=== PATIENT | male | born 1935 | race Caucasian/White ===

== ENCOUNTER 2017-06-18 09:41 | Emergency (ER) | payer OTHER ==
--- OUTSIDE RECORDS SUMMARY | 2017-06-18 09:43 | XMS REPORT | Clinical Summary ---
:1935 Author Organization [facility] Address [address] [place] [address] Phone Care Team Providers Name Role Phone Unavailable Primary Care Provider Unavailable Allergies No Known Allergies Current Medications Prescription Sig. Disp. Refills Start Date End Date Status aspirin 81 MG EC Take 81 mg by Active tabletIndications: mouth daily. myocardial infarction prevention atorvastatin (LIPITOR) 40 Take 40 mg by Active MG tabletIndications: mouth daily. hyperlipidemia levothyroxine (SYNTHROID, Take 100 mcg by Active LEVOTHROID) 100 MCG mouth Every tabletIndications: morning on an hypothyroidism empty stomach. DULoxetine (CYMBALTA) 60 Take 60 mg by Active MG capsuleIndications: mouth daily. Diabetic Peripheral Neuropathy SITagliptin-metFORMIN Take 1 tablet by Active (JANUMET) 50-1,000 mg per mouth 2 (two) tabletIndications: type 2 times daily with diabetes mellitus breakfast and dinner. valACYclovir (VALTREX) 500 Take 500 mg by Active MG tabletIndications: mouth daily. shingles tamsulosin (FLOMAX) 0.4 mg Take 0.4 mg by Active Cp24 24 hr mouth daily. capsuleIndications: Symptomatic Benign Prostatic Hyperplasia magnesium oxide (MAG-OX) Take 400 mg by Active 400 mg tablet mouth 2 (two) times daily. omeprazole (PRILOSEC) 40 Take 40 mg by Active MG capsuleIndications: mouth daily. gastroesophageal reflux disease midodrine (PROAMATINE) 10 Take 10 mg by Active MG tablet mouth 3 (three) times daily. fluticasone (VERAMYST) 2 sprays by Nasal Active 27.5 mcg/actuation nasal route daily. 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 Hypothyroidism 04/19/2017 Acute blood loss anemia 04/15/2017 Lower gastrointestinal bleeding 04/15/2017 RAHUL (acute kidney injury) (HCC) 04/15/2017 Encounters Date Type Specialty Care Team Description 04/17/2017 Anesthesia Event Gastroenterology Hilton Davis MD 04/17/2017 Procedure Pass Gastroenterology 04/17/2017 Surgery Gastroenterology Ken, COLONOSCOPY Roddy Gamez MD 04/15/2017 Hospital Intensive Care Annemarie, Acute blood loss - Encounter MD Kimberley anemia;Gastrointestina 04/20/2017 Mercer, l hemorrhage Dereddi Raja associated with MD Seymour intestinal diverticulosis;RAHUL (acute kidney injury) (HCC);Lower gastrointestinal bleeding 04/15/2017 Orders Only General Internal Medicine 04/15/2017 Telephone Critical Care Medicine Annemarie, GI bleeding MD Kimberley after 06/17/2016 Social History Tobacco Use Types Packs/Day Years Used Date Former Smoker Smokeless Tobacco: Former User Quit: 11/15/1968 Alcohol Use Drinks/Week oz/Week Comments Yes 1 Glasses of wine 0.6 Sex Assigned at Date Recorded Not on file Last Filed Vital Signs Vital Sign Reading Time Taken Blood Pressure 106/59 04/20/2017 5:00 PM EQUIPMENT MONITOR PHOTOTYPESETTING Pulse 93 04/20/2017 4:00 PM E[employer]IPMENT MON[employer]OR PHOTOTYPESETTING Temperature 36.9 C (98.5 F) 04/20/2017 4:00 PM E[employer]IPMENT MON[employer]OR PHOTOTYPESETTING Respiratory Rate 27 04/20/2017 4:00 PM E[employer]IPMENT MONITOR PHOTOTYPESETTING Oxygen Saturation 99% 04/20/2017 5:00 PM EQUIPMENT MONITOR PHOTOTYPESETTING Inhaled Oxygen Concentration - - Weight 92.5 kg (203 lb 14.8 oz) 04/20/2017 4:30 AM E[employer]IPMENT MONITOR PHOTOTYPESETTING Height 185.4 cm (6' 0.99") 04/20/2017 4:30 AM EQUIPMENT MONITOR PHOTOTYPESETTING Body Mass Index 26.91 04/20/2017 4:30 AM E[employer]IPMENT MON[employer]OR PHOTOTYPESETTING Plan of Treatment Not on file Procedures Procedure Name Priority Date/Time Associated Diagnosis Comments COLONOSCOPY 04/17/2017 10:00 AM EQUIPMENT MONITOR PHOTOTYPESETTING HEMATOCHEZIA Special Needs COLON WITH ANES after 06/17/2016 Results RHYTHM STRIP - SCAN (04/23/2017 8:50 AM)TRANSFUSION SERVICE REPORT - SCAN (07/2017 5:53 PM)Only the most recent of5 resultswithin the time period is included.POC-Glucose meter (04/20/2017 11:00 AM)Only the most recent of16 resultswithin the time period is included. Component Value Ref Range POC-Glucose Meter 238 (H)Comment: TESTED AT [address] 70 - 110 mg/[place] [address] Specimen Performing Laboratory Blood [address] [address] TSH/Free T4 If Indicated (04/20/2017 4:29 AM) Component Value Ref Range TSH 4.44 0.35 - 4.94 uIU/mL Specimen Performing Laboratory Blood - Line, Venous [address] [address] CBC with platelet count + automated diff (04/20/2017 4:29 AM)Only the most recent of6 resultswithin the time period is included. Component Value Ref Range WBC 6.3 3.5 - 10.5 K/L RBC 3.10 (L) 4.63 - 6.08 M/L Hemoglobin 9.1 (L) 13.7 - 17.5 GM/DL Hematocrit 27.7 (L) 40.1 - 51.0 % MCV 89.4 79.0 - 92.2 fL MCH 29.4 25.7 - 32.2 pg MCHC 32.9 32.3 - 36.5 GM/DL RDW 16.2 (H) 11.6 - 14.4 % Platelets 149 (L) 150 - 450 K/CU MM MPV 10.6 9.4 - 12.4 fL nRBC 0 0 - 0 /100 WBC % Neutros 60 % % Lymphs 17 % % Monos 10 % % Eos 11 % % Baso 1 % # Neutros 3.79 1.78 - 5.38 K/L # Lymphs 1.08 (L) 1.32 - 3.57 K/L # Monos 0.64 0.30 - 0.82 K/L # Eos 0.71 (H) 0.04 - 0.54 K/L # Baso 0.05 0.01 - 0.08 K/L Immature Granulocytes-Relative 1 0 - 1 % Specimen Performing Laboratory Blood - Line, Venous [address] [address] Hemoglobin and hematocrit (04/20/2017 4:29 AM)Only the most recent of12 resultswithin the time period is included. Component Value Ref Range Hemoglobin 9.1 (L) 13.7 - 17.5 GM/DL Hematocrit 27.7 (L) 40.1 - 51.0 % Specimen Performing Laboratory Blood - Line, [address] [address] CBC with platelet count + automated diff (04/20/2017 4:29 AM)Only the most recent of6 resultswithin the time period is included. Specimen Performing Laboratory Blood Narrative The following orders were created for panel order CBC with platelet count + automated diff. Procedure Abnormality Status --------- ------ CBC with platelet count ...[[id number]]AbnormalFinal result Please view results for these tests on the individual orders. Phosphorus (04/20/2017 4:29 AM)Only the most recent of6 resultswithin the time period is included. Component Value Ref Range Phosphorus 4.2 2.3 - 4.7 mg/dL Specimen Performing Laboratory Blood - Line, [address] [address] Magnesium (04/20/2017 4:29 AM)Only the most recent of6 resultswithin the time period is included. Component Value Ref Range Magnesium 1.8 1.6 - 2.6 mg/dL Specimen Performing Laboratory Blood - Line, [address] [address] Basic Metabolic Panel (04/20/2017 4:29 AM)Only the most recent of6 resultswithin the time period is included. Component Value Ref Range Sodium 137 136 - 145 meq/L Potassium 4.3 3.5 - 5.1 meq/L Chloride 108 (H) 98 - 107 meq/L CO2 23 22 - 29 meq/L BUN 13 7 - 21 mg/dL Creatinine 0.86 0.57 - 1.25 mg/dL Glucose 119 (H) 70 - 105 mg/dL Calcium 8.2 (L) 8.4 - 10.2 mg/dL EGFR 85Comment: ESTIMATED GFR IS NOT ACCURATE mL/min/1.73 sq m CREATININE CLEARANCE IN PREDICTING GLOMERULAR FILTRATION RATE. ESTIMATED GFR IS NOT APPLICABLE FOR DIALYSIS PATIENTS. Specimen Performing Laboratory Blood - Line, [address] [place] [address] Prepare Leuko-Red RBC (04/19/2017 11:54 PM)Only the most recent of2 resultswithin the time period is included. Component Value Ref Range CROSSMATCH COMPATIBLE Unit ABO O Pos UNIT NUMBER [id number] Status TRANSFUSED Blood Bank Product RED BLOOD CELLS PRODUCT CODE [id number] CROSSMATCH COMPATIBLE Unit ABO O Pos UNIT NUMBER [id number] Status TRANSFUSED Blood Bank Product RED BLOOD CELLS PRODUCT CODE [id number] Specimen Performing Laboratory Other [employer] [place] Transfuse Leuko-Red RBC (04/18/2017 9:46 AM)Only the most recent of2 resultswithin the time period is included.REPORT OF PROCEDURE - ENDOSCOPY URL ( 04/17/2017 12:14 PM)PT/aPTT (04/17/2017 5:39 AM)Only the most recent of2 resultswithin the time period is included. Component Value Ref Range Protime 15.4 (H) 11.7 - 14.7 seconds INR 1.2 <=5.9 PTT 28.3 22.5 - 36.0 seconds Specimen Performing Laboratory Blood [address] [address] Narrative RECOMMENDED COUMADIN/WARFARIN INR THERAPY RANGES STANDARD DOSE: 2.0 - 3.0 Includes: PROPHYLAXIS for venous thrombosis, systemic embolization; TREATMENT for venous thrombosis and/or pulmonary embolus. HIGH RISK: Target INR is 2.5-3.5 for patients with mechanical heart valves. Prothrombin time/INR (04/17/2017 5:39 AM)Only the most recent of3 resultswithin the time period is included. Component Value Ref Range Protime 15.4 (H) 11.7 - 14.7 seconds INR 1.2 <=5.9 Specimen Performing Laboratory Blood [address] [address] Narrative RECOMMENDED COUMADIN/WARFARIN INR THERAPY RANGES STANDARD DOSE: 2.0 - 3.0 Includes: PROPHYLAXIS for venous thrombosis, systemic embolization; TREATMENT for venous thrombosis and/or pulmonary embolus. HIGH RISK: Target INR is 2.5-3.5 for patients with mechanical heart valves. ECG 12 lead (04/15/2017 7:56 PM) Specimen Performing Laboratory GE [facility] Narrative Ventricular Rate 79 BPM Atrial Rate 79 BPM P-R Interval 150 ms QRS Duration 120 ms Q-T Interval 400 ms QTC Calculation(Bazett) 458 ms P Lenox 73 degrees R Lenox -4 degrees T Lenox 42 degrees Normal sinus rhythm Low voltage QRS Right bundle branch block Cannot rule out Inferior infarct , age undetermined Abnormal ECG No previous ECGs available Confirmed by MD ROONEY JOSEPH P ([id number]) on 04/16/2017 6:12:09 AM Procedure Note Interface, External Ris In - 04/16/2017 7:07 AM EQUIPMENT MONITOR PHOTOTYPESETTING Ventricular Rate 79 BPM Atrial Rate 79 BPM P-R Interval 150 ms QRS Duration 120 ms Q-T Interval 400 ms QTC Calculation(Bazett) 458 ms P Lenox 73 degrees R Lenox -4 degrees T Lenox 42 degrees Normal sinus rhythm Low voltage QRS Right bundle branch block Cannot rule out Inferior infarct , age undetermined Abnormal ECG No previous ECGs available Confirmed by MD ROONEY JOSEPH P ([id number]) on 04/16/2017 6:12:09 AM IR Visceral Arteriogram (04/15/2017 6:56 PM) Specimen Performing Laboratory [facility] [employer] Narrative FINAL REPORT Mesenteric angiogram, 04/15/2017. History: GI bleed. Modality: Fluoroscopy. Sedation: Versed 1.0 mg and fentanyl 50 mcg was given intravenously for conscious sedation.Vital signs were monitored throughout the procedure by a nurse, and remained stable. Physician intra-service time was 30 minutes. Anesthesia:Two percent Lidocaine without epinephrine. Approach:Right common femoral artery. Estimated blood loss:< 5 cc. Specimen: None. straw hat machine operator: Maxim Sims MD. Cook Roast: None. Fluoroscopy Time: 2.1 min. Reference Air Kerma (Ka, r): 360 mGy. Technique: Informed written consent was obtained. Discussion of risks, benefits, and alternatives were made with the patient. The patient expressed understanding and agreed to proceed.A universal timeout was performed prior to starting the procedure.All elements maximal sterile barrier technique was utilized for this procedure, including utilization of sterile scrub solution for skin prep, a large sterile sheet to cover the areas of the patient that were not prepped, and hand hygiene, mask, head covering, and sterile gown for performing radiologist and scrub technologist. The skin was anesthetized with lidocaine. The right common femoral artery was accessed usinga 21-gauge micropuncture needle.A 0.018 inch wire was placed through the needle into the distal aorta. The needle was removed and a 4 Anguillan micropuncture sheath was placed, and the 0.018 wire was exchanged for 0.035 inch J-wire. A 5 Anguillan sheath was placed. A 5 Anguillan Ag B catheter was used to select the celiac trunk and SMA for multiple DSA runs. This was exchanged for a Ag reverse 2.5 catheter which was used to select the ANUP for multiple DSA runs. The catheter was removed. Injection was performed through the sheath for a DSA run of the right femoral artery. The sheath was removed, the arteriotomy was closed, and hemostasis was obtained using a Mynx closure device. Vital signs were monitored throughout the procedure by a nurse, and remained stable.The patient tolerated the procedure well and left the department in the same condition. FINDINGS: 1. Celiac injection: There is patency of the left gastric, gastroduodenal, and splenic arteries. The left hepatic artery is normal in appearance and patent without evidence of active extravasation, pseudoaneurysm, or abnormal vasculature. 2. SMA injection: The superior mesenteric artery and its branches are normal in appearance and patent without evidence of active extravasation, pseudoaneurysm, or abnormal vasculature to indicate site of prior bleed. There is replaced right hepatic artery arising from the SMA 3. ANUP injection: The inferior mesenteric artery and its branches are normal in appearance and patent without evidence of active extravasation, pseudoaneurysm, or abnormal vasculature. 4. Right femoral sheath injection: The right common femoral artery is patent with normal position of the arterial sheath. Impression: 1. Uncomplicated mesenteric angiogram. 2. No evidence of active GI bleed. 3. Arteriotomy hemostasis obtained with Mynx closure device. Signed: Maxim Sims MD Report Verified Date/Time:04/22/2017 16:35:40 Reading Location: [facility] [id number] Ultrasound Reading Room Procedure Note Interface, External Ris In - 04/22/2017 4:37 PM EQUIPMENT MONITOR PHOTOTYPESETTING FINAL REPORT Mesenteric angiogram, 04/15/2017. History: GI bleed. Modality: Fluoroscopy. Sedation: Versed 1.0 mg and fentanyl 50 mcg was given intravenously for conscious sedation. Vital signs were monitored throughout the procedure by a nurse, and remained stable. Physician intra-service time was 30 minutes. Anesthesia: Two percent Lidocaine without epinephrine. Approach: Right common femoral artery. Estimated blood loss: < 5 cc. Specimen: None. straw hat machine operator: Maxim Sims MD. Cook Roast: None. Fluoroscopy Time: 2.1 min. Reference Air Kerma (Ka, r): 360 mGy. Technique: Informed written consent was obtained. Discussion of risks, benefits, and alternatives were made with the patient. The patient expressed understanding and agreed to proceed. A universal timeout was performed prior to starting the procedure. All elements maximal sterile barrier technique was utilized for this procedure, including utilization of sterile scrub solution for skin prep, a large sterile sheet to cover the areas of the patient that were not prepped, and hand hygiene, mask, head covering, and sterile gown for performing radiologist and scrub technologist. The skin was anesthetized with lidocaine. The right common femoral artery was accessed using a 21-gauge micropuncture needle. A 0.018 inch wire was placed through the needle into the distal aorta. The needle was removed and a 4 Anguillan micropuncture sheath was placed, and the 0.018 wire was exchanged for 0.035 inch J-wire. A 5 Anguillan sheath was placed. A 5 Anguillan Ag B catheter was used to select the celiac trunk and SMA for multiple DSA runs. This was exchanged for a Ag reverse 2.5 catheter which was used to select the ANUP for multiple DSA runs. The catheter was removed. Injection was performed through the sheath for a DSA run of the right femoral artery. The sheath was removed, the arteriotomy was closed, and hemostasis was obtained using a Mynx closure device. Vital signs were monitored throughout the procedure by a nurse, and remained stable. The patient tolerated the procedure well and left the department in the same condition. FINDINGS: 1. Celiac injection: There is patency of the left gastric, gastroduodenal, and splenic arteries. The left hepatic artery is normal in appearance and patent without evidence of active extravasation, pseudoaneurysm, or abnormal vasculature. 2. SMA injection: The superior mesenteric artery and its branches are normal in appearance and patent without evidence of active extravasation, pseudoaneurysm, or abnormal vasculature to indicate site of prior bleed. There is replaced right hepatic artery arising from the SMA 3. ANUP injection: The inferior mesenteric artery and its branches are normal in appearance and patent without evidence of active extravasation, pseudoaneurysm, or abnormal vasculature. 4. Right femoral sheath injection: The right common femoral artery is patent with normal position of the arterial sheath. Impression: 1. Uncomplicated mesenteric angiogram. 2. No evidence of active GI bleed. 3. Arteriotomy hemostasis obtained with Mynx closure device. Signed: Maxim Sims MD Report Verified Date/Time: 04/22/2017 16:35:40 Reading Location: [facility] B1 [id number] Ultrasound Reading Room Procalcitonin (04/15/2017 5:23 PM) Component Value Ref Range Procalcitonin <0.05 <0.05 ng/mL Specimen Performing Laboratory [place] [address] Narrative SEPSIS RISK (ng/mL) Low:0.05-0.50 Intermediate: 0.51-2.00 High: >=2.01 XR chest 1 view portable / bedside (04/15/2017 5:23 PM) Specimen Performing Laboratory GE RIS Narrative FINAL REPORT TECHNIQUE: Frontal chest radiograph dated 04/15/2017. CLINICAL HISTORY: Shortness of breath COMPARISON STUDY: None IMPRESSION: Right-sided PICC is seen with the tip projected over the region of the right atrium. Lungs are clear. No pleural effusion or pneumothorax. Cardiomediastinal silhouette is normal in size. No pulmonary edema. Midline sternotomy wires are intact and well aligned. No fracture. Degenerative changes are seen in the spine. Anterior cervical fusion hardware is partially visualized. Signed: Bettye Diallo MD Report Verified Date/Time:04/15/2017 17:31:41 Reading Location: [facility] Radiology Reading Room Procedure Note Interface, External Ris In - 04/15/2017 5:33 PM EQUIPMENT MONITOR PHOTOTYPESETTING FINAL REPORT TECHNIQUE: Frontal chest radiograph dated 04/15/2017. CLINICAL HISTORY: Shortness of breath COMPARISON STUDY: None IMPRESSION: Right-sided PICC is seen with the tip projected over the region of the right atrium. Lungs are clear. No pleural effusion or pneumothorax. Cardiomediastinal silhouette is normal in size. No pulmonary edema. Midline sternotomy wires are intact and well aligned. No fracture. Degenerative changes are seen in the spine. Anterior cervical fusion hardware is partially visualized. Signed: Bettye Diallo MD Report Verified Date/Time: 04/15/2017 17:31:41 Reading Location: [facility] Radiology Reading Room Lactic acid, venous, whole blood (04/15/2017 5:23 PM) Component Value Ref Range Lactate, Venous 1.1 0.5 - 2.2 mmol/L Specimen Performing Laboratory Blood [address] [address] Narrative Effective 06/19/2015: Units/Reference Range Change New: 0.5-2.2 mmol/LPrevious: 5-20 mg/dL Type and screen, automated (04/15/2017 4:30 PM) Component Value Ref Range ABO/RH AUTOMATED (BEAKER) O POSITIVE Ab Scrn NEGATIVE Specimen Performing Laboratory Blood [address] [address] Hepatic function panel (04/15/2017 4:30 PM) Component Value Ref Range Protein, Total 4.5 (L) 6.0 - 8.3 gm/dL Albumin 2.8 (L) 3.5 - 5.0 g/dL Total Bilirubin 0.7 0.2 - 1.2 mg/dL Bilirubin, Direct 0.3 0.1 - 0.5 mg/dL Alkaline Phosphatase 34 (L) 40 - 150 U/L AST 16 5 - 34 U/L ALT 11 6 - 55 U/L Specimen Performing Laboratory Blood [address] [address] after 06/17/2016
--- OUTSIDE RECORDS SUMMARY | 2017-06-18 09:44 | XMS REPORT ---
:1935 Author Organization [facility] Address [address] [place] [address] Care Team Providers Name Role Phone COLIN ZULETA Unavailable Unavailable Problems This patient has no known problems. Allergies, Adverse Reactions, Alerts This patient has no known allergies or adverse reactions. Medications This patient has no known medications. Results Test Description Test Time Test Comments Text Results Atomic Results Result Comments TRACY RIDLEY 2017-04-22 16:35:00 FINAL REPORT Mesenteric angiogram, 04/15/2017. History: GI bleed. Modality: Fluoroscopy. Sedation: Versed 1.0 mg and fentanyl 50 mcg was given intravenously for conscious sedation. Vital signs were monitored throughout the procedure by a nurse, and remained stable. Physician intra-service time was 30 minutes. Anesthesia: Two percent Lidocaine without epinephrine. Approach: Right common femoral artery. Estimated blood loss: < 5 cc. Specimen: None. knitter operator: Maxim Sims MD. Freight And Passenger Agent: None. Fluoroscopy Time: 2.1 min.Reference Air Kerma (Ka, r): 360 mGy. Technique: [...] The needle was removed and a 4 [place] micropuncture sheath was placed, and the 0.018 wire was exchanged for 0.035 inch J-wire. A 5 [place] sheath was placed. A 5 [place] Ag B catheter was used to select [...] evidence of active extravasation, pseudoaneurysm, or abnormal vasculature.2. SMA injection: The superior mesenteric artery and its branches are normal in appearance and patent without evidence of active extravasation, pseudoaneurysm, or abnormal vasculature to indicate site of prior bleed. There is replaced right hepatic artery arising from the SMA3. ANUP injection: The inferior mesenteric artery and its branches are normal in appearance and patent without evidence of active extravasation, pseudoaneurysm, or abnormal vasculature.4. Right femoral sheath injection: The right common femoral artery is patent with normal position of the arterial sheath. Impression: 1. Uncomplicated mesenteric angiogram.2. No evidence of active GI bleed.3. Arteriotomy hemostasis obtained with Mynx closure device. Signed: Maxim Sims Verified Date/Time: 04/22/2017 16:35:40 Reading Location: [address] Ultrasound Reading Room -GLUCOSE METER 2017-04-20 11:27:00 Test Item Value Reference Range Comments POC-GLUCOSE METER (BEAKER) (test 238 mg/dL 70-110 TESTED AT [address] dsbf=3472) [facility] [address] POCT-GLUCOSE [id number] 08:08:00 Test Item Value Reference Range Comments POC-GLUCOSE METER (BEAKER) 146 mg/dL 70-110 TESTED AT [address] (test hzrj=0361) [facility] [address] TSH/FREE T4 IF [id number] 05:24:00 Test Item Value Reference Range Comments THYROID STIMULATING HORMONE (BEAKER) (test 4.44 uIU/mL 0.35-4.94 vcwt=980) [id number] 05:17:00 Test Item Value Reference Range Comments PHOSPHORUS (BEAKER) (test dzay=452) 4.2 mg/dL 2.3-4.7 [id number] 05:17:00 Test Item Value Reference Range Comments MAGNESIUM (BEAKER) (test ndvd=369) 1.8 mg/dL 1.6-2.6 BASIC METABOLIC [id number] 05:17:00 Test Item Value Reference Range Comments SODIUM (BEAKER) (test 137 meq/L 136-145 dkch=185) POTASSIUM (BEAKER) (test 4.3 meq/L 3.5-5.1 fdkx=319) CHLORIDE (BEAKER) (test 108 meq/L 98-107 pcui=096) CO2 (BEAKER) (test 23 meq/L 22-29 bwaj=860) BLOOD UREA NITROGEN 13 mg/dL 7-21 (BEAKER) (test sbja=581) CREATININE (BEAKER) (test 0.86 mg/dL 0.57-1.25 dach=150) GLUCOSE RANDOM (BEAKER) 119 mg/dL 70-105 (test btiq=564) CALCIUM (BEAKER) (test 8.2 mg/dL 8.4-10.2 yrln=867) EGFR (BEAKER) (test 85 mL/min/1.73 sq m ESTIMATED GFR IS NOT jkyb=5692) ACCURATE CREATININE CLEARANCE IN PREDICTING GLOMERULAR FILTRATION RATE. ESTIMATED GFR IS NOT APPLICABLE FOR DIALYSIS PATIENTS. CBC W/PLT COUNT & AUTO [id number] 04:53:00 Test Item Value Reference Range Comments WHITE BLOOD CELL COUNT (BEAKER) (test xlck=581) 6.3 K/ L 3.5-10.5 RED BLOOD CELL COUNT (BEAKER) (test npqt=876) 3.10 M/ L 4.63-6.08 HEMOGLOBIN (BEAKER) (test irmr=800) 9.1 GM/DL 13.7-17.5 HEMATOCRIT (BEAKER) (test efbm=946) 27.7 % 40.1-51.0 MEAN CORPUSCULAR VOLUME (BEAKER) (test edbs=647) 89.4 fL 79.0-92.2 MEAN CORPUSCULAR HEMOGLOBIN (BEAKER) (test 29.4 pg 25.7-32.2 obau=330) MEAN CORPUSCULAR HEMOGLOBIN CONC (BEAKER) (test 32.9 GM/DL 32.3-36.5 uqjw=018) RED CELL DISTRIBUTION WIDTH (BEAKER) (test 16.2 % 11.6-14.4 yewd=921) PLATELET COUNT (BEAKER) (test awqo=491) 149 K/CU MM 150-450 MEAN PLATELET VOLUME (BEAKER) (test awdc=903) 10.6 fL 9.4-12.4 NUCLEATED RED BLOOD CELLS (BEAKER) (test 0 /100 WBC 0-0 stiz=911) NEUTROPHILS RELATIVE PERCENT (BEAKER) (test 60 % ujgr=684) LYMPHOCYTES RELATIVE PERCENT (BEAKER) (test 17 % heit=533) MONOCYTES RELATIVE PERCENT (BEAKER) (test 10 % foks=089) EOSINOPHILS RELATIVE PERCENT (BEAKER) (test 11 % ykkc=369) BASOPHILS RELATIVE PERCENT (BEAKER) (test 1 % jpir=125) NEUTROPHILS ABSOLUTE COUNT (BEAKER) (test 3.79 K/ L 1.78-5.38 qqzh=100) LYMPHOCYTES ABSOLUTE COUNT (BEAKER) (test 1.08 K/ L 1.32-3.57 lejg=491) MONOCYTES ABSOLUTE COUNT (BEAKER) (test 0.64 K/ L 0.30-0.82 lbti=116) EOSINOPHILS ABSOLUTE COUNT (BEAKER) (test 0.71 K/ L 0.04-0.54 ptch=735) BASOPHILS ABSOLUTE COUNT (BEAKER) (test 0.05 K/ L 0.01-0.08 gqiw=910) IMMATURE GRANULOCYTES-RELATIVE PERCENT (BEAKER) 1 % 0-1 (test juju=2488) HEMOGLOBIN AND [id number] 04:48:00 Test Item Value Reference Range Comments HEMOGLOBIN (BEAKER) (test xrtq=658) 9.1 GM/DL 13.7-17.5 HEMATOCRIT (BEAKER) (test mcqi=400) 27.7 % 40.1-51.0 POCT-GLUCOSE [id number] 21:33:00 Test Item Value Reference Range Comments POC-GLUCOSE METER (BEAKER) 268 mg/dL 70-110 TESTED AT [address] (test edln=3989) [facility] [address] POCT-GLUCOSE [id number] 17:36:00 Test Item Value Reference Range Comments POC-GLUCOSE METER (BEAKER) 131 mg/dL 70-110 TESTED AT [address] (test uesx=6622) [facility] [address] HEMOGLOBIN AND [id number] 17:09:00 Test Item Value Reference Range Comments HEMOGLOBIN (BEAKER) (test scgv=869) 9.1 GM/DL 13.7-17.5 HEMATOCRIT (BEAKER) (test rkkr=601) 27.0 % 40.1-51.0 POCT-GLUCOSE [id number] 11:29:00 Test Item Value Reference Range Comments POC-GLUCOSE METER (BEAKER) 243 mg/dL 70-110 TESTED AT [address] (test okot=1690) [place] [id number] BASIC METABOLIC [id number] 04:05:00 Test Item Value Reference Range Comments SODIUM (BEAKER) (test 136 meq/L 136-145 xkvs=644) POTASSIUM (BEAKER) (test 3.8 meq/L 3.5-5.1 fbmo=856) CHLORIDE (BEAKER) (test 107 meq/L 98-107 hjbj=307) CO2 (BEAKER) (test 24 meq/L 22-29 dcuh=446) BLOOD UREA NITROGEN 11 mg/dL 7-21 (BEAKER) (test ocwv=397) CREATININE (BEAKER) (test 0.78 mg/dL 0.57-1.25 qqix=295) GLUCOSE RANDOM (BEAKER) 116 mg/dL 70-105 (test wfab=492) CALCIUM (BEAKER) (test 7.8 mg/dL 8.4-10.2 tuoa=408) EGFR (BEAKER) (test 96 mL/min/1.73 sq m ESTIMATED GFR IS NOT tpuu=9348) ACCURATE CREATININE CLEARANCE IN PREDICTING GLOMERULAR FILTRATION RATE. ESTIMATED GFR IS NOT APPLICABLE FOR DIALYSIS PATIENTS. [id number] 03:52:00 Test Item Value Reference Range Comments PHOSPHORUS (BEAKER) (test qcxn=156) 3.5 mg/dL 2.3-4.7 [id number] 03:52:00 Test Item Value Reference Range Comments MAGNESIUM (BEAKER) (test oulw=402) 1.6 mg/dL 1.6-2.6 CBC W/PLT COUNT & AUTO [id number] 03:42:00 Test Item Value Reference Range Comments WHITE BLOOD CELL COUNT (BEAKER) (test oqyw=706) 6.7 K/ L 3.5-10.5 RED BLOOD CELL COUNT (BEAKER) (test hqvr=397) 2.91 M/ L 4.63-6.08 HEMOGLOBIN (BEAKER) (test ztxj=731) 8.7 GM/DL 13.7-17.5 HEMATOCRIT (BEAKER) (test krqm=910) 25.8 % 40.1-51.0 MEAN CORPUSCULAR VOLUME (BEAKER) (test imzl=516) 88.7 fL 79.0-92.2 MEAN CORPUSCULAR HEMOGLOBIN (BEAKER) (test 29.9 pg 25.7-32.2 uejp=204) MEAN CORPUSCULAR HEMOGLOBIN CONC (BEAKER) (test 33.7 GM/DL 32.3-36.5 kmpe=265) RED CELL DISTRIBUTION WIDTH (BEAKER) (test 15.9 % 11.6-14.4 lqza=394) PLATELET COUNT (BEAKER) (test qsnk=995) 120 K/CU MM 150-450 MEAN PLATELET VOLUME (BEAKER) (test maen=279) 10.0 fL 9.4-12.4 NUCLEATED RED BLOOD CELLS (BEAKER) (test 0 /100 WBC 0-0 pbxx=209) NEUTROPHILS RELATIVE PERCENT (BEAKER) (test 66 % btym=082) LYMPHOCYTES RELATIVE PERCENT (BEAKER) (test 15 % wpel=822) MONOCYTES RELATIVE PERCENT (BEAKER) (test 9 % yqij=501) EOSINOPHILS RELATIVE PERCENT (BEAKER) (test 10 % glkv=336) BASOPHILS RELATIVE PERCENT (BEAKER) (test 0 % clqj=860) NEUTROPHILS ABSOLUTE COUNT (BEAKER) (test 4.39 K/ L 1.78-5.38 egeh=638) LYMPHOCYTES ABSOLUTE COUNT (BEAKER) (test 1.03 K/ L 1.32-3.57 puvg=940) MONOCYTES ABSOLUTE COUNT (BEAKER) (test 0.57 K/ L 0.30-0.82 ywcf=001) EOSINOPHILS ABSOLUTE COUNT (BEAKER) (test 0.64 K/ L 0.04-0.54 btzw=883) BASOPHILS ABSOLUTE COUNT (BEAKER) (test 0.03 K/ L 0.01-0.08 oazj=741) IMMATURE GRANULOCYTES-RELATIVE PERCENT (BEAKER) 1 % 0-1 (test ybct=3322) POCT-GLUCOSE [id number] 23:56:00 Test Item Value Reference Range Comments POC-GLUCOSE METER (BEAKER) 149 mg/dL 70-110 TESTED AT [address] (test qdqd=7347) [place] [address] HEMOGLOBIN AND [id number] 23:48:00 Test Item Value Reference Range Comments HEMOGLOBIN (BEAKER) (test wdct=945) 8.3 GM/DL 13.7-17.5 HEMATOCRIT (BEAKER) (test wqxw=496) 24.7 % 40.1-51.0 POCT-GLUCOSE [id number] 18:37:00 Test Item Value Reference Range Comments POC-GLUCOSE METER (BEAKER) 149 mg/dL 70-110 TESTED AT [address] (test dczw=7175) [place] [address] HEMOGLOBIN AND [id number] 14:27:00 Test Item Value Reference Range Comments HEMOGLOBIN (BEAKER) (test rawl=663) 9.0 GM/DL 13.7-17.5 HEMATOCRIT (BEAKER) (test lnfu=975) 27.0 % 40.1-51.0 POCT-GLUCOSE [id number] 12:21:00 Test Item Value Reference Range Comments POC-GLUCOSE METER (BEAKER) 122 mg/dL 70-110 TESTED AT [address] (test emxw=8766) [place] [address] BASIC METABOLIC [id number] 04:49:00 Test Item Value Reference Range Comments SODIUM (BEAKER) (test 136 meq/L 136-145 ahtw=827) POTASSIUM (BEAKER) (test 3.7 meq/L 3.5-5.1 susj=424) CHLORIDE (BEAKER) (test 109 meq/L 98-107 iyij=623) CO2 (BEAKER) (test 21 meq/L 22-29 apvg=915) BLOOD UREA NITROGEN 14 mg/dL 7-21 (BEAKER) (test svpw=343) CREATININE (BEAKER) (test 0.77 mg/dL 0.57-1.25 pqbu=617) GLUCOSE RANDOM (BEAKER) 134 mg/dL 70-105 (test wewe=066) CALCIUM (BEAKER) (test 7.6 mg/dL 8.4-10.2 qrke=454) EGFR (BEAKER) (test 97 mL/min/1.73 sq m ESTIMATED GFR IS NOT kdme=0628) ACCURATE CREATININE CLEARANCE IN PREDICTING GLOMERULAR FILTRATION RATE. ESTIMATED GFR IS NOT APPLICABLE FOR DIALYSIS PATIENTS. [id number] 04:43:00 Test Item Value Reference Range Comments MAGNESIUM (BEAKER) (test vuec=447) 1.5 mg/dL 1.6-2.6 [id number] 04:43:00 Test Item Value Reference Range Comments PHOSPHORUS (BEAKER) (test lcpk=244) 3.4 mg/dL 2.3-4.7 CBC W/PLT COUNT & AUTO [id number] 04:16:00 Test Item Value Reference Range Comments WHITE BLOOD CELL COUNT 5.2 K/ L 3.5-10.5 (BEAKER) (test xngm=256) RED BLOOD CELL COUNT (BEAKER) 2.25 M/ L 4.63-6.08 (test ftnu=901) HEMOGLOBIN (BEAKER) (test 6.7 GM/DL 13.7-17.5 egbg=205) HEMATOCRIT (BEAKER) (test 20.9 % 40.1-51.0 muyd=552) MEAN CORPUSCULAR VOLUME 92.9 fL 79.0-92.2 Discordant MCV results (BEAKER) (test urwt=476) compared to previous results; clinical correlation required. MEAN CORPUSCULAR HEMOGLOBIN 29.8 pg 25.7-32.2 (BEAKER) (test zjwv=921) MEAN CORPUSCULAR HEMOGLOBIN 32.1 GM/DL 32.3-36.5 CONC (BEAKER) (test kkzg=142) RED CELL DISTRIBUTION WIDTH 16.0 % 11.6-14.4 (BEAKER) (test fzhz=542) PLATELET COUNT (BEAKER) (test 92 K/CU MM 150-450 lnvg=471) MEAN PLATELET VOLUME (BEAKER) 10.9 fL 9.4-12.4 (test zehs=290) NUCLEATED RED BLOOD CELLS 0 /100 WBC 0-0 (BEAKER) (test ncqc=608) NEUTROPHILS RELATIVE PERCENT 66 % (BEAKER) (test iaeg=115) LYMPHOCYTES RELATIVE PERCENT 16 % (BEAKER) (test apvy=845) MONOCYTES RELATIVE PERCENT 7 % (BEAKER) (test yaba=304) EOSINOPHILS RELATIVE PERCENT 9 % (BEAKER) (test ouam=298) BASOPHILS RELATIVE PERCENT 0 % (BEAKER) (test opxf=196) NEUTROPHILS ABSOLUTE COUNT 3.45 K/ L 1.78-5.38 (BEAKER) (test jark=143) LYMPHOCYTES ABSOLUTE COUNT 0.85 K/ L 1.32-3.57 (BEAKER) (test hdvq=840) MONOCYTES ABSOLUTE COUNT 0.38 K/ L 0.30-0.82 (BEAKER) (test mvcl=658) EOSINOPHILS ABSOLUTE COUNT 0.47 K/ L 0.04-0.54 (BEAKER) (test wpsi=056) BASOPHILS ABSOLUTE COUNT 0.02 K/ L 0.01-0.08 (BEAKER) (test tehm=371) IMMATURE GRANULOCYTES-RELATIVE 1 % 0-1 PERCENT (BEAKER) (test ocyh=7528) HEMOGLOBIN AND [id number] 23:11:00 Test Item Value Reference Range Comments HEMOGLOBIN (BEAKER) (test vipz=908) 7.4 GM/DL 13.7-17.5 HEMATOCRIT (BEAKER) (test rfps=366) 22.0 % 40.1-51.0 POCT-GLUCOSE [id number] 22:00:00 Test Item Value Reference Range Comments POC-GLUCOSE METER (BEAKER) 163 mg/dL 70-110 TESTED AT [address] (test mpun=8789) [place] [id number] POCT-GLUCOSE [id number] 17:19:00 Test Item Value Reference Range Comments POC-GLUCOSE METER (BEAKER) 151 mg/dL 70-110 TESTED AT [address] (test oihl=3394) [place] [id number] HEMOGLOBIN AND [id number] 16:24:00 Test Item Value Reference Range Comments HEMOGLOBIN (BEAKER) (test nfju=462) 8.4 GM/DL 13.7-17.5 HEMATOCRIT (BEAKER) (test eppx=736) 25.2 % 40.1-51.0 POCT-GLUCOSE [id number] 09:30:00 Test Item Value Reference Range Comments POC-GLUCOSE METER (BEAKER) 96 mg/dL 70-110 [address] (test ejgx=0691) [facility] [address] CBC W/PLT COUNT & AUTO [id number] 09:10:00 Test Item Value Reference Range Comments WHITE BLOOD CELL COUNT (BEAKER) (test bjot=636) 7.4 K/ L 3.5-10.5 RED BLOOD CELL COUNT (BEAKER) (test vwhk=276) 2.36 M/ L 4.63-6.08 HEMOGLOBIN (BEAKER) (test jliw=511) 6.8 GM/DL 13.7-17.5 HEMATOCRIT (BEAKER) (test vbgn=334) 20.9 % 40.1-51.0 MEAN CORPUSCULAR VOLUME (BEAKER) (test hcvr=300) 88.6 fL 79.0-92.2 MEAN CORPUSCULAR HEMOGLOBIN (BEAKER) (test 28.8 pg 25.7-32.2 ftvu=493) MEAN CORPUSCULAR HEMOGLOBIN CONC (BEAKER) (test 32.5 GM/DL 32.3-36.5 wpku=415) RED CELL DISTRIBUTION WIDTH (BEAKER) (test 16.3 % 11.6-14.4 ikyb=390) PLATELET COUNT (BEAKER) (test gdim=770) 128 K/CU MM 150-450 MEAN PLATELET VOLUME (BEAKER) (test vqgn=598) 9.5 fL 9.4-12.4 NUCLEATED RED BLOOD CELLS (BEAKER) (test 0 /100 WBC 0-0 xrae=237) NEUTROPHILS RELATIVE PERCENT (BEAKER) (test 72 % ovoi=534) LYMPHOCYTES RELATIVE PERCENT (BEAKER) (test 11 % hmpv=372) MONOCYTES RELATIVE PERCENT (BEAKER) (test 6 % kqqk=370) EOSINOPHILS RELATIVE PERCENT (BEAKER) (test 10 % wyzo=026) BASOPHILS RELATIVE PERCENT (BEAKER) (test 0 % cqch=405) NEUTROPHILS ABSOLUTE COUNT (BEAKER) (test 5.32 K/ L 1.78-5.38 tdgu=472) LYMPHOCYTES ABSOLUTE COUNT (BEAKER) (test 0.80 K/ L 1.32-3.57 pmso=176) MONOCYTES ABSOLUTE COUNT (BEAKER) (test 0.47 K/ L 0.30-0.82 uxdl=476) EOSINOPHILS ABSOLUTE COUNT (BEAKER) (test 0.74 K/ L 0.04-0.54 esus=252) BASOPHILS ABSOLUTE COUNT (BEAKER) (test 0.03 K/ L 0.01-0.08 iaue=306) IMMATURE GRANULOCYTES-RELATIVE PERCENT (BEAKER) 1 % 0-1 (test enya=4855) BASIC METABOLIC [id number] 07:12:00 Test Item Value Reference Range Comments SODIUM (BEAKER) (test 136 meq/L 136-145 rkuy=999) POTASSIUM (BEAKER) (test 3.7 meq/L 3.5-5.1 Specimen slightly eczw=454) hemolyzed CHLORIDE (BEAKER) (test 107 meq/L 98-107 jqjf=710) CO2 (BEAKER) (test 22 meq/L 22-29 mzzl=531) BLOOD UREA NITROGEN 13 mg/dL 7-21 (BEAKER) (test ssoo=234) CREATININE (BEAKER) (test 0.73 mg/dL 0.57-1.25 Specimen slightly aaqv=022) hemolyzed GLUCOSE RANDOM (BEAKER) 87 mg/dL 70-105 (test noss=151) CALCIUM (BEAKER) (test 7.5 mg/dL 8.4-10.2 cmuq=236) EGFR (BEAKER) (test 103 mL/min/1.73 sq m ESTIMATED GFR IS NOT lrhm=3738) ACCURATE CREATININE CLEARANCE IN PREDICTING GLOMERULAR FILTRATION RATE. ESTIMATED GFR IS NOT APPLICABLE FOR DIALYSIS PATIENTS. [id number] 07:10:00 Test Item Value Reference Range Comments MAGNESIUM (BEAKER) (test 1.7 mg/dL 1.6-2.6 Specimen slightly hemolyzed yoce=825) [id number] 07:10:00 Test Item Value Reference Range Comments PHOSPHORUS (BEAKER) (test 2.0 mg/dL 2.3-4.7 Specimen slightly hemolyzed efzt=597) [id number] 06:24:00 Test Item Value Reference Range Comments PROTIME (BEAKER) (test fzfe=454) 15.4 seconds 11.7-14.7 INR (BEAKER) (test rtpx=862) 1.2 <=5.9 PARTIAL THROMBOPLASTIN TIME (BEAKER) (test 28.3 seconds 22.5-36.0 aaaf=853) RECOMMENDED COUMADIN/WARFARIN INR THERAPY RANGESSTANDARD DOSE: 2.0 - 3.0 Includes: PROPHYLAXIS forvenous thrombosis, systemic embolization; TREATMENT for venous thrombosis and/or pulmonary embolus.HIGH RISK: Target INR is 2.5-3.5 for patients with mechanical heart valves.PROTHROMBIN [id number] 06:23: 00 Test Item Value Reference Range Comments PROTIME (BEAKER) (test pgkm=840) 15.4 seconds 11.7-14.7 INR (BEAKER) (test uopv=039) 1.2 <=5.9 RECOMMENDED COUMADIN/WARFARIN INR THERAPY RANGESSTANDARD DOSE: 2.0 - 3.0 Includes: PROPHYLAXIS forvenous thrombosis, systemic embolization; TREATMENT for venous thrombosis and/or pulmonary embolus.HIGH RISK: Target INR is 2.5-3.5 for patients with mechanical heart valves.HEMOGLOBIN AND [id number] 23 :40:00 Test Item Value Reference Range Comments HEMOGLOBIN (BEAKER) (test dcyx=214) 7.3 GM/DL 13.7-17.5 HEMATOCRIT (BEAKER) (test jcdk=479) 21.7 % 40.1-51.0 POCT-GLUCOSE [id number] 23:37:00 Test Item Value Reference Range Comments POC-GLUCOSE METER (BEAKER) 114 mg/dL 70-110 TESTED AT [address] (test uomg=7559) [facility] [address] HEMOGLOBIN AND [id number] 17:46:00 Test Item Value Reference Range Comments HEMOGLOBIN (BEAKER) (test afdy=415) 7.2 GM/DL 13.7-17.5 HEMATOCRIT (BEAKER) (test rkvm=073) 22.0 % 40.1-51.0 POCT-GLUCOSE [id number] 17:29:00 Test Item Value Reference Range Comments POC-GLUCOSE METER (BEAKER) 146 mg/dL 70-110 TESTED AT [address] (test kpyk=3098) [facility] [address] PROTHROMBIN [id number] 12:38:00 Test Item Value Reference Range Comments PROTIME (BEAKER) (test ucoh=391) 17.0 seconds 11.7-14.7 INR (BEAKER) (test lkib=805) 1.4 <=5.9 RECOMMENDED COUMADIN/WARFARIN INR THERAPY RANGESSTANDARD DOSE: 2.0 - 3.0 Includes: PROPHYLAXIS forvenous thrombosis, systemic embolization; TREATMENT for venous thrombosis and/or pulmonary embolus.HIGH RISK: Target INR is 2.5-3.5 for patients with mechanical heart valves.PT/[id number] 12:38:00 Test Item Value Reference Range Comments PROTIME (BEAKER) (test plho=929) 17.0 seconds 11.7-14.7 INR (BEAKER) (test wtfl=892) 1.4 <=5.9 PARTIAL THROMBOPLASTIN TIME (BEAKER) (test 31.4 seconds 22.5-36.0 ltxg=992) RECOMMENDED COUMADIN/WARFARIN INR THERAPY RANGESSTANDARD DOSE: 2.0 - 3.0 Includes: PROPHYLAXIS forvenous thrombosis, systemic embolization; TREATMENT for venous thrombosis and/or pulmonary embolus.HIGH RISK: Target INR is 2.5-3.5 for patients with mechanical heart valves.HEMOGLOBIN AND [id number] 12 :21:00 Test Item Value Reference Range Comments HEMOGLOBIN (BEAKER) (test ddni=862) 7.1 GM/DL 13.7-17.5 HEMATOCRIT (BEAKER) (test iqgj=322) 21.7 % 40.1-51.0 POCT-GLUCOSE [id number] 12:01:00 Test Item Value Reference Range Comments POC-GLUCOSE METER (BEAKER) 147 mg/dL 70-110 TESTED AT [facility] [address] [facility] (test qear=3506) [facility] [address] [id number] 09:30:00 Test Item Value Reference Range Comments PHOSPHORUS (BEAKER) (test ejbf=663) 2.3 mg/dL 2.3-4.7 [id number] 09:30:00 Test Item Value Reference Range Comments MAGNESIUM (BEAKER) (test xhlb=938) 1.8 mg/dL 1.6-2.6 BASIC METABOLIC [id number] 09:30:00 Test Item Value Reference Range Comments SODIUM (BEAKER) (test 140 meq/L 136-145 zxsg=370) POTASSIUM (BEAKER) (test 4.0 meq/L 3.5-5.1 iqma=982) CHLORIDE (BEAKER) (test 112 meq/L 98-107 lshv=008) CO2 (BEAKER) (test 25 meq/L 22-29 tsnx=837) BLOOD UREA NITROGEN 20 mg/dL 7-21 (BEAKER) (test pjka=631) CREATININE (BEAKER) (test 0.82 mg/dL 0.57-1.25 eppa=623) GLUCOSE RANDOM (BEAKER) 126 mg/dL 70-105 (test jfyl=899) CALCIUM (BEAKER) (test 7.4 mg/dL 8.4-10.2 zmrw=236) EGFR (BEAKER) (test 90 mL/min/1.73 sq m ESTIMATED GFR IS NOT owsy=2068) ACCURATE CREATININE CLEARANCE IN PREDICTING GLOMERULAR FILTRATION RATE. ESTIMATED GFR IS NOT APPLICABLE FOR DIALYSIS PATIENTS. CBC W/PLT COUNT & AUTO [id number] 08:40:00 Test Item Value Reference Range Comments WHITE BLOOD CELL COUNT (BEAKER) (test jugp=599) 9.3 K/ L 3.5-10.5 RED BLOOD CELL COUNT (BEAKER) (test mwpj=493) 2.56 M/ L 4.63-6.08 HEMOGLOBIN (BEAKER) (test znqh=912) 7.4 GM/DL 13.7-17.5 HEMATOCRIT (BEAKER) (test rhwq=103) 23.1 % 40.1-51.0 MEAN CORPUSCULAR VOLUME (BEAKER) (test qlim=566) 90.2 fL 79.0-92.2 MEAN CORPUSCULAR HEMOGLOBIN (BEAKER) (test 28.9 pg 25.7-32.2 slrf=547) MEAN CORPUSCULAR HEMOGLOBIN CONC (BEAKER) (test 32.0 GM/DL 32.3-36.5 zbue=888) RED CELL DISTRIBUTION WIDTH (BEAKER) (test 16.4 % 11.6-14.4 hupt=991) PLATELET COUNT (BEAKER) (test zcqc=027) 144 K/CU MM 150-450 MEAN PLATELET VOLUME (BEAKER) (test zfjd=751) 10.2 fL 9.4-12.4 NUCLEATED RED BLOOD CELLS (BEAKER) (test 0 /100 WBC 0-0 jhia=413) NEUTROPHILS RELATIVE PERCENT (BEAKER) (test 73 % bdbp=750) LYMPHOCYTES RELATIVE PERCENT (BEAKER) (test 9 % qunn=031) MONOCYTES RELATIVE PERCENT (BEAKER) (test 8 % cnhn=527) EOSINOPHILS RELATIVE PERCENT (BEAKER) (test 8 % tnnn=755) BASOPHILS RELATIVE PERCENT (BEAKER) (test 1 % ddbx=693) NEUTROPHILS ABSOLUTE COUNT (BEAKER) (test 6.84 K/ L 1.78-5.38 pyob=208) LYMPHOCYTES ABSOLUTE COUNT (BEAKER) (test 0.84 K/ L 1.32-3.57 ybij=001) MONOCYTES ABSOLUTE COUNT (BEAKER) (test 0.70 K/ L 0.30-0.82 xjbw=051) EOSINOPHILS ABSOLUTE COUNT (BEAKER) (test 0.78 K/ L 0.04-0.54 rwqi=744) BASOPHILS ABSOLUTE COUNT (BEAKER) (test 0.08 K/ L 0.01-0.08 cqvi=962) IMMATURE GRANULOCYTES-RELATIVE PERCENT (BEAKER) 1 % 0-1 (test goky=7497) POCT-GLUCOSE [id number] 07:17:00 Test Item Value Reference Range Comments POC-GLUCOSE METER (BEAKER) 151 mg/dL 70-110 TESTED AT [address] (test wkyn=7673) [facility] [address] POCT-GLUCOSE [id number] 02:45:00 Test Item Value Reference Range Comments POC-GLUCOSE METER (BEAKER) 164 mg/dL 70-110 TESTED AT [address] (test drhq=7244) [facility] [address] HEMOGLOBIN AND [id number] 01:50:00 Test Item Value Reference Range Comments HEMOGLOBIN (BEAKER) (test nfwf=095) 6.3 GM/DL 13.7-17.5 HEMATOCRIT (BEAKER) (test grma=370) 19.7 % 40.1-51.0 HEMOGLOBIN AND [id number] 20:50:00 Test Item Value Reference Range Comments HEMOGLOBIN (BEAKER) (test syxb=746) 7.1 GM/DL 13.7-17.5 HEMATOCRIT (BEAKER) (test ihmm=390) 22.0 % 40.1-51.0 [id number] 19:35:00 Test Item Value Reference Range Comments PROCALCITONIN (BEAKER) (test hjyz=9654) < ng/mL <0.05 SEPSIS RISK (ng/mL)Low: 0.05-0.50Intermediate: 0.51-2.00High: & gt;=2.01LACTIC ACID, VENOUS, WHOLE [id number] 17:58:00 Test Item Value Reference Range Comments LACTATE BLOOD VENOUS (2) (BEAKER) (test 1.1 mmol/L 0.5-2.2 xqbg=0042) Effective 06/19/2015: Units/Reference Range ChangeNew: 0.5-2.2 mmol/L Previous: 5 -20 mg/dLRAD, CHEST, 1 VIEW, NON [id number] 17:31:00Reason for exam:-> SOBShould this be performed at the bedside?->YesFINAL REPORT TECHNIQUE: Frontal chest radiograph dated 04/15/2017. CLINICAL HISTORY: Shortness of breath COMPARISON STUDY: None IMPRESSION:Right-sided PICC is seen with the tip projected over the region of the right atrium. Lungs are clear. No pleural effusion or pneumothorax. Cardiomediastinal silhouette is normal in size. No pulmonary edema. Midline sternotomy wires are intactand well aligned. No fracture. Degenerative changes are seen in the spine. Anterior cervical fusion hardware is partially visualized. Signed: Bettye Dialloeport Verified Date/Time: 04/15/201717:31:41 Reading Location: [facility] Radiology Reading Room BASI METABOLIC [id number] 17:17:00 Test Item Value Reference Range Comments SODIUM (BEAKER) (test 141 meq/L 136-145 dqpa=218) POTASSIUM (BEAKER) (test 4.0 meq/L 3.5-5.1 ttyb=976) CHLORIDE (BEAKER) (test 112 meq/L 98-107 vavu=767) CO2 (BEAKER) (test 23 meq/L 22-29 gsgq=396) BLOOD UREA NITROGEN 25 mg/dL 7-21 (BEAKER) (test hafh=129) CREATININE (BEAKER) (test 0.81 mg/dL 0.57-1.25 kpqv=552) GLUCOSE RANDOM (BEAKER) 134 mg/dL 70-105 (test vrmb=711) CALCIUM (BEAKER) (test 7.4 mg/dL 8.4-10.2 zymm=064) EGFR (BEAKER) (test 91 mL/min/1.73 sq m ESTIMATED GFR IS NOT hnkr=4189) ACCURATE CREATININE CLEARANCE IN PREDICTING GLOMERULAR FILTRATION RATE. ESTIMATED GFR IS NOT APPLICABLE FOR DIALYSIS PATIENTS. [id number] 17:04:00 Test Item Value Reference Range Comments PHOSPHORUS (BEAKER) (test lrba=727) 2.4 mg/dL 2.3-4.7 [id number] 17:04:00 Test Item Value Reference Range Comments MAGNESIUM (BEAKER) (test fijo=574) 1.8 mg/dL 1.6-2.6 HEPATIC FUNCTION [id number] 17:04:00 Test Item Value Reference Range Comments TOTAL PROTEIN (BEAKER) (test dqyb=744) 4.5 gm/dL 6.0-8.3 ALBUMIN (BEAKER) (test ecoa=4737) 2.8 g/dL 3.5-5.0 BILIRUBIN TOTAL (BEAKER) (test lono=246) 0.7 mg/dL 0.2-1.2 BILIRUBIN DIRECT (BEAKER) (test pvmb=076) 0.3 mg/dL 0.1-0.5 ALKALINE PHOSPHATASE (BEAKER) (test wugi=044) 34 U/L 40-150 AST (SGOT) (BEAKER) (test wvmu=984) 16 U/L 5-34 ALT (SGPT) (BEAKER) (test dhvx=177) 11 U/L 6-55 PROTHROMBIN [id number] 16:47:00 Test Item Value Reference Range Comments PROTIME (BEAKER) (test bdjt=344) 16.8 seconds 11.7-14.7 INR (BEAKER) (test mlke=239) 1.4 <=5.9 RECOMMENDED COUMADIN/WARFARIN INR THERAPY RANGESSTANDARD DOSE: 2.0 - 3.0 Includes: PROPHYLAXIS forvenous thrombosis, systemic embolization; TREATMENT for venous thrombosis and/or pulmonary embolus.HIGH RISK: Target INR is 2.5-3.5 for patients with mechanical heart valves.CBC W/PLT COUNT & AUTO [id number] 16:41:00 Test Item Value Reference Range Comments WHITE BLOOD CELL COUNT (BEAKER) (test sjgi=434) 10.3 K/ L 3.5-10.5 RED BLOOD CELL COUNT (BEAKER) (test sngp=548) 2.70 M/ L 4.63-6.08 HEMOGLOBIN (BEAKER) (test keix=583) 7.4 GM/DL 13.7-17.5 HEMATOCRIT (BEAKER) (test ivll=210) 23.2 % 40.1-51.0 MEAN CORPUSCULAR VOLUME (BEAKER) (test mjdl=048) 85.9 fL 79.0-92.2 MEAN CORPUSCULAR HEMOGLOBIN (BEAKER) (test 27.4 pg 25.7-32.2 nftg=419) MEAN CORPUSCULAR HEMOGLOBIN CONC (BEAKER) (test 31.9 GM/DL 32.3-36.5 podw=181) RED CELL DISTRIBUTION WIDTH (BEAKER) (test 15.9 % 11.6-14.4 vfbt=683) PLATELET COUNT (BEAKER) (test oiuj=528) 155 K/CU MM 150-450 MEAN PLATELET VOLUME (BEAKER) (test rmzd=554) 10.1 fL 9.4-12.4 NUCLEATED RED BLOOD CELLS (BEAKER) (test 0 /100 WBC 0-0 qfwo=026) NEUTROPHILS RELATIVE PERCENT (BEAKER) (test 77 % zhyl=724) LYMPHOCYTES RELATIVE PERCENT (BEAKER) (test 10 % grvm=156) MONOCYTES RELATIVE PERCENT (BEAKER) (test 7 % gpbm=389) EOSINOPHILS RELATIVE PERCENT (BEAKER) (test 4 % nszo=622) BASOPHILS RELATIVE PERCENT (BEAKER) (test 1 % mbzt=611) NEUTROPHILS ABSOLUTE COUNT (BEAKER) (test 8.00 K/ L 1.78-5.38 psuo=948) LYMPHOCYTES ABSOLUTE COUNT (BEAKER) (test 1.01 K/ L 1.32-3.57 rupv=708) MONOCYTES ABSOLUTE COUNT (BEAKER) (test 0.73 K/ L 0.30-0.82 esko=979) EOSINOPHILS ABSOLUTE COUNT (BEAKER) (test 0.45 K/ L 0.04-0.54 perd=990) BASOPHILS ABSOLUTE COUNT (BEAKER) (test 0.07 K/ L 0.01-0.08 ltnn=195) IMMATURE GRANULOCYTES-RELATIVE PERCENT (BEAKER) 1 % 0-1 (test esyo=0378) HEMOGLOBIN AND [id number] 16:40:00 Test Item Value Reference Range Comments HEMOGLOBIN (BEAKER) (test kxrh=186) 7.4 GM/DL 13.7-17.5 HEMATOCRIT (BEAKER) (test nbes=554) 23.2 % 40.1-51.0
[2017-06-18] MEDS ORDERED: LIDOCAINE VISCOUS 2% SOLN 15 ML UDC ONE (10:26)
--- NOTE | 2017-06-18 11:16 | ER ---
Nurse's Notes [facility] Name: Mike Peña Age: 82 yrs Sex: Male : 1935 Arrival Date: 06/18/2017 Time: 09:44 Bed 10 Private MD: Diagnosis: Pain in throat Presentation: 06/18 09:56 Presenting complaint: Patient states: yesterday morning woke up with sore throat, feels iw like it's on fire, denies fever or chills, also has mild cough, hard time swallowing. Transition of care: patient was not received from another setting of care. Onset of symptoms was June 17, 2017. Initial Sepsis Screen: Does the patient meet any 2 criteria? No. Patient's initial sepsis screen is negative. Does the patient have a suspected source of infection? No. Patient's initial sepsis screen is negative. Care prior to arrival: None. 09:56 Method Of Arrival: Ambulatory iw 09:56 Acuity: BEKAH 4 iw Historical: - Allergies: 10:00 No Known Allergies; iw - PMHx: 10:00 Cancer; Diverticulitis; Diabetes - NIDDM; CARCINOMA; iw - PSHx: 10:00 CABG; Cholecystectomy; Disc surgery; Hernia repair; iw - Immunization history:: Pneumococcal vaccine is up to date. - Social history:: Smoking status: Patient/guardian denies using tobacco. Screenin:12 Abuse screen: Denies threats or abuse. Denies injuries from another. Nutritional iw screening: No deficits noted. Tuberculosis screening: No symptoms or risk factors identified. Fall Risk None identified. Assessment: 10:30 General: Appears in no apparent distress. Behavior is calm, cooperative. Pain: iw Complains of pain in throat. Respiratory: Airway is patent Respiratory effort is even, unlabored. Respiratory: Breath sounds are clear bilaterally. EENT: Throat is clear is pink bilaterally Reports difficulty swallowing pain when swallowing. 11:11 Reassessment: Patient appears in no apparent distress at this time. Patient and/or iw family updated on plan of care and expected duration. Pain level reassessed. Patient is alert, oriented x 3, equal unlabored respirations, skin warm/dry/pink. Vital Signs: 10:01 BP 127 / 76; Pulse 90; Resp 16 S; Temp 98.5(TE); Pulse Ox 96% on R/A; Weight 81.65 kg iw (R); Height 6 ft. 1 in. (185.42 cm) (R); Pain 8/10; 10:01 Body Mass Index 23.75 (81.65 kg, 185.42 cm) iw ED Course: 09:44 Patient arrived in ED. as 09:58 Triage completed. iw 10:01 Arm band placed on. iw 10:10 Antoinette Calle, RN is Primary Nurse. iw 10:14 [facility] Bronson [facility]-C [facility]. kb 10:14 Sang Jones MD is Attending Physician. kb 11:26 Patient has correct armband on for positive identification. iw 11:26 No provider procedures requiring assistance completed. Patient did not have IV access iw during this emergency room visit. Administered Medications: 10:38 Drug: Viscous Lidocaine Liquid (4 %) 5 ml Route: Mucous Membrane; iw Outcome: 11:15 Discharge ordered by . kb 11:27 Discharged to home ambulatory. iw 11:27 Condition: good 11:27 Discharge instructions given to patient, Instructed on discharge instructions, follow iw up and referral plans. Demonstrated understanding of instructions, follow-up care. 11:28 Patient left the ED. iw Signatures: Tammy Bronson FNP-C FNP-Ckb Martinez, Amelia as Antoinette Calle, BIMAL RN iw
--- NOTE | 2017-06-18 11:16 | EDPHYS ---
Physician Documentation [facility] Name: Mike Peña Age: 82 yrs Sex: Male : 1935 Arrival Date: 06/18/2017 Time: 09:44 Bed 10 Private MD: ED Physician Sang Jones HPI: 06/18 10:54 This 82 yrs old Male presents to ER via Ambulatory with complaints of Sore kb Throat. 10:54 The patient presents with sore throat. The patient describes throat pain as constant. kb Onset: The symptoms/episode began/occurred yesterday. Severity of symptoms: At their worst the symptoms were mild, moderate, in the emergency department the symptoms are unchanged. Modifying factors: The symptoms are alleviated by nothing, the symptoms are aggravated by swallowing, Patient's oral intake status: good Denies contact with similarly ill indivduals. Associated signs and symptoms: Pertinent positives: Sore throat. The patient has not experienced similar symptoms in the past. The patient has not recently seen a physician. Pt reports sore throat that started yesterday morning. Denies fever. Historical: - Allergies: 10:00 No Known Allergies; iw - PMHx: 10:00 Cancer; Diverticulitis; Diabetes - NIDDM; CARCINOMA; iw - PSHx: 10:00 CABG; Cholecystectomy; Disc surgery; Hernia repair; iw - Immunization history:: Pneumococcal vaccine is up to date. - Social history:: Smoking status: Patient/guardian denies using tobacco. ROS: 10:54 Constitutional: Negative for fever, chills, and weight loss, Cardiovascular: Negative kb for chest pain, palpitations, and edema, Respiratory: Negative for shortness of breath, cough, wheezing, and pleuritic chest pain, Abdomen/GI: Negative for abdominal pain, nausea, vomiting, diarrhea, and constipation, MS/Extremity: Negative for injury and deformity, Skin: Negative for injury, rash, and discoloration, Neuro: Negative for headache, weakness, numbness, tingling, and seizure. 10:54 ENT: Positive for sore throat. Exam: 10:56 Constitutional: This is a well developed, well nourished patient who is awake, alert, kb and in no acute distress. Head/Face: Normocephalic, atraumatic. Neck: Trachea midline, no thyromegaly or masses palpated, and no cervical lymphadenopathy. Supple, full range of motion without nuchal rigidity, or vertebral point tenderness. No Meningismus. Chest/axilla: Normal chest wall appearance and motion. Nontender with no deformity. No lesions are appreciated. Cardiovascular: Regular rate and rhythm with a normal S1 and S2. No gallops, murmurs, or rubs. Normal PMI, no JVD. No pulse deficits. Respiratory: Lungs have equal breath sounds bilaterally, clear to auscultation and percussion. No rales, rhonchi or wheezes noted. No increased work of breathing, no retractions or nasal flaring. Abdomen/GI: Soft, non-tender, with normal bowel sounds. No distension or tympany. No guarding or rebound. No evidence of tenderness throughout. Skin: Warm, dry with normal turgor. Normal color with no rashes, no lesions, and no evidence of cellulitis. MS/ Extremity: Pulses equal, no cyanosis. Neurovascular intact. Full, normal range of motion. Neuro: Awake and alert, GCS 15, oriented to person, place, time, and situation. Cranial nerves II-XII grossly intact. Motor strength 5/5 in all extremities. Sensory grossly intact. Cerebellar exam normal. Normal gait. 10:56 ENT: Posterior pharynx: Airway: normal, no evidence of obstruction, Uvula: normal, midline, erythema, that is mild. Vital Signs: 10:01 BP 127 / 76; Pulse 90; Resp 16 S; Temp 98.5(TE); Pulse Ox 96% on R/A; Weight 81.65 kg iw (R); Height 6 ft. 1 in. (185.42 cm) (R); Pain 8/10; 10:01 Body Mass Index 23.75 (81.65 kg, 185.42 cm) iw MDM: 10:14 Patient medically screened. kb 10:56 Data reviewed: vital signs, nurses notes. Data interpreted: Pulse oximetry: on room air kb is 96 %. Interpretation: normal. 10:57 Counseling: I had a detailed discussion with the patient and/or guardian regarding: the kb historical points, exam findings, and any diagnostic results supporting the discharge/admit diagnosis, lab results, the need for outpatient follow up, an ENT specialist, to return to the emergency department if symptoms worsen or persist or if there are any questions or concerns that arise at home. 11:15 ED course: Pt reports pain has resolved. Pt is tolerating PO intake. No respiratory kb distress noted. Resp even and unlabored. . 06/18 10:01 Order name: Strep; Complete Time: 10:40 06/18 10:39 Order name: Throat Culture EDMS Administered Medications: 10:38 Drug: Viscous Lidocaine Liquid (4 %) 5 ml Route: Mucous Membrane; Disposition: 13:03 Co-signature as Attending Physician, Sang Jones MD I agree with the assessment and wa plan of care. Disposition: 06/18/17 11:15 Discharged to Home. Impression: Pain in throat. - Condition is Stable. - Discharge Instructions: Salt Water Gargle, Sore Throat, [id number]. - Medication Reconciliation Form, Thank You Letter, Antibiotic Education, Prescription Opioid Use form. - Follow up: Private Physician; When: 2 - 3 days; Reason: Recheck today's complaints, Continuance of care, Re-evaluation by your physician. Follow up: Emergency Department; When: As needed; Reason: Worsening of condition. Signatures: Dispatcher [employer] EDOK Tammy Bronson, SPECIAL PROJECTS COORDINATOR-C SPECIAL PROJECTS COORDINATOR-Antoinette Carvalho RN RN Robert, MD AYAZ Domínguez sd Corrections: (The following items were deleted from the chart) 11:28 11:15 06/18/2017 11:15 Discharged to Home. Impression: Pain in throat. Condition is iw Stable. Discharge Instructions: Salt Water Gargle, Sore Throat, [id number]. Forms are Medication Reconciliation Form, Thank You Letter, Antibiotic Education, Prescription Opioid Use. Follow up: Private Physician; When: 2 - 3 days; Reason: Recheck today's complaints, Continuance of care, Re-evaluation by your physician. Follow up: Emergency Department; When: As needed; Reason: Worsening of condition. kb
[2017-06-18 11:36] VITALS: BP 127/76; TEMP 98.5; O2SAT 96
== END 2017-06-18 11:28 | disposition home or self-care (01) ==
LOC: ER 09:41
DX: R07.0 Pain in throat (principal); E11.9 Type 2 diabetes mellitus without complications
CPT/HCPCS: 87070; 87081; 99283

== ENCOUNTER 2017-11-16 10:24 | Emergency (ER) | payer OTHER ==
--- OUTSIDE RECORDS SUMMARY | 2017-11-16 10:33 | XMS REPORT | Clinical Summary ---
:1935 Author Organization [facility] Address [address] [place] [address] Phone Care Team Providers Name Role Phone [...] Active Cp24 24 hr mouth daily. capsuleIndications: benign prostatic hyperplasia with lower urinary tract sx magnesium oxide (MAG-OX) Take 400 mg by [...] Medicine Annemarie, GI bleeding MD Kimberley after 11/15/2016 Social History Tobacco Use Types Packs/Day Years Used Date Former Smoker Smokeless Tobacco: Former User Quit: 11/15/1968 Alcohol Use Drinks/Week oz/Week Comments Yes 1 Glasses of wine 0.6 Sex Assigned at Date Recorded Not on file Last Filed Vital Signs Vital Sign Reading Time Taken Blood Pressure 106/59 04/20/2017 5:00 PM [facility] Pulse 93 04/20/2017 4:00 PM [facility] Temperature 36.9 C (98.5 F) 04/20/2017 4:00 PM [facility] Respiratory Rate 27 04/20/2017 4:00 PM [facility] Oxygen Saturation 99% 04/20/2017 5:00 PM [facility] Inhaled Oxygen Concentration - - Weight 92.5 kg (203 lb 14.8 oz) 04/20/2017 4:30 AM [facility] Height 185.4 cm (6' 0.99") 04/20/2017 4:30 AM [facility] Body Mass Index 26.91 04/20/2017 4:30 AM [facility] Plan of Treatment Not on file Procedures Procedure Name Priority Date/Time Associated Diagnosis Comments COLONOSCOPY 04/17/2017 10:00 AM [facility] HEMATOCHEZIA Special Needs COLON WITH ANES after 11/15/2016 Results RHYTHM STRIP - SCAN (04/23/2017 8:50 AM)TRANSFUSION SERVICE REPORT - SCAN (07/2017 5:53 PM)Only the most recent of5 resultswithin the time period is included.POC-Glucose meter (04/20/2017 11:00 AM)Only the most recent of16 resultswithin the time period is included. Component Value Ref Range POC-Glucose Meter 238 (H)Comment: TESTED AT [address] 70 - 110 mg/[place] [address] Specimen Performing Laboratory Blood [address] [address] TSH/Free T4 If Indicated (04/20/2017 4:29 AM) Component Value Ref Range TSH 4.44 0.35 - 4.94 uIU/mL Specimen Performing Laboratory Blood - Line, Venous [address] [address] CBC with platelet count + automated diff [...] Specimen Performing Laboratory Blood - Line, Venous [address] [address] Hemoglobin and hematocrit (04/20/2017 4:29 AM)Only the most recent of12 resultswithin the time period is included. Component Value Ref Range Hemoglobin 9.1 (L) 13.7 - 17.5 GM/DL Hematocrit 27.7 (L) 40.1 - 51.0 % Specimen Performing Laboratory Blood - Line, [address] [address] CBC with platelet count + automated diff (04/20/2017 4:29 AM)Only the most recent of6 resultswithin the time period is included. Specimen Performing Laboratory Blood Narrative The following orders were created for panel order CBC with platelet count + automated diff. Procedure Abnormality Status --------- ------ CBC with platelet count ...[[id number]]AbnormalFinal result Please view results for these tests on the individual orders. Phosphorus (04/20/2017 4:29 AM)Only the most recent of6 resultswithin the time period is included. Component Value Ref Range Phosphorus 4.2 2.3 - 4.7 mg/dL Specimen Performing Laboratory Blood - Line, [address] [address] Magnesium (04/20/2017 4:29 AM)Only the most recent of6 resultswithin the time period is included. Component Value Ref Range Magnesium 1.8 1.6 - 2.6 mg/dL Specimen Performing Laboratory Blood - Line, [address] [address] Basic Metabolic Panel (04/20/2017 4:29 AM)Only the [...] PATIENTS. Specimen Performing Laboratory Blood - Line, Venous [address] [address] Prepare Leuko-Red RBC (04/19/2017 11:54 PM)Only the most recent of2 resultswithin the time period is included. Component Value Ref Range CROSSMATCH COMPATIBLE Unit ABO O Pos UNIT NUMBER [id number] Status TRANSFUSED Blood Bank Product RED BLOOD CELLS PRODUCT CODE G1902S06 CROSSMATCH COMPATIBLE Unit ABO O Pos UNIT NUMBER [id number] Status TRANSFUSED Blood Bank Product RED BLOOD CELLS PRODUCT CODE [id number] Specimen Performing Laboratory Other [place] Transfuse [...] - 36.0 seconds Specimen Performing Laboratory Blood [address] [address] Narrative RECOMMENDED COUMADIN/WARFARIN INR THERAPY RANGES STANDARD [...] INR 1.2 <=5.9 Specimen Performing Laboratory Blood [address] [address] Narrative RECOMMENDED COUMADIN/WARFARIN INR THERAPY RANGES STANDARD [...] 400 ms QTC Calculation(Bazett) 458 ms P [place] 73 degrees R [place] -4 degrees T [place] 42 degrees Normal sinus rhythm Low voltage QRS Right bundle branch block Cannot rule out Inferior infarct , age undetermined Abnormal ECG No previous ECGs available Confirmed by MD ROONEY JOSEPH P ([id number]) on 04/16/2017 6:12:09 AM Procedure Note Interface, External Ris In - 04/16/2017 7:07 AM [facility] Ventricular Rate 79 BPM Atrial Rate 79 BPM P-R Interval 150 ms QRS Duration 120 ms Q-T Interval 400 ms QTC Calculation(Bazett) 458 ms P [place] 73 degrees R [place] -4 degrees T [place] 42 degrees Normal sinus rhythm Low voltage QRS Right bundle branch block Cannot rule out Inferior infarct , age undetermined Abnormal ECG No previous ECGs available Confirmed by MD ROONEY JOSEPH P ([id number]) on 04/16/2017 6:12:09 AM IR Visceral Arteriogram (04/15/2017 6:56 PM) Specimen Performing Laboratory [facility] Narrative FINAL REPORT Mesenteric angiogram, 04/15/2017. History: GI bleed. Modality: Fluoroscopy. Sedation: Versed 1.0 mg and fentanyl 50 mcg was given intravenously for conscious sedation.Vital signs were monitored throughout the procedure by a nurse, and remained stable. Physician intra-service time was 30 minutes. Anesthesia:Two percent Lidocaine without epinephrine. Approach:Right common femoral artery. Estimated blood loss:< 5 cc. Specimen: None. paper core machine operator: Maxim Sims MD. Remelter: None. Fluoroscopy Time: 2.1 min. Reference Air [...] The needle was removed and a 4 [place] micropuncture sheath was placed, and the 0.018 wire was exchanged for 0.035 inch J-wire. A 5 [place] sheath was placed. A 5 [place] Ag B catheter was used to select [...] MD Report Verified Date/Time:04/22/2017 16:35:40 Reading Location: [facility] B1 [id number] Ultrasound Reading Room Procedure Note Interface, External Ris In - 04/22/2017 4:37 PM [facility] FINAL REPORT Mesenteric angiogram, 04/15/2017. History: GI bleed. Modality: Fluoroscopy. Sedation: Versed 1.0 mg and fentanyl 50 mcg was given intravenously for conscious sedation. Vital signs were monitored throughout the procedure by a nurse, and remained stable. Physician intra-service time was 30 minutes. Anesthesia: Two percent Lidocaine without epinephrine. Approach: Right common femoral artery. Estimated blood loss: < 5 cc. Specimen: None. paper core machine operator: Maxim Sims MD. Remelter: None. Fluoroscopy Time: 2.1 min. Reference Air [...] The needle was removed and a 4 [place] micropuncture sheath was placed, and the 0.018 wire was exchanged for 0.035 inch J-wire. A 5 [place] sheath was placed. A 5 [place] Ag B catheter was used to select [...] Report Verified Date/Time: 04/22/2017 16:35:40 Reading Location: [facility] B1 [id number] Ultrasound Reading Room Procalcitonin (04/15/2017 5:23 PM) Component Value Ref Range Procalcitonin <0.05 <0.05 ng/mL Specimen Performing Laboratory [place] [address] Narrative SEPSIS RISK (ng/mL) Low:0.05-0.50 Intermediate: 0.51-2.00 [...] MD Report Verified Date/Time:04/15/2017 17:31:41 Reading Location: [facility] Radiology Reading Room Procedure Note Interface, External Ris In - 04/15/2017 5:33 PM [facility] FINAL REPORT TECHNIQUE: Frontal chest radiograph dated [...] Report Verified Date/Time: 04/15/2017 17:31:41 Reading Location: [facility] Radiology Reading Room Lactic acid, venous, whole blood (04/15/2017 5:23 PM) Component Value Ref Range Lactate, Venous 1.1 0.5 - 2.2 mmol/L Specimen Performing Laboratory Blood [address] [address] Narrative Effective 06/19/2015: Units/Reference Range Change New: 0.5-2.2 mmol/LPrevious: 5-20 mg/dL Type and screen, automated (04/15/2017 4:30 PM) Component Value Ref Range ABO/RH AUTOMATED (BEAKER) O POSITIVE Ab Scrn NEGATIVE Specimen Performing Laboratory Blood [address] [address] Hepatic function panel (04/15/2017 4:30 PM) Component Value Ref Range Protein, Total 4.5 (L) 6.0 - 8.3 gm/dL Albumin 2.8 (L) 3.5 - 5.0 g/dL Total Bilirubin 0.7 0.2 - 1.2 mg/dL Bilirubin, Direct 0.3 0.1 - 0.5 mg/dL Alkaline Phosphatase 34 (L) 40 - 150 U/L AST 16 5 - 34 U/L ALT 11 6 - 55 U/L Specimen Performing Laboratory Blood [address] [address] after 11/15/2016
--- OUTSIDE RECORDS SUMMARY | 2017-11-16 10:33 | XMS REPORT ---
:1935 [facility] Address [address] [place] [id number] Care Team Providers Name Role Phone COLIN ZULETA Unavailable Unavailable Problems This patient has no known problems. Allergies, Adverse Reactions, Alerts This patient has no known allergies or adverse reactions. Medications This patient has no known medications. Results Test Description Test Time Test Comments Text Results Atomic Results Result Comments TRACY RIDLEY Amador 2017-04-22 16:35:00 FINAL REPORT Mesenteric angiogram, 04/15/2017. [...] blood loss: < 5 cc. Specimen: None. intertype operator: Maxim Sims MD. Finished Goods Planner: None. Fluoroscopy Time: 2.1 min.Reference Air Kerma [...] The needle was removed and a 4 Austrian micropuncture sheath was placed, and the 0.018 wire was exchanged for 0.035 inch J-wire. A 5 Austrian sheath was placed. A 5 Austrian Ag B catheter was used to select [...] Sims Verified Date/Time: 04/22/2017 16:35:40 Reading Location: [address] Ultrasound Reading Room -GLUCOSE METER 2017-04-20 11:27:00 Test Item Value Reference Range Comments POC-GLUCOSE METER (BEAKER) (test 238 mg/dL 70-110 TESTED AT [address] udbb=1342) [facility] [address] POCT-GLUCOSE [id number] 08:08:00 Test Item Value Reference Range Comments POC-GLUCOSE METER (BEAKER) 146 mg/dL 70-110 TESTED AT [address] (test kazn=3862) [facility] [address] TSH/FREE T4 IF [id number] 05:24:00 Test Item Value Reference Range Comments THYROID STIMULATING HORMONE (BEAKER) (test 4.44 uIU/mL 0.35-4.94 ngws=870) [id number] 05:17:00 Test Item Value Reference Range Comments PHOSPHORUS (BEAKER) (test cfph=675) 4.2 mg/dL 2.3-4.7 [id number] 05:17:00 Test Item Value Reference Range Comments MAGNESIUM (BEAKER) (test fchy=687) 1.8 mg/dL 1.6-2.6 BASIC METABOLIC [id number] 05:17:00 Test Item Value Reference Range Comments SODIUM (BEAKER) (test 137 meq/L 136-145 xzrr=871) POTASSIUM (BEAKER) (test 4.3 meq/L 3.5-5.1 whpj=181) CHLORIDE (BEAKER) (test 108 meq/L 98-107 yojy=977) CO2 (BEAKER) (test 23 meq/L 22-29 onqh=046) BLOOD UREA NITROGEN 13 mg/dL 7-21 (BEAKER) (test vtad=732) CREATININE (BEAKER) (test 0.86 mg/dL 0.57-1.25 zqbs=800) GLUCOSE RANDOM (BEAKER) 119 mg/dL 70-105 (test pncq=650) CALCIUM (BEAKER) (test 8.2 mg/dL 8.4-10.2 yhej=039) EGFR (BEAKER) (test 85 mL/min/1.73 sq m ESTIMATED GFR IS NOT ffdt=2156) ACCURATE CREATININE CLEARANCE IN PREDICTING GLOMERULAR FILTRATION RATE. ESTIMATED GFR IS NOT APPLICABLE FOR DIALYSIS PATIENTS. CBC W/PLT COUNT & AUTO [id number] 04:53:00 Test Item Value Reference Range Comments WHITE BLOOD CELL COUNT (BEAKER) (test ualj=571) 6.3 K/ L 3.5-10.5 RED BLOOD CELL COUNT (BEAKER) (test lteq=384) 3.10 M/ L 4.63-6.08 HEMOGLOBIN (BEAKER) (test lcwe=954) 9.1 GM/DL 13.7-17.5 HEMATOCRIT (BEAKER) (test osgp=381) 27.7 % 40.1-51.0 MEAN CORPUSCULAR VOLUME (BEAKER) (test pisa=345) 89.4 fL 79.0-92.2 MEAN CORPUSCULAR HEMOGLOBIN (BEAKER) (test 29.4 pg 25.7-32.2 fhvc=499) MEAN CORPUSCULAR HEMOGLOBIN CONC (BEAKER) (test 32.9 GM/DL 32.3-36.5 mitn=555) RED CELL DISTRIBUTION WIDTH (BEAKER) (test 16.2 % 11.6-14.4 kijw=538) PLATELET COUNT (BEAKER) (test ttvq=917) 149 K/CU MM 150-450 MEAN PLATELET VOLUME (BEAKER) (test znzv=409) 10.6 fL 9.4-12.4 NUCLEATED RED BLOOD CELLS (BEAKER) (test 0 /100 WBC 0-0 ksmm=408) NEUTROPHILS RELATIVE PERCENT (BEAKER) (test 60 % xkzx=319) LYMPHOCYTES RELATIVE PERCENT (BEAKER) (test 17 % tfxt=029) MONOCYTES RELATIVE PERCENT (BEAKER) (test 10 % lhki=906) EOSINOPHILS RELATIVE PERCENT (BEAKER) (test 11 % ogds=965) BASOPHILS RELATIVE PERCENT (BEAKER) (test 1 % hmaf=708) NEUTROPHILS ABSOLUTE COUNT (BEAKER) (test 3.79 K/ L 1.78-5.38 fmhm=886) LYMPHOCYTES ABSOLUTE COUNT (BEAKER) (test 1.08 K/ L 1.32-3.57 jnqj=204) MONOCYTES ABSOLUTE COUNT (BEAKER) (test 0.64 K/ L 0.30-0.82 cldc=986) EOSINOPHILS ABSOLUTE COUNT (BEAKER) (test 0.71 K/ L 0.04-0.54 paxb=284) BASOPHILS ABSOLUTE COUNT (BEAKER) (test 0.05 K/ L 0.01-0.08 nieu=366) IMMATURE GRANULOCYTES-RELATIVE PERCENT (BEAKER) 1 % 0-1 (test nucq=4848) HEMOGLOBIN AND [id number] 04:48:00 Test Item Value Reference Range Comments HEMOGLOBIN (BEAKER) (test mzpi=687) 9.1 GM/DL 13.7-17.5 HEMATOCRIT (BEAKER) (test cpfe=239) 27.7 % 40.1-51.0 POCT-GLUCOSE [id number] 21:33:00 Test Item Value Reference Range Comments POC-GLUCOSE METER (BEAKER) 268 mg/dL 70-110 TESTED AT [facility] [address] [facility] (test vkmv=2908) [facility] [address] POCT-GLUCOSE [id number] 17:36:00 Test Item Value Reference Range Comments POC-GLUCOSE METER (BEAKER) 131 mg/dL 70-110 TESTED AT [place] [id number] [facility] (test bsbn=8009) [facility] [address] HEMOGLOBIN AND [id number] 17:09:00 Test Item Value Reference Range Comments HEMOGLOBIN (BEAKER) (test zitq=050) 9.1 GM/DL 13.7-17.5 HEMATOCRIT (BEAKER) (test deyw=856) 27.0 % 40.1-51.0 POCT-GLUCOSE [id number] 11:29:00 Test Item Value Reference Range Comments POC-GLUCOSE METER (BEAKER) 243 mg/dL 70-110 TESTED AT [address] (test ghdy=1629) [facility] [address] BASIC METABOLIC [id number] 04:05:00 Test Item Value Reference Range Comments SODIUM (BEAKER) (test 136 meq/L 136-145 knwc=052) POTASSIUM (BEAKER) (test 3.8 meq/L 3.5-5.1 ayyu=405) CHLORIDE (BEAKER) (test 107 meq/L 98-107 chds=238) CO2 (BEAKER) (test 24 meq/L 22-29 ozlz=319) BLOOD UREA NITROGEN 11 mg/dL 7-21 (BEAKER) (test epoe=172) CREATININE (BEAKER) (test 0.78 mg/dL 0.57-1.25 edvf=256) GLUCOSE RANDOM (BEAKER) 116 mg/dL 70-105 (test gzgd=537) CALCIUM (BEAKER) (test 7.8 mg/dL 8.4-10.2 zjqb=857) EGFR (BEAKER) (test 96 mL/min/1.73 sq m ESTIMATED GFR IS NOT mvsq=5859) ACCURATE CREATININE CLEARANCE IN PREDICTING GLOMERULAR FILTRATION RATE. ESTIMATED GFR IS NOT APPLICABLE FOR DIALYSIS PATIENTS. [id number] 03:52:00 Test Item Value Reference Range Comments PHOSPHORUS (BEAKER) (test hork=851) 3.5 mg/dL 2.3-4.7 [id number] 03:52:00 Test Item Value Reference Range Comments MAGNESIUM (BEAKER) (test gjzb=042) 1.6 mg/dL 1.6-2.6 CBC W/PLT COUNT & AUTO [id number] 03:42:00 Test Item Value Reference Range Comments WHITE BLOOD CELL COUNT (BEAKER) (test uevx=357) 6.7 K/ L 3.5-10.5 RED BLOOD CELL COUNT (BEAKER) (test zoup=569) 2.91 M/ L 4.63-6.08 HEMOGLOBIN (BEAKER) (test dcoi=826) 8.7 GM/DL 13.7-17.5 HEMATOCRIT (BEAKER) (test mjgr=451) 25.8 % 40.1-51.0 MEAN CORPUSCULAR VOLUME (BEAKER) (test clgj=459) 88.7 fL 79.0-92.2 MEAN CORPUSCULAR HEMOGLOBIN (BEAKER) (test 29.9 pg 25.7-32.2 jmez=774) MEAN CORPUSCULAR HEMOGLOBIN CONC (BEAKER) (test 33.7 GM/DL 32.3-36.5 gyju=133) RED CELL DISTRIBUTION WIDTH (BEAKER) (test 15.9 % 11.6-14.4 bwqm=945) PLATELET COUNT (BEAKER) (test qces=891) 120 K/CU MM 150-450 MEAN PLATELET VOLUME (BEAKER) (test amqb=656) 10.0 fL 9.4-12.4 NUCLEATED RED BLOOD CELLS (BEAKER) (test 0 /100 WBC 0-0 bmga=822) NEUTROPHILS RELATIVE PERCENT (BEAKER) (test 66 % vfsh=254) LYMPHOCYTES RELATIVE PERCENT (BEAKER) (test 15 % bkas=548) MONOCYTES RELATIVE PERCENT (BEAKER) (test 9 % mpkv=257) EOSINOPHILS RELATIVE PERCENT (BEAKER) (test 10 % nxpm=670) BASOPHILS RELATIVE PERCENT (BEAKER) (test 0 % djnv=924) NEUTROPHILS ABSOLUTE COUNT (BEAKER) (test 4.39 K/ L 1.78-5.38 lrio=035) LYMPHOCYTES ABSOLUTE COUNT (BEAKER) (test 1.03 K/ L 1.32-3.57 ixns=052) MONOCYTES ABSOLUTE COUNT (BEAKER) (test 0.57 K/ L 0.30-0.82 hspx=615) EOSINOPHILS ABSOLUTE COUNT (BEAKER) (test 0.64 K/ L 0.04-0.54 kbqo=121) BASOPHILS ABSOLUTE COUNT (BEAKER) (test 0.03 K/ L 0.01-0.08 cipo=890) IMMATURE GRANULOCYTES-RELATIVE PERCENT (BEAKER) 1 % 0-1 (test dnpd=2728) POCT-GLUCOSE [id number] 23:56:00 Test Item Value Reference Range Comments POC-GLUCOSE METER (BEAKER) 149 mg/dL 70-110 TESTED AT [address] (test qakx=6186) [place] [address] HEMOGLOBIN AND [id number] 23:48:00 Test Item Value Reference Range Comments HEMOGLOBIN (BEAKER) (test vpqc=416) 8.3 GM/DL 13.7-17.5 HEMATOCRIT (BEAKER) (test lteu=622) 24.7 % 40.1-51.0 POCT-GLUCOSE [id number] 18:37:00 Test Item Value Reference Range Comments POC-GLUCOSE METER (BEAKER) 149 mg/dL 70-110 TESTED AT [address] (test gspw=5206) [place] [address] HEMOGLOBIN AND [id number] 14:27:00 Test Item Value Reference Range Comments HEMOGLOBIN (BEAKER) (test cuiv=976) 9.0 GM/DL 13.7-17.5 HEMATOCRIT (BEAKER) (test pgix=591) 27.0 % 40.1-51.0 POCT-GLUCOSE [id number] 12:21:00 Test Item Value Reference Range Comments POC-GLUCOSE METER (BEAKER) 122 mg/dL 70-110 TESTED AT [address] (test usuz=5365) [place] [address] BASIC METABOLIC [id number] 04:49:00 Test Item Value Reference Range Comments SODIUM (BEAKER) (test 136 meq/L 136-145 yqif=802) POTASSIUM (BEAKER) (test 3.7 meq/L 3.5-5.1 kffv=423) CHLORIDE (BEAKER) (test 109 meq/L 98-107 hlsx=117) CO2 (BEAKER) (test 21 meq/L 22-29 mzxr=778) BLOOD UREA NITROGEN 14 mg/dL 7-21 (BEAKER) (test hegf=050) CREATININE (BEAKER) (test 0.77 mg/dL 0.57-1.25 occt=159) GLUCOSE RANDOM (BEAKER) 134 mg/dL 70-105 (test bjiu=597) CALCIUM (BEAKER) (test 7.6 mg/dL 8.4-10.2 tzhg=570) EGFR (BEAKER) (test 97 mL/min/1.73 sq m ESTIMATED GFR IS NOT dwcn=7391) ACCURATE CREATININE CLEARANCE IN PREDICTING GLOMERULAR FILTRATION RATE. ESTIMATED GFR IS NOT APPLICABLE FOR DIALYSIS PATIENTS. [id number] 04:43:00 Test Item Value Reference Range Comments MAGNESIUM (BEAKER) (test netw=099) 1.5 mg/dL 1.6-2.6 [id number] 04:43:00 Test Item Value Reference Range Comments PHOSPHORUS (BEAKER) (test ppvn=728) 3.4 mg/dL 2.3-4.7 CBC W/PLT COUNT & AUTO [id number] 04:16:00 Test Item Value Reference Range Comments WHITE BLOOD CELL COUNT 5.2 K/ L 3.5-10.5 (BEAKER) (test qqth=847) RED BLOOD CELL COUNT (BEAKER) 2.25 M/ L 4.63-6.08 (test odnn=240) HEMOGLOBIN (BEAKER) (test 6.7 GM/DL 13.7-17.5 raob=506) HEMATOCRIT (BEAKER) (test 20.9 % 40.1-51.0 hdnm=484) MEAN CORPUSCULAR VOLUME 92.9 fL 79.0-92.2 Discordant MCV results (BEAKER) (test dydj=471) compared to previous results; clinical correlation required. MEAN CORPUSCULAR HEMOGLOBIN 29.8 pg 25.7-32.2 (BEAKER) (test geqq=615) MEAN CORPUSCULAR HEMOGLOBIN 32.1 GM/DL 32.3-36.5 CONC (BEAKER) (test ylyb=186) RED CELL DISTRIBUTION WIDTH 16.0 % 11.6-14.4 (BEAKER) (test kura=704) PLATELET COUNT (BEAKER) (test 92 K/CU MM 150-450 alai=411) MEAN PLATELET VOLUME (BEAKER) 10.9 fL 9.4-12.4 (test ukmh=355) NUCLEATED RED BLOOD CELLS 0 /100 WBC 0-0 (BEAKER) (test qcaf=667) NEUTROPHILS RELATIVE PERCENT 66 % (BEAKER) (test cvbk=771) LYMPHOCYTES RELATIVE PERCENT 16 % (BEAKER) (test bgea=099) MONOCYTES RELATIVE PERCENT 7 % (BEAKER) (test tgro=001) EOSINOPHILS RELATIVE PERCENT 9 % (BEAKER) (test mrqg=821) BASOPHILS RELATIVE PERCENT 0 % (BEAKER) (test iyeq=637) NEUTROPHILS ABSOLUTE COUNT 3.45 K/ L 1.78-5.38 (BEAKER) (test lujv=732) LYMPHOCYTES ABSOLUTE COUNT 0.85 K/ L 1.32-3.57 (BEAKER) (test tejx=869) MONOCYTES ABSOLUTE COUNT 0.38 K/ L 0.30-0.82 (BEAKER) (test vkmq=021) EOSINOPHILS ABSOLUTE COUNT 0.47 K/ L 0.04-0.54 (BEAKER) (test saht=684) BASOPHILS ABSOLUTE COUNT 0.02 K/ L 0.01-0.08 (BEAKER) (test rrsf=233) IMMATURE GRANULOCYTES-RELATIVE 1 % 0-1 PERCENT (BEAKER) (test qylb=3504) HEMOGLOBIN AND [id number] 23:11:00 Test Item Value Reference Range Comments HEMOGLOBIN (BEAKER) (test ewht=871) 7.4 GM/DL 13.7-17.5 HEMATOCRIT (BEAKER) (test ujzi=214) 22.0 % 40.1-51.0 POCT-GLUCOSE [id number] 22:00:00 Test Item Value Reference Range Comments POC-GLUCOSE METER (BEAKER) 163 mg/dL 70-110 TESTED AT [address] (test iqpk=6781) [place] [address] POCT-GLUCOSE [id number] 17:19:00 Test Item Value Reference Range Comments POC-GLUCOSE METER (BEAKER) 151 mg/dL 70-110 TESTED AT [address] (test jqbr=7801) [place] [address] HEMOGLOBIN AND [id number] 16:24:00 Test Item Value Reference Range Comments HEMOGLOBIN (BEAKER) (test mnim=394) 8.4 GM/DL 13.7-17.5 HEMATOCRIT (BEAKER) (test izcn=249) 25.2 % 40.1-51.0 POCT-GLUCOSE [id number] 09:30:00 Test Item Value Reference Range Comments POC-GLUCOSE METER (BEAKER) 96 mg/dL 70-110 TESTED AT [address] (test kkxk=2205) [place] [address] CBC W/PLT COUNT & AUTO [id number] 09:10:00 Test Item Value Reference Range Comments WHITE BLOOD CELL COUNT (BEAKER) (test kvbr=628) 7.4 K/ L 3.5-10.5 RED BLOOD CELL COUNT (BEAKER) (test ijbt=509) 2.36 M/ L 4.63-6.08 HEMOGLOBIN (BEAKER) (test xljd=097) 6.8 GM/DL 13.7-17.5 HEMATOCRIT (BEAKER) (test zjez=882) 20.9 % 40.1-51.0 MEAN CORPUSCULAR VOLUME (BEAKER) (test rcug=401) 88.6 fL 79.0-92.2 MEAN CORPUSCULAR HEMOGLOBIN (BEAKER) (test 28.8 pg 25.7-32.2 bhdr=219) MEAN CORPUSCULAR HEMOGLOBIN CONC (BEAKER) (test 32.5 GM/DL 32.3-36.5 iyvu=390) RED CELL DISTRIBUTION WIDTH (BEAKER) (test 16.3 % 11.6-14.4 eoqc=747) PLATELET COUNT (BEAKER) (test krim=747) 128 K/CU MM 150-450 MEAN PLATELET VOLUME (BEAKER) (test vrxa=138) 9.5 fL 9.4-12.4 NUCLEATED RED BLOOD CELLS (BEAKER) (test 0 /100 WBC 0-0 lezr=893) NEUTROPHILS RELATIVE PERCENT (BEAKER) (test 72 % lqjo=184) LYMPHOCYTES RELATIVE PERCENT (BEAKER) (test 11 % jxid=780) MONOCYTES RELATIVE PERCENT (BEAKER) (test 6 % nxdt=883) EOSINOPHILS RELATIVE PERCENT (BEAKER) (test 10 % jxbk=595) BASOPHILS RELATIVE PERCENT (BEAKER) (test 0 % bwmq=233) NEUTROPHILS ABSOLUTE COUNT (BEAKER) (test 5.32 K/ L 1.78-5.38 oxem=598) LYMPHOCYTES ABSOLUTE COUNT (BEAKER) (test 0.80 K/ L 1.32-3.57 yirk=214) MONOCYTES ABSOLUTE COUNT (BEAKER) (test 0.47 K/ L 0.30-0.82 gqeo=188) EOSINOPHILS ABSOLUTE COUNT (BEAKER) (test 0.74 K/ L 0.04-0.54 hrzw=953) BASOPHILS ABSOLUTE COUNT (BEAKER) (test 0.03 K/ L 0.01-0.08 ukgg=850) IMMATURE GRANULOCYTES-RELATIVE PERCENT (BEAKER) 1 % 0-1 (test xwjs=8221) BASIC METABOLIC [id number] 07:12:00 Test Item Value Reference Range Comments SODIUM (BEAKER) (test 136 meq/L 136-145 pshg=618) POTASSIUM (BEAKER) (test 3.7 meq/L 3.5-5.1 Specimen slightly bdsx=667) hemolyzed CHLORIDE (BEAKER) (test 107 meq/L 98-107 usll=119) CO2 (BEAKER) (test 22 meq/L 22-29 xssj=290) BLOOD UREA NITROGEN 13 mg/dL 7-21 (BEAKER) (test culo=973) CREATININE (BEAKER) (test 0.73 mg/dL 0.57-1.25 Specimen slightly lchq=399) hemolyzed GLUCOSE RANDOM (BEAKER) 87 mg/dL 70-105 (test iepj=508) CALCIUM (BEAKER) (test 7.5 mg/dL 8.4-10.2 yzsg=691) EGFR (BEAKER) (test 103 mL/min/1.73 sq m ESTIMATED GFR IS NOT eggr=9425) ACCURATE CREATININE CLEARANCE IN PREDICTING GLOMERULAR FILTRATION RATE. ESTIMATED GFR IS NOT APPLICABLE FOR DIALYSIS PATIENTS. [id number] 07:10:00 Test Item Value Reference Range Comments MAGNESIUM (BEAKER) (test 1.7 mg/dL 1.6-2.6 Specimen slightly hemolyzed kaht=687) [id number] 07:10:00 Test Item Value Reference Range Comments PHOSPHORUS (BEAKER) (test 2.0 mg/dL 2.3-4.7 Specimen slightly hemolyzed ogdy=927) [id number] 06:24:00 Test Item Value Reference Range Comments PROTIME (BEAKER) (test ygpl=545) 15.4 seconds 11.7-14.7 INR (BEAKER) (test dwnk=414) 1.2 <=5.9 PARTIAL THROMBOPLASTIN TIME (BEAKER) (test 28.3 seconds 22.5-36.0 lmgn=338) RECOMMENDED COUMADIN/WARFARIN INR THERAPY RANGESSTANDARD DOSE: 2.0 - 3.0 Includes: PROPHYLAXIS forvenous thrombosis, systemic embolization; TREATMENT for venous thrombosis and/or pulmonary embolus.HIGH RISK: Target INR is 2.5-3.5 for patients with mechanical heart valves.PROTHROMBIN [id number] 06:23: 00 Test Item Value Reference Range Comments PROTIME (BEAKER) (test ylkl=319) 15.4 seconds 11.7-14.7 INR (BEAKER) (test mgvy=554) 1.2 <=5.9 RECOMMENDED COUMADIN/WARFARIN INR THERAPY RANGESSTANDARD DOSE: 2.0 - 3.0 Includes: PROPHYLAXIS forvenous thrombosis, systemic embolization; TREATMENT for venous thrombosis and/or pulmonary embolus.HIGH RISK: Target INR is 2.5-3.5 for patients with mechanical heart valves.HEMOGLOBIN AND [id number] 23 :40:00 Test Item Value Reference Range Comments HEMOGLOBIN (BEAKER) (test dacv=675) 7.3 GM/DL 13.7-17.5 HEMATOCRIT (BEAKER) (test scve=393) 21.7 % 40.1-51.0 POCT-GLUCOSE [id number] 23:37:00 Test Item Value Reference Range Comments POC-GLUCOSE METER (BEAKER) 114 mg/dL 70-110 TESTED AT [address] (test jeai=9432) [facility] [address] HEMOGLOBIN AND [id number] 17:46:00 Test Item Value Reference Range Comments HEMOGLOBIN (BEAKER) (test fivc=196) 7.2 GM/DL 13.7-17.5 HEMATOCRIT (BEAKER) (test tdrt=426) 22.0 % 40.1-51.0 POCT-GLUCOSE [id number] 17:29:00 Test Item Value Reference Range Comments POC-GLUCOSE METER (BEAKER) 146 mg/dL 70-110 TESTED AT [place] [id number] [facility] (test qgfz=0496) [facility] [address] PROTHROMBIN [id number] 12:38:00 Test Item Value Reference Range Comments PROTIME (BEAKER) (test ogri=835) 17.0 seconds 11.7-14.7 INR (BEAKER) (test omal=990) 1.4 <=5.9 RECOMMENDED COUMADIN/WARFARIN INR THERAPY RANGESSTANDARD DOSE: 2.0 - 3.0 Includes: PROPHYLAXIS forvenous thrombosis, systemic embolization; TREATMENT for venous thrombosis and/or pulmonary embolus.HIGH RISK: Target INR is 2.5-3.5 for patients with mechanical heart valves.[id number] 12:38:00 Test Item Value Reference Range Comments PROTIME (BEAKER) (test yzgx=596) 17.0 seconds 11.7-14.7 INR (BEAKER) (test ucxt=793) 1.4 <=5.9 PARTIAL THROMBOPLASTIN TIME (BEAKER) (test 31.4 seconds 22.5-36.0 zhyu=822) RECOMMENDED COUMADIN/WARFARIN INR THERAPY RANGESSTANDARD DOSE: 2.0 - 3.0 Includes: PROPHYLAXIS forvenous thrombosis, systemic embolization; TREATMENT for venous thrombosis and/or pulmonary embolus.HIGH RISK: Target INR is 2.5-3.5 for patients with mechanical heart valves.HEMOGLOBIN AND [id number] 12 :21:00 Test Item Value Reference Range Comments HEMOGLOBIN (BEAKER) (test bikj=169) 7.1 GM/DL 13.7-17.5 HEMATOCRIT (BEAKER) (test xakl=445) 21.7 % 40.1-51.0 POCT-GLUCOSE [id number] 12:01:00 Test Item Value Reference Range Comments POC-GLUCOSE METER (BEAKER) 147 mg/dL 70-110 TESTED AT [facility] [address] [place] [address] (test rptc=8285) [facility] [address] [id number] 09:30:00 Test Item Value Reference Range Comments PHOSPHORUS (BEAKER) (test khuc=689) 2.3 mg/dL 2.3-4.7 [id number] 09:30:00 Test Item Value Reference Range Comments MAGNESIUM (BEAKER) (test lutw=057) 1.8 mg/dL 1.6-2.6 BASIC METABOLIC [id number] 09:30:00 Test Item Value Reference Range Comments SODIUM (BEAKER) (test 140 meq/L 136-145 tfor=462) POTASSIUM (BEAKER) (test 4.0 meq/L 3.5-5.1 nvrd=987) CHLORIDE (BEAKER) (test 112 meq/L 98-107 xrxw=648) CO2 (BEAKER) (test 25 meq/L 22-29 jobw=043) BLOOD UREA NITROGEN 20 mg/dL 7-21 (BEAKER) (test vucd=076) CREATININE (BEAKER) (test 0.82 mg/dL 0.57-1.25 grsc=560) GLUCOSE RANDOM (BEAKER) 126 mg/dL 70-105 (test rmte=203) CALCIUM (BEAKER) (test 7.4 mg/dL 8.4-10.2 rqks=911) EGFR (BEAKER) (test 90 mL/min/1.73 sq m ESTIMATED GFR IS NOT gjmh=0232) ACCURATE CREATININE CLEARANCE IN PREDICTING GLOMERULAR FILTRATION RATE. ESTIMATED GFR IS NOT APPLICABLE FOR DIALYSIS PATIENTS. CBC W/PLT COUNT & AUTO [id number] 08:40:00 Test Item Value Reference Range Comments WHITE BLOOD CELL COUNT (BEAKER) (test gwah=837) 9.3 K/ L 3.5-10.5 RED BLOOD CELL COUNT (BEAKER) (test zokk=557) 2.56 M/ L 4.63-6.08 HEMOGLOBIN (BEAKER) (test msxi=065) 7.4 GM/DL 13.7-17.5 HEMATOCRIT (BEAKER) (test nhdg=895) 23.1 % 40.1-51.0 MEAN CORPUSCULAR VOLUME (BEAKER) (test fzau=502) 90.2 fL 79.0-92.2 MEAN CORPUSCULAR HEMOGLOBIN (BEAKER) (test 28.9 pg 25.7-32.2 wycj=129) MEAN CORPUSCULAR HEMOGLOBIN CONC (BEAKER) (test 32.0 GM/DL 32.3-36.5 dbxm=259) RED CELL DISTRIBUTION WIDTH (BEAKER) (test 16.4 % 11.6-14.4 fjkt=837) PLATELET COUNT (BEAKER) (test uudi=247) 144 K/CU MM 150-450 MEAN PLATELET VOLUME (BEAKER) (test ourx=653) 10.2 fL 9.4-12.4 NUCLEATED RED BLOOD CELLS (BEAKER) (test 0 /100 WBC 0-0 vowm=525) NEUTROPHILS RELATIVE PERCENT (BEAKER) (test 73 % uupp=948) LYMPHOCYTES RELATIVE PERCENT (BEAKER) (test 9 % kwmx=855) MONOCYTES RELATIVE PERCENT (BEAKER) (test 8 % lkdm=915) EOSINOPHILS RELATIVE PERCENT (BEAKER) (test 8 % jwrb=791) BASOPHILS RELATIVE PERCENT (BEAKER) (test 1 % wtln=236) NEUTROPHILS ABSOLUTE COUNT (BEAKER) (test 6.84 K/ L 1.78-5.38 gjsm=736) LYMPHOCYTES ABSOLUTE COUNT (BEAKER) (test 0.84 K/ L 1.32-3.57 omjy=220) MONOCYTES ABSOLUTE COUNT (BEAKER) (test 0.70 K/ L 0.30-0.82 dqpw=253) EOSINOPHILS ABSOLUTE COUNT (BEAKER) (test 0.78 K/ L 0.04-0.54 mnmt=235) BASOPHILS ABSOLUTE COUNT (BEAKER) (test 0.08 K/ L 0.01-0.08 uglb=189) IMMATURE GRANULOCYTES-RELATIVE PERCENT (BEAKER) 1 % 0-1 (test knuc=3530) POCT-GLUCOSE [id number] 07:17:00 Test Item Value Reference Range Comments POC-GLUCOSE METER (BEAKER) 151 mg/dL 70-110 TESTED AT [address] (test owdi=9630) [facility] [id number] POCT-GLUCOSE [id number] 02:45:00 Test Item Value Reference Range Comments POC-GLUCOSE METER (BEAKER) 164 mg/dL 70-110 TESTED AT [address] (test qtfu=8308) [facility] [address] HEMOGLOBIN AND [id number] 01:50:00 Test Item Value Reference Range Comments HEMOGLOBIN (BEAKER) (test exwm=693) 6.3 GM/DL 13.7-17.5 HEMATOCRIT (BEAKER) (test qzwi=088) 19.7 % 40.1-51.0 HEMOGLOBIN AND [id number] 20:50:00 Test Item Value Reference Range Comments HEMOGLOBIN (BEAKER) (test jzza=356) 7.1 GM/DL 13.7-17.5 HEMATOCRIT (BEAKER) (test hflt=152) 22.0 % 40.1-51.0 [id number] 19:35:00 Test Item Value Reference Range Comments PROCALCITONIN (BEAKER) (test sgah=9316) < ng/mL <0.05 SEPSIS RISK (ng/mL)Low: 0.05-0.50Intermediate: 0.51-2.00High: & gt;=2.01LACTIC ACID, VENOUS, WHOLE [id number] 17:58:00 Test Item Value Reference Range Comments LACTATE BLOOD VENOUS (2) (BEAKER) (test 1.1 mmol/L 0.5-2.2 rnwr=8658) Effective 06/19/2015: Units/Reference Range ChangeNew: 0.5-2.2 mmol/L Previous: 5 -20 mg/dLRAD, CHEST, 1 VIEW, NON [id number] 17:31:00Reason for exam:-> SOBShould this be performed [...] Bettye Dialloeport Verified Date/Time: 04/15/201717:31:41 Reading Location: [facility] Radiology Reading Room BASI METABOLIC [id number] 17:17:00 Test Item Value Reference Range Comments SODIUM (BEAKER) (test 141 meq/L 136-145 rmzm=119) POTASSIUM (BEAKER) (test 4.0 meq/L 3.5-5.1 kljx=739) CHLORIDE (BEAKER) (test 112 meq/L 98-107 tqpz=085) CO2 (BEAKER) (test 23 meq/L 22-29 iezn=713) BLOOD UREA NITROGEN 25 mg/dL 7-21 (BEAKER) (test kjga=987) CREATININE (BEAKER) (test 0.81 mg/dL 0.57-1.25 nnbz=136) GLUCOSE RANDOM (BEAKER) 134 mg/dL 70-105 (test dkqc=760) CALCIUM (BEAKER) (test 7.4 mg/dL 8.4-10.2 rdkr=225) EGFR (BEAKER) (test 91 mL/min/1.73 sq m ESTIMATED GFR IS NOT xfhe=1343) ACCURATE CREATININE CLEARANCE IN PREDICTING GLOMERULAR FILTRATION RATE. ESTIMATED GFR IS NOT APPLICABLE FOR DIALYSIS PATIENTS. [id number] 17:04:00 Test Item Value Reference Range Comments PHOSPHORUS (BEAKER) (test bxkp=718) 2.4 mg/dL 2.3-4.7 [id number] 17:04:00 Test Item Value Reference Range Comments MAGNESIUM (BEAKER) (test ivxt=263) 1.8 mg/dL 1.6-2.6 HEPATIC FUNCTION [id number] 17:04:00 Test Item Value Reference Range Comments TOTAL PROTEIN (BEAKER) (test dhkp=676) 4.5 gm/dL 6.0-8.3 ALBUMIN (BEAKER) (test oinw=1360) 2.8 g/dL 3.5-5.0 BILIRUBIN TOTAL (BEAKER) (test xoqv=240) 0.7 mg/dL 0.2-1.2 BILIRUBIN DIRECT (BEAKER) (test nkpt=996) 0.3 mg/dL 0.1-0.5 ALKALINE PHOSPHATASE (BEAKER) (test jokz=899) 34 U/L 40-150 AST (SGOT) (BEAKER) (test xckx=562) 16 U/L 5-34 ALT (SGPT) (BEAKER) (test gdzp=180) 11 U/L 6-55 PROTHROMBIN [id number] 16:47:00 Test Item Value Reference Range Comments PROTIME (BEAKER) (test bsmd=889) 16.8 seconds 11.7-14.7 INR (BEAKER) (test gbzl=116) 1.4 <=5.9 RECOMMENDED COUMADIN/WARFARIN INR THERAPY RANGESSTANDARD DOSE: 2.0 - 3.0 Includes: PROPHYLAXIS forvenous thrombosis, systemic embolization; TREATMENT for venous thrombosis and/or pulmonary embolus.HIGH RISK: Target INR is 2.5-3.5 for patients with mechanical heart valves.CBC W/PLT COUNT & AUTO [id number] 16:41:00 Test Item Value Reference Range Comments WHITE BLOOD CELL COUNT (BEAKER) (test qpwi=335) 10.3 K/ L 3.5-10.5 RED BLOOD CELL COUNT (BEAKER) (test tpip=613) 2.70 M/ L 4.63-6.08 HEMOGLOBIN (BEAKER) (test uaxw=092) 7.4 GM/DL 13.7-17.5 HEMATOCRIT (BEAKER) (test ects=539) 23.2 % 40.1-51.0 MEAN CORPUSCULAR VOLUME (BEAKER) (test tykl=247) 85.9 fL 79.0-92.2 MEAN CORPUSCULAR HEMOGLOBIN (BEAKER) (test 27.4 pg 25.7-32.2 radc=884) MEAN CORPUSCULAR HEMOGLOBIN CONC (BEAKER) (test 31.9 GM/DL 32.3-36.5 zyfy=065) RED CELL DISTRIBUTION WIDTH (BEAKER) (test 15.9 % 11.6-14.4 vnik=641) PLATELET COUNT (BEAKER) (test cteg=815) 155 K/CU MM 150-450 MEAN PLATELET VOLUME (BEAKER) (test lzwb=497) 10.1 fL 9.4-12.4 NUCLEATED RED BLOOD CELLS (BEAKER) (test 0 /100 WBC 0-0 lstp=944) NEUTROPHILS RELATIVE PERCENT (BEAKER) (test 77 % pakf=007) LYMPHOCYTES RELATIVE PERCENT (BEAKER) (test 10 % jfuw=490) MONOCYTES RELATIVE PERCENT (BEAKER) (test 7 % qqmt=223) EOSINOPHILS RELATIVE PERCENT (BEAKER) (test 4 % wbmq=372) BASOPHILS RELATIVE PERCENT (BEAKER) (test 1 % swqx=670) NEUTROPHILS ABSOLUTE COUNT (BEAKER) (test 8.00 K/ L 1.78-5.38 jesa=613) LYMPHOCYTES ABSOLUTE COUNT (BEAKER) (test 1.01 K/ L 1.32-3.57 thlv=883) MONOCYTES ABSOLUTE COUNT (BEAKER) (test 0.73 K/ L 0.30-0.82 udsv=355) EOSINOPHILS ABSOLUTE COUNT (BEAKER) (test 0.45 K/ L 0.04-0.54 tqgq=025) BASOPHILS ABSOLUTE COUNT (BEAKER) (test 0.07 K/ L 0.01-0.08 cgte=799) IMMATURE GRANULOCYTES-RELATIVE PERCENT (BEAKER) 1 % 0-1 (test wanu=0800) HEMOGLOBIN AND [id number] 16:40:00 Test Item Value Reference Range Comments HEMOGLOBIN (BEAKER) (test nyjd=258) 7.4 GM/DL 13.7-17.5 HEMATOCRIT (BEAKER) (test xndd=997) 23.2 % 40.1-51.0
[2017-11-16] MEDS ORDERED: NA CHLORIDE 0.9% 1,000 ML ONE (11:20)
[2017-11-16] MEDS ORDERED: CIPROFLOXACIN 400mg IV 400 MG/200 ML BAG IV ONE (11:20)
[2017-11-16] MEDS ORDERED: METRONIDAZOLE 500mg IVPB 500 MG/100 ML BAG IV ONE (11:20)
[2017-11-16 11:21] LABS: Absolute Lymphocytes (CBC) 0.4 K/uL (0.7-4.9); Absolute Monocytes 0.2 K/uL (0.1-1.3); Absolute Neutrophil 10.5 K/uL (1.8-8.0); Basophils % 0.7 % (0-1.3); Hematocrit 25.5 % (39.6-49.0); Lymphocytes % 3.9 % (15.3-44.8); MCH 25.3 pg (27.0-35.0); MPV 7.9 fL (7.6-11.3); Monocytes % 1.8 % (3.3-12.3); RBC Red Blood Cell Count 3.19 M/uL (4.33-5.43)
[2017-11-16 11:27] LABS: Protime INR 1.13
[2017-11-16 11:45] LABS: ALT/SGPT 16 U/L (12-78); AST/SGOT 14 U/L (15-37); Albumin 3.3 g/dL (3.4-5.0); Alkaline Phosphatase 55 U/L (45-117); BUN Blood Urea Nitrogen 27 mg/dL (7-18); Bicarbonate 23 mmol/L (21-32); Bilirubin Direct 0.2 mg/dL (0-0.2); Bilirubin Total 0.5 mg/dL (0.2-1.0); Blood Morphology Comment NOT SEEN (NOT SEEN); Glucose Level 172 mg/dL (74-106); Lipase 222 U/L (73-393); Magnesium 1.9 mg/dL (1.8-2.4); NT PRO-BNP 354 pg/mL (<450); Platelet Estimate ADEQ; Protein, Total 6.8 g/dL (6.4-8.2); Sodium Level 139 mmol/L (136-145); Troponin (Emerg Dept Use Only) < 0.02 ng/mL (0.0-0.045); Urine White Blood Cell Casts OK
--- NOTE | 2017-11-16 12:16 | RAD REPORT ---
EXAM DESCRIPTION: RAD - Chest Single View - 11/16/2017 11:42 am CLINICAL HISTORY: COUGH Chest pain. COMPARISON: Chest Single View dated 04/14/2017; Chest Single View dated 08/29/2015; CHEST SINGLE VIEW dated 03/02/2014; CHEST SINGLE VIEW dated 12/06/2012 FINDINGS: Portable technique limits examination quality. Emphysematous changes are present throughout the lungs. Changes of a prior CABG are noted with sterno ben wires. No displaced fractures.Hardware is present cervical spine. IMPRESSION: Prominent COPD.
--- NOTE | 2017-11-16 12:49 | ER ---
Nurse's Notes [facility] Name: Mike Peña Age: 82 yrs Sex: Male : 1935 Arrival Date: 11/16/2017 Time: 10:[address] Private MD: Sang Kaiser E Diagnosis: Gastrointestinal hemorrhage, unspecified-lower;Diverticular disease of intestine;Abdominal tenderness;Anemia, unspecified;Type 2 diabetes mellitus Presentation: 11/16 10:54 Presenting complaint: Patient states: He woke up at 0200 this morning and he noticed aj1 blood in his stool. Reports a history of diverticulitis. Reports dizziness. He has felt like he was going to pass out. Transition of care: patient was not received from another setting of care. Onset of symptoms was November 16, 2017 at 02:00. Risk Assessment: Do you want to hurt yourself or someone else? Patient reports no desire to harm self or others. Initial Sepsis Screen: Does the patient meet any 2 criteria? Systolic BP < 90 mmHg. HR > 90 bpm. Does the patient have a suspected source of infection? No. Patient's initial sepsis screen is negative. Care prior to arrival: None. 10:54 Method Of Arrival: Wheelchair aj1 10:54 Acuity: BEKAH 2 aj1 Historical: - Allergies: 11: No Known Drug Allergies; tw2 - Home Meds: 11:02 Aspirin Childrens 81 mg Oral chew [Active]; atorvastatin 40 mg Oral tab 1 tab once tw2 daily [Active]; duloxetine 60 mg Oral cpDR 1 cap nightly [Active]; Janumet 50-500 mg Oral tab 1 tab 2 times per day [Active]; levothyroxine 100 mcg tab 1 tab once daily [Active]; Lyrica 75 mg Oral 1 cap four times a day [Active]; magnesium oxide 400 mg Oral tab twice a day [Active]; midodrine 10 mg Oral tab 1 tab 3 times per day [Active]; omeprazole 40 mg Oral cpDR 1 cap once daily [Active]; tamsulosin 0.4 mg Oral cp24 1 cap once daily [Active]; valacyclovir 500 mg Oral tab 1 tab once daily [Active]; Veramyst 27.5 mcg/actuation nasal spsn 1 sprays once daily [Active]; - PMHx: 11:02 Cancer; carcinoma; Diverticulitis; Diabetes - NIDDM; tw2 - PSHx: 11:02 CABG; Cholecystectomy; Disc surgery; Hernia repair; tw2 - Immunization history:: Adult Immunizations. - Social history:: Smoking status: . - Ebola Screening: : Patient denies travel to an Ebola-affected area in the 21 days before illness onset. Screenin:18 Abuse screen: Denies threats or abuse. Denies injuries from another. Nutritional bp screening: No deficits noted. Tuberculosis screening: No symptoms or risk factors identified. Fall Risk None identified. Assessment: 11:00 General: Appears in no apparent distress. comfortable, slender, Behavior is calm, bp cooperative, appropriate for age. Pain: Denies pain. Neuro: Level of Consciousness is awake, alert, obeys commands, Oriented to person, place, time, situation, Appropriate for age. Cardiovascular: No deficits noted. Rhythm is sinus rhythm. Respiratory: Airway is patent Respiratory effort is even, unlabored, Respiratory pattern is regular, symmetrical. GI: Reports rectal bleeding. : No signs and/or symptoms were reported regarding the genitourinary system. EENT: No deficits noted. Derm: Skin is pale. Musculoskeletal: Circulation, motion, and sensation intact. Range of motion: intact in all extremities. 11:25 Reassessment: PO CONTRAST COMPLETED, CT NOTIFIED. bp 12:27 Reassessment: CT PENDING, IVF AND ABX INFUSING, VS STABLE ON MONITOR. bp 13:11 Reassessment: TRANSFER IN PROCESS. TRANSFUSION ON HOLD FOR CROSSMATCH. bp 13:55 Reassessment: REPORT TO [facility] AT [facility]. TRANSPORT PENDING. bp 14:21 Reassessment: Patient appears in no apparent distress at this time. No changes from tw2 previously documented assessment. Patient and/or family updated on plan of care and expected duration. Pain level reassessed. 14:37 Reassessment: EMS AT B/S FOR TRANSPORT. bp Vital Signs: 10:54 BP 77 / 54; Pulse 96; Resp 20; Temp 97.6; Pulse Ox 96% on R/A; Weight 79.38 kg (R); aj1 Height 6 ft. 1 in. (185.42 cm) (R); Pain 0/10; 11:04 BP 116 / 61; Pulse 93; Resp 12; Pulse Ox 99% on R/A; tw2 12:17 BP 107 / 62; Pulse 81; Resp 14; Pulse Ox 98% on R/A; tw2 12:26 BP 132 / 72; Pulse 89; Resp 19; Pulse Ox 99% ; bp 13:11 BP 138 / 71; Pulse 92; Resp 14; Pulse Ox 98% ; bp 14:21 BP 136 / 70; Pulse 83; Resp 16; Pulse Ox 98% on R/A; tw2 10:54 Body Mass Index 23.09 (79.38 kg, 185.42 cm) aj1 ED Course: 10:28 Patient arrived in ED. rg4 10:28 Sang Kaiser MD is Private Physician. rg4 10:54 Arm band placed on Patient placed in an exam room. aj1 10:56 Triage completed. aj1 10:56 Jairo Willingham, BIMAL is Primary Nurse. bp 10:57 Gary Ruano MD is Attending Physician. wolfgang 10:59 Placed in gown. Bed in low position. forensic psychiatrist on. Pulse ox on. NIBP on. tw2 11:12 Initial lab(s) drawn, by ar, sent to lab. T\T\S collected, blood band applied to patient. em1 Inserted saline lock: 18 gauge in right antecubital area, using aseptic technique. Blood collected. 11:26 EKG done, by classroom technology coach. reviewed by Gary Ruano MD. dt2 11:41 X-ray completed. Portable x-ray completed in exam room. Patient tolerated procedure ml well. 11:41 XRAY Chest (1 view) In Process Unspecified. EDMS 12:09 Inserted saline lock: 22 gauge in right hand, using aseptic technique. bp 13:[address] via stretcher. jg6 13:58 CT completed. Patient tolerated procedure well. Patient moved back from CT. jg6 13:59 CT Abd/Pelvis - W/Contrast In Process Unspecified. EDMS 14:40 No provider procedures requiring assistance completed. Patient transferred, IV remains bp in place. Administered Medications: 11:19 Drug: Flagyl 500 mg Volume: 100 ml; Route: IVPB; Rate: 200 ml/hr; Infused Over: 30 tw2 mins; Site: right antecubital; 11:20 Drug: NS 0.9% 1000 ml Route: IV; Rate: 1 bolus; Site: right antecubital; tw2 12:09 Drug: Cipro 400 mg Volume: 200 ml; Route: IVPB; Infused Over: 60 mins; Site: right hand;bp 13:10 Drug: ProTONIX 40 mg Route: IVP; Site: right hand; bp 13:42 Follow up: Response: No adverse reaction bp Outcome: 12:48 ER care complete, transfer ordered by MD. goss 14:41 Transferred by [facility] to [facility], Transfer form completed. bp 14:41 Condition: stable 14:41 Instructed on the need for transfer. 14:43 Patient left the ED. bp Signatures: Dispatcher [employer] EDMS Yecenia Combs RN RN aj1 Gary Ruano MD MD cha Lopez, Jose Fam em1 Opal Mcclellan RN RN tw2 Yulia Osorio4 Jairo Willingham RN RN Nury Marshall dt2 Courtney Osorio jg6 Corrections: (The following items were deleted from the chart) 11:20 11:20 Cipro 400 mg 200 ml IVPB in right antecubital over 60 mins 200 ml tw2 tw2
--- NOTE | 2017-11-16 12:49 | EDPHYS ---
Physician Documentation [facility] Name: Mike Peña Age: 82 yrs Sex: Male : 1935 Arrival Date: 11/16/2017 Time: 10:[address] Private MD: Sang Kaiser E ED Physician Gary Ruano HPI: 11/16 12:38 This 82 yrs old Male presents to ER via Wheelchair with complaints of Rectal wolfgang Bleeding. 12:38 The patient presents to the emergency department with bleeding from the rectum/anus, wolfgang that is moderate. Onset: The symptoms/episode began/occurred 1 day(s) ago. Historical: - Allergies: 11: No Known Drug Allergies; tw2 - Home Meds: 11:02 Aspirin Childrens 81 mg Oral chew [Active]; atorvastatin 40 mg Oral tab 1 tab once tw2 daily [Active]; duloxetine 60 mg Oral cpDR 1 cap nightly [Active]; Janumet 50-500 mg Oral tab 1 tab 2 times per day [Active]; levothyroxine 100 mcg tab 1 tab once daily [Active]; Lyrica 75 mg Oral 1 cap four times a day [Active]; magnesium oxide 400 mg Oral tab twice a day [Active]; midodrine 10 mg Oral tab 1 tab 3 times per day [Active]; omeprazole 40 mg Oral cpDR 1 cap once daily [Active]; tamsulosin 0.4 mg Oral cp24 1 cap once daily [Active]; valacyclovir 500 mg Oral tab 1 tab once daily [Active]; Veramyst 27.5 mcg/actuation nasal spsn 1 sprays once daily [Active]; - PMHx: 11:02 Cancer; carcinoma; Diverticulitis; Diabetes - NIDDM; tw2 - PSHx: 11:02 CABG; Cholecystectomy; Disc surgery; Hernia repair; tw2 - Immunization history:: Adult Immunizations. - Social history:: Smoking status: . - Ebola Screening: : Patient denies travel to an Ebola-affected area in the 21 days before illness onset. ROS: 12:39 Constitutional: Negative for fever, chills, and weight loss, Eyes: Negative for injury, wolfgang pain, redness, and discharge, ENT: Negative for injury, pain, and discharge, Neck: Negative for injury, pain, and swelling, Cardiovascular: Negative for chest pain, palpitations, and edema, Respiratory: Negative for shortness of breath, cough, wheezing, and pleuritic chest pain, Back: Negative for injury and pain, : Negative for injury, bleeding, discharge, and swelling, MS/Extremity: Negative for injury and deformity, Skin: Negative for injury, rash, and discoloration, Neuro: Negative for headache, weakness, numbness, tingling, and seizure, Psych: Negative for depression, anxiety, suicide ideation, homicidal ideation, and hallucinations, Allergy/Immunology: Negative for hives, rash, and allergies, Endocrine: Negative for neck swelling, polydipsia, polyuria, polyphagia, and marked weight changes, Hematologic/Lymphatic: Negative for swollen nodes, abnormal bleeding, and unusual bruising. 12:39 Abdomen/GI: Positive for abdominal pain, abdominal cramps, of the umbilical area, right lower quadrant and left lower quadrant. Exam: 12:39 Constitutional: This is a well developed, well nourished patient who is awake, alert, wolfgang and in no acute distress. Head/Face: Normocephalic, atraumatic. Eyes: Pupils equal round and reactive to light, extra-ocular motions intact. Lids and lashes normal. Conjunctiva and sclera are non-icteric and not injected. Cornea within normal limits. Periorbital areas with no swelling, redness, or edema. ENT: Nares patent. No nasal discharge, no septal abnormalities noted. Tympanic membranes are normal and external auditory canals are clear. Oropharynx with no redness, swelling, or masses, exudates, or evidence of obstruction, uvula midline. Mucous membranes moist. Neck: Trachea midline, no thyromegaly or masses palpated, and no cervical lymphadenopathy. Supple, full range of motion without nuchal rigidity, or vertebral point tenderness. No Meningismus. Chest/axilla: Normal chest wall appearance and motion. Nontender with no deformity. No lesions are appreciated. Cardiovascular: Regular rate and rhythm with a normal S1 and S2. No gallops, murmurs, or rubs. Normal PMI, no JVD. No pulse deficits. Respiratory: Lungs have equal breath sounds bilaterally, clear to auscultation and percussion. No rales, rhonchi or wheezes noted. No increased work of breathing, no retractions or nasal flaring. Back: No spinal tenderness. No costovertebral tenderness. Full range of motion. Male : Normal genitalia with no discharge or lesions. Skin: Warm, dry with normal turgor. Normal color with no rashes, no lesions, and no evidence of cellulitis. MS/ Extremity: Pulses equal, no cyanosis. Neurovascular intact. Full, normal range of motion. Neuro: Awake and alert, GCS 15, oriented to person, place, time, and situation. Cranial nerves II-XII grossly intact. Motor strength 5/5 in all extremities. Sensory grossly intact. Cerebellar exam normal. Normal gait. Psych: Awake, alert, with orientation to person, place and time. Behavior, mood, and affect are within normal limits. 12:39 Abdomen/GI: Inspection: abdomen appears normal, Bowel sounds: normal, active, Palpation: abdomen is soft and non-tender, Rectal exam: Prostate: normal, rectal tone normal, Stool: grossly bloody, guaiac positive, hemorrhoid(s), are not appreciated, mass, is not appreciated, swelling, is not appreciated, Liver: no appreciated palpable abnormalities, Hernia: not appreciated. Vital Signs: 10:54 BP 77 / 54; Pulse 96; Resp 20; Temp 97.6; Pulse Ox 96% on R/A; Weight 79.38 kg (R); aj1 Height 6 ft. 1 in. (185.42 cm) (R); Pain 0/10; 11:04 BP 116 / 61; Pulse 93; Resp 12; Pulse Ox 99% on R/A; tw2 12:17 BP 107 / 62; Pulse 81; Resp 14; Pulse Ox 98% on R/A; tw2 12:26 BP 132 / 72; Pulse 89; Resp 19; Pulse Ox 99% ; bp 13:11 BP 138 / 71; Pulse 92; Resp 14; Pulse Ox 98% ; bp 14:21 BP 136 / 70; Pulse 83; Resp 16; Pulse Ox 98% on R/A; tw2 10:54 Body Mass Index 23.09 (79.38 kg, 185.42 cm) aj1 MDM: 10:57 Patient medically screened. [facility] 12:40 Data reviewed: vital signs, nurses notes, lab test result(s), EKG, radiologic studies. [facility] 11/16 11:00 Order name: Basic Metabolic Panel [facility] 11/16 11:00 Order name: CBC with Diff [facility] 11/16 11:00 Order name: LFT's [facility] 11/16 11:00 Order name: Magnesium [facility] 11/16 11:00 Order name: NT PRO-BNP; Complete Time: 12:32 [facility] 11/16 11:00 Order name: PT-INR; Complete Time: 12:32 [facility] 11/16 11:00 Order name: Troponin (emerg Dept Use Only); Complete Time: 12:32 [facility] 11/16 11:00 Order name: Lipase; Complete Time: 12:32 [facility] 11/16 11:00 Order name: Type And Screen [facility] 11/16 11:01 Order name: Basic Metabolic Panel; Complete Time: 12:32 EDID 11/16 11:01 Order name: CBC with Automated Diff; Complete Time: 12:32 [facility]ID 11/16 11:01 Order name: Liver (Hepatic) Function; Complete Time: 12:32 [facility]ID 11/16 11:01 Order name: Magnesium; Complete Time: 12:32 [facility] 11/16 11:00 Order name: XRAY Chest (1 view); Complete Time: 12:32 [facility] 11/16 11:00 Order name: EKG; Complete Time: 11:02 [facility] 11/16 11:00 Order name: Cardiac monitoring; Complete Time: 11:10 [facility] 11/16 11:00 Order name: EKG - Nurse/Tech; Complete Time: 11:10 [facility] 11/16 11:00 Order name: IV Saline Lock; Complete Time: 11:10 [facility] 11/16 11:00 Order name: Labs collected and sent; Complete Time: 11:10 [facility] 11/16 11:00 Order name: CT Abd/Pelvis - W/Contrast [facility] 11/16 11:03 Order name: Bb Add On bd 11/16 11:26 Order name: CBC Smear Scan; Complete Time: 12:32 [facility] 11/16 12:19 Order name: Antibody Identification [facility] 11/16 14:04 Order name: Antibody Screen [facility] 11/16 11:00 Order name: O2 Per Protocol; Complete Time: 11:10 [facility] 11/16 11:00 Order name: O2 Sat Monitoring; Complete Time: 11:10 [facility] 11/16 11:00 Order name: IV Saline Lock - Large Bore; Complete Time: 11:16 [facility] Administered Medications: 11:19 Drug: Flagyl 500 mg Volume: 100 ml; Route: IVPB; Rate: 200 ml/hr; Infused Over: 30 tw2 mins; Site: right antecubital; 11:20 Drug: NS 0.9% 1000 ml Route: IV; Rate: 1 bolus; Site: right antecubital; tw2 12:09 Drug: Cipro 400 mg Volume: 200 ml; Route: IVPB; Infused Over: 60 mins; Site: right hand;bp 13:10 Drug: ProTONIX 40 mg Route: IVP; Site: right hand; bp 13:42 Follow up: Response: No adverse reaction bp Disposition: 11/16/17 12:[address] [facility]. Diagnosis are Gastrointestinal hemorrhage, unspecified - lower, Diverticular disease of intestine, Abdominal tenderness, Anemia, unspecified, Type 2 diabetes mellitus. - Reason for transfer: Higher level of care. - Accepting physician is to [facility]. - Condition is Fair. - Problem is new. - Symptoms have improved. Signatures: Dispatcher [employer] EDID Gary Ruano MD MD cha Wise, Tara RN RN tw2 Jairo Willingham RN RN bp Corrections: (The following items were deleted from the chart) 12:48 12:48 11/16/2017 12:[address] [facility]. Diagnosis is wolfgang Gastrointestinal hemorrhage, unspecified - lower; Diverticular disease of intestine; Abdominal tenderness; Anemia, unspecified. Reason for transfer: Higher level of care. Accepting physician is to [facility]. Condition is Fair. Problem is new. Symptoms have improved. [facility] 14:07 11:04 Packed RBC Leukored -1 ordered. [facility] 14:43 12:48 11/16/2017 12:[address] [facility]. Diagnosis is bp Gastrointestinal hemorrhage, unspecified - lower; Diverticular disease of intestine; Abdominal tenderness; Anemia, unspecified; Type 2 diabetes mellitus. Reason for transfer: Higher level of care. Accepting physician is to [facility]. Condition is Fair. Problem is new. Symptoms have improved. wolfgang
--- NOTE | 2017-11-16 12:58 | EKG ---
Test Date: 2017-11-16 Test Time: 11:21:09 Disposal Operator: LEANN MEASUREMENT RESULTS: Intervals: Rate: 87 OK: 160 QRSD: 130 QT: 414 QTc: 498 [place]: P: 77 OK: 160 QRS: 40 T: 60 INTERPRETIVE STATEMENTS: Normal sinus rhythm Right bundle branch block Abnormal ECG Compared to ECG 04/14/2017 09:18:01 Sinus tachycardia no longer present Left-axis deviation no longer present Myocardial infarct finding no longer present Electronically Signed On 11-16-17 12:57:42 CDT by Gm Romo
[2017-11-16] MEDS ORDERED: PANTOPRAZOLE 40 MG INJ ONE (13:28)
--- NOTE | 2017-11-16 14:11 | RAD REPORT ---
EXAM DESCRIPTION: CTAbdomen Pelvis W Contrast - 11/16/2017 1:59 pm CLINICAL HISTORY: Abdominal pain. ABD PAIN COMPARISON: Abdomen Pelvis W Contrast dated 04/14/2017; Abdomen Pelvis W Contrast dated 12/20/2015 TECHNIQUE: Biphasic CT imaging of the abdomen and pelvis was performed with 100 ml non-ionic IV cont rast. All CT scans are performed using dose optimization technique as appropriate and may include automated exposure control or mA/KV adjustment according to patient size. FINDINGS: The lung bases are emphysematous.Small hiatal hernia is present. Mild fatty liver is noted. No aggressive liver lesion or biliary dilatation. The spleen, pancreas, ad renal glands kidneys show no worrisome process. Prominent cyst is seen left kidney measuring 6 cm. No bowel obstruction, free air, free fluid or abscess. Prominent colonic diverticulosis is noted grea test in the descending and sigmoid colon. No diverticulitis findings are present. The appendix is nor mal. No evidence of significant lymphadenopathy. Small fat containing inguinal hernias. No suspicious bony findings. IMPRESSION: Prominent colonic diverticulosis is seen. No diverticulitis. Fatty liver.
[2017-11-16 14:50] VITALS: TEMP 97.6
[2017-11-16 14:55] VITALS: O2SAT 98
[2017-11-16 14:56] VITALS: BP 136/70
== END 2017-11-16 14:43 | disposition short-term general hospital (02) ==
LOC: ER 10:24
DX: K57.90 Diverticulosis of intestine, part unspecified, without perforation or abscess without bleeding (principal); D64.9 Anemia, unspecified; R10.819 Abdominal tenderness, unspecified site; E11.9 Type 2 diabetes mellitus without complications; Z95.1 Presence of aortocoronary bypass graft; Z79.82 Long term (current) use of aspirin
CPT/HCPCS: 36415; 71045; 74177; 80048; 80076; 83690; 83735; 83880; 84484; 85025; 85610; 86850 ×2; 86900; 86901; 93005; C9113; J0744; J7030; Q9967; 99285

== ENCOUNTER 2020-04-07 13:10 | Emergency (ER) | payer OTHER ==
--- OUTSIDE RECORDS SUMMARY | 2020-04-07 13:13 | XMS REPORT | Clinical Summary ---
:1935 Author Organization [facility] Address [address] [place] [id number] Care Team Providers Name Role Phone Unavailable Primary Care Provider Unavailable Allergies Active Allergy Reactions Severity Noted Date Comments No Known Drug Allergies 06/26/2014 Othe r reaction(s): Unknown Medications Medication Sig Dispensed Refills Start Date End Date Status atorvastatin (LIPITOR) Take 40 mg by 0 Active 40 MG tabletIndications: mouth daily. hyperlipidemia levothyroxine Take 100 mcg by 0 Active (SYNTHROID, LEVOTHROID) mouth Every 100 MCG morning on an tabletIndications: empty stomach. hypothyroidism DULoxetine (CYMBALTA) 60 Take 60 mg by 0 Active MG capsuleIndications: mouth daily. diabetic peripheral neuropathy SITagliptin-metFORMIN Take 1 tablet by 0 Active (JANUMET) 50-1,000 mg mouth 2 (two) per tabletIndications: times daily with type 2 diabetes mellitus breakfast and dinner. valACYclovir (VALTREX) Take 500 mg by 0 Active 500 MG mouth daily. tabletIndications: shingles tamsulosin (FLOMAX) 0.4 Take 0.4 mg by 0 Active mg Cp24 24 hr mouth daily. capsuleIndications: benign prostatic hyperplasia with lower urinary tract sx magnesium oxide (MAG-OX) Take 400 mg by 0 Active 400 mg tablet mouth 2 (two) times daily. omeprazole (PRILOSEC) 40 Take 40 mg by 0 Active MG capsuleIndications: mouth daily. gastroesophageal reflux disease midodrine (PROAMATINE) Take 10 mg by 0 Active 10 MG tablet mouth 3 (three) times daily. fluticasone (VERAMYST) 2 sprays by 0 Active 27.5 mcg/actuation nasal Nasal route sprayIndications: daily. 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 Hypothyroidism 04/19/2017 Acute blood loss anemia 04/15/2017 Lower gastrointestinal bleeding 04/15/2017 RAHUL (acute kidney injury) 04/15/2017 Family History Medical History Relation Name Comments Early Mother Heart disease Mother Diabetes Paternal Grandmother Diabetes Sister Relation Name Status Comments Mother Paternal Grandmother Sister Social History Tobacco Use Types Packs/Day Years Used Date Former Smoker Smokeless Tobacco: Never Used Qu it: 11/15/1968 Alcohol Use Drinks/Week oz/Week Comments Yes 1 Glasses of wine 1.0 once in a whil e Sex Assigned at Date Recorded Not on file Last Filed Vital Signs Not on file Plan of Treatment Health Maintenance Due Date Last Done Comments MEDICARE ANNUAL WELLNESS (YEAR 2 or FIRST YEAR if no 03/19/2002 IPPE) INFLUENZA VACCINE (#1) 2019 03/03/2014 PNEUMOCOCCAL 65+ YRS Completed 11/25/2012 Results Not on fileafter 04/07/2019 Insurance Payer Benefit Plan / Subscriber ID Effective Dates Phone Addre ss Type Group MEDICARE MEDICARE A B [id number] 2001-Present Medicare FOR LIFE [id number] 2017-Present Other Govt (, [place], [facility], etc .) (Home) [place] [address] Advance Directives For more information, please contact: [phone] Code Status Date Activated Date Inactivated Comments Full Code 11/16/2017 6:20 PM 11/18/2017 3:48 PM This code status was determined by: Patient Full Code 04/18/2017 1:10 PM 04/20/2017 9:42 PM This code status was determined by: Patient Partial Code 04/18/2017 1:08 PM 04/18/2017 1:10 PM This code status was determined by: Spouse Drug Protocol After Arrest Occurs? No Mechanical Ventilation with Intubation? Yes Bag/Mask? No Internal/External Pacemaker? No Transfer to Critical Care? Yes Chest Compressions? No Defibrillation/Cardioversion? No Full Code 04/15/2017 4:13 PM 04/18/2017 1:08 PM This code status was determined by: Patient Name Relationship Healthcare Agent Relationship Co mmunication Mando Peña Son [facility] Age nt
--- OUTSIDE RECORDS SUMMARY | 2020-04-07 13:14 | XMS REPORT | Continuity of Care Document ---
:1935 Author Organization [facility] t Address [address] [place] [address] Care Team Providers Name Role Phone ADRIANA MORGAN JR Primary Care Physician Unavailable Judah WALLIS Attending Clinician Unavailable Carlos GRAMAJO Attending Clinician FARSHAD Attending Clinician Unavailable Mini YEN Attending Clinician Unavailable OMMAMI Attending Clinician Unavailable Mini YEN Admitting Clinician Unavailable OMRANIAN Admitting Clinician Unavailable Payers Payer Name Policy Type Policy Effective Date Expiration Date Sour ce Number MEDICAREMEDICARE PART [id number] 2001 MD Alden Cisneros AND 00:00:00 [id number] [id number] [place], [place]Med[place]ARET[place]ICARE FOR [id number] 2015 And paolo [id number] 2015 00:00:00 -PresentGovernmental Other Problems Condition Condition Condition Status Onset Resolution Last Treating Co mments Source Name Details Category Date Date Treatment Clinician Date GI bleed GI bleed Disease [facility] 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 Hypothyroi Hypothyroi Disease Active [facility] dism dism 04-19 [facility] Acute Acute Disease Active [facility] blood loss blood loss 3- Luz Marina kes - anemia anemia 00:00: Medical 00 Center Lower Lower Disease Active [facility] gastrointe gastrointe 3- Luz Marina kes - stinal stinal 00:00: Medical bleeding bleeding 00 Center RAHUL (acute RAHUL (acute Disease Active [facility] kidney kidney 3- [facility] - injury) injury) 00:00: Medical 00 [place] 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 Family History Family Member Diagnosis Comments Start Date Stop Date Source Natural mother Early [facility] Natural mother Heart disease [facility] Paternal grandmother Diabetes [facility] Natural sister Diabetes [facility] Social History Social Habit Start Date Stop Date Quantity Comments Source Sex Assigned At MD Lezama on Alcohol intake 2017-11-18 2017-11-18 Current drinker [facility] Alonzo Shea - 00:00:00 00:00:00 of alcohol [facility] Center (finding) Tobacco use and 2017-11-18 2017-11-18 Never used [facility] - exposure 00:00:00 00:00:00 [facility] Alcohol Comment 2017-11-16 2017-11-16 once in a while [facility] - 00:00:00 00:00:00 [facility] Smoking Status Start Date Stop Date Source Former smoker 2017-11-18 00:00:00 2017-11-18 00:00:00 [facility] Medications Ordered Filled Start Stop Current Ordering Indication Dosage Frequency Signature Comments Components Source Medication Medication Date Date Medication? Clinician (SIG) Name Name aspirin 81 2017-02 Yes 81mg Chew 81 MD mg chewable 2-04 mg. Anderso tablet 20:41: n 18 DULoxetine 2017-02 Yes 60mg Take 60 mg M D (CYMBALTA) 2-04 by mouth. Darnell rso 60 mg 20:41: n capsule 18 pregabalin 2017-02 Yes 75mg Take 75 mg M D (LYRICA) 75 2-04 by mouth. And erso mg capsule 20:41: n 18 magnesium 2017-02 Yes 400mg Take 400 MD oxide 2-04 mg by Anderso (MAOX) 400 20:41: mouth. n mg tablet 18 omeprazole 2017-02 Yes 40mg Take 40 mg M D (PriLOSEC) 2-04 by mouth. Darnell rso 40 MG 20:41: n capsule 18 levothyroxi 2017-02 Yes Take by ne 2-04 mouth. Jacklyn (SYNTHROID, 20:41: n LEVOTHROID) 18 100 mcg tablet sitaGLIPtin 2017-02 Yes Take by MD TolbretmetFORMIN 2-04 mouth. Jacklyn (JANUMET) 17:58: n 50 mg-1,000 17 mg per tablet magnesium 2017-02 Yes 400mg Q.5D Take [address] [facility] [address] oxide 0-04 mg by [facility] - (MAG-OX) 13:48: mouth 2 Medica l 400 mg 51 (two) Center tablet times daily. omeprazole 2017-02 Yes gastroesoph 40mg QD Take [address] (PRILOSEC) 0-04 ageal by mouth Luke s - 40 MG 13:48: reflux daily. Medical capsule 51 disease Center midodrine 2017-02 Yes 10mg [id number] Take [address] [facility] (PROAMATINE 0-04 [id number] by mouth 3 [facility] - ) 10 MG 13:48: 3D (three) Medical tablet 51 times Center daily. fluticasone 2017-02 Yes allergic 2{spray QD [address] [address] (VERAMYST) 0-04 rhinitis } by Nasal L ukes - 27.5 13:48: route Medical mcg/actuati 51 daily. Center on nasal spray atorvastati 2017-02 Yes hyperlipide 40mg QD Take [address] [facility] n (LIPITOR) 0-04 bety by mouth Luke s - 40 MG 13:48: daily. Medical tablet 51 Center levothyroxi 2017-02 Yes hypothyroid 100ug Take [address] ne 0-04 ism mcg by [facility] - (SYNTHROID, 13:48: mouth Medic al LEVOTHROID) 51 Every Center 100 MCG morning on tablet an empty stomach. DULoxetine 2017-02 Yes diabetic 60mg QD Take [address] (CYMBALTA) 0-04 peripheral by mouth [facility] - 60 MG 13:48: neuropathy daily. Medi alphonso capsule 51 Center SITagliptin 2017-02 Yes type 2 1{tbl} Take [address] -metFORMIN 0-04 diabetes tablet by [facility] - (JANUMET) 13:48: mellitus mouth 2 M edical 50-1,000 mg 51 (two) Center per tablet times daily with breakfast and dinner. valACYclovi 2017-02 Yes 500mg QD Take [address] r (VALTREX) 0-04 mg by [facility] - 500 MG 13:48: mouth Medical tablet 51 daily. Center tamsulosin 2017-02 Yes benign .4mg QD Take 0.[address] (FLOMAX) 0-04 prostatic mg by [facility] - 0.4 mg Cp24 13:48: hyperplasia mouth Medical 24 hr 51 with lower daily. Center capsule urinary tract sx tamsulosin 2016-02 Yes .4mg Take 0.4 MD (FLOMAX) 1-22 mg by Anderso 0.4 mg 24 18:59: mouth. n hr capsule 38 valACYclovi 2016-02 Yes 500mg Take 500 M D r (VALTREX) 1-22 mg by Anderso 500 mg 18:59: mouth. n tablet 38 atorvastati 2016-02 Yes MD braden (LIPITOR) 0-28 Anderso 10 mg 00:00: n tablet 00 VERAMYST 2017- Yes 27.5 1-26 Anderso mcg/actuati 00:00: n on nasal 00 spray Procedures This patient has no known procedures. Plan of Care Planned Activity Planned Date Details Comments Source Future Scheduled 2019-10-[address] [facility] Test 00:00:00 (#1) [code = [facility] Center INFLUENZA VACCINE (#1)] Future Scheduled 2002-03-[address] [facility] - Test 00:00:00 WELLNESS (YEAR 2 or Medical Center FIRST YEAR if no IPPE) [code = MEDICARE ANNUAL WELLNESS (YEAR 2 or FIRST YEAR if no IPPE)] Encounters Start End Encounter Admission Attending Care Care Encounter Source Date/Time Date/Time Type Type Clinicians Facility Department ID 2019-08-30 2019-08-30 Outpatient ASHLEE YEN MDA MDA [id number] 00:00:00 00:00:00 CHEYANNE braden Results Test Description Test Time Test Comments Results Result Comments Source POCT-GLUCOSE METER 2017-11-18 07:54:00 Test Item Value Reference Range Interpretation Comme nts POC-GLUCOSE METER (BEAKER) (test 87 mg/dL 70-110 TESTED AT [facility] [address] [facility] code = 1538) [place] [address] [id number] 06:53:00 Test Item Value Reference Range Interpretation Comments MAGNESIUM (BEAKER) (test code = 1.7 mg/dL 1.6-2.6 627) BASIC METABOLIC [id number] 06:53:00 Test Item Value Reference Range Interpretation Comments SODIUM (BEAKER) 138 meq/L 136-145 (test code = 381) POTASSIUM (BEAKER) 3.7 meq/L 3.5-5.1 (test code = 379) CHLORIDE (BEAKER) 107 meq/L 98-107 (test code = 382) CO2 (BEAKER) (test 24 meq/L 22-29 code = 355) BLOOD UREA NITROGEN 12 mg/dL 7-21 (BEAKER) (test code = 354) CREATININE (BEAKER) 0.76 mg/dL 0.57-1.25 (test code = 358) GLUCOSE RANDOM 81 mg/dL 70-105 (BEAKER) (test code = 652) CALCIUM (BEAKER) 8.2 mg/dL 8.4-10.2 L (test code = 697) EGFR (BEAKER) (test 98 mL/min/1.73 ESTIMA RIGOBERTO GFR IS code = 1092) sq m NOT ACCURATE CREATININE CLEARANCE IN PREDICTING GLOMERULAR FILTRATION RATE . ESTIMATED GFR I S NOT APPLICABLE FOR DIALYSIS PATIEN TS. CBC W/PLT COUNT & AUTO [id number] 06:50:00 Test Item Value Reference Range Interpretation Comments WHITE BLOOD CELL COUNT (BEAKER) 5.6 K/ L 3.5-10.5 (test code = 775) RED BLOOD CELL COUNT (BEAKER) 3.15 M/ L 4.63-6.08 L (test code = 761) HEMOGLOBIN (BEAKER) (test code = 8.2 GM/DL 13.7-17.5 L 410) HEMATOCRIT (BEAKER) (test code = 26.2 % 40.1-51.0 L 411) MEAN CORPUSCULAR VOLUME (BEAKER) 83.2 fL 79.0-92.2 (test code = 753) MEAN CORPUSCULAR HEMOGLOBIN 26.0 pg 25.7-32.2 (BEAKER) (test code = 751) MEAN CORPUSCULAR HEMOGLOBIN CONC 31.3 GM/DL 32.3-36.5 L (BEAKER) (test code = 752) RED CELL DISTRIBUTION WIDTH 17.1 % 11.6-14.4 H (BEAKER) (test code = 412) PLATELET COUNT (BEAKER) (test 213 K/CU MM 150-450 code = 756) MEAN PLATELET VOLUME (BEAKER) 9.1 fL 9.4-12.4 L (test code = 754) NUCLEATED RED BLOOD CELLS 0 /100 WBC 0-0 (BEAKER) (test code = 413) NEUTROPHILS RELATIVE PERCENT 63 % (BEAKER) (test code = 429) LYMPHOCYTES RELATIVE PERCENT 18 % (BEAKER) (test code = 430) MONOCYTES RELATIVE PERCENT 8 % (BEAKER) (test code = 431) EOSINOPHILS RELATIVE PERCENT 11 % (BEAKER) (test code = 432) BASOPHILS RELATIVE PERCENT 1 % (BEAKER) (test code = 437) NEUTROPHILS ABSOLUTE COUNT 3.49 K/ L 1.78-5.38 (BEAKER) (test code = 670) LYMPHOCYTES ABSOLUTE COUNT 0.98 K/ L 1.32-3.57 L (BEAKER) (test code = 414) MONOCYTES ABSOLUTE COUNT (BEAKER) 0.42 K/ L 0.30-0.82 (test code = 415) EOSINOPHILS ABSOLUTE COUNT 0.61 K/ L 0.04-0.54 H (BEAKER) (test code = 416) BASOPHILS ABSOLUTE COUNT (BEAKER) 0.05 K/ L 0.01-0.08 (test code = 417) IMMATURE GRANULOCYTES-RELATIVE 0 % 0-1 PERCENT (BEAKER) (test code = 2801) HEMOGLOBIN AND [id number] 06:36:00 Test Item Value Reference Range Interpretation Comments HEMOGLOBIN (BEAKER) (test code = 8.2 GM/DL 13.7-17.5 L 410) HEMATOCRIT (BEAKER) (test code = 26.2 % 40.1-51.0 L 411) POCT-GLUCOSE [id number] 00:26:00 Test Item Value Reference Range Interpretation Comments POC-GLUCOSE METER 96 mg/dL 70-110 TESTED AT [facility] 67[address] (BEAKER) (test code = [place] [address] 1538) [id number] 17:54:00 Test Item Value Reference Range Interpretation Comments MAGNESIUM (BEAKER) (test code = 1.5 mg/dL 1.6-2.6 L 627) BASIC METABOLIC [id number] 17:54:00 Test Item Value Reference Range Interpretation Comments SODIUM (BEAKER) 140 meq/L 136-145 (test code = 381) POTASSIUM (BEAKER) 3.5 meq/L 3.5-5.1 (test code = 379) CHLORIDE (BEAKER) 106 meq/L 98-107 (test code = 382) CO2 (BEAKER) (test 24 meq/L 22-29 code = 355) BLOOD UREA NITROGEN 16 mg/dL 7-21 (BEAKER) (test code = 354) CREATININE (BEAKER) 0.79 mg/dL 0.57-1.25 (test code = 358) GLUCOSE RANDOM 72 mg/dL 70-105 (BEAKER) (test code = 652) CALCIUM (BEAKER) 8.5 mg/dL 8.4-10.2 (test code = 697) EGFR (BEAKER) (test 94 mL/min/1.73 ESTIMA RIGOBERTO GFR IS code = 1092) sq m NOT ACCURATE CREATININE CLEARANCE IN PREDICTING GLOMERULAR FILTRATION RATE . ESTIMATED GFR I S NOT APPLICABLE FOR DIALYSIS PATIEN TS. PROTHROMBIN [id number] 17:33:00 Test Item Value Reference Range Interpretation Comments PROTIME (BEAKER) (test code = 15.0 seconds 11.7-14.7 H 759) INR (BEAKER) (test code = 370) 1.2 <=5.9 RECOMMENDED COUMADIN/WARFARIN INR THERAPY RANGESSTANDARD DOSE: 2.0 - 3.0 Includes: PROPHYLAXIS forvenous thrombosis, systemic embolization; TREATMENT for venous thrombosis and/or pulmonary embolus.HIGH RISK: Target INR is 2.5-3.5 for patients with mechanical heart valves.HEMOGLOBIN AND [id number] 17:25:00 Test Item Value Reference Range Interpretation Comments HEMOGLOBIN (BEAKER) (test code = 8.9 GM/DL 13.7-17.5 L 410) HEMATOCRIT (BEAKER) (test code = 27.8 % 40.1-51.0 L 411) POCT-GLUCOSE [id number] 17:03:00 Test Item Value Reference Range Interpretation Comments POC-GLUCOSE METER 84 mg/dL 70-110 TESTED AT [facility] 6720 (BEAKER) (test code = FABIOLA Tobias [facility] [id number] 1538) POCT-GLUCOSE [id number] 15:23:00 Test Item Value Reference Range Interpretation Comments POC-GLUCOSE METER 85 mg/dL 70-110 TESTED AT [place] [id number] (BEAKER) (test code = FABIOLA Tobias [facility] [address] 1538) POCT-GLUCOSE [id number] 07:16:00 Test Item Value Reference Range Interpretation Comments POC-GLUCOSE METER 104 mg/dL 70-110 TESTED AT [place] [address] (BEAKER) (test code = [facility] Micheline [facility] 1538) [id number] HEMOGLOBIN AND [id number] 01:14:00 Test Item Value Reference Range Interpretation Comments HEMOGLOBIN (BEAKER) (test code = 6.7 GM/DL 13.7-17.5 L 410) HEMATOCRIT (BEAKER) (test code = 21.6 % 40.1-51.0 L 411) BASIC METABOLIC [id number] 20:19:00 Test Item Value Reference Range Interpretation Comments SODIUM (BEAKER) 136 meq/L 136-145 (test code = 381) POTASSIUM (BEAKER) 4.3 meq/L 3.5-5.1 Specimen slightly (test code = 379) hemolyzed CHLORIDE (BEAKER) 103 meq/L 98-107 (test code = 382) CO2 (BEAKER) (test 23 meq/L 22-29 code = 355) BLOOD UREA NITROGEN 26 mg/dL 7-21 H (BEAKER) (test code = 354) CREATININE (BEAKER) 0.80 mg/dL 0.57-1.25 Specimen slightly (test code = 358) hemolyzed GLUCOSE RANDOM 99 mg/dL 70-105 (BEAKER) (test code = 652) CALCIUM (BEAKER) 8.4 mg/dL 8.4-10.2 (test code = 697) EGFR (BEAKER) (test 93 mL/min/1.73 ESTIMA RIGOBERTO GFR IS code = 1092) sq m NOT ACCURATE CREATININE CLEARANCE IN PREDICTING GLOMERULAR FILTRATION RATE . ESTIMATED GFR I S NOT APPLICABLE FOR DIALYSIS PATIEN TS. HEPATIC FUNCTION [id number] 20:19:00 Test Item Value Reference Range Interpretation Comments TOTAL PROTEIN (BEAKER) 6.4 gm/dL 6.0-8.3 Speci men slightly (test code = 770) hemolyzed ALBUMIN (BEAKER) (test 3.6 g/dL 3.5-5.0 Speci men slightly code = 1145) hemolyzed BILIRUBIN TOTAL 0.4 mg/dL 0.2-1.2 Specimen sli ghtly (BEAKER) (test code = hemoly zed 377) BILIRUBIN DIRECT 0.2 mg/dL 0.1-0.5 Specimen sl ightly (BEAKER) (test code = hemoly zed 706) ALKALINE PHOSPHATASE 51 U/L 40-150 (BEAKER) (test code = 346) AST (SGOT) (BEAKER) 17 U/L 5-34 Specimen slightly (test code = 353) hemolyzed ALT (SGPT) (BEAKER) 11 U/L 6-55 Specimen slightly (test code = 347) hemolyzed PROTHROMBIN [id number] 20:10:00 Test Item Value Reference Range Interpretation Comments PROTIME (BEAKER) (test code = 15.6 seconds 11.7-14.7 H 759) INR (BEAKER) (test code = 370) 1.2 <=5.9 RECOMMENDED COUMADIN/WARFARIN INR THERAPY RANGESSTANDARD DOSE: 2.0 - 3.0 Includes: PROPHYLAXIS forvenous thrombosis, systemic embolization; TREATMENT for venous thrombosis and/or pulmonary embolus.HIGH RISK: Target INR is 2.5-3.5 for patients with mechanical heart valves.CBC W/PLT COUNT & AUTO DIFFERENTIAL 2017-11-16 20:01:00 Test Item Value Reference Range Interpretation Comments WHITE BLOOD CELL COUNT (BEAKER) 7.8 K/ L 3.5-10.5 (test code = 775) RED BLOOD CELL COUNT (BEAKER) 2.73 M/ L 4.63-6.08 L (test code = 761) HEMOGLOBIN (BEAKER) (test code = 6.7 GM/DL 13.7-17.5 L 410) HEMATOCRIT (BEAKER) (test code = 22.3 % 40.1-51.0 L 411) MEAN CORPUSCULAR VOLUME (BEAKER) 81.7 fL 79.0-92.2 (test code = 753) MEAN CORPUSCULAR HEMOGLOBIN 24.5 pg 25.7-32.2 L (BEAKER) (test code = 751) MEAN CORPUSCULAR HEMOGLOBIN CONC 30.0 GM/DL 32.3-36.5 L (BEAKER) (test code = 752) RED CELL DISTRIBUTION WIDTH 18.0 % 11.6-14.4 H (BEAKER) (test code = 412) PLATELET COUNT (BEAKER) (test 234 K/CU MM 150-450 code = 756) MEAN PLATELET VOLUME (BEAKER) 9.7 fL 9.4-12.4 (test code = 754) NUCLEATED RED BLOOD CELLS 0 /100 WBC 0-0 (BEAKER) (test code = 413) NEUTROPHILS RELATIVE PERCENT 77 % (BEAKER) (test code = 429) LYMPHOCYTES RELATIVE PERCENT 14 % (BEAKER) (test code = 430) MONOCYTES RELATIVE PERCENT 7 % (BEAKER) (test code = 431) EOSINOPHILS RELATIVE PERCENT 2 % (BEAKER) (test code = 432) BASOPHILS RELATIVE PERCENT 0 % (BEAKER) (test code = 437) NEUTROPHILS ABSOLUTE COUNT 6.00 K/ L 1.78-5.38 H (BEAKER) (test code = 670) LYMPHOCYTES ABSOLUTE COUNT 1.08 K/ L 1.32-3.57 L (BEAKER) (test code = 414) MONOCYTES ABSOLUTE COUNT (BEAKER) 0.53 K/ L 0.30-0.82 (test code = 415) EOSINOPHILS ABSOLUTE COUNT 0.13 K/ L 0.04-0.54 (BEAKER) (test code = 416) BASOPHILS ABSOLUTE COUNT (BEAKER) 0.03 K/ L 0.01-0.08 (test code = 417) IMMATURE GRANULOCYTES-RELATIVE 1 % 0-1 PERCENT (BEAKER) (test code = 2801) POCT-GLUCOSE [id number] 17:01:00 Test Item Value Reference Range Interpretation Comments POC-GLUCOSE METER 128 mg/dL 70-110 H TESTED AT [facility] 6720 (BEAKER) (test code = FABIOLA Tobias [facility] 1538) [address] ANG, VISCERAL [id number] 16:35:00FINAL REPORT Mesenteric angiogram, 04/15/2017. History: GI bleed. Modality: Fluoroscopy. Sedation: Versed 1.0 mg and fentanyl 50 mcg was given intravenously for conscious sedation. Vital signs were monitored throughout the procedure by a nurse, and remained stable. Physician intra- service time was 30 minutes. Anesthesia: Two percent Lidocaine without epinephrine. Approach: Right common femoral artery. Estimated blood loss: < 5 cc. Specimen: None. slitter creaser slotter operator: Maxim Sims MD. Desizing Machine Back Tender: None. Fluoroscopy Time: 2.1 min.Refer ence Air Kerma (Ka, r): 360 mGy. Technique: [...] was placed through the needle into the distalaorta. The needle was removed and a 4 Brazilian micropuncture sheath was placed, and the 0.018 wire wasexchanged for 0.035 inch J-wire. A 5 Brazilian sheath was placed. A 5 Brazilian Ag B catheter was used to select [...] appearance and patent without evidence of active extravasation,pseudoaneurysm, or abnormal vasculature.4. Right femoral sheath injection: The right common femoral artery is patent with normal position of the arterial sheath. Impression:1. Uncomplicated mesenteric angiogram.2. No evidence of active GI bleed.3. Arteriotomy hemostasis obtained with Mynx closure device. Signed: Maxim Sims MDReport Verified Date/Time: 04/22/2017 16:35:40 Reading Location: [place] [id number] Ultrasound Reading Room POCT-GLUCOSE [id number] 11:27:00 Test Item Value Reference Range Interpretation Comments POC-GLUCOSE METER 238 mg/dL 70-110 H TESTED AT [facility] [address] [facility] ([facility] = [facility] 1538) [address] POCT-GLUCOSE [id number] 08:08:00 Test Item Value Reference Range Interpretation Comments POC-GLUCOSE METER 146 mg/dL 70-110 H TESTED AT [place] [address] ([facility] (test code = [facility] 1538) [address] TSH/FREE T4 IF [id number] 05:24:00 Test Item Value Reference Range Interpretation Comments THYROID STIMULATING HORMONE 4.44 uIU/mL 0.35-4.94 (BEAKER) (test code = 772) [id number] 05:17:00 Test Item Value Reference Range Interpretation Comments PHOSPHORUS (BEAKER) (test code = 4.2 mg/dL 2.3-4.7 604) [id number] 05:17:00 Test Item Value Reference Range Interpretation Comments MAGNESIUM (BEAKER) (test code = 1.8 mg/dL 1.6-2.6 627) BASIC METABOLIC [id number] 05:17:00 Test Item Value Reference Range Interpretation Comments SODIUM (BEAKER) 137 meq/L 136-145 (test code = 381) POTASSIUM (BEAKER) 4.3 meq/L 3.5-5.1 (test code = 379) CHLORIDE (BEAKER) 108 meq/L 98-107 H (test code = 382) CO2 (BEAKER) (test 23 meq/L 22-29 code = 355) BLOOD UREA NITROGEN 13 mg/dL 7-21 (BEAKER) (test code = 354) CREATININE (BEAKER) 0.86 mg/dL 0.57-1.25 (test code = 358) GLUCOSE RANDOM 119 mg/dL 70-105 H (BEAKER) (test code = 652) CALCIUM (BEAKER) 8.2 mg/dL 8.4-10.2 L (test code = 697) EGFR (BEAKER) (test 85 mL/min/1.73 ESTIMA RIGOBERTO GFR IS code = 1092) sq m NOT ACCURATE CREATININE CLEARANCE IN PREDICTING GLOMERULAR FILTRATION RATE . ESTIMATED GFR I S NOT APPLICABLE FOR DIALYSIS PATIEN TS. CBC W/PLT COUNT & AUTO [id number] 04:53:00 Test Item Value Reference Range Interpretation Comments WHITE BLOOD CELL COUNT (BEAKER) 6.3 K/ L 3.5-10.5 (test code = 775) RED BLOOD CELL COUNT (BEAKER) 3.10 M/ L 4.63-6.08 L (test code = 761) HEMOGLOBIN (BEAKER) (test code = 9.1 GM/DL 13.7-17.5 L 410) HEMATOCRIT (BEAKER) (test code = 27.7 % 40.1-51.0 L 411) MEAN CORPUSCULAR VOLUME (BEAKER) 89.4 fL 79.0-92.2 (test code = 753) MEAN CORPUSCULAR HEMOGLOBIN 29.4 pg 25.7-32.2 (BEAKER) (test code = 751) MEAN CORPUSCULAR HEMOGLOBIN CONC 32.9 GM/DL 32.3-36.5 (BEAKER) (test code = 752) RED CELL DISTRIBUTION WIDTH 16.2 % 11.6-14.4 H (BEAKER) (test code = 412) PLATELET COUNT (BEAKER) (test 149 K/CU MM 150-450 L code = 756) MEAN PLATELET VOLUME (BEAKER) 10.6 fL 9.4-12.4 (test code = 754) NUCLEATED RED BLOOD CELLS 0 /100 WBC 0-0 (BEAKER) (test code = 413) NEUTROPHILS RELATIVE PERCENT 60 % (BEAKER) (test code = 429) LYMPHOCYTES RELATIVE PERCENT 17 % (BEAKER) (test code = 430) MONOCYTES RELATIVE PERCENT 10 % (BEAKER) (test code = 431) EOSINOPHILS RELATIVE PERCENT 11 % (BEAKER) (test code = 432) BASOPHILS RELATIVE PERCENT 1 % (BEAKER) (test code = 437) NEUTROPHILS ABSOLUTE COUNT 3.79 K/ L 1.78-5.38 (BEAKER) (test code = 670) LYMPHOCYTES ABSOLUTE COUNT 1.08 K/ L 1.32-3.57 L (BEAKER) (test code = 414) MONOCYTES ABSOLUTE COUNT (BEAKER) 0.64 K/ L 0.30-0.82 (test code = 415) EOSINOPHILS ABSOLUTE COUNT 0.71 K/ L 0.04-0.54 H (BEAKER) (test code = 416) BASOPHILS ABSOLUTE COUNT (BEAKER) 0.05 K/ L 0.01-0.08 (test code = 417) IMMATURE GRANULOCYTES-RELATIVE 1 % 0-1 PERCENT (BEAKER) (test code = 2801) HEMOGLOBIN AND [id number] 04:48:00 Test Item Value Reference Range Interpretation Comments HEMOGLOBIN (BEAKER) (test code = 9.1 GM/DL 13.7-17.5 L 410) HEMATOCRIT (BEAKER) (test code = 27.7 % 40.1-51.0 L 411) POCT-GLUCOSE [id number] 21:33:00 Test Item Value Reference Range Interpretation Comments POC-GLUCOSE METER 268 mg/dL 70-110 H TESTED AT [place] [address] ([facility] (test code = FABIOLA Tobias [place] 1538) [address] POCT-GLUCOSE [id number] 17:36:00 Test Item Value Reference Range Interpretation Comments POC-GLUCOSE METER 131 mg/dL 70-110 H TESTED AT [place] [address] ([facility] ([facility] = [facility] [place] 1538) [address] HEMOGLOBIN AND [id number] 17:09:00 Test Item Value Reference Range Interpretation Comments HEMOGLOBIN (BEAKER) (test code = 9.1 GM/DL 13.7-17.5 L 410) HEMATOCRIT (BEAKER) (test code = 27.0 % 40.1-51.0 L 411) POCT-GLUCOSE [id number] 11:29:00 Test Item Value Reference Range Interpretation Comments POC-GLUCOSE METER 243 mg/dL 70-110 H TESTED AT [place] [address] (BEAKER) (test code = [place] [address]) [id number] BASIC METABOLIC [id number] 04:05:00 Test Item Value Reference Range Interpretation Comments SODIUM (BEAKER) 136 meq/L 136-145 (test code = 381) POTASSIUM (BEAKER) 3.8 meq/L 3.5-5.1 (test code = 379) CHLORIDE (BEAKER) 107 meq/L 98-107 (test code = 382) CO2 (BEAKER) (test 24 meq/L 22-29 code = 355) BLOOD UREA NITROGEN 11 mg/dL 7-21 (BEAKER) (test code = 354) CREATININE (BEAKER) 0.78 mg/dL 0.57-1.25 (test code = 358) GLUCOSE RANDOM 116 mg/dL 70-105 H (BEAKER) (test code = 652) CALCIUM (BEAKER) 7.8 mg/dL 8.4-10.2 L (test code = 697) EGFR (BEAKER) (test 96 mL/min/1.73 ESTIMA RIGOBERTO GFR IS code = 1092) sq m NOT ACCURATE CREATININE CLEARANCE IN PREDICTING GLOMERULAR FILTRATION RATE . ESTIMATED GFR I S NOT APPLICABLE FOR DIALYSIS PATIEN TS. [id number] 03:52:00 Test Item Value Reference Range Interpretation Comments PHOSPHORUS (BEAKER) (test code = 3.5 mg/dL 2.3-4.7 604) [id number] 03:52:00 Test Item Value Reference Range Interpretation Comments MAGNESIUM (BEAKER) (test code = 1.6 mg/dL 1.6-2.6 627) CBC W/PLT COUNT & AUTO [id number] 03:42:00 Test Item Value Reference Range Interpretation Comments WHITE BLOOD CELL COUNT (BEAKER) 6.7 K/ L 3.5-10.5 (test code = 775) RED BLOOD CELL COUNT (BEAKER) 2.91 M/ L 4.63-6.08 L (test code = 761) HEMOGLOBIN (BEAKER) (test code = 8.7 GM/DL 13.7-17.5 L 410) HEMATOCRIT (BEAKER) (test code = 25.8 % 40.1-51.0 L 411) MEAN CORPUSCULAR VOLUME (BEAKER) 88.7 fL 79.0-92.2 (test code = 753) MEAN CORPUSCULAR HEMOGLOBIN 29.9 pg 25.7-32.2 (BEAKER) (test code = 751) MEAN CORPUSCULAR HEMOGLOBIN CONC 33.7 GM/DL 32.3-36.5 (BEAKER) (test code = 752) RED CELL DISTRIBUTION WIDTH 15.9 % 11.6-14.4 H (BEAKER) (test code = 412) PLATELET COUNT (BEAKER) (test 120 K/CU MM 150-450 L code = 756) MEAN PLATELET VOLUME (BEAKER) 10.0 fL 9.4-12.4 (test code = 754) NUCLEATED RED BLOOD CELLS 0 /100 WBC 0-0 (BEAKER) (test code = 413) NEUTROPHILS RELATIVE PERCENT 66 % (BEAKER) (test code = 429) LYMPHOCYTES RELATIVE PERCENT 15 % (BEAKER) (test code = 430) MONOCYTES RELATIVE PERCENT 9 % (BEAKER) (test code = 431) EOSINOPHILS RELATIVE PERCENT 10 % (BEAKER) (test code = 432) BASOPHILS RELATIVE PERCENT 0 % (BEAKER) (test code = 437) NEUTROPHILS ABSOLUTE COUNT 4.39 K/ L 1.78-5.38 (BEAKER) (test code = 670) LYMPHOCYTES ABSOLUTE COUNT 1.03 K/ L 1.32-3.57 L (BEAKER) (test code = 414) MONOCYTES ABSOLUTE COUNT (BEAKER) 0.57 K/ L 0.30-0.82 (test code = 415) EOSINOPHILS ABSOLUTE COUNT 0.64 K/ L 0.04-0.54 H (BEAKER) (test code = 416) BASOPHILS ABSOLUTE COUNT (BEAKER) 0.03 K/ L 0.01-0.08 (test code = 417) IMMATURE GRANULOCYTES-RELATIVE 1 % 0-1 PERCENT (BEAKER) (test code = 2801) POCT-GLUCOSE [id number] 23:56:00 Test Item Value Reference Range Interpretation Comments POC-GLUCOSE METER 149 mg/dL 70-110 H TESTED AT [facility] 6720 (BEAKER) (test code = [place] 1538) [address] HEMOGLOBIN AND [id number] 23:48:00 Test Item Value Reference Range Interpretation Comments HEMOGLOBIN (BEAKER) (test code = 8.3 GM/DL 13.7-17.5 L 410) HEMATOCRIT (BEAKER) (test code = 24.7 % 40.1-51.0 L 411) POCT-GLUCOSE [id number] 18:37:00 Test Item Value Reference Range Interpretation Comments POC-GLUCOSE METER 149 mg/dL 70-110 H TESTED AT [facility] 6720 (BEAKER) (test code = FABIOL[place] Tobias [place] 1538) [address] HEMOGLOBIN AND [id number] 14:27:00 Test Item Value Reference Range Interpretation Comments HEMOGLOBIN (BEAKER) (test code = 9.0 GM/DL 13.7-17.5 L 410) HEMATOCRIT (BEAKER) (test code = 27.0 % 40.1-51.0 L 411) POCT-GLUCOSE [id number] 12:21:00 Test Item Value Reference Range Interpretation Comments POC-GLUCOSE METER 122 mg/dL 70-110 H TESTED AT [facility] 6720 (BEAKER) (test code = [place] 1538) [address] BASIC METABOLIC [id number] 04:49:00 Test Item Value Reference Range Interpretation Comments SODIUM (BEAKER) 136 meq/L 136-145 (test code = 381) POTASSIUM (BEAKER) 3.7 meq/L 3.5-5.1 (test code = 379) CHLORIDE (BEAKER) 109 meq/L 98-107 H (test code = 382) CO2 (BEAKER) (test 21 meq/L 22-29 L code = 355) BLOOD UREA NITROGEN 14 mg/dL 7-21 (BEAKER) (test code = 354) CREATININE (BEAKER) 0.77 mg/dL 0.57-1.25 (test code = 358) GLUCOSE RANDOM 134 mg/dL 70-105 H (BEAKER) (test code = 652) CALCIUM (BEAKER) 7.6 mg/dL 8.4-10.2 L (test code = 697) EGFR (BEAKER) (test 97 mL/min/1.73 ESTIMA RIGOBERTO GFR IS code = 1092) sq m NOT ACCURATE CREATININE CLEARANCE IN PREDICTING GLOMERULAR FILTRATION RATE . ESTIMATED GFR I S NOT APPLICABLE FOR DIALYSIS PATIEN TS. [id number] 04:43:00 Test Item Value Reference Range Interpretation Comments MAGNESIUM (BEAKER) (test code = 1.5 mg/dL 1.6-2.6 L 627) [id number] 04:43:00 Test Item Value Reference Range Interpretation Comments PHOSPHORUS (BEAKER) (test code = 3.4 mg/dL 2.3-4.7 604) CBC W/PLT COUNT & AUTO [id number] 04:16:00 Test Item Value Reference Range Interpretation Comments WHITE BLOOD CELL COUNT 5.2 K/ L 3.5-10.5 (BEAKER) (test code = 775) RED BLOOD CELL COUNT 2.25 M/ L 4.63-6.08 L (BEAKER) (test code = 761) HEMOGLOBIN (BEAKER) 6.7 GM/DL 13.7-17.5 L (test code = 410) HEMATOCRIT (BEAKER) 20.9 % 40.1-51.0 L (test code = 411) MEAN CORPUSCULAR 92.9 fL 79.0-92.2 H Discordant MCV VOLUME (BEAKER) (test result s compared to code = 753) previous result s; clinical correl ation required. MEAN CORPUSCULAR 29.8 pg 25.7-32.2 HEMOGLOBIN (BEAKER) (test code = 751) MEAN CORPUSCULAR 32.1 GM/DL 32.3-36.5 L HEMOGLOBIN CONC (BEAKER) (test code = 752) RED CELL DISTRIBUTION 16.0 % 11.6-14.4 H WIDTH (BEAKER) (test code = 412) PLATELET COUNT 92 K/CU MM 150-450 L (BEAKER) (test code = 756) MEAN PLATELET VOLUME 10.9 fL 9.4-12.4 (BEAKER) (test code = 754) NUCLEATED RED BLOOD 0 /100 WBC 0-0 CELLS (BEAKER) (test code = 413) NEUTROPHILS RELATIVE 66 % PERCENT (BEAKER) (test code = 429) LYMPHOCYTES RELATIVE 16 % PERCENT (BEAKER) (test code = 430) MONOCYTES RELATIVE 7 % PERCENT (BEAKER) (test code = 431) EOSINOPHILS RELATIVE 9 % PERCENT (BEAKER) (test code = 432) BASOPHILS RELATIVE 0 % PERCENT (BEAKER) (test code = 437) NEUTROPHILS ABSOLUTE 3.45 K/ L 1.78-5.38 COUNT (BEAKER) (test code = 670) LYMPHOCYTES ABSOLUTE 0.85 K/ L 1.32-3.57 L COUNT (BEAKER) (test code = 414) MONOCYTES ABSOLUTE 0.38 K/ L 0.30-0.82 COUNT (BEAKER) (test code = 415) EOSINOPHILS ABSOLUTE 0.47 K/ L 0.04-0.54 COUNT (BEAKER) (test code = 416) BASOPHILS ABSOLUTE 0.02 K/ L 0.01-0.08 COUNT (BEAKER) (test code = 417) IMMATURE 1 % 0-1 GRANULOCYTES-RELATIVE PERCENT (BEAKER) (test code = 2801) HEMOGLOBIN AND [id number] 23:11:00 Test Item Value Reference Range Interpretation Comments HEMOGLOBIN (BEAKER) (test code = 7.4 GM/DL 13.7-17.5 L 410) HEMATOCRIT (BEAKER) (test code = 22.0 % 40.1-51.0 L 411) POCT-GLUCOSE [id number] 22:00:00 Test Item Value Reference Range Interpretation Comments POC-GLUCOSE METER 163 mg/dL 70-110 H TESTED AT [place] [address] ([facility]) (test code = [facility] 1538) [address] POCT-GLUCOSE [id number] 17:19:00 Test Item Value Reference Range Interpretation Comments POC-GLUCOSE METER 151 mg/dL 70-110 H TESTED AT [place] [address] ([facility]) (test code = [facility] 1538) [address] HEMOGLOBIN AND [id number] 16:24:00 Test Item Value Reference Range Interpretation Comments HEMOGLOBIN (BEAKER) (test code = 8.4 GM/DL 13.7-17.5 L 410) HEMATOCRIT (BEAKER) (test code = 25.2 % 40.1-51.0 L 411) POCT-GLUCOSE [id number] 09:30:00 Test Item Value Reference Range Interpretation Comments POC-GLUCOSE METER 96 mg/dL 70-110 TESTED AT [place] [address] ([facility]) (test code = [facility] [address] 1538) CBC W/PLT COUNT & AUTO [id number] 09:10:00 Test Item Value Reference Range Interpretation Comments WHITE BLOOD CELL COUNT ([facility]) 7.4 K/ L 3.5-10.5 (test code = 775) RED BLOOD CELL COUNT ([facility]) 2.36 M/ L 4.63-6.08 L (test code = 761) HEMOGLOBIN (BEAKER) (test code = 6.8 GM/DL 13.7-17.5 L 410) HEMATOCRIT (BEAKER) (test code = 20.9 % 40.1-51.0 L 411) MEAN CORPUSCULAR VOLUME (BEAKER) 88.6 fL 79.0-92.2 (test code = 753) MEAN CORPUSCULAR HEMOGLOBIN 28.8 pg 25.7-32.2 (BEAKER) (test code = 751) MEAN CORPUSCULAR HEMOGLOBIN CONC 32.5 GM/DL 32.3-36.5 (BEAKER) (test code = 752) RED CELL DISTRIBUTION WIDTH 16.3 % 11.6-14.4 H (BEAKER) (test code = 412) PLATELET COUNT (BEAKER) (test 128 K/CU MM 150-450 L code = 756) MEAN PLATELET VOLUME (BEAKER) 9.5 fL 9.4-12.4 (test code = 754) NUCLEATED RED BLOOD CELLS 0 /100 WBC 0-0 (BEAKER) (test code = 413) NEUTROPHILS RELATIVE PERCENT 72 % (BEAKER) (test code = 429) LYMPHOCYTES RELATIVE PERCENT 11 % (BEAKER) (test code = 430) MONOCYTES RELATIVE PERCENT 6 % (BEAKER) (test code = 431) EOSINOPHILS RELATIVE PERCENT 10 % (BEAKER) (test code = 432) BASOPHILS RELATIVE PERCENT 0 % (BEAKER) (test code = 437) NEUTROPHILS ABSOLUTE COUNT 5.32 K/ L 1.78-5.38 (BEAKER) (test code = 670) LYMPHOCYTES ABSOLUTE COUNT 0.80 K/ L 1.32-3.57 L (BEAKER) (test code = 414) MONOCYTES ABSOLUTE COUNT (BEAKER) 0.47 K/ L 0.30-0.82 (test code = 415) EOSINOPHILS ABSOLUTE COUNT 0.74 K/ L 0.04-0.54 H (BEAKER) (test code = 416) BASOPHILS ABSOLUTE COUNT (BEAKER) 0.03 K/ L 0.01-0.08 (test code = 417) IMMATURE GRANULOCYTES-RELATIVE 1 % 0-1 PERCENT (BEAKER) (test code = 2801) BASIC METABOLIC [id number] 07:12:00 Test Item Value Reference Range Interpretation Comments SODIUM (BEAKER) 136 meq/L 136-145 (test code = 381) POTASSIUM (BEAKER) 3.7 meq/L 3.5-5.1 Specimen slightly (test code = 379) hemolyzed CHLORIDE (BEAKER) 107 meq/L 98-107 (test code = 382) CO2 (BEAKER) (test 22 meq/L 22-29 code = 355) BLOOD UREA NITROGEN 13 mg/dL 7-21 (BEAKER) (test code = 354) CREATININE (BEAKER) 0.73 mg/dL 0.57-1.25 Specimen slightly (test code = 358) hemolyzed GLUCOSE RANDOM 87 mg/dL 70-105 (BEAKER) (test code = 652) CALCIUM (BEAKER) 7.5 mg/dL 8.4-10.2 L (test code = 697) EGFR (BEAKER) (test 103 mL/min/1.73 ESTIM ATED GFR IS code = 1092) sq m NOT ACCURATE CREATININE CLEARANCE IN PREDICTING GLOMERULAR FILTRATION RATE . ESTIMATED GFR I S NOT APPLICABLE FOR DIALYSIS PATIEN TS. [id number] 07:10:00 Test Item Value Reference Range Interpretation Comments MAGNESIUM (BEAKER) 1.7 mg/dL 1.6-2.6 Specimen slightly (test code = 627) hemolyzed [id number] 07:10:00 Test Item Value Reference Range Interpretation Comments PHOSPHORUS (BEAKER) 2.0 mg/dL 2.3-4.7 L Specimen slightly (test code = 604) hemolyzed [id number] 06:24:00 Test Item Value Reference Range Interpretation Comments PROTIME (BEAKER) (test code = 15.4 seconds 11.7-14.7 H 759) INR (BEAKER) (test code = 370) 1.2 <=5.9 PARTIAL THROMBOPLASTIN TIME 28.3 seconds 22.5-36.0 (BEAKER) (test code = 760) RECOMMENDED COUMADIN/WARFARIN INR THERAPY RANGESSTANDARD DOSE: 2.0 - 3.0 Includes: PROPHYLAXIS forvenous thrombosis, systemic embolization; TREATMENT for venous thrombosis and/or pulmonary embolus.HIGH RISK: Target INR is 2.5-3.5 for patients with mechanical heart valves.PROTHROMBIN [id number] 06:23:00 Test Item Value Reference Range Interpretation Comments PROTIME (BEAKER) (test code = 15.4 seconds 11.7-14.7 H 759) INR (BEAKER) (test code = 370) 1.2 <=5.9 RECOMMENDED COUMADIN/WARFARIN INR THERAPY RANGESSTANDARD DOSE: 2.0 - 3.0 Includes: PROPHYLAXIS forvenous thrombosis, systemic embolization; TREATMENT for venous thrombosis and/or pulmonary embolus.HIGH RISK: Target INR is 2.5-3.5 for patients with mechanical heart valves.HEMOGLOBIN AND [id number] 23:40:00 Test Item Value Reference Range Interpretation Comments HEMOGLOBIN (BEAKER) (test code = 7.3 GM/DL 13.7-17.5 L 410) HEMATOCRIT (BEAKER) (test code = 21.7 % 40.1-51.0 L 411) POCT-GLUCOSE [id number] 23:37:00 Test Item Value Reference Range Interpretation Comments POC-GLUCOSE METER 114 mg/dL 70-110 H TESTED AT [facility] 67 [facility] (test code = FABIOLA Tobias [facility] 1538) [address] HEMOGLOBIN AND [id number] 17:46:00 Test Item Value Reference Range Interpretation Comments HEMOGLOBIN (BEAKER) (test code = 7.2 GM/DL 13.7-17.5 L 410) HEMATOCRIT (BEAKER) (test code = 22.0 % 40.1-51.0 L 411) POCT-GLUCOSE [id number] 17:29:00 Test Item Value Reference Range Interpretation Comments POC-GLUCOSE METER 146 mg/dL 70-110 H TESTED AT [place] [id number] ([facility]) (test code = [facility] 1538) [address] PROTHROMBIN [id number] 12:38:00 Test Item Value Reference Range Interpretation Comments PROTIME (BEAKER) (test code = 17.0 seconds 11.7-14.7 H 759) INR (BEAKER) (test code = 370) 1.4 <=5.9 RECOMMENDED COUMADIN/WARFARIN INR THERAPY RANGESSTANDARD DOSE: 2.0 - 3.0 Includes: PROPHYLAXIS forvenous thrombosis, systemic embolization; TREATMENT for venous thrombosis and/or pulmonary embolus.HIGH RISK: Target INR is 2.5-3.5 for patients with mechanical heart valves.[id number] 12:38:00 Test Item Value Reference Range Interpretation Comments PROTIME (BEAKER) (test code = 17.0 seconds 11.7-14.7 H 759) INR (BEAKER) (test code = 370) 1.4 <=5.9 PARTIAL THROMBOPLASTIN TIME 31.4 seconds 22.5-36.0 (BEAKER) (test code = 760) RECOMMENDED COUMADIN/WARFARIN INR THERAPY RANGESSTANDARD DOSE: 2.0 - 3.0 Includes: PROPHYLAXIS forvenous thrombosis, systemic embolization; TREATMENT for venous thrombosis and/or pulmonary embolus.HIGH RISK: Target INR is 2.5-3.5 for patients with mechanical heart valves.HEMOGLOBIN AND [id number] 12:21:00 Test Item Value Reference Range Interpretation Comments HEMOGLOBIN (BEAKER) (test code = 7.1 GM/DL 13.7-17.5 L 410) HEMATOCRIT (BEAKER) (test code = 21.7 % 40.1-51.0 L 411) POCT-GLUCOSE [id number] 12:01:00 Test Item Value Reference Range Interpretation Comments POC-GLUCOSE METER 147 mg/dL 70-110 H TESTED AT [facility] 6720 (BEAKER) (test code = [place] 1538) [address] [id number] 09:30:00 Test Item Value Reference Range Interpretation Comments PHOSPHORUS (BEAKER) (test code = 2.3 mg/dL 2.3-4.7 604) [id number] 09:30:00 Test Item Value Reference Range Interpretation Comments MAGNESIUM (BEAKER) (test code = 1.8 mg/dL 1.6-2.6 627) BASIC METABOLIC [id number] 09:30:00 Test Item Value Reference Range Interpretation Comments SODIUM (BEAKER) 140 meq/L 136-145 (test code = 381) POTASSIUM (BEAKER) 4.0 meq/L 3.5-5.1 (test code = 379) CHLORIDE (BEAKER) 112 meq/L 98-107 H (test code = 382) CO2 (BEAKER) (test 25 meq/L 22-29 code = 355) BLOOD UREA NITROGEN 20 mg/dL 7-21 (BEAKER) (test code = 354) CREATININE (BEAKER) 0.82 mg/dL 0.57-1.25 (test code = 358) GLUCOSE RANDOM 126 mg/dL 70-105 H (BEAKER) (test code = 652) CALCIUM (BEAKER) 7.4 mg/dL 8.4-10.2 L (test code = 697) EGFR (BEAKER) (test 90 mL/min/1.73 ESTIMA RIGOBERTO GFR IS code = 1092) sq m NOT ACCURATE CREATININE CLEARANCE IN PREDICTING GLOMERULAR FILTRATION RATE . ESTIMATED GFR I S NOT APPLICABLE FOR DIALYSIS PATIEN TS. CBC W/PLT COUNT & AUTO [id number] 08:40:00 Test Item Value Reference Range Interpretation Comments WHITE BLOOD CELL COUNT (BEAKER) 9.3 K/ L 3.5-10.5 (test code = 775) RED BLOOD CELL COUNT (BEAKER) 2.56 M/ L 4.63-6.08 L (test code = 761) HEMOGLOBIN (BEAKER) (test code = 7.4 GM/DL 13.7-17.5 L 410) HEMATOCRIT (BEAKER) (test code = 23.1 % 40.1-51.0 L 411) MEAN CORPUSCULAR VOLUME (BEAKER) 90.2 fL 79.0-92.2 (test code = 753) MEAN CORPUSCULAR HEMOGLOBIN 28.9 pg 25.7-32.2 (BEAKER) (test code = 751) MEAN CORPUSCULAR HEMOGLOBIN CONC 32.0 GM/DL 32.3-36.5 L (BEAKER) (test code = 752) RED CELL DISTRIBUTION WIDTH 16.4 % 11.6-14.4 H (BEAKER) (test code = 412) PLATELET COUNT (BEAKER) (test 144 K/CU MM 150-450 L code = 756) MEAN PLATELET VOLUME (BEAKER) 10.2 fL 9.4-12.4 (test code = 754) NUCLEATED RED BLOOD CELLS 0 /100 WBC 0-0 (BEAKER) (test code = 413) NEUTROPHILS RELATIVE PERCENT 73 % (BEAKER) (test code = 429) LYMPHOCYTES RELATIVE PERCENT 9 % (BEAKER) (test code = 430) MONOCYTES RELATIVE PERCENT 8 % (BEAKER) (test code = 431) EOSINOPHILS RELATIVE PERCENT 8 % (BEAKER) (test code = 432) BASOPHILS RELATIVE PERCENT 1 % (BEAKER) (test code = 437) NEUTROPHILS ABSOLUTE COUNT 6.84 K/ L 1.78-5.38 H (BEAKER) (test code = 670) LYMPHOCYTES ABSOLUTE COUNT 0.84 K/ L 1.32-3.57 L (BEAKER) (test code = 414) MONOCYTES ABSOLUTE COUNT (BEAKER) 0.70 K/ L 0.30-0.82 (test code = 415) EOSINOPHILS ABSOLUTE COUNT 0.78 K/ L 0.04-0.54 H (BEAKER) (test code = 416) BASOPHILS ABSOLUTE COUNT (BEAKER) 0.08 K/ L 0.01-0.08 (test code = 417) IMMATURE GRANULOCYTES-RELATIVE 1 % 0-1 PERCENT (BEAKER) (test code = 2801) POCT-GLUCOSE [id number] 07:17:00 Test Item Value Reference Range Interpretation Comments POC-GLUCOSE METER 151 mg/dL 70-110 H TESTED AT [facility] 67 [facility] (test code = [facility] [place] 1538) [id number] POCT-GLUCOSE [id number] 02:45:00 Test Item Value Reference Range Interpretation Comments POC-GLUCOSE METER 164 mg/dL 70-110 H TESTED AT [place] [address] ([facility]) (test code = [facility] [place] 1538) [address] HEMOGLOBIN AND [id number] 01:50:00 Test Item Value Reference Range Interpretation Comments HEMOGLOBIN (BEAKER) (test code = 6.3 GM/DL 13.7-17.5 L 410) HEMATOCRIT (BEAKER) (test code = 19.7 % 40.1-51.0 L 411) HEMOGLOBIN AND [id number] 20:50:00 Test Item Value Reference Range Interpretation Comments HEMOGLOBIN (BEAKER) (test code = 7.1 GM/DL 13.7-17.5 L 410) HEMATOCRIT (BEAKER) (test code = 22.0 % 40.1-51.0 L 411) [id number] 19:35:00 Test Item Value Reference Range Interpretation Comments PROCALCITONIN (BEAKER) (test code = < ng/mL <0.05 3036) SEPSIS RISK (ng/mL)Low: 0.05-0.50Intermediate: 0.51-2.00High: >=2.01LACTIC ACID, VENOUS, WHOLE [id number] 17:58:00 Test Item Value Reference Range Interpretation Comments LACTATE BLOOD VENOUS (2) (BEAKER) 1.1 mmol/L 0.5-2.2 (test code = 2872) Effective 06/19/2015: Units/Reference Range ChangeNew: 0.5-2.2 mmol/L Previous: 5-20 mg/dLRAD, CHEST, 1 VIEW, NON [id number] 17:31:00Reason for exam:- >SOBShould this be performed at the bedside?->YesFINAL REPORT [...] Bettye Dialloeport Verified Date/Time: 04/15/201717:31:41 Reading Location: [facility] Radiology Reading Room C METABOLIC [id number] 17:17:00 Test Item Value Reference Range Interpretation Comments SODIUM (BEAKER) 141 meq/L 136-145 (test code = 381) POTASSIUM (BEAKER) 4.0 meq/L 3.5-5.1 (test code = 379) CHLORIDE (BEAKER) 112 meq/L 98-107 H (test code = 382) CO2 (BEAKER) (test 23 meq/L 22-29 code = 355) BLOOD UREA NITROGEN 25 mg/dL 7-21 H (BEAKER) (test code = 354) CREATININE (BEAKER) 0.81 mg/dL 0.57-1.25 (test code = 358) GLUCOSE RANDOM 134 mg/dL 70-105 H (BEAKER) (test code = 652) CALCIUM (BEAKER) 7.4 mg/dL 8.4-10.2 L (test code = 697) EGFR (BEAKER) (test 91 mL/min/1.73 ESTIMA RIGOBERTO GFR IS code = 1092) sq m NOT ACCURATE CREATININE CLEARANCE IN PREDICTING GLOMERULAR FILTRATION RATE . ESTIMATED GFR I S NOT APPLICABLE FOR DIALYSIS PATIEN TS. HEPATIC FUNCTION [id number] 17:04:00 Test Item Value Reference Range Interpretation Comments TOTAL PROTEIN (BEAKER) (test code = 4.5 gm/dL 6.0-8.3 L 770) ALBUMIN (BEAKER) (test code = 1145) 2.8 g/dL 3.5-5.0 L BILIRUBIN TOTAL (BEAKER) (test code 0.7 mg/dL 0.2-1.2 = 377) BILIRUBIN DIRECT (BEAKER) (test 0.3 mg/dL 0.1-0.5 code = 706) ALKALINE PHOSPHATASE (BEAKER) (test 34 U/L 40-150 L code = 346) AST (SGOT) (BEAKER) (test code = 16 U/L 5-34 353) ALT (SGPT) (BEAKER) (test code = 11 U/L 6-55 347) [id number] 17:04:00 Test Item Value Reference Range Interpretation Comments PHOSPHORUS (BEAKER) (test code = 2.4 mg/dL 2.3-4.7 604) [id number] 17:04:00 Test Item Value Reference Range Interpretation Comments MAGNESIUM (BEAKER) (test code = 1.8 mg/dL 1.6-2.6 627) PROTHROMBIN [id number] 16:47:00 Test Item Value Reference Range Interpretation Comments PROTIME (BEAKER) (test code = 16.8 seconds 11.7-14.7 H 759) INR (BEAKER) (test code = 370) 1.4 <=5.9 RECOMMENDED COUMADIN/WARFARIN INR THERAPY RANGESSTANDARD DOSE: 2.0 - 3.0 Includes: PROPHYLAXIS forvenous thrombosis, systemic embolization; TREATMENT for venous thrombosis and/or pulmonary embolus.HIGH RISK: Target INR is 2.5-3.5 for patients with mechanical heart valves.CBC W/PLT COUNT & AUTO DIFFERENTIAL 2017-04-15 16:41:00 Test Item Value Reference Range Interpretation Comments WHITE BLOOD CELL COUNT (BEAKER) 10.3 K/ L 3.5-10.5 (test code = 775) RED BLOOD CELL COUNT (BEAKER) 2.70 M/ L 4.63-6.08 L (test code = 761) HEMOGLOBIN (BEAKER) (test code = 7.4 GM/DL 13.7-17.5 L 410) HEMATOCRIT (BEAKER) (test code = 23.2 % 40.1-51.0 L 411) MEAN CORPUSCULAR VOLUME (BEAKER) 85.9 fL 79.0-92.2 (test code = 753) MEAN CORPUSCULAR HEMOGLOBIN 27.4 pg 25.7-32.2 (BEAKER) (test code = 751) MEAN CORPUSCULAR HEMOGLOBIN CONC 31.9 GM/DL 32.3-36.5 L (BEAKER) (test code = 752) RED CELL DISTRIBUTION WIDTH 15.9 % 11.6-14.4 H (BEAKER) (test code = 412) PLATELET COUNT (BEAKER) (test 155 K/CU MM 150-450 code = 756) MEAN PLATELET VOLUME (BEAKER) 10.1 fL 9.4-12.4 (test code = 754) NUCLEATED RED BLOOD CELLS 0 /100 WBC 0-0 (BEAKER) (test code = 413) NEUTROPHILS RELATIVE PERCENT 77 % (BEAKER) (test code = 429) LYMPHOCYTES RELATIVE PERCENT 10 % (BEAKER) (test code = 430) MONOCYTES RELATIVE PERCENT 7 % (BEAKER) (test code = 431) EOSINOPHILS RELATIVE PERCENT 4 % (BEAKER) (test code = 432) BASOPHILS RELATIVE PERCENT 1 % (BEAKER) (test code = 437) NEUTROPHILS ABSOLUTE COUNT 8.00 K/ L 1.78-5.38 H (BEAKER) (test code = 670) LYMPHOCYTES ABSOLUTE COUNT 1.01 K/ L 1.32-3.57 L (BEAKER) (test code = 414) MONOCYTES ABSOLUTE COUNT (BEAKER) 0.73 K/ L 0.30-0.82 (test code = 415) EOSINOPHILS ABSOLUTE COUNT 0.45 K/ L 0.04-0.54 (BEAKER) (test code = 416) BASOPHILS ABSOLUTE COUNT (BEAKER) 0.07 K/ L 0.01-0.08 (test code = 417) IMMATURE GRANULOCYTES-RELATIVE 1 % 0-1 PERCENT (BEAKER) (test code = 2801) HEMOGLOBIN AND [id number] 16:40:00 Test Item Value Reference Range Interpretation Comments HEMOGLOBIN (BEAKER) (test code = 7.4 GM/DL 13.7-17.5 L 410) HEMATOCRIT (BEAKER) (test code = 23.2 % 40.1-51.0 L 411)
[2020-04-07 14:29] LABS: Absolute Lymphocytes (CBC) 1.3 K/uL (0.7-4.9); Basophils % 0.9 % (0-1.3); Hematocrit 26.8 % (39.6-49.0); Lymphocytes % 15.1 % (15.3-44.8); MPV 7.8 fL (7.6-11.3); RBC Red Blood Cell Count 3.23 M/uL (4.33-5.43)
[2020-04-07 14:33] LABS: Protime INR 1.09
[2020-04-07 14:40] LABS: Albumin 3.6 g/dL (3.4-5.0); Bilirubin Direct 0.1 mg/dL (0-0.2); Bilirubin Total 0.4 mg/dL (0.2-1.0); Potassium 4.5 mmol/L (3.5-5.1); Protein, Total 7.1 g/dL (6.4-8.2)
--- NOTE | 2020-04-07 15:03 | RAD REPORT ---
EXAM DESCRIPTION: CT - Abdomen Pelvis W Contrast - 04/07/2020 2:44 pm CLINICAL HISTORY: rectal bleeding, hx of diverticulitis COMPARISON: Abdomen Pelvis W Contrast dated 11/16/2017 TECHNIQUE: Biphasic, helical CT imaging of the abdomen and pelvis was performed following 100 ml non -ionic IV contrast. No oral contrast given. All CT scans are performed using dose optimization technique as appropriate and may include automated exposure control or mA/KV adjustment according to patient size. FINDINGS: Lung base fibrotic stranding in the left lung base bronchiectasis changes match the 2018 s tudy. No pericardial effusion. The liver, spleen, and pancreas show no suspicious findings. Cholecystectomy clips are present. Bilia ry tree dilatation is present but within normal limits for a post cholecystectomy patient. Symmetric renal function is seen with no hydronephrosis or suspicious renal mass. No pyelonephritis o r acute parenchymal process. A large exophytic 6 centimeter cyst is present left kidney. Additional s maller cysts are present in the lower pole of the left kidney. No adrenal abnormalities. No urinary b ladder abnormality. Small hiatal hernia is present similar to comparison. No gastric wall thickening or mass. No dilated large or small bowel loops. There is no appendicitis. Patient has moderately severe diverticulosis wi thout diverticulitis findings. No free air, free fluid or inflammatory stranding. No mass or bulky lymphadenopathy. 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 Surgical clips are present in the lower pelvis anterior abdominal wall. Disc and bone degenerative changes are present. No acute bony finding. Aortoiliac and mesenteric vascular calcifications are present. No acute aortic finding. IMPRESSION: Contrast enhanced CT abdomen and pelvis showing no acute or emergent finding. Nonacute findings detailed in the body of the report are not substantially different from comparison.
--- NOTE | 2020-04-07 15:06 | RAD REPORT ---
EXAM DESCRIPTION: RAD - Chest Single View - 04/07/2020 2:14 pm CLINICAL HISTORY: COUGH COMPARISON: Portable November 2017 TECHNIQUE: AP portable chest image was obtained 04/07/2020 2:14 pm . FINDINGS: No focal mass or consolidation. Interstitial pattern is prominent but matches comparison. This is believed to be baseline fibrosis. Sternotomy wires are in place. Trachea is midline. Heart and vasculature are normal. No measurable pl eural effusion and no pneumothorax. No acute bony abnormality seen. No acute aortic findings suspecte d. IMPRESSION: No acute cardiopulmonary process. No significant change from comparison study.
--- NOTE | 2020-04-07 15:58 | EDPHYS ---
Physician Documentation [facility] Name: Mike Peña Age: 85 yrs Sex: Male : 1935 Arrival Date: 04/07/2020 Time: 13:10 Bed 6 Private MD: ED Physician Hasmukh Arias HPI: 04/07 13:26 This 85 yrs old Male presents to ER via EMS with complaints of Dizziness, rn cough, blood in stool. 13:26 The patient presents with lightheadedness. Onset: The symptoms/episode began/occurred 3 rn day(s) ago. Modifying factors: The symptoms are alleviated by nothing, the symptoms are aggravated by nothing. Severity of symptoms: At their worst the symptoms were mild in the emergency department the symptoms are unchanged. The patient has experienced similar episodes in the past. The patient has not recently seen a physician. Reports cough with sputum for 2-3 days, now has improved as well as mild sob. Also reports hx of diverticulitis, and has noticed some blood in stool as before. . Historical: - Allergies: 13:24 No Known Allergies; bp - Home Meds: 13:24 atorvastatin 40 mg Oral tab 1 tab once daily [Active]; gabapentin 300 mg oral cap 1 cap bp 3 times per day [Active]; midodrine 10 mg Oral tab 1 tab 3 times per day [Active]; omeprazole 40 mg Oral cpDR 1 cap once daily [Active]; magnesium oxide 400 mg Oral tab twice a day [Active]; valacyclovir 500 mg Oral tab 1 tab once daily [Active]; tamsulosin 0.4 mg Oral cp24 1 cap once daily [Active]; levothyroxine 100 mcg tab 1 tab once daily [Active]; duloxetine 60 mg Oral cpDR 1 cap nightly [Active]; Janumet 50-500 mg Oral tab 1 tab 2 times per day [Active]; - PMHx: 13:24 Cancer; carcinoma; Diabetes - NIDDM; Diverticulitis; bp - Immunization history:: Adult Immunizations up to date. - Social history:: Smoking status: unknown. - Family history:: not pertinent. - Hospitalizations: : No recent hospitalization is reported. ROS: 13:26 Constitutional: Negative for fever, chills, and weight loss, Eyes: Negative for injury, rn pain, redness, and discharge, Neck: Negative for injury, pain, and swelling, Cardiovascular: Negative for chest pain, palpitations, and edema, Respiratory: Negative for wheezing, and pleuritic chest pain, Abdomen/GI: + blood in stool, mild abd pain Back: Negative for injury and pain, MS/Extremity: Negative for injury and deformity, Skin: Negative for injury, rash, and discoloration, Neuro: Negative for headache, numbness, tingling, and seizure. Exam: 13:26 Constitutional: This is a well developed, well nourished patient who is awake, alert, rn and in no acute distress. Head/Face: Normocephalic, atraumatic. Cardiovascular: Regular rate and rhythm. No pulse deficits. Respiratory: No increased work of breathing, no retractions or nasal flaring. Abdomen/GI: soft, non-tender Skin: Warm, dry MS/ Extremity: Pulses equal, no cyanosis. Neurovascular intact. Full, normal range of motion. Equal circumference. Neuro: Awake and alert, GCS 15 Vital Signs: 13:13 BP 140 / 70; Pulse 85; Resp 16; Temp 98; Pulse Ox 98% ; bp 14:14 BP 126 / 67; Pulse 80; Resp 11; Pulse Ox 99% ; bp 15:30 BP 101 / 74; Pulse 67; Resp 13; Pulse Ox 100% ; bp 17:08 BP 123 / 79; Pulse 79; Resp 17; Pulse Ox 100% ; bp MDM: 13:13 Patient medically screened. rn 15:52 Differential diagnosis: GI bleed, hypovolemia, idiopathic dizziness, pneumonia, rn COVID-19, viral syndrome. Data reviewed: vital signs, nurses notes, lab test result(s), radiologic studies, CT scan, plain films, and as a result, I will admit patient. Counseling: I had a detailed discussion with the patient and/or guardian regarding: the historical points, exam findings, and any diagnostic results supporting the discharge/admit diagnosis, lab results, radiology results, the need for further work-up and treatment in the hospital, the need to transfer to another facility, [facility] does not immediately have the required specialist. ED course: Pt with hemoglobin 8, stable vitals, but continues to pass blood in stool, afebrile with no acute findings on CXR. CT without acute findings. Told patient needs to be transferred to [place] since we do not have GI available here. Pt spoke with son and wants to go home. His reasoning for this is that last time his bleeding resolved when got transferred to [place] and went for nothing. also states has severe dementia and he must help her with her care. UNderstands risks of leaving and not being admitted/transferred, still would like to go home. Reports has home health aide at home and son will be staying with him, told him to come back immediately if continues or worsens. . 04/07 13:22 Order name: CBC with Diff; Complete Time: 14:41 rn 04/07 13:22 Order name: Basic Metabolic Panel; Complete Time: 14:41 rn 04/07 13:22 Order name: PT-INR; Complete Time: 14:41 rn 04/07 13:22 Order name: Ptt, Activated; Complete Time: 14:41 rn 04/07 13:24 Order name: LFT's; Complete Time: 14:41 rn 04/07 13:22 Order name: XRAY Chest (1 view); Complete Time: 15:08 rn 04/07 13:22 Order name: IV Start; Complete Time: 14:13 rn 04/07 13:22 Order name: CT Abd/Pelvis - IV Contrast Only; Complete Time: 15:08 rn 04/07 13:24 Order name: EKG; Complete Time: 13:25 rn 04/07 13:24 Order name: EKG - Nurse/Tech; Complete Time: 15:30 rn 04/07 14:40 Order name: SARS-COV-2 RT PCR; Complete Time: 14:41 EDMS 04/07 15:33 Order name: CREATININE WHOLE BLOOD; Complete Time: 15:35 EDMS Administered Medications: No medications were administered Disposition: 04/07/20 15:57 Discharged to Home. Impression: Lower gastrointestinal bleed, Anemia, unspecified. - Condition is Stable. - Discharge Instructions: Anemia, Nonspecific, Gastrointestinal Bleeding. - Medication Reconciliation Form, Thank You Letter, Antibiotic Education, Prescription Opioid Use form. - Follow up: Sang Lyons MD; When: Tomorrow; Reason: Recheck today's complaints, Re-evaluation by your physician. - Problem is new. - Symptoms have improved. Signatures: Dispatcher [employer] EDMS Hasmukh Arias MD MD rn Peltier, Brian RN RN bp Corrections: (The following items were deleted from the chart) 14:03 13:24 CORONAVIRUS+MRROSA MARIA.BRZ ordered. EDMS EDMS 17:09 15:57 04/07/2020 15:57 Discharged to Home. Impression: Lower gastrointestinal bleed; bp Anemia, unspecified. Condition is Stable. Forms are Medication Reconciliation Form, Thank You Letter, Antibiotic Education, Prescription Opioid Use. Follow up: Sang Lyons; When: Tomorrow; Reason: Recheck today's complaints, Re-evaluation by your physician. Problem is new. Symptoms have improved. rn
--- NOTE | 2020-04-07 15:58 | ER ---
Nurse's Notes [facility] Name: Mike Peña Age: 85 yrs Sex: Male : 1935 Arrival Date: 04/07/2020 Time: 13:10 Bed 6 Private MD: Diagnosis: Lower gastrointestinal bleed;Anemia, unspecified Presentation: 04/07 13:13 Chief complaint: EMS states: DIZZINESS WITHOUT LOC OR ATAXIA. Coronavirus screen: At bp this time, the client does not indicate any symptoms associated with coronavirus-19. Ebola Screen: No symptoms or risks identified at this time. Initial Sepsis Screen: Does the patient meet any 2 criteria? No. Patient's initial sepsis screen is negative. Does the patient have a suspected source of infection? No. Patient's initial sepsis screen is negative. Risk Assessment: Do you want to hurt yourself or someone else? Patient reports no desire to harm self or others. Onset of symptoms is unknown. Care prior to arrival: Glucose check: 212. 13:13 Method Of Arrival: EMS: [facility] bp 13:13 Acuity: BEKAH 3 bp Triage Assessment: 13:20 General: Appears distressed, uncomfortable, Behavior is cooperative, appropriate for bp age. 13:20 Pain: Denies pain. EENT: No deficits noted. Neuro: Level of Consciousness is awake, bp alert, obeys commands, Oriented to person, place, time, situation. Cardiovascular: No deficits noted. Respiratory: No deficits noted. GI: No signs and/or symptoms were reported involving the gastrointestinal system. : No signs and/or symptoms were reported regarding the genitourinary system. Derm: No deficits noted. Musculoskeletal: No deficits noted. Historical: - Allergies: 13:24 No Known Allergies; bp - Home Meds: 13:24 atorvastatin 40 mg Oral tab 1 tab once daily [Active]; gabapentin 300 mg oral cap 1 cap bp 3 times per day [Active]; midodrine 10 mg Oral tab 1 tab 3 times per day [Active]; omeprazole 40 mg Oral cpDR 1 cap once daily [Active]; magnesium oxide 400 mg Oral tab twice a day [Active]; valacyclovir 500 mg Oral tab 1 tab once daily [Active]; tamsulosin 0.4 mg Oral cp24 1 cap once daily [Active]; levothyroxine 100 mcg tab 1 tab once daily [Active]; duloxetine 60 mg Oral cpDR 1 cap nightly [Active]; Janumet 50-500 mg Oral tab 1 tab 2 times per day [Active]; - PMHx: 13:24 Cancer; carcinoma; Diabetes - NIDDM; Diverticulitis; bp - Immunization history:: Adult Immunizations up to date. - Social history:: Smoking status: unknown. - Family history:: not pertinent. - Hospitalizations: : No recent hospitalization is reported. Screenin:29 Abuse screen: Denies threats or abuse. Denies injuries from another. Nutritional bp screening: No deficits noted. Tuberculosis screening: No symptoms or risk factors identified. Fall Risk None identified. Assessment: 13:20 General: SEE TRIAGE NOTE. bp 14:14 Reassessment: Patient appears in no apparent distress at this time. No changes from bp previously documented assessment. Patient and/or family updated on plan of care and expected duration. Pain level reassessed. Patient is alert, oriented x 3, equal unlabored respirations, skin warm/dry/pink. PT TO CT. 15:34 Reassessment: No changes from previously documented assessment. Patient and/or family bp updated on plan of care and expected duration. Pain level reassessed. Patient is alert, oriented x 3, equal unlabored respirations, skin warm/dry/pink. ALL CURRENT ORDERS COMPLETED. DISPO PENDING. 17:08 Reassessment: PT D/C HOME AMBULATORY, DX WITH LOWER GIB. bp Vital Signs: 13:13 BP 140 / 70; Pulse 85; Resp 16; Temp 98; Pulse Ox 98% ; bp 14:14 BP 126 / 67; Pulse 80; Resp 11; Pulse Ox 99% ; bp 15:30 BP 101 / 74; Pulse 67; Resp 13; Pulse Ox 100% ; bp 17:08 BP 123 / 79; Pulse 79; Resp 17; Pulse Ox 100% ; bp ED Course: 13:10 Patient arrived in ED. bp 13:13 Hasmukh Arias MD is Attending Physician. rn 13:13 Jairo Willingham, BIMAL is Primary Nurse. bp 13:20 Triage completed. bp 13:27 Arm band placed on. bp 13:29 Patient has correct armband on for positive identification. Bed in low position. Call bp light in reach. Side rails up X2. 14:10 Inserted saline lock: 20 gauge in right upper arm, using aseptic technique. Blood bp collected. 14:14 XRAY Chest (1 view) In Process Unspecified. EDMS 14:44 CT Abd/Pelvis - IV Contrast Only In Process Unspecified. EDMS 15:56 Sang Lyons MD is Referral Physician. rn 17:08 No provider procedures requiring assistance completed. IV discontinued, intact, bp bleeding controlled, No redness/swelling at site. Pressure dressing applied. Administered Medications: No medications were administered Outcome: 15:57 Discharge ordered by . rn 17:08 Discharged to home ambulatory. bp 17:08 Condition: stable 17:08 Discharge instructions given to patient, Instructed on discharge instructions, follow up and referral plans. Demonstrated understanding of instructions, follow-up care. 17:09 Patient left the ED. bp Signatures: Dispatcher [employer] EDMS Hasmukh Arias MD MD rn Peltier, Brian, RN RN bp
[2020-04-07 17:47] VITALS: TEMP 98
[2020-04-07 17:49] VITALS: O2SAT 100
[2020-04-07 17:50] VITALS: BP 123/79
== END 2020-04-07 17:09 | disposition home or self-care (01) ==
LOC: ER 13:10
DX: D64.9 Anemia, unspecified (principal); Z20.822 Contact with and (suspected) exposure to COVID-19; E11.9 Type 2 diabetes mellitus without complications
CPT/HCPCS: 85025; 80048; 36415; 85610; 82565; 80076; 85730; 74177; 71045; 99284; U0003; Q9967

== ENCOUNTER 2020-04-12 16:11 | Emergency (ER) | payer OTHER ==
[2020-04-12 17:45] LABS: Absolute Lymphocytes (CBC) 1.3 K/uL (0.7-4.9); Basophils % 0.6 % (0-1.3); Hematocrit 18.7 % (39.6-49.0); Lymphocytes % 15.2 % (15.3-44.8); MPV 8.4 fL (7.6-11.3); RBC Red Blood Cell Count 2.26 M/uL (4.33-5.43)
[2020-04-12 17:46] LABS: Protime INR 1.06
--- OUTSIDE RECORDS SUMMARY | 2020-04-12 17:50 | XMS REPORT | Continuity of Care Document ---
:1935 Author Organization [facility] t Address [address] [place] [address] Care Team Providers Name Role Phone ADRIANA MORGAN JR Primary Care Physician Unavailable Judah WALLIS Attending Clinician Unavailable Carlos GRAMAJO Attending Clinician FARSHAD Attending Clinician Unavailable Mini YEN Attending Clinician Unavailable SONG Attending Clinician Unavailable Mnii YEN Admitting Clinician Unavailable OMRANIAN Admitting Clinician Unavailable Payers Payer Name Policy Type Policy Effective Date Expiration Date Sour ce Number MEDICAREMEDICARE PART [id number] 2001 MD Alden Cisneros AND 00:00:00 [id number] [place], [place] FOR [id number] 2015 And paolo [id number]/2015 00:00:00 -PresentGovernmental Other Problems Condition Condition Condition [...] Medical 00 Center Acute Acute Disease [facility] blood loss blood loss 3- [facility]z [facility] - anemia anemia 00:00: Medical 00 Center Lower Lower Disease [facility] gastrointe gastrointe 3 [facility] - stinal stinal 00:00: Medical bleeding bleeding 00 Center RAHUL (acute RAHUL (acute Disease Active C [facility] kidney kidney [address] 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 Family History Family Member Diagnosis Comments Start Date Stop Date Source Natural mother Early [facility] Natural mother Heart disease [facility] Paternal grandmother Diabetes [facility] Natural sister Diabetes [facility] Social History Social Habit Start Date Stop Date Quantity Comments Source Sex Assigned At [facility] Alcohol intake 2017-11-18 2017-11-18 Current drinker [facility] Alonzo grijalva [facility] - 00:00:00 00:00:00 of [facility] (finding) Tobacco use and 2017-11-18 2017-11-18 Never used [facility] - exposure 00:00:00 00:00:00 [facility] Alcohol Comment 2017-11-16 2017-11-16 once in a while [facility] - 00:00:00 00:00:00 [facility] Smoking Status Start Date Stop Date Source Former smoker 2017-11-18 00:00:00 2017-11-18 00:00:00 [facility] Medications Ordered Filled Start Stop Current Ordering [...] erso mg capsule 20:41: n 18 magnesium 2018-1 Yes 400mg Take 400 MD oxide 2-04 mg by Jacklyn (MAOX) 400 20:41: mouth. n mg tablet 18 omeprazole 2017-02 Yes 40mg Take 40 mg M D (PriLOSEC) 2-04 by mouth. Darnell rso 40 MG 20:41: n capsule 18 levothyroxi 2017-02 Yes Take by ne 2-04 mouth. Tejao (SYNTHROID, 20:41: n LEVOTHROID) 18 100 mcg tablet sitaGLIPtin 2017-02 Yes Take by MD TolbertmetFORMIN 2-04 mouth. Andreaerso (JANUMET) 17:58: n 50 mg-1,000 17 mg per tablet atorvastati 2017-02 Yes hyperlipide 40mg QD Take [...] MG 13:48: mouth Medical tablet 51 daily. [place] tamsulosin 2017-02 Yes benign .4mg QD Take 0.[address] (FLOMAX) 0-04 prostatic mg by [facility] - 0.4 mg Cp24 13:48: hyperplasia mouth Medical 24 hr 51 with lower daily. Center capsule urinary tract sx magnesium 2017-02 Yes 400mg Q.5D Take [address] [facility] oxide 0-04 mg by [facility] - (MAG-OX) 13:48: mouth 2 Medica l 400 mg 51 (two) Center tablet times daily. omeprazole 2017-02 Yes gastroesoph 40mg QD Take [address] [facility] [address] (PRILOSEC) 0-04 ageal by mouth Luke s - 40 MG 13:48: reflux daily. Medical capsule 51 disease Center midodrine 2017-02 Yes 10mg Q.[id number] Take [address] [facility] [address] (PROAMATINE 0-04 [id number] by mouth 3 [facility] - ) 10 MG 13:48: 3D (three) Medical tablet 51 times Center daily. fluticasone 2017-02 Yes allergic 2{spray QD [address] (VERAMYST) 0-04 rhinitis } by Nasal L ukes - 27.5 13:48: route Medical mcg/actuati 51 daily. Center on nasal spray tamsulosin 2016-02 Yes .4mg Take 0.4 MD (FLOMAX) 1-22 mg by Anderso 0.4 mg 24 18:59: mouth. n hr capsule 38 valACYclovi 2016-02 Yes 500mg Take 500 M D r (VALTREX) 1-22 mg by Anderso 500 mg 18:59: mouth. n tablet 38 atorvastati 2016-02 Yes n (LIPITOR) 0-28 Anderso 10 mg 00:00: n tablet 00 VERAMYST 2017- Yes 27.5 1-26 Anderso mcg/actuati 00:00: n on nasal 00 spray Procedures This patient has no known procedures. Plan of Care Planned Activity Planned Date Details Comments Source Future Scheduled 2019-10-[address] [facility] - Test 00:00:00 (#1) [code = [facility] INFLUENZA VACCINE (#1)] Future Scheduled 2002-03-19 [...] 2019-08-30 2019-08-30 Outpatient ASHLEE YEN MDA MDA [id number] 00:00:00 00:00:00 CHEYANNE braden Results Test Description Test Time Test Comments Results Result Comments Source POCT-GLUCOSE METER 2017-11-18 07:54:00 Test Item Value Reference Range Interpretation Comme nts POC-GLUCOSE METER (BEAKER) (test 87 mg/dL 70-[address] [facility] [address] [facility] code [facility] 1538) [place] [address] [id number] 06:53:00 Test Item Value Reference Range Interpretation Comments MAGNESIUM (BEAKER) (test code = 1.7 mg/dL 1.6-2.6 627) BASIC METABOLIC [id number] 06:53:00 Test Item Value Reference Range Interpretation [...] PATIEN TS. CBC W/PLT COUNT & AUTO [id number] 06:50:00 Test Item Value Reference Range Interpretation [...] (BEAKER) (test code = 2801) HEMOGLOBIN AND [id number] 06:36:00 Test Item Value Reference Range Interpretation Comments HEMOGLOBIN (BEAKER) (test code = 8.2 GM/DL 13.7-17.5 L 410) HEMATOCRIT (BEAKER) (test code = 26.2 % 40.1-51.0 L 411) POCT-GLUCOSE [id number] 00:26:00 Test Item Value Reference Range Interpretation Comments POC-GLUCOSE METER 96 mg/dL 70-[address] [facility] [address] (BEAKER) (test code = [place] [address] 1538) [id number] 17:54:00 Test Item Value Reference Range Interpretation Comments MAGNESIUM (BEAKER) (test code = 1.5 mg/dL 1.6-2.6 L 627) BASIC METABOLIC [id number] 17:54:00 Test Item Value Reference Range Interpretation [...] NOT APPLICABLE FOR DIALYSIS PATIEN TS. PROTHROMBIN [id number] 17:33:00 Test Item Value Reference Range Interpretation Comments PROTIME (BEAKER) (test code = 15.0 seconds 11.7-14.7 H 759) INR (BEAKER) (test code = 370) 1.2 <=5.9 RECOMMENDED COUMADIN/WARFARIN INR THERAPY RANGESSTANDARD DOSE: 2.0 - 3.0 Includes: PROPHYLAXIS forvenous thrombosis, systemic embolization; TREATMENT for venous thrombosis and/or pulmonary embolus.HIGH RISK: Target INR is 2.5-3.5 for patients with mechanical heart valves.HEMOGLOBIN AND [id number] 17:25:00 Test Item Value Reference Range Interpretation Comments HEMOGLOBIN (BEAKER) (test code = 8.9 GM/DL 13.7-17.5 L 410) HEMATOCRIT (BEAKER) (test code = 27.8 % 40.1-51.0 L 411) POCT-GLUCOSE [id number] 17:03:00 Test Item Value Reference Range Interpretation Comments POC-GLUCOSE METER 84 mg/dL 70-110 TESTED AT [facility] 67[address] (BEAKER) (test code = [place] Tobias [facility] [address] 1538) POCT-GLUCOSE [id number] 15:23:00 Test Item Value Reference Range Interpretation Comments POC-GLUCOSE METER 85 mg/dL 70-[address] [facility] [address] (BEAKER) (test code = [place] Tobias [facility] [address] 1538) POCT-GLUCOSE [id number] 07:16:00 Test Item Value Reference Range Interpretation Comments POC-GLUCOSE METER 104 mg/dL 70-110 TESTED AT [place] [address] (BEAKER) (test code = [facility] Micheline [facility] 1538) [address] HEMOGLOBIN AND [id number] 01:14:00 Test Item Value Reference Range Interpretation Comments HEMOGLOBIN (BEAKER) (test code = 6.7 GM/DL 13.7-17.5 L 410) HEMATOCRIT (BEAKER) (test code = 21.6 % 40.1-51.0 L 411) BASIC METABOLIC [id number] 20:19:00 Test Item Value Reference Range Interpretation [...] APPLICABLE FOR DIALYSIS PATIEN TS. HEPATIC FUNCTION [id number] 20:19:00 Test Item Value Reference Range Interpretation [...] slightly (test code = 347) hemolyzed PROTHROMBIN [id number] 20:10:00 Test Item Value Reference Range Interpretation [...] PERCENT (BEAKER) (test code = 2801) POCT-GLUCOSE [id number] 17:01:00 Test Item Value Reference Range Interpretation Comments POC-GLUCOSE METER 128 mg/dL 70-[address] [facility] [address] (BEAKER) (test code = [place] 1538) [address] ANG, VISCERAL [id number] 16:35:00FINAL REPORT Mesenteric angiogram, 04/15/2017. History: GI bleed. Modality: Fluoroscopy. Sedation: Versed 1.0 mg and fentanyl 50 mcg was given intravenously for conscious sedation. Vital signs were monitored throughout the procedure by a nurse, and remained stable. Physician intra- service time was 30 minutes. Anesthesia: Two percent Lidocaine without epinephrine. Approach: Right common femoral artery. Estimated blood loss: < 5 cc. Specimen: None. bleaching machine operator: Maxim Sims MD. Banking Manager: None. Fluoroscopy Time: 2.1 min.Refer ence Air [...] The needle was removed and a 4 Botswanan micropuncture sheath was placed, and the 0.018 wire wasexchanged for 0.035 inch J-wire. A 5 [place]an sheath was placed. A 5 [place] Ag B catheter was used to select [...] MDReport Verified Date/Time: 04/22/2017 16:35:40 Reading Location: [place] [id number] Ultrasound Reading Room POCT-GLUCOSE [id number] 11:27:00 Test Item Value Reference Range Interpretation Comments POC-GLUCOSE METER 238 mg/dL 70-[address] [facility] [address] ([facility]) (test code = [facility] 1538) [address] POCT-GLUCOSE [id number] 08:08:00 Test Item Value Reference Range Interpretation Comments POC-GLUCOSE METER 146 mg/dL 70-110 H TESTED AT [place] [address] ([facility]) (test code = [facility] 1538) [address] TSH/FREE T4 IF [id number] 05:24:00 Test Item Value Reference Range Interpretation Comments THYROID STIMULATING HORMONE 4.44 uIU/mL 0.35-4.94 (BEAKER) (test code = 772) [id number] 05:17:00 Test Item Value Reference Range Interpretation Comments PHOSPHORUS (BEAKER) (test code = 4.2 mg/dL 2.3-4.7 604) [id number] 05:17:00 Test Item Value Reference Range Interpretation Comments MAGNESIUM (BEAKER) (test code = 1.8 mg/dL 1.6-2.6 627) BASIC METABOLIC [id number] 05:17:00 Test Item Value Reference Range Interpretation [...] PATIEN TS. CBC W/PLT COUNT & AUTO [id number] 04:53:00 Test Item Value Reference Range Interpretation [...] (BEAKER) (test code = 2801) HEMOGLOBIN AND [id number] 04:48:00 Test Item Value Reference Range Interpretation Comments HEMOGLOBIN (BEAKER) (test code = 9.1 GM/DL 13.7-17.5 L 410) HEMATOCRIT (BEAKER) (test code = 27.7 % 40.1-51.0 L 411) POCT-GLUCOSE [id number] 21:33:00 Test Item Value Reference Range Interpretation Comments POC-GLUCOSE METER 268 mg/dL 70-110 H TESTED AT [place] [address] (BEAKER) (test code = [place] 1538) [address] POCT-GLUCOSE [id number] 17:36:00 Test Item Value Reference Range Interpretation Comments POC-GLUCOSE METER 131 mg/dL 70-110 H TESTED AT [place] [address] (BEAKER) (test code = [place] 1538) [address] HEMOGLOBIN AND [id number] 17:09:00 Test Item Value Reference Range Interpretation Comments HEMOGLOBIN (BEAKER) (test code = 9.1 GM/DL 13.7-17.5 L 410) HEMATOCRIT (BEAKER) (test code = 27.0 % 40.1-51.0 L 411) POCT-GLUCOSE [id number] 11:29:00 Test Item Value Reference Range Interpretation Comments POC-GLUCOSE METER 243 mg/dL 70-[address] [facility] [address] (BEAKER) (test code = [place] 1538) [address] BASIC METABOLIC [id number] 04:05:00 Test Item Value Reference Range Interpretation [...] S NOT APPLICABLE FOR DIALYSIS PATIEN TS. [id number] 03:52:00 Test Item Value Reference Range Interpretation Comments PHOSPHORUS (BEAKER) (test code = 3.5 mg/dL 2.3-4.7 604) [id number] 03:52:00 Test Item Value Reference Range Interpretation Comments MAGNESIUM (BEAKER) (test code = 1.6 mg/dL 1.6-2.6 627) CBC W/PLT COUNT & AUTO [id number] 03:42:00 Test Item Value Reference Range Interpretation [...] PERCENT (BEAKER) (test code = 2801) POCT-GLUCOSE [id number] 23:56:00 Test Item Value Reference Range Interpretation Comments POC-GLUCOSE METER 149 mg/dL 70-[address] [facility] [address] (BEAKER) (test code = [place] 1538) [address] HEMOGLOBIN AND [id number] 23:48:00 Test Item Value Reference Range Interpretation Comments HEMOGLOBIN (BEAKER) (test code = 8.3 GM/DL 13.7-17.5 L 410) HEMATOCRIT (BEAKER) (test code = 24.7 % 40.1-51.0 L 411) POCT-GLUCOSE [id number] 18:37:00 Test Item Value Reference Range Interpretation Comments POC-GLUCOSE METER 149 mg/dL 70-[address] [facility] [address] (BEAKER) (test code = [place] 1538) [address] HEMOGLOBIN AND [id number] 14:27:00 Test Item Value Reference Range Interpretation Comments HEMOGLOBIN (BEAKER) (test code = 9.0 GM/DL 13.7-17.5 L 410) HEMATOCRIT (BEAKER) (test code = 27.0 % 40.1-51.0 L 411) POCT-GLUCOSE [id number] 12:21:00 Test Item Value Reference Range Interpretation Comments POC-GLUCOSE METER 122 mg/dL 70-[address] [facility] [address] (BEAKER) (test code = [place] 1538) [address] BASIC METABOLIC [id number] 04:49:00 Test Item Value Reference Range Interpretation [...] S NOT APPLICABLE FOR DIALYSIS PATIEN TS. [id number] 04:43:00 Test Item Value Reference Range Interpretation Comments MAGNESIUM (BEAKER) (test code = 1.5 mg/dL 1.6-2.6 L 627) [id number] 04:43:00 Test Item Value Reference Range Interpretation Comments PHOSPHORUS (BEAKER) (test code = 3.4 mg/dL 2.3-4.7 604) CBC W/PLT COUNT & AUTO [id number] 04:16:00 Test Item Value Reference Range Interpretation [...] BASOPHILS ABSOLUTE 0.02 K/ L 0.01-0.08 COUNT (AKER) (test code = 417) IMMATURE 1 % 0-1 GRANULOCYTES-RELATIVE PERCENT (AKER) (test code = 2801) HEMOGLOBIN AND [id number] 23:11:00 Test Item Value Reference Range Interpretation Comments HEMOGLOBIN (BEAKER) (test code = 7.4 GM/DL 13.7-17.5 L 410) HEMATOCRIT (BEAKER) (test code = 22.0 % 40.1-51.0 L 411) POCT-GLUCOSE [id number] 22:00:00 Test Item Value Reference Range Interpretation Comments POC-GLUCOSE METER 163 mg/dL 70-110 H TESTED AT [place] [address] ([facility]) (test code = [facility] 1538) [address] POCT-GLUCOSE [id number] 17:19:00 Test Item Value Reference Range Interpretation Comments POC-GLUCOSE METER 151 mg/dL 70-110 H TESTED AT [place] [address] ([facility]) (test code = [facility] 1538) [address] HEMOGLOBIN AND [id number] 16:24:00 Test Item Value Reference Range Interpretation Comments HEMOGLOBIN (BEAKER) (test code = 8.4 GM/DL 13.7-17.5 L 410) HEMATOCRIT ([facility]) (test code = 25.2 % 40.1-51.0 L 411) POCT-GLUCOSE [id number] 09:30:00 Test Item Value Reference Range Interpretation Comments POC-GLUCOSE METER 96 mg/dL 70-110 TESTED AT [place] [address] ([facility]) (test code = [facility] [address] 1538) CBC W/PLT COUNT & AUTO [id number] 09:10:00 Test Item Value Reference Range Interpretation Comments WHITE BLOOD CELL COUNT ([facility]) 7.4 K/ L 3.5-10.5 (test code = 775) RED BLOOD CELL COUNT ([facility]) 2.36 M/ L 4.63-6.08 L (test code [...] (BEAKER) (test code = 2801) BASIC METABOLIC [id number] 07:12:00 Test Item Value Reference Range Interpretation [...] S NOT APPLICABLE FOR DIALYSIS PATIEN TS. [id number] 07:10:00 Test Item Value Reference Range Interpretation Comments MAGNESIUM (BEAKER) 1.7 mg/dL 1.6-2.6 Specimen slightly (test code = 627) hemolyzed [id number] 07:10:00 Test Item Value Reference Range Interpretation Comments PHOSPHORUS (BEAKER) 2.0 mg/dL 2.3-4.7 L Specimen slightly (test code = 604) hemolyzed [id number] 06:24:00 Test Item Value Reference Range Interpretation [...] 2.5-3.5 for patients with mechanical heart valves.PROTHROMBIN [id number] 06:23:00 Test Item Value Reference Range Interpretation Comments PROTIME (BEAKER) (test code = 15.4 seconds 11.7-14.7 H 759) INR (BEAKER) (test code = 370) 1.2 <=5.9 RECOMMENDED COUMADIN/WARFARIN INR THERAPY RANGESSTANDARD DOSE: 2.0 - 3.0 Includes: PROPHYLAXIS forvenous thrombosis, systemic embolization; TREATMENT for venous thrombosis and/or pulmonary embolus.HIGH RISK: Target INR is 2.5-3.5 for patients with mechanical heart valves.HEMOGLOBIN AND [id number] 23:40:00 Test Item Value Reference Range Interpretation Comments HEMOGLOBIN (BEAKER) (test code = 7.3 GM/DL 13.7-17.5 L 410) HEMATOCRIT (BEAKER) (test code = 21.7 % 40.1-51.0 L 411) POCT-GLUCOSE [id number] 23:37:00 Test Item Value Reference Range Interpretation Comments POC-GLUCOSE METER 114 mg/dL 70-[address] [facility] ([facility]) (test code = [facility] 1538) [address] HEMOGLOBIN AND [id number] 17:46:00 Test Item Value Reference Range Interpretation Comments HEMOGLOBIN (BEAKER) (test code = 7.2 GM/DL 13.7-17.5 L 410) HEMATOCRIT (BEAKER) (test code = 22.0 % 40.1-51.0 L 411) POCT-GLUCOSE [id number] 17:29:00 Test Item Value Reference Range Interpretation Comments POC-GLUCOSE METER 146 mg/dL 70-110 H TESTED AT [place] [address] ([facility]) (test code = [facility] 1538) [address] PROTHROMBIN [id number] 12:38:00 Test Item Value Reference Range Interpretation Comments PROTIME (BEAKER) (test code = 17.0 seconds 11.7-14.7 H 759) INR (BEAKER) (test code = 370) 1.4 <=5.9 RECOMMENDED COUMADIN/WARFARIN INR THERAPY RANGESSTANDARD DOSE: 2.0 - 3.0 Includes: PROPHYLAXIS forvenous thrombosis, systemic embolization; TREATMENT for venous thrombosis and/or pulmonary embolus.HIGH RISK: Target INR is 2.5-3.5 for patients with mechanical heart valves.[id number] 12:38:00 Test Item Value Reference Range Interpretation [...] for patients with mechanical heart valves.HEMOGLOBIN AND [id number] 12:21:00 Test Item Value Reference Range Interpretation Comments HEMOGLOBIN (BEAKER) (test code = 7.1 GM/DL 13.7-17.5 L 410) HEMATOCRIT (BEAKER) (test code = 21.7 % 40.1-51.0 L 411) POCT-GLUCOSE [id number] 12:01:00 Test Item Value Reference Range Interpretation Comments POC-GLUCOSE METER 147 mg/dL 70-[address] [facility] [address] (BEAKER) (test code = [place] 1538) [address] [id number] 09:30:00 Test Item Value Reference Range Interpretation Comments PHOSPHORUS (BEAKER) (test code = 2.3 mg/dL 2.3-4.7 604) [id number] 09:30:00 Test Item Value Reference Range Interpretation Comments MAGNESIUM (BEAKER) (test code = 1.8 mg/dL 1.6-2.6 627) BASIC METABOLIC [id number] 09:30:00 Test Item Value Reference Range Interpretation [...] PATIEN TS. CBC W/PLT COUNT & AUTO [id number] 08:40:00 Test Item Value Reference Range Interpretation [...] PERCENT (BEAKER) (test code = 2801) POCT-GLUCOSE [id number] 07:17:00 Test Item Value Reference Range Interpretation Comments POC-GLUCOSE METER 151 mg/dL 70-[address] [facility] [address] (BEAKER) (test code = [facility] [place] 15[address]) [address] POCT-GLUCOSE [id number] 02:45:00 Test Item Value Reference Range Interpretation Comments POC-GLUCOSE METER 164 mg/dL 70-[address] [facility] [address] (BEAKER) (test code = [facility] [place] 1538) [address] HEMOGLOBIN AND [id number] 01:50:00 Test Item Value Reference Range Interpretation Comments HEMOGLOBIN (BEAKER) (test code = 6.3 GM/DL 13.7-17.5 L 410) HEMATOCRIT (BEAKER) (test code = 19.7 % 40.1-51.0 L 411) HEMOGLOBIN AND [id number] 20:50:00 Test Item Value Reference Range Interpretation Comments HEMOGLOBIN (BEAKER) (test code = 7.1 GM/DL 13.7-17.5 L 410) HEMATOCRIT (BEAKER) (test code = 22.0 % 40.1-51.0 L 411) [id number] 19:35:00 Test Item Value Reference Range Interpretation Comments PROCALCITONIN (BEAKER) (test code = < ng/mL <0.05 3036) SEPSIS RISK (ng/mL)Low: 0.05-0.50Intermediate: 0.51-2.00High: >=2.01LACTIC ACID, VENOUS, WHOLE [id number] 17:58:00 Test Item Value Reference Range Interpretation Comments LACTATE BLOOD VENOUS (2) (BEAKER) 1.1 mmol/L 0.5-2.2 (test code = 2872) Effective 06/19/2015: Units/Reference Range ChangeNew: 0.5-2.2 mmol/L Previous: 5-20 mg/dLRAD, CHEST, 1 VIEW, NON [id number] 17:31:00Reason for exam:- >SOBShould this be performed [...] hardware is partially visualized. Signed: Bettye Diallo MDReport Verified Date/Time: 04/15/201717:31:41 Reading Location: [facility] Radiology Reading Room C METABOLIC [id number] 17:17:00 Test Item Value Reference Range Interpretation [...] S NOT APPLICABLE FOR DIALYSIS PATIEN TS. [id number] 17:04:00 Test Item Value Reference Range Interpretation Comments PHOSPHORUS (BEAKER) (test code = 2.4 mg/dL 2.3-4.7 604) [id number] 17:04:00 Test Item Value Reference Range Interpretation Comments MAGNESIUM (BEAKER) (test code = 1.8 mg/dL 1.6-2.6 627) HEPATIC FUNCTION [id number] 17:04:00 Test Item Value Reference Range Interpretation [...] (test code = 11 U/L 6-55 347) PROTHROMBIN [id number] 16:47:00 Test Item Value Reference Range Interpretation [...] (BEAKER) (test code = 2801) HEMOGLOBIN AND [id number] 16:40:00 Test Item Value Reference Range Interpretation Comments HEMOGLOBIN (BEAKER) (test code = 7.4 GM/DL 13.7-17.5 L 410) HEMATOCRIT (BEAKER) (test code = 23.2 % 40.1-51.0 L 411)
--- NOTE | 2020-04-12 17:58 | RAD REPORT ---
EXAM DESCRIPTION: RAD - Chest Single View - 04/12/2020 5:53 pm CLINICAL HISTORY: syncope, right sided rib pain Chest pain. COMPARISON: Chest Single View dated 04/07/2020; Chest Single View dated 11/16/2017; Chest Single View dated 04/14/2017; Chest Single View dated 08/29/2015 FINDINGS: Portable technique limits examination quality. The lungs are grossly clear. The heart is normal in size. Sternotomy wires noted.Cervical hardware pl ate present. IMPRESSION: No acute intrathoracic process suspected.
[2020-04-12 18:03] LABS: ALT/SGPT 19 U/L (12-78); AST/SGOT 15 U/L (15-37); Albumin 3.4 g/dL (3.4-5.0); Alkaline Phosphatase 69 U/L (45-117); BUN Blood Urea Nitrogen 22 mg/dL (7-18); Bicarbonate 27 mmol/L (21-32); Bilirubin Direct < 0.1 mg/dL (0-0.2); Bilirubin Total 0.4 mg/dL (0.2-1.0); Glucose Level 199 mg/dL (74-106); NT PRO-BNP 700 pg/mL (<450); Potassium 3.8 mmol/L (3.5-5.1); Sodium Level 139 mmol/L (136-145); Troponin (Emerg Dept Use Only) 0.04 ng/mL (0.0-0.045)
[2020-04-12] MEDS ORDERED: NA CHLORIDE 0.9% 250 ML ONE (19:15)
[2020-04-12] MEDS ORDERED: PANTOPRAZOLE 40 MG INJ ONE (19:15)
--- NOTE | 2020-04-12 19:53 | RAD REPORT ---
EXAM DESCRIPTION: CT - Head Brain Wo Cont - 04/12/2020 7:13 pm CLINICAL HISTORY: SYNCOPE Headache, drowsiness COMPARISON: Head Brain Wo Cont dated 08/29/2015; CTFACIAL BONES W MPR dated 12/06/2012 TECHNIQUE: All CT scans are performed using dose optimization technique as appropriate and may inclu de automated exposure control or mA/KV adjustment according to patient size. FINDINGS: No intracranial hemorrhage, hydrocephalus or extra-axial fluid collection.Moderate general ized brain atrophy is present with mild periventricular and deep white matter chronic microvascular i schemic changes.No areas of brain edema or evidence of midline shift. The paranasal sinuses and mastoids are clear. The calvarium is intact. IMPRESSION: No acute intracranial abnormality.
--- NOTE | 2020-04-12 20:44 | ER ---
Nurse's Notes [facility] Name: Mike Peña Age: 85 yrs Sex: Male : 1935 Arrival Date: 04/12/2020 Time: 16:15 Bed 23 Private MD: Diagnosis: Anemia;Gastrointestinal hemorrhage, unspecified Presentation: 04/12 16:23 Chief complaint: Patient states: Diagnosed with diverticulitis last Wednesday here. Did ll1 not want to be transferred. Syncope episode Wednesday night. Fell and hit R rib cage. R rib cage pain since. Passed out two more times last night. Decided to come get checked again since he keeps passing out. + rectal bleeding (dark). Coronavirus screen: Client denies travel out of the [place] in the last 14 days. At this time, the client does not indicate any symptoms associated with coronavirus-19. Ebola Screen: Patient denies travel to an Ebola-affected area in the 21 days before illness onset. Initial Sepsis Screen: Does the patient meet any 2 criteria? No. Patient's initial sepsis screen is negative. Does the patient have a suspected source of infection? Yes: Acute abdominal pain Other: rectal bleed. Risk Assessment: Do you want to hurt yourself or someone else? Patient reports no desire to harm self or others. Onset of symptoms was April 06, 2020. 16:23 Method Of Arrival: Wheelchair ll 16:23 Acuity: BEKAH 3 ll1 Historical: - Allergies: 16:28 No Known Drug Allergies; ll1 - Home Meds: 20:11 atorvastatin 40 mg Oral tab 1 tab once daily [Active]; valacyclovir 500 mg Oral tab 1 sf tab once daily [Active]; tamsulosin 0.4 mg Oral cp24 1 cap once daily [Active]; omeprazole 40 mg Oral cpDR 1 cap once daily [Active]; midodrine 10 mg Oral tab 1 tab 3 times per day [Active]; magnesium oxide 400 mg Oral tab twice a day [Active]; levothyroxine 100 mcg tab 1 tab once daily [Active]; Janumet 50-500 mg Oral tab 1 tab 2 times per day [Active]; gabapentin 300 mg Oral cap 1 cap 3 times per day [Active]; duloxetine 60 mg Oral cpDR 1 cap nightly [Active]; - PMHx: 16:28 Cancer; carcinoma; Diabetes - NIDDM; Diverticulitis; ischemic heart disease; ll1 Hypothyroidism; - PSHx: 16:28 triple bypass; Cholecystectomy; c6-c7 titanium plate; Hernia repair; ll1 - Immunization history:: Flu vaccine is not up to date. - Social history:: Smoking status: Patient denies any tobacco usage or history of. Patient/guardian denies using tobacco, the patient reports quitting approximately 50 years ago. Screenin:49 Abuse screen: Denies threats or abuse. Denies injuries from another. Nutritional ec1 screening: No deficits noted. Tuberculosis screening: No symptoms or risk factors identified. Fall Risk Fall in past 12 months (25 points). No secondary diagnosis (0 pts). IV access (20 points). Ambulatory Aid- None/Bed Rest/Nurse Assist (0 pts). Gait- Weak (10 pts.). Mental Status- Oriented to own ability (0 pts). Assessment: 16:49 General: Appears in no apparent distress. comfortable, Behavior is calm, cooperative. ec1 Pain: Complains of pain in RUQ. Neuro: Level of Consciousness is awake, alert, obeys commands. Cardiovascular: Rhythm is sinus rhythm. Respiratory: Airway is patent Respiratory effort is even, unlabored, Breath sounds are clear in right upper lobe, left upper lobe and left lower lobe Breath sounds are diminished in right middle lobe and right lower lobe. GI: Abdomen is round Last BM was April 11, 2020. Reports upper abdominal pain, bloody stool, Patient currently denies vomiting. : No signs and/or symptoms were reported regarding the genitourinary system. EENT: No signs and/or symptoms were reported regarding the EENT system. Derm: Skin is pale. Musculoskeletal: No signs and/or symptoms reported regarding the musculoskeletal system. 17:53 Reassessment: Patient appears in no apparent distress at this time. No changes from ec1 previously documented assessment. Patient and/or family updated on plan of care and expected duration. Pain level reassessed. Ortho static vitals lying bp 125/70, HR 72, Sitting bp 121/64, HR 80, standing bp 107/66 HR 96. 18:13 Neuro: Level of Consciousness is awake, alert, confused, Oriented to person, place. ec1 18:45 Reassessment: Patient appears in no apparent distress at this time. No changes from ec1 previously documented assessment. Patient and/or family updated on plan of care and expected duration. Pain level reassessed. stool guiac performed by Matthew GRAMAJO, positive result. 19:29 General: Appears in no apparent distress. comfortable, Behavior is calm, cooperative. sf Pain: Complains of pain in abdomen. Neuro: No deficits noted. Level of Consciousness is awake, alert, obeys commands, Oriented to person, place. Cardiovascular: No deficits noted. Patient's skin is warm and dry. Rhythm is sinus rhythm. Respiratory: Airway is patent Respiratory effort is even, unlabored. GI: Abdomen is non-distended, Reports upper abdominal pain, bloody stool, Patient currently denies vomiting. : No signs and/or symptoms were reported regarding the genitourinary system. Derm: Skin is pale. 20:30 Reassessment: Patient appears in no apparent distress at this time. No changes from sf previously documented assessment. Patient and/or family updated on plan of care and expected duration. Pain level reassessed. Vital Signs: 16:23 BP 145 / 67; Pulse 81; Resp 17; Temp 98.3; Pulse Ox 100% ; Weight 86.18 kg; Height 6 ll1 ft. 1 in. (185.42 cm); Pain 8/10; 17:48 BP 107 / 60; Pulse 92; Resp 18 S; Pulse Ox 100% on R/A; ec1 19:09 BP 128 / 71; Pulse 82; Resp 16 S; Pulse Ox 100% on R/A; ec1 19:22 BP 135 / 68; Pulse 69; Resp 18; Pulse Ox 100% ; sf 19:30 BP 120 / 61; Pulse 71; Resp 18; Pulse Ox 100% ; sf 20:30 BP 127 / 68; Pulse 75; Resp 18; Pulse Ox 99% on R/A; sf 16:23 Body Mass Index 25.07 (86.18 kg, 185.42 cm) ll1 Vitals: 20:30 Cardiac Rhythm Assessment Sinus rhythm. sf ED Course: 16:15 Patient arrived in ED. ds1 16:27 Triage completed. ll1 16:28 Arm band placed on Patient placed in an exam room, on a stretcher. ll1 16:33 Maria C Head, RN is Primary Nurse. ec1 16:49 Patient has correct armband on for positive identification. Bed in low position. ec1 16:49 Inserted saline lock: 18 gauge in right antecubital area, using aseptic technique. ec1 Blood collected. 17:13 Matthew Hagan PA is PHCP. [facility] 17:13 Miller Hartmann MD is Attending Physician. jmm 17:53 XRAY Chest (1 view) In Process Unspecified. EDMS 19:05 Initiated transfer at [facility] with Erin Singer. tt3 19:[address] via stretcher. ec1 19:10 Report given to Willi WALLIS. ec1 19:13 CT Head Brain wo Cont In Process Unspecified. EDMS 19:25 Updated Erin Singer on labs. Stated she would make note and is still waiting to hear tt3 back about a bed. 19:27 COVID swab sent to lab. jp3 19:29 Guiac Sent. sf 19:32 No provider procedures requiring assistance completed. sf 19:36 Erin Enmanuel called back to state that the transfer request was declined due to no beds tt3 available. 19:40 Initiated transfer at [facility] with Deb Loyola. Stated she would check bed capacity at tt3 all campuses and call back. 19:53 Deb Loyola called back with Dr. Rodriguez to speak with AVILA Leblanc, regarding the tt3 transfer request. 20:00 Inserted saline lock: 20 gauge in left forearm, using aseptic technique. sf 20:32 Updated Deb Loyola on the pts covid result. tt3 20:35 Deb Loyola gave admin approval. Dr. Rodriguez is the accepting physician. The pt is going tt3 to [facility] bed [id number]. Nurse to call report to . Face sheet to be faxed to per Deb's request. 21:26 Patient transferred, IV remains in place. sf 21:53 Report given to [facility]. sf Administered Medications: 19:08 Drug: ProTONIX 40 mg Route: IVP; Site: right antecubital; ec1 21:54 Follow up: Response: No adverse reaction sf 19:24 Drug: ProTONIX 8 mg/hr Route: IV; Rate: 25 ml/hr; Site: right antecubital; sf 21:53 Follow up: IV Status: Infusion continued upon transfer sf Point of Care Testing: Guaiac: 18:45 Stool Guaiac: Positive; Stool Hemoccult Control: Pass; ec1 Outcome: 20:43 ER care complete, transfer ordered by . yenni 21:24 Transferred by ground EMS to [facility], Note: Judie hill (Chiquita Combs, BIMAL) 21:24 Condition: stable 21:24 Instructed on the need for transfer. 21:54 Patient left the ED. sf Signatures: Dispatcher [employer] EDMS Matthew Hagan PA PA Ena Cordero ds1 Jaden Urena jp3 Shayna Stephenson RN RN ll1 Clemente Drummond tt3 Maria C Head RN RN ec1 Willi Al RN RN sf Corrections: (The following items were deleted from the chart) 20:44 19:40 Initiated transfer at [facility] with Deb. Stated she would check bed capacity at all tt3 campuses and call back. tt3 21:18 19:32 Patient admitted, IV remains in place. sf sf
--- NOTE | 2020-04-12 20:44 | EDPHYS ---
Physician Documentation [facility] Name: Mike Peña Age: 85 yrs Sex: Male : 1935 Arrival Date: 04/12/2020 Time: 16:15 Bed 23 Private MD: ED Physician Miller Hartmann HPI: 04/12 17:28 This 85 yrs old Male presents to ER via Wheelchair with complaints of Passed jmm Out Prior To Arrival. 17:28 The patient has experienced syncope. Onset: The symptoms/episode began/occurred jmm acutely, 1 week(s) ago. Associated injury: Head/face: Chest: pain. This is an 85 year old male with a history of dm, diverticulitis that presents to the ED with complaints of headache, right sided rib pain after multiple falls this week. patient states most recetly passed out last night. Also complains of shortness of breath and dark red stools, patient believes he may be low in iron. Historical: - Allergies: 16:28 No Known Drug Allergies; ll1 - Home Meds: 20:11 atorvastatin 40 mg Oral tab 1 tab once daily [Active]; valacyclovir 500 mg Oral tab 1 sf tab once daily [Active]; tamsulosin 0.4 mg Oral cp24 1 cap once daily [Active]; omeprazole 40 mg Oral cpDR 1 cap once daily [Active]; midodrine 10 mg Oral tab 1 tab 3 times per day [Active]; magnesium oxide 400 mg Oral tab twice a day [Active]; levothyroxine 100 mcg tab 1 tab once daily [Active]; Janumet 50-500 mg Oral tab 1 tab 2 times per day [Active]; gabapentin 300 mg Oral cap 1 cap 3 times per day [Active]; duloxetine 60 mg Oral cpDR 1 cap nightly [Active]; - PMHx: 16:28 Cancer; carcinoma; Diabetes - NIDDM; Diverticulitis; ischemic heart disease; ll1 Hypothyroidism; - PSHx: 16:28 triple bypass; Cholecystectomy; c6-c7 titanium plate; Hernia repair; ll1 - Immunization history:: Flu vaccine is not up to date. - Social history:: Smoking status: Patient denies any tobacco usage or history of. Patient/guardian denies using tobacco, the patient reports quitting approximately 50 years ago. ROS: 17:28 Constitutional: Positive for fatigue. [facility] 17:28 Respiratory: Positive for shortness of breath. 17:28 Neuro: Positive for syncope. 17:28 All other systems are negative. Exam: 17:28 Constitutional: This is a well developed, well nourished patient who is awake, alert, jmm and in no acute distress. Head/Face: atraumatic. Eyes: EOMI, no conjunctival erythema appreciated ENT: Moist Mucus Membranes Neck: Trachea midline, Supple 17:28 Cardiovascular: Regular rate and rhythm. No edema appreciated Respiratory: Normal respirations, no respiratory distress appreciated Abdomen/GI: Non distended, soft Back: Normal ROM Skin: General appearance color normal MS/ Extremity: Moves all extremities, no obvious deformities appreciated, no edema noted to the lower extremities Neuro: Awake and alert, normal gait Psych: Behavior is normal, Mood is normal, Patient is cooperative and pleasant 17:28 Chest/axilla: Inspection: Palpation: tenderness, that is mild, of the right lateral anterior chest. 17:57 ECG was reviewed by the Attending Physician. [facility] Vital Signs: 16:23 BP 145 / 67; Pulse 81; Resp 17; Temp 98.3; Pulse Ox 100% ; Weight 86.18 kg; Height 6 ll1 ft. 1 in. (185.42 cm); Pain 8/10; 17:48 BP 107 / 60; Pulse 92; Resp 18 S; Pulse Ox 100% on R/A; ec1 19:09 BP 128 / 71; Pulse 82; Resp 16 S; Pulse Ox 100% on R/A; ec1 19:22 BP 135 / 68; Pulse 69; Resp 18; Pulse Ox 100% ; sf 19:30 BP 120 / 61; Pulse 71; Resp 18; Pulse Ox 100% ; sf 20:30 BP 127 / 68; Pulse 75; Resp 18; Pulse Ox 99% on R/A; sf 16:23 Body Mass Index 25.07 (86.18 kg, 185.42 cm) ll1 MDM: 17:20 Patient medically screened. [facility] 20:39 Data reviewed: vital signs, nurses notes. Counseling: I had a detailed discussion with [facility] the patient and/or guardian regarding: the historical points, exam findings, and any diagnostic results supporting the discharge/admit diagnosis, lab results, radiology results, the need for further work-up and treatment in the hospital, the need to transfer to another facility. ED course: I discussed the patient with Dr. Lyons whom recommended transfer due to the need for IR. I discussed the patient with Dr. Rodriguez whom accepted the patient at [facility]. . 04/12 17:27 Order name: Basic Metabolic Panel; Complete Time: 18:11 [facility] 04/12 17:27 Order name: CBC with Diff; Complete Time: 18:02 [facility] 04/12 17:27 Order name: LFT's; Complete Time: 18:11 [facility] 04/12 17:27 Order name: Magnesium; Complete Time: 18:11 [facility] 04/12 17:27 Order name: NT PRO-BNP; Complete Time: 18:11 [facility] 04/12 17:27 Order name: PT-INR; Complete Time: 18:02 [facility] 04/12 17:27 Order name: Troponin (emerg Dept Use Only); Complete Time: 18:11 [facility] 04/12 18:50 Order name: Guiac tt3 04/12 18:50 Order name: Occult Blood--Ancillary; Complete Time: 19:00 [facility] 04/12 19:10 Order name: COVID-19 : Document "Date of Symptom Onset" if Symptomatic. tt3 04/12 17:27 Order name: XRAY Chest (1 view); Complete Time: 18:02 [facility] 04/12 17:27 Order name: EKG; Complete Time: 17:28 [facility] 04/12 17:27 Order name: Cardiac monitoring; Complete Time: 17:28 [facility] 04/12 17:27 Order name: EKG - Nurse/Tech; Complete Time: 17:53 [facility] 04/12 17:27 Order name: IV Saline Lock; Complete Time: 17:28 [facility] 04/12 17:27 Order name: Labs collected and sent; Complete Time: 17:36 [facility] 04/12 17:27 Order name: O2 Per Protocol; Complete Time: 17:28 [facility] 04/12 17:27 Order name: O2 Sat Monitoring; Complete Time: 17:28 [facility] 04/12 17:27 Order name: Orthostatic Blood Pressure; Complete Time: 17:53 [facility] 04/12 18:49 Order name: CT Head Brain wo Cont; Complete Time: 19:59 [facility] 04/12 20:26 Order name: SARS-COV-2 RT PCR; Complete Time: 20:44 EDMS EC:57 Rate is 68 beats/min. Rhythm is regular, rbbb. QRS [place] is Normal. PA interval is jm normal. QRS interval is normal. QT interval is normal. No Q waves. T waves are Normal. No ST changes noted. Reviewed by me. Administered Medications: 19:08 Drug: ProTONIX 40 mg Route: IVP; Site: right antecubital; ec1 21:54 Follow up: Response: No adverse reaction sf 19:24 Drug: ProTONIX 8 mg/hr Route: IV; Rate: 25 ml/hr; Site: right antecubital; sf 21:53 Follow up: IV Status: Infusion continued upon transfer sf Point of Care Testing: Guaiac: 18:45 Stool Guaiac: Positive; Stool Hemoccult Control: Pass; ec1 Disposition: 04/12/20 20:43 Transfer ordered to [facility]. Diagnosis are Anemia, Gastrointestinal hemorrhage, unspecified. - Reason for transfer: Higher level of care. - Accepting physician is Dr. Rodriguez. - Condition is Stable. - Problem is an acute exacerbation. - Symptoms have improved. Addendum: 04/15/2020 06:03 Co-signature as Attending Physician, Miller Hartmann MD I agree with the assessment and k dr plan of care. Signatures: Dispatcher [employer] [facility] Miller Hartmann MD MD [facility] Matthew Hagan PA PA [facility] Shayna Stephenson, BIMAL RN ll1 Maria C Head RN RN ec1 Willi Al RN RN sf Corrections: (The following items were deleted from the chart) 04/12 19:44 19:11 CORONAVIRUS ordered. [facility] EDLA 19:56 17:28 TYPE AND SCREEN+BB.LAB.BRZ ordered. [facility] EDMS 19:56 18:39 TYPE AND SCREEN+BB.LAB.BRZ reviewed. [facility] 21:54 20:43 04/12/2020 20:43 Transfer ordered to [facility]. Diagnosis is Anemia; sf Gastrointestinal hemorrhage, unspecified. Reason for transfer: Higher level of care. Accepting physician is Dr. Rodriguez. Condition is Stable. Problem is an acute exacerbation. Symptoms have improved. [facility]
[2020-04-12 23:11] VITALS: TEMP 98.3
[2020-04-12 23:17] VITALS: BP 127/68; O2SAT 99
--- NOTE | 2020-04-13 07:55 | EKG ---
Test Date: 2020-04-12 Test Time: 17:43:33 Tar Heater Operator: LUANA MEASUREMENT RESULTS: Intervals: Rate: 68 MN: 164 QRSD: 122 QT: 432 QTc: 459 Gary: P: 106 MN: 164 QRS: 19 T: 29 INTERPRETIVE STATEMENTS: Normal sinus rhythm with sinus arrhythmia Right bundle branch block Abnormal ECG Compared to ECG 04/07/2020 14:22:32 Right bundle-branch block now present Incomplete right bundle-branch block no longer present Electronically Signed On 04-13-20 07:54:04 ORE SMELTER by Gm Romo
== END 2020-04-12 21:54 | disposition short-term general hospital (02) ==
LOC: ER 16:11
DX: D64.9 Anemia, unspecified (principal); K92.2 Gastrointestinal hemorrhage, unspecified; E11.9 Type 2 diabetes mellitus without complications; E03.9 Hypothyroidism, unspecified; Z95.1 Presence of aortocoronary bypass graft; Z20.822 Contact with and (suspected) exposure to COVID-19
CPT/HCPCS: 96365; 93005; 85025; 80048; 36415; 83735; 85610; 80076; 82272; 84484; 83880; 70450; 71045; 99285; 96366; U0003; C9113; J7050; 86850

== ENCOUNTER 2020-11-04 08:17 | Day surgery (SDC) | payer OTHER ==
[2020-11-04] MEDS ORDERED: NA CHLORIDE 0.9% 1,000 ML ONE ×2 (09:15→12:10)
[2020-11-04] MEDS ORDERED: dexAMETHasone 10 MG/ML VIAL ONE ×2 (09:15→10:10)
[2020-11-04] MEDS ORDERED: ROCURONIUM 50 MG/5 ML VIAL IV ONE (10:10)
[2020-11-04] MEDS ORDERED: FENTANYL CITR 100 MCG/2 ML ONE (10:10)
[2020-11-04] MEDS ORDERED: propofoL 200 MG/20 ML VIAL IV ONE (10:10)
[2020-11-04] MEDS ORDERED: LIDOCAINE 2% MPF 5 ML VIAL ONE (10:10)
[2020-11-04] MEDS ORDERED: Phenylephrine HCl 10 MG/ML 1 ML VIAL ONE (12:07)
[2020-11-04] MEDS ORDERED: LIDOCAINE 1% W/EPI 1:100,000 MDV 20 ML VIAL ONE (12:10)
[2020-11-04] MEDS ORDERED: ALBUMIN HUM 5% 250 ML IV ONE (12:13)
[2020-11-04 12:59] VITALS: BP 144/73; TEMP 97.1; O2SAT 97
[2020-11-04] MEDS ORDERED: ACETAMINOPHEN 160 MG/5 ML UCUP ONE (13:30)
--- NOTE | 2020-11-05 23:51 | OP ---
Date of Procedure: 11/04/2020 Surgeon: DIAMOND NUNEZ Preoperative Diagnosis: Soft palate neoplasm, uncertain behavior. Postoperative Diagnosis: Soft palate neoplasm, uncertain behavior. Procedure: Excisional biopsy of soft palate neoplasm under general anesthesia. Anesthesia: General endotracheal anesthesia was administered. I also infiltrated approximately 5 mL of 1% lidocaine with 1:100,000 epinephrine at the excision site. Estimated Blood Loss: Scant, less than 1 mL. Specimens: Submitted to Pathology for evaluation. Initially, we were going to get frozen section sp ecimens, but unfortunately some of the equipment were not operating adequately. Thus, the specimen w as sent for permanent sections, and the patient was notified postoperatively. Results forthcoming. Findings: Raised papillomatous lesion measuring approximately 2.0 x 1.0 cm located at the soft palat e just right of midline. Complications: None. Disposition: Stable. The patient tolerated the procedure well. 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 Examination revealed a sma ll raised papillomatous lesion involving the right soft palate. The patient does wear upper dentures , and I was suspecting that the lesion was formed by the dentures, but in light of his history, it wa s recommended that he obtain an excisional biopsy under general anesthesia. He understood, all quest ions were answered. Risks versus benefits and complications explained in detail and a consent form w as signed, which is placed in the chart. Description Of Procedure: The patient was transferred from the preoperative holding area to the oper ative suite by Department of Anesthesia, placed on the operative table supine, sedated and intubated in normal fashion. Table was rotated 90 degrees. A shoulder roll was not needed. Head and eyes wer e covered with sterile blue towels, and moist Ray-Estrella was placed over the upper lip for protection. A 4 x 4 gauze was placed over the upper gingiva for protection, and then a McIvor retractor was intro duced into the right oral commissure and directed along the endotracheal tube and suspended from the Pro stand. Approximately 5 mL of 1% lidocaine with 1:100,000 epinephrine was infiltrated around the excision site, and then an incision was made around the lesion, making sure to include a cuff of nor mal appearing mucosa with a #15 blade scalpel and down to the muscular part of the palate. The lesio n was removed including subcutaneous fat as well as the superficial mucosa and the lesion attached wi th bayonet forceps and needlepoint electrocautery on the twentieth setting. Once the lesion was harrison rasheed, hemostasis was achieved with suction Bovie cautery on the twentieth setting. The surgical lakeisha ns were marked with a marker and handed off the field. The lesion had to be submitted for permanent sections, though because of the equipment was not working adequately. Closure of the defect was not needed as the lesion was shallow, and it did not appear to be invasive. A flexible orogastric tube w as inserted into the esophagus, and stomach and all fluid contents were removed. The patient was de suspended from the stand, and McIvor retractor was removed. The patient's jaw was checked and found to be in proper alignment. The head turban was removed. The patient was transferred back to the Dep artment of Anesthesia, and then subsequently transferred to the PACU. He will be discharged home on analgesic medication. He will follow up in 1 to 2 weeks or sooner if needed. MEGAN/SARAH Voice ID: [id number] Report ID: [id number]
== END 2020-11-04 13:34 | disposition home or self-care (01) ==
LOC: OR 08:17
PROVIDERS: ATTEND Otolaryngology Facial Plastic Surgery
PROC: 0JB10ZZ Excision of Face Subcutaneous Tissue and Fascia, Open Approach (ICD-10-PCS; principal; 2020-11-04 10:15)
DX: D37.09 Neoplasm of uncertain behavior of other specified sites of the oral cavity (principal); K13.29 Other disturbances of oral epithelium, including tongue; R13.12 Dysphagia, oropharyngeal phase; Z20.822 Contact with and (suspected) exposure to COVID-19
CPT/HCPCS: 82947 ×2; 88305; 42100; U0003; J2704; J2370; J3010; J1100 ×2; P9045; J7030 ×2

== ENCOUNTER 2021-10-15 03:50 | Inpatient (IN) | payer OTHER ==
--- OUTSIDE RECORDS SUMMARY | 2021-10-15 03:53 | XMS REPORT | Clinical Summary ---
:1935 Author Organization [facility] Address [address] [place] [address] Care Team Providers Name Role Phone Arjun Soto MD, Newton Araujo Primary Care Provider [phone] Anton Dye MD Unavailable Unavailable Anton Dye MD Unavailable Unavailable Emma Norman MD Unavailable Romina Giordano MD Unavailable Pipo Dominguez MD Unavailable Sang Soto MD, Sang King Unavailable Unavaila Hong Germain NP Unavailable Haley Cisneros Unavailable Arjun Soto MD, Eduardo M Unavailable Allergies No known active allergies Medications Medication Sig Dispensed Refills Start Date End Date Status aspirin 81 mg chewable Chew 81 mg. 0 Active tablet DULoxetine (CYMBALTA) 60 Take 60 mg by 0 Active mg capsule mouth. sitaGLIPtin-metFORMIN Take by mouth. 0 Active (JANUMET) 50 mg-1,000 mg per tablet pregabalin (LYRICA) 75 mg Take 75 mg by 0 Active capsule mouth. magnesium oxide (MAOX) Take 400 mg by 0 Active 400 mg tablet mouth. omeprazole (PriLOSEC) 40 Take 40 mg by 0 Active MG capsule mouth. levothyroxine (SYNTHROID, Take by mouth. 0 Active LEVOTHROID) 100 mcg tablet tamsulosin (FLOMAX) 0.4 Take 0.4 mg by 0 Active mg 24 hr capsule mouth. valACYclovir (VALTREX) Take 500 mg by 0 Active 500 mg tablet mouth. VERAMYST 27.5 0 03/12/2016 Activ e mcg/actuation nasal spray atorvastatin (LIPITOR) 10 0 12/12/2016 Active mg tablet Active Problems Problem Noted Date Neoplasm of base of tongue 11/07/2012 Medical History Medical History Date Comments Cancer Diabetes mellitus Social History Tobacco Use Types Packs/Day Years Used Date Never Assessed Sex Assigned at Date Recorded Not on file Obstetrics History Last Filed Vital Signs Not on file Plan of Treatment Health Maintenance Due Date Last Done Comments COVID-19 Vaccination (#1) 1935 Results Not on fileafter 10/15/2020 Insurance Payer Benefit Plan Subscriber ID Effective Phone Address Typ e / Group Dates MEDICARE MEDICARE PART [id number] 2001-Pres [phone] [facility] Medicare A AND B ent [id number] [employer] [address] [facility] [place] [address] FOR [id number] 2015-Pre [address] [employer] [place] Other [address] Mike Peña Personal/Family Self 1935 [address]) [address] [phone] [facility] ([place]) [place] [id number] Mike Peña Personal/Family Self 1935 [address]Home) [place] [address] Care Teams Cnc Operator Relationship Specialty Start Date End Date Newton Díaz Jr., MD PCP - General 04/17/15 [facility] [place] [address] Anton Dye MD PCP - External Referring 08/17/12 Anton Dye MD PCP - External Follow Up A Emma Norman MD Physician 04/24/15 [facility] Joey Jett [address] [address] Romina Giordano MD Physician 04/24/[address] [place] [id number] Pipo Dominguez MD Physician 04/24/[address] [place] [id number] Sang Domínguez Jr., Physician 04/24/15 Hong Whittaker, REINA Nurse Practitioner 04/24/[address] [place] [id number] Haley Cisneros [employer] 04/24/[address] [place] [address] [address] [place] [address] Newton Díaz Jr., MD Physician 04/24/[address] [place] [id number]
--- OUTSIDE RECORDS SUMMARY | 2021-10-15 03:56 | XMS REPORT | Continuity of Care Document ---
:1935 Author Organization [facility] t Address [address] [place] [address] Care Team Providers Name Role Phone ADRIANA MORGAN JR Primary Care Physician Unavailable OSKAR MOSS Attending Clinician Unavailable NEELA MORRELL Attending Clinician Unavailable Jodi WALLIS, Johanna Attending Clinician Unavailable Oskar Moss MD Attending Clinician Samir Zamorano MD Attending Clinician CHEYANNE YEN Attending Clinician Unavailable KAVYA YEN Attending Clinician Unavailable COLIN ZULEAT Attending Clinician Unavailable SAMIR ZAMORANO Admitting Clinician Unavailable Samir Zamorano MD Admitting Clinician KAVYA YEN Admitting Clinician Unavailable COLIN ZULETA Admitting Clinician Unavailable Payers Payer Name Policy Type Policy Number Effective Date Expiration Date S [place] MEDICARE PART A [id number] 2001 \\T\\ B 00:00:00 FOR LIFE [id number] 2016 00:00:00 MEDICARE PART A [id number] 2001 AND B 00:00:00 FOR LIFE [id number] 2015 00:00:00 Problems Condition Condition Condition Status Onset Resolution Last Treating Co mments Source Name Details Category Date Date Treatment Clinician Date Orthostati Orthostati Disease Active U nivers c syncope c syncope 2-27 ity of 00:00: [place] [facility] Symptomati Symptomati Disease Active U nivers c anemia c anemia 2-27 ity of 00:00: [place] [facility] Iron Iron Disease Active Univers deficiency deficiency 2-27 it y of anemia due [place] chronic [place] chronic 00 Me dical blood loss blood loss Br anch Melena Melena Disease Active Univers 2-26 ity of 00:00: [place] [facility] GI bleed GI bleed Disease [facility] Center 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 [facility] 3 3 [facility] Hypothyroi Hypothyroi Disease Active [facility] dism dism 3[facility] Acute Acute Disease Active [facility] blood loss blood loss 3- [facility] anemia anemia 00:00: [facility] Center Lower Lower Disease Active [facility] gastrointe gastrointe 3- [facility] [place] [facility] stinal stinal 00:00: Medical bleeding bleeding 00 Center RAHUL (acute RAHUL (acute Disease Active [facility] kidney kidney 3 [facility] injury) injury) 00:00: Medical 00 Center 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 0-11 ity of nodules nodules 00:00: [place] [facility] Primary Primary Disease Active 2016-02 Univers hypothyroi hypothyroi 0-11 it y of dism dism 00:00: [address] 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 00:00: [place] 00 MD [facility] Allergies, Adverse Reactions, Alerts Allergy Allergy Status Severity Reaction(s) Onset Inactive Treating Comm ents Source Name Type Date Date Clinician NO KNOWN Drug Active Univers ALLERGIE Class ity of S [facility] Family History Family Member Diagnosis Comments Start Date Stop Date Source Natural mother Early [facility] Natural mother Heart disease [facility] Paternal grandmother Diabetes [facility] Natural sister Diabetes [facility] Social History Social Habit Start Date Stop Date Quantity Comments Source Exposure to Not sure University of SARS-CoV-2 [place] [facility] (event) Branch History SDOH [facility] Alcohol Frequency Medical Center History SDOH [facility] Alcohol Std Medical Cente r Drinks History SDOH [facility] Alcohol Binge Medical Lisa ter Alcohol intake 2017-11-18 2017-11-18 Current [facility]er [facility]00 of alcohol Medical Center (finding) Alcohol Comment 2017-11-16 2017-11-16 once in a while [facility] 00:[facility] Center Tobacco use and 2017-04-15 2017-04-[address] [facility] exposure 00:00:00 00:00:00 [facility] Center Sex Ass[birth year] At [birth year] Universit y of 00:00:00 00:00:00 [place] MD [facility] Smoking Status Start Date Stop Date Source Former smoker 2020-04-13 00:00:00 2020-04-13 00:00:00 [facility] [place] Medications Ordered Filled Start Stop Current Ordering Indication Dosage Frequency Signature Comments Components Source Medication Medication Date Date Medication? Clinician (SIG) Name Name lactulose Yes 45mL 45 mL, Univer s (CEPHULAC) 04-15 Oral, ity of solution 45 15:00: [place] 00 First dose Medical (after Branch last modificati on) on Wed04/15/20 at 0900, Until Discontinu ed, Routine iron 2020- No 1000mg 1,000 mg, Unive rs dextran 04-14 IV ity of (INFED) 21:00: 08:59 [place]fusion[place] 1,000 mg in 00 :00 ONCE, 1 Medic al NaCl 0.9% dose, Sun Branc h (NS) 500 mL 04/14/20 at IV infusion 1500, 500 mL iron 2020- No 25mg 25 mg, IV Univers dextran 04-14 Piggyback, ity o f (INFED) 25 20:00: 07:59 ONCE, 1 [place] mg in NaCl 00 :00 dose, Sun Medi alphonso 0.9% (NS) 04/14/20 at Bran ch 100 mL IV 1400, 100 piggyback mL valACYclovi Yes 500mg Take 500 U nivers r 500 mg 2-28 mg by ity of tablet 18:10: mouth. [address] tamsulosin Yes .4mg Take 0.4 Uni vers 0.4 mg 24 2-28 mg by ity of hr capsule 18:10: mouth. [address] valACYclovi Yes 500mg Take 500 U nivers r 500 mg 2-28 mg by ity of tablet 18:10: mouth. [address] tamsulosin Yes .4mg Take 0.4 Uni vers 0.4 mg 24 2-28 mg by ity of hr capsule 18:10: mouth. [address] aspirin 81 2020- No 81mg Take 81 mg Univers mg chewable 04-14 by mouth. it y of tablet 16:52: 00:00 [place] 24 : [facility] sitagliptan 2020- No 1{tbl} Take 1 U nivers -metformin 04-14 tablet by ity of 50-500 mg 16:52: 00:00 mouth 2 [place] per tablet 24 :00 (two) Medical times [place] daily with meals. magnesium 2020- No 400mg Take 400 Un stephanie oxide 400 04-14 mg by ity of mg tablet 16:52: 00:00 mouth 2 [place] 24 :00 (two) [facility] times [place] daily. omeprazole 2020- No 40mg Take 40 mg Univers 40 mg 04-14 by mouth. ity of capsule 16:52: 00:00 [place] 24 :00 [facility] NaCl 0.9% Yes 1000mL at 75 Unive rs (NS) IV 2-28 mL/hr, IV ity of infusion 15:30: Infusion, [place] 1,000 mL 00 CONTINUOUS Medic al , Starting [facility] 04/14/20 at 0930, Until Discontinu ed, Routine atorvastati Yes 40mg 40 mg, Univ ers n (LIPITOR) 2-28 Oral, QHS, it y of tablet 40 03:00: [place] dose [place] mg 00 on [facility] 04/13/20 at Branch 2100, Until Discontinu ed, Routine ferrous 2020- No [id number] 325mg Take 1 Uni vers sulfate 04-14 tablet by ity of (IRON) 325 00:00: 05:59 mouth [place] mg (65 mg 00 :00 every Medical iron) other day Branch tablet for 135 doses. ferrous 2020- No [id number] 325mg Take 1 Uni vers sulfate 04-14 tablet by ity of (IRON) 325 00:00: 05:59 mouth [place] mg (65 mg 00 :00 every Medical iron) other day Branch tablet for 135 doses. pantoprazol 2020- No [id number] 40mg Take 1 Univers e 40 mg EC 04-14 tablet by ity of tablet 00:00: 04:59 mouth 2 [place] 00 :00 (two) Medical times [place] daily for 30 days. pantoprazol 2020- No [id number] 40mg Take 1 Univers e 40 mg EC 04-14 tablet by ity of tablet 00:00: 04:59 mouth 2 [place] 00 :00 (two) Medical times [place] daily for 30 days. lactulose 2020- No 30mL 30 mL, Unive rs (CEPHULAC) 04-13 Oral, ity of solution 30 17:15: 15:07 DAILY, [place] mL 00 :10 First dose Medical on [facility] 04/13/20 at 1115, Until Discontinu ed, Routine valACYclovi Yes 500mg 500 mg, Un stephanie r (VALTREX) 04-13 Oral, ity of tablet 500 15:00: DAILY, [place] mg 00 First dose Medical on [facility] 04/13/20 at 0900, Until Discontinu ed, LORENA tamsulosin Yes .4mg 0.4 mg, Univ ers (FLOMAX) 04-13 Oral, ity of capsule 0.4 15:00: DAILY, [place] mg 00 First dose Medical on [facility] 04/13/20 at 0900, Until Discontinu ed, Routine DULoxetine Yes 60mg 60 mg, Unive rs (CYMBALTA) 04-13 Oral, ity of capsule 60 15:00: DAILY, [place] mg 00 First dose Medical on [facility] 04/13/20 at 0900, Until Discontinu ed, Routine Sliding 2020- Yes Subcutaneo Univ ers Scale 04-13 us, TID ity of Insulin - 14:00: MEALS+HS, [place] Lispro 00 First dose Medical (HumaLOG) + on Sat Branch Fsbg 04/13/20 at Testing 0800, Until Discontinu ed, Routine levothyroxi 2020- Yes 100ug 100 mcg, U nivers ne 04-13 Oral, ity of (SYNTHROID) 12:00: QAM-0600, [place] tablet 100 00 First dose Med ical mcg on Sat Branch 04/13/20 at 0600, Until Discontinu ed, Routine KCL 2020-2020- No 40meq 40 mEq, Univers (KLOR-CON 04-13 Oral, ity of M20) tablet 08:30: 07:59 ONCE, 1 [place] 40 mEq 00 :00 dose, [facility] Medical 04/13/20 at Branch 0230, Routine KCL 2020- No 40meq 40 mEq, IV Unive rs (POTASSIUM 04-13 Piggyback, it y of CHLORIDE) 08:30: 11:04 ONCE, 1 [place] 40 mEq in 00 :00 dose, Sat Medic al NaCl 0.9% 04/13/20 at [facility] (NS) 0230, 250 piggyback mL pantoprazol Yes 40mg 40 mg, IV U nivers e 04-13 Piggyback, ity of (PROTONIX) 06:00: Q12H, [place] 40 mg in 00 First dose Medic al NaCl 0.9% on [facility] Branch (NS) 100 mL 04/13/20 at MINI-BAG 0000, Until Discontinu ed, 100 mL glucagon Yes 1mg 1 mg, Univers (GLUCAGEN 04-13 Intramuscu ity of DIAGNOSTIC 05:40: lar, PRN, [place] KIT) 07 Starting Medical injection 1 Wed Branch mg 04/12/20 at 2340, Until Discontinu ed, LORENA, Blood Glucose < or = 70 mg/dL and patient is unable to swallow or has mental changes. dextrose 50 2020-0 Yes 25mL 25 mL, Univ ers % in water 04-13 Slow IV ity of (D50W) 05:40: Push, PRN, [place] injection 07 Starting Medica l 25 mL Fri Branch 04/12/20 at 2340, Until Discontinu ed, OLRENA, Blood Glucose < or = 70 mg/dL and patient is unable to swallow or has mental status changes. pregabalin 2020- No 75mg Take 75 mg Univers 75 mg 04-13 by mouth. ity of capsule 05:35: 00:00 [place] 21 :00 Medical Branch omeprazole 2017-02 Yes 40mg Take 40 mg U nivers (PriLOSEC) 2-04 by mouth. ity of 40 MG 14:41: [place] capsule 18 MD Jacklyn braden [facility] levothyroxi 2017-02 Yes Take by Uni vers ne 2-04 mouth. ity of (SYNTHROID, 14:41: [place] LEVOTHROID) [address] [facility] aspirin 81 2017-02 Yes 81mg Chew 81 Univ ers mg chewable 2-04 mg. ity of tablet 14:41: [place] [id number] MD Jacklyn braden [facility] DULoxetine 2017-02 Yes 60mg Take 60 mg U nivers (CYMBALTA) 2-04 by mouth. ity of 60 mg 14:41: [place] [facility] pregabalin 2017-02 Yes 75mg Take 75 mg U nivers (LYRICA) 75 2-04 by mouth. ity of mg capsule 14:41: [place] [address] [facility] magnesium 2017-02 Yes 400mg Take 400 Uni vers oxide 2-04 mg by ity of (MAOX) 400 14:41: mouth. [place] mg tablet 18 MD Jacklyn braden [facility] sitaGLIPtin 2017-02 Yes Take by Uni vers -metFORMIN 2-04 mouth. ity of (JANUMET) 11:58: [place] 50 mg-1,000 17 [facility] atorvastati 2017-02 Yes hyperlipide 40mg QD Take [address] n (LIPITOR) 0-04 bety by mouth Luke s 40 MG 13:48: daily. Medical tablet 51 Center levothyroxi 2017-02 Yes hypothyroid 100ug Take [address] ne 0-04 ism mcg by Monse (SYNTHROID, 13:48: mouth Medic al LEVOTHROID) 51 Every Center 100 MCG morning on tablet an empty stomach. CASEYoxetine 2017-02 Yes diabetic 60mg QD Take [address] (CYMBALTA) 0-04 peripheral by mouth [facility]ukes 60 MG 13:48: neuropathy daily. Medi alphonso capsule 51 Center SITagliptin 2017-02 Yes type 2 1{tbl} Take [address] -metFORMIN 0-04 diabetes tablet by Lukes (JANUMET) 13:48: mellitus mouth 2 M edical 50-1,000 mg 51 (two) Center per tablet times daily with breakfast and dinner. valACYclovi 2017-02 Yes 500mg QD Take [address] r (VALTREX) 0-04 mg by [facility]ukes 500 MG 13:48: mouth Medical tablet 51 daily. Center tamsulosin 2017-02 Yes benign .4mg QD Take 0.[address] (FLOMAX) 0-04 prostatic mg by Lukes 0.4 mg Cp24 13:48: hyperplasia mouth Medical 24 hr 51 with lower daily. Center capsule urinary tract sx magnesium 2017-02 Yes 400mg Q.5D Take [address] oxide 0-04 mg by Lukes (MAG-OX) 13:48: mouth 2 Medica l 400 mg 51 (two) Center tablet times daily. omeprazole 2017-02 Yes gastroesoph 40mg QD Take [address] (PRILOSEC) 0-04 ageal by mouth Luke s 40 MG 13:48: reflux daily. Medical capsule 51 disease Center midodrine 2017-02 Yes 10mg Q.[id number] Take [address] (PROAMATINE 0-04 [id number] by mouth 3 Lukes ) 10 MG 13:48: 3D (three) Medical tablet 51 times Center daily. fluticasone 2017-02 Yes allergic 2{spray QD [address] (VERAMYST) 0-04 rhinitis } by Nasal L ukes 27.5 13:48: route Medical mcg/actuati 51 daily. Center on nasal spray tamsulosin 2016-02 Yes .4mg Take 0.4 Uni vers (FLOMAX) 1-22 mg by ity of 0.4 mg 24 12:59: mouth. [place] hr capsule 38 MD [facility] valACYclovi 2016-02 Yes 500mg Take 500 U nivers r (VALTREX) 1-22 mg by ity of 500 mg 12:59: mouth. [place] tablet 38 MD [facility] atorvastati 2016-02 Yes Univankur s n (LIPITOR) 0-28 ity of 10 mg 00:00: [place] tablet 00 MD [facility] levothyroxi Yes Univankur s ne 100 mcg 8-09 ity of tablet 00:00: Medical Branch levothyroxi Yes Univer s ne 100 mcg 8 ity of tablet 00:00: 00 Medical Branch midodrine 2020- No 10mg 10 mg 3 Univ ers 10 mg 804-12 (three) ity of tablet 00:00: 00:00 times [place] 00 :00 daily. Medical Branch atorvastati Yes 40mg 40 mg at Un stephanie n 40 mg 7-30 bedtime. ity of tablet 00:00: 00 Medical Branch DULoxetine Yes Univers 60 mg 7-30 ity of capsule 00:00: Medical Branch atorvastati Yes 40mg 40 mg at Un stephanie n 40 mg 7-30 bedtime. ity of tablet 00:00: Medical Branch DULoxetine Yes Univers 60 mg 7-30 ity of capsule 00:00: 00 Medical Branch VERAMYST Yes Univers 27.5 1-26 ity of mcg/actuati 00:00: [place] on nasal 00 MD ancelmo braden [facility] fluticasone 2020- No Unive rs (VERAMYST) 1 02- ity of 27.5 00:00: 00:00 [place] mcg/actuati 00 :00 Medical on nasal Branch spray Vital Signs Vital Name Observation Time Observation Value Comments Source Heart rate 2020-04-14 17:03:00 83 [facility] Body temperature 2020-04-14 17:03:00 35.72 Katiana [facility] Respiratory rate 2020-04-14 17:03:00 16 /min [facility] Oxygen saturation in 2020-04-14 17:03:00 98 /min [facility] Arterial blood by [facility] Pulse oximetry Branch Systolic blood 2020-04-14 17:03:00 143 mm[Hg] [facility] sity of pressure [facility] Diastolic blood 2020-04-14 17:03:00 79 mm[Hg] [facility] rsity of pressure [facility] Body weight 2020-04-13 05:24:00 83 kg [facility] BMI 2020-04-13 05:24:00 24.14 kg/m2 [facility] Procedures Procedure Date / Time Performing Clinician Source Performed POCT GLUCOSE 2020-04-14 13:32:00 Isa [facility] (AUTOMATED) [facility] CBC WITHOUT DIFF 2020-04-14 11:19:00 Dorota [facility] BASIC METABOLIC PANEL 2020-04-14 11:18:00 Siri [facility] (NA, K, CL, CO2, Medical [place] GLUCOSE, BUN, CREATININE, CA) FIBRINOGEN 2020-04-14 11:18:00 Dorota [facility] MAGNESIUM 2020-04-14 11:18:00 Norma [facility] POCT GLUCOSE 2020-04-14 04:02:00 Isa [facility] (AUTOMATED) [facility] PREPARE PACKED RBC 2020-04-13 23:53:17 Norma [facility] POCT GLUCOSE 2020-04-13 22:56:00 Isa [facility] (AUTOMATED) [facility] CBC WITHOUT DIFF 2020-04-13 20:31:00 Dorota [facility] TRANSFUSE PACKED RBC 2020-04-13 19:01:18 Dorota [facility] POCT GLUCOSE 2020-04-13 18:26:00 Isa [facility] (AUTOMATED) [facility] PREPARE PACKED RBC 2020-04-13 15:07:12 Dorota [facility] POCT GLUCOSE 2020-04-13 14:11:00 Isa [facility] (AUTOMATED) [facility] TROPONIN I 2020-04-13 12:20:00 Dorota [facility] CBC WITHOUT DIFF 2020-04-13 12:20:00 Dorota [facility] TRANSFUSE PACKED RBC 2020-04-13 10:58:26 Dorota [facility] ABORH CONFIRMATION 2020-04-13 07:07:00 JenniferSamir [facility] HB ABO GROUPING 2020-04-13 06:20:00 Dorota [facility] COMP. METABOLIC PANEL 2020-04-13 06:19:00 Dorota [facility] ([id number]) [facility] IRON PANEL 2020-04-13 06:19:00 Dorota, [facility] CBC WITH DIFF 2020-04-13 06:19:00 Dorota, [facility] GLYCOSYLATED HEMOGLOBIN 2020-04-13 06:19:00 Dorota [facility] (A1C) [facility] PROTHROMBIN TIME / INR 2020-04-13 06:19:00 Dorota, [facility] ACTIVATED PARTIAL 2020-04-13 06:19:00 Dorota, [facility] THRMPLAS [facility] FERRITIN SERUM 2020-04-13 06:19:00 Dorota [facility] TROPONIN I 2020-04-13 06:19:00 Dorota [facility] Plan of Care Planned Activity Planned Date Details Comments Source Future Scheduled 2021-08-20 COVID-19 Vaccination [facility] Test 03:35:26 (#1) [code = COVID-19 [facility] Vaccination (#1)] Center Encounters Start End Encounter Admission Attending Care Care Encounter Source Date/Time Date/Time Type Type Clinicians Facility Department ID 2020-12-15 Inpatient U [facility] [id number] Univers 01:47:44 OSKAR [facility] 2021-09-08 2021-09-08 [facility] [id number] Univers 14:00:00 14:00:00 NEELA [id number] ity [facility] 2020-04-16 2020-04-16 Transition Marcy Zapata [id number] Univers 00:00:00 00:00:00 of Care Johanna Rand [id number] it y of [place] [id number] [place] [id number] [place] [address] Branch 2020-04-12 2020-04-14 [facility] Oskar Moss [id number] [facility] 23:17:00 12:10:00 Samir Pierre [id number] ity [facility] [id number] [place] as [id number] [facility] 100 Branch 2019-08-30 2019-08-30 Outpatient ASHLEE YEN [facility] [id number] 00:00:00 00:00:00 CHEYANNE braden Results Test Description Test Time Test Comments Results Result Comments Source POCT GLUCOSE (AUTOMATED) 2020-04-14 13:34:00 Test Item Value Reference Range Interpretation Comme nts POCT GLU (test code = 1994376383) 140 mg/dL 70-110 H Lab Interpretation (test code = 38436-6) Abnormal [facility] METABOLIC PANEL (NA, K, CL, CO2, GLUCOSE, BUN, CREATININE, CA)2020-04-14 12:01:00 Test Item Value Reference Range Interpretation Comments NA (test code = 135 mmol/L 135-145 6718431928) K (test code = 4.3 mmol/L 3.5-5 4911499414) CL (test code = 106 mmol/L 98-108 2386436509) CO2 TOTAL (test code = 23 mmol/L 23-31 5698440214) AGAP (test code = 2-16 9775208101) BUN (test code = 11 mg/dL 7-23 4368409906) GLUCOSE (test code = 118 mg/dL 70-110 H 2780593804) CREATININE (test code = 0.98 mg/dL 0.6-1.25 6252832198) CALCIUM (test code = 8.5 mg/dL 8.6-10.6 L 0578556488) eGFR Calculation mL/min/1.73m2 (Non-) (test code = 4030282320) eGFR Calculation mL/min/1.73m2 () (test code = 1955458249) YUMI (test code = YUMI) Association of Glomerular Filtration Rate (GFR) and Staging of Kidney Disease* + --+ --+ ------+| GFR (mL/min/1.73 m2) ?| With Kidney Damage ?| ?Without Kidney Damage+ --------+ --------+ +| ?>90 ?| ?Stage one ?| ? Normal ?+ ---+ ---+ -------+| ?60-89 ?| ?Stage two ?| ? Decreased GFR ? + --+ --+ ------+| ?30-59 ?| ?Stage three ?| ? Stage three ? + --+ --+ ------+| ?15-29 ?| ?Stage four ? | ? Stage four ?+ ---+ ---+ -------+| ?<15 (or dialysis) ? ?| ?Stage five ? | ? Stage five ?+ ---+ ---+ -------+ *Each stage assumes the associated GFR level has been in effect for at least three months. ?Stages 1 to 5, with or without kidney disease, indicate chronic kidney disease. Notes: Determination of stages one and two (with eGFR >59mL/min/1.73 m2) requires estimation of kidney damage for at least three months as defined by structural or functional abnormalities of the kidney, manifested by either:Pathological abnormalities or Markers of kidney damage (including abnormalities in the composition of the blood or urine or abnormalities in imaging tests). Lab Interpretation Abnormal (test code = 45941-2) [facility]:01[facility]00 Test Item Value Reference Range Interpretation Comments MAGNESIUM (test code = 4991332482) 1.9 mg/dL 1.7-2.4 Lab Interpretation (test code = Normal 02686-6) [facility] 11:46:00 Test Item Value Reference Range Interpretation Comments Fibrinogen (test code = 4954833958) 307 mg/dL 167-453 Lab Interpretation (test code = Normal 98832-1) [facility] WITHOUT [id number] 11:42:00 Test Item Value Reference Range Interpretation Comments WBC (test code = 6690-2) See_Comment [A utomated message] The system [employer] generated this result transmit rigoberto reference range : 4.20 - 10.70 10*3/?L. The reference range was not used to interpret this result as normal/abnormal . RBC (test code = 789-8) See_Comment L [Au tomated message] The system [employer] generated this result transmit rigoberto reference range : 4.26 - 5.52 10* 6/?L. The reference r pierce was not used to interpret this result as normal/abnormal . HGB (test code = 718-7) 9.3 g/dL 12.2-16.4 L HCT (test code = 4544-3) 28.5 % 38.4-49.3 L MCH (test code = 785-6) 27.1 pg 26.1-32.7 MCV (test code = 787-2) 83.1 fL 81.7-95.6 MCHC (test code = 786-4) 32.6 g/dL 31.2-35 PLT (test code = 777-3) See_Comment [Au tomated message] The system [employer] generated this result transmit rigoberto reference range : 150 - 328 10*3/?L. The reference range was not used to interpret this result as normal/abnormal . MPV (test code = 9.5 fL 9.8-13 L 72879-5) RDW-CV (test code = 15.0 % 12.1-15.4 788-0) RDW-SD (test code = 45.3 fL 38.5-51.6 96134-8) NRBC x10^3 (test code = <0.01 See_Comment [Au tomated message] [id number]) The system [employer] generated this result transmit rigoberto reference range : 10*3/?L. The reference range was not used to interpret this result as normal/abnormal . NRBC/100 WBC (test code See_Comment [Au tomated message] = [id number]) The system [facility] generated this result transmit rigoberto reference range : 0.0 - 10.0 /100 WBC s. The reference r pierce was not used to interpret this result as normal/abnormal . IPF % (test code = 5671827436) Lab Interpretation (test Abnormal code = 22196-5) [facility]2020-04-14 04:04:00 Test Item Value Reference Range Interpretation Comments POCT GLU (test code = 0755054087) 137 mg/dL 70-110 H Lab Interpretation (test code = Abnormal 51412-8) [facility] Hospital[facility]cosylated Hemoglobin (A1C)2020-04-14 00:56:00HGB T4ZWaqlubn: %A1c cannot be calculated due to low hemoglobin. [facility] SERVICESUnMethodist HospitalPrepare Packed RBC (in units), 1 [id number] 23:53:17 Test Item Value Reference Range Interpretation Comments Unit Blood Type (test O Pos code = 4410) ISBT Blood Type Code (test code = 297358) Unit Number (test [id number] code = 4411) Blood Expiration Date & Time (test code = 821669) Status Information Issued (test code = 4412) Product Red Blood Cells Identification (test code = 4413) Product Code (test X6846H40 Performed at [facility] [facility] code = 4414) Laboratory Services - [facility] Blood [address] [address]Xxyz Free: [phone] A No. [id number] Cross Match Result Compatible (test code = 4409) [facility]2020-04-13 22:58:00 Test Item Value Reference Range Interpretation Comments POCT GLU (test code = 8485276321) 117 mg/dL 70-110 H Lab Interpretation (test code = Abnormal 15304-1) [facility] [id number] 20:37:00 Test Item Value Reference Range Interpretation Comments WBC (test code = 6690-2) See_Comment [A utomated message] The system [employer] generated this result transmit rigoberto reference range : 4.20 - 10.70 10*3/?L. The reference range was not used to interpret this result as normal/abnormal . RBC (test code = 789-8) See_Comment L [Au tomated message] The system [employer] generated this result transmit rigoberto reference range : 4.26 - 5.52 10* 6/?L. The reference r pierce was not used to interpret this result as normal/abnormal . HGB (test code = 718-7) 7.5 g/dL 12.2-16.4 L HCT (test code = 4544-3) 23.1 % 38.4-49.3 L MCH (test code = 785-6) 27.4 pg 26.1-32.7 MCV (test code = 787-2) 84.3 fL 81.7-95.6 MCHC (test code = 786-4) 32.5 g/dL 31.2-35 PLT (test code = 777-3) See_Comment [Au tomated message] The system [employer] generated this result transmit rigoberto reference range : 150 - 328 10*3/?L. The reference range was not used to interpret this result as normal/abnormal . MPV (test code = 9.1 fL 9.8-13 L 15378-5) RDW-CV (test code = 14.6 % 12.1-15.4 788-0) RDW-SD (test code = 44.7 fL 38.5-51.6 68440-8) NRBC x10^3 (test code = <0.01 See_Comment [Au tomated message] [id number]) The system [employer] generated this result transmit rigoberto reference range : 10*3/?L. The reference range was not used to interpret this result as normal/abnormal . NRBC/100 WBC (test code See_Comment [Au tomated message] = 7685266699) The system [employer] generated this result transmit rigoberto reference range : 0.0 - 10.0 /100 WBC s. The reference r pierce was not used to interpret this result as normal/abnormal . IPF % (test code = 3589962238) Lab Interpretation (test Abnormal code = 50399-8) [facility]2020-04-13 18:27:00 Test Item Value Reference Range Interpretation Comments POCT GLU (test code = 1286851965) 204 mg/dL 70-110 H Lab Interpretation (test code = Abnormal 86057-0) [facility] HospitalPrepare Packed RBC (in units), 2 Units 2020-04-13 15:07:12 Test Item Value Reference Range Interpretation Comments Cross Match Result Compatible (test code = 4409) ISBT Blood Type Code (test code = 630889) Unit Blood Type (test O Pos code = 4410) Unit Number (test [id number] code = 4411) Blood Expiration Date & Time (test code = 588580) Status Information Issued (test code = 4412) Product Red Blood Cells Identification (test code = 4413) Product Code (test [id number] Performed at [facility] code = 4414) Laboratory Services - [facility] Blood [address] [address]Mvrn Free: [phone] A No. [id number] [facility]2020-04-13 14:16:00 Test Item Value Reference Range Interpretation Comments POCT GLU (test code = 8097550328) 145 mg/dL 70-110 H Lab Interpretation (test code = Abnormal 63236-1) [facility] HospitalTROPONIN [id number] 13:19:00 Test Item Value Reference Range Interpretation Comments TROPONIN I (test 0.049 ng/mL See_Comment H [Automated code = 1860951252) message] The system which generated this result transmitted reference range : <=0.034. The reference range was not used to interpret this result as normal/abnormal . YUMI (test code = Equal or Less than YUMI) 0.034 ng/ml---Normal ?Note: Cardiac troponin begins to rise 3-4 hours after the onset of ischemia. Repeat in 4-6 hours if the sample was drawn within 3-4 hours of the onset of the symptom and found normal. Between 0.035 and 0.120 ng/mL--- Borderline. Questionable myocardial injury or necrosis ? ?Note: Serial measurement may be necessary to confirm or exclude the diagnosis of myocardial injury or necrosis; Clinical correlation (symptoms, EKGs, imaging studies, and others) required; Repeat in 4-6 hours if clinically indicated. ? Equal or Higher than 0.121 ng/mL---Abnormal. Myocardial Injury or Necrosis Likely ? Biotin has been reported to cause a negative bias, interpret results relative to patient's use of biotin. ? Lab Interpretation Abnormal (test code = 11523-7) [facility] [id number] 12:54:00 Test Item Value Reference Range Interpretation Comments WBC (test code = 6690-2) See_Comment [A utomated message] The system [employer] generated this result transmit rigoberto reference range : 4.20 - 10.70 10*3/?L. The reference range was not used to interpret this result as normal/abnormal . RBC (test code = 789-8) See_Comment L [Au tomated message] The system [facility] generated this result transmit rigoberto reference range : 4.26 - 5.52 10* 6/?L. The reference r pierce was not used to interpret this result as normal/abnormal . HGB (test code = 718-7) 6.5 g/dL 12.2-16.4 L HCT (test code = 4544-3) 20.9 % 38.4-49.3 L MCH (test code = 785-6) 26.9 pg 26.1-32.7 MCV (test code = 787-2) 86.4 fL 81.7-95.6 MCHC (test code = 786-4) 31.1 g/dL 31.2-35 L PLT (test code = 777-3) See_Comment [Au tomated message] The system [facility] generated this result transmit rigoberto reference range : 150 - 328 10*3/?L. The reference range was not used to interpret this result as normal/abnormal . MPV (test code = 9.5 fL 9.8-13 L 81729-8) RDW-CV (test code = 15.1 % 12.1-15.4 788-0) RDW-SD (test code = 47.6 fL 38.5-51.6 99621-7) NRBC x10^3 (test code = <0.01 See_Comment [Au tomated message] [id number]) The system [facility] generated this result transmit rigoberto reference range : 10*3/?L. The reference range was not used to interpret this result as normal/abnormal . NRBC/100 WBC (test code See_Comment [Au tomated message] = 9113499946) The system [facility] generated this result transmit rigoberto reference range : 0.0 - 10.0 /100 WBC s. The reference r pierce was not used to interpret this result as normal/abnormal . IPF % (test code = 7153340483) Lab Interpretation (test Abnormal code = 82730-9) [facility] HospitalACTIVATED PARTIAL THRMPLAS [id number] 08:29:00 Test Item Value Reference Range Interpretation Comments APTT Patient (test code See_Comment L [Au tomated message] = 3173-2) The system [employer] generated this result transmitted ref erence range: 26 - 36 Seconds. The reference range was not used to int erpret this result as normal/abnormal . Lab Interpretation (test Abnormal code = 45688-1) [facility] HospitalABORH [id number] 07:49:38 Test Item Value Reference Range Interpretation Comments ABO & RH (test code O Positive Performe d at [facility] = 20) Laboratory [facility] [place] [address] s [id number] Free: [phone] A No. [id number] [facility] HospitalFERRITIN [id number] 07:36:00 Test Item Value Reference Range Interpretation Comments FERRITIN (test code = 5.9 ng/mL 18-464 L 8898682685) YUMI (test code = YUMI) Biotin has been reported to cause a negative bias, interpret results relative to patient's use of biotin. Lab Interpretation (test Abnormal code = 04387-5) [facility] HospitalType and Screen - ONCE [id number] 07:34:15 Test Item Value Reference Range Interpretation Comments ABO & RH (test code O POSITIVE Performe d at [facility] = 20) Laboratory [facility] Blood [facility] [address] [place] [address] s [id number] Free: [phone] A No. [id number] IAT (test code = Negative Performed a t [facility] 1185) Laboratory [facility] [address] [place] [address] s [id number] Free: [phone] A No. [id number] [facility] HospitalIRON [id number] 07:23:00 Test Item Value Reference Range Interpretation Comments IRON (test code = <10 50-160 L 7678303782) TIBC (test code = 403 ug/dL 250-410 3818487477) % FE SAT (test code = Unable to calculate 9865520644) because, either iron serum, total ir on binding capacit y, or both are less t loya the sensitivity of the analyzer. Lab Interpretation (test Abnormal code = 97882-7) [facility] HospitalTROPONIN [id number] 07:13:00 Test Item Value Reference Range Interpretation Comments TROPONIN I (test 0.046 ng/mL See_Comment H [Automated code = 1029684219) message] The system which generated this result transmitted reference range : <=0.034. The reference range was not used to interpret this result as normal/abnormal . YUMI (test code = Equal or Less than YUMI) 0.034 ng/ml---Normal ?Note: Cardiac troponin begins to rise 3-4 hours after the onset of ischemia. Repeat in 4-6 hours if the sample was drawn within 3-4 hours of the onset of the symptom and found normal. Between 0.035 and 0.120 ng/mL--- Borderline. Questionable myocardial injury or necrosis ? ?Note: Serial measurement may be necessary to confirm or exclude the diagnosis of myocardial injury or necrosis; Clinical correlation (symptoms, EKGs, imaging studies, and others) required; Repeat in 4-6 hours if clinically indicated. ? Equal or Higher than 0.121 ng/mL---Abnormal. Myocardial Injury or Necrosis Likely ? Biotin has been reported to cause a negative bias, interpret results relative to patient's use of biotin. ? Lab Interpretation Abnormal (test code = 35029-2) [facility] HospitalCOMP. METABOLIC PANEL (26821)2020-04-13 06:58:00 Test Item Value Reference Range Interpretation Comments NA (test code = 136 mmol/L 135-145 0663985814) K (test code = 3.1 mmol/L 3.5-5 L 3839592701) CL (test code = 107 mmol/L 98-108 6564993947) CO2 TOTAL (test code = 25 mmol/L 23-31 0425164251) AGAP (test code = 2-16 7338047224) BUN (test code = 17 mg/dL 7-23 2652153319) GLUCOSE (test code = 120 mg/dL 70-110 H 8713491955) CREATININE (test code = 0.87 mg/dL 0.6-1.25 2621562765) TOTAL BILI (test code = 0.4 mg/dL 0.1-1.6 5131557716) CALCIUM (test code = 7.3 mg/dL 8.6-10.6 L 7707015291) T PROTEIN (test code = 5.3 g/dL 6.3-8.2 L 4332840389) ALBUMIN (test code = 2.8 g/dL 3.5-5 L 5192764147) ALK PHOS (test code = 48 U/L 34-122 5776552096) ALTv (test code = 10 U/L 5-50 1742-6) AST(SGOT) (test code = 20 U/L 13-40 8315229019) eGFR Calculation mL/min/1.73m2 (Non-) (test code = 5187563716) eGFR Calculation mL/min/1.73m2 () (test code = 5262787401) YUMI (test code = YUMI) Association of Glomerular Filtration Rate (GFR) and Staging of Kidney Disease* + --+ --+ ------+| GFR (mL/min/1.73 m2) ?| With Kidney Damage ?| ?Without Kidney Damage+ --------+ --------+ +| ?>90 ?| ?Stage one ?| ? Normal ?+ ---+ ---+ -------+| ?60-89 ?| ?Stage two ?| ? Decreased GFR ? + --+ --+ ------+| ?30-59 ?| ?Stage three ?| ? Stage three ? + --+ --+ ------+| ?15-29 ?| ?Stage four ? | ? Stage four ?+ ---+ ---+ -------+| ?<15 (or dialysis) ? ?| ?Stage five ? | ? Stage five ?+ ---+ ---+ -------+ *Each stage assumes the associated GFR level has been in effect for at least three months. ?Stages 1 to 5, with or without kidney disease, indicate chronic kidney disease. Notes: Determination of stages one and two (with eGFR >59mL/min/1.73 m2) requires estimation of kidney damage for at least three months as defined by structural or functional abnormalities of the kidney, manifested by either:Pathological abnormalities or Markers of kidney damage (including abnormalities in the composition of the blood or urine or abnormalities in imaging tests). Lab Interpretation Abnormal (test code = 90718-4) [facility] HospitalPROTHROMBIN TIME / [id number] 06:57:00 Test Item Value Reference Range Interpretation Comments PROTIME PATIENT (test See_Comment [Auto mated message] code = 5964-2) The system wh ich generated this result transmitted ref erence range: 10.1 - 1 2.6 Seconds. The re ference range was not u sed to interpret this result as normal/abnor mal. INR (test code = 6301-6) Nor mal INR <1.1; Warfarin Therap eutic range 2.0 to 3. 0 or 2.5 to 3.5, dep ending upon the indica tions. Lab Interpretation (test Normal code = 08229-1) [facility] WITH [id number] 06:33:00 Test Item Value Reference Range Interpretation Comments WBC (test code = See_Comment [Automated 6690-2) message] The sy stem which generated this result transmitted reference range : 4.20 - 10.70 10*3/?L. The reference range was not used to interpret this result as normal/abnormal . RBC (test code = See_Comment L [Automated 789-8) message] The sy stem which generated this result transmitted reference range : 4.26 - 5.52 10*6/?L. The reference range was not used to interpret this result as normal/abnormal . HGB (test code = 5.3 g/dL 12.2-16.4 L 718-7) HCT (test code = 17.6 % 38.4-49.3 L 4544-3) MCV (test code = 85.4 fL 81.7-95.6 787-2) MCH (test code = 25.7 pg 26.1-32.7 L 785-6) MCHC (test code = 30.1 g/dL 31.2-35 L 786-4) RDW-SD (test code = 47.8 fL 38.5-51.6 88014-9) RDW-CV (test code = 15.4 % 12.1-15.4 788-0) PLT (test code = See_Comment [Automated 777-3) message] The sy stem which generated this result transmitted reference range : 150 - 328 10*3/ ?L. The reference r pierce was not used to interpret this result as normal/abnormal . MPV (test code = 9.6 fL 9.8-13 L 73923-4) NRBC/100 WBC (test See_Comment [Automat ed code = 2911491112) message] The system which generated this result transmitted reference range : 0.0 - 10.0 /100 WBCs. The refer ence range was not u sed to interpret th is result as normal/abnormal . NRBC x10^3 (test code <0.01 See_Comment [Auto mated = 8016791995) message] The s ystem which generated this result transmitted reference range : 10*3/?L. The reference range was not used to interpret this result as normal/abnormal . GRAN MAT (NEUT) % 63.5 % (test code = 770-8) IMM GRAN % (test code 0.70 % = 4199779721) LYMPH % (test code = 21.7 % 736-9) MONO % (test code = 8.0 % 5905-5) EOS % (test code = 5.6 % 713-8) BASO % (test code = 0.5 % 706-2) GRAN MAT x10^3(ANC) 3.87 10*3/uL 1.99-6.95 (test code = 5944195058) IMM GRAN x10^3 (test 0.04 10*3/uL 0-0.06 code = 6256636281) LYMPH x10^3 (test code 1.32 10*3/uL 1.09-3.23 = 731-0) MONO x10^3 (test code 0.49 10*3/uL 0.36-1.02 = 742-7) EOS x10^3 (test code = 0.34 10*3/uL 0.06-0.53 711-2) BASO x10^3 (test code 0.03 10*3/uL 0.01-0.09 = 704-7) Lab Interpretation Abnormal (test code = 41251-0) [facility]-GLUCOSE [id number] 07:54:00 Test Item Value Reference Range Interpretation Comments POC-GLUCOSE METER 87 mg/dL 70-[address] [facility] 6720 (BEAKER) (test code = [place] [address] 1538) [id number] 06:53:00 Test Item Value Reference Range Interpretation Comments MAGNESIUM (BEAKER) (test code = 1.7 mg/dL 1.6-2.6 627) BASIC METABOLIC [id number] 06:53:00 Test Item Value Reference Range Interpretation [...] PATIEN TS. CBC W/PLT COUNT & AUTO [id number] 06:50:00 Test Item Value Reference Range Interpretation [...] (BEAKER) (test code = 2801) HEMOGLOBIN AND [id number] 06:36:00 Test Item Value Reference Range Interpretation Comments HEMOGLOBIN (BEAKER) (test code = 8.2 GM/DL 13.7-17.5 L 410) HEMATOCRIT (BEAKER) (test code = 26.2 % 40.1-51.0 L 411) POCT-GLUCOSE [id number] 00:26:00 Test Item Value Reference Range Interpretation Comments POC-GLUCOSE METER 96 mg/dL 70-110 TESTED AT [place] [address] (BEAKER) (test code = [place] [address] 1538) [id number] 17:54:00 Test Item Value Reference Range Interpretation Comments MAGNESIUM (BEAKER) (test code = 1.5 mg/dL 1.6-2.6 L 627) BASIC METABOLIC [id number] 17:54:00 Test Item Value Reference Range Interpretation [...] NOT APPLICABLE FOR DIALYSIS PATIEN TS. PROTHROMBIN [id number] 17:33:00 Test Item Value Reference Range Interpretation Comments PROTIME (BEAKER) (test code = 15.0 seconds 11.7-14.7 H 759) INR (BEAKER) (test code = 370) 1.2 <=5.9 RECOMMENDED COUMADIN/WARFARIN INR THERAPY RANGESSTANDARD DOSE: 2.0 - 3.0 Includes: PROPHYLAXIS for venous thrombosis, systemic embolization; TREATMENT for venous thrombosis and/or pulmonary embolus.HIGH RISK: Target INR is 2.5-3.5 for patients with mechanical heart valves.HEMOGLOBIN AND [id number] 17:25:00 Test Item Value Reference Range Interpretation Comments HEMOGLOBIN (BEAKER) (test code = 8.9 GM/DL 13.7-17.5 L 410) HEMATOCRIT (BEAKER) (test code = 27.8 % 40.1-51.0 L 411) POCT-GLUCOSE [id number] 17:03:00 Test Item Value Reference Range Interpretation Comments POC-GLUCOSE METER 84 mg/dL 70-[address] [facility] 6720 (BEAKER) (test code = FABIOLA Tobias [facility] [address] 1538) POCT-GLUCOSE [id number] 15:23:00 Test Item Value Reference Range Interpretation Comments POC-GLUCOSE METER 85 mg/dL 70-[address] [facility] 6720 (BEAKER) (test code = [facility] Micheline [facility] [address] 1538) POCT-GLUCOSE [id number] 07:16:00 Test Item Value Reference Range Interpretation Comments POC-GLUCOSE METER 104 mg/dL 70-110 TESTED AT [place] [id number] (BEAKER) (test code = [facility] 1538) [address] HEMOGLOBIN AND [id number] 01:14:00 Test Item Value Reference Range Interpretation Comments HEMOGLOBIN (BEAKER) (test code = 6.7 GM/DL 13.7-17.5 L 410) HEMATOCRIT (BEAKER) (test code = 21.6 % 40.1-51.0 L 411) BASIC METABOLIC [id number] 20:19:00 Test Item Value Reference Range Interpretation [...] APPLICABLE FOR DIALYSIS PATIEN TS. HEPATIC FUNCTION [id number] 20:19:00 Test Item Value Reference Range Interpretation [...] slightly (test code = 347) hemolyzed PROTHROMBIN [id number] 20:10:00 Test Item Value Reference Range Interpretation Comments PROTIME (BEAKER) (test code = 15.6 seconds 11.7-14.7 H 759) INR (BEAKER) (test code = 370) 1.2 <=5.9 RECOMMENDED COUMADIN/WARFARIN INR THERAPY RANGESSTANDARD DOSE: 2.0 - 3.0 Includes: PROPHYLAXIS for venous thrombosis, systemic embolization; TREATMENT for venous thrombosis and/or pulmonary embolus.HIGH RISK: Target INR is 2.5-3.5 for patients with mechanical heart valves.CBC W/PLT COUNT & AUTO [id number] 20:01:00 Test Item Value Reference Range Interpretation [...] PERCENT (BEAKER) (test code = 2801) POCT-GLUCOSE [id number] 17:01:00 Test Item Value Reference Range Interpretation Comments POC-GLUCOSE METER 128 mg/dL 70-[address] [facility] 6720 (BEAKER) (test code = [place] 1538) [address] ANG, VISCERAL [id number] 16:35:00FINAL REPORT Mesenteric angiogram, 04/15/2017. History: GI bleed. Modality: Fluoroscopy. Sedation: Versed 1.0 mg and fentanyl 50 mcg was given intravenously for conscious sedation. Vital signs were monitored throughout the procedure by a nurse, and remained stable. Physician intra-service time was 30 minutes. Anesthesia: Two percent Lidocaine without epinephrine. Approach: Rightcommon femoral artery. Estimated blood loss: < 5 cc. Specimen: None. ear machine operator: Maxim casper MD. Nonprofit Fundraiser: None. Fluoroscopy Time: 2.1 min.Reference Air Kerma (Ka, r): 360 mGy. Technique:Informed written consent was obtained. Discussion of risks, [...] The needle was removed and a 4 Congolese micropuncture sheath was placed, and the 0.018 wire was exchanged for 0.035 inch J-wire. A 5 Congolese sheath was placed. A 5 Congolese Ag B catheter was used to select [...] abnormal vasculature.2. SMA injection: The superior mesenteric arteryand its branches are normal in appearance and [...] MDReport Verified Date/Time: 04/22/2017 16:35:40 Reading Location: [facility] P006J Ultrasound Reading Room POCT-GLUCOSE [id number] 11:27:00 Test Item Value Reference Range Interpretation Comments POC-GLUCOSE METER 238 mg/dL 70-110 H TESTED AT [place] [address] [facility] (test code = FABIOLA Tobias [facility] 1538) [address] POCT-GLUCOSE [id number] 08:08:00 Test Item Value Reference Range Interpretation Comments POC-GLUCOSE METER 146 mg/dL 70-110 H TESTED AT [place] [address] ([facility]) (test code = FABIOLA Tobias [facility] 1538) [address] TSH/FREE T4 IF [id number] 05:24:00 Test Item Value Reference Range Interpretation Comments THYROID STIMULATING HORMONE 4.44 uIU/mL 0.35-4.94 (BEAKER) (test code = 772) [id number] 05:17:00 Test Item Value Reference Range Interpretation Comments PHOSPHORUS (BEAKER) (test code = 4.2 mg/dL 2.3-4.7 604) [id number] 05:17:00 Test Item Value Reference Range Interpretation Comments MAGNESIUM (BEAKER) (test code = 1.8 mg/dL 1.6-2.6 627) BASIC METABOLIC [id number] 05:17:00 Test Item Value Reference Range Interpretation [...] PATIEN TS. CBC W/PLT COUNT & AUTO [id number] 04:53:00 Test Item Value Reference Range Interpretation [...] (BEAKER) (test code = 2801) HEMOGLOBIN AND [id number] 04:48:00 Test Item Value Reference Range Interpretation Comments HEMOGLOBIN (BEAKER) (test code = 9.1 GM/DL 13.7-17.5 L 410) HEMATOCRIT (BEAKER) (test code = 27.7 % 40.1-51.0 L 411) POCT-GLUCOSE [id number] 21:33:00 Test Item Value Reference Range Interpretation Comments POC-GLUCOSE METER 268 mg/dL 70-110 H TESTED AT [place] [address] ([facility]) (test code = [facility] 1538) [address] POCT-GLUCOSE [id number] 17:36:00 Test Item Value Reference Range Interpretation Comments POC-GLUCOSE METER 131 mg/dL 70-110 H TESTED AT [place] [address] ([facility]) (test code = [facility] 1538) [address] HEMOGLOBIN AND [id number] 17:09:00 Test Item Value Reference Range Interpretation Comments HEMOGLOBIN (BEAKER) (test code = 9.1 GM/DL 13.7-17.5 L 410) HEMATOCRIT (BEAKER) (test code = 27.0 % 40.1-51.0 L 411) POCT-GLUCOSE [id number] 11:29:00 Test Item Value Reference Range Interpretation Comments POC-GLUCOSE METER 243 mg/dL 70-110 H TESTED AT [place] [address] ([facility]) (test code = [facility] 7874) [address] BASIC METABOLIC [id number] 04:05:00 Test Item Value Reference Range Interpretation [...] S NOT APPLICABLE FOR DIALYSIS PATIEN TS. [id number] 03:52:00 Test Item Value Reference Range Interpretation Comments PHOSPHORUS (BEAKER) (test code = 3.5 mg/dL 2.3-4.7 604) [id number] 03:52:00 Test Item Value Reference Range Interpretation Comments MAGNESIUM (BEAKER) (test code = 1.6 mg/dL 1.6-2.6 627) CBC W/PLT COUNT & AUTO [id number] 03:42:00 Test Item Value Reference Range Interpretation [...] PERCENT (BEAKER) (test code = 2801) POCT-GLUCOSE [id number] 23:56:00 Test Item Value Reference Range Interpretation Comments POC-GLUCOSE METER 149 mg/dL 70-[address] [facility] 6720 (BEAKER) (test code = [place] 1538) [address] HEMOGLOBIN AND [id number] 23:48:00 Test Item Value Reference Range Interpretation Comments HEMOGLOBIN (BEAKER) (test code = 8.3 GM/DL 13.7-17.5 L 410) HEMATOCRIT (BEAKER) (test code = 24.7 % 40.1-51.0 L 411) POCT-GLUCOSE [id number] 18:37:00 Test Item Value Reference Range Interpretation Comments POC-GLUCOSE METER 149 mg/dL 70-[address] [facility] 67 ([facility]) (test code = RUYAR Micheline [facility] 1538) [address] HEMOGLOBIN AND [id number] 14:27:00 Test Item Value Reference Range Interpretation Comments HEMOGLOBIN (BEAKER) (test code = 9.0 GM/DL 13.7-17.5 L 410) HEMATOCRIT (BEAKER) (test code = 27.0 % 40.1-51.0 L 411) POCT-GLUCOSE [id number] 12:21:00 Test Item Value Reference Range Interpretation Comments POC-GLUCOSE METER 122 mg/dL 70-110 H TESTED AT [place] [address] ([facility]) (test code = [facility] 1538) [address] BASIC METABOLIC [id number] 04:49:00 Test Item Value Reference Range Interpretation [...] S NOT APPLICABLE FOR DIALYSIS PATIEN TS. [id number] 04:43:00 Test Item Value Reference Range Interpretation Comments MAGNESIUM (BEAKER) (test code = 1.5 mg/dL 1.6-2.6 L 627) [id number] 04:43:00 Test Item Value Reference Range Interpretation Comments PHOSPHORUS (BEAKER) (test code = 3.4 mg/dL 2.3-4.7 604) CBC W/PLT COUNT & AUTO [id number] 04:16:00 Test Item Value Reference Range Interpretation [...] (BEAKER) (test code = 2801) HEMOGLOBIN AND [id number] 23:11:00 Test Item Value Reference Range Interpretation Comments HEMOGLOBIN (BEAKER) (test code = 7.4 GM/DL 13.7-17.5 L 410) HEMATOCRIT (BEAKER) (test code = 22.0 % 40.1-51.0 L 411) POCT-GLUCOSE [id number] 22:00:00 Test Item Value Reference Range Interpretation Comments POC-GLUCOSE METER 163 mg/dL 70-110 H TESTED AT [place] [address] ([facility]) (test code = [facility] 1538) [address] POCT-GLUCOSE [id number] 17:19:00 Test Item Value Reference Range Interpretation Comments POC-GLUCOSE METER 151 mg/dL 70-110 H TESTED AT [place] [address] ([facility]) (test code = [facility] 1538) [address] HEMOGLOBIN AND [id number] 16:24:00 Test Item Value Reference Range Interpretation Comments HEMOGLOBIN (BEAKER) (test code = 8.4 GM/DL 13.7-17.5 L 410) HEMATOCRIT (BEAKER) (test code = 25.2 % 40.1-51.0 L 411) POCT-GLUCOSE [id number] 09:30:00 Test Item Value Reference Range Interpretation Comments POC-GLUCOSE METER 96 mg/dL 70-110 TESTED AT [place] [address] ([facility]) (test code = [facility] [address] 1538) CBC W/PLT COUNT & AUTO [id number] 09:10:00 Test Item Value Reference Range Interpretation Comments WHITE BLOOD CELL COUNT (BEAKER) 7.4 K/ L 3.5-10.5 (test code = 775) RED BLOOD CELL COUNT (AKER) 2.36 M/ L 4.63-6.08 L (test code [...] (BEAKER) (test code = 2801) BASIC METABOLIC [id number] 07:12:00 Test Item Value Reference Range Interpretation [...] S NOT APPLICABLE FOR DIALYSIS PATIEN TS. [id number] 07:10:00 Test Item Value Reference Range Interpretation Comments MAGNESIUM (BEAKER) 1.7 mg/dL 1.6-2.6 Specimen slightly (test code = 627) hemolyzed [id number] 07:10:00 Test Item Value Reference Range Interpretation Comments PHOSPHORUS (BEAKER) 2.0 mg/dL 2.3-4.7 L Specimen slightly (test code = 604) hemolyzed [id number] 06:24:00 Test Item Value Reference Range Interpretation Comments PROTIME (BEAKER) (test code = 15.4 seconds 11.7-14.7 H 759) INR (BEAKER) (test code = 370) 1.2 <=5.9 PARTIAL THROMBOPLASTIN TIME 28.3 seconds 22.5-36.0 (BEAKER) (test code = 760) RECOMMENDED COUMADIN/WARFARIN INR THERAPY RANGESSTANDARD DOSE: 2.0 - 3.0 Includes: PROPHYLAXIS for venous thrombosis, systemic embolization; TREATMENT for venous thrombosis and/or pulmonary embolus.HIGH RISK: Target INR is 2.5-3.5 for patients with mechanical heart valves.PROTHROMBIN [id number] 06:23:00 Test Item Value Reference Range Interpretation Comments PROTIME (BEAKER) (test code = 15.4 seconds 11.7-14.7 H 759) INR (BEAKER) (test code = 370) 1.2 <=5.9 RECOMMENDED COUMADIN/WARFARIN INR THERAPY RANGESSTANDARD DOSE: 2.0 - 3.0 Includes: PROPHYLAXIS for venous thrombosis, systemic embolization; TREATMENT for venous thrombosis and/or pulmonary embolus.HIGH RISK: Target INR is 2.5-3.5 for patients with mechanical heart valves.HEMOGLOBIN AND [id number] 23:40:00 Test Item Value Reference Range Interpretation Comments HEMOGLOBIN (BEAKER) (test code = 7.3 GM/DL 13.7-17.5 L 410) HEMATOCRIT (BEAKER) (test code = 21.7 % 40.1-51.0 L 411) POCT-GLUCOSE [id number] 23:37:00 Test Item Value Reference Range Interpretation Comments POC-GLUCOSE METER 114 mg/dL 70-110 H TESTED AT [place] [address] ([facility]) (test code = [facility] Tobias [facility] 1538) [id number] HEMOGLOBIN AND [id number] 17:46:00 Test Item Value Reference Range Interpretation Comments HEMOGLOBIN (BEAKER) (test code = 7.2 GM/DL 13.7-17.5 L 410) HEMATOCRIT (BEAKER) (test code = 22.0 % 40.1-51.0 L 411) POCT-GLUCOSE [id number] 17:29:00 Test Item Value Reference Range Interpretation Comments POC-GLUCOSE METER 146 mg/dL 70-110 H TESTED AT [place] [address] ([facility]) (test code = [facility]IOLA Tobias [facility] 1538) [address] PROTHROMBIN [id number] 12:38:00 Test Item Value Reference Range Interpretation Comments PROTIME (BEAKER) (test code = 17.0 seconds 11.7-14.7 H 759) INR (BEAKER) (test code = 370) 1.4 <=5.9 RECOMMENDED COUMADIN/WARFARIN INR THERAPY RANGESSTANDARD DOSE: 2.0 - 3.0 Includes: PROPHYLAXIS for venous thrombosis, systemic embolization; TREATMENT for venous thrombosis and/or pulmonary embolus.HIGH RISK: Target INR is 2.5-3.5 for patients with mechanical heart valves.[id number] 12:38:00 Test Item Value Reference Range Interpretation Comments PROTIME (BEAKER) (test code = 17.0 seconds 11.7-14.7 H 759) INR (BEAKER) (test code = 370) 1.4 <=5.9 PARTIAL THROMBOPLASTIN TIME 31.4 seconds 22.5-36.0 (BEAKER) (test code = 760) RECOMMENDED COUMADIN/WARFARIN INR THERAPY RANGESSTANDARD DOSE: 2.0 - 3.0 Includes: PROPHYLAXIS for venous thrombosis, systemic embolization; TREATMENT for venous thrombosis and/or pulmonary embolus.HIGH RISK: Target INR is 2.5-3.5 for patients with mechanical heart valves.HEMOGLOBIN AND [id number] 12:21:00 Test Item Value Reference Range Interpretation Comments HEMOGLOBIN (BEAKER) (test code = 7.1 GM/DL 13.7-17.5 L 410) HEMATOCRIT (BEAKER) (test code = 21.7 % 40.1-51.0 L 411) POCT-GLUCOSE [id number] 12:01:00 Test Item Value Reference Range Interpretation Comments POC-GLUCOSE METER 147 mg/dL 70-[address] [facility] 67[address] (BEAKER) (test code = [place] 1538) [address] [id number] 09:30:00 Test Item Value Reference Range Interpretation Comments PHOSPHORUS (BEAKER) (test code = 2.3 mg/dL 2.3-4.7 604) [id number] 09:30:00 Test Item Value Reference Range Interpretation Comments MAGNESIUM (BEAKER) (test code = 1.8 mg/dL 1.6-2.6 627) BASIC METABOLIC [id number] 09:30:00 Test Item Value Reference Range Interpretation [...] PATIEN TS. CBC W/PLT COUNT & AUTO [id number] 08:40:00 Test Item Value Reference Range Interpretation [...] PERCENT (BEAKER) (test code = 2801) POCT-GLUCOSE [id number] 07:17:00 Test Item Value Reference Range Interpretation Comments POC-GLUCOSE METER 151 mg/dL 70-[address] [facility] [address] ([facility] 1538) [address] POCT-GLUCOSE [id number] 02:45:00 Test Item Value Reference Range Interpretation Comments POC-GLUCOSE METER 164 mg/dL 70-[address] [facility] [address] ([facility]) (test code = [facility] 1538) [address] HEMOGLOBIN AND [id number] 01:50:00 Test Item Value Reference Range Interpretation Comments HEMOGLOBIN (BEAKER) (test code = 6.3 GM/DL 13.7-17.5 L 410) HEMATOCRIT (BEAKER) (test code = 19.7 % 40.1-51.0 L 411) HEMOGLOBIN AND [id number] 20:50:00 Test Item Value Reference Range Interpretation Comments HEMOGLOBIN (BEAKER) (test code = 7.1 GM/DL 13.7-17.5 L 410) HEMATOCRIT (BEAKER) (test code = 22.0 % 40.1-51.0 L 411) [id number] 19:35:00 Test Item Value Reference Range Interpretation Comments PROCALCITONIN (BEAKER) (test code = < ng/mL <0.05 3036) SEPSIS RISK (ng/mL)Low: 0.05-0.50Intermediate: 0.51-2.00High: >=2.01LACTIC ACID, VENOUS, WHOLE [id number] 17:58:00 Test Item Value Reference Range Interpretation Comments LACTATE BLOOD VENOUS (2) (BEAKER) 1.1 mmol/L 0.5-2.2 (test code = 2872) Effective 06/19/2015: Units/Reference Range ChangeNew: 0.5-2.2 mmol/L Previous: 5- 20 mg/dLRAD, CHEST, 1 VIEW, NON [id number] 17:31:00Reason for exam:- >SOBShould this be performed [...] fusion hardware is partially visualized. Signed: Bettye Verma MDReport Verified Date/Time: 04/15/2017 17:31:41 Reading Location: [facility] Radiology Reading Room C METABOLIC [id number] 17:17:00 Test Item Value Reference Range Interpretation [...] S NOT APPLICABLE FOR DIALYSIS PATIEN TS. [id number] 17:04:00 Test Item Value Reference Range Interpretation Comments PHOSPHORUS (BEAKER) (test code = 2.4 mg/dL 2.3-4.7 604) [id number] 17:04:00 Test Item Value Reference Range Interpretation Comments MAGNESIUM (BEAKER) (test code = 1.8 mg/dL 1.6-2.6 627) HEPATIC FUNCTION [id number] 17:04:00 Test Item Value Reference Range Interpretation [...] code = 11 U/L 6-55 347) PROTHROMBIN [id number] 16:47:00 Test Item Value Reference Range Interpretation Comments PROTIME (BEAKER) (test code = 16.8 seconds 11.7-14.7 H 759) INR (BEAKER) (test code = 370) 1.4 <=5.9 RECOMMENDED COUMADIN/WARFARIN INR THERAPY RANGESSTANDARD DOSE: 2.0 - 3.0 Includes: PROPHYLAXIS for venous thrombosis, systemic embolization; TREATMENT for venous thrombosis and/or pulmonary embolus.HIGH RISK: Target INR is 2.5-3.5 for patients with mechanical heart valves.CBC W/PLT COUNT & AUTO [id number] 16:41:00 Test Item Value Reference Range Interpretation [...] (BEAKER) (test code = 2801) HEMOGLOBIN AND [id number] 16:40:00 Test Item Value Reference Range Interpretation Comments HEMOGLOBIN (BEAKER) (test code = 7.4 GM/DL 13.7-17.5 L 410) HEMATOCRIT (BEAKER) (test code = 23.2 % 40.1-51.0 L 411)"
[2021-10-15] MEDS ORDERED: CIPROFLOXACIN 400mg IV 400 MG/200 ML BAG IV ONE (04:22)
[2021-10-15] MEDS ORDERED: NA CHLORIDE 0.9% 500 ML ONE (04:22)
[2021-10-15] MEDS ORDERED: METRONIDAZOLE 500mg IVPB 500 MG/100 ML BAG IV ONE (04:22)
[2021-10-15] MEDS ORDERED: NA CHLORIDE 0.9% 1,000 ML ONE (04:22)
--- NOTE | 2021-10-15 04:45 | ER ---
Nurse's Notes [facility] Name: Mike Pe[facility] Age: 86 yrs Sex: Male : 1935 Arrival Date: 10/15/2021 Time: 03:56 Bed 8 Private MD: Diagnosis: Hypotension, unspecified;GI Bleed/ Gastrointestinal hemorrhage, unspecified-lower;Anemia, unspecified;Unspecified atrial fibrillation-tachycardia;Type 2 diabetes mellitus with hyperglycemia Presentation: 10/15 04:20 Chief complaint: EMS states: called out for rectal bleeding. on seen pt was dizzy and as6 diaphoretic. EMS reports pt BP was 85 systolic. EMS administered 500mL NS. by the time pt arrived to er BP 120 systolic. no complaints of dizziness. Coronavirus screen: At this time, the client does not indicate any symptoms associated with coronavirus-19. Ebola Screen: No symptoms or risks identified at this time. Initial Sepsis Screen: Does the patient meet any 2 criteria? No. Patient's initial sepsis screen is negative. Does the patient have a suspected source of infection? No. Patient's initial sepsis screen is negative. Risk Assessment: Do you want to hurt yourself or someone else? Patient reports no desire to harm self or others. Onset of symptoms was October 11, 2021. 04:20 Method Of Arrival: EMS: [facility] as6 04:20 Acuity: BEKAH 3 as6 04:40 Care prior to arrival: Medication(s) given: Normal saline infusion, 500 mL, IV as6 initiated. 20 GA, in the right antecubital area. Historical: - Allergies: 04:40 No Known Allergies; as6 - Home Meds: 04:40 atorvastatin 40 mg Oral tab 1 tab once daily [Active]; duloxetine 60 mg Oral cpDR 1 cap as6 nightly [Active]; Janumet 50-500 mg Oral tab 1 tab 2 times per day [Active]; midodrine 10 mg Oral tab 1 tab 3 times per day [Active]; omeprazole 40 mg Oral cpDR 1 cap once daily [Active]; levothyroxine 100 mcg tab 1 tab once daily [Active]; magnesium oxide 400 mg Oral tab twice a day [Active]; valacyclovir 500 mg Oral tab 1 tab once daily [Active]; gabapentin 300 mg Oral cap 1 cap 3 times per day [Active]; tamsulosin 0.4 mg Oral cp24 1 cap once daily [Active]; - PMHx: 04:40 Cancer; carcinoma; Diabetes - NIDDM; Diverticulitis; Hypothyroidism; ischemic heart as6 disease; - PSHx: 04:40 Cholecystectomy; bypass; as6 - Immunization history:: Client reports having NOT received the Covid vaccine. - Social history:: Smoking status: Patient/guardian denies using tobacco, but has a distant history of tobacco abuse. - Family history:: not pertinent. Screenin:36 Abuse screen: Denies threats or abuse. Denies injuries from another. Nutritional as6 screening: No deficits noted. Tuberculosis screening: No symptoms or risk factors identified. Fall Risk None identified. Assessment: 04:35 General: Appears in no apparent distress. Behavior is calm, cooperative. Pain: Denies as6 pain. Neuro: Level of Consciousness is awake, alert. Respiratory: Respiratory effort is even, unlabored. GI: Reports rectal bleeding, bloody stool. Vital Signs: 04:20 BP 122 / 81; Pulse 119; Resp 17 S; Temp 97.9(O); Pulse Ox 100% on R/A; Weight 83.91 kg as6 (R); Height 6 ft. 1 in. (185.42 cm) (R); Pain 0/10; 04:20 Body Mass Index 24.41 (83.91 kg, 185.42 cm) as6 ED Course: 03:56 Patient arrived in ED. as6 03:56 Rowdy Reilly RN is Primary Nurse. as6 03:57 Gary Ruano MD is Attending Physician. wolfgang 04:15 XRAY Chest (1 view) In Process Unspecified. EDMS 04:20 Maintain EMS IV. Dressing intact. Good blood return noted. Site clean \T\ dry. Gauge \T\ as 6 site: 20g RAC. 04:34 Type And Screen Sent. as6 04:34 Lipase Sent. as6 04:35 Basic Metabolic Panel Sent. as6 04:35 CBC with Diff Sent. as6 04:35 LFT's Sent. as6 04:35 Magnesium Sent. as6 04:35 NT PRO-BNP Sent. as6 04:35 PT-INR Sent. as6 04:35 Troponin HS Sent. as6 04:36 Bed in low position. Call light in reach. Side rails up X2. Client placed on continuous as6 cardiac and pulse oximetry monitoring. NIBP monitoring applied. Warm blanket given. 04:40 Triage completed. as6 04:41 Rowdy Traore MD is Hospitalizing Provider. [facility] 04:41 Arm band placed on. as6 05:58 CT Abd/Pelvis - IV Contrast Only In Process Unspecified. EDMS 08:24 No provider procedures requiring assistance completed. Patient admitted, IV remains in tw2 place. 09:32 Inserted saline lock: 20 gauge in left antecubital area, using aseptic technique. [email or web address] Administered Medications: 04:34 Drug: Flagyl (metroNIDAZOLE) 500 mg Volume: 100 ml; Route: IVPB; Rate: 200 ml/hr; as6 Infused Over: 30 mins; Site: right antecubital; 20:50 Follow up: Response: No adverse reaction; IV Status: Completed infusion; IV Intake: as6 100ml 04:34 Drug: NS 0.9% 1000 ml Route: IV; Rate: 125 ml/hr; Site: right antecubital; as6 20:51 Follow up: Response: No adverse reaction; IV Status: Completed infusion; IV Intake: as6 1000ml 04:34 Drug: NS 0.9% 500 ml Route: IV; Rate: bolus; Site: right antecubital; as6 20:50 Follow up: Response: No adverse reaction; IV Status: Completed infusion; IV Intake: as6 500ml 05:02 Drug: ProTONIX (pantoprazole) 40 mg Route: IVP; Site: right antecubital; as6 20:50 Follow up: Response: No adverse reaction as6 05:03 Drug: Cipro (ciprofloxacin) 400 mg Volume: 200 ml; Route: IVPB; Infused Over: 60 mins; as6 Site: right antecubital; 20:50 Follow up: Response: No adverse reaction; IV Status: Completed infusion; IV Intake: as6 200ml 07:17 Not Given (Physician Discretion): Magnesium Sulfate 1 grams IVPB once over 1 hrs as6 07:17 Not Given (Physician Discretion): Digoxin 0.5 mg IVP once as6 Medication: 04:37 VIS not applicable for this client. as6 Intake: 20:50 IV: 200ml; Total: 200ml. as6 20:50 IV: 100ml; Total: 300ml. as6 20:50 IV: 500ml; Total: 800ml. as6 20:51 IV: 1000ml; Total: 1800ml. as6 Outcome: 04:44 Decision to Hospitalize by Provider. wolfgang 08:24 Admitted to ER Hold. Please see [facility] for further documentation. tw 08:24 Condition: stable 08:24 Instructed on the need for admit. 20:49 Patient left the ED. as6 Signatures: Dispatcher [employer] EDGary Burciaga MD MD cha Wise, Tara, RN RN tw2 Rowdy Reilly, RN RN as6 Ericka Pablo RN RN [email or web address]
--- NOTE | 2021-10-15 04:45 | EDPHYS ---
Physician Documentation [facility] Name: Mike Peña Age: 86 yrs Sex: Male : 1935 Arrival Date: 10/15/2021 Time: 03:56 Bed 8 Private MD: KIARRA Physician Gary Ruano HPI: 10/15 04:32 This 86 yrs old Male presents to ER via Unassigned with complaints of lower GI bleed. wolfgang 04:32 The patient presents to the emergency department with rectal bleeding, a moderate wolfgang amount. Onset: The symptoms/episode began/occurred 1 day(s) ago. Abdominal pain: none is appreciated. Modifying factors: The symptoms are alleviated by nothing, the symptoms are aggravated by nothing. Associated signs and symptoms: Pertinent positives: near-syncope. Severity of symptoms: At their worst the symptoms were mild in the emergency department the symptoms are unchanged. The patient has not experienced similar symptoms in the past. Historical: - Allergies: 04:40 No Known Allergies; as6 - Home Meds: 04:40 atorvastatin 40 mg Oral tab 1 tab once daily [Active]; duloxetine 60 mg Oral cpDR 1 cap as6 nightly [Active]; Janumet 50-500 mg Oral tab 1 tab 2 times per day [Active]; midodrine 10 mg Oral tab 1 tab 3 times per day [Active]; omeprazole 40 mg Oral cpDR 1 cap once daily [Active]; levothyroxine 100 mcg tab 1 tab once daily [Active]; magnesium oxide 400 mg Oral tab twice a day [Active]; valacyclovir 500 mg Oral tab 1 tab once daily [Active]; gabapentin 300 mg Oral cap 1 cap 3 times per day [Active]; tamsulosin 0.4 mg Oral cp24 1 cap once daily [Active]; - PMHx: 04:40 Cancer; carcinoma; Diabetes - NIDDM; Diverticulitis; Hypothyroidism; ischemic heart as6 disease; - PSHx: 04:40 Cholecystectomy; bypass; as6 - Immunization history:: Client reports having NOT received the Covid vaccine. - Social history:: Smoking status: Patient/guardian denies using tobacco, but has a distant history of tobacco abuse. - Family history:: not pertinent. ROS: 04:33 Constitutional: Negative for fever, chills, and weight loss, Eyes: Negative for injury, wolfgang pain, redness, and discharge, ENT: Negative for injury, pain, and discharge, Neck: Negative for injury, pain, and swelling, Cardiovascular: Negative for chest pain, palpitations, and edema, Respiratory: Negative for shortness of breath, cough, wheezing, and pleuritic chest pain, Back: Negative for injury and pain, : Negative for injury, bleeding, discharge, and swelling, MS/Extremity: Negative for injury and deformity, Psych: Negative for depression, anxiety, suicide ideation, homicidal ideation, and hallucinations, Allergy/Immunology: Negative for hives, rash, and allergies, Endocrine: Negative for neck swelling, polydipsia, polyuria, polyphagia, and marked weight changes, Hematologic/Lymphatic: Negative for swollen nodes, abnormal bleeding, and unusual bruising. 04:33 Abdomen/GI: Positive for abdominal cramps. 04:33 Skin: Positive for pallor. Exam: 04:33 Constitutional: This is a well developed, well nourished patient who is awake, alert, wolfgang and in no acute distress. Head/Face: Normocephalic, atraumatic. Eyes: Pupils equal round and reactive to light, extra-ocular motions intact. Lids and lashes normal. Conjunctiva and sclera are non-icteric and not injected. Cornea within normal limits. Periorbital areas with no swelling, redness, or edema. ENT: Nares patent. No nasal discharge, no septal abnormalities noted. Tympanic membranes are normal and external auditory canals are clear. Oropharynx with no redness, swelling, or masses, exudates, or evidence of obstruction, uvula midline. Mucous membranes moist. Neck: Trachea midline, no thyromegaly or masses palpated, and no cervical lymphadenopathy. Supple, full range of motion without nuchal rigidity, or vertebral point tenderness. No Meningismus. Chest/axilla: Normal chest wall appearance and motion. Nontender with no deformity. No lesions are appreciated. Cardiovascular: Regular rate and rhythm with a normal S1 and S2. No gallops, murmurs, or rubs. Normal PMI, no JVD. No pulse deficits. Respiratory: Lungs have equal breath sounds bilaterally, clear to auscultation and percussion. No rales, rhonchi or wheezes noted. No increased work of breathing, no retractions or nasal flaring. Back: No spinal tenderness. No costovertebral tenderness. Full range of motion. Male : Normal genitalia with no discharge or lesions. MS/ Extremity: Pulses equal, no cyanosis. Neurovascular intact. Full, normal range of motion. Neuro: Awake and alert, GCS 15, oriented to person, place, time, and situation. Cranial nerves II-XII grossly intact. Motor strength 5/5 in all extremities. Sensory grossly intact. Cerebellar exam normal. Normal gait. Psych: Awake, alert, with orientation to person, place and time. Behavior, mood, and affect are within normal limits. 04:33 ECG was reviewed by the Attending Physician. 04:33 Abdomen/GI: Rectal exam: Stool: guaiac positive, hemorrhoid(s), are not appreciated, mass, is not appreciated, swelling, is not appreciated, tenderness, is not appreciated, Liver: no appreciated palpable abnormalities, Hernia: not appreciated. 04:44 Skin: Appearance: Color: pale, Temperature: normal temperature, Moisture: normal wolfgang moisture, petechiae, not noted, ecchymosis, not noted, flushing, not noted, diaphoresis is not appreciated, swelling, is not appreciated. Vital Signs: 04:20 BP 122 / 81; Pulse 119; Resp 17 S; Temp 97.9(O); Pulse Ox 100% on R/A; Weight 83.91 kg as6 (R); Height 6 ft. 1 in. (185.42 cm) (R); Pain 0/10; 04:20 Body Mass Index 24.41 (83.91 kg, 185.42 cm) as6 MDM: 03:57 Patient medically screened. wolfgang 04:39 Differential diagnosis: gastritis, diverticulitis, hemorrhoids, hemorrhagic shock. Data [facility] reviewed: vital signs, nurses notes, lab test result(s), EKG, radiologic studies, CT scan, plain films. Data interpreted: secured entrance monitor: rate is 109 beats/min, rhythm is atrial fibrillation, Pulse oximetry: on room air is 99 %. Test interpretation: by ED physician or midlevel provider: ECG, plain radiologic studies. Counseling: I had a detailed discussion with the patient and/or guardian regarding: the historical points, exam findings, and any diagnostic results supporting the discharge/admit diagnosis, lab results, radiology results, the need for further work-up and treatment in the hospital. 10/15 04:00 Order name: Basic Metabolic Panel; Complete Time: 05:54 [facility] 10/15 04:00 Order name: CBC with Diff; Complete Time: 05:54 [facility] 10/15 04:00 Order name: LFT's; Complete Time: 05:54 [facility] 10/15 04:00 Order name: Magnesium; Complete Time: 05:54 [facility] 10/15 04:00 Order name: NT PRO-BNP; Complete Time: 05:54 [facility] 10/15 04:00 Order name: PT-INR; Complete Time: 05:54 [facility] 10/15 04:00 Order name: Troponin HS; Complete Time: 05:54 [facility] 10/15 04:00 Order name: Lipase; Complete Time: 05:54 [facility] 10/15 04:00 Order name: SARS RAPID; Complete Time: 05:54 [facility] 10/15 04:00 Order name: Type And Screen; Complete Time: 07:08 [facility] 10/15 04:45 Order name: Thyroid Stimulating Hormone; Complete Time: 05:54 [facility] 10/15 05:11 Order name: Packed RBC Leukored [facility] 10/15 08:22 Order name: Basic Metabolic Panel [facility] 10/15 04:00 Order name: XRAY Chest (1 view) [facility] 10/15 04:00 Order name: EKG; Complete Time: 04:01 [facility] 10/15 04:00 Order name: CT Abd/Pelvis - IV Contrast Only [facility] 10/15 08:22 Order name: Basic Metabolic Panel [facility] 10/15 08:22 Order name: CBC with Automated Diff [facility] 10/15 08:22 Order name: CBC with Automated Diff [facility] 10/15 08:22 Order name: Urinalysis [facility] 10/15 09:05 Order name: Glucose, Ancillary Testing [facility] 10/15 15:30 Order name: CBC without Diff [facility] 10/15 04:00 Order name: Cardiac monitoring; Complete Time: 04:34 [facility] 10/15 04:00 Order name: EKG - Nurse/Tech; Complete Time: 04:34 [facility] 10/15 04:00 Order name: IV Saline Lock; Complete Time: 04:34 [facility] 10/15 04:00 Order name: Labs collected and sent; Complete Time: 04:35 [facility] 10/15 04:00 Order name: O2 Per Protocol; Complete Time: 04:35 [facility] 10/15 04:00 Order name: O2 Sat Monitoring; Complete Time: 04:35 [facility] 10/15 04:41 Order name: EKG; Complete Time: 04:41 [facility] 10/15 04:41 Order name: EKG - Nurse/Tech; Complete Time: 04:41 [facility] 10/15 04:41 Order name: IV Saline Lock - Large Bore; Complete Time: 04:41 [facility] 10/15 08:22 Order name: NPO EDMS EC:33 Rate is 109 beats/min. Rhythm is irregular. QRS [place] is Normal. SD interval is wolfgang prolonged. QRS interval is normal. QT interval is normal. No Q waves. T waves are Normal. No ST changes noted. Clinical impression: Atrial Fibrillation. Interpreted by me. Reviewed by me. Administered Medications: 04:34 Drug: Flagyl (metroNIDAZOLE) 500 mg Volume: 100 ml; Route: IVPB; Rate: 200 ml/hr; as6 Infused Over: 30 mins; Site: right antecubital; 20:50 Follow up: Response: No adverse reaction; IV Status: Completed infusion; IV Intake: as6 100ml 04:34 Drug: NS 0.9% 1000 ml Route: IV; Rate: 125 ml/hr; Site: right antecubital; as6 20:51 Follow up: Response: No adverse reaction; IV Status: Completed infusion; IV Intake: as6 1000ml 04:34 Drug: NS 0.9% 500 ml Route: IV; Rate: bolus; Site: right antecubital; as6 20:50 Follow up: Response: No adverse reaction; IV Status: Completed infusion; IV Intake: as6 500ml 05:02 Drug: ProTONIX (pantoprazole) 40 mg Route: IVP; Site: right antecubital; as6 20:50 Follow up: Response: No adverse reaction as6 05:03 Drug: Cipro (ciprofloxacin) 400 mg Volume: 200 ml; Route: IVPB; Infused Over: 60 mins; as6 Site: right antecubital; 20:50 Follow up: Response: No adverse reaction; IV Status: Completed infusion; IV Intake: as6 200ml 07:17 Not Given (Physician Discretion): Magnesium Sulfate 1 grams IVPB once over 1 hrs as6 07:17 Not Given (Physician Discretion): Digoxin 0.5 mg IVP once as6 Disposition Summary: 10/15/21 04:44 Hospitalization Ordered Hospitalization Status: Inpatient Admission wolfgang Provider: León, Rowdy wolfgang Condition: Fair wolfgang Problem: new wolfgang Symptoms: have improved wolfgang Bed/Room Type: Standard wolfgang Location: Telemetry/MedSurg (Inpatient)(10/15/21 18:26) bd Room Assignment: 408(10/15/21 18:26) bd Diagnosis - Hypotension, unspecified wolfgang - GI Bleed/ Gastrointestinal hemorrhage, unspecified - lower wolfgang - Anemia, unspecified wolfgang - Type 2 diabetes mellitus with hyperglycemia wolfgang - Unspecified atrial fibrillation - tachycardia(10/15/21 04:54) wolfgang Forms: - Medication Reconciliation Form wolfgang - SBAR form wolfgang Signatures: Dispatcher [employer] EDMS Brenda Ortega bd Alma Rosa Guzman RN RN mw Anderson, Corey, MD MD cha Slawson, Ashby, RN RN as6 Jayleen Mensah PA PA sb3 Corrections: (The following items were deleted from the chart) 04:43 04:41 THYROID STIMULAT HORMONE+C.LAB.BRZ ordered. EDMS EDMS 04:45 04:44 Telemetry/MedSurg (Inpatient) wolfgang mw 04:45 04:44 wolfgang mw 04:54 04:44 Unspecified atrial fibrillation wolfgang wolfgang 18:26 04:45 [facility] ER HOLD mw bd 18:26 04:45 ERHOLD- mw bd
[2021-10-15] MEDS ORDERED: PANTOPRAZOLE 40 MG INJ ONE ×3 (04:53→16:39)
[2021-10-15] MEDS ORDERED: MAGNESIUM SULFATE 1 gm IVPB 0 GM/0 ML BAG IV ONE ×2 (04:53→08:41)
[2021-10-15] MEDS ORDERED: DIGOXIN 0.25 MG/ML AMP ONE ×2 (04:53→08:41)
[2021-10-15 05:00] LABS: Absolute Lymphocytes (CBC) 1.1 K/uL (0.7-4.9); Hematocrit 34.3 % (39.6-49.0); MCV 97.7 fL (80-100); MPV 7.9 fL (7.6-11.3); Protime INR 1.1; RBC Red Blood Cell Count 3.51 M/uL (4.33-5.43)
[2021-10-15 05:22] LABS: Bilirubin Direct 0.2 mg/dL (0-0.2); Bilirubin Total 0.6 mg/dL (0.2-1.0); Potassium 4.3 mmol/L (3.5-5.1); Protein, Total 6.1 g/dL (6.4-8.2); Thyroid Stimulating Hormone 0.425 uIU/mL (0.360-3.740); Troponin High Sensitivity 10.8 pg/mL (<58.9)
[2021-10-15 05:28] LABS: SARS-CoV-2 Antigen Rapid Res Negative (Negative)
[2021-10-15] MEDS ORDERED: SODIUM CHLORIDE 0.9% 10ML INJ IV PRN ×2 (08:16→08:31)
[2021-10-15] MEDS ORDERED: MORPHINE 2 MG/ML SYR IV PRN (08:17)
[2021-10-15] MEDS ORDERED: ACETAMINOPHEN 500 MG TAB PO PRN (08:19)
[2021-10-15] MEDS ORDERED: ONDANSETRON 4 MG/2 ML VIAL IV PRN (08:19)
--- NOTE | 2021-10-15 08:22 | P.HP ---
Certification for Inpatient Patient admitted to: Inpatient With expected LOS: >2 Midnights Patient will require the following post-hospital care: None Practitioner: I am a practitioner with admitting privileges, knowledge of patient current condition, hospital course, and medical plan of care. Services: Services provided to patient in accordance with Admission requirements found in Title 42 Section 412.3 of the Code of Federal Regulations Patient History Date of Service: 10/15/21 Reason for admission: GI bleed. History of Present Illness: Patient is an 86-year-old male with a past medical history significant for hypothyroidism, DM2, hyperlipidemia, CABG who presents with complaint of melena onset 2 days ago. Patient reported that he noticed that when he woke up today his bed was wet with blood and when he went to use the bathroom patient continued having rectal bleeding. Patient reported associated signs and symptoms of fatigue and dizziness. Patient denies any other signs and symptoms. Symptoms are aggravated or relieved by nothing. Patient decided to present to the hospital due to worsening symptoms. Allergies No Known Drug Allergies Allergy (Verified 06/26/14 13:40) Unknown No Known Allergies Allergy (Uncoded 06/18/17 11:31) Unknown Home Medications: Atorvastatin Calcium [Lipitor*] 40 mg PO DAILY 11/19/12 Duloxetine HCl [Cymbalta] 60 mg PO DAILY 11/19/12 Levothyroxine [Synthroid*] 100 mcg PO [id number] 11/19/12 Pregabalin [Lyrica*] 75 mg PO QID 11/19/12 Sitagliptin Phos/Metformin HCl [Janumet 50-1,000 mg Tablet] 1 each PO BID 11/19/12 Tamsulosin [Flomax*] 0.4 mg PO DAILY 11/19/12 Valacyclovir [Valtrex*] 500 mg PO BID 11/19/12 Omeprazole [Prilosec] 40 mg PO DAILY 02/26/14 Magnesium Oxide [Mag 0X*] 400 mg PO BID #60 tab 03/03/14 Aspirin Chewable [Aspirin Chewable*] 81 mg PO DAILY 04/14/17 Fluticasone Furoate [Veramyst] 1 spr IN DAILY 04/14/17 Midodrine HCl 10 mg PO TID 04/14/17 - Past Medical/Surgical History Diabetic: Yes -: NIDDM -: Diverticulitus -: Hyperlipidemia -: Neuropathy -: Shingles -: Ischemic Heart Disease -: eliza rashier stage four -: triple bypass -: choley -: c6-c7 neck surgery -: r inguinal hernia -: l sided hernia -: nodule removal from left side of neck - Family History Family History: Reviewed- Non-Contributory - Social History Smoking Status: Former smoker Alcohol use: No CD- Drugs: No Caffeine use: No Place of Residence: Home Review of Systems General: Other (Fatigue ) Eyes: Unremarkable ENT: Unremarkable Respiratory: Unremarkable Cardiovascular: Unremarkable Gastrointestinal: Melena Genitourinary: Unremarkable Musculoskeletal: Unremarkable Integumentary: Unremarkable Neurological: Other (dizziness ) Lymphatics: Unremarkable Physical Examination - Physical Exam General: Oriented x3, Cooperative HEENT: Atraumatic, Normocephalic Neck: Supple, 2+ carotid pulse no bruit, JVD not distended Respiratory: Clear to auscultation bilaterally, Normal air movement Cardiovascular: Normal pulses, Normal S1 S2 Capillary refill: <2 Seconds Gastrointestinal: Normal bowel sounds, Soft and benign Musculoskeletal: No clubbing, No swelling, No contractures Integumentary: No rashes, No breakdown, No significant lesion Neurological: Normal gait, Normal speech, Normal tone, Sensation intact Lymphatics: No axilla or inguinal lymphadenopathy - Studies Laboratory Data (last 24 hrs) 10/15/21 04:26: PT 12.1, INR 1.10 10/15/21 04:26: WBC 8.30, Hgb 11.9 L, Hct 34.3 L, Plt Count 214 10/15/21 04:26: Sodium 139, Potassium 4.3, BUN 20 H, Creatinine 1.01, Glucose 196 H, Magnesium 2.0, Total Bilirubin 0.6, AST 13 L, ALT 20, Alkaline Phosphatase 68, Lipase 113 Assessment and Plan - Plan --Gastrointestinal bleeding. Gastroenterology consulted. Patient placed on Protonix. H&H stable. We will continue to monitor hemoglobin and transfuse if less than 7.0. We will await further recommendation from sand blaster. --DM2 with neuropathy. BS monitoring sliding scale insulin. Continue Lyrica for his neuropathy --Hypothyroidism. Continue Synthroid --Hyperlipidemia. Continue statin. --BPH. Continue Flomax. --GERD. Continue protonix --History of shingles. Continue home medication. --History of CABG. Continue statin and aspirin when appropriate. -- Elevated BNP. BNP 1010. Dose of Lasix ordered. Echocardiogram pending to assess LV\valvular function and wall motion. Continue supportive care. --DVT prophylaxis with SCDs.. Discharge Plan: Home Plan to discharge in: Greater than 2 days - Advance Directives Does patient have a Living Will: No Does patient have a Durable POA for Healthcare: No - Code Status/Comfort Care Code Status Assessed: Yes Code Status: Full Code Physician Review: Patient Assessed, Agree with Above Assessment and Plan Critical Care: No
[2021-10-15 08:41] VITALS: BMI 24.4
[2021-10-15] MEDS: NA CHLORIDE 0.9% 1,000 ML IV SCH ×2 (08:58→22:23)
[2021-10-15] MEDS ORDERED: PANTOPRAZOLE 40 MG INJ IVP SCH (09:00)
[2021-10-15] MEDS ORDERED: D5 0.9 NS 1,000 ML IV SCH (09:00)
[2021-10-15 15:20] LABS: Hematocrit 32.9 % (39.6-49.0); MCV 98.6 fL (80-100); MPV 7.7 fL (7.6-11.3); RBC Red Blood Cell Count 3.33 M/uL (4.33-5.43)
--- NOTE | 2021-10-15 15:43 | RAD REPORT ---
EXAM DESCRIPTION: CT Abdomen and Pelvis With Intravenous Contrast CLINICAL HISTORY: The patient is 86 years old and is Male; LLQ abdominal pain TECHNIQUE: Axial computed tomography images of the abdomen and pelvis with intravenous contrast. S agittal and coronal reformatted images were created and reviewed. This CT exam was performed using one or more of the following dose reduction techniques: automated exposure control, adjustment of t he mA and/or kV according to patient size, and/or use of iterative reconstruction technique. COMPARISON: 04/07/2020 CT abdomen and pelvis with contrast FINDINGS: LUNG BASES: No consolidation. Left greater than right basilar scarring, not definitely changed compared to reference exam. Small hi atal hernia. ABDOMEN: LIVER: Unremarkable. No mass. GALLBLADDER AND BILE DUCTS: Cholecystectomy. No abnormal ductal dilation. PANCREAS: Unremarkable. No mass. No ductal dilation. SPLEEN: Unremarkable. No splenomegaly. ADRENALS: Unremarkable. No mass. KIDNEYS AND URETERS: Multiple simple left renal cysts. No hydronephrosis. STOMACH AND BOWEL: Moderate descending and sigmoid colonic diverticulosis. No obstruction. No mucosal thickening. PELVIS: APPENDIX: No findings to suggest acute appendicitis. BLADDER: Unremarkable. No mass. REPRODUCTIVE: Moderate prostatomegaly. ABDOMEN and PELVIS: INTRAPERITONEAL SPACE: Unremarkable. No free air. No significant fluid collection. BONES/JOINTS: No acute fracture. Multilevel spondylosis. SOFT TISSUES: Fat-containing right inguinal hernia with hernia repair changes noted in the left kvng in. Moderate to large sized right-sided hydrocele. VASCULATURE: Moderate calcified atherosclerosis of the abdominal aorta with ectasia at the approxim ate L3-4 intervertebral level measuring up to 2.5 cm in AP diameter. No evidence of dissection. LYMPH NODES: Unremarkable. No enlarged lymph nodes. IMPRESSION: No acute findings in the abdomen or pelvis. Electronically signed by: Addi Low MD 10/15/2021 6:21 AM CDT Due to temporary technical issues with the PACS/Fluency reporting system, reports are being signed by the in house radiologists without review as a courtesy to insure prompt reporting. The interpreting radiologist is fully responsible for the content of the report.
[2021-10-15] MEDS ORDERED: NA CHLORIDE 0.9% 100 ML ONE (16:39)
[2021-10-15] MEDS ORDERED: PIPERACIL/TAZO 3.375 GM VIAL IV ONE (16:39)
[2021-10-15] MEDS: PANTOPRAZOLE 40 MG INJ IVP SCH (16:40)
[2021-10-15] MEDS: PIPER TAZO 3.375 GM in NA CHLORIDE 0.9% 100 ML IV SCH (16:47)
[2021-10-15] MEDS ORDERED: D50W 25 GM/50 ML SYRINGE IV PRN (17:14)
[2021-10-15] MEDS ORDERED: GLUCAGON 1 MG/VIAL IM PRN (17:14)
[2021-10-15] MEDS ORDERED: DEXTROSE 10%-WATER 125 ML IV PRN (17:35)
[2021-10-15] MEDS ORDERED: FUROSEMIDE 20 MG/ 2ML VIAL IV ONE (17:40)
--- NOTE | 2021-10-15 18:26 | RAD REPORT ---
EXAM DESCRIPTION: XR Chest, 1 View CLINICAL HISTORY: The patient is 86 years old and is Male; COUGH TECHNIQUE: Frontal view of the chest. COMPARISON: No images available for comparison FINDINGS: LUNGS: Unremarkable. No consolidation. PLEURAL SPACE: Unremarkable. No pleural effusion. No pneumothorax. HEART: Unremarkable. No cardiomegaly. MEDIASTINUM: Unremarkable. BONES/JOINTS: Median sternotomy changes. No acute osseous abnormality. OTHER FINDINGS: ACDF hardware noted in the inferior cervical spine. IMPRESSION: No acute findings in the chest. Electronically signed by: Addi Low MD 10/15/2021 4:27 AM CDT Due to temporary technical issues with the PACS/Fluency reporting system, reports are being signed by the in house radiologists without review as a courtesy to insure prompt reporting. The interpreting radiologist is fully responsible for the content of the report.
[2021-10-15] MEDS: PREGABALIN 75 MG CAP PO SCH ×2 (18:55→22:24)
[2021-10-15] MEDS ORDERED: FUROSEMIDE 20 MG/ 2ML VIAL ONE (18:58)
[2021-10-15] MEDS ORDERED: PREGABALIN 75 MG CAP PO ONE (19:08)
[2021-10-15] MEDS: MAGNESIUM OXIDE 400 MG TAB PO SCH (21:00)
[2021-10-15] MEDS ORDERED: ATORVASTATIN 40 MG TAB PO SCH (21:00)
[2021-10-15] MEDS: INSULIN -REGULAR HUMAN 50 UNIT/0.5 ML ML SQ SCH (21:00)
[2021-10-15 22:18] VITALS: O2SAT 98
[2021-10-15] MEDS: VALACYCLOVIR 500 MG TAB PO SCH (22:23)
[2021-10-16] MEDS: PIPER TAZO 3.375 GM in NA CHLORIDE 0.9% 100 ML IV SCH ×2 (01:12→08:54)
[2021-10-16 02:13] VITALS: TEMP 97.2
[2021-10-16 05:03] VITALS: BP 116/67
[2021-10-16] MEDS: PANTOPRAZOLE 40 MG INJ IVP SCH (05:45)
[2021-10-16] MEDS ORDERED: LEVOTHYROXINE SOD 0.1 MG TAB PO SCH (06:00)
[2021-10-16 06:12] LABS: Absolute Lymphocytes (CBC) 1.5 K/uL (0.7-4.9); Hematocrit 34.2 % (39.6-49.0); Lymphocytes % 21.7 % (15.3-44.8); MCV 98.5 fL (80-100); MPV 7.4 fL (7.6-11.3); RBC Red Blood Cell Count 3.47 M/uL (4.33-5.43)
[2021-10-16] MEDS ORDERED: METOPROLOL TAR 25 MG TAB PO SCH (07:00)
[2021-10-16] MEDS: INSULIN -REGULAR HUMAN 50 UNIT/0.5 ML ML SQ SCH (07:30)
[2021-10-16] MEDS: MAGNESIUM OXIDE 400 MG TAB PO SCH (08:53)
[2021-10-16] MEDS: PREGABALIN 75 MG CAP PO SCH (08:54)
[2021-10-16] MEDS: VALACYCLOVIR 500 MG TAB PO SCH (08:54)
[2021-10-16] MEDS ORDERED: PIPERACIL/TAZO 3.375 GM VIAL IV ONE (08:57)
[2021-10-16] MEDS ORDERED: NA CHLORIDE 0.9% 100 ML ONE (08:58)
[2021-10-16] MEDS ORDERED: FLUTICASONE FUROATE NAS SCH (09:00)
[2021-10-16] MEDS ORDERED: DULOXETINE 30 MG CAP PO SCH (09:00)
[2021-10-16] MEDS ORDERED: TAMSULOSIN 0.4 MG SR CAP PO SCH (09:00)
[2021-10-16] MEDS ORDERED: HOME MED 1 EA UNK (Omeprazole [Prilosec] 40 MG Capsule.Dr) PO SCH (09:00)
--- NOTE | 2021-10-16 13:59 | EKG ---
Test Date: 2021-10-15 Test Time: 04:52:24 Construction Engineering Manager: ANTONIO MEASUREMENT RESULTS: Intervals: Rate: 110 SC: 168 QRSD: 132 QT: 360 QTc: 487 [place]: P: 91 SC: 168 QRS: -62 T: 18 INTERPRETIVE STATEMENTS: Sinus tachycardia Right bundle branch block Left anterior fascicular block Bifascicular block Abnormal ECG Compared to ECG 10/15/2021 04:22:39 Left anterior fascicular block now present Bifascicular block now present Atrial fibrillation no longer present Ventricular premature complex(es) no longer present Electronically Signed On 10-16-21 13:58:23 CDT by Jordan Brandon
--- NOTE | 2021-10-16 13:59 | EKG ---
Test Date: 2021-10-15 Test Time: 04:22:39 Telephone Service Representative: MEASUREMENT RESULTS: Intervals: Rate: 109 [place]: QRSD: 134 QT: 340 QTc: 457 [place]: P: [place]: QRS: -26 T: 33 INTERPRETIVE STATEMENTS: Atrial fibrillation with rapid ventricular response with premature ventricular or aberrantly conducted complexes Right bundle branch block Abnormal ECG Compared to ECG 04/12/2020 17:43:33 Ventricular premature complex(es) now present Sinus rhythm no longer present Sinus arrhythmia no longer present Electronically Signed On 10-16-21 13:58:34 CDT by Jordan Brandon
--- NOTE | 2021-10-16 20:19 | P.DS ---
Admission Date: 10/15/21 Discharge Date: 10/16/21 Disposition: ROUTINE DISCHARGE Discharge Condition: GOOD Reason for Admission: GI bleed. Consultations: GI - Dr. Neumann Brief History of Present Illness: 86-year-old male with a past medical history significant for hypothyroidism, DM2, hyperlipidemia, CABG who presents with complaint of melena onset 2 days ago. Patient reported that he noticed that when he woke up today his bed was wet with blood and when he went to use the bathroom patient continued having rectal bleeding. Patient reported associated signs and symptoms of fatigue and dizziness. Patient denies any other signs and symptoms. Symptoms are aggravated or relieved by nothing. Patient decided to present to the hospital due to worsening symptoms. Hospital Course: Problem List GI bleed DM2 with neuropathy Hypothyroidism HLD BPH GERD h/o shingles CAD s/p CABG Paroxysmal Afib, new diagnosis Patient presented with dark red / maroon stool. CT abdomen/pelvis was negative for acute process. He did not have any further bowel movements. Hemoglobin remained stable in the 11s. He was monitored with serial H/H, empirically treated with antibiotics given history of diverticulitis and prior bleeds. GI - Dr. Neumann was consulted. Patient was deemed stable for discharge home with Augmentin. Continue Pantoprazole twice daily for 1 month, then can resume his omeprazole. Continue with soft, low fiber diet. Patient was also noted to have paroxysmal atrial fibrillation with heart rate to 100-110 briefly. On further discussion he reported feeling his heart racing at random times at home for quite some time. Suspect he has been having paroxysmal atrial fibrillation. Patient was started on metoprolol 12.5mg twice daily. Counselled on side effects. Briefly discussed with Dr. Romo over the phone, and recommended patient follow up in his office soon. Follow up: PCP within [address] Romo, Cardiology, within 2-[address] Lyons in ~2-3 weeks. Vital Signs/Physical Exam: Temp Pulse Resp BP Pulse Ox 97.2 F 80 16 116/67 98 10/16/21 04:00 10/16/21 04:00 10/16/21 04:00 10/16/21 04:00 10/16/21 04:00 General: Alert, In no apparent distress, Oriented x3 HEENT: EOMI, Sclerae nonicteric Neck: Supple, No LAD Respiratory: Clear to auscultation bilaterally, Normal air movement Cardiovascular: No edema, Irregular heart rate/rhythm Gastrointestinal: Soft and benign, Non-distended, No tenderness Musculoskeletal: No erythema, No tenderness Integumentary: No rashes, No significant lesion Neurological: Normal speech, Normal strength at 5/5 x4 extr, Normal affect Laboratory Data at Discharge: WBC 7.00 K/uL (4.3-10.9) D 10/16/21 05:40 Hgb 11.9 g/dL (13.6-17.9) L 10/16/21 05:40 Hct 34.2 % (39.6-49.0) L 10/16/21 05:40 Plt Count 205 K/uL (152-406) 10/16/21 05:40 PT 12.1 SECONDS (9.5-12.5) 10/15/21 04:26 INR 1.10 10/15/21 04:26 Sodium 140 mmol/L (136-145) 10/16/21 05:52 Potassium 4.0 mmol/L (3.5-5.1) 10/16/21 05:52 BUN 14 mg/dL (7-18) 10/16/21 05:52 Creatinine 1.08 mg/dL (0.55-1.3) 10/16/21 05:52 Glucose 141 mg/dL (74-106) H 10/16/21 05:52 Magnesium 2.0 mg/dL (1.8-2.4) 10/15/21 04:26 Total Bilirubin 0.6 mg/dL (0.2-1.0) 10/15/21 04:26 AST 13 U/L (15-37) L 10/15/21 04:26 ALT 20 U/L (12-78) 10/15/21 04:26 Alkaline Phosphatase 68 U/L (45-117) 10/15/21 04:26 Lipase 113 U/L (73-393) 10/15/21 04:26 Home Medications: Atorvastatin Calcium [Lipitor*] 40 mg PO DAILY 11/19/12 Duloxetine HCl [Cymbalta] 60 mg PO DAILY 11/19/12 Levothyroxine [Synthroid*] 100 mcg PO [id number] 11/19/12 Pregabalin [Lyrica*] 75 mg PO QID 11/19/12 Sitagliptin Phos/Metformin HCl [Janumet 50-1,000 mg Tablet] 1 each PO BID Tamsulosin [Flomax*] 0.4 mg PO DAILY 11/19/12 Valacyclovir [Valtrex*] 500 mg PO BID 11/19/12 Magnesium Oxide [Mag 0X*] 400 mg PO BID #60 tab 03/03/14 Fluticasone Furoate [Veramyst] 1 spr IN DAILY 04/14/17 Midodrine HCl 10 mg PO TID 04/14/17 Amox/Clavulanate [Augmentin 875-125 Tab] 1 tab PO BID 20 Days #10 tab 10/16/21 Metoprolol Tartrate [Lopressor*] 12.5 mg PO BID 30 Days #60 tab 10/16/21 Pantoprazole Sodium [Protonix] 40 mg PO BID 30 Days #60 tab 10/16/21 New Medications: Amox/Clavulanate [Augmentin 875-125 Tab] 1 tab PO BID 20 Days #10 tab Metoprolol Tartrate [Lopressor*] 12.5 mg PO BID 30 Days #60 tab Pantoprazole Sodium [Protonix] 40 mg PO BID 30 Days #60 tab Physician Discharge Instructions: Patient presented with dark red / maroon stool. CT abdomen/pelvis was negative for acute process. He did not have any further bowel movements. Hemoglobin remained stable in the 11s. He was monitored with serial H/H, empirically treated with antibiotics given history of diverticulitis and prior bleeds. GI - Dr. Neumann was consulted. Patient was deemed stable for discharge home with Augmentin. Continue Pantoprazole twice daily for 1 month, then can resume his omeprazole. Continue with soft, low fiber diet. Patient was also noted to have paroxysmal atrial fibrillation with heart rate to 100-110 briefly. On further discussion he reported feeling his heart racing at random times at home for quite some time. Suspect he has been having paroxysmal atrial fibrillation. Patient was started on metoprolol 12.5mg twice daily. Counselled on side effects. Briefly discussed with Dr. Romo over the phone, and recommended patient follow up in his office soon. Follow up: PCP within [address] Romo, Cardiology, within 2-[address] Serena in ~2-3 weeks. Call offices to schedule appointments. Time spent managing pt's care (in minutes): 40
== END 2021-10-16 10:10 | disposition home or self-care (01) | DRG 379 ==
LOC: ER 03:50 → ERHOLD 08:15 → 4TH 19:31
PROVIDERS: ADMIT Hospitalist; ATTEND Hospitalist
DX: K57.91 Diverticulosis of intestine, part unspecified, without perforation or abscess with bleeding (principal); E03.9 Hypothyroidism, unspecified; E78.5 Hyperlipidemia, unspecified; E11.40 Type 2 diabetes mellitus with diabetic neuropathy, unspecified; N40.0 Benign prostatic hyperplasia without lower urinary tract symptoms; K21.9 Gastro-esophageal reflux disease without esophagitis; I25.10 Atherosclerotic heart disease of native coronary artery without angina pectoris; I48.0 Paroxysmal atrial fibrillation; Z87.891 Personal history of nicotine dependence; Z95.1 Presence of aortocoronary bypass graft; Z20.822 Contact with and (suspected) exposure to COVID-19
CPT/HCPCS: 36415; 71045; 74177; 80048; 80076; 82947; 83690; 83735; 83880; 84443; 84484; 85025; 85027; 85610; 86850; 86900; 86901; 87811; 93005; 96365; 96366; 96375; 99285; C9113; J0744; J1160; J1940; J2543; J3475; J7030; J7040; Q9967

== ENCOUNTER 2021-10-21 19:28 | Inpatient (IN) | payer OTHER ==
--- OUTSIDE RECORDS SUMMARY | 2021-10-21 19:31 | XMS REPORT | Clinical Summary ---
:1935 Author Organization [facility] MD [facility] Address [address] [place] [address] Care Team Providers Name Role Phone Arjun Soto MD, Newton Araujo Primary Care Provider [phone] Anton Dye MD Unavailable Unavailable Anton [...] Vaccination (#1) 1935 Results Not on fileafter 10/21/2020 Insurance Payer Benefit Plan Subscriber ID Effective Phone Address Typ e / Group Dates MEDICARE MEDICARE PART [id number] 2001-Pres [phone] [facility] Medicare A AND B ent [id number] [employer] [address] [facility] [place] [address] FOR [id number] 2015-Pre [address] [employer] [place] Other [id number] Mike Peña Personal/Family Self 1935 [address] [phone] [facility] ([place]) [place] [address] Mike Peña Personal/Family Self 1935 [address]Home) [place] [address] Care Teams Food Equipment Service Technician Relationship Specialty Start Date End Date Newton Díaz Jr., MD PCP - General 04/17/15 [facility] [place] [address] Anton Dye MD PCP - External Referring 08/17/12 Anton Dye MD PCP - External Follow Up A Emma Norman MD Physician 04/24/15 Leslie5 Joey Jett [address] [address] Romina Giordano MD Physician 04/24/[address] [place] [id number] Pipo Dominguez MD Physician 04/24/[address] [place] [id number] Sang Domínguez Jr., Physician 04/24/15 Hong Whittaker, REINA Nurse Practitioner 04/24/[address] [place] [id number] Haley Cisneros [employer] Supervisor 04/24/[address] [place] [address] [address] [place] [address] Newton Díaz Jr., MD Physician 04/24/[address] [place] [id number]
--- OUTSIDE RECORDS SUMMARY | 2021-10-21 19:35 | XMS REPORT | Continuity of Care Document ---
:1935 Author Organization [facility] t Address [address] [place] [address] Care Team Providers Name Role Phone Arjun Soto MD, Newton Araujo Primary Care Physician [phone] OSKAR MOSS Attending Clinician Unavailable NEELA MORRELL Attending Clinician Unavailable Johanna Zapata RN Attending Clinician Unavailable Oskar Moss MD Attending Clinician Samir Zamorano MD Attending Clinician CHEYANNE YEN Attending Clinician Unavailable KAVYA YEN Attending Clinician Unavailable COLIN ZULETA Attending Clinician Unavailable SAMIR ZAMORANO Admitting Clinician Unavailable Samir aZmorano MD Admitting Clinician KAVYA YEN Admitting Clinician Unavailable COLIN ZULETA Admitting Clinician Unavailable Payers Payer Name Policy Type Policy Number Effective Date Expiration Date S [place] MEDICARE PART A [id number] 2001 \\T\\ B 00:00:00 FOR LIFE [id number] 2016 00:00:00 MEDICARE PART A [id number] 2001 AND B 00:00:00 FOR LIFE [id number] 2015 00:00:00 Problems Condition Condition Condition Status Onset Resolution Last Treating Co mments Source Name Details Category Date Date Treatment Clinician Date Orthostati Orthostati Disease Active U nivers c syncope c syncope 2- ity of 00:00: [place] [facility] Symptomati Symptomati Disease Active U nivers c anemia c anemia 2-27 ity of 00:00: [place] [facility] Iron Iron Disease Active Univers deficiency deficiency 2- it [place] of anemia due [place] chronic [place] chronic 00 Me dical blood loss blood loss Br anch Melena Melena Disease Active Univers 2- ity of 00:00: [place] [facility] GI bleed GI bleed Disease [facility] 2017[facility]02 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 Hypothyroi Hypothyroi Disease Active [facility] dism dism 3 [facility] 00:[facility]: [facility] 00 Center Acute Acute Disease Active [facility] blood loss blood loss 3- Luz Marina kes anemia anemia 00:00: 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 00:00: [place] [address] MD [facility] Allergies, Adverse Reactions, Alerts Allergy Allergy Status Severity Reaction(s) Onset Inactive Treating Comm ents Source Name Type Date Date Clinician NO KNOWN Drug Active Univers ALLERGIE Class ity of S [facility] Family History Family Member Diagnosis Comments Start Date Stop Date Source Natural mother Early [facility] Natural mother Heart disease [facility] Paternal grandmother Diabetes [facility] Natural sister Diabetes [facility] Social History Social Habit Start Date Stop Date Quantity Comments Source Exposure to Not sure University of SARS-CoV-2 [facility] [place] [facility] (event) Branch History SDOH [facility] Alcohol Frequency [facility] History SDOH [facility] Alcohol Std Medical Cent[facility] r Drinks History SDOH [facility] Alcohol Binge Medical Lisa ter Alcohol intake 2017-11-18 2017-11-18 Current drinker WILLI Shea 00:00:00 00:00:00 of alcohol Medical Center (finding) Alcohol Comment 2017-11-16 2017-11-16 once in a while WILLI Webber 00:00:00 00:00:00 Medical Center Tobacco use and 2017-04-15 2017-04-15 Never used WILLI Gao exposure 00:00:00 00:00:00 [facility] Sex Ass[birth year] At [birth year] WILLI Gao 00:00:00 00:00:00 Medical Center Smoking Status Start Date Stop Date Source Former smoker 2020-04-13 00:00:00 2020-04-13 00:00:00 [facility] Medications Ordered Filled Start Stop Current Ordering Indication Dosage Frequency Signature Comments Components Source Medication Medication Date Date Medication? Clinician (SIG) Name Name lactulose Yes 45mL 45 mL, Univer s (CEPHULAC) 04-15 Oral, ity of solution 45 15:00: [place] 00 First dose Medical (after Branch last modificati on) on Wed04/15/20 at 0900, Until Discontinu ed, Routine iron No 1000mg 1,000 mg, Unive rs dextran 04-14 IV ity of (INFED) 21:00: 08:59 [place] 1,000 mg in 00 :00 ONCE, 1 Medic al NaCl 0.9% dose, Martita Branc h (NS) 500 mL 04/14/20 at IV infusion 1500, 500 mL iron No 25mg 25 mg, IV Univers dextran 04-14 Piggyback, ity o f (INFED) 25 20:00: 07:59 ONCE, 1 [place] mg in NaCl 00 :00 dose, Martita Medi alphonso 0.9% (NS) 04/14/20 at [facility] 100 mL IV 1400, 100 piggyback mL valACYclovi Yes 500mg Take 500 U nivers r 500 mg 2-28 mg by ity of tablet 18:10: mouth. [address] tamsulosin Yes .4mg Take 0.4 Uni vers 0.4 mg 24 2-28 mg by ity of hr capsule 18:10: mouth. [address] valACYclovi 0 Yes 500mg Take 500 U nivers r 500 mg 2-28 mg by ity of tablet 18:10: mouth. [address] tamsulosin Yes .4mg Take 0.4 Uni vers 0.4 mg 24 2-28 mg by ity of hr capsule 18:10: mouth. [address] aspirin 81 2020- No 81mg Take 81 mg Univers mg chewable 04-14 by mouth. it y of tablet 16:52: 00:00 [place] 24 : [facility] sitagliptan 2020- No 1{tbl} Take 1 U nivers -metformin 04-14 tablet by ity of 50-500 mg 16:52: 00:00 mouth 2 [place] per tablet 24 :00 (two) Medical times Branch daily with meals. magnesium 2020- No 400mg Take 400 Un stephanie oxide 400 04-14 mg by ity of mg tablet 16:52: 00:00 mouth 2 [place] 24 :00 (two) Medical times [place] daily. omeprazole 2020- No 40mg Take 40 mg Univers 40 mg 04-14 by mouth. ity of capsule 16:52: 00:00 [place] 24 : [facility] NaCl 0.9% Yes 1000mL at 75 Unive rs (NS) IV 2-28 mL/hr, IV ity of infusion 15:30: [place]fusion[place] 1,000 mL 00 CONTINUOUS Medic al , Starting Branch [place] 04/14/20 at 0930, Until Discontinu ed, Routine atorvastati Yes 40mg 40 mg, Univ ers n (LIPITOR) 2-28 Oral, QHS, it y of tablet 40 03:00: [place] 00 on [facility] 04/13/20 at Branch 2100, Until Discontinu ed, Routine ferrous 2020- No [id number] 325mg Take 1 Uni vers sulfate 04-14 tablet by ity of (IRON) 325 00:00: 05:59 mouth [place] mg (65 mg 00 :00 every Medical iron) other day Branch tablet for 135 doses. ferrous 2020- No [id number] 325mg Take 1 Uni vers sulfate 04-14 tablet by ity of (IRON) 325 00:00: 05:59 mouth [place] mg (65 mg 00 :00 every Medical iron) other day Branch tablet for 135 doses. pantoprazol 2020- No [id number] 40mg Take 1 Univers e 40 mg EC 04-14 tablet by ity of tablet 00:00: 04:59 mouth 2 [place] 00 :00 (two) Medical times [place] daily for 30 days. pantoprazol No [id number] 40mg Take 1 Univers e 40 mg EC 04-14 tablet by ity of tablet 00:00: 04:59 mouth 2 [place] 00 :00 (two) Medical times [place] daily for 30 days. lactulose 2020- No 30mL 30 mL, Unive rs (CEPHULAC) 04-13 Oral, ity of solution 30 17:15: 15:07 DAILY, [place] mL 00 :10 First dose Medical on [facility] 04/13/20 at 1115, Until Discontinu ed, Routine valACYclovi Yes 500mg 500 mg, Un stephanie r (VALTREX) 04-13 Oral, ity of tablet 500 15:00: DAILY, [place] mg 00 First dose Medical on [facility] 04/13/20 at 0900, Until Discontinu ed, [place] tamsulosin Yes .4mg 0.4 mg, Univ ers (FLOMAX) 04-13 Oral, ity of capsule 0.4 15:00: DAILY, [place] mg 00 First dose Medical on [facility] 04/13/20 at 0900, Until Discontinu ed, Routine DULoxetine Yes 60mg 60 mg, Unive rs (CYMBALTA) 04-13 Oral, ity of capsule 60 15:00: DAILY, [place] mg 00 First dose Medical on [facility] 04/13/20 at 0900, Until Discontinu ed, Routine Sliding Yes Subcutaneo Univ ers Scale 04-13 us, TID ity of Insulin - 14:00: MEALS+HS, [place] Lispro 00 First dose Medical (HumaLOG) + on [facility] Branch Fsbg 04/13/20 at Testing 0800, Until Discontinu ed, Routine levothyroxi Yes 100ug 100 mcg, U nivers ne 04-13 Oral, ity of (SYNTHROID) 12:00: QAM-0600, [place] tablet 100 00 First dose Med ical mcg on [facility] Branch 04/13/20 at 0600, Until Discontinu ed, Routine KCL 2020- No 40meq 40 mEq, Univers (KLOR-CON 04-13 Oral, ity of M20) tablet 08:30: 07:59 ONCE, 1 [place] 40 mEq 00 :00 dose, [facility] Medical 04/13/20 at Branch 0230, Routine KCL 2020- No 40meq 40 mEq, IV Unive rs (POTASSIUM 04-13 Piggyback, it y of CHLORIDE) 08:30: 11:04 ONCE, 1 [place] 40 mEq in 00 :00 dose, Sat Medic al NaCl 0.9% 04/13/20 at [facility] ch (NS) 0230, 250 piggyback mL pantoprazol Yes 40mg 40 mg, IV U nivers e 04-13 Piggyback, ity of (PROTONIX) 06:00: Q12H, [place] 40 mg in 00 First dose Medic al NaCl 0.9% on [facility] Branch (NS) 100 mL 04/13/20 at MINI-BAG [...] swallow or has mental changes. dextrose 50 0 Yes 25mL 25 mL, Univ ers % in water 2-27 Slow IV ity of (D50W) 05:40: Push, PRN, [place] injection 07 Starting Medica l 25 mL Fri Branch 04/12/20 at 2340, Until Discontinu ed, LORENA, [...] by mouth. ity of 40 MG 14:41: [place] capsule 18 MD Jacklyn braden [facility] levothyroxi 2017-02 Yes Take by Uni vers ne 2-04 mouth. ity of (SYNTHROID, 14:41: [place] LEVOTHROID) 18 100 mcg Anderso tablet [facility] aspirin 81 2017-02 Yes 81mg Chew 81 Univ ers mg chewable 2-04 mg. ity of tablet 14:41: [place] [address] MD Jacklyn braden [facility] DULoxetine 2017-02 Yes 60mg Take 60 mg U nivers (CYMBALTA) 2-04 by mouth. ity of 60 mg 14:41: [place] capsule 18 MD Jacklyn braden [facility] pregabalin 2017-02 Yes 75mg Take 75 mg U nivers (LYRICA) 75 2-04 by mouth. ity of mg capsule 14:41: [place] [address] MD Jacklyn braden [facility] levothyroxi 2017-02 Yes Take by Uni vers ne 2-04 mouth. ity of (SYNTHROID, 14:41: [place] LEVOTHROID) 18 100 mcg Anderso tablet [facility] magnesium 2017-02 Yes 400mg Take 400 Uni vers oxide 2-04 mg by ity of (MAOX) 400 14:41: mouth. [place] mg tablet 18 MD Jacklyn braden [facility] aspirin 81 2017-02 Yes 81mg Chew 81 Univ ers mg chewable 2-04 mg. ity of tablet 14:41: [place] [address] MD Villasenor [facility] DULoxetine 2017-02 Yes 60mg Take 60 mg U nivers (CYMBALTA) 2-04 by mouth. ity of 60 mg 14:41: [place] capsule 18 MD [facility] pregabalin 2017-02 Yes 75mg Take 75 mg U nivers (LYRICA) 75 2-04 by mouth. ity of mg capsule 14:41: [place] 18 MD Jacklyn braden [facility] magnesium 2017-02 Yes 400mg Take 400 Uni vers oxide 2-04 mg by ity of (MAOX) 400 14:41: mouth. [place] mg tablet 18 MD Jacklyn braden [facility] omeprazole 2017-02 Yes 40mg Take 40 mg U nivers (PriLOSEC) 2-04 by mouth. ity of 40 MG 14:41: [place] capsule 18 MD Jacklyn braden [facility] sitaGLIPtin 2017-02 Yes Take by Uni vers -metFORMIN 2-04 mouth. ity of (JANUMET) 11:58: [place] 50 mg-1,000 17 MD mg per Anderso tablet n [facility] sitaGLIPtin 2017-02 Yes Take by Uni vers -metFORMIN 2-04 mouth. ity of (JANUMET) 11:58: [place] 50 mg-1,000 17 MD mg per Anderso tablet n [facility] atorvastati 2017-02 Yes hyperlipide 40mg QD Take [address] n (LIPITOR) 0-04 bety by mouth Luke s 40 MG 13:48: daily. Medical tablet [address] [place] levothyroxi 2017-02 Yes hypothyroid 100ug Take [address] ne 0-04 ism mcg by [facility]ukes (SYNTHROID, 13:48: mouth Medic al LEVOTHROID) 51 Every Center 100 MCG morning on tablet an empty stomach. DULoxetine 2017-02 Yes diabetic 60mg QD Take [address] (CYMBALTA) 0-04 peripheral by mouth [facility]ukes 60 MG 13:48: neuropathy daily. Medi alphonso capsule 51 [place] SITagliptin 2017-02 Yes type 2 1{tbl} Take [address] -metFORMIN 0-04 diabetes tablet by [facility]ukes (JANUMET) 13:48: mellitus mouth 2 M edical 50-1,000 mg 51 (two) Center per tablet times daily with breakfast and dinner. valACYclovi 2017-02 Yes 500mg QD Take [address] r (VALTREX) 0-04 mg by [facility]ukes 500 MG 13:48: mouth Medical tablet 51 daily. [place] tamsulosin 2017-02 Yes benign .4mg QD Take [...] 51 disease Center midodrine 2017-02 Yes 10mg Q.[id number] Take [address] (PROAMATINE 0-04 [id number] by mouth 3 [facility]ukes ) 10 MG [...] [facility] -metFORMIN 0-04 diabetes tablet by [place] (JANUMET) 13:48: mellitus mouth 2 M edical [...] 51 disease Center midodrine 2017-02 Yes 10mg Q.[id number] Take [address] (PROAMATINE 0-04 [id number] by mouth 3 [facility] ) 10 MG [...] ity of 0.4 mg 24 12:59: mouth. [place] hr capsule 38 [facility] valAC[facility]cl[facility] 2016-02 Yes 500mg Take 500 U nivers r (VALTREX) 1-22 mg by ity of 500 mg 12:59: mouth. [place] tablet 38 [facility] tamsulosin 2016-02 Yes .4mg Take 0.4 Uni vers (FLOMAX) 1-22 mg by ity of 0.4 mg 24 12:59: mouth. [place] hr capsule 38 MD Jacklyn braden [facility] valACYclovi 2016-02 Yes 500mg Take 500 U nivers r (VALTREX) 1-22 mg by ity of 500 mg 12:59: mouth. [place] tablet 38 MD Jacklyn braden [facility] atorvastati 2016-02 Yes Univer s n (LIPITOR) 0-28 ity of 10 mg 00:00: [place] tablet 00 MD Jacklyn braden [facility] atorvastati 2016-02 Yes Univer s n (LIPITOR) 0-28 ity of 10 mg 00:00: [place] tablet [facility] Yes Univer s ne 100 mcg 09-23 ity of tablet 00:00: Medical Branch levothyroxi Yes Univer s ne 100 mcg 09-23 ity of tablet 00:00: Medical Branch midodrine 10mg 10 mg 3 Univ ers 10 mg 09-18 (three) ity of tablet 00:00: 00:00 times [place] 00 :00 daily. Medical Branch atorvastati Yes 40mg 40 mg at Un stephanie n 40 mg 7-30 bedtime. ity of tablet 00:00: [place] Medical Branch DULoxetine Yes Univers 60 mg 7-30 ity of capsule 00:00: Medical Branch atorvastati Yes 40mg 40 mg at Un stephanie n 40 mg 7-30 bedtime. ity of tablet 00:00: Medical Branch DULoxetine Yes Univers 60 mg 7-30 ity of capsule 00:00: Medical Branch VERAMYST Yes Univers 27.5 1-26 ity of mcg/actuati 00:00: [place] on nasal [address] [facility] VERAMYST Yes Univers 27.5 1-26 ity of mcg/actuati 00:00: [place] on nasal [address] [facility] fluticasone Unive rs (VERAMYST) 03-12 02-26 ity of 27.5 00:00: 00:00 [place] mcg/actuati 00 :00 Medical on nasal Branch spray Vital Signs Vital Name Observation Time Observation Value Comments Source Systolic blood 2020-04-14 17:03:00 143 mm[Hg] Univer sity of pressure [facility] Diastolic blood 2020-04-14 17:03:00 79 mm[Hg] Unive rsity of pressure [facility] Heart rate 2020-04-14 17:03:00 83 /min [facility] Body temperature 2020-04-14 17:03:00 35.72 Katiana [facility] Respiratory rate 2020-04-14 17:03:00 16 /min [facility] Oxygen saturation in 2020-04-14 17:03:00 98 /min University Arterial blood by [facility] Pulse oximetry Branch Body weight 2020-04-13 05:24:00 83 kg [facility] BMI 2020-04-13 05:24:00 24.14 kg/m2 [facility] Procedures Procedure Date / Time Performing Clinician Source Performed POCT GLUCOSE 2020-04-14 13:32:00 Isa [facility] (AUTOMATED) [facility] CBC WITHOUT DIFF 2020-04-14 11:19:00 Dorota [facility] BASIC METABOLIC PANEL 2020-04-14 11:18:00 Norma [facility] (NA, K, CL, CO2, Medical Branch GLUCOSE, BUN, CREATININE, CA) FIBRINOGEN 2020-04-14 11:18:00 Dorota [facility] MAGNESIUM 2020-04-14 11:18:00 Norma [facility] POCT GLUCOSE 2020-04-14 04:02:00 Isa [facility] (AUTOMATED) [facility] PREPARE PACKED RBC 2020-04-13 23:53:17 Norma [facility] POCT GLUCOSE 2020-04-13 22:56:00 Isa [facility] (AUTOMATED) [facility] CBC WITHOUT DIFF 2020-04-13 20:31:00 Dorota [facility] TRANSFUSE PACKED RBC 2020-04-13 19:01:18 Dorota [facility] POCT GLUCOSE 2020-04-13 18:26:00 Isa [facility] (AUTOMATED) [facility] PREPARE PACKED RBC 2020-04-13 15:07:12 Dorota [facility] POCT GLUCOSE 2020-04-13 14:11:00 Isa [facility] (AUTOMATED) [facility] TROPONIN I 2020-04-13 12:20:00 Dorota [facility] CBC WITHOUT DIFF 2020-04-13 12:20:00 Dorota [facility] TRANSFUSE PACKED RBC 2020-04-13 10:58:26 Dorota [facility] ABORH CONFIRMATION 2020-04-13 07:07:00 Samir Zamor[facility] HB ABO GROUPING 2020-04-13 06:20:00 Dorota [facility] COMP. METABOLIC PANEL 2020-04-13 06:19:00 Dorota [facility] ([id number]) [facility] IRON PANEL 2020-04-13 06:19:00 Dorota, [facility] CBC WITH DIFF 2020-04-13 06:19:00 Arya, [facility] GLYCOSYLATED HEMOGLOBIN 2020-04-13 06:19:00 Dorota, [facility] (A1C) [facility] PROTHROMBIN TIME / INR 2020-04-13 06:19:[address] [facility] ACTIVATED PARTIAL 2020-04-13 06:19:00 Raya, [facility] THRMPLAS JOSE [facility] FERRITIN SERUM 2020-04-13 06:19:00 Dorota, [facility] TROPONIN I 2020-04-13 06:19:00 Dorota [facility] Plan of Care Planned Activity Planned Date Details Comments Source Future Scheduled 2021-08-20 COVID-19 Vaccination [facility] [place] Test 03:35:26 (#1) [code = MARLENE JACOME [facility] Vaccination (#1)] Center Future Scheduled 2021-08-20 COVID-19 Vaccination [facility] [place] Test 03:35:26 (#1) [code = [place]-Jonathon JACOME [facility] Vaccination (#1)] Center Encounters Start End Encounter Admission Attending Care Care Encounter Source Date/Time Date/Time Type Type Clinicians Facility Department ID 2020-12-15 Inpatient U [facility] PAM [id number] Univers 01:47:44 OSKAR [facility] 2021-09-08 2021-09-08 [id number] Univers 14:00:00 14:00:00 NEELA [id number] [facility] 2020-04-16 2020-04-16 Transition Marcy Zapata [id number] Univers 00:00:00 00:00:00 of Care Johanna Rand [id number] it y of [place] [id number] [place] [id number] [facility] 403 Branch 2020-04-12 2020-04-14 [facility] Oskar Moss [id number] [facility] 23:17:00 12:10:00 Encounter Samir Zamorano [id number]. 10 ity of [facility] [id number] [place] [id number] [facility] 100 Branch 2019-08-30 2019-08-30 Outpatient ASHLEE YEN MDA MDA [id number] 00:00:00 00:00:00 CHEYANNE braden Results Test Description Test Time Test Comments Results Result Comments Source POCT GLUCOSE (AUTOMATED) 2020-04-14 13:34:00 Test Item Value Reference Range Interpretation Comme nts POCT GLU (test code = 0053457232) 140 mg/dL 70-110 H Lab Interpretation (test code = 06200-1) [facility]normal [facility] (NA, K, CL, CO2, GLUCOSE, BUN, CREATININE, CA)2020-04-14 12:01:00 Test Item Value Reference Range Interpretation Comments NA (test code = 135 mmol/L 135-145 8209816043) K (test code = 4.3 mmol/L 3.5-5 5007718231) CL (test code = 106 mmol/L 98-108 8449013221) CO2 TOTAL (test code = 23 mmol/L 23-31 7283433089) AGAP (test code = 2-16 7864841201) BUN (test code = 11 mg/dL 7-23 5735668292) GLUCOSE (test code = 118 mg/dL 70-110 H 7204946083) CREATININE (test code = 0.98 mg/dL 0.6-1.25 7242378846) CALCIUM (test code = 8.5 mg/dL 8.6-10.6 L 6097490155) eGFR Calculation mL/min/1.73m2 (Non-) (test code = 0358669120) eGFR Calculation mL/min/1.73m2 () (test code = 8033122473) YUMI (test code = YUMI) Association of [...] tests). Lab Interpretation Abnormal (test code = 41634-6) [facility] 12:01:00 Test Item Value Reference Range Interpretation Comments MAGNESIUM (test code = 7266870858) 1.9 mg/dL 1.7-2.4 Lab Interpretation (test code = Normal 18265-1) [facility]2021-[facility]-28 11:46:00 Test Item Value Reference Range Interpretation Comments Fibrinogen (test code = 4760543438) 307 mg/dL 167-453 Lab Interpretation (test code = Normal 87839-2) [facility] WITHOUT [id number] 11:42:00 Test Item Value Reference Range Interpretation Comments WBC (test code = 6690-2) See_Comment [A utomated message] The system [employer] generated this result transmit rigoberto reference range : 4.20 - 10.70 10*3/?L. The reference range was not used to interpret this result as normal/abnormal . RBC (test code = 789-8) See_Comment L [Au tomated message] The system [employer] generated this result transmit rigoberto reference range [...] 777-3) See_Comment [Au tomated message] The system [employer] generated this result transmit rigoberto reference range : 150 - 328 10*3/?L. The reference range was not used to interpret this result as normal/abnormal . MPV (test code = 9.5 fL 9.8-13 L 80479-5) RDW-CV (test code = 15.0 % 12.1-15.4 788-0) RDW-SD (test code = 45.3 fL 38.5-51.6 47110-5) NRBC x10^3 (test code = <0.01 See_Comment [Au tomated message] [id number]) The system [employer] generated this result transmit rigoberto reference range : 10*3/?L. The reference range was not used to interpret this result as normal/abnormal . NRBC/100 WBC (test code See_Comment [Au tomated message] = 7659685734) The system [facility] generated this result transmit rigoberto reference range : 0.0 - 10.0 /100 WBC s. The reference r pierce was not used to interpret this result as normal/abnormal . IPF % (test code = 8074818633) Lab Interpretation (test Abnormal code = 42860-4) [facility] GLUCOSE (AUTOMATED)2020-04-14 04:04:00 Test Item Value Reference Range Interpretation Comments POCT GLU (test code = 3256860032) 137 mg/dL 70-110 H Lab Interpretation (test code = Abnormal 15283-3) [facility] Center[facility]cosylated Hemoglobin (A1C)2020-04-14 00:56:00HGB D4VIfbgack: %A1c cannot be calculated due to low hemoglobin. [facility] LABORATORY SERVICESUnB[facility] UptownPrepare Packed RBC (in units), 1 [id number] 23:53:17 Test Item Value Reference Range Interpretation Comments Unit Blood Type (test O Pos code = 4410) ISBT Blood Type Code (test code = 142283) Unit Number (test [id number] code = 4411) Blood Expiration Date & Time (test code = 106591) Status Information Issued (test code = 4412) Product Red Blood Cells Identification (test code = 4413) Product Code (test [id number] Performed at [facility] code = 4414) Laboratory Services - [facility] Blood [address] [address]Iklx Free: [phone] A No. [id number] Cross Match Result Compatible (test code = 4409) [facility] (AUT[facility]ATED)2020-04-13 22:58:00 Test Item Value Reference Range Interpretation Comments POCT GLU (test code = 9453666444) 117 mg/dL 70-110 H Lab Interpretation (test code = Abnormal 21197-0) [facility] CenterCBC WITHOUT [id number] 20:37:00 Test Item Value Reference Range Interpretation Comments WBC (test code = 6690-2) See_Comment [A utomated message] The system [employer] generated this result transmit rigoberto reference range : 4.20 - 10.70 10*3/?L. The reference range was not used to interpret this result as normal/abnormal . RBC (test code = 789-8) See_Comment L [Au tomated message] The system [employer] generated this result transmit rigoberto reference range [...] 777-3) See_Comment [Au tomated message] The system [employer] generated this result transmit rigoberto reference range : 150 - 328 10*3/?L. The reference range was not used to interpret this result as normal/abnormal . MPV (test code = 9.1 fL 9.8-13 L 65299-7) RDW-CV (test code = 14.6 % 12.1-15.4 788-0) RDW-SD (test code = 44.7 fL 38.5-51.6 01859-2) NRBC x10^3 (test code = <0.01 See_Comment [Au tomated message] 2740675476) The system [employer] generated this result transmit rigoberto reference range : 10*3/?L. The reference range was not used to interpret this result as normal/abnormal . NRBC/100 WBC (test code See_Comment [Au tomated message] = 8039397750) The system [employer] generated this result transmit rigoberto reference range : 0.0 - 10.0 /100 WBC s. The reference r pierce was not used to interpret this result as normal/abnormal . IPF % (test code = 6656177647) Lab Interpretation (test Abnormal code = 42740-6) [facility] (AUTOMATED)2020-04-13 18:27:00 Test Item Value Reference Range Interpretation Comments POCT GLU (test code = 4551978838) 204 mg/dL 70-110 H Lab Interpretation (test code = Abnormal 81020-0) [facility] CenterPrepare Packed RBC (in units), 2 Units 2020-04-13 15:07:12 Test Item Value Reference Range Interpretation Comments Cross Match Result Compatible (test code = 4409) ISBT Blood Type Code (test code = 305500) Unit Blood Type (test O Pos code = 4410) Unit Number (test [id number] code = 4411) Blood Expiration Date & Time (test code = 309520) Status Information Issued (test code = 4412) Product Red Blood Cells Identification (test code = 4413) Product Code (test X9911M35 Performed at [facility] code = 4414) Laboratory Services - [facility] Blood [address] [place], [place] [address]Samuel hayes [address]Yocc Free: [phone] A No. [id number] [facility] CenterPO[facility]UCOSE (AUTOMATED)2020-04-13 14:16:00 Test Item Value Reference Range Interpretation Comments POCT GLU (test code = 9726547429) 145 mg/dL 70-110 H Lab Interpretation (test code = Abnormal 57678-8) [facility] CenterTROPONIN [id number] 13:19:00 Test Item Value Reference Range Interpretation Comments TROPONIN I (test 0.049 ng/mL See_Comment H [Automated code = 0651532437) message] The system which generated this result [...] ? Lab Interpretation Abnormal (test code = 36088-8) [facility] CenterCB WITHOUT [id number] 12:54:00 Test Item Value Reference Range Interpretation Comments WBC (test code = 6690-2) See_Comment [A utomated message] The system [employer] generated this result transmit rigoberto reference range : 4.20 - 10.70 10*3/?L. The reference range was not used to interpret this result as normal/abnormal . RBC (test code = 789-8) See_Comment L [Au tomated message] The system [employer] generated this result transmit rigoberto reference range [...] 777-3) See_Comment [Au tomated message] The system [employer] generated this result transmit rigoberto reference range : 150 - 328 10*3/?L. The reference range was not used to interpret this result as normal/abnormal . MPV (test code = 9.5 fL 9.8-13 L 49069-3) RDW-CV (test code = 15.1 % 12.1-15.4 788-0) RDW-SD (test code = 47.6 fL 38.5-51.6 75703-1) NRBC x10^3 (test code = <0.01 See_Comment [Au tomated message] 1338608519) The system [employer] generated this result transmit rigoberto reference range : 10*3/?L. The reference range was not used to interpret this result as normal/abnormal . NRBC/100 WBC (test code See_Comment [Au tomated message] = 7177857895) The system [facility] generated this result transmit rigoberto reference range : 0.0 - 10.0 /100 WBC s. The reference r pierce was not used to interpret this result as normal/abnormal . IPF % (test code = 9585757836) Lab Interpretation (test Abnormal code = 60293-9) [facility] CenterACTIVATED PARTIAL THRMPLAS [id number] 08:29:00 Test Item Value Reference Range Interpretation Comments APTT Patient (test code See_Comment L [Au tomated message] = 3173-2) The system [employer] generated this result transmitted ref erence range: 26 - 36 Seconds. The reference range was not used to int erpret this result as normal/abnormal . Lab Interpretation (test Abnormal code = 64121-4) [facility] CenterABORH [id number] 07:49:38 Test Item Value Reference Range Interpretation Comments ABO & RH (test code O Positive Performe d at [facility] = 20) Laboratory Serv [facility] Blood Bank[address] [place] [address] s [address]Folb Free: [phone] A No. [id number] [facility] CenterFERRITIN [id number] 07:36:00 Test Item Value Reference Range Interpretation Comments FERRITIN (test code = 5.9 ng/mL 18-464 L 3881062167) YUMI (test code = YUMI) Biotin has been reported to cause a negative bias, interpret results relative to patient's use of biotin. Lab Interpretation (test Abnormal code = 91822-6) [facility] CenterType and Screen - ONCE [id number] 07:34:15 Test Item Value Reference Range Interpretation Comments ABO & RH (test code O POSITIVE Performe d at [facility] = 20) Laboratory Serv [facility] Blood [facility] [place] [address] s [address]Vask Free: [phone] A No. [id number] IAT (test code = Negative Performed a t [facility] 1185) Laboratory Serv [facility] Blood [facility] [place] [address] s [address]Vgyp Free: [phone] A No. [id number] [facility] CenterIRON [id number] 07:23:00 Test Item Value Reference Range Interpretation Comments IRON (test code = <10 50-160 L 1766953444) TIBC (test code = 403 ug/dL 250-410 7818362189) % FE SAT (test code = Unable to calculate 5025344042) because, either iron serum, total ir on binding capacit y, or both are less t loya the sensitivity of the analyzer. Lab Interpretation (test Abnormal code = 24700-2) [facility] CenterTROPONIN [id number] 07:13:00 Test Item Value Reference Range Interpretation Comments TROPONIN I (test 0.046 ng/mL See_Comment H [Automated code = 4090277161) message] The system which generated this result [...] ? Lab Interpretation Abnormal (test code = 35685-0) [facility] CenterCOMP. METABOLIC PANEL (93076)2020-04-13 06:58:00 Test Item Value Reference Range Interpretation Comments NA (test code = 136 mmol/L 135-145 1746169347) K (test code = 3.1 mmol/L 3.5-5 L 6708769830) CL (test code = 107 mmol/L 98-108 8333589359) CO2 TOTAL (test code = 25 mmol/L 23-31 5145726887) AGAP (test code = 2-16 8721195349) BUN (test code = 17 mg/dL 7-23 5332107663) GLUCOSE (test code = 120 mg/dL 70-110 H 6389009662) CREATININE (test code = 0.87 mg/dL 0.6-1.25 3329542566) TOTAL BILI (test code = 0.4 mg/dL 0.1-1.1 7779780443) CALCIUM (test code = 7.3 mg/dL 8.6-10.6 L 7669742767) T PROTEIN (test code = 5.3 g/dL 6.3-8.2 L 8550503419) ALBUMIN (test code = 2.8 g/dL 3.5-5 L 6763157400) ALK PHOS (test code = 48 U/L 34-122 8938672769) ALTv (test code = 10 U/L 5-50 1742-6) AST(SGOT) (test code = 20 U/L 13-40 4367662446) eGFR Calculation mL/min/1.73m2 (Non-) (test code = 6858782266) eGFR Calculation mL/min/1.73m2 () (test code = 7180725667) YUMI (test code = YUMI) Association of [...] tests). Lab Interpretation Abnormal (test code = 96956-8) [facility] CenterPROTHROMBIN TIME / [id number] 06:57:00 Test Item Value Reference Range Interpretation Comments PROTIME PATIENT (test See_Comment [Auto mated message] code = 5964-2) The system [employer] generated this result transmitted ref erence range: 10.1 - 1 2.6 Seconds. The re ference range was not u sed to interpret this result as normal/abnor mal. INR (test code = 6301-6) Nor mal INR <1.1; Warfarin Therap eutic range 2.0 to 3. 0 or 2.5 to 3.5, dep ending upon the indica tions. Lab Interpretation (test Normal code = 14420-4) [facility] CenterCBC WITH [id number] 06:33:00 Test Item Value Reference Range Interpretation [...] RDW-SD (test code = 47.8 fL 38.5-51.6 53399-0) RDW-CV (test code = 15.4 % 12.1-15.4 788-0) PLT (test code = See_Comment [Automated 777-3) message] The sy stem which generated this result transmitted reference range : 150 - 328 10*3/ ?L. The reference r pierce was not used to interpret this result as normal/abnormal . MPV (test code = 9.6 fL 9.8-13 L 50338-3) NRBC/100 WBC (test See_Comment [Automat ed code = 8998880652) message] The system which generated this result transmitted reference range : 0.0 - 10.0 /100 WBCs. The refer ence range was not u sed to interpret th is result as normal/abnormal . NRBC x10^3 (test code <0.01 See_Comment [Auto mated = 8486060839) message] The s ystem which generated this result transmitted reference range : 10*3/?L. The reference range was not used to interpret this result as normal/abnormal . GRAN MAT (NEUT) % 63.5 % (test code = 770-8) IMM GRAN % (test code 0.70 % = 0251296842) LYMPH % (test code = 21.7 % 736-9) MONO % (test code = 8.0 % 5905-5) EOS % (test code = 5.6 % 713-8) BASO % (test code = 0.5 % 706-2) GRAN MAT x10^3(ANC) 3.87 10*3/uL 1.99-6.95 (test code = 7646171143) IMM GRAN x10^3 (test 0.04 10*3/uL 0-0.06 code = 3083818936) LYMPH x10^3 (test code 1.32 10*3/uL 1.09-3.23 = 731-0) MONO x10^3 (test code 0.49 10*3/uL 0.36-1.02 = 742-7) EOS x10^3 (test code = 0.34 10*3/uL 0.06-0.53 711-2) BASO x10^3 (test code 0.03 10*3/uL 0.01-0.09 = 704-7) Lab Interpretation Abnormal (test code = 96302-2) [facility] CenterPOCT-GLUCOSE [id number] 07:54:00 Test Item Value Reference Range Interpretation Comments POC-GLUCOSE METER 87 mg/dL 70-[address] [facility] 6720 (BEAKER) (test code = [place] [address] 1538) [id number] 06:53:00 Test Item Value Reference Range Interpretation Comments MAGNESIUM (BEAKER) (test code = 1.7 mg/dL 1.6-2.6 627) BASIC METABOLIC [id number] 06:53:00 Test Item Value Reference Range Interpretation [...] PATIEN TS. CBC W/PLT COUNT & AUTO [id number] 06:50:00 Test Item Value Reference Range Interpretation [...] (BEAKER) (test code = 2801) HEMOGLOBIN AND [id number] 06:36:00 Test Item Value Reference Range Interpretation Comments HEMOGLOBIN (BEAKER) (test code = 8.2 GM/DL 13.7-17.5 L 410) HEMATOCRIT (BEAKER) (test code = 26.2 % 40.1-51.0 L 411) POCT-GLUCOSE [id number] 00:26:00 Test Item Value Reference Range Interpretation Comments POC-GLUCOSE METER 96 mg/dL 70-[address] [facility] 67[address] (BEAKER) (test code = [place] [address] 1538) [id number] 17:54:00 Test Item Value Reference Range Interpretation Comments MAGNESIUM (BEAKER) (test code = 1.5 mg/dL 1.6-2.6 L 627) BASIC METABOLIC [id number] 17:54:00 Test Item Value Reference Range Interpretation [...] NOT APPLICABLE FOR DIALYSIS PATIEN TS. PROTHROMBIN [id number] 17:33:00 Test Item Value Reference Range Interpretation Comments PROTIME (BEAKER) (test code = 15.0 seconds 11.7-14.7 H 759) INR (BEAKER) (test code = 370) 1.2 <=5.9 RECOMMENDED COUMADIN/WARFARIN INR THERAPY RANGESSTANDARD DOSE: 2.0 - 3.0 Includes: PROPHYLAXIS for venous thrombosis, systemic embolization; TREATMENT for venous thrombosis and/or pulmonary embolus.HIGH RISK: Target INR is 2.5-3.5 for patients with mechanical heart valves.HEMOGLOBIN AND [id number] 17:25:00 Test Item Value Reference Range Interpretation Comments HEMOGLOBIN (BEAKER) (test code = 8.9 GM/DL 13.7-17.5 L 410) HEMATOCRIT (BEAKER) (test code = 27.8 % 40.1-51.0 L 411) POCT-GLUCOSE [id number] 17:03:00 Test Item Value Reference Range Interpretation Comments POC-GLUCOSE METER 84 mg/dL 70-[address] [facility] 67 (BEAKER) (test code = FABIOLA Tobias [facility] [address] 1538) POCT-GLUCOSE [id number] 15:23:00 Test Item Value Reference Range Interpretation Comments POC-GLUCOSE METER 85 mg/dL 70-110 TESTED AT [place] [address] (BEAKER) (test code = [facility] Micheline [facility] [address] 1538) POCT-GLUCOSE [id number] 07:16:00 Test Item Value Reference Range Interpretation Comments POC-GLUCOSE METER 104 mg/dL 70-110 TESTED AT [place] [address] (BEAKER) (test code = [facility] Micheline [facility] 1538) [address] HEMOGLOBIN AND [id number] 01:14:00 Test Item Value Reference Range Interpretation Comments HEMOGLOBIN (BEAKER) (test code = 6.7 GM/DL 13.7-17.5 L 410) HEMATOCRIT (BEAKER) (test code = 21.6 % 40.1-51.0 L 411) BASIC METABOLIC [id number] 20:19:00 Test Item Value Reference Range Interpretation [...] APPLICABLE FOR DIALYSIS PATIEN TS. HEPATIC FUNCTION [id number] 20:19:00 Test Item Value Reference Range Interpretation [...] slightly (test code = 347) hemolyzed PROTHROMBIN TIME/[id number] 20:10:00 Test Item Value Reference Range Interpretation [...] mechanical heart valves.CBC W/PLT COUNT & AUTO [id number] 20:01:00 Test Item Value Reference Range Interpretation [...] PERCENT (BEAKER) (test code = 2801) POCT-GLUCOSE [id number] 17:01:00 Test Item Value Reference Range Interpretation Comments POC-GLUCOSE METER 128 mg/dL 70-[address] [facility] 67[address] (BEAKER) (test code = [place] 1538) [address] ANG, VISCERAL [id number] 16:35:00FINAL REPORT Mesenteric angiogram, 04/15/2017. History: GI bleed. Modality: Fluoroscopy. Sedation: Versed 1.0 mg and fentanyl 50 mcg was given intravenously for conscious sedation . Vital signs were monitored throughout the procedure by a nurse, and remained stable. Physician intra-service time was 30 minutes. Anesthesia: Two percent Lidocaine without epinephrine. Approach: Right common femoral artery. Estimated blood loss: < 5 cc. Specimen: None. briquette operator: Maxim Sims MD. Senior Asset Manager: None. Fluoroscopy Time: 2.1 min.Reference Air Kerma (Ka, r): 360 mGy. Technique: Informed written consent was obtained. Discussion of risks, benefits, and alternatives were made with the patient. The patient expressed understanding and agreed to proceed. A universal timeout was performed prior to starting the procedure. All elements maximal sterile barrier technique was utilizedfor this procedure, including utilization of sterile scrub [...] The needle was removed and a 4 [place] Zealander micropuncture sheath was placed, and the 0.018 wire was exchanged for 0.035 inch J-wire. A 5 [place]ander sheath was placed. A 5 [place]ander Ag B catheter was used to select the celiac trunk and SMA for multiple DSA runs. This was exchanged for a Ag reverse 2.5 catheter which was used to select the ANUP for multiple DSA runs. The catheter was removed. Injection was performed through the sheath for a DSA runof the right femoral artery. The sheath was removed, the arteriotomy was closed, and hemostasis was obtained using a Mynx closure device. Vital signs were monitored throughout the procedure by a nurse,and remained stable. The patient tolerated the procedure well and left the department in the same condition. FINDINGS: 1. Celiac injection: There is patency of the left gastric, gastroduodenal, and splenic arteries. The left hepatic artery is normal in appearance and patent without evidence of active e xtravasation, pseudoaneurysm, or abnormal vasculature.2. SMA injection: The [...] MDReport Verified Date/Time: 04/22/2017 16:35:40 Reading Location: [address] Ultrasound Reading Room POCT-GLUCOSE [id number] 11:27:00 Test Item Value Reference Range Interpretation Comments POC-GLUCOSE METER 238 mg/dL 70-110 H TESTED AT [place] [address] ([facility]) (test code = FABIOLA Tobias [facility] 1538) [address] POCT-GLUCOSE [id number] 08:08:00 Test Item Value Reference Range Interpretation Comments POC-GLUCOSE METER 146 mg/dL 70-110 H TESTED AT [place] [address] ([facility]) (test code = FABIOLA Tobias [facility] 1538) [address] TSH/FREE T4 IF [id number] 05:24:00 Test Item Value Reference Range Interpretation Comments THYROID STIMULATING HORMONE 4.44 uIU/mL 0.35-4.94 (BEAKER) (test code = 772) [id number] 05:17:00 Test Item Value Reference Range Interpretation Comments PHOSPHORUS (BEAKER) (test code = 4.2 mg/dL 2.3-4.7 604) [id number] 05:17:00 Test Item Value Reference Range Interpretation Comments MAGNESIUM (BEAKER) (test code = 1.8 mg/dL 1.6-2.6 627) BASIC METABOLIC [id number] 05:17:00 Test Item Value Reference Range Interpretation [...] PATIEN TS. CBC W/PLT COUNT & AUTO [id number] 04:53:00 Test Item Value Reference Range Interpretation [...] (BEAKER) (test code = 2801) HEMOGLOBIN AND [id number] 04:48:00 Test Item Value Reference Range Interpretation Comments HEMOGLOBIN (BEAKER) (test code = 9.1 GM/DL 13.7-17.5 L 410) HEMATOCRIT (BEAKER) (test code = 27.7 % 40.1-51.0 L 411) POCT-GLUCOSE [id number] 21:33:00 Test Item Value Reference Range Interpretation Comments POC-GLUCOSE METER 268 mg/dL 70-[address] [facility] [address] (BEAKER) (test code = FABIOLA Tobias [facility] 1538) [address] POCT-GLUCOSE [id number] 17:36:00 Test Item Value Reference Range Interpretation Comments POC-GLUCOSE METER 131 mg/dL 70-[address] [facility] [address] (BEAKER) (test code = FABIOLA Tobias [facility] 1538) [address] HEMOGLOBIN AND [id number] 17:09:00 Test Item Value Reference Range Interpretation Comments HEMOGLOBIN (BEAKER) (test code = 9.1 GM/DL 13.7-17.5 L 410) HEMATOCRIT (BEAKER) (test code = 27.0 % 40.1-51.0 L 411) POCT-GLUCOSE [id number] 11:29:00 Test Item Value Reference Range Interpretation Comments POC-GLUCOSE METER 243 mg/dL 70-[address] [facility] [address] (BEAKER) (test code = [place] 1538) [address] BASIC METABOLIC [id number] 04:05:00 Test Item Value Reference Range Interpretation [...] S NOT APPLICABLE FOR DIALYSIS PATIEN TS. [id number] 03:52:00 Test Item Value Reference Range Interpretation Comments PHOSPHORUS (BEAKER) (test code = 3.5 mg/dL 2.3-4.7 604) [id number] 03:52:00 Test Item Value Reference Range Interpretation Comments MAGNESIUM (BEAKER) (test code = 1.6 mg/dL 1.6-2.6 627) CBC W/PLT COUNT & AUTO [id number] 03:42:00 Test Item Value Reference Range Interpretation [...] % 0-1 PERCENT (BEAKER) (test code = 6245) POCT-GLUCOSE [id number] 23:56:00 Test Item Value Reference Range Interpretation Comments POC-GLUCOSE METER 149 mg/dL 70-[address] [facility] 67[address] (BEAKER) (test code = [place] 1538) [address] HEMOGLOBIN AND [id number] 23:48:00 Test Item Value Reference Range Interpretation Comments HEMOGLOBIN (BEAKER) (test code = 8.3 GM/DL 13.7-17.5 L 410) HEMATOCRIT (BEAKER) (test code = 24.7 % 40.1-51.0 L 411) POCT-GLUCOSE [id number] 18:37:00 Test Item Value Reference Range Interpretation Comments POC-GLUCOSE METER 149 mg/dL 70-[address] [facility] 67[address] (BEAKER) (test code = [facility] 1538) [address] HEMOGLOBIN AND [id number] 14:27:00 Test Item Value Reference Range Interpretation Comments HEMOGLOBIN (BEAKER) (test code = 9.0 GM/DL 13.7-17.5 L 410) HEMATOCRIT (BEAKER) (test code = 27.0 % 40.1-51.0 L 411) POCT-GLUCOSE [id number] 12:21:00 Test Item Value Reference Range Interpretation Comments POC-GLUCOSE METER 122 mg/dL 70-[address] [facility] (test code = [facility] 1538) [address] BASIC METABOLIC [id number] 04:49:00 Test Item Value Reference Range Interpretation [...] S NOT APPLICABLE FOR DIALYSIS PATIEN TS. [id number] 04:43:00 Test Item Value Reference Range Interpretation Comments MAGNESIUM (BEAKER) (test code = 1.5 mg/dL 1.6-2.6 L 627) [id number] 04:43:00 Test Item Value Reference Range Interpretation Comments PHOSPHORUS (BEAKER) (test code = 3.4 mg/dL 2.3-4.7 604) CBC W/PLT COUNT & AUTO [id number] 04:16:00 Test Item Value Reference Range Interpretation [...] (BEAKER) (test code = 2801) HEMOGLOBIN AND [id number] 23:11:00 Test Item Value Reference Range Interpretation Comments HEMOGLOBIN (BEAKER) (test code = 7.4 GM/DL 13.7-17.5 L 410) HEMATOCRIT (BEAKER) (test code = 22.0 % 40.1-51.0 L 411) POCT-GLUCOSE [id number] 22:00:00 Test Item Value Reference Range Interpretation Comments POC-GLUCOSE METER 163 mg/dL 70-110 H TESTED AT [place] [address] ([facility]) (test code = [facility] 1538) [address] POCT-GLUCOSE [id number] 17:19:00 Test Item Value Reference Range Interpretation Comments POC-GLUCOSE METER 151 mg/dL 70-110 H TESTED AT [place] [address] ([facility]) (test code = [facility] 1538) [address] HEMOGLOBIN AND [id number] 16:24:00 Test Item Value Reference Range Interpretation Comments HEMOGLOBIN (BEAKER) (test code = 8.4 GM/DL 13.7-17.5 L 410) HEMATOCRIT ([facility]) (test code = 25.2 % 40.1-51.0 L 411) POCT-GLUCOSE [id number] 09:30:00 Test Item Value Reference Range Interpretation Comments POC-GLUCOSE METER 96 mg/dL 70-110 TESTED AT [place] [address] ([facility]) (test code = [facility] [address] 1538) CBC W/PLT COUNT & AUTO [id number] 09:10:00 Test Item Value Reference Range Interpretation Comments WHITE BLOOD CELL COUNT ([facility]) 7.4 K/ L 3.5-10.5 (test code = 775) RED BLOOD CELL COUNT (BEAKER) 2.36 M/ L 4.63-6.08 L (test code [...] (BEAKER) (test code = 2801) BASIC METABOLIC [id number] 07:12:00 Test Item Value Reference Range Interpretation [...] S NOT APPLICABLE FOR DIALYSIS PATIEN TS. [id number] 07:10:00 Test Item Value Reference Range Interpretation Comments MAGNESIUM (BEAKER) 1.7 mg/dL 1.6-2.6 Specimen slightly (test code = 627) hemolyzed [id number] 07:10:00 Test Item Value Reference Range Interpretation Comments PHOSPHORUS (BEAKER) 2.0 mg/dL 2.3-4.7 L Specimen slightly (test code = 604) hemolyzed [id number] 06:24:00 Test Item Value Reference Range Interpretation [...] 2.5-3.5 for patients with mechanical heart valves.PROTHROMBIN TIME/[id number] 06:23:00 Test Item Value Reference Range Interpretation Comments PROTIME (BEAKER) (test code = 15.4 seconds 11.7-14.7 H 759) INR (BEAKER) (test code = 370) 1.2 <=5.9 RECOMMENDED COUMADIN/WARFARIN INR THERAPY RANGESSTANDARD DOSE: 2.0 - 3.0 Includes: PROPHYLAXIS for venous thrombosis, systemic embolization; TREATMENT for venous thrombosis and/or pulmonary embolus.HIGH RISK: Target INR is 2.5-3.5 for patients with mechanical heart valves.HEMOGLOBIN AND [id number] 23:40:00 Test Item Value Reference Range Interpretation Comments HEMOGLOBIN (BEAKER) (test code = 7.3 GM/DL 13.7-17.5 L 410) HEMATOCRIT (BEAKER) (test code = 21.7 % 40.1-51.0 L 411) POCT-GLUCOSE [id number] 23:37:00 Test Item Value Reference Range Interpretation Comments POC-GLUCOSE METER 114 mg/dL 70-110 H [facility] AT [place] [address] [facility] (test code = [facility] 1538) [address] HEMOGLOBIN AND [id number] 17:46:00 Test Item Value Reference Range Interpretation Comments HEMOGLOBIN (BEAKER) (test code = 7.2 GM/DL 13.7-17.5 L 410) HEMATOCRIT (BEAKER) (test code = 22.0 % 40.1-51.0 L 411) POCT-GLUCOSE [id number] 17:29:00 Test Item Value Reference Range Interpretation Comments POC-GLUCOSE METER 146 mg/dL 70-110 H TESTED AT [place] [address] ([facility] (test code = [facility] [place] 1538) [id number] PROTHROMBIN [id number] 12:38:00 Test Item Value Reference Range Interpretation Comments PROTIME (BEAKER) (test code = 17.0 seconds 11.7-14.7 H 759) INR (BEAKER) (test code = 370) 1.4 <=5.9 RECOMMENDED COUMADIN/WARFARIN INR THERAPY RANGESSTANDARD DOSE: 2.0 - 3.0 Includes: PROPHYLAXIS for venous thrombosis, systemic embolization; TREATMENT for venous thrombosis and/or pulmonary embolus.HIGH RISK: Target INR is 2.5-3.5 for patients with mechanical heart valves.[id number] 12:38:00 Test Item Value Reference Range Interpretation [...] for patients with mechanical heart valves.HEMOGLOBIN AND [id number] 12:21:00 Test Item Value Reference Range Interpretation Comments HEMOGLOBIN (BEAKER) (test code = 7.1 GM/DL 13.7-17.5 L 410) HEMATOCRIT (BEAKER) (test code = 21.7 % 40.1-51.0 L 411) POCT-GLUCOSE [id number] 12:01:00 Test Item Value Reference Range Interpretation Comments POC-GLUCOSE METER 147 mg/dL 70-[address] [facility] 6720 (BEAKER) (test code = [place] 1538) [address] [id number] 09:30:00 Test Item Value Reference Range Interpretation Comments PHOSPHORUS (BEAKER) (test code = 2.3 mg/dL 2.3-4.7 604) [id number] 09:30:00 Test Item Value Reference Range Interpretation Comments MAGNESIUM (BEAKER) (test code = 1.8 mg/dL 1.6-2.6 627) BASIC METABOLIC [id number] 09:30:00 Test Item Value Reference Range Interpretation [...] PATIEN TS. CBC W/PLT COUNT & AUTO [id number] 08:40:00 Test Item Value Reference Range Interpretation [...] 417) IMMATURE GRANULOCYTES-RELATIVE 1 % 0-1 PERCENT (AKER) (test code = 2801) POCT-GLUCOSE [id number] 07:17:00 Test Item Value Reference Range Interpretation Comments POC-GLUCOSE METER 151 mg/dL 70-110 H TESTED AT [place] [address] ([facility]) ([facility] 1538) [address] POCT-GLUCOSE [id number] 02:45:00 Test Item Value Reference Range Interpretation Comments POC-GLUCOSE METER 164 mg/dL 70-110 H TESTED AT [place] [address] ([facility]) (test code = [facility] Micheline [facility] 1538) [address] HEMOGLOBIN AND [id number] 01:50:00 Test Item Value Reference Range Interpretation Comments HEMOGLOBIN (BEAKER) (test code = 6.3 GM/DL 13.7-17.5 L 410) HEMATOCRIT (BEAKER) (test code = 19.7 % 40.1-51.0 L 411) HEMOGLOBIN AND [id number] 20:50:00 Test Item Value Reference Range Interpretation Comments HEMOGLOBIN (BEAKER) (test code = 7.1 GM/DL 13.7-17.5 L 410) HEMATOCRIT (BEAKER) (test code = 22.0 % 40.1-51.0 L 411) [id number] 19:35:00 Test Item Value Reference Range Interpretation Comments PROCALCITONIN (BEAKER) (test code = < ng/mL <0.05 3036) SEPSIS RISK (ng/mL)Low: 0.05-0.50Intermediate: 0.51-2.00High: >=2.01LACTIC ACID, VENOUS, WHOLE [id number] 17:58:00 Test Item Value Reference Range Interpretation Comments LACTATE BLOOD VENOUS (2) (BEAKER) 1.1 mmol/L 0.5-2.2 (test code = 2872) Effective 06/19/2015: Units/Reference Range ChangeNew: 0.5-2.2 mmol/L Previous: 5- 20 mg/dLRAD, CHEST, 1 VIEW, NON [id number] 17:31:00Reason for exam:- >SOBShould this be performed [...] fusion hardware is partially visualized. Signed: Bettye Vermaeport Verified Date/Time: 04/15/2017 17:31:41 Reading Location: [facility] Radiology Reading Room C METABOLIC [id number] 17:17:00 Test Item Value Reference Range Interpretation [...] S NOT APPLICABLE FOR DIALYSIS PATIEN TS. [id number] 17:04:00 Test Item Value Reference Range Interpretation Comments PHOSPHORUS (BEAKER) (test code = 2.4 mg/dL 2.3-4.7 604) [id number] 17:04:00 Test Item Value Reference Range Interpretation Comments MAGNESIUM (BEAKER) (test code = 1.8 mg/dL 1.6-2.6 627) HEPATIC FUNCTION [id number] 17:04:00 Test Item Value Reference Range Interpretation [...] code = 11 U/L 6-55 347) PROTHROMBIN [id number] 16:47:00 Test Item Value Reference Range Interpretation [...] mechanical heart valves.CBC W/PLT COUNT & AUTO [id number] 16:41:00 Test Item Value Reference Range Interpretation [...] (BEAKER) (test code = 2801) HEMOGLOBIN AND [id number] 16:40:00 Test Item Value Reference Range Interpretation Comments HEMOGLOBIN (BEAKER) (test code = 7.4 GM/DL 13.7-17.5 L 410) HEMATOCRIT (BEAKER) (test code = 23.2 % 40.1-51.0 L 411)"
--- NOTE | 2021-10-21 19:53 | RAD REPORT ---
EXAM DESCRIPTION: CT - Ct Stroke Brain Wo Cont - 10/21/2021 7:44 pm CLINICAL HISTORY: stroke suspect COMPARISON: Head Brain Wo Cont dated 04/12/2020; Head Brain Wo Cont dated 08/29/2015 TECHNIQUE: All CT scans are performed using dose optimization technique as appropriate and may inclu de automated exposure control or mA/KV adjustment according to patient size. FINDINGS: No intracranial hemorrhage, hydrocephalus or extra-axial fluid collection.No areas of brai n edema or evidence of midline shift. Mild chronic small vessel ischemic changes. The paranasal sinuses and mastoids are clear. The calvarium is intact. IMPRESSION: No acute intracranial abnormality. Findings called to Dr. Ruano by Dr. Madrigal at 1940 on 10/21/21
[2021-10-21 20:10] LABS: Absolute Lymphocytes (CBC) 1.2 K/uL (0.7-4.9); Hematocrit 35.1 % (39.6-49.0); Lymphocytes % 13.3 % (15.3-44.8); MCV 98.4 fL (80-100); MPV 7.5 fL (7.6-11.3); Protime INR 0.99; RBC Red Blood Cell Count 3.57 M/uL (4.33-5.43)
[2021-10-21 20:27] LABS: ALT/SGPT 19 U/L (12-78); AST/SGOT 12 U/L (15-37); Albumin 3.4 g/dL (3.4-5.0); Alkaline Phosphatase 72 U/L (45-117); BUN Blood Urea Nitrogen 13 mg/dL (7-18); Bicarbonate 30 mmol/L (21-32); Bilirubin Total 0.4 mg/dL (0.2-1.0); C-Reactive Protein 6.28 mg/L (<3.00); Glomerular Filtration Rate 58 ml/min (=/>90); Glucose Level 215 mg/dL (74-106); NT PRO-BNP 2534 pg/mL (<450); Potassium 4.3 mmol/L (3.5-5.1); Sodium Level 140 mmol/L (136-145); Troponin High Sensitivity 13.8 pg/mL (<58.9)
[2021-10-21] MEDS ORDERED: ASPIRIN 81 MG CHEWABLE TABLET ONE (20:31)
[2021-10-21] MEDS ORDERED: FAMOTIDINE 20 MG/2 ML VIAL IV ONE (20:32)
[2021-10-21] MEDS ORDERED: NA CHLORIDE 0.9% 1,000 ML ONE (20:32)
[2021-10-21] MEDS ORDERED: FOLIC ACID 5 MG/ML VIAL ONE (20:34)
--- NOTE | 2021-10-21 20:46 | EDPHYS ---
Physician Documentation [facility] Name: Mike Peña Age: 86 yrs Sex: Male : 1935 Arrival Date: 10/21/2021 Time: 19:29 Bed 20 Private MD: ED Physician Gary Ruano HPI: 10/21 20:36 This 86 yrs old Male presents to ER via Ambulatory with complaints of Slurred wolfgang Speech, General Weakness. 20:36 The patient presents to the emergency department with a speech or higher order brain wolfgang function problem, aphasia, that is mild. Onset: The symptoms/episode began/occurred yesterday, 1 day(s) ago, at 18:00. Context: occurred at home, occurred while the patient was doing normal activity. Associated signs and symptoms: Pertinent positives: slurred speech. Severity of symptoms: At their worst the symptoms were mild. Patient's baseline: Neuro: alert and fully oriented. Current symptoms: dysphasia. The patient has not experienced similar symptoms in the past. Historical: - Allergies: 19:42 No Known Allergies; ld1 - PMHx: 19:42 Cancer; carcinoma; Diabetes - NIDDM; Diverticulitis; Hypothyroidism; ischemic heart ld1 disease; - Immunization history:: Adult Immunizations up to date, Client reports receiving the 2nd dose of the Covid vaccine. - Social history:: Smoking status: Patient denies any tobacco usage or history of. Patient/guardian denies using alcohol. - Family history:: not pertinent. ROS: 20:36 Constitutional: Negative for fever, chills, and weight loss, Eyes: Negative for injury, wolfgang pain, redness, and discharge, ENT: Negative for injury, pain, and discharge, Neck: Negative for injury, pain, and swelling, Cardiovascular: Negative for chest pain, palpitations, and edema, Respiratory: Negative for shortness of breath, cough, wheezing, and pleuritic chest pain, Abdomen/GI: Negative for abdominal pain, nausea, vomiting, diarrhea, and constipation, Back: Negative for injury and pain, : Negative for injury, bleeding, discharge, and swelling, MS/Extremity: Negative for injury and deformity, Skin: Negative for injury, rash, and discoloration, Psych: Negative for depression, anxiety, suicide ideation, homicidal ideation, and hallucinations, Allergy/Immunology: Negative for hives, rash, and allergies, Endocrine: Negative for neck swelling, polydipsia, polyuria, polyphagia, and marked weight changes, Hematologic/Lymphatic: Negative for swollen nodes, abnormal bleeding, and unusual bruising. 20:36 Neuro: Positive for speech changes. Exam: 20:36 Constitutional: This is a well developed, well nourished patient who is awake, alert, wolfgang and in no acute distress. Head/Face: Normocephalic, atraumatic. Eyes: Pupils equal round and reactive to light, extra-ocular motions intact. Lids and lashes normal. Conjunctiva and sclera are non-icteric and not injected. Cornea within normal limits. Periorbital areas with no swelling, redness, or edema. ENT: Nares patent. No nasal discharge, no septal abnormalities noted. Tympanic membranes are normal and external auditory canals are clear. Oropharynx with no redness, swelling, or masses, exudates, or evidence of obstruction, uvula midline. Mucous membranes moist. Neck: Trachea midline, no thyromegaly or masses palpated, and no cervical lymphadenopathy. Supple, full range of motion without nuchal rigidity, or vertebral point tenderness. No Meningismus. Chest/axilla: Normal chest wall appearance and motion. Nontender with no deformity. No lesions are appreciated. Cardiovascular: Regular rate and rhythm with a normal S1 and S2. No gallops, murmurs, or rubs. Normal PMI, no JVD. No pulse deficits. Respiratory: Lungs have equal breath sounds bilaterally, clear to auscultation and percussion. No rales, rhonchi or wheezes noted. No increased work of breathing, no retractions or nasal flaring. Abdomen/GI: Soft, non-tender, with normal bowel sounds. No distension or tympany. No guarding or rebound. No evidence of tenderness throughout. Back: No spinal tenderness. No costovertebral tenderness. Full range of motion. Male : Normal genitalia with no discharge or lesions. Skin: Warm, dry with normal turgor. Normal color with no rashes, no lesions, and no evidence of cellulitis. MS/ Extremity: Pulses equal, no cyanosis. Neurovascular intact. Full, normal range of motion. Neuro: Awake and alert, GCS 15, oriented to person, place, time, and situation. Cranial nerves II-XII grossly intact. Motor strength 5/5 in all extremities. Sensory grossly intact. Cerebellar exam normal. Normal gait. Psych: Awake, alert, with orientation to person, place and time. Behavior, mood, and affect are within normal limits. 20:46 ECG was reviewed by the Attending Physician. [facility] 21:13 ECG was reviewed by the Attending Physician. [facility] Vital Signs: 19:39 Weight 85 kg; ld1 19:53 BP 113 / 67; Pulse 105; Resp 24 S; Temp 98.6(O); Pulse Ox 97% on R/A; Pain 0/10; lg3 NIH Stroke Scale Scores: 19:50 NIHSS Score: 0 lg3 MDM: 19:29 Patient medically screened. [facility] 20:41 Data reviewed: vital signs, nurses notes, lab test result(s), EKG, radiologic studies, [facility] CT scan, plain films. Data interpreted: chemical technician: rate is 105 beats/min, rhythm is atrial fibrillation, Pulse oximetry: on room air is 97 %. Test interpretation: by ED physician or midlevel provider: ECG, plain radiologic studies. Counseling: I had a detailed discussion with the patient and/or guardian regarding: the historical points, exam findings, and any diagnostic results supporting the discharge/admit diagnosis, lab results, radiology results, the need for further work-up and treatment in the hospital. 10/21 19:50 Order name: Glucose, Ancillary Testing; Complete Time: 20:18 EDWY 10/21 19:56 Order name: SARS RAPID [facility] 10/21 20:11 Order name: Protime (+INR); Complete Time: 20:18 EDMS 10/21 20:11 Order name: CBC with Automated Diff; Complete Time: 20:44 EDWY 10/21 20:29 Order name: Sedimentation Rate, Westergren; Complete Time: 20:44 EDMS 10/21 20:56 Order name: Basic Metabolic Panel; Complete Time: 21:10 EDMS 10/21 20:56 Order name: Liver (Hepatic) Function; Complete Time: 21:10 EDWY 10/21 20:56 Order name: Troponin High Sensitivity; Complete Time: 21:10 EDWY 10/21 20:56 Order name: NT PRO-BNP; Complete Time: 21:10 EDWY 10/21 20:56 Order name: C-Reactive Protein; Complete Time: 21:10 EDWY 10/21 20:56 Order name: Magnesium; Complete Time: 21:10 [facility] 10/21 21:26 Order name: SARS-COV-2 Antigen Rapid; Complete Time: 23:21 [facility] 10/21 21:58 Order name: Urine Dipstick-Ancillary; Complete Time: 23:21 [facility] 10/22 05:37 Order name: CBC with Automated Diff; Complete Time: 10:20 EDWY 10/22 05:51 Order name: Basic Metabolic Panel; Complete Time: 10:20 EDWY 10/22 05:51 Order name: Phosphorus; Complete Time: 10:20 EDWY 10/22 05:51 Order name: Lipid Profile; Complete Time: 10:20 EDWY 10/22 05:51 Order name: T4,Total; Complete Time: 10:20 EDWY 10/22 05:51 Order name: T4 Free; Complete Time: 10:20 EDWY 10/22 05:51 Order name: Magnesium; Complete Time: 10:20 EDWY 10/22 05:51 Order name: Thyroid Stimulating Hormone; Complete Time: 10:20 [facility] 10/21 19:32 Order name: XRAY Chest (1 view) [facility] 10/21 19:32 Order name: EKG; Complete Time: 22:34 [facility] 10/21 19:32 Order name: Cardiac monitoring; Complete Time: 19:53 [facility] 10/21 19:32 Order name: EKG - Nurse/Tech; Complete Time: 19:53 [facility] 10/21 19:32 Order name: IV Saline Lock; Complete Time: 19:53 [facility] 10/21 19:32 Order name: Labs collected and sent; Complete Time: 19:53 [facility] 10/21 19:32 Order name: O2 Per Protocol; Complete Time: 19:53 [facility] 10/21 19:32 Order name: O2 Sat Monitoring; Complete Time: 19:53 [facility] 10/21 19:32 Order name: CT Head Angio [facility] 10/21 19:32 Order name: CT Neck Angio [facility] 10/21 19:32 Order name: Urine Dipstick-Ancillary (obtain specimen); Complete Time: 21:59 [facility] 10/21 19:55 Order name: CT; Complete Time: 20:18 [facility] 10/21 20:44 Order name: EKG; Complete Time: 22:35 [facility] 10/21 20:44 Order name: EKG - Nurse/Tech; Complete Time: 20:45 [facility] 10/21 21:26 Order name: Head angio; Complete Time: 23:21 EDMS 10/21 21:26 Order name: Neck Angio; Complete Time: 23:21 EDMS 10/22 06:03 Order name: Hemoglobin A1c; Complete Time: 10:20 EDMS 10/22 07:26 Order name: US; Complete Time: 10:20 EDMS 10/22 08:10 Order name: Glucose, Ancillary Testing; Complete Time: 10:20 EDMS 10/22 12:25 Order name: MRI EDMS 10/22 12:38 Order name: MRI EDMS 10/22 12:42 Order name: Glucose, Ancillary Testing EDMS 10/22 12:53 Order name: MRI EDMS EC:46 Rate is 104 beats/min. Rhythm is irregular. QRS [place] is Normal. SC interval is normal. wolfgang QRS interval is normal. QT interval is normal. No Q waves. T waves are Normal. No ST changes noted. Clinical impression: NSR w/ Non-specific ST/T Changes, Atrial Fibrillation, and No evidence of ischemia. Interpreted by me. Reviewed by me. 21:13 Rate is 96 beats/min. Rhythm is regular. QRS Shelburn is Normal. SC interval is normal. QRS wolfgang interval is normal. QT interval is normal. No Q waves. T waves are Normal. Clinical impression: NSR w/ Non-specific ST/T Changes and No evidence of ischemia. Interpreted by me. Reviewed by me. Administered Medications: 20:35 Drug: Aspirin Chewable Tablet 324 mg Route: PO; lg3 20:35 Follow up: Response: No adverse reaction lg3 20:35 Drug: Pepcid (famotidine) 20 mg Route: IVP; Site: right antecubital; lg3 20:35 Follow up: Response: No adverse reaction lg3 20:36 Drug: NS 0.9% 1000 ml Route: IV; Rate: 1 bolus; Site: right antecubital; lg3 21:59 Follow up: Response: No adverse reaction; IV Status: Completed infusion; IV Intake: lg3 1000ml 20:36 Drug: foLIC Acid 1 mg Route: IVPB; Site: right antecubital; lg3 21:59 Follow up: Response: No adverse reaction; IV Status: Completed infusion lg3 22:17 Not Given (Physician Discretion): Heparin (ME Drip) 12 units/kg/hr - (HEParin 60658 lg3 units, D5W 500 ml) IV at calculated rate Per protocol; Max initial rate 1000 units/hr Point of Care Testing: Blood Glucose: 21:26 Blood Glucose: 198 mg/dL; lg3 Ranges: Critical Glucose Levels:Adult <50 mg/dl or >400 mg/dl <40 mg/dl or >180 mg/dl Disposition Summary: 10/21/21 20:45 Hospitalization Ordered Hospitalization Status: Inpatient Admission wolfgang Provider: Rl Giang cha Condition: Fair wolfgang Problem: new wolfgang Symptoms: have improved wolfgang Bed/Room Type: Standard wolfgang Location: Telemetry/MedSurg (Inpatient)(10/22/21 14:15) dw Room Assignment: 428(10/22/21 14:15) dw Diagnosis - Paroxysmal atrial fibrillation wolfgang - Aphasia wolfgang - Type 2 diabetes mellitus with hyperglycemia wolfgang - Cerebral infarction, unspecified wolfgang Forms: - Medication Reconciliation Form wolfgang - SBAR form wolfgang NIH Stroke Scale - NIH Stroke Score Date: 10/21/2021 Time: 19:50 Total Score = 0 1a. Level of Consciousness (LOC) - 0(Alert) 1b. Level of Consciousness (LOC) (Month \T\ Age) - 0(Both) 1c. LOC Commands (Open \T\ Closes Eyes/Security System Analyst) - 0(Both) 2. Best Gaze (Lateral Gaze Paresis) - 0(Normal) 3. Visual Field Loss - 0(No visual loss) 4. Facial Palsy - 0(Normal) 5a. Left Arm: Motor (10-second hold) - 0(No drift) 5b. Right Arm: Motor (10-second hold) - 0(No drift) 6a. Left Leg: Motor (5-second hold - always test supine) - 0(No drift) 6b. Right Leg: Motor (5-second hold - always test supine) - 0(No drift) 7. Limb Ataxia (finger/nose \T\ heel/oreilly - test with eyes open) - 0(Absent) 8. Sensory Loss (pinprick arms/legs/face) - 0(Normal) 9. Best Language: Aphasia (description/naming/reading) - 0(No aphasia) 10. Dysarthria (speech clarity - read or repeat words) - 0(Normal) 11. Extinction and Inattention (visual/tactile/auditory/spatial/personal) - 0(No abnormality) Initials: lg3 Signatures: Dispatcher [employer] EDMS Day Garcia, RN RN Gary Lugo MD MD cha Mickail, Joel, PA PA jmm Garcia, Cindy, RN RN Xenia Banegas, RN RN lg3 Tiffanie Crain, RN RN ld1 Corrections: (The following items were deleted from the chart) 19:42 19:42 PSHx: Cholecystectomy; ld1 ld1 19:42 19:42 PSHx: bypass; ld1 ld1 20:56 20:45 Telemetry/MedSurg (Inpatient) [facility] cg 20:56 20:45 [facility] cg 22:57 22:34 BASIC METABOLIC PANEL+C.LAB.BRZ ordered. EDMS EDMS 22:57 22:34 CBC+H.LAB.BRZ ordered. EDMS EDMS 22:57 22:34 HEPATIC FUNCTION+C.LAB.BRZ ordered. EDMS EDMS 22:57 22:34 MAGNESIUM+C.LAB.BRZ ordered. EDMS EDMS 22:57 22:34 PROBNP+C.LAB.BRZ ordered. EDMS EDMS 22:57 22:34 PROTIME (+INR)+COAG.LAB.BRZ ordered. EDMS EDMS 22:57 22:34 Troponin High Sensitivity+C.LAB.BRZ ordered. EDMS EDMS 22:57 22:34 WESTERGREN SEDRATE+H.LAB.BRZ ordered. EDMS EDMS 22:57 22:34 C-REACTIVE PROTEIN+C.LAB.BRZ ordered. EDMS EDMS 10/22 14:15 10/21 20:56 [facility] ER [facility] dw 10/22 14:15 10/21 20:56 [facility]
--- NOTE | 2021-10-21 20:46 | ER ---
Nurse's Notes [facility] Name: Mike Peña Age: 86 yrs Sex: Male : 1935 Arrival Date: 10/21/2021 Time: 19:29 Bed 20 Private MD: Diagnosis: Paroxysmal atrial fibrillation;Aphasia;Type 2 diabetes mellitus with hyperglycemia;Cerebral infarction, unspecified Presentation: 10/21 19:39 Chief complaint: Patient states: slurred speech since yesterday evening at 1900. Pt ld1 reports noticing slurred speech at that time. Reports "It seems to be getting better, before I got here it was much worse.". Coronavirus screen: At this time, the client does not indicate any symptoms associated with coronavirus-19. Ebola Screen: No symptoms or risks identified at this time. An acute neurological deficit is present. The charge nurse has been notified. Initial Sepsis Screen: Does the patient meet any 2 criteria? No. Patient's initial sepsis screen is negative. Does the patient have a suspected source of infection? No. Patient's initial sepsis screen is negative. Risk Assessment: Do you want to hurt yourself or someone else? Patient reports no desire to harm self or others. Onset of symptoms was October 21, 2021. 19:39 Method Of Arrival: Ambulatory ld1 19:39 Acuity: BEKAH 2 ld1 Triage Assessment: 19:42 The onset of the patients symptoms was more than six hours ago. General: Appears in no ld1 apparent distress. comfortable, Behavior is calm, cooperative, appropriate for age. Pain: Denies pain. EENT: No signs and/or symptoms were reported regarding the EENT system. Neuro: Level of Consciousness is awake, alert, obeys commands, Oriented to person, place, time, situation, Public Relations Senior Associate are equal bilaterally Moves all extremities. Speech is slurred, Reports slight expressive aphasia noted.. Cardiovascular: Capillary refill < 3 seconds Patient's skin is warm and dry. Respiratory: Airway is patent Respiratory effort is even, unlabored. GI: Abdomen is flat, non-distended. : No signs and/or symptoms were reported regarding the genitourinary system. Derm: No signs and/or symptoms reported regarding the dermatologic system. Musculoskeletal: No signs and/or symptoms reported regarding the musculoskeletal system. 22:34 The onset of the patients symptoms was October 20, 2021 at 19:00. 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 - Social history:: Smoking status: Patient denies any tobacco usage or history of. Patient/guardian denies using alcohol. - Family history:: not pertinent. Screenin:51 Abuse screen: Denies threats or abuse. Denies injuries from another. Nutritional lg3 screening: No deficits noted. Tuberculosis screening: No symptoms or risk factors identified. Fall Risk None identified. Assessment: 19:50 VAN Scoring: Arm Drift: Patients demonstrates NO arm weakness. Patient is VAN Negative. lg3 Visual Disturbance: No visual disturbance noted. Aphasia: No aphasia noted. Neglect: No neglect noted. TNKase (Tenecteplase) Screening: Indications:. 19:53 General: Appears in no apparent distress. comfortable, Behavior is calm, cooperative. lg3 Pain: Denies pain. Neuro: No deficits noted. Level of Consciousness is awake, alert, obeys commands, Oriented to person, place, time, situation, Public Relations Senior Associate are equal bilaterally Moves all extremities. Speech is slurred, Facial symmetry appears normal, Pupils are PERRLA, Intact. Cardiovascular: No deficits noted. Denies chest pain, shortness of breath, Capillary refill < 3 seconds Clubbing of nail beds is absent JVD is absent Patient's skin is warm and dry. Respiratory: No deficits noted. Airway is patent Trachea midline Respiratory effort is even, unlabored, Respiratory pattern is regular, symmetrical, Breath sounds are clear bilaterally. GI: No deficits noted. No signs and/or symptoms were reported involving the gastrointestinal system. Abdomen is flat, non-distended, Bowel sounds present X 4 quads. Abd is soft and non tender X 4 quads. : No deficits noted. No signs and/or symptoms were reported regarding the genitourinary system. EENT: No deficits noted. No signs and/or symptoms were reported regarding the EENT system. Derm: No deficits noted. No signs and/or symptoms reported regarding the dermatologic system. Skin is intact, is thin, Skin is dry, Skin is normal, Skin temperature is warm. Musculoskeletal: No deficits noted. No signs and/or symptoms reported regarding the musculoskeletal system. Circulation, motion, and sensation intact. Range of motion: intact in all extremities. 21:26 Patient has been NPO before screening. The patient is alert, and able to follow lg3 commands. The patient does not exhibit slurred or garbled speech. The patient is not exhibiting difficulty speaking. The patient does not exhibit difficulty understanding words. The patient is able to swallow own secretions with no drooling or need for suction. Patient tolerated one teaspoon of water. No drooling, immediate coughing, gurgling, or clearing of the throat was noted. The patient passed the bedside swallow screening. Oral medications may be given as ordered. Contact Physician for further diet orders. Provider notified of bedside swallow screening results: Gary Ruano MD. Vital Signs: 19:39 Weight 85 kg; ld1 19:53 BP 113 / 67; Pulse 105; Resp 24 S; Temp 98.6(O); Pulse Ox 97% on R/A; Pain 0/10; lg3 NIH Stroke Scale Scores: 19:50 NIHSS Score: 0 lg3 ED Course: 19:29 Patient arrived in ED. jj6 19:29 Gary Ruano MD is Attending Physician. wolfgang 19:42 Triage completed. ld1 19:42 Arm band placed on right wrist. ld1 19:49 Xenia Rendon, RN is Primary Nurse. lg3 19:51 Patient has correct armband on for positive identification. Placed in gown. Bed in low lg3 position. Call light in reach. Side rails up X2. Client placed on continuous cardiac and pulse oximetry monitoring. NIBP monitoring applied. groundwater monitoring technician on. Door closed. Noise minimized. Warm blanket given. Family accompanied patient. 19:51 Inserted saline lock: 20 gauge in left. lg3 19:52 Inserted saline lock: 18 gauge in right antecubital area, using aseptic technique. lg3 Blood collected. 20:44 Rl Giang is Hospitalizing Provider. wolfgang 21:43 Head angio In Process Unspecified. EDMS 21:43 Neck Angio In Process Unspecified. EDMS 22:34 No provider procedures requiring assistance completed. Patient admitted, IV remains in lg3 place. intact, No redness/swelling at site. Administered Medications: 20:35 Drug: Aspirin Chewable Tablet 324 mg Route: PO; lg3 20:35 Follow up: Response: No adverse reaction lg3 20:35 Drug: Pepcid (famotidine) 20 mg Route: IVP; Site: right antecubital; lg3 20:35 Follow up: Response: No adverse reaction lg3 20:36 Drug: NS 0.9% 1000 ml Route: IV; Rate: 1 bolus; Site: right antecubital; lg3 21:59 Follow up: Response: No adverse reaction; IV Status: Completed infusion; IV Intake: lg3 1000ml 20:36 Drug: foLIC Acid 1 mg Route: IVPB; Site: right antecubital; lg3 21:59 Follow up: Response: No adverse reaction; IV Status: Completed infusion lg3 22:17 Not Given (Physician Discretion): Heparin (VA Drip) 12 units/kg/hr - (HEParin 49337 lg3 units, D5W 500 ml) IV at calculated rate Per protocol; Max initial rate 1000 units/hr Medication: 22:34 VIS not applicable for this client. lg3 Point of Care Testing: Blood Glucose: 21:26 Blood Glucose: 198 mg/dL; lg3 Ranges: Intake: 21:59 IV: 1000ml; Total: 1000ml. lg3 Outcome: 20:45 Decision to Hospitalize by Provider. wolfgang 22:34 Admitted to ER Hold. Please see [facility] for further documentation. lg3 22:34 Condition: stable 22:34 Instructed on the need for admit, Demonstrated understanding of instructions. 10/22 15:27 Patient left the ED. jh6 NIH Stroke Scale - NIH Stroke Score Date: 10/21/2021 Time: 19:50 Total Score = 0 1a. Level of Consciousness (LOC) - 0(Alert) 1b. Level of Consciousness (LOC) (Month \\T\\ Age) - 0(Both) 1c. LOC Commands (Open \\T\\ Closes Eyes/Botany Laboratory Assistant) - 0(Both) 2. Best Gaze (Lateral Gaze Paresis) - 0(Normal) 3. Visual Field Loss - 0(No visual loss) 4. Facial Palsy - 0(Normal) 5a. Left Arm: Motor (10-second hold) - 0(No drift) 5b. Right Arm: Motor (10-second hold) - 0(No drift) 6a. Left Leg: Motor (5-second hold - always test supine) - 0(No drift) 6b. Right Leg: Motor (5-second hold - always test supine) - 0(No drift) 7. Limb Ataxia (finger/nose \\T\\ heel/[place]illy - test with eyes open) - 0(Absent) 8. Sensory Loss (pinprick arms/legs/face) - 0(Normal) 9. Best Language: Aphasia (description/naming/reading) - 0(No aphasia) 10. Dysarthria (speech clarity - read or repeat words) - 0(Normal) 11. Extinction and Inattention (visual/tactile/auditory/spatial/personal) - 0(No abnormality) Initials: lg3 Signatures: Dispatcher [employer] EDMS Gary Ruano MD MD cha Gibson, Lacie, RN RN lg3 Tiffanie Crain RN RN ld1 Ericka Bazan jj6 Ericka Pablo RN RN jh6 Corrections: (The following items were deleted from the chart) 10/21 19:42 19:42 PSHx: Cholecystectomy; ld1 ld1 19:42 19:42 PSHx: bypass; ld1 ld1 20:16 19:42 Neuro: Level of Consciousness is awake, alert, obeys commands, Oriented lg3 to person, place, time, situation, Public Relations Senior Associate are equal bilaterally Moves all extremities. Speech is slurred, ld1
[2021-10-21 20:56] LABS: Bilirubin Direct < 0.1 mg/dL (0-0.2)
[2021-10-21] MEDS ORDERED: HEPARIN/D5W 25,000 UNIT/500 ML BAG IV ONE (21:27)
[2021-10-21 21:35] LABS: SARS-CoV-2 Antigen Rapid Res Negative (Negative)
--- NOTE | 2021-10-21 21:50 | RAD REPORT ---
EXAM DESCRIPTION: CT - Head angio - 10/21/2021 9:41 pm CLINICAL HISTORY: stroke suspect COMPARISON: Ct Stroke Brain Wo Cont dated 10/21/2021; Head Brain Wo Cont dated 04/12/2020 TECHNIQUE: CT angiography of the head was performed with MIPs. All CT scans are performed using dose optimization technique as appropriate and may include automated exposure control or mA/KV adjustment according to patient size. FINDINGS: Anterior circulation: No aneurysm or large vessel occlusion. No hemodynamically significant stenosis. No arteriovenous malf ormation identified. Posterior circulation: No aneurysm or large vessel occlusion. No hemodynamically significant stenosis. No arteriovenous malf ormation identified. IMPRESSION: No significant flow abnormality is detected.
--- NOTE | 2021-10-21 21:53 | RAD REPORT ---
EXAM DESCRIPTION: CT - Neck Angio - 10/21/2021 9:42 pm CLINICAL HISTORY: stroke suspect COMPARISON: CT HEAD CSPINE MPR WO CONTRAST dated 12/06/2012; SOFT TISSUE NECK W CONTRAST dated 013 TECHNIQUE: CT angiography of the neck vessels was performed with MIPs. All CT scans are performed using dose optimization technique as appropriate and may include automated exposure control or mA/KV adjustment according to patient size. FINDINGS: A left aortic arch is identified with normal three vessel configuration of the great vesse ls. No significant flow abnormality is seen of the common carotid bilaterally. Hard and soft plaque is pr esent at both carotid bifurcations. No significant stenosis is identified involving the cervical segments of both internal carotid arteri es. Normal flow is seen within both vertebral arteries. Scarring at the lung apices may be from prior radiation. ACDF at C6-7. IMPRESSION: No significant flow abnormality of the neck vessels is identified.
[2021-10-21 21:58] LABS: Urine Blood Negative (Negative); Urine Glucose Negative (Negative); Urine Protein Negative (Negative); Urine Specific Gravity 1.025 (1.005-1.030)
--- NOTE | 2021-10-21 22:41 | P.HP ---
Certification for Inpatient Patient admitted to: Inpatient With expected LOS: <2 Midnights Patient will require the following post-hospital care: None Practitioner: I am a practitioner with admitting privileges, knowledge of patient current condition, hospital course, and medical plan of care. Services: Services provided to patient in accordance with Admission requirements found in Title 42 Section 412.3 of the Code of Federal Regulations Patient History Date of Service: 10/21/21 Reason for admission: CVA R/O History of Present Illness: Patient is an 86-year-old male with history of hypothyroidism, NIDDM2, hyperlipidemia, afib, and CAD s/p CABG who presented to the ED with complaints of slurred speech. Patient reports that he started experiencing slurred speech yesterday and was also too weak to do much. He ignored it and it improved. He reports that today, the aphasia returned so he called his son who brought him to the ED to be evaluated. Brain CT, head/neck CT angio negative. Patient was recently admitted and treated here for GIB (discharged 5 days ago). His hemoglobin remained stable and he was discharged with antibiotics and protonix. Hemoglobin remains stable today. He denies any rectal bleeding/bloody bowel movements since discharge. He was given pepcid, folic acid, fluids, and 324 aspirin in ED. Neurologic exam is benign during my assessment. He states he is no longer having any difficulty speaking. Denies history of CVA. He is admitted for further management of CVA rule out. Allergies No Known Drug Allergies Allergy (Verified 10/15/21 21:33) Unknown No Known Allergies Allergy (Uncoded 06/18/17 11:31) Unknown Home medications list reviewed: Yes Home Medications: Atorvastatin Calcium [Lipitor*] 40 mg PO DAILY 11/19/12 Duloxetine HCl [Cymbalta] 60 mg PO DAILY 11/19/12 Levothyroxine [Synthroid*] 100 mcg PO [id number] 11/19/12 Pregabalin [Lyrica*] 75 mg PO QID 11/19/12 Sitagliptin Phos/Metformin HCl [Janumet 50-1,000 mg Tablet] 1 each PO BID 11/19/12 Tamsulosin [Flomax*] 0.4 mg PO DAILY 11/19/12 Valacyclovir [Valtrex*] 500 mg PO BID 11/19/12 Magnesium Oxide [Mag 0X*] 400 mg PO BID #60 tab 03/03/14 Fluticasone Furoate [Veramyst] 1 spr IN DAILY 04/14/17 Midodrine HCl 10 mg PO TID 04/14/17 Amox/Clavulanate [Augmentin 875-125 Tab] 1 tab PO BID 20 Days #10 tab 10/16/21 Metoprolol Tartrate [Lopressor*] 12.5 mg PO BID 30 Days #60 tab 10/16/21 Pantoprazole Sodium [Protonix] 40 mg PO BID 30 Days #60 tab 10/16/21 - Past Medical/Surgical History Diabetic: Yes -: NIDDM -: Diverticulitus -: Hyperlipidemia -: Neuropathy -: Shingles -: Ischemic Heart Disease -: tounge cancer stage four -: hypothyroidism -: triple bypass -: cholecystectomy -: c6-c7 neck surgery -: r inguinal hernia -: l sided hernia -: nodule removal from left side of neck Psychosocial/ Personal History: Patient is . He lives at home alone. - Family History Family History: Reviewed- Non-Contributory - Social History Smoking Status: Former smoker Alcohol use: No CD- Drugs: No Caffeine use: No Place of Residence: Home Review of Systems Neurological: Weakness, Change in Speech Physical Examination - Physical Exam General: Alert, In no apparent distress HEENT: Atraumatic, PERRLA, EOMI, Sclerae nonicteric Neck: Supple, 2+ carotid pulse no bruit, No LAD, Without JVD or thyroid abnormality Respiratory: Clear to auscultation bilaterally, Normal air movement Cardiovascular: Regular rate/rhythm, Normal S1 S2 Gastrointestinal: Normal bowel sounds, No tenderness Musculoskeletal: No tenderness Integumentary: No rashes Neurological: Normal gait, Normal speech, Normal strength at 5/5 x4 extr, Normal tone, Sensation intact, Normal affect - Studies Laboratory Data (last 24 hrs) 10/21/21 19:45: PT 10.9, INR 0.99 10/21/21 19:45: WBC 8.80 D, Hgb 12.0 L, Hct 35.1 L, Plt Count 278 D 10/21/21 19:45: Sodium 140, Potassium 4.3, BUN 13, Creatinine 1.23, Glucose 215 H, Magnesium 2.0, Total Bilirubin 0.4, AST 12 L, ALT 19, Alkaline Phosphatase 72 Assessment and Plan - Problems (Diagnosis) (1) TIA (transient ischemic attack) Current Visit: Yes Status: Acute (2) Afib Current Visit: Yes Status: Chronic Qualifiers: Atrial fibrillation type: paroxysmal Qualified Code(s): I48.0 - Paroxysmal atrial fibrillation (3) Type 2 diabetes mellitus Current Visit: Yes Status: Chronic Qualifiers: Diabetes mellitus 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 Patient has mild difficultly swallowing at baseline given history of malignancy. -Hold off on anticoagulation given recent GIB and negative imaging -Lipid panel, A1C, thyroid panel ordered for morning -Monitor and replete electrolytes per protocol -Reconcile and continue home medications -SCDs for VTE ppx -Full code Discharge Plan: Home Plan to discharge in: 48 Hours - Advance Directives Does patient have a Living Will: No Does patient have a Durable POA for Healthcare: No - Code Status/Comfort Care Code Status Assessed: Yes (Full) Critical Care: No Time Spent Managing Pts Care (In Minutes): 50
[2021-10-21] MEDS: NA CHLORIDE 0.9% 1,000 ML IV SCH (23:09)
[2021-10-21] MEDS ORDERED: ACETAMINOPHEN 500 MG TAB PO PRN (23:09)
[2021-10-21] MEDS ORDERED: ONDANSETRON 4 MG/2 ML VIAL IV PRN (23:09)
[2021-10-22] MEDS ORDERED: NA CHLORIDE 0.9% 1,000 ML ONE (00:02)
[2021-10-22 05:29] LABS: Absolute Lymphocytes (CBC) 1.2 K/uL (0.7-4.9); Hematocrit 32.3 % (39.6-49.0); Lymphocytes % 18.4 % (15.3-44.8); MCV 97.3 fL (80-100); MPV 7.4 fL (7.6-11.3); RBC Red Blood Cell Count 3.32 M/uL (4.33-5.43)
[2021-10-22 05:50] LABS: Phosphorus 3.4 mg/dL (2.5-4.9); Potassium 3.9 mmol/L (3.5-5.1); T4,Total 9.5 ug/dL (4.5-12.1); Thyroid Stimulating Hormone 1.52 uIU/mL (0.360-3.740)
--- NOTE | 2021-10-22 07:25 | RAD REPORT ---
EXAM DESCRIPTION: US - CP - 10/22/2021 2:28 am CLINICAL HISTORY: CVA COMPARISON: Neck Angio dated 10/21/2021 TECHNIQUE: Real-time sonographic evaluation of both carotid systems was performed. Doppler interroga tion was performed with waveform tracing bilaterally. FINDINGS: Normal high resistance waveforms are noted in both external carotid arteries. The common c arotid arteries and internal carotid arteries show normal low resistance waveforms. Soft plaque is present at both carotid bulbs. Peak systolic and end diastolic velocity values and the ICA/CCA ratios are in the non-hemodynamically significant range. Antegrade flow seen in both vertebral arteries. IMPRESSION: Soft plaque at both carotid bulbs. No evidence of a hemodynamically significant stenosis.
[2021-10-22] MEDS: INSULIN -REGULAR HUMAN 50 UNIT/0.5 ML ML SQ SCH ×4 (07:30→20:09)
[2021-10-22] MEDS ORDERED: PNEUMOCOCCAL VACCINE 0.5 ML IMVAC ONE (08:00)
[2021-10-22] MEDS ORDERED: KCL 20 MEQ/100 mL IVPB 20 MEQ/100 ML BAG IV SCH (08:00)
[2021-10-22] MEDS: FOLIC ACID 1 MG TABLET PO SCH (09:00)
[2021-10-22] MEDS: ASPIRIN EC 81 MG TAB PO SCH (09:00)
[2021-10-22] MEDS ORDERED: MIDAZOLAM HCL 2 MG/2 ML INJ IV ONE (10:39)
[2021-10-22] MEDS ORDERED: FOLIC ACID 1 MG TABLET ONE (10:45)
[2021-10-22] MEDS ORDERED: ASPIRIN EC 81 MG TAB PO ONE (10:45)
--- NOTE | 2021-10-22 12:24 | RAD REPORT ---
EXAM DESCRIPTION: MRI - MRA Head Wo Cont - 10/22/2021 12:14 pm CLINICAL HISTORY: aphasia CVA COMPARISON: Brain Wo Cont dated 08/29/2015 FINDINGS: 3D noncontrast [id number] MR angiography of the [place] was performed. No aneurysm, flow-limiting stenosis or vascular malformation is seen. Forward flow seen in codominant vertebral arteries. The visualized dural venous sinuses appear patent. IMPRESSION: No significant flow abnormality of the [place] is identified.
[2021-10-22] MEDS: NA CHLORIDE 0.9% 1,000 ML IV SCH ×2 (12:29→18:25)
--- NOTE | 2021-10-22 12:37 | RAD REPORT ---
EXAM DESCRIPTION: MRI - Brain W/Wo Cont - 10/22/2021 12:14 pm CLINICAL HISTORY: aphasia Headache, drowsiness, CVA COMPARISON: MRA Head Wo Cont dated 10/22/2021; MRA Neck W/Wo Cont dated 10/22/2021 TECHNIQUE: Multi-sequence, multiplanar MR imaging of the brain was performed with contrast. FINDINGS: No intracranial hemorrhage, hydrocephalus, or extra-axial fluid collection.Moderate conflu ent T2/FLAIR hyperintensity in the periventricular and deep white matter is present compatible with c hronic microvascular ischemic changes. No edema or shift of midline structures. No intracranial mass. 17 x 10 mm oblong acute CVA is present along the right aspect of the [place].. The midline structures are normally formed. Mild fluid is present in both mastoid air cells. Post-contrast images show no abnormal enhancement to suggest tumor or infection. IMPRESSION: 17 x 10 mm acute CVA right aspect of the [place].
--- NOTE | 2021-10-22 12:48 | EKG ---
Test Date: 2021-10-21 Test Time: 20:53:30 Computer Scientist: ANTONIO MEASUREMENT RESULTS: Intervals: Rate: 96 NC: 184 QRSD: 132 QT: 388 QTc: 490 [place]: P: 66 NC: 184 QRS: -83 T: 44 INTERPRETIVE STATEMENTS: Sinus rhythm with premature atrial complexes Right bundle branch block Left anterior fascicular block Bifascicular block Inferior infarct, age undetermined Abnormal ECG Compared to ECG 10/21/2021 19:55:11 Atrial premature complex(es) now present Sinus tachycardia no longer present Fusion complex(es) no longer present First degree AV block no longer present Bifascicular block still present Myocardial infarct finding still present Electronically Signed On 10-22-21 12:47:11 CDT by Jordan Brandon
--- NOTE | 2021-10-22 12:48 | EKG ---
Test Date: 2021-10-21 Test Time: 19:55:11 Damper Maker: MEASUREMENT RESULTS: Intervals: Rate: 104 NH: 248 QRSD: 138 QT: 394 QTc: 518 [place]: P: NH: 248 QRS: -76 T: 36 INTERPRETIVE STATEMENTS: Sinus tachycardia with 1st degree AV block with fusion complexes Right bundle branch block Left anterior fascicular block Bifascicular block Inferior infarct, age undetermined Abnormal ECG Compared to ECG 10/15/2021 04:52:24 Fusion complex(es) now present First degree AV block now present Myocardial infarct finding now present Bifascicular block still present Electronically Signed On 10-22-21 12:47:45 CDT by Jordan Brandon
--- NOTE | 2021-10-22 12:51 | RAD REPORT ---
EXAM DESCRIPTION: MRI - MRA Neck W/Wo Cont - 10/22/2021 12:15 pm CLINICAL HISTORY: aphasia Headache, drowsiness, CVA COMPARISON: No comparisons FINDINGS: Contrast enhance 2D [id number] MR angiography of the neck vessels was performed. A left aortic arch is present. Subclavian and common carotid arteries are widely patent. No significant internal carotid artery sten osis identified. Vertebral arteries are codominant. IMPRESSION: No significant flow abnormality seen of the neck vessels.
[2021-10-22] MEDS: METOPROLOL TAR 25 MG TAB PO SCH ×2 (15:00→21:09)
[2021-10-22] MEDS ORDERED: METOPROLOL TAR 25 MG TAB ONE (15:10)
--- NOTE | 2021-10-22 15:56 | P.PN ---
Subjective Date of Service: 10/22/21 Chief Complaint: CVA R/O Son noted patient slurred speech has resolved. Patient is awake and alert and currently has no complaint. He is currently in rapid A. fib. Physical Examination - Vital Signs Temperature: 97.7 F Blood Pressure: 141/90 Pulse: 140 Respirations: 17 Pulse Ox (%): 98 - Studies Laboratory Data (last 24 hrs) 10/21/21 19:45: PT 10.9, INR 0.99 10/21/21 19:45: WBC 8.80 D, Hgb 12.0 L, Hct 35.1 L, Plt Count 278 D 10/21/21 19:45: Sodium 140, Potassium 4.3, BUN 13, Creatinine 1.23, Glucose 215 H, Magnesium 2.0, Total Bilirubin 0.4, AST 12 L, ALT 19, Alkaline Phosphatase 72 10/21/21 19:32: PT Cancelled, INR Cancelled 10/21/21 19:32: WBC Cancelled, Hgb Cancelled, Hct Cancelled, Plt Count Cancelled 10/21/21 19:32: Sodium Cancelled, Potassium Cancelled, BUN Cancelled, Creatinine Cancelled, Glucose Cancelled, Magnesium Cancelled, Total Bilirubin Cancelled, AST Cancelled, ALT Cancelled, Alkaline Phosphatase Cancelled Assessment And Plan - Current Problems (Diagnosis) (1) Acute CVA (cerebrovascular accident) Current Visit: Yes Status: Acute (2) History of gastrointestinal hemorrhage Current Visit: Yes Status: Acute (3) Rapid atrial fibrillation Current Visit: Yes Status: Acute (4) Ischemic heart disease Current Visit: Yes Status: Chronic (5) Type 2 diabetes mellitus Current Visit: Yes Status: Chronic Qualifiers: 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 Respiratory: Clear to auscultation bilaterally, Normal air movement Cardiovascular: Regular rate/rhythm, Normal S1 S2 Gastrointestinal: Normal bowel sounds, No tenderness Musculoskeletal: No tenderness Integumentary: No rashes Neurological: Normal speech, Normal strength at 5/5 x4 extr, Normal tone, Sensation intact, Normal affect. Plan: MRI of the brain shows acute CVA in the right deepak. Patient with rapid atrial fibrillation. Controlled rapid rate with oral metoprolol. Patient is high risk for subsequent CVA given history of A. fib and stroke. Cannot anticoagulate due to recent GI bleed. Aspirin, Plavix and Lipitor. DVT prophylaxis with Lovenox. He may need watchman's procedure. He will follow-up with cardiology for evaluation. No dysphagia, patient is tolerating solid diet. He ambulated without assistance during physical therapy. Disposition: Control heart rate, pending echocardiogram. Possible discharge in a.m. to home.
[2021-10-22] MEDS: PREGABALIN 75 MG CAP PO SCH ×2 (16:51→20:08)
[2021-10-22] MEDS: ATORVASTATIN 40 MG TAB PO SCH (20:08)
[2021-10-22] MEDS ORDERED: METOPROLOL TAR 25 MG TAB PO SCH (21:00)
[2021-10-23] MEDS: NA CHLORIDE 0.9% 1,000 ML IV SCH ×3 (01:49→16:44)
[2021-10-23 03:47] LABS: Absolute Lymphocytes (CBC) 1.3 K/uL (0.7-4.9); Hematocrit 32.2 % (39.6-49.0); Lymphocytes % 12.4 % (15.3-44.8); MCV 96.7 fL (80-100); MPV 7.9 fL (7.6-11.3); RBC Red Blood Cell Count 3.33 M/uL (4.33-5.43)
[2021-10-23 04:02] LABS: Potassium 3.9 mmol/L (3.5-5.1)
[2021-10-23] MEDS: INSULIN -REGULAR HUMAN 50 UNIT/0.5 ML ML SQ SCH ×4 (07:30→21:00)
--- NOTE | 2021-10-23 08:52 | ECHO ---
HEIGHT: 6 ft 1 in WEIGHT: 187 lb 6.4 oz DATE OF STUDY: 10/22/[address]: Jayleen Mensah 2-DIMENSIONAL: YES M.MODE: YES DOPPLER: YES COLOR FLOW: YES TDS: NO PORTABLE: YES DEFINITY: NO BUBBLE STUDY: NO DIAGNOSIS: STROKE CARDIAC HISTORY: CATHERIZATION: YES SURGERY: YES PROSTHETIC VALVE: NO PACEMAKER: NO MEASUREMENTS (cm) DIASTOLIC (NORMALS) SYSTOLIC (NORMALS) IVSd 1.3 (0.6-1.2) LA Diam 3.7 (1.9-4.0) LVEF 52% LVIDd 4.8 (3.5-5.7) LVIDs 3.5 (2.0-3.5) %FS 27% LVPWd 1.3 (0.6-1.2) Ao Diam 2.7 (2.0-3.7) 2 DIMENSIONAL ASSESSMENT: RIGHT ATRIUM: NORMAL LEFT ATRIUM: NORMAL RIGHT VENTRICLE: NORMAL LEFT VENTRICLE: NORMAL TRICUSPID VALVE: MODERATE TRICUSPID REGURGITATION MITRAL VALVE: MODERATE MITRAL REGURGITATION PULMONIC VALVE: NORMAL AORTIC VALVE: CALCIFIED AORTIC VALVE, NO AORTIC STENOSIS PERICARDIAL EFFUSION: NONE AORTIC ROOT: NORMAL LEFT VENTRICULAR WALL MOTION: NORMAL. DOPPLER/COLOR FLOW: SEE BELOW. COMMENTS: LOW NORMAL LEFT VENTRICULAR EJECTION FRACTION 50-55%. MODERATE MITRAL REGURGITATION. MODERATE TRICUSPID REGURGITATION. AORTIC SCLEROSIS, NO AORTIC STENOSIS. TECHNOLOGIST: GLO GUERRA
[2021-10-23] MEDS ORDERED: POTASSIUM CL SA 10 MEQ TAB PO ONE (09:00)
[2021-10-23] MEDS: METOPROLOL TAR 25 MG TAB PO SCH ×2 (09:49→20:15)
[2021-10-23] MEDS: ASPIRIN EC 81 MG TAB PO SCH (09:50)
[2021-10-23] MEDS: CLOPIDOGREL 75 MG TABLET PO SCH (09:50)
[2021-10-23] MEDS: TAMSULOSIN 0.4 MG SR CAP PO SCH (09:50)
[2021-10-23] MEDS: FOLIC ACID 1 MG TABLET PO SCH (09:51)
[2021-10-23] MEDS: PREGABALIN 75 MG CAP PO SCH ×4 (09:51→20:15)
--- NOTE | 2021-10-23 13:39 | RAD REPORT ---
EXAM DESCRIPTION: RAD - Barium Swallow Modified - 10/23/2021 1:27 pm CLINICAL HISTORY: coughing with thin liquids/hx of aphagia COMPARISON: None. TECHNIQUE: The patient was given liquid, semi-solid and solid forms of barium. Lateral view fluorosc opic imaging was performed in conjunction with speech pathology service. FINDINGS: Cineloop acquisitions: 25 Fluoro time: 5:54 Laryngeal penetration not cleared with thin,nectar ,honey,puree and dry solid. Aspiration no cough wi th nectar. Pharyngeal residue vallecular and pyriform mild to severe with all consistancies; thin,nec tar,honey,puree,dry solid and pill in puree. Absent hyoid excursion,absent epiglottic deflection,mini mal laryngeal elevation. IMPRESSION: Modified barium swallow as summarized above and fully detailed on speech pathology repor nando
--- NOTE | 2021-10-23 15:24 | P.PN ---
Subjective Date of Service: 10/23/21 Chief Complaint: CVA R/O Slurred speech resolved. Patient remain in rapid A. fib. He has no new complaint. Physical Examination - Vital Signs Temperature: 97.2 F Blood Pressure: 129/63 Pulse: 110 Respirations: 20 Pulse Ox (%): 100 Assessment And Plan - Current Problems (Diagnosis) (1) Acute CVA (cerebrovascular accident) Current Visit: Yes Status: Acute (2) History of gastrointestinal hemorrhage Current Visit: Yes Status: Acute (3) Rapid atrial fibrillation Current Visit: Yes Status: Acute (4) Ischemic heart disease Current Visit: Yes Status: Chronic (5) Type 2 diabetes mellitus Current Visit: Yes Status: Chronic Qualifiers: Diabetes mellitus buttermaker continuous churn insulin use: without buttermaker continuous churn use Diabetes mellitus complication status: with hyperglycemia Qualified Code(s): E11.65 - Type 2 diabetes mellitus with hyperglycemia (6) History of diverticulosis Current Visit: No Status: Chronic - Plan Physical Exam General: Alert, In no apparent distress HEENT: PERRLA, EOMI, Sclerae nonicteric Neck: Supple, Without JVD. Respiratory: Clear to auscultation bilaterally, Normal air movement Cardiovascular: Regular rate/rhythm, Normal S1 S2 Gastrointestinal: Normal bowel sounds, No tenderness Musculoskeletal: No tenderness Integumentary: No rashes Neurological: Normal speech, Normal strength at 5/5 x4 extr, Normal tone, Sensation intact, Normal affect. Plan: MRI of the brain shows acute CVA in the right deepak. Patient ambulated without an assistive device. No need for further PT per therapist. Seen by speech and modified barium swallow done which showed significant dysphagia. 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 Speech therapy recommended n.p.o. and alternate form of feeding. Will consult GI for PEG tube. Patient in rapid atrial fibrillation. Is started on oral metoprolol 25 twice daily. Patient is high risk for subsequent CVA given history of A. fib and stroke but high risk for anticoagulation due to recent GI bleed. Continue aspirin, Plavix and Lipitor. DVT prophylaxis with Lovenox. He may need watchman's procedure. He will follow-up with cardiology for evaluation. Echocardiogram shows normal EF, no cardiac thrombus.
[2021-10-23] MEDS: ATORVASTATIN 40 MG TAB PO SCH (20:15)
[2021-10-24 04:06] LABS: Potassium 3.7 mmol/L (3.5-5.1)
[2021-10-24] MEDS: NA CHLORIDE 0.9% 1,000 ML IV SCH ×2 (04:30→17:43)
[2021-10-24] MEDS ORDERED: KCL 20 MEQ/100 mL IVPB 20 MEQ/100 ML BAG IV SCH (06:00)
[2021-10-24] MEDS: INSULIN -REGULAR HUMAN 50 UNIT/0.5 ML ML SQ SCH ×4 (07:30→21:00)
[2021-10-24] MEDS ORDERED: METOPROLOL TARTRATE 5 MG/5 ML INJ IV STA (08:56)
[2021-10-24] MEDS: PREGABALIN 75 MG CAP PO SCH ×5 (09:00→20:24)
[2021-10-24] MEDS: TAMSULOSIN 0.4 MG SR CAP PO SCH (09:00)
[2021-10-24] MEDS: ASPIRIN EC 81 MG TAB PO SCH (09:00)
[2021-10-24] MEDS: CLOPIDOGREL 75 MG TABLET PO SCH (09:00)
[2021-10-24] MEDS: METOPROLOL TAR 25 MG TAB PO SCH ×3 (09:00→20:44)
[2021-10-24] MEDS: FOLIC ACID 1 MG TABLET PO SCH (09:00)
[2021-10-24] MEDS: KCL 20 MEQ/100 mL IVPB 20 MEQ/100 ML BAG IV ONE ×2 (09:00→09:07)
[2021-10-24] MEDS ORDERED: CEFAZOLIN SODIUM 1 GM/VIAL ONE (13:41)
[2021-10-24] MEDS ORDERED: LIDOCAINE 1% MPF 5 ML VIAL ONE ×2 (14:02→14:49)
[2021-10-24] MEDS ORDERED: ETOMIDATE 20 MG/10 ML VIAL IV ONE (14:02)
[2021-10-24] MEDS ORDERED: propofoL 200 MG/20 ML VIAL IV ONE (14:02)
[2021-10-24] MEDS ORDERED: LIDOCAINE 1% MPF 5 ML VIAL IJ ONE (14:15)
--- NOTE | 2021-10-24 14:24 | P.PN ---
Subjective Date of Service: 10/24/21 Chief Complaint: CVA R/O Slurred speech resolved. Patient remain in rapid A. fib. Seen by speech, MBS done and patient noted to have severe dysphagia. Currently n.p.o. Physical Examination - Vital Signs Temperature: 97.8 F Blood Pressure: 110/57 Pulse: 110 Respirations: 16 Pulse Ox (%): 98 Assessment And Plan - Current Problems (Diagnosis) (1) Acute CVA (cerebrovascular accident) Current Visit: Yes Status: Acute (2) History of gastrointestinal hemorrhage Current Visit: Yes Status: Acute (3) Rapid atrial fibrillation Current Visit: Yes Status: Acute (4) Ischemic heart disease Current Visit: Yes Status: Chronic (5) Type 2 diabetes mellitus Current Visit: Yes Status: Chronic Qualifiers: Diabetes mellitus group home insulin use: without rail walker use Diabetes mellitus complication status: with hyperglycemia Qualified Code(s): E11.65 - Type 2 diabetes mellitus with hyperglycemia (6) History of diverticulosis Current Visit: No Status: Chronic - Plan Physical Exam General: Alert, In no apparent distress Neck: Supple, Without JVD. Respiratory: Clear to auscultation bilaterally, Normal air movement Cardiovascular: Regular rate/rhythm, Normal S1 S2 Gastrointestinal: Normal bowel sounds, No tenderness Musculoskeletal: No tenderness Integumentary: No rashes Neurological: Normal speech, Normal strength at 5/5 x4 extr, Normal tone, Sensation intact, Normal affect. Plan: MRI of the brain shows acute CVA in the right deepak. Patient ambulated without an assistive device. No need for further PT per therapist. Seen by speech and modified barium swallow done which showed significant dysphagia. 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 Speech therapy recommended n.p.o. and alternate form of feeding. General surgery Dr. Mills consulted. He is planning to place a PEG tube today. Patient in rapid atrial fibrillation. Currently n.p.o.. Metoprolol IV as needed for rapid atrial fibrillation Patient is high risk for subsequent CVA given history of A. fib and stroke but high risk for anticoagulation due to recent GI bleed. Continue aspirin, Plavix and Lipitor. Cardiology consulted. DVT prophylaxis with Lovenox. He may need watchman's procedure. Echocardiogram shows normal EF, no cardiac thrombus. Dietitian consult for tube feeding.
--- NOTE | 2021-10-24 14:40 | ENDO RPT ---
[address], [address] EGD WITH PEG PROCEDURE REPORT EXAM DATE: 10/24/2021 PATIENT NAME: Mike Peña MR #: [id number] BIRTHDATE: 1935 ATTENDING: Ha Mills DR STATUS: inpatient - [facility] NEWSPAPER WRITER: Cody Moulton and Matthew Teixeira RN INDICATIONS: The patient is a 86 yr old Male here for an EGD with PEG due to dysphagia, malignancy, and odynophagia PROCEDURE PERFORMED: EGD with biopsy for H. pylori EGD-PEG MEDICATIONS: Per Anesthesia. TOPICAL ANESTHETIC: none CONSENT: The patient understands the risks and benefits of the procedure and understands that these risks include, but are not limited to: sedation, allergic reaction, infection, perforation and/or bleeding. Alternative means of evaluation and treatment include, among others: physical exam, x-rays, and/or surgical intervention. The patient elects to proceed with this endoscopic procedure. DESCRIPTION OF PROCEDURE: During intra-op preparation period all mechanical medical equipment was checked for proper function. Hand hygiene and appropriate measures for infection prevention was taken. After the risks, benefits and alternatives of the procedure were thoroughly explained, Informed consent was verified, confirmed and timeout was successfully executed by the treatment team. The patient was anesthetized with topical anesthesia and the EG-[id number] ([id number]) endoscope was introduced through the mouth and advanced to the first portion of the duodenum. The instrument was slowly withdrawn as the mucosa was fully examined. Multiple ulcers were found in the bulb and descending duodenum. With standard forceps, a biopsy was obtained and sent to pathology. A biopsy for H. pylori was taken. Multiple erosions were found in the antrum. With standard forceps, a biopsy was obtained and sent to pathology. The stomach was then inflated with air, and by a combination of transillumination and manual palpation, the site for the gastrostomy tube placement was selected and marked on the anterior abdominal wall. The skin of the anterior abdomen was surgically prepped and draped with sterile towels. Utilizing strict sterile technique, the selected site was then anesthetized with 1% xylocaine by injection into the skin and subcutaneous tissue. A 1 cm incision was made through the skin and subcutaneous tissue, and the needle/cannula assembly was then passed through the abdominal wall and through the anterior wall of the stomach, maintaining visualization with the endoscope. A snare device previously placed through the instrument channel was then opened and placed around the cannula, the needle was removed, and the insertion wire was passed through the cannula and into the stomach lumen. The snare was then loosened from the cannula, and repositioned to snare the insertion wire. The snare was then pulled up to the endoscope distal tip, and the scope was then withdrawn bringing with it the snare and insertion wire. The insertion wire was then released from the snare, and then loop-attached to the PEG PULL gastrostomy tube. Using the pull technique, the G-tube was then pulled into place by traction on the insertion wire at the abdominal wall end. The G-tube insertion site was then cleansed once again, and the external bolster was placed over the tube to secure it to the abdominal wall. A sterile dressing was then applied, and the procedure terminated. The gastroscope was then slowly withdrawn and removed. ADVERSE EVENT: There were no complications. IMPRESSIONS: 1. Multiple ulcers were found in the bulb and descending duodenum 2. Multiple erosions were found in the antrum RECOMMENDATIONS: 1. acid suppression therapy 2. anti-reflux regimen 3. await biopsy results 4. avoid NSAIDS 5. begin feeding tomorrow 6. follow-up of helicobacter pylori status, treat if indicated 7. follow PEG suggestions REPEAT EXAM: Ha Mills DR eSigned: Ha Mills DR 10/24/2021 2:39 PM cc: CPT CODES: ICD9 CODES: PATIENT NAME: Mike Peña MR#: [id number]
[2021-10-24] MEDS ORDERED: HYDROCOD 2.5mg-ACETAMIN 108mg/5mL Soln PO PRN (15:02)
[2021-10-24] MEDS: GLUCERNA 1.5 CAL 1,000 ML BOT FT SCH ×2 (16:53→20:23)
[2021-10-24] MEDS: SOTALOL HCL 80 MG TAB PO SCH (16:53)
[2021-10-24] MEDS: METOPROLOL TARTRATE 5 MG/5 ML INJ IV PRN (18:10)
[2021-10-24] MEDS ORDERED: SODIUM CHLORIDE 0.9% 10ML INJ IV PRN (18:38)
[2021-10-24] MEDS: PANTOPRAZOLE 40 MG INJ IVP SCH (20:20)
[2021-10-24] MEDS: ATORVASTATIN 40 MG TAB PO SCH ×2 (20:21→20:44)
--- NOTE | 2021-10-24 23:16 | CON ---
Date of Consultation: 10/24/2021 Reason For Consultation: Acute CVA in the setting of AFib. History Of Present Illness: This -[id number]-clq male with history of hypothyroidism, diabetes, dyslipidemia, atrial fibrillation, coronary artery disease status post CABG came in with slurred spee ch. Patient was found to have acute CVA. The patient has atrial fibrillation and had been using met oprolol for rate control and heart rate has been running above 100. He failed a swallow evaluation a nd a PEG tube is planned to be done today. Past Medical History: As outlined above in the HPI. Medications: Refer to reconciliation sheet for detailed list. Allergies: NO KNOWN DRUG ALLERGIES. Family History: No premature coronary artery disease or cancer. Social History: Does not smoke or drink. Does not use drugs. Review of Systems: All systems reviewed are negative except as what is mentioned in HPI. Physical Examination: Vital Signs: Reviewed. Head and Neck: Pupils are equal and reactive to light. No JVD. No cervical adenopathy. Neck: Supple. Thyroid is not enlarged. Lungs: Clear to auscultation bilaterally. No rhonchi, rales, or crackles. No accessory muscle use. Heart: Irregularly irregular. No extra sounds. Abdomen: Soft, nontender. Bowel sounds positive. No organomegaly. No masses or hernia. No rigidi ty or rebound. Extremities: No clubbing or cyanosis. Intact pulses. Skin: No rash. Neurologic: Alert, awake, and oriented. Normal strength in all extremities. No focal deficits appre ciated. Lymph Nodes: No cervical or axillary lymphadenopathy. Investigations: MRI of the brain showed an acute CVA involving the right aspect of the deepak. Assessment And Recommendations: 1.Acute cerebrovascular accident in the setting of atrial fibrillation. Patient will need to be ant icoagulated. Please consult with Neurology before starting anticoagulation and Eliquis 5 mg twice a day is a reasonable regimen if Neurology has no reservation on starting it. 2.Atrial fibrillation, rate is not controlled. Add sotalol 80 mg twice a day. Monitor EKG for QTc interval and also this patient needs anticoagulation in the setting of an acute stroke, which is like ly due to atrial fibrillation. I will discuss this further with the primary care physician. /SARAH Voice ID: [id number] Report ID: [id number]
[2021-10-25] MEDS: METOPROLOL TARTRATE 5 MG/5 ML INJ IV PRN ×3 (05:02→16:49)
[2021-10-25] MEDS: SOTALOL HCL 80 MG TAB PO SCH ×2 (05:02→16:50)
[2021-10-25] MEDS: INSULIN -REGULAR HUMAN 50 UNIT/0.5 ML ML SQ SCH ×4 (07:30→21:00)
[2021-10-25] MEDS: GLUCERNA 1.5 CAL 1,000 ML BOT FT SCH ×3 (08:00→14:00)
[2021-10-25] MEDS ORDERED: MAGNESIUM SULFATE 1 gm IVPB 1 GM/100 ML BAG IV ONE (08:15)
[2021-10-25] MEDS: ASPIRIN EC 81 MG TAB PO SCH (09:00)
[2021-10-25] MEDS: CLOPIDOGREL 75 MG TABLET PO SCH (09:00)
[2021-10-25] MEDS: FOLIC ACID 1 MG TABLET PO SCH (09:00)
[2021-10-25] MEDS: TAMSULOSIN 0.4 MG SR CAP PO SCH (09:00)
[2021-10-25] MEDS: PREGABALIN 75 MG CAP PO SCH ×4 (09:00→22:00)
[2021-10-25] MEDS: METOPROLOL TAR 25 MG TAB PO SCH ×2 (09:00→22:00)
[2021-10-25] MEDS: NA CHLORIDE 0.9% 1,000 ML IV SCH ×2 (09:30→20:29)
[2021-10-25] MEDS: PANTOPRAZOLE 40 MG INJ IVP SCH ×2 (09:31→22:01)
[2021-10-25] MEDS ORDERED: DEXTROSE 10%-WATER 250 ML IV SCH (10:00)
--- NOTE | 2021-10-25 15:01 | PN ---
Date of Progress Note: 10/25/2021 Subjective: Seen by bedside. Clinically doing much better, status post PEG tube placement. The pat ient is fully functional. Alert, awake, oriented x3. No focal deficits and speech is normal, but calderon d difficulty with swallowing function. Had a temporary PEG tube placed. Denies having any chest chikis n. He has atrial fibrillation and heart rate is controlled at the present time. Review of Systems: No chest pain, shortness of breath, orthopnea, cough, nausea, vomiting, diarrhea. No abdominal pain. No dysuria, polyuria, or urinary urgency. No skin rash or headache. All other systems reviewed an d they were negative. Physical Examination: Vital Signs: Reviewed. Head and Neck: Pupils are equal, reactive to light. Intact eye movements. No JVD. No cervical lym phadenopathy. Neck is supple. Thyroid is not enlarged. Lungs: Clear to auscultation bilaterally. No rhonchi, wheezing, or crackles. No accessory muscle u se. Heart: Irregularly irregular. No extra sounds. Abdomen: Soft, nontender. Bowel sounds positive. No organomegaly. No masses or hernia. No rigidi ty or rebound. Extremities: No edema, clubbing, or cyanosis. Intact pulses. Skin: No rash. Neurologic: Alert, awake, oriented x3. No acute focal deficits appreciated. Lymph Nodes: No cervical or axillary lymphadenopathy. Investigations: Labs were reviewed. Assessment And Recommendations: 1.Acute cerebrovascular accident in the setting of atrial fibrillation. This patient needs anticoag ulation. Discussed with Dr. Giang yesterday and recommended Neurology involvement as the recent str kyree. There was a concern of hemorrhagic transformation, but at this point, I believe the benefit of anticoagulation is higher than the risks and I recommend to start Eliquis 5 mg twice a day. Please d iscuss this with Neurology as well. 2.Atrial fibrillation. Rate is controlled to start using the Betapace through the PEG tube and kenzie mmend Eliquis as outlined above. SR/MODL Voice ID: [id number] Report ID: [id number]
--- NOTE | 2021-10-25 15:53 | P.PN ---
Subjective Date of Service: 10/25/21 Chief Complaint: CVA R/O Patient denies any complaint today. PEG tube inserted yesterday. Heart rates is better today. Physical Examination - Vital Signs Temperature: 97.9 F Blood Pressure: 141/67 Pulse: 92 Respirations: 18 Pulse Ox (%): 96 Assessment And Plan - Current Problems (Diagnosis) (1) Acute CVA (cerebrovascular accident) Current Visit: Yes Status: Acute (2) History of gastrointestinal hemorrhage Current Visit: Yes Status: Acute (3) Rapid atrial fibrillation Current Visit: Yes Status: Acute (4) Ischemic heart disease Current Visit: Yes Status: Chronic (5) Type 2 diabetes mellitus Current Visit: Yes Status: Chronic Qualifiers: Diabetes mellitus alf insulin use: without alf use Diabetes mellitus complication status: with hyperglycemia Qualified Code(s): E11.65 - Type 2 diabetes mellitus with hyperglycemia (6) History of diverticulosis Current Visit: No Status: Chronic - Plan Physical Exam General: Alert, In no apparent distress Neck: Supple, Without JVD. Respiratory: Clear to auscultation bilaterally, Normal air movement Cardiovascular: Regular rate/rhythm, Normal S1 S2 Gastrointestinal: Normal bowel sounds, No tenderness Musculoskeletal: No tenderness Integumentary: No rashes Neurological: Normal speech, Normal strength at 5/5 x4 extr, Normal tone, Sensation intact, Normal affect. Plan: MRI of the brain shows acute CVA in the right deepak. Patient ambulated without an assistive device. No need for further PT per therapist. Seen by speech and modified barium swallow done which showed significant dysphagia. 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 Speech therapy recommended n.p.o. and alternate form of feeding. General surgery Dr. Mills consulted. Dr. Mills placed PEG tube yesterday. Patient noted to have multiple gastric ulcers. Biopsies taken for histology and to rule out Helicobacter infection. PEG tube feeding to start today. Resume oral medications today. Dr. Brandon started patient on sotalol. Metoprolol IV as needed for rapid atrial fibrillation Patient is high risk for subsequent CVA given history of A. fib and stroke but high risk for anticoagulation due to recent GI bleed. Dr. Brandon recommend anticoagulation for secondary stroke prophylaxis despite recent history of GI bleed. DVT prophylaxis with Lovenox. He may need watchman's procedure/left atrial appendage closure. Echocardiogram shows normal EF, no cardiac thrombus.
--- NOTE | 2021-10-25 15:56 | P.PN ---
Date of Service: 10/25/21 ok to start anticoagulation from surgical standpoint
[2021-10-25] MEDS ORDERED: GLUCERNA 1.5 CAL 1,000 ML BOT FT SCH (17:00)
[2021-10-25 19:59] VITALS: BMI 22.4
[2021-10-25 20:52] LABS: Absolute Lymphocytes (CBC) 0.9 K/uL (0.7-4.9); Hematocrit 35.8 % (39.6-49.0); Lymphocytes % 9.2 % (15.3-44.8); MPV 7.7 fL (7.6-11.3); RBC Red Blood Cell Count 3.73 M/uL (4.33-5.43)
[2021-10-25 20:56] LABS: Protime INR 1.2
[2021-10-25] MEDS: HEPARIN/D5W 25,000 UNIT/500 ML BAG IV SCH (21:57)
[2021-10-25] MEDS: ATORVASTATIN 40 MG TAB PO SCH (22:00)
[2021-10-26] MEDS: SOTALOL HCL 80 MG TAB PO SCH ×2 (05:25→17:28)
[2021-10-26] MEDS: INSULIN -REGULAR HUMAN 50 UNIT/0.5 ML ML SQ SCH ×4 (07:30→21:00)
[2021-10-26 08:40] LABS: Absolute Lymphocytes (CBC) 0.9 K/uL (0.7-4.9); Hematocrit 40.8 % (39.6-49.0); Lymphocytes % 9.7 % (15.3-44.8); MPV 7.8 fL (7.6-11.3); Potassium 3.7 mmol/L (3.5-5.1); RBC Red Blood Cell Count 4.25 M/uL (4.33-5.43)
--- NOTE | 2021-10-26 09:47 | P.PN ---
Subjective Date of Service: 10/26/21 Chief Complaint: CVA R/O Subjective: Improving (Patient has no pain @ Gtube, it is functional with tube feedings currently, no bleeding after anticoag started, patient feels well and has no new complaints.) Physical Examination - Vital Signs Temperature: 97.5 F Blood Pressure: 128/70 Pulse: 79 Respirations: 18 Pulse Ox (%): 97 - Physical Exam General: Alert, In no apparent distress, Cooperative (Patient answers questions appropriately) Gastrointestinal: Soft and benign, No masses, No rebound, No guarding, Other (minimal appropriate tenderness @ PEG site, clean and dry, functional) Assessment And Plan - Plan - continue medical management - tube feedings per dietary recommendations - will sign off for now, call with any new concerns
[2021-10-26] MEDS: ASPIRIN EC 81 MG TAB PO SCH (10:34)
[2021-10-26] MEDS: TAMSULOSIN 0.4 MG SR CAP PO SCH (10:34)
[2021-10-26] MEDS: PREGABALIN 75 MG CAP PO SCH ×4 (10:35→21:01)
[2021-10-26] MEDS: METOPROLOL TAR 25 MG TAB PO SCH ×2 (10:35→21:01)
[2021-10-26] MEDS: FOLIC ACID 1 MG TABLET PO SCH (10:35)
[2021-10-26] MEDS: CLOPIDOGREL 75 MG TABLET PO SCH (10:35)
[2021-10-26] MEDS: PANTOPRAZOLE 40 MG INJ IVP SCH ×2 (10:36→21:00)
[2021-10-26] MEDS ORDERED: POTASSIUM 25 MEQ EFFERV TAB PO ONE (12:15)
--- NOTE | 2021-10-26 16:09 | P.PN ---
Subjective Date of Service: 10/26/21 Chief Complaint: CVA R/O Patient has no complaint. He is tolerating PEG tube feeding. Oral medications resumed. Physical Examination - Vital Signs Temperature: 98.2 F Blood Pressure: 97/65 Pulse: 119 Respirations: 18 Pulse Ox (%): 95 Assessment And Plan - Current Problems (Diagnosis) (1) Acute CVA (cerebrovascular accident) Current Visit: Yes Status: Acute (2) History of gastrointestinal hemorrhage Current Visit: Yes Status: Acute (3) Rapid atrial fibrillation Current Visit: Yes Status: Acute (4) Ischemic heart disease Current Visit: Yes Status: Chronic (5) Type 2 diabetes mellitus Current Visit: Yes Status: Chronic Qualifiers: Diabetes mellitus detention insulin use: without tank terminal gauger use Diabetes mellitus complication status: with hyperglycemia Qualified Code(s): E11.65 - Type 2 diabetes mellitus with hyperglycemia (6) History of diverticulosis Current Visit: No Status: Chronic - Plan Physical Exam General: Alert, In no apparent distress Neck: Supple, Without JVD. Respiratory: Clear to auscultation bilaterally, Normal air movement Cardiovascular: Regular rate/rhythm, Normal S1 S2 Gastrointestinal: Normal bowel sounds, No tenderness Musculoskeletal: No tenderness Integumentary: No rashes Neurological: Normal speech, Normal strength at 5/5 x4 extr, Normal tone, Sensation intact, Normal affect. Plan: MRI of the brain shows acute CVA in the right deepak. Patient ambulated without an assistive device. No need for further PT per therapist. Seen by speech and modified barium swallow done which showed significant dysph agia. 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 Speech therapy recommended n.p.o. and alternate form of feeding. General surgery Dr. Mills consulted. Dr. Mills placed PEG tube inserted. Patient noted to have multiple gastric ulcers. Biopsies taken for histology and to rule out Helicobacter infection. He is tolerating PEG tube feeding. Continue oral medications. He is on sotalol and metoprolol for A. fib Patient is high risk for subsequent CVA given history of A. fib and stroke but high risk for anticoagulation due to recent GI bleed. Dr. Brandon recommend anticoagulation for secondary stroke prophylaxis despite recent history of GI bleed given the high as risk of acute stroke within the next [address] Mills agrees with a trial of anticoagulation Patient's son was updated. He agrees to a trial of anticoagulation. Patient started on heparin drip. Monitor for active bleeding. Will transition to oral Coumadin if no bleeding occur and monitor PT and INR He may need watchman's procedure/left atrial appendage closure. Dr. Brandon plan to follow-up with him as an outpatient for evaluation. Echocardiogram shows normal EF, no cardiac thrombus.
[2021-10-26 17:30] LABS: Protime INR 1.18
[2021-10-26] MEDS: WARFARIN SODIUM 5 MG TAB PO SCH (18:36)
[2021-10-26] MEDS: ATORVASTATIN 40 MG TAB PO SCH (21:00)
[2021-10-26] MEDS: NA CHLORIDE 0.9% 1,000 ML IV SCH (23:09)
[2021-10-27] MEDS: INSULIN -REGULAR HUMAN 50 UNIT/0.5 ML ML SQ SCH ×4 (05:08→17:48)
[2021-10-27] MEDS: SOTALOL HCL 80 MG TAB PO SCH ×2 (05:20→17:42)
[2021-10-27] MEDS: NA CHLORIDE 0.9% 1,000 ML IV SCH ×2 (05:21→17:48)
[2021-10-27 06:19] LABS: MPV 7.7 fL (7.6-11.3)
[2021-10-27 06:30] LABS: Potassium 3.8 mmol/L (3.5-5.1)
[2021-10-27 06:43] LABS: Protime INR 1.1
[2021-10-27] MEDS: HEPARIN/D5W 25,000 UNIT/500 ML BAG IV SCH (07:16)
[2021-10-27] MEDS ORDERED: POTASSIUM CL SA 10 MEQ TAB PO ONE ×2 (08:45→09:49)
[2021-10-27] MEDS ORDERED: KCL 20 MEQ/100 mL IVPB 20 MEQ/100 ML BAG IV SCH (09:00)
[2021-10-27] MEDS: PANTOPRAZOLE 40 MG INJ IVP SCH ×2 (09:35→21:22)
[2021-10-27] MEDS: PREGABALIN 75 MG CAP PO SCH ×4 (09:36→21:16)
[2021-10-27] MEDS: METOPROLOL TAR 25 MG TAB PO SCH ×2 (09:36→21:17)
[2021-10-27] MEDS: CLOPIDOGREL 75 MG TABLET PO SCH (09:36)
[2021-10-27] MEDS: ASPIRIN EC 81 MG TAB PO SCH (09:36)
[2021-10-27] MEDS: TAMSULOSIN 0.4 MG SR CAP PO SCH (09:36)
[2021-10-27] MEDS: FOLIC ACID 1 MG TABLET PO SCH (09:36)
[2021-10-27] MEDS: METOPROLOL TARTRATE 5 MG/5 ML INJ IV PRN (12:30)
--- NOTE | 2021-10-27 15:02 | P.PN ---
Subjective Date of Service: 10/27/21 Chief Complaint: CVA R/O Patient has no complaint. He is tolerating PEG tube feeding. Oral medications resumed. Noted to have A. fib with RVR. Physical Examination - Vital Signs Temperature: 98.3 F Blood Pressure: 112/74 Pulse: 121 Respirations: 16 Pulse Ox (%): 97 Assessment And Plan - Current Problems (Diagnosis) (1) Acute CVA (cerebrovascular accident) Current Visit: Yes Status: Acute (2) History of gastrointestinal hemorrhage Current Visit: Yes Status: Acute (3) Rapid atrial fibrillation Current Visit: Yes Status: Acute (4) Ischemic heart disease Current Visit: Yes Status: Chronic (5) Type 2 diabetes mellitus Current Visit: Yes Status: Chronic Qualifiers: Diabetes mellitus intermodal customer service insulin use: without intermodal customer service use Diabetes mellitus complication status: with hyperglycemia Qualified Code(s): E11.65 - Type 2 diabetes mellitus with hyperglycemia (6) History of diverticulosis Current Visit: No Status: Chronic - Plan Physical Exam General: Alert, In no apparent distress Neck: Supple, Without JVD. Respiratory: Clear to auscultation bilaterally, Normal air movement Cardiovascular: Regular rate/rhythm, Normal S1 S2 Gastrointestinal: Normal bowel sounds, No tenderness Musculoskeletal: No tenderness Integumentary: No rashes Neurological: Normal speech, Normal strength at 5/5 x4 extr, Normal tone, Sensation intact, Normal affect. Plan: MRI of the brain shows acute CVA in the right deepak. Patient ambulated without an assistive device. No need for further PT per therapist. Seen by speech and modified barium swallow done which showed significant dysphagia. 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 Speech therapy recommended n.p.o. and alternate form of feeding. General surgery Dr. Mills consulted. Dr. Mills placed PEG tube inserted. Patient noted to have multiple gastric ulcers. Biopsies taken for histology and to rule out Helicobacter infection. He is tolerating PEG tube feeding. Continue oral medications. He is on sotalol and metoprolol for A. fib Patient is high risk for subsequent CVA given history of A. fib and stroke but high risk for anticoagulation due to recent GI bleed. Dr. Brandon recommend anticoagulation for secondary stroke prophylaxis despite recent history of GI bleed given the high risk of acute stroke within the next [address] Mills agrees with a trial of anticoagulation Patient's son was updated. He agrees to a trial of anticoagulation. Patient started on heparin drip. Coumadin added yesterday. No active bleeding Monitor PT and INR. Would recommend INR to be therapeutic before discharge. He may need watchman's procedure/left atrial appendage closure. Dr. Brandon plan to follow-up with him as an outpatient for evaluation. Echocardiogram shows normal EF, no cardiac thrombus.
[2021-10-27] MEDS: WARFARIN SODIUM 5 MG TAB PO SCH (17:42)
[2021-10-27] MEDS: ATORVASTATIN 40 MG TAB PO SCH (21:19)
--- NOTE | 2021-10-28 03:10 | CON ---
Reason For Consultation: Consultation called because of stroke. History Of Present Illness: Mr. Peña is an 86-year-old patient who comes to [facility] on October 21 with dysarthria, dysphagia, and diffuse weakness along with some difficulty swallowi ng. The patient's symptoms developed the day prior to his hospital admission, but he did not immedia tely come to [facility]. At the time, he was evaluated. He had been seen by his son, who b rought him in, after he could not express himself properly and had significant dysarthria as well as the aphasia. His head CT and neck CT angiograms were negative for any acute ischemic or hemorrhagic findings. However, subsequent brain MRI, which was done the day after admission, identified a 17 x 1 0 mm acute infarct in the right deepak. It is likely that, that is related to a deep penetrating vesse l and not likely from cardioembolic sources as that area is not prone to cardioembolic strokes, but s trokes related to hypertension, diabetes, and dyslipidemia. In any event this is explaining the kishan ent's symptoms. MRI of his brain otherwise shows small vessel ischemic disease. MRA of the head mena ws no significant abnormalities in the ramona of Perez, and MRA of his neck identified no significan t abnormalities in the neck vessels. He is also diagnosed with paroxysmal atrial fibrillation and is recommended to be on anticoagulation. It should be noted that the patient does have history of GI b leed, and there is the possibility of a recurrence of GI bleed; however, his risk of stroke with atri al fibrillation in general population will outweigh the risk of GI bleed, which can be alon ated with replacement, but not the brain. Barium swallow study done on the showed laryngeal penetration was not clear with thin liquids, wi th honey pureed, or dry solid. There was aspiration with no cough, with nectar. There was mild ____ residual with all consistencies. There was absent epiglottic deflection and minimal laryngeal ablation. Recommendation was for a PEG tube, which was placed by Dr. Mills. The patient was actually evaluated in the emergency room by the physical therapist and at the time of his evaluation, his ability to ambulate was fairly intact despite the findings on his imaging. It w as recommended that the patient have outpatient physical therapy as he was doing well enough to not b e a candidate for acute inpatient rehabilitation. Past Medical History: Noninsulin-dependent diabetes mellitus, dyslipidemia, peripheral neuropathy, s hingles, ischemic heart disease, stage IV tongue cancer, hypothyroidism. Surgical History: Triple cardiac bypass, cholecystectomy, cervical surgery at C6-7, right inguinal h ernia repair and left inguinal hernia repair, left-sided neck nodule removal. Allergies: NO KNOWN DRUG ALLERGIES. Medications: At home, Lipitor 40 mg at bedtime, Cymbalta 60 mg daily, Synthroid 100 mcg daily, Carey a 75 mg 4 times daily, metformin in combination - Janumet daily, Flomax 0.4 mg daily, Valtrex mg twice daily, magnesium oxide 400 mg twice daily, fluticasone 1 spray daily, midodrine 10 mg 3 times daily, amoxicillin clavulanate twice daily for 20 days starting on , metoprol ol 12.5 mg twice daily, Protonix 40 mg daily. Social History: Patient smoked in the past. Lives at home. No alcohol use. Review of Systems: Dysarthria, dysphagia. Difficulty with balance, gait, coordination. Physical Examination: Vital Signs: Blood pressure 113/77, pulse of 110, respiratory rate 16, temperature 97.8, oxygen satu ration 97%. Weight 170 pounds, height 6 feet 1 inch, BMI 22.4. General: Mr. Peña is resting in bed. He is in no significant distress. HEENT: Normocephalic, atraumatic. Sclerae anicteric. Oropharynx is moist and pink. Neck: Supple. Chest: Clear. Heart: Irregular. Extremities: Show no clubbing, cyanosis, or edema. Neurological: He is alert and oriented to situation, place, and person. Follows commands appropriat rachana. He has difficulty with lingual, labial, and guttural sounds. Face appears symmetric with fair excursion bilaterally. Motor, he does move arms and legs equally well. Sensation is decreased in th e stocking glove fashion, upper and lower extremities. Reflexes depressed in upper and lower extremi ties. Assessment: Mr. Peña is an 86-year-old patient with multiple stroke risk factors in addition to significant brainstem stroke. He does have marked dysarthria and dysphagia, and has had a percutaneo us tube placed. Plan: 1.He will benefit from aggressive physical therapy, may be able to be done outpatient. 2.At this point, given atrial fibrillation, he should be on anticoagulation, Eliquis 5 mg twice storm y is adequate. 3.He does have a history of GI bleed and should be monitored by H and H on ongoing basis. Yesterday 's hemoglobin was 14.0, hematocrit 40.8. White blood cell count was normal. His blood sugars were s lightly elevated 130s to 150s. His COVID test was negative. Plan: 1.As indicated, anticoagulation is recommended. Aggressive management of hypertension, dyslipidemia , and diabetes mellitus. 2.Continue with PEG tube. 3.Continue with aggressive speech therapy to help regain swallowing function. 4.Patient may be discharged and have outpatient therapy if he is unable to either qualify or does no t want inpatient rehabilitation. Note, his brain MRI is negative for hemorrhagic conversion. CÉSAR/SARAH Voice ID: [id number] Report ID: [id number]
[2021-10-28 04:52] LABS: MPV 7.8 fL (7.6-11.3)
[2021-10-28 04:54] LABS: Protime INR 1.21
[2021-10-28] MEDS: NA CHLORIDE 0.9% 1,000 ML IV SCH ×2 (05:41→15:09)
[2021-10-28] MEDS: SOTALOL HCL 80 MG TAB PO SCH ×2 (05:41→16:36)
[2021-10-28] MEDS: INSULIN -REGULAR HUMAN 50 UNIT/0.5 ML ML SQ SCH ×4 (06:00→16:47)
[2021-10-28] MEDS: PREGABALIN 75 MG CAP PO SCH ×4 (10:12→21:55)
[2021-10-28] MEDS: FOLIC ACID 1 MG TABLET PO SCH (10:12)
[2021-10-28] MEDS: CLOPIDOGREL 75 MG TABLET PO SCH (10:12)
[2021-10-28] MEDS: METOPROLOL TAR 25 MG TAB PO SCH ×2 (10:12→21:56)
[2021-10-28] MEDS: TAMSULOSIN 0.4 MG SR CAP PO SCH (10:12)
[2021-10-28] MEDS: ASPIRIN EC 81 MG TAB PO SCH (10:12)
[2021-10-28] MEDS: PANTOPRAZOLE 40 MG INJ IVP SCH ×2 (10:13→21:55)
[2021-10-28] MEDS: METOPROLOL TARTRATE 5 MG/5 ML INJ IV PRN (10:15)
--- NOTE | 2021-10-28 15:45 | EKG ---
Test Date: 2021-10-23 Test Time: 20:47:32 Yard Operator: HB MEASUREMENT RESULTS: Intervals: Rate: 103 WY: 216 QRSD: 140 QT: 400 QTc: 524 [place]: P: [place]: 216 QRS: -78 T: 14 INTERPRETIVE STATEMENTS: Sinus tachycardia with 1st degree AV block with premature atrial complexes in a pattern of bigeminy Right bundle branch block Left anterior fascicular block Bifascicular block Abnormal ECG Compared to ECG 10/21/2021 20:53:30 First degree AV block now present Sinus rhythm no longer present Myocardial infarct finding no longer present Bifascicular block still present Electronically Signed On 10-28-21 15:41:49 CDT by Jordan Brandon
[2021-10-28] MEDS: WARFARIN SODIUM 5 MG TAB PO SCH (16:36)
[2021-10-28] MEDS: GLUCERNA 1.5 CAL 1,000 ML BOT FT SCH ×2 (16:37→21:56)
--- NOTE | 2021-10-28 17:33 | P.PN ---
Subjective Date of Service: 10/28/21 Chief Complaint: CVA R/O Subjective: No new changes (Patient continues to do well. He is tolerating systemic anticoagulation without complications.) Physical Examination - Vital Signs Temperature: 97.4 F Blood Pressure: 119/76 Pulse: 121 Respirations: 18 Pulse Ox (%): 97 - Physical Exam General: In no apparent distress, Cooperative HEENT: Atraumatic, Normocephalic Respiratory: Clear to auscultation bilaterally, Normal air movement Cardiovascular: Normal pulses, Regular rate/rhythm, Normal S1 S2 Gastrointestinal: Soft and benign, Non-distended Musculoskeletal: No clubbing, No swelling, No contractures, No erythema Neurological: Normal speech, Normal tone, Sensation intact Assessment And Plan - Current Problems (Diagnosis) (1) Acute CVA (cerebrovascular accident) Current Visit: Yes Status: Acute (2) History of gastrointestinal hemorrhage Current Visit: Yes Status: Acute (3) Rapid atrial fibrillation Current Visit: Yes Status: Acute (4) Afib Current Visit: Yes Status: Chronic Qualifiers: Atrial fibrillation type: paroxysmal Qualified Code(s): I48.0 - Paroxysmal atrial fibrillation (5) Ischemic heart disease Current Visit: Yes Status: Chronic (6) Type 2 diabetes mellitus Current Visit: Yes Status: Chronic 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 He is currently admitted with an acute stroke. His hospital course was complicated by rapid atrial fibrillation. He was placed on systemic anticoagulation which he tolerated well. Right pontine stroke Atrial fibrillation History of GI bleeding Hypertension Type 2 diabetes mellitus Plan: Patient has tolerated anticoagulation well He is going to be transition to apixaban long-term We will keep overnight to monitor for signs of bleeding Cardiology plan for watchman procedure considering his history of diverticular bleed Continue with PT/OT while in-house. We are working to send him to [facility] for rehab Patient ambulated without an assistive device. No need for further PT per therapist. As per chart review, he has a history of dysphagia due to tongue cancer and was deemed a poor candidate for p.o. diet. He currently has a PEG tube placed by surgery Noted to have multiple gastric ulcers during PEG tube placement. Biopsies taken for histology and to rule out Helicobacter infection. He is tolerating PEG tube feeding. Transition to bolus feeds Continue oral medications. Continue sotalol and metoprolol for A. fib
[2021-10-28] MEDS: APIXABAN 5 MG TABLET PO SCH (21:55)
[2021-10-28] MEDS: ATORVASTATIN 40 MG TAB PO SCH (21:55)
--- NOTE | 2021-10-28 23:04 | PN ---
Date of Progress Note: 10/28/2021 Subjective: Seen at bedside, doing well, no new changes, and the patient apparently was started on C oumadin today. Review of Systems: No chest pain, shortness of breath, orthopnea, or cough. No nausea, vomiting, or diarrhea. No abdom inal pain. No dysuria, polyuria, or urinary urgency. No skin rash. All other systems reviewed and are negative. Objective: Vital Signs: Reviewed. Head and Neck: Pupils are equal and reactive to light. Intact eye movements. No JVD. No cervical lymphadenopathy. Neck is supple. Thyroid is not enlarged. Lungs: Clear to auscultation bilaterally. No rhonchi, rales, or crackles. No accessory muscle use. Heart: Irregularly irregular. No extra sounds. Abdomen: Soft, nontender. Bowel sounds positive. No organomegaly. No masses or hernia. No rigidi ty or rebound. Extremities: No clubbing or cyanosis. Intact pulses. Skin: No rash. Neurologic: Alert, awake, oriented x3. No acute focal deficits appreciated. Investigation: Labs are reviewed. Assessment And Recommendation: Cerebrovascular accident in the setting of the atrial fibrillation. The patient will need to be fully anticoagulated to discontinue the Plavix, put him on Eliquis 5 mg t wice a day and baby aspirin. The patient had history of recent GI bleed. We will plan for appendage closure on him as an outpatient once he gets released from the [facility]. SR/MODL Voice ID: [id number] Report ID: [id number]
[2021-10-29] MEDS: NA CHLORIDE 0.9% 1,000 ML IV SCH ×3 (01:05→12:00)
[2021-10-29 03:43] LABS: Protime INR 2.04
[2021-10-29 03:44] LABS: Absolute Lymphocytes (CBC) 1.4 K/uL (0.7-4.9); Hematocrit 38.4 % (39.6-49.0); Lymphocytes % 11.9 % (15.3-44.8); MPV 7.9 fL (7.6-11.3); RBC Red Blood Cell Count 4.04 M/uL (4.33-5.43)
[2021-10-29] MEDS: INSULIN -REGULAR HUMAN 50 UNIT/0.5 ML ML SQ SCH ×4 (06:00→18:00)
[2021-10-29] MEDS: SOTALOL HCL 80 MG TAB PO SCH (06:24)
[2021-10-29] MEDS: TAMSULOSIN 0.4 MG SR CAP PO SCH (09:27)
[2021-10-29] MEDS: PANTOPRAZOLE 40 MG INJ IVP SCH ×2 (09:27→21:40)
[2021-10-29] MEDS: METOPROLOL TAR 25 MG TAB PO SCH ×2 (09:28→21:46)
[2021-10-29] MEDS: GLUCERNA 1.5 CAL 1,000 ML BOT FT SCH ×5 (09:28→21:40)
[2021-10-29] MEDS: FOLIC ACID 1 MG TABLET PO SCH (09:28)
[2021-10-29] MEDS: APIXABAN 5 MG TABLET PO SCH ×2 (09:28→21:39)
[2021-10-29] MEDS: PREGABALIN 75 MG CAP PO SCH ×4 (09:28→18:23)
[2021-10-29] MEDS ORDERED: NA CHLORIDE 0.9% 1,000 ML IV ONE (14:00)
[2021-10-29] MEDS ORDERED: AMIODARONE HCL 450 MG in D5W 241 ML IV SCH (14:00)
[2021-10-29] MEDS ORDERED: AMIODARONE HCL 900 MG in Dextrose 5%-Water 482 ML IV SCH (14:00)
[2021-10-29] MEDS ORDERED: AMIODARONE HCL 150 MG in D5W 100 ML IV STA (14:00)
--- NOTE | 2021-10-29 14:00 | P.PN ---
Subjective Date of Service: 10/29/21 Chief Complaint: CVA R/O Subjective: No new changes (Patient is tolerating systemic anticoagulation without difficulty. However, he continues to have unexplained tachycardia. EKG pending) Physical Examination - Vital Signs Temperature: 97.9 F Blood Pressure: 93/68 Pulse: 120 Respirations: 18 Pulse Ox (%): 96 - Physical Exam General: In no apparent distress, Cooperative HEENT: Atraumatic, Normocephalic Respiratory: Clear to auscultation bilaterally, Normal air movement Cardiovascular: Regular rate/rhythm, Normal S1 S2, Other (tachycardia) Gastrointestinal: Soft and benign, Non-distended Musculoskeletal: No clubbing, No swelling, No contractures, No erythema Neurological: Normal speech, Cranial nerves 3-12 intact Assessment And Plan - Current Problems (Diagnosis) (1) Acute CVA (cerebrovascular accident) Current Visit: Yes Status: Acute (2) History of gastrointestinal hemorrhage Current Visit: Yes Status: Acute (3) Rapid atrial fibrillation Current Visit: Yes Status: Acute (4) Afib Current Visit: Yes Status: Chronic Qualifiers: Atrial fibrillation type: paroxysmal Qualified Code(s): I48.0 - Paroxysmal atrial fibrillation (5) Ischemic heart disease Current Visit: Yes Status: Chronic (6) Type 2 diabetes mellitus Current Visit: Yes Status: Chronic Qualifiers: 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 He is currently admitted with an acute stroke. His hospital course was complicated by rapid atrial fibrillation. He was placed on systemic anticoagulation. No signs of overt bleeding. However, he has been having unexplained tachycardia. He is on metoprolol and sotalol without good rate control. Narrow complex tachycardia Right pontine stroke Atrial fibrillation History of GI bleeding Hypertension Type 2 diabetes mellitus Plan: Will obtain a 12-lead EKG Antiarrhythmics changed to amiodarone. He will receive a bolus, then an infusion dose GI bleeding unlikely with stable H/H. Hb 13.3 today Continue monitoring given evidence of multiple gastric ulcers on EGD. Follow biopsy results Will give a bolus of NS Continue tube feeds via PEG. As per chart review, he has a history of dysphagia due to tongue cancer and was deemed a poor candidate for p.o. diet. Cardiology plan for watchman procedure considering his history of diverticular bleed Continue with PT/OT while in-house. He has been accepted to [facility]
[2021-10-29 16:41] LABS: Phosphorus 2.6 mg/dL (2.5-4.9)
[2021-10-29 16:54] LABS: Magnesium 2.1 mg/dL (1.8-2.4); Potassium 4.6 mmol/L (3.5-5.1)
--- NOTE | 2021-10-29 17:06 | EKG ---
Test Date: 2021-10-29 Test Time: 14:27:20 [employer] Worker: ADITHYA MEASUREMENT RESULTS: Intervals: Rate: 122 NE: 82 QRSD: 130 QT: 392 QTc: 558 [place]: P: 54 NE: 82 QRS: -86 T: 78 INTERPRETIVE STATEMENTS: Sinus tachycardia with short NE with fusion complexes Left axis deviation Right bundle branch block Abnormal ECG Compared to ECG 10/23/2021 20:47:32 Fusion complex(es) now present Short NE interval now present Left-axis deviation now present Atrial premature complex(es) no longer present First degree AV block no longer present Left anterior fascicular block no longer present Bifascicular block no longer present Electronically Signed On 10-29-21 17:06:29 CDT by Gm Romo
[2021-10-29] MEDS: ATORVASTATIN 40 MG TAB PO SCH ×2 (21:00→21:39)
[2021-10-29] MEDS: DULOXETINE 30 MG CAP PO SCH (21:38)
[2021-10-29] MEDS: VALACYCLOVIR 500 MG TAB PO SCH (21:39)
[2021-10-30] MEDS: INSULIN -REGULAR HUMAN 50 UNIT/0.5 ML ML SQ SCH ×4 (06:00→18:00)
[2021-10-30] MEDS: LEVOTHYROXINE SOD 0.125 MG TAB PO SCH (06:13)
[2021-10-30 08:12] LABS: Hematocrit 36.8 % (39.6-49.0); Lymphocytes % 7.8 % (15.3-44.8); MCV 93.7 fL (80-100); RBC Red Blood Cell Count 3.93 M/uL (4.33-5.43)
[2021-10-30] MEDS: PANTOPRAZOLE 40 MG INJ IVP SCH ×2 (08:21→22:22)
[2021-10-30] MEDS: FOLIC ACID 1 MG TABLET PO SCH (08:21)
[2021-10-30] MEDS: METOPROLOL TAR 25 MG TAB PO SCH ×2 (08:22→22:22)
[2021-10-30] MEDS: GLUCERNA 1.5 CAL 1,000 ML BOT FT SCH ×5 (08:22→23:17)
[2021-10-30] MEDS: APIXABAN 5 MG TABLET PO SCH ×2 (08:22→22:22)
[2021-10-30] MEDS: TAMSULOSIN 0.4 MG SR CAP PO SCH (08:22)
[2021-10-30] MEDS: PREGABALIN 75 MG CAP PO SCH ×4 (08:22→22:22)
--- NOTE | 2021-10-30 10:31 | RAD REPORT ---
EXAM DESCRIPTION: RAD - Abdomen Acute Series - 10/30/2021 10:23 am CLINICAL HISTORY: Abdominal pain FINDINGS: Free air is not seen the diaphragm. The lungs appear clear of acute infiltrate. The bowel gas pattern is unremarkable. Marked diverticulosis
[2021-10-30] MEDS ORDERED: AMIODARONE HCL 900 MG in Dextrose 5%-Water 482 ML IV SCH (14:00)
--- NOTE | 2021-10-30 15:43 | P.PN ---
Subjective Date of Service: 10/30/21 Chief Complaint: CVA R/O Subjective: No new changes (Patient is still on amiodarone drip. Otherwise, no acute changes overnight.) Physical Examination - Vital Signs Temperature: 97.8 F Blood Pressure: 107/75 Pulse: 114 Respirations: 20 Pulse Ox (%): 96 - Physical Exam General: Alert, In no apparent distress, Cooperative HEENT: Atraumatic, Normocephalic Respiratory: Clear to auscultation bilaterally, Normal air movement Cardiovascular: Normal S1 S2, Other (tachycardic), Irregular heart rate/rhythm Gastrointestinal: Soft and benign, Non-distended, Other (PEG) Musculoskeletal: No clubbing, No swelling, No contractures, No erythema Neurological: Normal speech, Sensation intact, Cranial nerves 3-12 intact Assessment And Plan - Current Problems (Diagnosis) (1) Acute CVA (cerebrovascular accident) Current Visit: Yes Status: Acute (2) History of gastrointestinal hemorrhage Current Visit: Yes Status: Acute (3) Rapid atrial fibrillation Current Visit: Yes Status: Acute (4) Afib Current Visit: Yes Status: Chronic Qualifiers: Atrial fibrillation type: paroxysmal Qualified Code(s): I48.0 - Paroxysmal atrial fibrillation (5) Ischemic heart disease Current Visit: Yes Status: Chronic (6) Type 2 diabetes mellitus Current Visit: Yes Status: Chronic Qualifiers: 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 He is currently admitted with an acute stroke. His hospital course was complicated by rapid atrial fibrillation. He was placed on systemic anticoagulation. No signs of overt bleeding. However, he has been having unexplained tachycardia. Previously on metoprolol and sotalol without good rate control. Narrow complex tachycardia Right pontine stroke Atrial fibrillation History of GI bleeding Hypertension Type 2 diabetes mellitus Plan: Continue amiodarone infusion Patient's leukocytosis is most likely non-infectious Will hold off antibiotics for now GI bleeding unlikely with stable H/H Continue monitoring given evidence of multiple gastric ulcers on EGD. Follow biopsy results Continue tube feeds via PEG. As per chart review, he has a history of dysphagia due to tongue cancer and was deemed a poor candidate for p.o. diet. Cardiology plan for watchman procedure considering his history of diverticular bleed DC to [facility] once medically cleared
[2021-10-30] MEDS: NA CHLORIDE 0.9% 1,000 ML IV SCH ×2 (16:01→20:29)
[2021-10-30] MEDS: ATORVASTATIN 40 MG TAB PO SCH ×2 (21:00→22:21)
[2021-10-30] MEDS: VALACYCLOVIR 500 MG TAB PO SCH (22:21)
[2021-10-30] MEDS: DULOXETINE 30 MG CAP PO SCH (22:21)
[2021-10-31] MEDS: NA CHLORIDE 0.9% 1,000 ML IV SCH (05:30)
[2021-10-31] MEDS: INSULIN -REGULAR HUMAN 50 UNIT/0.5 ML ML SQ SCH ×4 (05:48→18:00)
[2021-10-31] MEDS: LEVOTHYROXINE SOD 0.125 MG TAB PO SCH (05:58)
[2021-10-31] MEDS: FOLIC ACID 1 MG TABLET PO SCH (08:27)
[2021-10-31] MEDS: APIXABAN 5 MG TABLET PO SCH ×2 (08:27→22:27)
[2021-10-31] MEDS: METOPROLOL TAR 25 MG TAB PO SCH (08:27)
[2021-10-31] MEDS: PREGABALIN 75 MG CAP PO SCH ×4 (08:27→22:33)
[2021-10-31] MEDS: TAMSULOSIN 0.4 MG SR CAP PO SCH (08:27)
[2021-10-31] MEDS: PANTOPRAZOLE 40 MG INJ IVP SCH (08:28)
[2021-10-31] MEDS: GLUCERNA 1.5 CAL 1,000 ML BOT FT SCH ×5 (08:31→22:28)
--- NOTE | 2021-10-31 09:12 | P.PN ---
Subjective Date of Service: 10/31/21 Chief Complaint: Atrial fibrillation chest congestion Subjective: Improving (Improving no new complaints) Hemoglobin stable no bleeding Review of Systems Respiratory: Cough, Shortness of Breath Physical Examination - Vital Signs Temperature: 98.4 F Blood Pressure: 117/72 Pulse: 114 Respirations: 16 Pulse Ox (%): 94 - Physical Exam General: Alert, In no apparent distress, Oriented x3 Respiratory: Expiratory wheezes Cardiovascular: No edema, Regular rate/rhythm, Normal S1 S2 Assessment And Plan - Current Problems (Diagnosis) (1) Rapid atrial fibrillation Current Visit: Yes Status: Acute Plan: Patient is currently on amiodarone drip has persistent chest congestion for a long time smoking in the 1960s still is a little tachycardic patient is back in normal sinus rhythm since seen by cardiology needs to be fully anticoagulated none procedure as an outpatient he cannot swallow has a PEG tube recent history of stroke in the [place] patient is back in sinus rhythm chest congestion add some nebulizers will finish off the amiodarone drip patient is on metoprolol increased dose stable hemoglobin DC IV pantoprazole patient has a PEG tube discharge planning Physician Review: Patient Assessed, Agree with Above Assessment and Plan
[2021-10-31] MEDS: ASPIRIN EC 81 MG TAB PO SCH (09:50)
[2021-10-31] MEDS ORDERED: ALBUTEROL 2.5 MG/3 ML NEB SOL NEB PRN ×2 (10:01→15:00)
--- NOTE | 2021-10-31 11:34 | RAD REPORT ---
EXAM DESCRIPTION: RAD - Chest Single View - 10/31/2021 11:28 am CLINICAL HISTORY: SOb COMPARISON: Portable 10/30/2021, portable 10/15/2021 TECHNIQUE: AP portable chest image was obtained 10/31/2021 11:28 am . FINDINGS: Prominent interstitial pattern is present not clearly different from the comparison studie s. No new mass or consolidation. No new or developing mass or lymphadenopathy in either hilum. Trachea is midline. Sternotomy wires and CABG surgical changes noted. Heart and vasculature are ap l. No measurable pleural effusion and no pneumothorax. No acute bony abnormality seen. No acute aortic f indings suspected. IMPRESSION: No acute cardiopulmonary process. No significant change from prior imaging.
[2021-10-31] MEDS ORDERED: ALBUTEROL 2.5 MG/3 ML NEB SOL NEB SCH (12:00)
[2021-10-31] MEDS: ARFORMOTEROL TARTRATE 15 MCG/2 ML VIAL.NEB NEB SCH ×2 (14:00→20:15)
[2021-10-31] MEDS ORDERED: METOPROLOL TAR 50 MG TAB PO SCH (21:00)
[2021-10-31] MEDS: DULOXETINE 30 MG CAP PO SCH (22:27)
[2021-10-31] MEDS: VALACYCLOVIR 500 MG TAB PO SCH (22:27)
[2021-10-31] MEDS: AMIODARONE HCL 200 MG TAB PO SCH (22:27)
[2021-10-31] MEDS: ATORVASTATIN 40 MG TAB PO SCH (22:28)
[2021-11-01] MEDS: INSULIN -REGULAR HUMAN 50 UNIT/0.5 ML ML SQ SCH ×4 (06:00→18:00)
[2021-11-01] MEDS: LEVOTHYROXINE SOD 0.125 MG TAB PO SCH (06:12)
[2021-11-01 06:26] LABS: Absolute Lymphocytes (CBC) 1.1 K/uL (0.7-4.9); Hematocrit 36.1 % (39.6-49.0); Lymphocytes % 8.9 % (15.3-44.8); MCV 94.2 fL (80-100); MPV 8.7 fL (7.6-11.3); RBC Red Blood Cell Count 3.83 M/uL (4.33-5.43)
[2021-11-01] MEDS: ARFORMOTEROL TARTRATE 15 MCG/2 ML VIAL.NEB NEB SCH (08:00)
[2021-11-01 08:17] LABS: Blood Morphology Comment NOTED (NOT SEEN); Hypochromasia 1+; Platelet Estimate ADEQ
--- NOTE | 2021-11-01 08:45 | P.PN ---
Subjective Date of Service: 11/01/21 Chief Complaint: Atrial fibrillation Patient is doing well no new complaints chest congestion has improved normal sinus rhythm Review of Systems Unremarkable General: Weakness Physical Examination - Vital Signs Temperature: 97.7 F Blood Pressure: 111/75 Pulse: 114 Respirations: 14 Pulse Ox (%): 98 - Physical Exam General: Alert, In no apparent distress, Oriented x3 Respiratory: Clear to auscultation bilaterally, Normal air movement Cardiovascular: No edema, Regular rate/rhythm, Normal S1 S2 Assessment And Plan - Current Problems (Diagnosis) (1) Rapid atrial fibrillation Current Visit: Yes Status: Acute Plan: Patient is back in normal sinus rhythm blood pressures little low reduce the dose of metoprolol currently on amiodarone (2) Shortness of breath Current Visit: Yes Status: Acute Plan: Change to inhaled bronchodilator for now physical therapy discharge planning physical therapy (3) Acute CVA (cerebrovascular accident) Current Visit: Yes Status: Acute Plan: Recent stroke in the right deepak patient has a PEG tube labs ordered Physician Review: Patient Assessed, Agree with Above Assessment and Plan
[2021-11-01] MEDS: DULERA 200/5 (MOMETASONE/FORMOTEROL) INHALER IH SCH ×2 (09:00→21:00)
[2021-11-01] MEDS: AMIODARONE HCL 200 MG TAB PO SCH ×2 (09:33→20:54)
[2021-11-01] MEDS: PANTOPRAZOLE 40MG TABLET PO SCH (09:33)
[2021-11-01] MEDS: ASPIRIN EC 81 MG TAB PO SCH (09:33)
[2021-11-01] MEDS: TAMSULOSIN 0.4 MG SR CAP PO SCH (09:33)
[2021-11-01] MEDS: APIXABAN 5 MG TABLET PO SCH ×2 (09:33→20:51)
[2021-11-01] MEDS: FOLIC ACID 1 MG TABLET PO SCH (09:33)
[2021-11-01] MEDS: METOPROLOL TAR 50 MG TAB PO SCH ×2 (09:34→20:53)
[2021-11-01] MEDS: PREGABALIN 75 MG CAP PO SCH ×4 (09:35→20:51)
[2021-11-01] MEDS: GLUCERNA 1.5 CAL 1,000 ML BOT FT SCH ×5 (09:35→20:50)
--- NOTE | 2021-11-01 10:12 | RAD REPORT ---
EXAM DESCRIPTION: Jordon Single View11/01/2021 9:03 am CLINICAL HISTORY: Shortness breath COMPARISON: October 31, 2021 FINDINGS: The lungs appear clear of acute infiltrate. The heart is normal size. Postsurgical change s involve chest IMPRESSION: No acute abnormalities displayed
[2021-11-01 11:50] LABS: Potassium 4.5 mmol/L (3.5-5.1)
[2021-11-01] MEDS: VALACYCLOVIR 500 MG TAB PO SCH (20:51)
[2021-11-01] MEDS: ATORVASTATIN 40 MG TAB PO SCH (20:51)
[2021-11-01] MEDS: DULOXETINE 30 MG CAP PO SCH (20:51)
[2021-11-02 04:03] LABS: Magnesium 1.9 mg/dL (1.8-2.4); Potassium 4.3 mmol/L (3.5-5.1)
[2021-11-02] MEDS: INSULIN -REGULAR HUMAN 50 UNIT/0.5 ML ML SQ SCH ×4 (06:00→18:00)
[2021-11-02] MEDS: LEVOTHYROXINE SOD 0.125 MG TAB PO SCH (06:00)
--- NOTE | 2021-11-02 08:38 | P.PN ---
Subjective Date of Service: 11/02/21 Chief Complaint: Atrial fibrillation history of stroke Doing well no new complaints currently stable A. fib controlled and is for residential placement Review of Systems Unremarkable General: Weakness Physical Examination - Vital Signs Temperature: 97.6 F Blood Pressure: 107/62 Pulse: 114 Respirations: 16 Pulse Ox (%): 95 - Physical Exam General: Alert, Oriented x3 Cardiovascular: No edema, Regular rate/rhythm Assessment And Plan - Current Problems (Diagnosis) (1) Rapid atrial fibrillation Current Visit: Yes Status: Acute Plan: P patient's heart rate is controlled (2) Shortness of breath Current Visit: Yes Status: Acute Plan: Shortness of breath has resolved inhaled bronchodilator seems to be helping him (3) Acute CVA (cerebrovascular accident) Current Visit: Yes Status: Acute Plan: Recent stroke in the right [place] patient has a PEG tube labs ordered no change Physician Review: Patient Assessed, Agree with Above Assessment and Plan
[2021-11-02] MEDS: AMIODARONE HCL 200 MG TAB PO SCH ×2 (08:53→20:49)
[2021-11-02] MEDS: FOLIC ACID 1 MG TABLET PO SCH (08:53)
[2021-11-02] MEDS: PREGABALIN 75 MG CAP PO SCH ×4 (08:53→20:49)
[2021-11-02] MEDS: PANTOPRAZOLE 40MG TABLET PO SCH (08:53)
[2021-11-02] MEDS: TAMSULOSIN 0.4 MG SR CAP PO SCH (08:53)
[2021-11-02] MEDS: ASPIRIN EC 81 MG TAB PO SCH (08:53)
[2021-11-02] MEDS: DULERA 200/5 (MOMETASONE/FORMOTEROL) INHALER IH SCH ×2 (08:54→20:49)
[2021-11-02] MEDS: APIXABAN 5 MG TABLET PO SCH ×2 (08:54→20:49)
[2021-11-02] MEDS: METOPROLOL TAR 50 MG TAB PO SCH ×2 (08:54→20:48)
[2021-11-02] MEDS: GLUCERNA 1.5 CAL 1,000 ML BOT FT SCH ×5 (08:55→20:48)
[2021-11-02 10:39] VITALS: O2SAT 97
--- NOTE | 2021-11-02 19:18 | PN ---
Date of Progress Note: 10/31/2021 Mr. Peña has been followed by Dr. Brandon and Jaiden for a history of CVA in the setting of atrial fibr illation. He is on Eliquis. He will eventually need a Watchman procedure. We will switch his amiod arone to p.o. His vital signs are stable. He is afebrile. Last creatinine is 0.88. Last white cou nt is 12,000. He is still hyponatremic at 129 with a glucose of 200. Present regimen includes amiod arone 400 b.i.d. for a week and then 200 mg daily, Eliquis inhalers, aspirin, Lipitor, insulin, Synth roid, metoprolol, he is on Lyrica, tamsulosin, and Protonix. Again, continue present regimen amiodar one 400 b.i.d. for a week then 200 mg daily. Continue Eliquis. We will plan for a Watchman as an ou tpatient. MOISES/SARAH Voice ID: [id number] Report ID: [id number]
[2021-11-02] MEDS: ATORVASTATIN 40 MG TAB PO SCH (20:49)
[2021-11-02] MEDS: VALACYCLOVIR 500 MG TAB PO SCH (20:49)
[2021-11-02] MEDS: DULOXETINE 30 MG CAP PO SCH (20:49)
[2021-11-03] MEDS: INSULIN -REGULAR HUMAN 50 UNIT/0.5 ML ML SQ SCH ×4 (06:00→18:00)
[2021-11-03] MEDS: LEVOTHYROXINE SOD 0.125 MG TAB PO SCH (06:00)
[2021-11-03] MEDS: GLUCERNA 1.5 CAL 1,000 ML BOT FT SCH ×5 (08:29→21:00)
[2021-11-03] MEDS: FOLIC ACID 1 MG TABLET PO SCH (08:30)
[2021-11-03] MEDS: PANTOPRAZOLE 40MG TABLET PO SCH (08:30)
[2021-11-03] MEDS: AMIODARONE HCL 200 MG TAB PO SCH ×2 (08:30→21:09)
[2021-11-03] MEDS: TAMSULOSIN 0.4 MG SR CAP PO SCH (08:30)
[2021-11-03] MEDS: APIXABAN 5 MG TABLET PO SCH ×2 (08:30→21:09)
[2021-11-03] MEDS: ASPIRIN EC 81 MG TAB PO SCH (08:30)
[2021-11-03] MEDS: METOPROLOL TAR 50 MG TAB PO SCH (08:31)
[2021-11-03] MEDS: PREGABALIN 75 MG CAP PO SCH ×4 (08:32→21:35)
[2021-11-03] MEDS: DULERA 200/5 (MOMETASONE/FORMOTEROL) INHALER IH SCH ×2 (08:33→21:00)
--- NOTE | 2021-11-03 18:45 | P.PN ---
Subjective Date of Service: 11/03/21 Chief Complaint: Atrial fibrillation history of stroke Patient has no complaint. He is tolerating PEG tube feeding. Patient has orthostasis. Systolic blood pressure dropped from 105 to 66 from lying to standing. 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 Respiratory: Clear to auscultation bilaterally, Normal air movement Cardiovascular: Regular rate/rhythm, Normal S1 S2 Gastrointestinal: Normal bowel sounds, No tenderness Musculoskeletal: No tenderness Integumentary: No rashes Neurological: Normal speech, Normal strength at 5/5 x4 extr, Normal tone, Sensation intact, Normal affect. Plan: MRI of the brain: acute CVA in the right deepak. Patient functional status has declined. He is orthostatic and currently having difficulty with ambulation. Seen by speech and modified barium swallow done which showed significant dysphagia. 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 Speech therapy recommended n.p.o. and alternate form of feeding. General surgery Dr. Mills consulted. Dr. Mills placed PEG tube.. Patient noted to have multiple gastric ulcers. Biopsies taken for histology and to rule out Helicobacter infection. He is tolerating PEG tube feeding. Continue oral medications. Patient placed on sotalol and metoprolol for A. fib. Sotalol later changed to amiodarone. Patient now orthostatic. Metoprolol discontinued. Continue amiodarone for now. Patient is high risk for subsequent CVA given history of A. fib and stroke but high risk for anticoagulation due to recent GI bleed. Dr. Brandon recommend anticoagulation for secondary stroke prophylaxis despite recent history of GI bleed given the high risk of acute stroke within the next [address] Mills agrees with a trial of anticoagulation Patient's son was updated. Son agreed to a trial of anticoagulation. Patient started on heparin drip, transition to Coumadin with no active bleeding. Coumadin will be changed to Eliquis. Hemoccult positive but no gross bleeding. He may need watchman's procedure/left atrial appendage closure. Dr. Brandon plan to follow-up with him as an outpatient for evaluation. Echocardiogram shows normal EF, no cardiac thrombus. Patient planned for skilled rehab placement. Physician Review: Patient Assessed, Agree with Above Assessment and Plan
[2021-11-03] MEDS: DULOXETINE 30 MG CAP PO SCH (21:00)
[2021-11-03] MEDS: ATORVASTATIN 40 MG TAB PO SCH (21:00)
[2021-11-03] MEDS: VALACYCLOVIR 500 MG TAB PO SCH (21:35)
[2021-11-04] MEDS: INSULIN -REGULAR HUMAN 50 UNIT/0.5 ML ML SQ SCH ×3 (06:00→12:45)
[2021-11-04] MEDS: LEVOTHYROXINE SOD 0.125 MG TAB PO SCH (06:00)
[2021-11-04] MEDS: GLUCERNA 1.5 CAL 1,000 ML BOT FT SCH ×3 (08:25→13:46)
[2021-11-04] MEDS: DULERA 200/5 (MOMETASONE/FORMOTEROL) INHALER IH SCH (09:00)
[2021-11-04] MEDS: ASPIRIN EC 81 MG TAB PO SCH (09:00)
[2021-11-04 09:06] LABS: Absolute Lymphocytes (CBC) 1.2 K/uL (0.7-4.9); Hematocrit 36.7 % (39.6-49.0); Lymphocytes % 10.9 % (15.3-44.8); MCV 93.5 fL (80-100); MPV 8.2 fL (7.6-11.3); RBC Red Blood Cell Count 3.93 M/uL (4.33-5.43)
[2021-11-04 09:18] LABS: Potassium 4.3 mmol/L (3.5-5.1)
[2021-11-04] MEDS: AMIODARONE HCL 200 MG TAB PO SCH (10:00)
[2021-11-04] MEDS: PANTOPRAZOLE 40MG TABLET PO SCH (10:00)
[2021-11-04] MEDS: FOLIC ACID 1 MG TABLET PO SCH (10:00)
[2021-11-04] MEDS: APIXABAN 5 MG TABLET PO SCH (10:00)
[2021-11-04] MEDS: PREGABALIN 75 MG CAP PO SCH ×2 (10:00→13:46)
[2021-11-04] MEDS: TAMSULOSIN 0.4 MG SR CAP PO SCH (10:00)
[2021-11-04 11:34] VITALS: BP 155/76; TEMP 97
[2021-11-04] MEDS ORDERED: NA CHLORIDE 0.9% 500 ML IV ONE (14:47)
--- NOTE | 2021-11-04 15:21 | P.DS ---
Admission Date: 10/21/21 Discharge Date: 11/04/21 Disposition: TRANSFER TO INPATIENT REHAB Discharge Condition: FAIR Reason for Admission: Atrial fibrillation history of stroke Consultations: Neurology-Dr. Sanchez Cardiology-Dr. Brandon. 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 Patient reports that he started experiencing slurred speech and was also too weak to do much. He ignored it and it improved. He reported that the aphasia returned so he called his son who brought him to the ED to be evaluated. Brain CT, head/neck CT angio negative. Patient was recently admitted and treated here for GIB (discharged 5 days ago). His hemoglobin remained stable and he was discharged with antibiotics and protonix. Hemoglobin remains stable today. He denies any rectal bleeding/bloody bowel movements since discharge. He was given pepcid, folic acid, fluids, and 324 aspirin in ED. His slurred speech resolved in the ED. He denied history of CVA. He was admitted for further management of CVA rule out. Hospital Course: Patient admitted to the medical floor. MRI of the brain: acute CVA in the right deepak. He was seen in consultation by cardiology and neurology. Patient started on aspirin and Plavix initially. His atrial fibrillation became rapid. Seen by cardiology and started on sotalol and metoprolol. Sotalol later changed to amiodarone. Patient became orthostatic. Metoprolol discontinued. Now on amiodarone only Seen by speech and modified barium swallow done which showed significant dysphagia. 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 Speech therapy recommended n.p.o. and alternate form of feeding. General surgery Dr. Mills consulted. Dr. Mills placed PEG tube.. Patient noted to have multiple gastric ulcers. Biopsies taken for histology and to rule out Helicobacter infection. Biopsies showed chronic gastritis. No Helicobacter identified. He tolerated PEG tube feeding. Patient is high risk for subsequent CVA given history of A. fib and stroke but high risk for anticoagulation due to recent GI bleed. Patient had a significant diverticular bleed the week before presentation. Dr. Brandon recommended anticoagulation for secondary stroke prophylaxis despite recent history of GI bleed given the high risk of acute stroke within the next [address] Mills agreed with a trial of anticoagulation Patient's son was updated. Son agreed to a trial of anticoagulation. Patient started on heparin drip, transitioned to Coumadin with no active bleeding. Coumadin changed to Eliquis which he also tolerated. Hemoccult positive but no gross bleeding. He may need watchman's procedure/left atrial appendage closure. Dr. Brandon plan to follow-up with him as an outpatient for evaluation. Echocardiogram showed normal EF, no cardiac thrombus. Patient is accepted to [facility] for acute rehab. Vital Signs/Physical Exam: Temp Pulse Resp BP Pulse Ox 97.0 F 73 16 155/76 H 96 11/04/21 11:33 11/04/21 11:33 11/04/21 11:33 11/04/21 11:33 11/04/21 11:33 General: Alert, In no apparent distress, Oriented x3 HEENT: Mucous membr. moist/pink Neck: JVD not distended Respiratory: Clear to auscultation bilaterally, Normal air movement Cardiovascular: No edema, Normal S1 S2, Irregular heart rate/rhythm Gastrointestinal: Soft and benign, Non-distended, No tenderness Musculoskeletal: No swelling Integumentary: No rashes Neurological: Normal speech, Normal strength at 5/5 x4 extr Laboratory Data at Discharge: WBC 11.10 K/uL (4.3-10.9) H 11/04/21 08:32 Hgb 12.5 g/dL (13.6-17.9) L 11/04/21 08:32 Hct 36.7 % (39.6-49.0) L 11/04/21 08:32 Plt Count 379 K/uL (152-406) 11/04/21 08:32 PT 22.8 SECONDS (9.5-12.5) H 10/29/21 03:09 INR 2.04 10/29/21 03:09 APTT Cancelled 10/28/21 06:00 Sodium 131 mmol/L (136-145) L 11/04/21 08:32 Potassium 4.3 mmol/L (3.5-5.1) 11/04/21 08:32 BUN 30 mg/dL (7-18) H 11/04/21 08:32 Creatinine 0.98 mg/dL (0.55-1.3) 11/04/21 08:32 Glucose 193 mg/dL (74-106) H 11/04/21 08:32 Phosphorus 2.6 mg/dL (2.5-4.9) 10/29/21 15:36 Magnesium 1.9 mg/dL (1.8-2.4) 11/02/21 02:54 Total Bilirubin 0.4 mg/dL (0.2-1.0) 10/21/21 19:45 AST 12 U/L (15-37) L 10/21/21 19:45 ALT 19 U/L (12-78) 10/21/21 19:45 Alkaline Phosphatase 72 U/L (45-117) 10/21/21 19:45 Triglycerides 77 mg/dL (<150) 10/22/21 05:09 Cholesterol 128 mg/dL (<200) 10/22/21 05:09 HDL Cholesterol 49 mg/dL (40-60) 10/22/21 05:09 Cholesterol/HDL Ratio 2.61 10/22/21 05:09 Home Medications: Duloxetine HCl [Cymbalta] 60 mg PO BEDTIME 11/19/12 Pregabalin [Lyrica*] 75 mg PO QID 11/19/12 Sitagliptin Phos/Metformin HCl [Janumet 50-1,000 mg Tablet] 1 each PO BID 11/19/12 Tamsulosin [Flomax*] 0.4 mg PO DAILY 11/19/12 Valacyclovir [Valtrex*] 500 mg PO BEDTIME 11/19/12 Levothyroxine [Synthroid*] 125 mcg PO [id number] 10/22/21 Amiodarone HCl [Cordarone*] 400 mg PO BID tab 11/04/21 Apixaban [Eliquis] 5 mg PO BID 11/04/21 Aspirin [Aspirin EC 81 MG] 81 mg PO DAILY #30 tab 11/04/21 Atorvastatin Calcium [Lipitor] 40 mg PO BEDTIME tab 11/04/21 Folic Acid 1 mg PO DAILY #30 tab 11/04/21 Glucerna 1.5 Nando 237 ml FT 5XD bot 11/04/21 Insulin -Regular Human [Novolin -R*] See Protocol SQ AC ml 11/04/21 Mometasone/Formoterol [Dulera 200 Mcg/5 Mcg Inhaler] 2 puff IH BID inhaler 11/04/21 Pantoprazole [Protonix Tab*] 40 mg PO DAILY tab 11/04/21 New Medications: Aspirin [Aspirin EC 81 MG] 81 mg PO DAILY #30 tab Folic Acid 1 mg PO DAILY #30 tab Physician Discharge Instructions: PLEASE COMPLETE GOLD SHEET FOR STROKE PLEASE COMPLETE PATIENT SATISFACTION FOR STROKE Orthostatic precautions Diet: AHA Activity: Fall precautions Followup: Dheeraj Sanchez MD [ASSOCIATE-ACTIVE - CAN ADMIT] - (Within 2 weeks.) Sang Kaiser MD [Primary Care Provider] - Jordan Brandon MD [ACTIVE - CAN ADMIT] - (Within 2 weeks) Time spent managing pt's care (in minutes): 37
== END 2021-11-04 16:52 | DRG 66 ==
LOC: ER 19:28 → ERHOLD 22:34 → 4TH 10-22 15:05
PROVIDERS: ADMIT Internal Medicine; ATTEND Internal Medicine
PROC: 0DH63UZ Insertion of Feeding Device into Stomach, Percutaneous Approach (ICD-10-PCS; 2021-10-24)
PROC: 0DB98ZX Excision of Duodenum, Via Natural or Artificial Opening Endoscopic, Diagnostic (ICD-10-PCS; principal; 2021-10-28)
PROC: 0DB78ZX Excision of Stomach, Pylorus, Via Natural or Artificial Opening Endoscopic, Diagnostic (ICD-10-PCS; 2021-10-28)
DX: I63.9 Cerebral infarction, unspecified (principal); R47.01 Aphasia; I48.0 Paroxysmal atrial fibrillation; E11.65 Type 2 diabetes mellitus with hyperglycemia; K26.9 Duodenal ulcer, unspecified as acute or chronic, without hemorrhage or perforation; K25.9 Gastric ulcer, unspecified as acute or chronic, without hemorrhage or perforation; E03.9 Hypothyroidism, unspecified; I25.10 Atherosclerotic heart disease of native coronary artery without angina pectoris; E78.5 Hyperlipidemia, unspecified; K29.50 Unspecified chronic gastritis without bleeding; I25.9 Chronic ischemic heart disease, unspecified; C02.9 Malignant neoplasm of tongue, unspecified; R29.700 NIHSS score 0; R13.10 Dysphagia, unspecified; R47.81 Slurred speech; Z95.1 Presence of aortocoronary bypass graft; Z60.2 Problems related to living alone; Z79.82 Long term (current) use of aspirin; Z79.02 Long term (current) use of antithrombotics/antiplatelets; Z79.84 Long term (current) use of oral hypoglycemic drugs; Z90.49 Acquired absence of other specified parts of digestive tract; Z87.891 Personal history of nicotine dependence; Z79.899 Other long term (current) drug therapy; Z79.890 Hormone replacement therapy; Z20.822 Contact with and (suspected) exposure to COVID-19
CPT/HCPCS: 36415; 70450; 70496; 70498; 70544; 70549; 70553; 71045; 74022; 74230; 80048; 80061; 80076; 81003; 82274; 82947; 83036; 83605; 83735; 83880; 84100; 84145; 84436; 84439; 84443; 84484; 85025; 85049; 85610; 85652; 85730; 86140; 87811; 88305; 88312; 92526; 92610; 92611; 93005; 93306; 93880; 94640; 96365; 96375; 97110; 97116; 97161; 97164; 97165; 97530; 99285; A9577; C9113; J0282; J0690; J1644; J1815; J2001; J2250; J2704; J3475; J3480; J3535; J7030; J7060; J7605; Q9967; U0003

== ENCOUNTER 2022-01-09 09:18 | Emergency (ER) | payer OTHER ==
--- OUTSIDE RECORDS SUMMARY | 2022-01-09 09:21 | XMS REPORT | Clinical Summary ---
:1935 Author Organization [facility] Address [address] [place] [address] Care Team Providers Name Role Phone Arjun Soto MD, Newton Araujo Primary Care Provider [phone] Anton Dye MD Unavailable Unavailable Anton [...] Tobacco Use Types Packs/Day Years Used Date Smoking Tobacco: Never Assessed Sex Assigned at Date Recorded Not on file Obstetrics History Last Filed Vital Signs Not on file Plan of Treatment Health Maintenance Due Date Last Done Comments COVID-19 Vaccination (#1) 1935 Results Not on fileafter 01/09/2021 Insurance Payer Benefit Plan Subscriber ID Effective Phone Address Typ e / Group Dates MEDICARE MEDICARE PART [id number] 2001-Pres [phone] [facility] Medicare A AND B ent [id number] [employer] [address] [place] [address] FOR [id number] 2015-Pre [address] [employer] [place] Other [address] Mike Peña Personal/Family Self 1935 [address] [phone] [facility] [place] ([place]) [place] [address] Mike Peña Personal/Family Self 1935 [address] ([place]) [place] [address] Care Teams Head Tennis Professional Relationship Specialty Start Date End Date Newton Díaz Jr., MD PCP - General 04/17/15 [facility] [place] [address] Anton Dye MD PCP - External Referring 08/17/12 Anton Dye MD PCP - External Follow Up A Emma Norman MD Physician 04/24/15 Leslie5 Joey Jett [facility] [address] [place] [id number] Romina Giordano MD Physician 04/24/[address] [place] [id number] Pipo Dominguez MD Physician 04/24/[address] [place] [id number] Sang Domínguez Jr., Physician 04/24/15 Hong Whittaker, REINA Nurse Practitioner 04/24/[address] [place] [id number] Haley Cisneros [employer] Tufting Supervisor 04/24/[address] [place] [address] [address] [place] [address] Newton Díaz Jr., MD Physician 04/24/[address] [place] [id number]
--- OUTSIDE RECORDS SUMMARY | 2022-01-09 09:24 | XMS REPORT | Continuity of Care Document ---
:1935 Author Organization [facility] t Address [address] [place] [address] Care Team Providers Name Role Phone Arjun Soto MD, Newton Araujo Primary Care Physician [phone] JAROCHO SANCHEZ NATASHA Attending Clinician Unavailable Stephon Almonte Rahil Attending Clinician Unavailable OSKAR MOSS Attending Clinician Unavailable Jordan Brandon Attending Clinician Unavailable Johnana Zapata RN Attending Clinician Unavailable Oskar Moss MD Attending Clinician Samir Zamorano MD Attending Clinician CHEYANNE YEN Attending Clinician Unavailable KAVYA YEN Attending Clinician Unavailable COLIN ZULETA Attending Clinician Unavailable JAROCHO SANCHEZ NATASHA Admitting Clinician Unavailable Stephon [place] Rahil Admitting Clinician Unavailable SAMIR ZAMORANO Admitting Clinician Unavailable Jordan Brandon Admitting Clinician Unavailable Samir Zamorano MD Admitting Clinician KAVYA YEN Admitting Clinician Unavailable COLIN ZULETA Admitting Clinician Unavailable Payers Payer Name Policy Type Policy Number Effective Date Expiration Date Alonzo alberts [facility] [id number] TRI TRI [id number] MEDICARE PART A [id number] 2001 \\T\\ B 00:00:00 FOR LIFE [id number] 2016 00:00:00 MEDICARE PART A [id number] 2001 AND B 00:00:00 FOR LIFE [id number] 2015 00:00:00 Problems Condition Condition Condition Status Onset Resolution Last Treating Co mments Source Name Details Category Date Date Treatment Clinician Date Orthostati Orthostati Disease Active U nivers c syncope c syncope 2-27 ity of 00:00: [place] [facility] Symptomati Symptomati Disease Active U nivers c anemia c anemia 2-27 ity of 00:00: [place] [facility] Iron Iron Disease Active Univers deficiency deficiency 2-27 it y of anemia due [place] chronic 00 Me dical blood loss blood loss Br anch Melena Melena Disease Active Univers 2-26 ity of 00:00: [place] [facility] GI bleed GI bleed Disease [facility] 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 [facility] Hypothyroi Hypothyroi Disease Active [facility] dism dism 3-[facility] Acute Acute Disease Active [facility] blood loss blood loss 3- [facility] anemia anemia 00:00: Medical 00 Center Lower Lower Disease Active [facility] gastrointe gastrointe 3-01 [facility] stinal stinal 00:00: Medical bleeding bleeding 00 Center RAHUL (acute RAHUL (acute Disease Active [facility] kidney kidney [facility] injury) injury) 00:00: Medical 00 Center 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 0-11 ity of nodules nodules 00:00: [address] Branch Primary Primary Disease Active 2016-02 Univers hypothyroi hypothyroi 0-11 it y of dism dism 00:00: [place] 00 [facility] 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 00:00: [place] [address] MD [facility] Allergies, Adverse Reactions, Alerts Allergy Allergy Status Severity Reaction(s) Onset Inactive Treating Comm ents Source Name Type Date Date Clinician No Known DA Active U 2021-02 [facility] Allergie 0-31 Clear s 00:00: [address] NO KNOWN Drug Active Univers ALLERGIE Class ity of S [facility] Family History Family Member Diagnosis Comments Start Date Stop Date Source Natural mother Early [facility] Natural mother Heart disease [facility] Paternal grandmother Diabetes [facility] Natural sister Diabetes [facility] Social History Social Habit Start Date Stop Date Quantity Comments Source Exposure to Not sure University of SARS-CoV-2 [place] [facility] (event) Branch History SDOH [facility] Alcohol Frequency [facility] History SDOH [facility] Alcohol Std Medical Cente r Drinks History SDOH [facility] Alcohol Binge Medical [address] ter Alcohol intake 2017-11-18 2017-11-18 [facility] ([facility] Alcohol Comment 2017-11-16 2017-11-16 once in a while [facility] Tobacco use and 2017-04-15 2017-04-[address] [facility] [address] [facility] exposure 00:00:00 00:00:00 [facility] Sex Assigned At [address] [facility] 00:00:00 00:00:00 [facility] Smoking Status Start Date Stop Date Source Former smoker 2020-04-13 00:00:00 2020-04-13 00:00:00 [facility] Medications Ordered Filled Start Stop Current Ordering Indication Dosage Frequency Signature Comments Components Source Medication Medication Date Date Medication? Clinician (SIG) Name Name lactulose Yes 45mL 45 mL, Univer s (CEPHULAC) 3 Oral, ity of solution 45 15:00: [place] 00 First dose Medical (after Branch last modificati on) on 3/1/21 at 0900, Until Discontinu ed, Routine iron [...] Sun Medi alphonso 0.9% (NS) 04/14/20 at [facility] ch 100 mL IV 1400, 100 piggyback mL valACYclovi Yes 500mg Take 500 U nivers r 500 mg 2-28 mg by ity of tablet 18:10: mouth. [address] tamsulosin Yes .4mg Take 0.4 Uni vers 0.4 mg 24 2-28 mg by ity of hr capsule 18:10: mouth. [address] valACYclovi Yes 500mg Take 500 U nivers r 500 mg 2-28 mg by ity of tablet 18:10: mouth. [address] tamsulosin Yes .4mg Take 0.4 Uni vers 0.4 mg 24 2-28 mg by ity of hr capsule 18:10: mouth. [address] aspirin 81 2020- No 81mg Take 81 mg Univers mg chewable 04-14 by mouth. it y of tablet 16:52: 00:00 [place] 24 :00 [facility] sitagliptan 2020- No 1{tbl} Take 1 U nivers -metformin 04-14 tablet by ity of 50-500 mg 16:52: 00:00 mouth 2 [place] per tablet 24 :00 (two) Medical times Branch daily with meals. magnesium 2020- No 400mg Take 400 Un stephanie oxide 400 04-14- mg by ity of mg tablet 16:52: 00:00 mouth 2 [place] 24 :00 (two) Medical times Branch daily. omeprazole 2020- No 40mg Take 40 mg Univers 40 mg 04-14 by mouth. ity of capsule 16:52: 00:00 [place] 24 :00 Medical Branch NaCl 0.9% Yes 1000mL at 75 Unive rs (NS) IV 2-28 mL/hr, IV ity of infusion 15:30: Infusion, [place] 1,000 mL 00 CONTINUOUS Medic al , Starting Branch Balsam 04/14/20 at 0930, Until Discontinu ed, Routine atorvastati Yes 40mg 40 mg, Univ ers n (LIPITOR) 04-14 Oral, QHS, it y of tablet 40 03:00: [place] dose [place] mg 00 on [facility] Medical 04/13/20 at Branch 2100, Until Discontinu ed, Routine ferrous 2020- No [id number] 325mg Take 1 Uni vers sulfate 04-14-25 tablet by ity of (IRON) 325 00:00: 05:59 mouth [place] mg (65 mg 00 :00 every Medical iron) other day Branch tablet for 135 doses. ferrous 2020- No [id number] 325mg Take 1 Uni vers sulfate 04-14-25 tablet by ity of (IRON) 325 00:00: 05:59 mouth [place] mg (65 mg 00 :00 every Medical iron) other day Branch tablet for 135 doses. pantoprazol 2020- No [id number] 40mg Take 1 Univers e 40 mg EC 04-14 tablet by ity of tablet 00:00: 04:59 mouth 2 [place] 00 :00 (two) Medical times Branch daily for 30 days. pantoprazol 2020- No [id number] 40mg Take 1 Univers e 40 mg EC 04-14-31 tablet by ity of tablet 00:00: 04:59 mouth 2 [place] 00 :00 (two) Medical times Branch daily for 30 days. lactulose 2020- No 30mL 30 mL, Unive rs (CEPHULAC) 04-13 Oral, ity of solution 30 17:15: 15:07 DAILY, [place] mL 00 :10 First dose Medical on [facility] Branch 04/13/20 at 1115, Until Discontinu ed, Routine valACYclovi 2021-0 Yes 500mg 500 mg, Un stephanie r (VALTREX) 04-13 Oral, ity of tablet 500 15:00: DAILY, [place] mg 00 First dose Medical on [facility] Branch 04/13/20 at 0900, Until Discontinu ed, [place]ORE[place] tamsulosin Yes .4mg 0.4 mg, Univ ers (FLOMAX) 04-13 Oral, ity of capsule 0.4 15:00: DAILY, [place] mg 00 First dose Medical on [facility] Branch 04/13/20 at 0900, Until Discontinu ed, Routine DULoxetine Yes 60mg 60 mg, Unive rs (CYMBALTA) 04-13 Oral, ity of capsule 60 15:00: DAILY, [place] mg 00 First dose Medical on [facility] Branch 04/13/20 at 0900, Until Discontinu ed, Routine Sliding Yes Subcutaneo Univ ers Scale 04-13 us, TID ity of Insulin - 14:00: MEALS+HS, [place] Lispro 00 First dose Medical (HumaLOG) + on [facility] Branch Fsbg 04/13/20 at Testing 0800, Until Discontinu ed, Routine levothyroxi Yes 100ug 100 mcg, U nivers ne 04-13 Oral, ity of (SYNTHROID) 12:00: QAM-0600, [place] tablet 100 00 First dose Med ical mcg on [facility] Branch 04/13/20 at 0600, Until Discontinu ed, Routine KCL 2020- No 40meq 40 mEq, Univers (KLOR-CON 04-13 Oral, ity of M20) tablet 08:30: 07:59 ONCE, 1 [place] 40 mEq 00 :00 dose, [facility] Medical 04/13/20 at Branch 0230, Routine KCL 0 2020- No 40meq 40 mEq, IV Unive rs (POTASSIUM 04-13 Piggyback, it y of CHLORIDE) 08:30: 11:04 ONCE, 1 [place] 40 mEq in 00 :00 dose, Sat Medic al NaCl 0.9% 04/13/20 at [facility] ch (NS) 0230, 250 piggyback mL pantoprazol Yes 40mg 40 mg, IV U nivers e 04-13 Piggyback, ity of (PROTONIX) 06:00: Q12H, [place] 40 mg in 00 First dose Medic al NaCl 0.9% on Sat Branch (NS) 100 mL 04/13/20 at MINI-BAG 0000, Until Discontinu ed, 100 mL glucagon Yes 1mg 1 mg, Univers (GLUCAGEN 04-13 Intramuscu ity of DIAGNOSTIC 05:40: [place], PRN, [place] KIT) 07 Starting Medical injection 1 Fri Branch mg 04/12/20 at 2340, Until Discontinu ed, LORENA, Blood Glucose < or = 70 mg/dL and patient is unable to swallow or has mental changes. dextrose 50 Yes 25mL 25 mL, Univ ers % in water 04-13 Slow IV ity of (D50W) 05:40: Push, PRN, [place] injection 07 Starting Medica l 25 mL Fri Branch 04/12/20 at 2340, Until Discontinu ed, LORENA, Blood Glucose < or = 70 mg/dL and patient is unable to swallow or has mental status changes. pregabalin 75mg Take 75 mg Univers 75 mg 04-13 by mouth. ity of capsule 05:35: 00:00 [place] 21 :00 Medical Branch omeprazole 2017-02 Yes 40mg Take 40 mg U nivers (PriLOSEC) 2-04 by mouth. ity of 40 MG 14:41: [place] hardik [facility] levothyroxi 2017-02 Yes Take by Uni vers ne 2-04 mouth. ity of (SYNTHROID, 14:41: Gillian LEVOTHROID) Anastasiia JACOME 100 mcg Jacklyn tablet [facility] aspirin 81 2017-02 Yes 81mg Chew 81 Univ ers mg chewable 2-04 mg. ity of tablet 14:41: [place] Anastasiia [facility] DULoxetine 2017-02 Yes 60mg Take 60 mg U nivers (CYMBALTA) 2-04 by mouth. ity of 60 mg 14:41: Gillian [facility] pregabalin 2017-02 Yes 75mg Take 75 mg U nivers (LYRICA) 75 2-04 by mouth. ity of mg capsule 14:41: [place] [address] MD [facility] magnesium 2017-02 Yes 400mg Take 400 Uni vers oxide 2-04 mg by ity of (MAOX) 400 14:41: mouth. [place] mg tablet 18 [facility] levothyroxi 2017-02 Yes Take by Uni vers ne 2-04 mouth. ity of (SYNTHROID, 14:41: [place] LEVOTHROID) 18 100 mcg Anderso tablet [facility] aspirin 81 2017-02 Yes 81mg Chew 81 Univ ers mg chewable 2-04 mg. ity of tablet 14:41: Gillian 18 [facility] DULoxetine 2017-02 Yes 60mg Take 60 mg U nivers (CYMBALTA) 2-04 by mouth. ity of 60 mg 14:41: [place] capsule 18 [facility] pregabalin 2017-02 Yes 75mg Take 75 mg U nivers (LYRICA) 75 2-04 by mouth. ity of mg capsule 14:41: [place] Anastasiia JACOME [facility] magnesium 2017-02 Yes 400mg Take 400 Uni vers oxide 2-04 mg by ity of (MAOX) 400 14:41: mouth. [place] mg tablet 18 [facility] omeprazole 2017-02 Yes 40mg Take 40 mg U nivers (PriLOSEC) 2-04 by mouth. ity of 40 MG 14:41: [place] capsule 18 [facility] levothyroxi 2017-02 Yes Take by Uni vers ne 2-04 mouth. ity of (SYNTHROID, 14:41: [place] LEVOTHROID) 18 100 mcg Anderso tablet [facility] aspirin 81 2017-02 Yes 81mg Chew 81 Univ ers mg chewable 2-04 mg. ity of tablet 14:41: [place] Laurent MD [facility] DULoxetine 2017-02 Yes 60mg Take 60 mg U nivers (CYMBALTA) 2-04 by mouth. ity of 60 mg 14:41: [place] capsule 18 [facility] pregabalin 2017-02 Yes 75mg Take 75 mg U nivers (LYRICA) 75 2-04 by mouth. ity of mg capsule 14:41: Gillian Laurent MD [facility] magnesium 2017- Yes 400mg Take 400 Uni vers oxide 2-04 mg by ity of (MAOX) 400 14:41: mouth. [place] mg tablet 18 [facility] omeprazole 2017-02 Yes 40mg Take 40 mg U nivers (PriLOSEC) 2-04 by mouth. ity of 40 MG 14:41: [place] capsule 18 [facility] levothyroxi 2017-02 Yes Take by Uni vers ne 2-04 mouth. ity of (SYNTHROID, 14:41: [place] LEVOTHROID) 18 100 mcg [facility] tablet [facility] aspirin 81 2017-02 Yes 81mg Chew 81 Univ ers mg chewable 2-04 mg. ity of tablet 14:41: [place] 18 [facility] DULoxetine 2017-02 Yes 60mg Take 60 mg U nivers (CYMBALTA) 2-04 by mouth. ity of 60 mg 14:41: [place] hardik 18 [facility] pregabalin 2017-02 Yes 75mg Take 75 mg U nivers (LYRICA) 75 2-04 by mouth. ity of mg capsule 14:41: [place] [address] [facility] magnesium 2017-02 Yes 400mg Take 400 Uni vers oxide 2-04 mg by ity of (MAOX) 400 14:41: mouth. [place] mg tablet 18 [facility] omeprazole 2017-02 Yes 40mg Take 40 mg U nivers (PriLOSEC) 2-04 by mouth. ity of 40 MG 14:41: [place] capsule 18 [facility] sitaGLIPtin 2017-02 Yes Take by Uni vers -metFORMIN 2-04 mouth. ity of (JANUMET) 11:58: [place] 50 mg-1,000 17 MD mg per Anderso tablet [facility] sitaGLIPtin 2017-02 Yes Take by Uni vers -metFORMIN 2-04 mouth. ity of (JANUMET) 11:58: [place] 50 mg-1,000 17 MD mg per Anderso tablet [facility] sitaGLIPtin 2017-02 Yes Take by Uni vers -metFORMIN 2-04 mouth. ity of (JANUMET) 11:58: [place] 50 mg-1,000 17 MD mg per Anderso tablet [facility] sitaGLIPtin 2017-02 Yes Take by Uni vers -metFORMIN 2-04 mouth. ity of (JANUMET) 11:58: [place] 50 mg-1,000 17 MD mg per Anderso tablet [facility] atorvastati 2017-02 Yes hyperlipide 40mg QD [...] MG 13:48: mouth Medical tablet 51 daily. [place] tamsulosin 2017-02 Yes benign .4mg QD Take 0.[address] (FLOMAX) 0-04 prostatic mg by [facility] 0.4 mg Cp24 13:48: hyperplasia mouth Medical 24 hr 51 with lower daily. [place] capsule urinary tract sx magnesium 2017-02 Yes [...] 51 disease Center midodrine 2017-02 Yes 10mg [id number] Take [address] [facility] [facility] (PROAMATINE 0-04 [id number] by mouth 3 [facility] ) 10 MG [...] MG 13:48: mouth Medical tablet 51 daily. [place] tamsulosin 2017-02 Yes benign .4mg QD Take [...] 51 disease Center midodrine 2017-02 Yes 10mg Q.[id number] Take [address] [facility] [facility] (PROAMATINE 0-04 [id number] by mouth 3 [facility] ) 10 MG [...] MG 13:48: mouth Medical tablet 51 daily. [place] tamsulosin 2017-02 Yes benign .4mg QD Take 0.[address] (FLOMAX) 0-04 prostatic mg by [facility] 0.4 mg Cp24 13:48: hyperplasia mouth Medical 24 hr 51 with lower daily. [place] capsule urinary tract sx magnesium 2017-02 Yes [...] 51 disease Center midodrine 2017-02 Yes 10mg Q.[id number] Take [address] (PROAMATINE 0-04 [id number] by mouth 3 [facility] ) 10 MG [...] MG 13:48: mouth Medical tablet 51 daily. [place] tamsulosin 2017-02 Yes benign .4mg QD Take [...] 51 disease Center midodrine 2017-02 Yes 10mg Q.[id number] Take [address] (PROAMATINE 0-04 [id number] by mouth 3 [facility] ) 10 MG 13:48: 3D (three) Medical tablet 51 times Center daily. fluticasone 2017-02 Yes allergic 2{spray QD [address] (VERAMYST) 0-04 rhinitis } by Nasal L ukes 27.5 13:48: route Medical mcg/actuati 51 daily. Center on nasal spray valACYclovi 2016-02 Yes 500mg Take 500 U nivers r (VALTREX) 1-22 mg by ity of 500 mg 12:59: mouth. [place] tablet 38 [facility] tamsulosin 2016-02 Yes .4mg Take 0.4 Uni vers (FLOMAX) 1-22 mg by ity of 0.4 mg 24 12:59: mouth. [place] hr capsule 38 [facility] valACYclovi 2016-02 Yes 500mg Take 500 U nivers r (VALTREX) 1-22 mg by ity of 500 mg 12:59: mouth. [place] tablet 38 [facility] tamsulosin 2016-02 Yes .4mg Take 0.4 Uni vers (FLOMAX) 1-22 mg by ity of 0.4 mg 24 12:59: mouth. [place] hr capsule 38 [facility] valACYclovi 2016-02 Yes 500mg Take 500 U nivers r (VALTREX) 1-22 mg by ity of 500 mg 12:59: mouth. [place] tablet 38 [facility] tamsulosin 2016-02 Yes .4mg Take 0.4 Uni vers (FLOMAX) 1-22 mg by ity of 0.4 mg 24 12:59: mouth. [place] hr capsule 38 [facility] valACYclovi 2016-02 Yes 500mg Take 500 U nivers r (VALTREX) 1-22 mg by ity of 500 mg 12:59: mouth. [place] tablet 38 [facility] tamsulosin 2016-02 Yes .4mg Take 0.4 Uni vers (FLOMAX) 1-22 mg by ity of 0.4 mg 24 12:59: mouth. [place] hr capsule 38 [facility] atorvastati 2016-02 Yes Univer s n (LIPITOR) 0-28 ity of 10 mg 00:00: [place] tablet 00 [facility] atorvastati 2016-02 Yes Univer s n (LIPITOR) 0-28 ity of 10 mg 00:00: [place] tablet 00 [facility] atorvastati 2016-02 Yes Univer s n (LIPITOR) 0-28 ity of 10 mg 00:00: [place] tablet 00 [facility] atorvastati 2016-02 Yes Univer s n (LIPITOR) 0 ity of 10 mg 00:00: [place] tablet 00 MD Jacklyn braden [facility] levothyroxi Yes Univer s ne 100 mcg 8 ity of tablet 00:00: Medical [place] levothyroxi Yes Univer s ne 100 mcg 8 ity of tablet 00:00: Medical [place] midodrine 2020- No 10mg 10 mg 3 Univ ers 10 mg 09-18 (three) ity of tablet 00:00: 00:00 times [place] 00 :00 daily. Medical Branch atorvastati Yes 40mg 40 mg at Un stephanie n 40 mg 7-30 bedtime. ity of tablet 00:00: [facility] DULoxetine Yes Univers 60 mg 7-30 ity of capsule 00:00: [facility] atorvastati Yes 40mg 40 mg at Un stephanie n 40 mg 7-30 bedtime. ity of tablet 00:00: [facility] DULoxetine Yes Univers 60 mg 7-30 ity of capsule 00:00: [facility] VERAMYST Yes Univers 27.5 1-26 ity of mcg/actuati 00:00: [place] on nasal 00 MD spray [facility] [place] VERAMYST Yes Univers 27.5 1-26 ity of mcg/actuati 00:00: [place] on nasal 00 [facility] [place] VERAMYST Yes Univers 27.5 1-26 ity of mcg/actuati 00:00: [place] on nasal 00 [email or web address] VERAMYST Yes Univers 27.5 1-26 ity of mcg/actuati 00:00: [place] on nasal 00 MD spray [facility] [place] fluticasone 2020- Unive rs (VERAMYST) 03-12 ity of 27.5 00:00: 00:00 [place] mcg/actuati 00 :00 Medical on nasal Branch spray Vital Signs Vital Name Observation Time Observation Value Comments Source Systolic blood 2020-04-14 17:03:00 143 mm[Hg] Univer sity of pressure [facility] Diastolic blood 2020-04-14 17:03:00 79 mm[Hg] [facility] Heart rate 2020-04-14 17:03:00 83 /min [facility] Body temperature 2020-04-14 17:03:00 35.72 Katiana [facility] Respiratory rate 2020-04-14 17:03:00 16 /min [facility] Oxygen saturation in 2020-04-14 17:03:00 98 /min [facility] Arterial blood by [facility] Pulse oximetry Branch Body weight 2020-04-13 05:24:00 83 kg [facility] BMI 2020-04-13 05:24:00 24.14 kg/m2 [facility] Procedures Procedure Date / Time Performing Clinician Source Performed [id number] 2021-12-17 00:00:00 MIGDALIA [facility] [id number] 2021-12-17 00:00:00 MIGDALIA WILLIS [facility] POCT GLUCOSE 2020-04-14 13:32:00 Isa [facility] (AUTOMATED) [facility] CBC WITHOUT DIFF 2020-04-14 11:19:00 Dorota [facility] BASIC METABOLIC PANEL 2020-04-14 11:18:00 Siri Green [facility] (NA, K, CL, CO2, Medical Branch GLUCOSE, BUN, CREATININE, CA) FIBRINOGEN 2020-04-14 11:18:00 Omar Raya [facility] MAGNESIUM 2020-04-14 11:18:00 Siri Green [facility] POCT GLUCOSE 2020-04-14 04:02:00 Isa [facility] (AUTOMATED) [facility] PREPARE PACKED RBC 2020-04-13 23:53:17 Siri Green [facility] POCT GLUCOSE 2020-04-13 22:56:00 Isa [facility] (AUTOMATED) [facility] CBC WITHOUT DIFF 2020-04-13 20:31:00 Dorota [facility] TRANSFUSE PACKED RBC 2020-04-13 19:01:18 Raya, [facility] POCT GLUCOSE 2020-04-13 18:26:00 Helene [facility] (AUTOMATED) [facility] PREPARE PACKED RBC 2020-04-13 15:07:12 Dorota [facility] POCT GLUCOSE 2020-04-13 14:11:00 Isa [facility] (AUTOMATED) [facility] TROPONIN I 2020-04-13 12:20:[address] [facility] CBC WITHOUT DIFF 2020-04-13 12:20:00 Dorota [facility] TRANSFUSE PACKED RBC 2020-04-13 10:58:26 Dorota [facility] ABORH CONFIRMATION 2020-04-13 07:07:00 Samir Zamorano [facility] HB ABO GROUPING 2020-04-13 06:20:[address] [facility] COMP. METABOLIC PANEL 2020-04-13 06:19:00 Dorota [facility] ([id number]) [facility] IRON PANEL 2020-04-13 06:19:[address] [facility] CBC WITH DIFF 2020-04-13 06:19:[address] [facility] GLYCOSYLATED HEMOGLOBIN 2020-04-13 06:19:00 Dorota [facility] (A1C) [facility] PROTHROMBIN TIME / INR 2020-04-13 06:19:00 Dorota [facility] ACTIVATED PARTIAL 2020-04-13 06:19:00 Dorota [facility] THRMPLAS JOSE [facility] FERRITIN SERUM 2020-04-13 06:19:[address] [facility] TROPONIN I 2020-04-13 06:19:[address] [facility] Plan of Care Planned Activity Planned Date Details Comments Source Future Scheduled 2021-10-25 COVID-19 Vaccination [facility] [place] Test 10:52:35 (#1) [code = COVID-19 [facility] (#1)] Center Future Scheduled 2021-10-25 COVID-19 Vaccination [facility] [place] Test 10:52:35 (#1) [code = COVID-19 MD [facility] Vaccination (#1)] Center Future Scheduled 2021-08-20 COVID-19 Vaccination [facility] [place] Test 03:35:26 (#1) [code = COVID-19 MD [facility] Vaccination (#1)] Center Future Scheduled 2021-08-20 COVID-19 Vaccination [facility] [place] Test 03:35:26 (#1) [code = COVID-19 MD [facility] Vaccination (#1)] Center Encounters Start End Encounter Admission Attending Care Care Encounter Source Date/Time Date/Time Type Type Clinicians Facility Department ID 2021-10-30 Outpatient 3 DANIEL, E[facility] CV[facility] [id number] [facility] 12:09:13 [facility]CHO [facility] [place] 2021-10-29 Outpatient 3 Gage ENCPL CVA [id number] [facility] 09:02:33 Stephon [facility] [place] 2020-12-15 Inpatient U [facility] [id number] [facility] [place] 01:47:44 OSKAR ity of [facility] 2021-12-17 2021-12-17 Inpatient [id number] 05:33:00 22:00:00 Jordan 59 [facility] 2021-11-04 2021-11-17 Inpatient 3 Gage ENCPL CVA [id number] [facility] 19:52:00 13:15:00 Stephon [facility] [place] 2020-04-16 2020-04-16 Transition Marcy Zapata [id number] Univers 00:00:00 00:00:00 of Care Johanna Rand [id number] it y of [employer] [id number] [place] [id number] [address] 2020-04-12 2020-04-14 [facility] [id number] Univers 23:17:00 12:10:00 Encounter Samir Zamorano [id number] ity [facility] [id number] [place] [id number] [place] [id number] Branch 2019-08-30 2019-08-30 Outpatient ASHLEE YEN [facility] [id number] 00:00:00 00:00:00 CHEYANNE braden Results Test Description Test Time Test Comments Results Result Comments Source ACT-ISTAT 2021-12-17 13:29:00 Test Item Value Reference Range Interpretation Comme nts ACT-ISTAT (test code = ACTI) 277 SEC 74-137 H Performed by certified plant technician/control room operator at [facility] GLUCOSE [id number] 11:18:00 Test Item Value Reference Range Interpretation Comments GLUCOSE BEDSIDE (test 145 MG/DL 70-110 H Perfor med by certified code = GLUBED) plant technician/control room operator at [facility] - XR CHEST 1 [id number] 00:00:00 [facility] 1935 Sex: M FAX: Jordan Fernandez MD [phone] [place]: St: [facility] FAX: Kerwin King [phone] -------- Name: NAHUN ACOSTA [facility]ly [facility] : 1935 Age/S: 86/M [address] [place] [address] Unit #: [id number] Loc: [place] [address] Phys: Kerwin King Acct: [id number] Dis Date: Status: ADM IN PHONE #: [phone] Exam Date: 12/17/2021 1524 FAX #: [phone] Reason: WATCHMAN EXAMS: CPT CODE: [id number] XR CHEST 1 V 45495 PROCEDURE INFORMATION: Exam: XR Chest Exam date and time: 12/17/2021 3:22 PM Age: 86 years old Clinical indication: Device placement; Other: Watchman TECHNIQUE: Imaging protocol: Radiologic exam of the chest. Views: 1 view. COMPARISON: DX XR CHEST 2 V 12/15/2021 12:06 PM FINDINGS: Lungs: Mild left retrocardiac opacities, possibly atelectasis or scar. Infiltrate thought to be less likelybut not entirely excluded. Pleural spaces: No pleural effusion. No pneumothorax. Heart/Mediastinum: Changes of CABG. Question left atrial closure device. Vasculature: Atherosclerotic calcifications. Bon es/joints: Partially imaged postoperative change in the cervical spine. IMPRESSION: Mild left retrocardiac opacities, possibly atelectasis or scar. Infiltrate thought to be less likely but not entirely excluded. at 7814 Reported and signed by: Maxim Hernandez M.D. CC: Jordan Brandon MD; Kerwin King Technologist: RT Israel(Micheline) Trnscrd Date/Time/By: 12/17/2021 (1559) : By: [email or web address] Orig Print D/T: S: 12/17/2021 (0657) PAGE 1 Signed ReportPREALBUMIN 2021-12-15 12:54:00 Test Item Value Reference Range Interpretation Comments PREALBUMIN (test code = PREALB) 17.5 mg/dL 16.0-40.0 N BASIC METABOLIC [id number] 12:54:00 Test Item Value Reference Range Interpretation Comments SODIUM (test code = NA) 141 mEq/L 134-147 N POTASSIUM (test code = 3.8 mEq/L 3.4-5.0 N K) CHLORIDE (test code = 106 mEq/L 100-108 N CL) CARBON DIOXIDE (test 28 mEq/l 21-33 N code = CO2) ANION GAP (test code = 10 0-20 N GAP) GLUCOSE (test code = 190 mg/dL 70-110 H GLU) BLOOD UREA NITROGEN 14 mg/dL 7-18 N (test code = BUN) GLOMERULAR FILTRATION 57.5 70-80 L Units of measure = RATE (test code = GFR) ml/mi n/1.73 m2 CREATININE (test code = 1.2 mg/dL 0.6-1.3 N CREAT) CALCIUM (test code = 8.5 mg/dL 8.0-10.5 N CA) PROTHROMBIN [id number] 12:36:00 Test Item Value Reference Range Interpretation Comments PROTHROMBIN TIME 18.1 SECONDS 9.3-12.9 H PATIENT (test code = PTP) INTERNATIONAL NORMAL 1.6 0.8-1.2 H TARGET INR BY RATIO (test code = INDICATIO N Indication INR) INR1. Prophylax is of venous thrombos is 2.0 - 3.0 (orthoped ic surgery), Proph ylaxis of venous throm bosis (other than hig h-risk surgery), Treat ment of Deep Vein Thrombosis/Pulm onary Embolism, Preve ntion of systemic emb olism - Tissue heart va lves, Acute Myocardia l Infarction (to prevent systemic emboli sm), Valvular heart disease, Atrial Fibrillation, Bileaflet mecha nical valve in aortic position.2. Mec hanical prosthetic valv es (high risk), 2. 5 - 3.5 Presence of Lup us Anticoagulant o r Antiphospholipi d Antibodies, Pre vention of systemic emb olism - Acute Myocardia l Infarction (to prevent recurrent infar ct). THROMBOPLASTIN TIME [id number] 12:36:00 Test Item Value Reference Range Interpretation Comments THROMBOPLASTIN TIME 38.7 Seconds 25.0-39.5 N Therape utic Range: PARTIAL (test code = 50.4 - 88.3 Seconds PTT) Effective 05/31/2018 CBC W/AUTO [id number] 12:27:00 Test Item Value Reference Range Interpretation Comments WHITE BLOOD CELL (test code = 7.6 x10 3/uL 4.5-11.0 N WBC) RED BLOOD CELL (test code = 3.99 x10 6/uL 4.00-5.60 L RBC) HEMOGLOBIN (test code = HGB) 11.9 g/dL 12.5-16.9 L HEMATOCRIT (test code = HCT) 37.7 % 37.5-50.7 N MEAN CELL VOLUME (test code = 94.5 fL 81.0-99.0 N MCV) MEAN CELL HGB (test code = MCH) 29.8 pg 27.0-33.0 N MEAN CELL HGB CONCETRATION 31.6 g/dL 33.0-37.0 L (test code = MCHC) RED CELL DISTRIBUTION WIDTH CV 14.3 % 11.5-14.5 N (test code = RDW) RED CELL DISTRIBUTION WIDTH SD 49.2 fL 37.0-54.0 N (test code = RDW-SD) PLATELET COUNT (test code = 313 x10 3/uL 150-400 N PLT) MEAN PLATELET VOLUME (test code 10.0 fL 7.0-9.0 H = MPV) NEUTROPHIL % (test code = NT%) 72.8 % 56.0-77.0 N IMMATURE GRANULOCYTE % (test 0.5 % 0.0-2.0 N code = IG%) LYMPHOCYTE % (test code = LY%) 13.0 % 14.0-32.0 L MONOCYTE % (test code = MO%) 6.6 % 4.8-9.0 N EOSINOPHIL % (test code = EO%) 6.2 % 0.3-3.7 H BASOPHIL % (test code = BA%) 0.9 % 0.0-2.0 N NUCLEATED RBC % (test code = 0.0 % 0-0 N NRBC%) NEUTROPHIL # (test code = NT#) 5.54 x10 3/uL 2.0-7.6 N IMMATURE GRANULOCYTE # (test 0.04 x10 3/uL 0.00-0.03 H code = IG#) LYMPHOCYTE # (test code = LY#) 0.99 x10 3/uL 1.0-3.8 L MONOCYTE # (test code = MO#) 0.50 x10 3/uL 0.1-0.8 N EOSINOPHIL # (test code = EO#) 0.47 x10 3/uL 0.0-0.2 H BASOPHIL # (test code = BA#) 0.07 x10 3/uL 0.0-0.2 N NUCLEATED RBC # (test code = 0.00 x10 3/uL 0.0-0.1 N NRBC#) MANUAL DIFF REQUIRED (test code NO = ROSA) - XR CHEST 2 [id number] 00:00:00 [facility] : 1935 Sex: M FAX: Jordan Fernandez MD [phone] [place]: St: PRE Name: NAHUN ACOSTA [facility] : 1935 Age/S: 86/M[facility] Unit #: [id number] Loc: [place] [address] Phys: Jordan Brandon MD Acct: [id number] Dis Date: Status: PRE IN PHONE #: [phone] Exam Date: 12/15/2021 1205 FAX #: [phone] Reason: PRE OP EXAMS: CPT CODE: [id number] XR CHEST 2 V 46874 PROCEDURE INFORMATION: Exam: XR Chest Exam date and time: 12/15/2021 12:06 PM Age: 86 years old Clinical indication: Pre-operative exam; Respiratory screening exam; Additional info: Pre op TECHNIQUE: Imaging protocol: Radiologic exam of the chest. Views: 2 views. COMPARISON: No relevant prior studies available. FINDINGS: Lungs: No focal airspace disease or evidence of pulmonary edema. Pleural spaces: No pleural effusion. No pneumothorax. Heart/Mediastinum: Normal appearance of the cardiomediastinal silhouette. Surgical changes with multiple sutures in the mediastinum. Bones/joints: Median sternotomy changes. IMPRESSION: No acute cardiopulmonary abnormality. at 1221 Reported and signed by: Taran Kate M.D. CC: Jordan Brandon MD Technologist: RT Aziza(R) Trnscrd Date/Time/By: 12/15/2021 (1221) : By: [email or web address] Orig Print D/T: S: 12/15/2021 (1221) PAGE 1 Signed ReportPOCT GLUCOSE (AUTOMATED)2020-04-14 13:34:00 Test Item Value Reference Range Interpretation Comments POCT GLU (test code = 6308537896) 140 mg/dL 70-110 H Lab Interpretation (test code = Abnormal 20750-8) [facility] METABOLIC PANEL (NA, K, CL, CO2, GLUCOSE, BUN, CREATININE, CA)2020-04-14 12:01:00 Test Item Value Reference Range Interpretation Comments NA (test code = 135 mmol/L 135-145 3766577865) K (test code = 4.3 mmol/L 3.5-5 6350087255) CL (test code = 106 mmol/L 98-108 0092990674) CO2 TOTAL (test code = 23 mmol/L 23-31 4281890357) AGAP (test code = 2-16 4266035462) BUN (test code = 11 mg/dL 7-23 3904872581) GLUCOSE (test code = 118 mg/dL 70-110 H 8007627176) CREATININE (test code = 0.98 mg/dL 0.6-1.25 9825784608) CALCIUM (test code = 8.5 mg/dL 8.6-10.6 L 8955782858) eGFR Calculation mL/min/1.73m2 (Non-) (test code = 5441503292) eGFR Calculation mL/min/1.73m2 () (test code = 9720915754) YUMI (test code = YUMI) Association of [...] tests). Lab Interpretation Abnormal (test code = 90215-5) [facility]2021-[facility]-28 12:01:00 Test Item Value Reference Range Interpretation Comments MAGNESIUM (test code = 7904139727) 1.9 mg/dL 1.7-2.4 Lab Interpretation (test code = Normal 18971-4) [facility] CenterFIBRINOGEN2021-02-28 11:46:00 Test Item Value Reference Range Interpretation Comments Fibrinogen (test code = 4619321723) 307 mg/dL 167-453 Lab Interpretation (test code = Normal 49898-8) [facility] CenterCB WITHOUT [id number] 11:42:00 Test Item Value Reference Range Interpretation Comments WBC (test code = 6690-2) See_Comment [A utomated message] The system 6connect generated this result transmit rigoberto reference range : 4.20 - 10.70 10*3/?L. The reference range was not used to interpret this result as normal/abnormal . RBC (test code = 789-8) See_Comment L [Au tomated message] The system [employer] generated this result transmit rigoberto reference range [...] 777-3) See_Comment [Au tomated message] The system [facility] generated this result transmit rigoberto reference range : 150 - 328 10*3/?L. The reference range was not used to interpret this result as normal/abnormal . MPV (test code = 9.5 fL 9.8-13 L 66849-8) RDW-CV (test code = 15.0 % 12.1-15.4 788-0) RDW-SD (test code = 45.3 fL 38.5-51.6 03136-2) NRBC x10^3 (test code = <0.01 See_Comment [Au tomated message] 2314456618) The system [employer]connect generated this result transmit rigoberto reference range : 10*3/?L. The reference range was not used to interpret this result as normal/abnormal . NRBC/100 WBC (test code See_Comment [Au tomated message] = 1974783286) The system [facility] generated this result transmit rigoberto reference range : 0.0 - 10.0 /100 WBC s. The reference r pierce was not used to interpret this result as normal/abnormal . IPF % (test code = 1638611902) Lab Interpretation (test Abnormal code = 10043-9) [facility] CenterPO[facility] (AUTOMATED)2020-04-14 04:04:00 Test Item Value Reference Range Interpretation Comments POCT GLU (test code = 8334164623) 137 mg/dL 70-110 H Lab Interpretation (test code = Abnormal 77643-5) [facility] CenterGlycosylated Hemoglobin (A1C)2020-04-14 00:56:00HGB T6BGlrpusv: %A1c cannot be calculated due to low hemoglobin. [facility] LABORATORY SERVICESUnBaylor Scott & White Medical Center – BudaPrepare Packed RBC (in units), 1 [id number] 23:53:17 Test Item Value Reference Range Interpretation Comments Unit Blood Type (test O Pos code = 4410) ISBT Blood Type Code (test code = 899165) Unit Number (test [id number] code = 4411) Blood Expiration Date & Time (test code = 686526) Status Information Issued (test code = 4412) Product Red Blood Cells Identification (test code = 4413) Product Code (test S4894Y82 Performed at [facility] code = 4414) Laboratory Services - [facility] Blood [address] [address]Ymcy Free: [phone] A No. [id number] Cross Match Result Compatible (test code = 4409) [facility] CenterPOCT GLUCOSE (AUTOMATED)2020-04-13 22:58:00 Test Item Value Reference Range Interpretation Comments POCT GLU (test code = 2324136335) 117 mg/dL 70-110 H Lab Interpretation (test code = Abnormal 28568-2) [facility] CenterCBC WITHOUT [id number] 20:37:00 Test Item Value Reference Range Interpretation Comments WBC (test code = 6690-2) See_Comment [A utomated message] The system [employer] generated this result transmit rigoberto reference range : 4.20 - 10.70 10*3/?L. The reference range was not used to interpret this result as normal/abnormal . RBC (test code = 789-8) See_Comment L [Au tomated message] The system [employer] generated this result transmit rigoberto reference range [...] 777-3) See_Comment [Au tomated message] The system [employer] generated this result transmit rigoberto reference range : 150 - 328 10*3/?L. The reference range was not used to interpret this result as normal/abnormal . MPV (test code = 9.1 fL 9.8-13 L 68062-5) RDW-CV (test code = 14.6 % 12.1-15.4 788-0) RDW-SD (test code = 44.7 fL 38.5-51.6 69163-2) NRBC x10^3 (test code = <0.01 See_Comment [Au tomated message] 7696518145) The system [employer] generated this result transmit rigoberto reference range : 10*3/?L. The reference range was not used to interpret this result as normal/abnormal . NRBC/100 WBC (test code See_Comment [Au tomated message] = 5257714873) The system [employer] generated this result transmit rigoberto reference range : 0.0 - 10.0 /100 WBC s. The reference r pierce was not used to interpret this result as normal/abnormal . IPF % (test code = 3780897461) Lab Interpretation (test Abnormal code = 56880-2) [facility] CenterPOMI GLUCOSE (AUTOMATED)2020-04-13 18:27:00 Test Item Value Reference Range Interpretation Comments POCT GLU (test code = 1726654205) 204 mg/dL 70-110 H Lab Interpretation (test code = Abnormal 45078-0) [facility] CenterPrepare Packed RBC (in units), 2 Units 2020-04-13 15:07:12 Test Item Value Reference Range Interpretation Comments Cross Match Result Compatible (test code = 4409) ISBT Blood Type Code (test code = 011715) Unit Blood Type (test O Pos code = 4410) Unit Number (test [id number] code = 4411) Blood Expiration Date & Time (test code = 821388) Status Information Issued (test code = 4412) Product Red Blood Cells Identification (test code = 4413) Product Code (test Q5360T86 Performed at [facility] code = 4414) Laboratory Services - [facility] Blood [address]vesMethodist Hospitalszara [address]Mlhg Free: [phone] A No. [id number] [facility] CenterPOCT GLUCOSE (AUTOMATED)2020-04-13 14:16:00 Test Item Value Reference Range Interpretation Comments POCT GLU (test code = 5796719712) 145 mg/dL 70-110 H Lab Interpretation (test code = Abnormal 52864-7) [facility] CenterTROPONIN [id number] 13:19:00 Test Item Value Reference Range Interpretation Comments TROPONIN I (test 0.049 ng/mL See_Comment H [Automated code = 0329838385) message] The system which generated this result [...] ? Lab Interpretation Abnormal (test code = 04787-7) [facility] CenterCBC WITHOUT [id number] 12:54:00 Test Item Value Reference Range Interpretation Comments WBC (test code = 6690-2) See_Comment [A utomated message] The system [employer] generated this result transmit rigoberto reference range : 4.20 - 10.70 10*3/?L. The reference range was not used to interpret this result as normal/abnormal . RBC (test code = 789-8) See_Comment L [Au tomated message] The system [employer] generated this result transmit rigoberto reference range [...] 777-3) See_Comment [Au tomated message] The system [employer] generated this result transmit rigoberto reference range : 150 - 328 10*3/?L. The reference range was not used to interpret this result as normal/abnormal . MPV (test code = 9.5 fL 9.8-13 L 73976-4) RDW-CV (test code = 15.1 % 12.1-15.4 788-0) RDW-SD (test code = 47.6 fL 38.5-51.6 46061-1) NRBC x10^3 (test code = <0.01 See_Comment [Au tomated message] 9343383717) The system [employer] generated this result transmit rigoberto reference range : 10*3/?L. The reference range was not used to interpret this result as normal/abnormal . NRBC/100 WBC (test code See_Comment [Au tomated message] = 8719538390) The [facility] generated this result transmit rigoberto reference range : 0.0 - 10.0 /100 WBC s. The reference r pierce was not used to interpret this result as normal/abnormal . IPF % (test code = 3605661869) Lab Interpretation (test Abnormal code = 69819-8) [facility] CenterACTIVATED PARTIAL THRMPLAS [id number] 08:29:00 Test Item Value Reference Range Interpretation Comments APTT Patient (test code See_Comment L [Au tomated message] = 3173-2) The system [employer] generated this result transmitted ref erence range: 26 - 36 Seconds. The reference range was not used to int erpret this result as normal/abnormal . Lab Interpretation (test Abnormal code = 08231-6) [facility] CenterABORH [id number] 07:49:38 Test Item Value Reference Range Interpretation Comments ABO & RH (test code O Positive Performe d at [facility] = 20) Laboratory Serv [facility] Blood Bank[address] [place] [address] s [address]Dzos Free: [phone] A No. [id number] [facility] CenterFERRITIN [id number] 07:36:00 Test Item Value Reference Range Interpretation Comments FERRITIN (test code = 5.9 ng/mL 18-464 L 3985867467) YUMI (test code = YUMI) Biotin has been reported to cause a negative bias, interpret results relative to patient's use of biotin. Lab Interpretation (test Abnormal code = 51559-9) [facility] CenterType and Screen - ONCE [id number] 07:34:15 Test Item Value Reference Range Interpretation Comments ABO & RH (test code O POSITIVE Performe d at [facility] = 20) Laboratory Serv [facility] Blood Bank[address] [place] [address] s [address]Tlwm Free: [phone] A No. [id number] IAT (test code = Negative Performed a t [facility] 1185) Laboratory Serv [facility] Blood Bank[address] [place] [address] s [address]Fllm Free: [phone] A No. [id number] [facility] CenterIRON [id number] 07:23:00 Test Item Value Reference Range Interpretation Comments IRON (test code = <10 50-160 L 7750473161) TIBC (test code = 403 ug/dL 250-410 9774492822) % FE SAT (test code = Unable to calculate 4194908188) because, either iron serum, total ir on binding capacit y, or both are less t loya the sensitivity of the analyzer. Lab Interpretation (test Abnormal code = 66964-4) [facility] CenterTROPONIN [id number] 07:13:00 Test Item Value Reference Range Interpretation Comments TROPONIN I (test 0.046 ng/mL See_Comment H [Automated code = 6822680646) message] The system which generated this result [...] ? Lab Interpretation Abnormal (test code = 64943-9) [facility] CenterCOMP. METABOLIC PANEL (83621)2020-04-13 06:58:00 Test Item Value Reference Range Interpretation Comments NA (test code = 136 mmol/L 135-145 1091915006) K (test code = 3.1 mmol/L 3.5-5 L 3029343523) CL (test code = 107 mmol/L 98-108 6866896122) CO2 TOTAL (test code = 25 mmol/L 23-31 3594840610) AGAP (test code = 2-16 3140800165) BUN (test code = 17 mg/dL 7-23 0501082784) GLUCOSE (test code = 120 mg/dL 70-110 H 7968993302) CREATININE (test code = 0.87 mg/dL 0.6-1.25 6636453880) TOTAL BILI (test code = 0.4 mg/dL 0.1-1.9 8419343906) CALCIUM (test code = 7.3 mg/dL 8.6-10.6 L 4707838388) T PROTEIN (test code = 5.3 g/dL 6.3-8.2 L 7264301998) ALBUMIN (test code = 2.8 g/dL 3.5-5 L 9119177664) ALK PHOS (test code = 48 U/L 34-122 0771073258) ALTv (test code = 10 U/L 5-50 1742-6) AST(SGOT) (test code = 20 U/L 13-40 3802819157) eGFR Calculation mL/min/1.73m2 (Non-) (test code = 8634401120) eGFR Calculation mL/min/1.73m2 () (test code = 2598351251) YUMI (test code = YUMI) Association of [...] tests). Lab Interpretation Abnormal (test code = 71708-7) [facility] CenterPROTHROMBIN TIME / [id number] 06:57:00 Test Item Value Reference Range Interpretation Comments PROTIME PATIENT (test See_Comment [Auto mated message] code = 5964-2) The system [employer] ich generated this result transmitted ref erence range: 10.1 - 1 2.6 Seconds. The re ference range was not u sed to interpret this result as normal/abnor mal. INR (test code = 6301-6) Nor mal INR <1.1; Warfarin Therap eutic range 2.0 to 3. 0 or 2.5 to 3.5, dep ending upon the indica tions. Lab Interpretation (test Normal code = 48122-6) [facility] CenterCB WITH [id number] 06:33:00 Test Item Value Reference Range Interpretation [...] RDW-SD (test code = 47.8 fL 38.5-51.6 52849-7) RDW-CV (test code = 15.4 % 12.1-15.4 788-0) PLT (test code = See_Comment [Automated 777-3) message] The sy stem which generated this result transmitted reference range : 150 - 328 10*3/ ?L. The reference r pierce was not used to interpret this result as normal/abnormal . MPV (test code = 9.6 fL 9.8-13 L 65816-3) NRBC/100 WBC (test See_Comment [Automat ed code = 2793784109) message] The system which generated this result transmitted reference range : 0.0 - 10.0 /100 WBCs. The refer ence range was not u sed to interpret th is result as normal/abnormal . NRBC x10^3 (test code <0.01 See_Comment [Auto mated = 5968421734) message] The s ystem which generated this result transmitted reference range : 10*3/?L. The reference range was not used to interpret this result as normal/abnormal . GRAN MAT (NEUT) % 63.5 % (test code = 770-8) IMM GRAN % (test code 0.70 % = 9048207203) LYMPH % (test code = 21.7 % 736-9) MONO % (test code = 8.0 % 5905-5) EOS % (test code = 5.6 % 713-8) BASO % (test code = 0.5 % 706-2) GRAN MAT x10^3(ANC) 3.87 10*3/uL 1.99-6.95 (test code = 5155057646) IMM GRAN x10^3 (test 0.04 10*3/uL 0-0.06 code = 4978654850) LYMPH x10^3 (test code 1.32 10*3/uL 1.09-3.23 = 731-0) MONO x10^3 (test code 0.49 10*3/uL 0.36-1.02 = 742-7) EOS x10^3 (test code = 0.34 10*3/uL 0.06-0.53 711-2) BASO x10^3 (test code 0.03 10*3/uL 0.01-0.09 = 704-7) Lab Interpretation Abnormal (test code = 21340-6) [facility] CenterPOCT-GLUCOSE [id number] 07:54:00 Test Item Value Reference Range Interpretation Comments POC-GLUCOSE METER 87 mg/dL 70-110 TESTED AT [facility] 6720 (BEAKER) (test code = [place] [address] 1538) [id number] 06:53:00 Test Item Value Reference Range Interpretation Comments MAGNESIUM (BEAKER) (test code = 1.7 mg/dL 1.6-2.6 627) BASIC METABOLIC [id number] 06:53:00 Test Item Value Reference Range Interpretation [...] PATIEN TS. CBC W/PLT COUNT & AUTO [id number] 06:50:00 Test Item Value Reference Range Interpretation [...] (BEAKER) (test code = 2801) HEMOGLOBIN AND [id number] 06:36:00 Test Item Value Reference Range Interpretation Comments HEMOGLOBIN (BEAKER) (test code = 8.2 GM/DL 13.7-17.5 L 410) HEMATOCRIT (BEAKER) (test code = 26.2 % 40.1-51.0 L 411) POCT-GLUCOSE [id number] 00:26:00 Test Item Value Reference Range Interpretation Comments POC-GLUCOSE METER 96 mg/dL 70-110 TESTED AT [facility] 67[address] (BEAKER) (test code = [place] [address] 1538) [id number] 17:54:00 Test Item Value Reference Range Interpretation Comments MAGNESIUM (BEAKER) (test code = 1.5 mg/dL 1.6-2.6 L 627) BASIC METABOLIC [id number] 17:54:00 Test Item Value Reference Range Interpretation [...] NOT APPLICABLE FOR DIALYSIS PATIEN TS. PROTHROMBIN TIME/[id number] 17:33:00 Test Item Value Reference Range Interpretation Comments PROTIME (BEAKER) (test code = 15.0 seconds 11.7-14.7 H 759) INR (BEAKER) (test code = 370) 1.2 <=5.9 RECOMMENDED COUMADIN/WARFARIN INR THERAPY RANGESSTANDARD DOSE: 2.0 - 3.0 Includes: PROPHYLAXIS for venous thrombosis, systemic embolization; TREATMENT for venous thrombosis and/or pulmonary embolus.HIGH RISK: Target INR is 2.5-3.5 for patients with mechanical heart valves.HEMOGLOBIN AND [id number] 17:25:00 Test Item Value Reference Range Interpretation Comments HEMOGLOBIN (BEAKER) (test code = 8.9 GM/DL 13.7-17.5 L 410) HEMATOCRIT (BEAKER) (test code = 27.8 % 40.1-51.0 L 411) POCT-GLUCOSE [id number] 17:03:00 Test Item Value Reference Range Interpretation Comments POC-GLUCOSE METER 84 mg/dL 70-110 TESTED AT [facility] 6720 (BEAKER) (test code = FABIOLA Tobias [facility] [address] 1538) POCT-GLUCOSE [id number] 15:23:00 Test Item Value Reference Range Interpretation Comments POC-GLUCOSE METER 85 mg/dL 70-110 TESTED AT [place] [address] (BEAKER) (test code = FABIOLA Tobias [facility] [address] 1538) POCT-GLUCOSE [id number] 07:16:00 Test Item Value Reference Range Interpretation Comments POC-GLUCOSE METER 104 mg/dL 70-110 [facility] AT [place] [address] [facility] (test code = FABIOLA Tobias [facility] 1538) [address] HEMOGLOBIN AND [id number] 01:14:00 Test Item Value Reference Range Interpretation Comments HEMOGLOBIN (BEAKER) (test code = 6.7 GM/DL 13.7-17.5 L 410) HEMATOCRIT (BEAKER) (test code = 21.6 % 40.1-51.0 L 411) BASIC METABOLIC [id number] 20:19:00 Test Item Value Reference Range Interpretation [...] APPLICABLE FOR DIALYSIS PATIEN TS. HEPATIC FUNCTION [id number] 20:19:00 Test Item Value Reference Range Interpretation [...] slightly (test code = 347) hemolyzed PROTHROMBIN TIME/[id number] 20:10:00 Test Item Value Reference Range Interpretation [...] mechanical heart valves.CBC W/PLT COUNT & AUTO [id number] 20:01:00 Test Item Value Reference Range Interpretation [...] PERCENT (BEAKER) (test code = 2801) POCT-GLUCOSE [id number] 17:01:00 Test Item Value Reference Range Interpretation Comments POC-GLUCOSE METER 128 mg/dL 70-110 H TESTED AT [facility] 6720 (BEAKER) (test code = FABIOLA [place] 1538) [address] ANG, VISCERAL [id number] 16:35:00FINAL REPORT Mesenteric angiogram, 04/15/2017. History: GI bleed. Modality: Fluoroscopy. Sedation: Versed 1.0 mg and fentanyl 50 mcg was given intravenously for conscious sedation . Vital signs were monitored throughout the procedure by a nurse, and remained stable. Physician intra-service time was 30 minutes. Anesthesia: Two percent Lidocaine without epinephrine. Approach: Right common femoral artery. Estimated blood loss: < 5 cc. Specimen: None. flotation operator: Maxim Sims MD. Remote Control Assembler: None. Fluoroscopy Time: 2.1 min.Reference Air Kerma [...] The needle was removed and a 4 Spanish micropuncture sheath was placed, and the 0.018 wire was exchanged for 0.035 inch J-wire. A 5 Spanish sheath was placed. A 5 Spanish Ag B catheter was used to select [...] MDReport Verified Date/Time: 04/22/2017 16:35:40 Reading Location: [place] [id number] Ultrasound Reading Room POCT-GLUCOSE [id number] 11:27:00 Test Item Value Reference Range Interpretation Comments POC-GLUCOSE METER 238 mg/dL 70-110 H TESTED AT [place] [address] ([facility]) (test code = [facility] 1538) [address] POCT-GLUCOSE [id number] 08:08:00 Test Item Value Reference Range Interpretation Comments POC-GLUCOSE METER 146 mg/dL 70-110 H TESTED AT [place] [address] ([facility]) (test code = [facility] 1538) [address] TSH/FREE T4 IF [id number] 05:24:00 Test Item Value Reference Range Interpretation Comments THYROID STIMULATING HORMONE 4.44 uIU/mL 0.35-4.94 ([facility]) (test code = 772) [id number] 05:17:00 Test Item Value Reference Range Interpretation Comments PHOSPHORUS (BEAKER) (test code = 4.2 mg/dL 2.3-4.7 604) [id number] 05:17:00 Test Item Value Reference Range Interpretation Comments MAGNESIUM (BEAKER) (test code = 1.8 mg/dL 1.6-2.6 627) BASIC METABOLIC [id number] 05:17:00 Test Item Value Reference Range Interpretation [...] PATIEN TS. CBC W/PLT COUNT & AUTO [id number] 04:53:00 Test Item Value Reference Range Interpretation [...] (BEAKER) (test code = 2801) HEMOGLOBIN AND [id number] 04:48:00 Test Item Value Reference Range Interpretation Comments HEMOGLOBIN (BEAKER) (test code = 9.1 GM/DL 13.7-17.5 L 410) HEMATOCRIT (BEAKER) (test code = 27.7 % 40.1-51.0 L 411) POCT-GLUCOSE [id number] 21:33:00 Test Item Value Reference Range Interpretation Comments POC-GLUCOSE METER 268 mg/dL 70-110 H TESTED AT [facility] 67 (BEAKER) (test code = FABIOL[place] 1538) [address] POCT-GLUCOSE [id number] 17:36:00 Test Item Value Reference Range Interpretation Comments POC-GLUCOSE METER 131 mg/dL 70-110 H TESTED AT [facility] 6720 (BEAKER) (test code = FABIOL[place] Tob[place] 1538) [address] HEMOGLOBIN AND [id number] 17:09:00 Test Item Value Reference Range Interpretation Comments HEMOGLOBIN (BEAKER) (test code = 9.1 GM/DL 13.7-17.5 L 410) HEMATOCRIT (BEAKER) (test code = 27.0 % 40.1-51.0 L 411) POCT-GLUCOSE [id number] 11:29:00 Test Item Value Reference Range Interpretation Comments POC-GLUCOSE METER 243 mg/dL 70-110 H TESTED AT [facility] 6720 (BEAKER) (test code = [place] 1535) [address] BASIC METABOLIC [id number] 04:05:00 Test Item Value Reference Range Interpretation [...] S NOT APPLICABLE FOR DIALYSIS PATIEN TS. [id number] 03:52:00 Test Item Value Reference Range Interpretation Comments PHOSPHORUS (BEAKER) (test code = 3.5 mg/dL 2.3-4.7 604) [id number] 03:52:00 Test Item Value Reference Range Interpretation Comments MAGNESIUM (BEAKER) (test code = 1.6 mg/dL 1.6-2.6 627) CBC W/PLT COUNT & AUTO [id number] 03:42:00 Test Item Value Reference Range Interpretation [...] PERCENT (BEAKER) (test code = 2801) POCT-GLUCOSE [id number] 23:56:00 Test Item Value Reference Range Interpretation Comments POC-GLUCOSE METER 149 mg/dL 70-110 H TESTED AT [facility] 6720 (BEAKER) (test code = [place] 1538) [address] HEMOGLOBIN AND [id number] 23:48:00 Test Item Value Reference Range Interpretation Comments HEMOGLOBIN (BEAKER) (test code = 8.3 GM/DL 13.7-17.5 L 410) HEMATOCRIT (BEAKER) (test code = 24.7 % 40.1-51.0 L 411) POCT-GLUCOSE [id number] 18:37:00 Test Item Value Reference Range Interpretation Comments POC-GLUCOSE METER 149 mg/dL 70-110 H TESTED AT [facility] 6720 (BEAKER) (test code = AFBIOLA Tobias [facility] 1538) [address] HEMOGLOBIN AND [id number] 14:27:00 Test Item Value Reference Range Interpretation Comments HEMOGLOBIN (BEAKER) (test code = 9.0 GM/DL 13.7-17.5 L 410) HEMATOCRIT (BEAKER) (test code = 27.0 % 40.1-51.0 L 411) POCT-GLUCOSE [id number] 12:21:00 Test Item Value Reference Range Interpretation Comments POC-GLUCOSE METER 122 mg/dL 70-110 H TESTED AT [facility] 6720 (BEAKER) (test code = [facility] 1538) [address] BASIC METABOLIC [id number] 04:49:00 Test Item Value Reference Range Interpretation [...] S NOT APPLICABLE FOR DIALYSIS PATIEN TS. [id number] 04:43:00 Test Item Value Reference Range Interpretation Comments MAGNESIUM (BEAKER) (test code = 1.5 mg/dL 1.6-2.6 L 627) [id number] 04:43:00 Test Item Value Reference Range Interpretation Comments PHOSPHORUS (BEAKER) (test code = 3.4 mg/dL 2.3-4.7 604) CBC W/PLT COUNT & AUTO [id number] 04:16:00 Test Item Value Reference Range Interpretation [...] (BEAKER) (test code = 2801) HEMOGLOBIN AND [id number] 23:11:00 Test Item Value Reference Range Interpretation Comments HEMOGLOBIN (BEAKER) (test code = 7.4 GM/DL 13.7-17.5 L 410) HEMATOCRIT (BEAKER) (test code = 22.0 % 40.1-51.0 L 411) POCT-GLUCOSE [id number] 22:00:00 Test Item Value Reference Range Interpretation Comments POC-GLUCOSE METER 163 mg/dL 70-110 H TESTED AT [place] [address] ([facility]) (test code = [facility] 1538) [address] POCT-GLUCOSE [id number] 17:19:00 Test Item Value Reference Range Interpretation Comments POC-GLUCOSE METER 151 mg/dL 70-110 H TESTED AT [place] [address] ([facility]) (test code = [facility] 1538) [address] HEMOGLOBIN AND [id number] 16:24:00 Test Item Value Reference Range Interpretation Comments HEMOGLOBIN (BEAKER) (test code = 8.4 GM/DL 13.7-17.5 L 410) HEMATOCRIT (BEAKER) (test code = 25.2 % 40.1-51.0 L 411) POCT-GLUCOSE [id number] 09:30:00 Test Item Value Reference Range Interpretation Comments POC-GLUCOSE METER 96 mg/dL 70-110 TESTED AT [place] [address] ([facility]) (test code = [facility] [address] 1538) CBC W/PLT COUNT & AUTO [id number] 09:10:00 Test Item Value Reference Range Interpretation Comments WHITE BLOOD CELL COUNT (AKER) 7.4 K/ L 3.5-10.5 (test code = [...] (BEAKER) (test code = 2801) BASIC METABOLIC [id number] 07:12:00 Test Item Value Reference Range Interpretation [...] S NOT APPLICABLE FOR DIALYSIS PATIEN TS. [id number] 07:10:00 Test Item Value Reference Range Interpretation Comments MAGNESIUM (BEAKER) 1.7 mg/dL 1.6-2.6 Specimen slightly (test code = 627) hemolyzed [id number] 07:10:00 Test Item Value Reference Range Interpretation Comments PHOSPHORUS (BEAKER) 2.0 mg/dL 2.3-4.7 L Specimen slightly (test code = 604) hemolyzed [id number] 06:24:00 Test Item Value Reference Range Interpretation [...] 2.5-3.5 for patients with mechanical heart valves.PROTHROMBIN [id number] 06:23:00 Test Item Value Reference Range Interpretation Comments PROTIME (BEAKER) (test code = 15.4 seconds 11.7-14.7 H 759) INR (BEAKER) (test code = 370) 1.2 <=5.9 RECOMMENDED COUMADIN/WARFARIN INR THERAPY RANGESSTANDARD DOSE: 2.0 - 3.0 Includes: PROPHYLAXIS for venous thrombosis, systemic embolization; TREATMENT for venous thrombosis and/or pulmonary embolus.HIGH RISK: Target INR is 2.5-3.5 for patients with mechanical heart valves.HEMOGLOBIN AND [id number] 23:40:00 Test Item Value Reference Range Interpretation Comments HEMOGLOBIN (BEAKER) (test code = 7.3 GM/DL 13.7-17.5 L 410) HEMATOCRIT (BEAKER) (test code = 21.7 % 40.1-51.0 L 411) POCT-GLUCOSE [id number] 23:37:00 Test Item Value Reference Range Interpretation Comments POC-GLUCOSE METER 114 mg/dL 70-110 H TESTED AT [place] [address] ([facility] (test code = [facility] 1538) [address] HEMOGLOBIN AND [id number] 17:46:00 Test Item Value Reference Range Interpretation Comments HEMOGLOBIN (BEAKER) (test code = 7.2 GM/DL 13.7-17.5 L 410) HEMATOCRIT (BEAKER) (test code = 22.0 % 40.1-51.0 L 411) POCT-GLUCOSE [id number] 17:29:00 Test Item Value Reference Range Interpretation Comments POC-GLUCOSE METER 146 mg/dL 70-110 H TESTED AT [place] [address] ([facility]) (test code = [facility] 1538) [address] PROTHROMBIN [id number] 12:38:00 Test Item Value Reference Range Interpretation Comments PROTIME (BEAKER) (test code = 17.0 seconds 11.7-14.7 H 759) INR (BEAKER) (test code = 370) 1.4 <=5.9 RECOMMENDED COUMADIN/WARFARIN INR THERAPY RANGESSTANDARD DOSE: 2.0 - 3.0 Includes: PROPHYLAXIS for venous thrombosis, systemic embolization; TREATMENT for venous thrombosis and/or pulmonary embolus.HIGH RISK: Target INR is 2.5-3.5 for patients with mechanical heart valves.[id number] 12:38:00 Test Item Value Reference Range Interpretation [...] for patients with mechanical heart valves.HEMOGLOBIN AND [id number] 12:21:00 Test Item Value Reference Range Interpretation Comments HEMOGLOBIN (BEAKER) (test code = 7.1 GM/DL 13.7-17.5 L 410) HEMATOCRIT (BEAKER) (test code = 21.7 % 40.1-51.0 L 411) POCT-GLUCOSE [id number] 12:01:00 Test Item Value Reference Range Interpretation Comments POC-GLUCOSE METER 147 mg/dL 70-110 H TESTED AT [facility] 6720 (BEAKER) (test code = [place] 1538) [address] [id number] 09:30:00 Test Item Value Reference Range Interpretation Comments PHOSPHORUS (BEAKER) (test code = 2.3 mg/dL 2.3-4.7 604) [id number] 09:30:00 Test Item Value Reference Range Interpretation Comments MAGNESIUM (BEAKER) (test code = 1.8 mg/dL 1.6-2.6 627) BASIC METABOLIC [id number] 09:30:00 Test Item Value Reference Range Interpretation [...] PATIEN TS. CBC W/PLT COUNT & AUTO [id number] 08:40:00 Test Item Value Reference Range Interpretation [...] PERCENT (AKER) (test code = 2801) POCT-GLUCOSE [id number] 07:17:00 Test Item Value Reference Range Interpretation Comments POC-GLUCOSE METER 151 mg/dL 70-110 H TESTED AT [place] [address] ([facility]) ([facility] = [facility] [place] 1538) [address] POCT-GLUCOSE [id number] 02:45:00 Test Item Value Reference Range Interpretation Comments POC-GLUCOSE METER 164 mg/dL 70-110 H TESTED AT [place] [address] ([facility]) (test code = [facility] Micheline [facility] 1538) [address] HEMOGLOBIN AND [id number] 01:50:00 Test Item Value Reference Range Interpretation Comments HEMOGLOBIN (BEAKER) (test code = 6.3 GM/DL 13.7-17.5 L 410) HEMATOCRIT (BEAKER) (test code = 19.7 % 40.1-51.0 L 411) HEMOGLOBIN AND [id number] 20:50:00 Test Item Value Reference Range Interpretation Comments HEMOGLOBIN (BEAKER) (test code = 7.1 GM/DL 13.7-17.5 L 410) HEMATOCRIT (BEAKER) (test code = 22.0 % 40.1-51.0 L 411) [id number] 19:35:00 Test Item Value Reference Range Interpretation Comments PROCALCITONIN (BEAKER) (test code = < ng/mL <0.05 3036) SEPSIS RISK (ng/mL)Low: 0.05-0.50Intermediate: 0.51-2.00High: >=2.01LACTIC ACID, VENOUS, WHOLE [id number] 17:58:00 Test Item Value Reference Range Interpretation Comments LACTATE BLOOD VENOUS (2) (BEAKER) 1.1 mmol/L 0.5-2.2 (test code = 2872) Effective 06/19/2015: Units/Reference Range ChangeNew: 0.5-2.2 mmol/L Previous: 5- 20 mg/dLRAD, CHEST, 1 VIEW, NON [id number] 17:31:00Reason for exam:- >SOBShould this be performed [...] 04/15/2017 17:31:41 Reading Location: [facility] Radiology Reading Room C METABOLIC [id number] 17:17:00 Test Item Value Reference Range Interpretation [...] S NOT APPLICABLE FOR DIALYSIS PATIEN TS. [id number] 17:04:00 Test Item Value Reference Range Interpretation Comments PHOSPHORUS (BEAKER) (test code = 2.4 mg/dL 2.3-4.7 604) [id number] 17:04:00 Test Item Value Reference Range Interpretation Comments MAGNESIUM (BEAKER) (test code = 1.8 mg/dL 1.6-2.6 627) HEPATIC FUNCTION [id number] 17:04:00 Test Item Value Reference Range Interpretation [...] code = 11 U/L 6-55 347) PROTHROMBIN [id number] 16:47:00 Test Item Value Reference Range Interpretation [...] mechanical heart valves.CBC W/PLT COUNT & AUTO [id number] 16:41:00 Test Item Value Reference Range Interpretation [...] (BEAKER) (test code = 2801) HEMOGLOBIN AND [id number] 16:40:00 Test Item Value Reference Range Interpretation Comments HEMOGLOBIN (BEAKER) (test code = 7.4 GM/DL 13.7-17.5 L 410) HEMATOCRIT (MAXI) (test code = 23.2 % 40.1-51.0 L 411)"
[2022-01-09] MEDS ORDERED: NA CHLORIDE 0.9% 1,000 ML ONE ×2 (10:12→12:11)
[2022-01-09] MEDS ORDERED: PANTOPRAZOLE 40 MG INJ ONE (10:12)
[2022-01-09] MEDS ORDERED: NA CHLORIDE 0.9% 100 ML IV ONE (10:13)
[2022-01-09] MEDS ORDERED: NA CHLORIDE 0.9% 500 ML ONE ×2 (10:13→12:12)
[2022-01-09] MEDS ORDERED: PIPERACIL/TAZO 3.375 GM VIAL IV ONE (10:13)
[2022-01-09 10:34] LABS: Absolute Lymphocytes (CBC) 0.8 K/uL (0.7-4.9); Hematocrit 31.2 % (39.6-49.0); Lymphocytes % 8.6 % (15.3-44.8); MPV 7.8 fL (7.6-11.3); Protime INR 1.66; RBC Red Blood Cell Count 3.43 M/uL (4.33-5.43)
[2022-01-09 10:42] LABS: Urine Blood Trace-lysed (Negative); Urine Glucose Negative (Negative); Urine Protein Negative (Negative); Urine Specific Gravity 1.025 (1.005-1.030)
[2022-01-09 10:44] LABS: SARS-CoV-2 Antigen Rapid Res Negative (Negative)
[2022-01-09 10:47] LABS: Albumin 2.9 g/dL (3.4-5.0); Bilirubin Direct 0.2 mg/dL (0-0.2); Bilirubin Total 0.5 mg/dL (0.2-1.0); Potassium 4.6 mmol/L (3.5-5.1); Protein, Total 6.5 g/dL (6.4-8.2); Troponin High Sensitivity 9.7 pg/mL (<58.9)
--- NOTE | 2022-01-09 11:28 | RAD REPORT ---
EXAM DESCRIPTION: CT - Abdomen Pelvis W Contrast - 01/09/2022 11:02 am CLINICAL HISTORY: Abdominal pain/rectal bleeding COMPARISON: September 2021 TECHNIQUE: Computed axial tomography of the abdomen pelvis was obtained. 100 cc Isovue-300 was admin istered intravenously. Oral contrast was not requested which limits evaluation of bowel and appendix All CT scans are performed using dose optimization technique as appropriate and may include automated exposure control or mA/KV adjustment according to patient size. FINDINGS: Mild left lower lobe opacities Cholecystectomy. Liver, spleen and adrenals unremarkable. Renal cysts. Small hiatal hernia Chronic pancreatic calcification. Normal appendix. Diverticula stem from the colon without visualization of diverticulitis. No obstruct ion. Atherosclerosis. IMPRESSION: Mild left lower lobe opacities may indicate mild pneumonia
--- NOTE | 2022-01-09 11:29 | RAD REPORT ---
EXAM DESCRIPTION: Jordon Single View01/09/2022 9:46 am CLINICAL HISTORY: Cough COMPARISON: October 2021 FINDINGS: Mild left lower lobe opacities Right lung appears clear The heart is normal size. Postsurgical changes involve the chest IMPRESSION: Mild left lower lobe pneumonia
--- NOTE | 2022-01-09 12:09 | EDPHYS ---
Physician Documentation [facility] Name: Mike Peña Age: 86 yrs Sex: Male : 1935 Arrival Date: 01/09/2022 Time: 09:22 Bed 15 Private MD: KIARRA Physician Gary Ruano HPI: 01/09 11:49 This 86 yrs old Male presents to ER via EMS with complaints of Bloody Stools. wolfgang 11:49 The patient presents to the emergency department with rectal bleeding, a moderate wolfgang amount, bright red blood with bowel movement, in toilet bowl. Onset: The symptoms/episode began/occurred 2 day(s) ago. Abdominal pain: none is appreciated. Modifying factors: The symptoms are alleviated by nothing, the symptoms are aggravated by nothing. The patient or guardian reports cough, that is intermittent. Severity of symptoms: At their worst the symptoms were mild, in the emergency department the symptoms are unchanged. Associated signs and symptoms: Pertinent negatives: chest pain, constipation, shortness of breath. Modifying factors: The symptoms are alleviated by nothing, the symptoms are aggravated by nothing. Severity of symptoms: At their worst the symptoms were moderate in the emergency department the symptoms have improved mildly. Associated signs and symptoms: The patient has no apparent associated signs or symptoms. The patient has experienced similar episodes in the past, several times. Historical: - Allergies: 09:36 No Known Allergies; kr3 - PMHx: 09:36 Cancer; carcinoma; Diabetes - NIDDM; Diverticulitis; Hypothyroidism; ischemic heart kr3 disease; - Immunization history:: Adult Immunizations not up to date. - Social history:: Smoking status: Patient/guardian denies using tobacco, the patient reports quitting approximately 53 years ago. - Family history:: not pertinent. ROS: 11:50 Constitutional: Negative for fever, chills, and weight loss, Eyes: Negative for injury, wolfgang pain, redness, and discharge, ENT: Negative for injury, pain, and discharge, Neck: Negative for injury, pain, and swelling, Cardiovascular: Negative for chest pain, palpitations, and edema, Respiratory: Negative for shortness of breath, cough, wheezing, and pleuritic chest pain, Back: Negative for injury and pain, : Negative for injury, bleeding, discharge, and swelling, MS/Extremity: Negative for injury and deformity, Skin: Negative for injury, rash, and discoloration, Neuro: Negative for headache, weakness, numbness, tingling, and seizure, Psych: Negative for depression, anxiety, suicide ideation, homicidal ideation, and hallucinations, Allergy/Immunology: Negative for hives, rash, and allergies, Endocrine: Negative for neck swelling, polydipsia, polyuria, polyphagia, and marked weight changes, Hematologic/Lymphatic: Negative for swollen nodes, abnormal bleeding, and unusual bruising. 11:50 Abdomen/GI: Positive for rectal bleeding. Exam: 11:50 Constitutional: This is a well developed, well nourished patient who is awake, alert, wolfgang and in no acute distress. Head/Face: Normocephalic, atraumatic. Eyes: Pupils equal round and reactive to light, extra-ocular motions intact. Lids and lashes normal. Conjunctiva and sclera are non-icteric and not injected. Cornea within normal limits. Periorbital areas with no swelling, redness, or edema. ENT: Nares patent. No nasal discharge, no septal abnormalities noted. Tympanic membranes are normal and external auditory canals are clear. Oropharynx with no redness, swelling, or masses, exudates, or evidence of obstruction, uvula midline. Mucous membranes moist. Neck: Trachea midline, no thyromegaly or masses palpated, and no cervical lymphadenopathy. Supple, full range of motion without nuchal rigidity, or vertebral point tenderness. No Meningismus. Chest/axilla: Normal chest wall appearance and motion. Nontender with no deformity. No lesions are appreciated. Cardiovascular: Regular rate and rhythm with a normal S1 and S2. No gallops, murmurs, or rubs. Normal PMI, no JVD. No pulse deficits. Respiratory: Lungs have equal breath sounds bilaterally, clear to auscultation and percussion. No rales, rhonchi or wheezes noted. No increased work of breathing, no retractions or nasal flaring. Back: No spinal tenderness. No costovertebral tenderness. Full range of motion. Male : Normal genitalia with no discharge or lesions. Skin: Warm, dry with normal turgor. Normal color with no rashes, no lesions, and no evidence of cellulitis. MS/ Extremity: Pulses equal, no cyanosis. Neurovascular intact. Full, normal range of motion. Neuro: Awake and alert, GCS 15, oriented to person, place, time, and situation. Cranial nerves II-XII grossly intact. Motor strength 5/5 in all extremities. Sensory grossly intact. Cerebellar exam normal. Normal gait. Psych: Awake, alert, with orientation to person, place and time. Behavior, mood, and affect are within normal limits. 11:50 ECG was reviewed by the Attending Physician. 11:50 Abdomen/GI: Inspection: abdomen appears normal, Bowel sounds: normal, Palpation: abdomen is soft and non-tender, Rectal exam: Prostate: normal, rectal tone normal, Stool: grossly bloody, guaiac positive, hemorrhoid(s), are not appreciated, mass, is not appreciated, swelling, is not appreciated, tenderness, is not appreciated, Liver: no appreciated palpable abnormalities, Hernia: not appreciated. Vital Signs: 09:28 BP 95 / 64; Pulse 108; Resp 16; Temp 96.9; Pulse Ox 98% on R/A; Weight 80.51 kg; Height ko1 6 ft. 1 in. (185.42 cm); 10:30 BP 107 / 64; Pulse 102; Resp 17; Pulse Ox 99% on R/A; kr3 11:30 BP 98 / 64; Pulse 107; Resp 17; Pulse Ox 100% on R/A; kr3 12:30 BP 99 / 68; Pulse 109; Resp 18; Temp 98.0; Pulse Ox 99% on R/A; kr3 13:30 BP 103 / 71; Pulse 108; Resp 16; Temp 97.9; Pulse Ox 100% ; kr3 14:15 BP 104 / 68; Pulse 106; Pulse Ox 100% on R/A; kr3 09:28 Body Mass Index 23.42 (80.51 kg, 185.42 cm) ko1 MDM: 09:27 Patient medically screened. wolfgang 11:53 Differential diagnosis: diverticulitis, hemorrhoids, hemorrhagic shock. Differential wolfgang Diagnosis: Bronchitis Influenza Upper Respiratory Infection. Data reviewed: vital signs, nurses notes, lab test result(s), EKG, radiologic studies, CT scan, plain films. Data interpreted: terminal makeup operator: rate is 102 beats/min, Pulse oximetry: on room air is 99 %. Test interpretation: by ED physician or midlevel provider: ECG, plain radiologic studies. Counseling: I had a detailed discussion with the patient and/or guardian regarding: the historical points, exam findings, and any diagnostic results supporting the discharge/admit diagnosis, lab results, radiology results, the need for further work-up and treatment in the hospital. 01/09 09:32 Order name: Basic Metabolic Panel; Complete Time: 11:17 [facility] 01/09 09:32 Order name: CBC with Diff; Complete Time: 11: [facility] 01/09 09:32 Order name: LFT's; Complete Time: 11: [facility] 01/09 09:32 Order name: Magnesium; Complete Time: 11: [facility] 01/09 09:32 Order name: NT PRO-BNP; Complete Time: 11: [facility] 01/09 09:32 Order name: PT-INR; Complete Time: 11: [facility] 01/09 09:32 Order name: Troponin HS; Complete Time: 11: [facility] 01/09 09:32 Order name: Lipase; Complete Time: 11: [facility] 01/09 09:32 Order name: Urine Culture [facility] 01/09 09:32 Order name: Lactate w/ 2H reflex if indic.; Complete Time: 11: [facility] 01/09 09:32 Order name: SARS RAPID; Complete Time: 11: [facility] 01/09 09:32 Order name: Type And Screen [facility] 01/09 09:47 Order name: Bb Add On em1 01/09 10:29 Order name: Packed RBC Leukored [facility] 01/09 09:32 Order name: XRAY Chest (1 view); Complete Time: 11:46 [facility] 01/09 09:32 Order name: EKG; Complete Time: 09:33 [facility] 01/09 09:32 Order name: Cardiac monitoring; Complete Time: 10:21 [facility] 01/09 09:32 Order name: EKG - Nurse/Tech; Complete Time: 10:21 [facility] 01/09 09:32 Order name: IV Saline Lock; Complete Time: 10:21 [facility] 01/09 09:32 Order name: Labs collected and sent; Complete Time: 10: [facility] 01/09 09:55 Order name: Abdomen ; Complete Time: 11:46 [facility] 01/09 10:42 Order name: Urine Dipstick-Ancillary; Complete Time: 11: [facility] 01/09 11:56 Order name: Antigen type [facility] 01/09 09:32 Order name: O2 Per Protocol; Complete Time: 10:21 [facility] 01/09 09:32 Order name: O2 Sat Monitoring; Complete Time: 10:21 wolfgang 01/09 09:32 Order name: Urine Dipstick-Ancillary (obtain specimen); Complete Time: 10:44 wolfgang EC:50 Rate is 108 beats/min. Rhythm is regular. QRS [place] is Normal. VT interval is normal. wolfgang QRS interval is normal. QT interval is normal. No Q waves. T waves are Normal. No ST changes noted. Clinical impression: Abnormal EKG without significant change and No evidence of ischemia. Interpreted by me. Reviewed by me. Administered Medications: 10:32 Drug: NS 0.9% 500 ml Route: IV; Rate: bolus; Site: right antecubital; kr3 10:32 Drug: Zosyn (piperacillin-tazobactam) 3.375 grams Route: IVPB; Infused Over: 60 mins; kr3 Site: right antecubital; 10:32 Drug: ProTONIX (pantoprazole) 40 mg Route: IVP; Site: right antecubital; kr3 11:06 Drug: NS 0.9% 1000 ml Route: IV; Rate: 125 ml/hr; Site: right antecubital; kr3 Disposition Summary: 01/09/22 12:16 Transfer Ordered Transfer Location: [facility] wolfgang Reason: Higher level of care wolfgang Condition: Fair(01/09/22 12:16) wolfgang Problem: new(01/09/22 12:16) wolfgang Symptoms: have improved(01/09/22 12:16) wolfgang Accepting Physician[facility] [place] [facility]01/09[place]22 14:39[place] kr3 Diagnosis - GI Bleed/ Gastrointestinal hemorrhage, unspecified(01/09/22 12:16) wolfgang - Anemia, unspecified(01/09/22 12:16) wolfgang - Diverticulosis of large intestine without perforation or abscess with bleeding wolfgang - Pneumonia due to other specified bacteria - left lower lobe(01/09/22 12:16) wolfgang - Type 2 diabetes mellitus with hyperglycemia wolfgang - Unspecified kidney failure - insufficency(01/09/22 12:16) wolfgang Forms: - Medication Reconciliation Form wolfgang - SBAR form wolfgang Signatures: Dispatcher [employer] EDGary Burciaga MD MD cha Reid, Kelley, RN RN kr3 Corrections: (The following items were deleted from the chart) 12:08 Inpatient Admission wolfgang wolfgang 12:08 Lokesh Arias wolfgang wolfgang 12:08 Telemetry/MedSurg (Inpatient) wolfgang wolfgang 12:08 Fair wolfgang wolfgang 12:08 new wolfgang wolfgang 12:08 are unchanged wolfgang wolfgang 12:08 Standard wolfgang wolfgang 12:08 wolfgang wolfgang 12:08 GI Bleed/ Gastrointestinal hemorrhage, unspecified - lower wolfgang wolfgang 12:08 Anemia, unspecified wolfgang wolfgang 12:08 Pneumonia due to other specified bacteria - left lower lobe wolfgang wolfgang 12:08 Unspecified kidney failure - insufficency [facility] wolfgang 12:16 12:16 [facility] [place] wolfgang 14:39 12:16 to [facility] kr3
--- NOTE | 2022-01-09 12:09 | ER ---
Nurse's Notes [facility] Name: Mike Peña Age: 86 yrs Sex: Male : 1935 Arrival Date: 01/09/2022 Time: 09:22 Bed 15 Private MD: Diagnosis: GI Bleed/ Gastrointestinal hemorrhage, unspecified;Anemia, unspecified;Diverticulosis of large intestine without perforation or abscess with bleeding;Pneumonia due to other specified bacteria-left lower lobe;Type 2 diabetes mellitus with hyperglycemia;Unspecified kidney failure-insufficency Presentation: 01/09 09:26 Chief complaint: EMS states: rectal bleeding that started at 2 am, first stool was kr3 maroon in color and has had 3 BM's since first that have progressively gotten worse and now are bright red. 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 Coronavirus screen: Vaccine status: Patient reports being unvaccinated. Ebola Screen: Patient denies exposure to infectious person. Patient denies travel to an Ebola-affected area in the 21 days before illness onset. Initial Sepsis Screen: Does the patient meet any 2 criteria? No. Patient's initial sepsis screen is negative. Does the patient have a suspected source of infection? No. Patient's initial sepsis screen is negative. Risk Assessment: Do you want to hurt yourself or someone else? Patient reports no desire to harm self or others. Onset of symptoms was January 09, 2022. 09:26 Method Of Arrival: EMS kr3 09:26 Acuity: BEKAH 3 kr3 Triage Assessment: 09:38 General: Appears in no apparent distress. comfortable, Behavior is calm, cooperative, kr3 appropriate for age. Pain: Denies pain. Historical: - Allergies: 09:36 No Known Allergies; kr3 - PMHx: 09:36 Cancer; carcinoma; Diabetes - NIDDM; Diverticulitis; Hypothyroidism; ischemic heart kr3 disease; - Immunization history:: Adult Immunizations not up to date. - Social history:: Smoking status: Patient/guardian denies using tobacco, the patient reports quitting approximately 53 years ago. - Family history:: not pertinent. Screenin:31 Abuse screen: Denies threats or abuse. Nutritional screening: No deficits noted. kr3 Tuberculosis screening: No symptoms or risk factors identified. Fall Risk IV access (20 points). Gait- Weak (10 pts.). Assessment: 10:50 General: Appears in no apparent distress. comfortable, Behavior is calm, cooperative, kr3 appropriate for age. Pain: Denies pain. Neuro: Level of Consciousness is awake, alert, obeys commands, Speech is normal. Cardiovascular: Patient's skin is warm and dry. Respiratory: Airway is patent Respiratory effort is even, unlabored, Respiratory pattern is regular, symmetrical. GI: Reports bloody stool. : No signs and/or symptoms were reported regarding the genitourinary system. EENT: No signs and/or symptoms were reported regarding the EENT system. Derm: Skin is intact. Musculoskeletal: Circulation, motion, and sensation intact. 11:50 Reassessment: No changes from previously documented assessment. Patient and/or family kr3 updated on plan of care and expected duration. Pain level reassessed. Patient is alert, oriented x 3, equal unlabored respirations, skin warm/dry/pink. 12:50 Reassessment: No changes from previously documented assessment. Patient and/or family kr3 updated on plan of care and expected duration. Pain level reassessed. Patient is alert, oriented x 3, equal unlabored respirations, skin warm/dry/pink. 13:50 Reassessment: No changes from previously documented assessment. Patient and/or family kr3 updated on plan of care and expected duration. Pain level reassessed. Patient is alert, oriented x 3, equal unlabored respirations, skin warm/dry/pink. Vital Signs: 09:28 BP 95 / 64; Pulse 108; Resp 16; Temp 96.9; Pulse Ox 98% on R/A; Weight 80.51 kg; Height ko1 6 ft. 1 in. (185.42 cm); 10:30 BP 107 / 64; Pulse 102; Resp 17; Pulse Ox 99% on R/A; kr3 11:30 BP 98 / 64; Pulse 107; Resp 17; Pulse Ox 100% on R/A; kr3 12:30 BP 99 / 68; Pulse 109; Resp 18; Temp 98.0; Pulse Ox 99% on R/A; kr3 13:30 BP 103 / 71; Pulse 108; Resp 16; Temp 97.9; Pulse Ox 100% ; kr3 14:15 BP 104 / 68; Pulse 106; Pulse Ox 100% on R/A; kr3 09:28 Body Mass Index 23.42 (80.51 kg, 185.42 cm) ko1 ED Course: 09:22 Patient arrived in ED. em1 09:26 Kristen Helm, RN is Primary Nurse. ko1 09:26 Primary Nurse role handed off by Kristen Helm, RN kr3 09:26 Whitney George, RN is Primary Nurse. kr3 09:27 Gary Ruano MD is Attending Physician. wolfgang 09:36 Triage completed. kr3 09:38 Arm band placed on right wrist. Patient placed in an exam room, on a stretcher. kr3 09:48 XRAY Chest (1 view) In Process Unspecified. EDMS 10:20 Bb Add On Sent. mm9 10:20 Type And Screen Sent. mm9 10:20 SARS RAPID Sent. mm9 10:20 Lactate w/ 2H reflex if indic. Sent. mm9 10:20 Basic Metabolic Panel Sent. mm9 10:21 CBC with Diff Sent. mm9 10:21 LFT's Sent. mm9 10:21 Lipase Sent. mm9 10:21 Magnesium Sent. mm9 10:21 NT PRO-BNP Sent. mm9 10:21 PT-INR Sent. mm9 10:21 Troponin HS Sent. mm9 10:22 Patient has correct armband on for positive identification. Placed in gown. Bed in low mm9 position. Call light in reach. Side rails up X2. Warm blanket given. duco polisher on. Pulse ox on. NIBP on. 10:23 Initial lab(s) drawn, by me, sent to lab. EKG done, by ED staff, reviewed by Gary Ruano MD COVID swab sent to lab. Inserted saline lock: 20 gauge in right antecubital area, using aseptic technique. Blood collected. 10:49 Notified ED physician of a critical lab result(s). lactate 2.3. kr3 11:03 Abdomen In Process Unspecified. EDMS 12:02 Lokesh Arias MD is Hospitalizing Provider. wolfgang 14:31 No provider procedures requiring assistance completed. Patient transferred, IV remains kr3 in place. Administered Medications: 10:32 Drug: NS 0.9% 500 ml Route: IV; Rate: bolus; Site: right antecubital; kr3 10:32 Drug: Zosyn (piperacillin-tazobactam) 3.375 grams Route: IVPB; Infused Over: 60 mins; kr3 Site: right antecubital; 10:32 Drug: ProTONIX (pantoprazole) 40 mg Route: IVP; Site: right antecubital; kr3 11:06 Drug: NS 0.9% 1000 ml Route: IV; Rate: 125 ml/hr; Site: right antecubital; kr3 Medication: 14:32 VIS not applicable for this client. kr3 Outcome: 12:08 Decision to Hospitalize by Provider. wolfgang 12:16 ER care complete, transfer ordered by . [facility] 14:32 [facility]red [facility] to [facility]. kr3 14:32 Condition: stable kr3 14:32 Instructed on the need for transfer. 14:39 Patient left the ED. kr3 Addendum: 01/12/2022 09:30 Addendum: Culture Results: Positive urine culture. [facility] 1 bed 8. Signatures: Dispatcher [employer] EDMS Brenda Ortega Corey, MD MD cha Martinez, Eric em1 Whitney George RN RN kr3 Kristen Helm, BIMAL RN paula1 Jannet Flores mm9 Corrections: (The following items were deleted from the chart) 01/09 10:52 10:50 Reassessment: kr3 kr3 14:31 14:19 BP 99 / 68; Pulse 109bpm; Resp 18bpm; Pulse Ox 99% RA; Temp 98.0F; kr3 kr3
[2022-01-09 15:08] VITALS: TEMP 97.9; O2SAT 100
[2022-01-09 15:09] VITALS: BP 104/68
--- NOTE | 2022-01-12 12:57 | EKG ---
Test Date: 2022-01-09 Test Time: 09:56:00 Rod Piler: THU MEASUREMENT RESULTS: Intervals: Rate: 108 ME: 168 QRSD: 182 QT: 420 QTc: 562 [place]: P: ME: 168 QRS: -67 T: 2 INTERPRETIVE STATEMENTS: Sinus tachycardia Right bundle branch block Left anterior fascicular block Bifascicular block Cannot rule out Inferior infarct, age undetermined Abnormal ECG Compared to ECG 10/29/2021 14:27:20 Left anterior fascicular block now present Bifascicular block now present Myocardial infarct finding now present Fusion complex(es) no longer present Short ME interval no longer present Left-axis deviation no longer present Electronically Signed On 01-12-22 12:52:02 DIRECTOR OF PRIMARY CARE by Jordan Brandon
== END 2022-01-09 14:39 | disposition short-term general hospital (02) ==
LOC: ER 09:18
DX: D64.9 Anemia, unspecified (principal); K57.31 Diverticulosis of large intestine without perforation or abscess with bleeding; J15.8 Pneumonia due to other specified bacteria; E11.65 Type 2 diabetes mellitus with hyperglycemia; N28.9 Disorder of kidney and ureter, unspecified; Z20.822 Contact with and (suspected) exposure to COVID-19
CPT/HCPCS: 93005; 87088; 85025; 87086; 80048; 36415; 86900; 83735; 86850; 85610; 86902 ×3; 86901; 80076; 83605; 87077; 87186; 81003; 84484; 83690; 86922 ×2; 83880; 74177; 71045; 96375; 96374; 99285; 87811; Q9967; J2543; C9113; P9016; J7040 ×2; J7030 ×2

== ENCOUNTER 2024-04-26 19:36 | Inpatient (IN) | payer OTHER ==
--- OUTSIDE RECORDS SUMMARY | 2024-04-26 19:38 | XMS REPORT | Clinical Summary ---
Author Name Unknown Organization [facility] Address [address] [place] [address] Care Team Providers Care Display Screen Fabricator Name Role Phone Arjun Soto MD, Eduardo M Primary Care Provider [phone] Anton Dye MD Unavailable UnavailAnton Carey MD Unavailable UnavailEmma Simon MD Unavailable Romina Giordano MD Unavailable Pipo Dominguez MD Unavailable Sang Soto MD, Sang King Unavailable [email or web address] Tevin Randykeonanne MEDICAL POLICY SPECIALIST Unavailable Haley Cisneros Unavailable [phone] Arjun Soto MD, Eduardo M Unavailable [phone] Allergies No known active allergies Medications * This document contains information received from the source organization and may not represent a complete record from that organization. aspirin 81 mg chewable tablet Chew 81 mg. Active DULoxetine (CYMBALTA) 60 mg capsule Take 60 mg by mouth. Active sitaGLIPtin-metF ORMIN (JANUMET) 50 mg-1,000 mg per tablet Take by mouth. Active pregabalin (LYRICA) 75 mg capsule Take 75 mg by mouth. Active magnesium oxide (MAOX) 400 mg tablet Take 400 mg by mouth. Active omeprazole (PriLOSEC) 40 MG capsule Take 40 mg by mouth. Active levothyroxine (SYNTHROID, LEVOTHROID) 100 mcg tablet Take by mouth. Active tamsulosin (FLOMAX) 0.4 mg 24 hr capsule Take 0.4 mg by mouth. Active valACYclovir (VALTREX) 500 mg tablet Take 500 mg by mouth. 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 Gender Identity Not on file Sexual Orientation Not on file Obstetrics History Plan of Treatment Health Maintenance Due Date Last Done Comments Pneumococcal Vaccine: 50+ Years (2 of 2 - PCV) 014 11/25/2012 COVID-19 Vaccine ( season) 2023 Influenza Vaccine (#1) 2023 03/03/2014 Insurance MEDICARE PART A AND B [employer] MEDICARE PART A AND B MEDICARE PART A AND B [employer] Care Teams Display Screen Fabricator Relationship Specialty Start Date End Date Newton Díaz Jr., MD [address] [place] [id number] [email or web address] PCP - General 04/17/15 Anton Dye MD [address] [place] [id number] PCP - External Referring 08/17/12 Anton Dye MD [address] [place] [phone] PCP - External Follow Up A 08/17/12 Emma Norman MD [address] [place] [address] [email or web address] Physician 04/24/15 Romina Giordano MD [address] [place] [phone] [email or web address] Physician 04/24/15 Pipo Dominguez MD [address] [place] [phone] [email or web address] Physician 04/24/15 Sang Domínguez Jr., MD [email or web address] Physician 04/24/15 Hong Abarca APRN [address] [place] [id number] [email or web address] Nurse Practitioner 04/24/15 Haley Cisneros AuD [address] [facility] [address] [place] [address] Agricultural Commodities Grader 04/24/15 Newton Díaz Jr., MD [address] [place] [address] [email or web address] Physician 04/24/15
[2024-04-26 20:02] LABS: Absolute Basophils 0.1 K/uL (0-0.5); Absolute Eosinophils 0.2 K/uL (0-0.5); Absolute Lymphocytes (CBC) 0.7 K/uL (0.7-4.9); Absolute Monocytes 0.4 K/uL (0.1-1.3); Absolute Neutrophil 4.9 K/uL (1.8-8.0); Basophils % 1.6 % (0-1.3); Eosinophils % 3.1 % (0-4.4); Hematocrit 37.6 % (39.6-49.0); Hemoglobin 12.8 g/dL (13.6-17.9); Lymphocytes % 11.4 % (15.3-44.8); MCH 34.6 pg (27.0-35.0); MCV 101.6 fL (80-100); MPV 7.5 fL (7.6-11.3); Monocytes % 5.9 % (3.3-12.3); Nucleated Red Blood Cells % 0.1 % (0-0); Platelets 262 thou/uL (152-406); Red Cell Distribution Width 16.7 % (12.1-15.2)
[2024-04-26 20:18] LABS: Albumin 3.2 g/dL (3.4-5.0); Albumin/Globulin Ratio 0.8 (1.1-1.8); Anion Gap 11.5 mEq/L (5.0-15.0); Bilirubin Direct 0.2 mg/dL (0-0.2); Bilirubin Indirect, Calculated 0.4 mg/dL (0.2-0.8); Bilirubin Total 0.6 mg/dL (0.2-1.0); Globulin 3.8 g/dL (2.3-3.5); Magnesium 2.1 mg/dL (1.6-2.4); Potassium 4.5 mEq/L (3.5-5.1)
[2024-04-26 20:40] LABS: PT Prothrombin Time 11.9 SECONDS (10-13.0); PTT, Activated Partial Thromb 32.2 SECONDS (27.2-37.4); Protime INR 1.05
--- NOTE | 2024-04-26 21:30 | RAD REPORT ---
EXAM: CT Ct Stroke Brain Wo Cont HISTORY: STROKE ALERT COMPARISON: 10/21/[address] MRI brain 10/22/2021 TECHNIQUE: Multiple contiguous axial images were obtained for a CT of the brain without contrast. Sag ittal and coronal reformats were performed. One or more of the following dose reduction techniques were used: Automated exposure control, adjus tment of the mA and kV according to patient size, and iterative reconstruction. Unless otherwise specified, incidental findings do not require dedicated imaging follow-up. FINDINGS: No evidence of hydrocephalus, intracranial hemorrhage, or extra-axial fluid collection. Right pontine focus of hypoattenuation corresponding to known prior infarct. No other evidence of acu te territorial infarct. Background Mild brain atrophy with mild periventricular and deep white matter chronic microvascular ischemic changes present. The calvarium is intact. The visualized paranasal sinuses and mastoid air cells are essentially clear . IMPRESSION: No evidence of acute intracranial abnormality. Stable right pontine remote infarct. THIS REPORT CONTAINS FINDINGS THAT MAY BE CRITICAL TO PATIENT CARE. I was not notified of these strok e alert status of the study. The findings were verbally communicated via telephone to Dr. Ingram on 04/26/2024 9:16PM.
--- NOTE | 2024-04-26 21:42 | RAD REPORT ---
EXAMINATION: CTA HEAD CLINICAL INDICATION: Male, 89 years old. STROKE ALERT. Slurred speech, generalized weakness for 3 day s. Facial droop and fall today TECHNIQUE: Axial CT images were obtained through the head after intravenous contrast utilizing angiog raphic protocol with 3D post-processing (maximum intensity projection images, volume rendered images and/or shaded surface rendered images). One or more of the following dose reduction technique s were used: Automated exposure control, adjustment of the mA and/or kV according to patient size, and/or iterative reconstruction. Unless otherwise specified, incidental findings do not require dedic ated imaging follow-up. COMPARISON: 10/21/2021 FINDINGS: ICA: The petrous, cavernous, and supraclinoid segments of the bilateral internal carotid arteries are normal. EVA: Anterior cerebral arteries are normal bilaterally. The anterior communicating artery is patent. MCA: Middle cerebral arteries are normal bilaterally. SHIPPING TRACK SUPERVISOR: Posterior cerebral arteries are normal bilaterally. Vertebrobasilar: The vertebral arteries are patent. The basilar artery is normal in appearance. 3D images confirm these findings. IMPRESSION: No evidence of large vessel occlusion or hemodynamically significant stenosis.
--- NOTE | 2024-04-26 21:46 | RAD REPORT ---
EXAMINATION: CT Neck Angio CLINICAL INDICATION: Male, 89 years old. Slurred speech. Facial droop and fall today cva TECHNIQUE: Axial CT images were obtained from the aortic arch to the skull base after intravenous con trast utilizing angiographic protocol. Multiplanar reformats, as well as 3D post-processing (maximum intensity projection images, volume rendered images and/or shaded surface rendered images) w ere generated and reviewed. One or more of the following dose reduction techniques were used: Automated exposure control, adjustment of the mA and/or kV according to patient size, and/or iterativ e reconstruction. Unless otherwise specified, incidental findings do not require dedicated imaging follow-up. COMPARISON: No prior exam. FINDINGS: AORTA: The imaged aortic arch is normal. Normal three-vessel configuration of the arch. CCA: No artifact The common carotid arteries are patent and normal in caliber. ICA/ECA: Bilateral internal and external carotid arteries are patent with mild to moderate atheroscle rotic calcific plaque along the proximal ICAs. There is no significant internal carotid artery stenosis. VERTEBRAL: The cervical vertebral arteries are patent to the skull base. Vertebral arteries are codom inant. SOFT TISSUE: There is a nonspecific soft tissue thickening along the right deep neck soft tissues wit h atrophy of the mandibular glands and the right parotid gland, may relate to sequelae of prior radiation, please correlate clinically. The visualized lung apices are clear apart from medial biapic al areas of scarring, may relate to radiation port changes. 3D images confirm these findings. IMPRESSION: No significant flow abnormality of the neck vessels is identified. NASCET criteria used to quantify ICA stenosis, with the following grading scheme: Mild 0-49% stenosis Moderate 50-69% stenosis Severe 70-99% stenosis Reference: [place] Symptomatic Carotid Endarterectomy Trial Collaborators; Nick GOOD, Shanell MCFARLAND, Anne RB, et al. Beneficial effect of carotid endarterectomy in symptomatic patients with high-grade carotid stenosis. N Engl J Med. 1990 15;325(7):445-53.
--- NOTE | 2024-04-26 21:46 | RAD REPORT ---
EXAMINATION: ONE VIEW CHEST XR CLINICAL INDICATION: Male, 89 years old.,cva TECHNIQUE: Frontal chest projection is submitted. Examination is limited by patient positioning and t echnique. COMPARISON: 01/09/2022 FINDINGS: The lungs are well inflated and clear apart from left basilar scarring or atelectasis. Mild backgroun d hyperlucency, stable. No pneumothorax or sizable effusion. The heart is normal in size. 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 IMPRESSION: No acute intrathoracic abnormalities.
[2024-04-26] MEDS ORDERED: NA CHLORIDE 0.9% 1,000 ML ONE (23:06)
--- NOTE | 2024-04-26 23:09 | ER ---
Nurse's Notes [facility] Name: Mike Peña Age: 89 yrs Sex: Male : 1935 Arrival Date: 04/26/2024 Time: 19:36 Bed 3 Private MD: Diagnosis: Transient ischemic attack, generalized weakness, acute fall at home, acute left elbow abrasion;Muscle weakness (generalized) Presentation: 04/26 19:39 Chief complaint: EMS states: CALLED TO PATIENT'S HOME FOR FALL. PT STATES THAT HE HAS cm10 BEEN HAVING SLURRED SPEECH AND GENERALIZED WEAKNESS FOR 3 DAYS. PT HAS NOTED LEFT SIDED FACIAL DROOP. PT REPORTS THAT HE LOST HIS FOOTING GETTING ON HIS BED AND FELL. PT HAS NOTED SKIN TEAR TO LEFT ELBOW. Coronavirus screen: Client denies travel out of the [place] in the last 14 days. Ebola Screen: Patient denies travel to an Ebola-affected area in the 21 days before illness onset. Initial Sepsis Screen: Does the patient meet any 2 criteria? No. Patient's initial sepsis screen is negative. Does the patient have a suspected source of infection? No. Patient's initial sepsis screen is negative. Risk Assessment: Do you want to hurt yourself or someone else? Patient reports no desire to harm self or others. Onset of symptoms was April 23, 2024. 19:39 Method Of Arrival: EMS: [facility] 10 19:39 Acuity: BEKAH 2 cm10 19:43 An acute neurological deficit is present. The charge nurse has been notified. The cm10 patients blood glucose was checked before arriving to the hospital and was found to be normal. Triage Assessment: 19:43 The onset of the patients symptoms was. General: Appears in no apparent distress. cm10 comfortable, Behavior is calm, cooperative. Pain: Complains of pain in left elbow Pain currently is 1 out of 10 on a pain scale. Neuro: No deficits noted. Level of Consciousness is awake, alert, obeys commands, Oriented to person, place, time, situation, Appropriate for age Speech is slurred, Facial droop on left, Reports. Respiratory: No deficits noted. Airway is patent Respiratory effort is even, unlabored, Respiratory pattern is regular, symmetrical. Derm: Wound noted left elbow Wound is Skin tear. Stroke Activation: Physician: ED Attending; Name: ; Notified At: ; Arrived At: Physician: Mid-Level Provider; Name: ; Notified At: ; Arrived At: Physician: [not used]; Name: ; Notified At: ; Arrived At: Physician: [not used]; Name: ; Notified At: ; Arrived At: Physician: [not used]; Name: ; Notified At: ; Arrived At: 22:15 n/a al5 Historical: - Allergies: 19:43 No Known Allergies; cm10 - PMHx: 19:43 Cancer; carcinoma; Diabetes - NIDDM; Diverticulitis; Hypothyroidism; ischemic heart cm10 disease; Cerebrovascular accident; - PSHx: 19:43 Coronary artery bypass graft; cm10 04/27 08:19 heart procedure "to prevent strokes"; aa5 - Immunization history:: Adult Immunizations up to date. - Infectious Disease History:: Denies. - Social history:: Smoking status: Patient denies any tobacco usage or history of. - Family history:: not pertinent. Screenin/12 19:45 [facility] ED Fall Risk Assessment (Adult) History of falling in the last 3 months, cm10 including since admission Yes- single mechanical fall (1 pt) Confusion or Disorientation No (0 pts) Intoxicated or Sedated No (0 pts) Impaired Gait Yes (1 pt) Mobility Assist Device Used No (0 pt) Altered Elimination No (0 pt) Score/Fall Risk Level 0 - 2 = Low Risk Oriented to surroundings, Maintained a safe environment, Hourly rounding (assess needs \\T\\ fall precautionary measures) done. Abuse screen: Denies threats or abuse. Denies injuries from another. Nutritional screening: No deficits noted. Tuberculosis screening: No symptoms or risk factors identified. 20:20 [place] [facility] Protocol Exclusion Criteria: Unable to remain alert for testing: No NPO cm10 for medical/surgical reason by provider order No Tracheostomy tube present No No thin liquids due to preexisting dysphagia/baseline modified diet thickened liquids No Brief Cognitive Screen What is your name? Normal, Where are you right now? Normal, What year is it? Normal. Oral Mechanism Examination Facial Symmetry: Normal, Motion: Normal, Lip Closure: Normal, Oral Mechanism Result: Normal. 3 oz Water Swallow Challenge: Pt able to drink all water without stopping, coughing, choking or throat clearing: Yes Result: PASS. Assessment: 22:15 VAN Scoring: Arm Drift: Patients demonstrates NO arm weakness. Patient is VAN Negative. al5 Visual Disturbance: No visual disturbance noted. Aphasia: No aphasia noted. Neglect: No neglect noted. [place] [facility] Protocol Exclusion Criteria: Exclusion Criteria Result: Proceed Brief Cognitive Screen What is your name? Normal, Where are you right now? Normal, What year is it? Normal. Oral Mechanism Examination Facial Symmetry: smile is asymmetrical, puckering of lips is normal Motion: Normal, Lip Closure: Normal, Oral Mechanism Result: Normal. 3 oz Water Swallow Challenge: Pt able to drink all water without stopping, coughing, choking or throat clearing: Yes Result: PASS MD Notified: Raghavendra Ingram MD. TNKase (Tenecteplase) Screening: Not Applicable. 22:15 General: Appears in no apparent distress. comfortable, Behavior is calm, cooperative. al5 Pain: Denies pain. Neuro: Level of Consciousness is awake, alert, obeys commands, Oriented to person, place, time, situation, Moves all extremities. Full function Speech is slurred, Facial droop on left, Pupils are PERRLA, Intact. Cardiovascular: Capillary refill < 3 seconds Patient's skin is warm and dry. Respiratory: Airway is patent Respiratory effort is even, unlabored, Respiratory pattern is regular, symmetrical. GI: No signs and/or symptoms were reported involving the gastrointestinal system. : No signs and/or symptoms were reported regarding the genitourinary system. EENT: No signs and/or symptoms were reported regarding the EENT system. Derm: Skin is intact, Skin is pink, warm \\T\\ dry. normal. Musculoskeletal: No signs and/or symptoms reported regarding the musculoskeletal system. 23:16 Reassessment: Patient appears in no apparent distress at this time. No changes from al5 previously documented assessment. Patient and/or family updated on plan of care and expected duration. Pain level reassessed. Patient is alert, oriented x 3, equal unlabored respirations, skin warm/dry/pink. patient admitted at this time. Vital Signs: 19:39 BP 126 / 65; Pulse 69; Resp 15; Temp 97.7(O); Pulse Ox 99% on R/A; Weight 81.65 kg; cm10 Height 6 ft. 1 in. ; Pain 1/10; 20:15 BP 99 / 63; Pulse 69; Resp 15; Pulse Ox 99% ; cm10 19:39 Body Mass Index 23.75 (81.65 kg, 185.42 cm) cm10 19:39 Pain Scale: Adult cm10 Ji Coma Score: 23:05 Eye Response: spontaneous(4). Motor Response: obeys commands(6). Verbal Response: sp4 oriented(5). Total: 15. NIH Stroke Scale Scores: 19:45 NIHSS Score: 3 cm10 22:15 NIHSS Score: 3 al5 23:05 NIHSS Score: 0 sp4 ED Course: 19:39 Patient arrived in ED. cm10 19:42 Triage completed. cm10 19:44 Adriano Rodriguez MD is Attending Physician. rt 19:45 Arm band placed on right wrist. Patient placed in an exam room, on a stretcher, on cm10 bilingual nanny, on pulse oximetry. EKG completed in triage. Results shown to MD. 19:46 Patient has correct armband on for positive identification. Placed in gown. Bed in low cm10 position. Call light in reach. Side rails up X2. Client placed on continuous cardiac and pulse oximetry monitoring. NIBP monitoring applied. tax record clerk on. 19:48 Brittany Flores, RN is Primary Nurse. cm10 19:50 Initial lab(s) drawn, by me, sent to lab. EKG done, by ED staff, reviewed by Adriano Rodriguez MD. Inserted saline lock: 20 gauge in right antecubital area, using aseptic technique. Blood collected. Flushed with 10 mL NS. 19:[address] via stretcher. cm10 19:53 RN/VENETIAN BLIND MACHINE OPERATOR escort patient out of department to CT scan. cm10 20:09 CT Stroke Brain w/o Contrast In Process Unspecified. EDMS 20:13 CT Head Angio In Process Unspecified. EDMS 20:13 CT Neck Angio In Process Unspecified. EDMS 20:17 Patient moved back from CT. cm10 20:33 Stroke CXR 1 View In Process Unspecified. EDMS 21:12 Attending Physician role handed off by Adriano Rodriguez MD sp4 21:12 Raghavendra Ingram MD is Attending Physician. sp4 22:10 Report given to Tereza Severino RN. cm10 22:15 Provided Education on: plan of care. al5 22:15 No provider procedures requiring assistance completed. al5 23:09 Rashad Gonzalez MD is Hospitalizing Provider. sp4 23:18 Patient admitted, IV remains in place. al5 04/27 00:07 Dressings: non-adherent dressing x 1 left elbow desirae wrap. Wound care: to skin tear al5 located on left elbow was irrigated with normal saline. 08:11 Primary Nurse role handed off by Brittany Flores, RN bp 08:11 Jairo Willingham, RN is Primary Nurse. bp 08:59 Warm blanket given. Verbal reassurance given. am7 Administered Medications: 04/26 23:09 Drug: NS 0.9% IV 1000 ml IV at 100 ml/hr Per protocol; to be given as a bolus over 60 al5 minutes Route: IV; Rate: 100 ml/hr; Site: right antecubital; 04/27 00:07 Follow up: Response: No adverse reaction; IV Status: Infusion continued upon admission al5 Medication: 04/26 19:46 VIS not applicable for this client. cm10 Point of Care Testing: Blood Glucose: 19:58 Blood Glucose: 104 mg/dL; bm8 Ranges: Outcome: 23:09 Decision to Hospitalize by Provider. sp4 23:16 Admitted to ER Hold. Please see [facility] for further documentation. al5 23:16 Condition: stable 23:16 Instructed on the need for admit, 04/27 12:22 Patient left the ED. cm10 NIH Stroke Scale - NIH Stroke Score Date: 04/26/2024 Time: 19:45 Total Score = 3 10. Dysarthria (speech clarity - read or repeat words) - 1(Mild to Moderate) 11. Extinction and Inattention (visual/tactile/auditory/spatial/personal) - 0(No abnormality) 1a. Level of Consciousness (LOC) - 0(Alert) 1b. Level of Consciousness (LOC) (Month \\T\\ Age) - 0(Both) 1c. LOC Commands (Open \\T\\ Closes Eyes/International Trade Specialist) - 0(Both) 2. Best Gaze (Lateral Gaze Paresis) - 0(Normal) 3. Visual Field Loss - 0(No visual loss) 4. Facial Palsy - 2(Partial paralysis) 5a. Left Arm: Motor (10-second hold) - 0(No drift) 5b. Right Arm: Motor (10-second hold) - 0(No drift) 6a. Left Leg: Motor (5-second hold - always test supine) - 0(No drift) 6b. Right Leg: Motor (5-second hold - always test supine) - 0(No drift) 7. Limb Ataxia (finger/nose \\T\\ heel/oreilly - test with eyes open) - 0(Absent) 8. Sensory Loss (pinprick arms/legs/face) - 0(Normal) 9. Best Language: Aphasia (description/naming/reading) - 0(No aphasia) Initials: cm10 NIH Stroke Scale - NIH Stroke Score Date: 04/26/2024 Time: 22:15 Total Score = 3 10. Dysarthria (speech clarity - read or repeat words) - 0(Normal) 11. Extinction and Inattention (visual/tactile/auditory/spatial/personal) - 0(No abnormality) 1a. Level of Consciousness (LOC) - 0(Alert) 1b. Level of Consciousness (LOC) (Month \\T\\ Age) - 0(Both) 1c. LOC Commands (Open \\T\\ Closes Eyes/International Trade Specialist) - 0(Both) 2. Best Gaze (Lateral Gaze Paresis) - 0(Normal) 3. Visual Field Loss - 0(No visual loss) 4. Facial Palsy - 2(Partial paralysis) 5a. Left Arm: Motor (10-second hold) - 0(No drift) 5b. Right Arm: Motor (10-second hold) - 0(No drift) 6a. Left Leg: Motor (5-second hold - always test supine) - 0(No drift) 6b. Right Leg: Motor (5-second hold - always test supine) - 0(No drift) 7. Limb Ataxia (finger/nose \\T\\ heel/oreilly - test with eyes open) - 0(Absent) 8. Sensory Loss (pinprick arms/legs/face) - 0(Normal) 9. Best Language: Aphasia (description/naming/reading) - 1(Mild to moderate aphasia) Initials: al5 NIH Stroke Scale - NIH Stroke Score Date: 04/26/2024 Time: 23:05 Total Score = 0 10. Dysarthria (speech clarity - read or repeat words) - 0(Normal) 11. Extinction and Inattention (visual/tactile/auditory/spatial/personal) - 0(No abnormality) 1a. Level of Consciousness (LOC) - 0(Alert) 1b. Level of Consciousness (LOC) (Month \\T\\ Age) - 0(Both) 1c. LOC Commands (Open \\T\\ Closes Eyes/International Trade Specialist) - 0(Both) 2. Best Gaze (Lateral Gaze Paresis) - 0(Normal) 3. Visual Field Loss - 0(No visual loss) 4. Facial Palsy - 0(Normal) 5a. Left Arm: Motor (10-second hold) - 0(No drift) 5b. Right Arm: Motor (10-second hold) - 0(No drift) 6a. Left Leg: Motor (5-second hold - always test supine) - 0(No drift) 6b. Right Leg: Motor (5-second hold - always test supine) - 0(No drift) 7. Limb Ataxia (finger/nose \\T\\ heel/oreilly - test with eyes open) - 0(Absent) 8. Sensory Loss (pinprick arms/legs/face) - 0(Normal) 9. Best Language: Aphasia (description/naming/reading) - 0(No aphasia) Initials: sp4 Signatures: Dispatcher [employer] EDMendy Simmons RN RN aa5 Jairo Willingham RN RN bp Adriano Rodriguez MD MD rt Raghavendra Ingram MD MD sp4 Brittany Flores RN RN cm10 Kojo Ortiz RN RN bm8 Tereza De Santiago RN RN al5 Bren Serna am7 Corrections: (The following items were deleted from the chart) 04/26 22:10 22:09 [place] [facility] Protocol Exclusion Criteria: Unable to remain alert for cm10 testing: No NPO for medical/surgical reason by provider order No Tracheostomy tube present No No thin liquids due to preexisting dysphagia/baseline modified diet thickened liquids No Brief Cognitive Screen What is your name? Normal, Where are you right now? Normal, What year is it? Normal. Oral Mechanism Examination Facial Symmetry: Normal, Motion: Normal, Lip Closure: Normal, Oral Mechanism Result: Normal. 3 oz Water Swallow Challenge: Pt able to drink all water without stopping, coughing, choking or throat clearing: Yes Result: PASS cm10
--- NOTE | 2024-04-26 23:09 | EDPHYS ---
Physician Documentation [facility] Name: Mike Peña Age: 89 yrs Sex: Male : 1935 Arrival Date: 04/26/2024 Time: 19:36 Bed 3 Private MD: ED Physician Raghavendra Ingram HPI: 04/26 20:49 This 89 yrs old Male presents to ER via EMS with complaints of S/S of Possible Stroke. rt 20:49 Patient presents to the ED with 3 days of left-sided weakness, progressively worsening, rt reportedly has a slurred speech, mild aphasia and left-sided facial droop. The patient denies other weakness, acute complaints, symptoms are moderate in severity, no other aggravating or alleviating factors.. Historical: - Allergies: 19:43 No Known Allergies; cm10 - PMHx: 19:43 Cancer; carcinoma; Diabetes - NIDDM; Diverticulitis; Hypothyroidism; ischemic heart cm10 disease; Cerebrovascular accident; - PSHx: 19:43 Coronary artery bypass graft; cm10 04/27 08:19 heart procedure "to prevent strokes"; aa5 - Immunization history:: Adult Immunizations up to date. - Infectious Disease History:: Denies. - Social history:: Smoking status: Patient denies any tobacco usage or history of. - Family history:: not pertinent. ROS: 04/26 20:49 Constitutional: Negative for fever, chills, and weight loss, Cardiovascular: Negative rt for chest pain, palpitations, and edema, Respiratory: Negative for shortness of breath, cough, wheezing, and pleuritic chest pain, Abdomen/GI: Negative for abdominal pain, nausea, vomiting, diarrhea, and constipation, MS/Extremity: Negative for injury and deformity, Neuro: Positive for speech changes, Facial droop, weakness, Exam: 20:49 Constitutional: This is a well developed, well nourished patient who is awake, alert, rt and in no acute distress. Head/Face: Normocephalic, atraumatic. Chest/axilla: Normal chest wall appearance and motion. Nontender with no deformity. No lesions are appreciated. Cardiovascular: Regular rate and rhythm with a normal S1 and S2. No gallops, murmurs, or rubs. Normal PMI, no JVD. No pulse deficits. Respiratory: Lungs have equal breath sounds bilaterally, clear to auscultation and percussion. No rales, rhonchi or wheezes noted. No increased work of breathing, no retractions or nasal flaring. Abdomen/GI: Soft, non-tender, with normal bowel sounds. No distension or tympany. No guarding or rebound. No evidence of tenderness throughout. Skin: Warm, dry with normal turgor. Normal color with no rashes, no lesions, and no evidence of cellulitis. MS/ Extremity: Pulses equal, no cyanosis. Neurovascular intact. Full, normal range of motion. 20:49 ECG was reviewed by the Attending Physician. 20:49 Neuro: Left-sided facial droop, slurred speech with mild aphasia noted, cranial nerves otherwise intact, no visual field deficits, strength and sensation intact in upper and lower extremities, no ataxia. Nose, 23:09 Radiologist reports: see report below sp4 Vital Signs: 19:39 BP 126 / 65; Pulse 69; Resp 15; Temp 97.7(O); Pulse Ox 99% on R/A; Weight 81.65 kg; cm10 Height 6 ft. 1 in. ; Pain 1/10; 20:15 BP 99 / 63; Pulse 69; Resp 15; Pulse Ox 99% ; cm10 19:39 Body Mass Index 23.75 (81.65 kg, 185.42 cm) cm10 19:39 Pain Scale: Adult cm10 NIH Stroke Scale Scores: 19:45 NIHSS Score: 3 cm10 22:15 NIHSS Score: 3 al5 23:05 NIHSS Score: 0 sp4 [place] Coma Score: 23:05 Eye Response: spontaneous(4). Motor Response: obeys commands(6). Verbal Response: sp4 oriented(5). Total: 15. MDM: 19:46 Medical Screening Exam initiated rt 23:05 Differential diagnosis: CVA, TIA, Dementia, paralysis, Alzheimer disease, Parkinson sp4 disease, metabolic disorder, drug effects. TNKase (Tenecteplase) Screening: Contraindications: Other: Out of the window for therapy. Data reviewed: vital signs, nurses notes, EMS record, old medical records, lab test result(s), EKG, radiologic studies. Consideration of Admission/Observation Patient was admitted/placed on observation. Escalation of care including admission/observation considered. ED course: FINDINGS: No evidence of hydrocephalus, intracranial hemorrhage, or extra-axial fluid collection. Right pontine focus of hypoattenuation corresponding to known prior infarct. No other evidence of acute territorial infarct. Background Mild brain atrophy with mild periventricular and deep white matter chronic microvascular ischemic changes present. The calvarium is intact. The visualized paranasal sinuses and mastoid air cells are essentially clear. IMPRESSION: No evidence of acute intracranial abnormality. Stable right pontine remote infarct. THIS REPORT CONTAINS FINDINGS THAT MAY BE CRITICAL TO PATIENT CARE. I was not notified of these stroke alert status of the study. The findings were verbally communicated via telephone to Dr. Ingram on 04/26/2024 9:16PM. ED course: COMPARISON: No prior exam. FINDINGS: AORTA: The imaged aortic arch is normal. Normal three-vessel configuration of the arch. CCA: No artifact The common carotid arteries are patent and normal in caliber. ICA/ECA: Bilateral internal and external carotid arteries are patent with mild to moderate atherosclerotic calcific plaque along the proximal ICAs. There is no significant internal carotid artery stenosis. VERTEBRAL: The cervical vertebral arteries are patent to the skull base. Vertebral arteries are codominant. SOFT TISSUE: There is a nonspecific soft tissue thickening along the right deep neck soft tissues with atrophy of the mandibular glands and the right parotid gland, may relate to sequelae of prior radiation, please correlate clinically. The visualized lung apices are clear apart from medial biapical areas of scarring, may relate to radiation port changes. 3D images confirm these findings. IMPRESSION: No significant flow abnormality of the neck vessels is identified. NASCET criteria used to quantify ICA stenosis, with the following grading scheme: . ED course: CLINICAL INDICATION: Male, 89 years old. STROKE ALERT. Slurred speech, generalized weakness for 3 days. Facial droop and fall today TECHNIQUE: Axial CT images were obtained through the head after intravenous contrast utilizing angiographic protocol with 3D post-processing (maximum intensity projection images, volume rendered images and/or shaded surface rendered images). One or more of the following dose reduction techniques were used: Automated exposure control, adjustment of the mA and/or kV according to patient size, and/or iterative reconstruction. Unless otherwise specified, incidental findings do not require dedicated imaging follow-up. COMPARISON: 10/21/2021 FINDINGS: ICA: The petrous, cavernous, and supraclinoid segments of the bilateral internal carotid arteries are normal. EVA: Anterior cerebral arteries are normal bilaterally. The anterior communicating artery is patent. MCA: Middle cerebral arteries are normal bilaterally. BUSINESS SOLUTIONS ANALYST: Posterior cerebral arteries are normal bilaterally. Vertebrobasilar: The vertebral arteries are patent. The basilar artery is normal in appearance. 3D images confirm these findings. IMPRESSION: No evidence of large vessel occlusion or hemodynamically significant stenosis. . ED course: CLINICAL INDICATION: Male, 89 years old.,cva TECHNIQUE: Frontal chest projection is submitted. Examination is limited by patient positioning and technique. COMPARISON: 01/09/2022 FINDINGS: The lungs are well inflated and clear apart from left basilar scarring or atelectasis. Mild background hyperlucency, stable. No pneumothorax or sizable effusion. The heart is normal in size. 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 IMPRESSION: No acute intrathoracic abnormalities.. 23:10 ED course: Patient states his slurring of the speech has improved. NIH SS 0 at this sp4 time patient stable for admission for TIA and further assessment.. 04/26 19:46 Order name: Basic Metabolic Panel; Complete Time: 20:42 rt 04/26 19:46 Order name: CBC with Diff; Complete Time: 20:42 rt 04/26 19:46 Order name: Hepatic Function; Complete Time: 20:42 rt 04/26 19:46 Order name: High Sensitivity Troponin; Complete Time: 20:42 rt 04/26 19:46 Order name: Magnesium; Complete Time: 20:42 rt 04/26 19:46 Order name: Protime (+inr); Complete Time: 20:42 rt 04/26 19:46 Order name: Ptt, Activated; Complete Time: 20:42 rt 04/26 19:53 Order name: Glucose, Ancillary Testing; Complete Time: 20:42 EDMS 04/26 21:19 Order name: CREATININE WHOLE BLOOD; Complete Time: 22:26 EDMS 04/27 08:57 Order name: Glucose, Ancillary Testing EDMS 04/26 19:46 Order name: CT Head Angio; Complete Time: 22:26 rt 04/26 19:46 Order name: CT Neck Angio; Complete Time: 22:26 rt 04/26 19:46 Order name: CT Stroke Brain w/o Contrast; Complete Time: 22:26 rt 04/26 19:46 Order name: Stroke CXR 1 View; Complete Time: 22:26 rt 04/26 23:24 Order name: Echo with Doppler EDMS 04/27 09:13 Order name: MRI EDCO 04/26 23:24 Order name: IRF Screen [facility] 04/26 23:24 Order name: Physical Therapy Consult [facility] 04/26 23:24 Order name: Speech Therapy Consult [facility] 04/26 19:46 Order name: Accucheck; Complete Time: 19:46 rt 04/26 19:46 Order name: Cardiac monitoring; Complete Time: 19:46 rt 04/26 19:46 Order name: EKG - Nurse/Tech; Complete Time: 19:46 rt 04/26 19:46 Order name: IV Saline Lock; Complete Time: 19:46 rt 04/26 19:46 Order name: Labs collected and sent; Complete Time: 19:46 rt 04/26 19:46 Order name: NPO; Complete Time: 19:46 rt 04/26 19:46 Order name: O2 Per Protocol; Complete Time: 19:46 rt 04/26 19:46 Order name: O2 Sat Monitoring; Complete Time: 19:46 rt 04/26 19:46 Order name: Stroke Swallow Screen; Complete Time: 20:20 rt 04/26 23:10 Order name: Wound Care; Complete Time: 00:07 sp4 EC:49 Rate is 67 beats/min. Rhythm is regular, 1st Degree Block with PACs, Right bundle rt branch block. ID interval is normal. QRS interval is normal. QT interval is normal. No Q waves. No ST changes noted. Interpreted by me. Administered Medications: 23:09 Drug: NS 0.9% IV 1000 ml IV at 100 ml/hr Per protocol; to be given as a bolus over 60 al5 minutes Route: IV; Rate: 100 ml/hr; Site: right antecubital; 04/27 00:07 Follow up: Response: No adverse reaction; IV Status: Infusion continued upon admission al5 Point of Care Testing: Blood Glucose: 04/26 19:58 Blood Glucose: 104 mg/dL; bm8 Ranges: Critical Glucose Levels:Adult <50 mg/dl or >400 mg/dl <40 mg/dl or >180 mg/dl Disposition Summary: 04/26/24 23:09 Hospitalization Ordered Notes: Hospitalization Status: Inpatient Admission sp4 Provider: Rashad Gonzalez sp4 Condition: Stable sp4 Problem: new sp4 Symptoms: have improved sp4 Bed/Room Type: Standard sp4 Location: Telemetry/MedSurg (Inpatient)(04/27/24 12:03) 6 Room Assignment: 221(04/27/24 12:03) [facility] Diagnosis - Transient ischemic attack, generalized weakness, acute fall at home, acute left sp4 elbow abrasion - Muscle weakness (generalized) sp4 Forms: - Medication Reconciliation Form sp4 - SBAR form sp4 - Leadership Thank You Letter sp4 NIH Stroke Scale - NIH Stroke Score Date: 04/26/2024 Time: 19:45 Total Score = 3 10. Dysarthria (speech clarity - read or repeat words) - 1(Mild to Moderate) 11. Extinction and Inattention (visual/tactile/auditory/spatial/personal) - 0(No abnormality) 1a. Level of Consciousness (LOC) - 0(Alert) 1b. Level of Consciousness (LOC) (Month \\T\\ Age) - 0(Both) 1c. LOC Commands (Open \\T\\ Closes Eyes/Radiology Nurse) - 0(Both) 2. Best Gaze (Lateral Gaze Paresis) - 0(Normal) 3. Visual Field Loss - 0(No visual loss) 4. Facial Palsy - 2(Partial paralysis) 5a. Left Arm: Motor (10-second hold) - 0(No drift) 5b. Right Arm: Motor (10-second hold) - 0(No drift) 6a. Left Leg: Motor (5-second hold - always test supine) - 0(No drift) 6b. Right Leg: Motor (5-second hold - always test supine) - 0(No drift) 7. Limb Ataxia (finger/nose \\T\\ heel/oreilly - test with eyes open) - 0(Absent) 8. Sensory Loss (pinprick arms/legs/face) - 0(Normal) 9. Best Language: Aphasia (description/naming/reading) - 0(No aphasia) Initials: cm10 NIH Stroke Scale - NIH Stroke Score Date: 04/26/2024 Time: 22:15 Total Score = 3 10. Dysarthria (speech clarity - read or repeat words) - 0(Normal) 11. Extinction and Inattention (visual/tactile/auditory/spatial/personal) - 0(No abnormality) 1a. Level of Consciousness (LOC) - 0(Alert) 1b. Level of Consciousness (LOC) (Month \\T\\ Age) - 0(Both) 1c. LOC Commands (Open \\T\\ Closes Eyes/Radiology Nurse) - 0(Both) 2. Best Gaze (Lateral Gaze Paresis) - 0(Normal) 3. Visual Field Loss - 0(No visual loss) 4. Facial Palsy - 2(Partial paralysis) 5a. Left Arm: Motor (10-second hold) - 0(No drift) 5b. Right Arm: Motor (10-second hold) - 0(No drift) 6a. Left Leg: Motor (5-second hold - always test supine) - 0(No drift) 6b. Right Leg: Motor (5-second hold - always test supine) - 0(No drift) 7. Limb Ataxia (finger/nose \\T\\ heel/oreilly - test with eyes open) - 0(Absent) 8. Sensory Loss (pinprick arms/legs/face) - 0(Normal) 9. Best Language: Aphasia (description/naming/reading) - 1(Mild to moderate aphasia) Initials: al5 NIH Stroke Scale - NIH Stroke Score Date: 04/26/2024 Time: 23:05 Total Score = 0 10. Dysarthria (speech clarity - read or repeat words) - 0(Normal) 11. Extinction and Inattention (visual/tactile/auditory/spatial/personal) - 0(No abnormality) 1a. Level of Consciousness (LOC) - 0(Alert) 1b. Level of Consciousness (LOC) (Month \\T\\ Age) - 0(Both) 1c. LOC Commands (Open \\T\\ Closes Eyes/Radiology Nurse) - 0(Both) 2. Best Gaze (Lateral Gaze Paresis) - 0(Normal) 3. Visual Field Loss - 0(No visual loss) 4. Facial Palsy - 0(Normal) 5a. Left Arm: Motor (10-second hold) - 0(No drift) 5b. Right Arm: Motor (10-second hold) - 0(No drift) 6a. Left Leg: Motor (5-second hold - always test supine) - 0(No drift) 6b. Right Leg: Motor (5-second hold - always test supine) - 0(No drift) 7. Limb Ataxia (finger/nose \\T\\ heel/oreilly - test with eyes open) - 0(Absent) 8. Sensory Loss (pinprick arms/legs/face) - 0(Normal) 9. Best Language: Aphasia (description/naming/reading) - 0(No aphasia) Initials: sp4 Signatures: Dispatcher [employer] EDMS Mendy Rabago, RN RN aa5 Adriano Rodriguez MD MD Betzy Roa [facility] Raghavendra Ingram MD MD sp4 Brittany Flores RN RN cm10 [place], [place] Tereza De Santiago RN RN al5 Corrections: (The following items were deleted from the chart) 19:46 19:46 CT-STROKE BRAIN W/O CONTRAST+CT.RAD.BRZ ordered. EDMS EDMS 19:46 19:46 Chest Single View+RAD.RAD.BRZ ordered. EDMS MS 04/27 01:31 04/26 23:09 Telemetry/MedSurg (observation) 4 [facility] 04/27 01:31 04/26 23:09 sp4 [facility] 04/27 12:03 01:31 [facility] ER HOLD [place] [address] 12:03 01:31 ERHOLD- [place] [address]
--- NOTE | 2024-04-26 23:15 | P.HP ---
Certification for Inpatient Patient admitted to: Observation With expected LOS: <2 Midnights Practitioner: I am a practitioner with admitting privileges, knowledge of patient current condition, hospital course, and medical plan of care. Services: Services provided to patient in accordance with Admission requirements found in Title 42 Section 412.3 of the Code of Federal Regulations Patient History Date of Service: 04/27/24 Reason for admission: Generalised weakness History of Present Illness: 89 yrs old Male with past medical history of diabetes, hypertension ,hypothyroidism, hyperlipidemia, afib, and CAD s/p CABG, history of diverticulitis, ischemic heart disease, history of CVA, history of cancer who presented to the ED with weakness of the left side of the body which was progressively getting worse over the last 3 days associated with some slurring speech and mild aphasia and left-sided facial droop. Patient denies any headache. No fall. Weakness has been progressively getting worse and was brought to ER. Patient denies any fever or chills. No nausea vomiting or diarrhea. No sick contacts. Patient was assessed in the ER and was admitted for possible CVA/TIA He states he is no longer having any difficulty speaking. Denies history of CVA. He is admitted for further management of CVA rule out. Allergies No Known Drug Allergies Allergy (Verified 10/15/21 21:33) Unknown No Known Allergies Allergy (Uncoded 06/18/17 11:31) Unknown Home medications list reviewed: Yes Home Medications: Duloxetine HCl [Cymbalta] 60 mg PO BEDTIME 11/19/12 Pregabalin [Lyrica*] 75 mg PO QID 11/19/12 Sitagliptin Phos/Metformin HCl [Janumet 50-1,000 mg Tablet] 1 each PO BID 11/19/12 Tamsulosin [Flomax*] 0.4 mg PO DAILY 11/19/12 Valacyclovir [Valtrex*] 500 mg PO BEDTIME 11/19/12 Levothyroxine [Synthroid*] 125 mcg PO [id number] 10/22/21 Amiodarone HCl [Cordarone*] 400 mg PO BID tab 11/04/21 Apixaban [Eliquis] 5 mg PO BID 11/04/21 Aspirin [Aspirin EC 81 MG] 81 mg PO DAILY #30 tab 11/04/21 Atorvastatin Calcium [Lipitor] 40 mg PO BEDTIME tab 11/04/21 Folic Acid 1 mg PO DAILY #30 tab 11/04/21 Glucerna 1.5 Nando 237 ml FT 5XD bot 11/04/21 Insulin -Regular Human [Novolin -R*] See Protocol SQ AC ml 11/04/21 Mometasone/Formoterol [Dulera 200 Mcg/5 Mcg Inhaler] 2 puff IH BID inhaler 11/04/21 Pantoprazole [Protonix Tab*] 40 mg PO DAILY tab 11/04/21 - Past Medical/Surgical History Diabetic: Yes Past Medical History: Reviewed- Non-Contributory -: NIDDM -: Diverticulitus -: Hyperlipidemia -: Neuropathy -: Shingles -: Ischemic Heart Disease -: tounge cancer stage four -: hypothyroidism Past Surgical History: Reviewed- Non-Contributory -: triple bypass -: cholecystectomy -: c6-c7 neck surgery -: r inguinal hernia -: l sided hernia -: nodule removal from left side of neck Psychosocial/ Personal History: Patient is . He lives at home alone. - Family History Family History: Reviewed- Non-Contributory - Social History Smoking Status: Former smoker Alcohol use: No CD- Drugs: No Caffeine use: No Review of Systems 10-point ROS is otherwise unremarkable Physical Examination - Vital Signs Temperature: 97.8 F Blood Pressure: 132/80 Pulse: 68 Respirations: 18 Pulse Ox (%): 94 - Physical Exam General: Alert, In no apparent distress, Oriented x3 HEENT: Atraumatic, Normocephalic Neck: Supple, No LAD Respiratory: Clear to auscultation bilaterally, Normal air movement Cardiovascular: Regular rate/rhythm, Normal S1 S2 Capillary refill: <2 Seconds Gastrointestinal: Soft and benign, W/out hepatosplenomegaly Musculoskeletal: No clubbing, No swelling Integumentary: No rashes Neurological: Other (Alert,Awake , Non focal ) Lymphatics: Other (no generalized lymphadenopathy ) - Studies Laboratory Data (last 24 hrs) 04/26/24 04/26/24 04/26/24 19:49 19:49 19:49 WBC 6.30 Hgb 12.8 L Hct 37.6 L Plt Count 262 PT 11.9 INR 1.05 APTT 32.2 Sodium 137 Potassium 4.5 BUN 27 H Creatinine 2.04 H Glucose 117 H Magnesium 2.1 Total Bilirubin 0.6 AST 26 ALT 29 Alkaline Phosphatase 80 Assessment and Plan - Plan CVA/TIA No focal weakness Numbness of left-sided body Started on aspirin and statin CT CTA findings noted MRI brain ordered Monitor neuro vital signs Monitor under telemetry Neurology consult Atrial fibrillation Monitor closely on telemetry Continue home medications Hypertension Antihypertensives titrated Continue home medications and titrate as needed Hyperlipidemia Continue statin Acute kidney injury Monitor renal parameters Electrolytes monitor and replace accordingly Diabetes Insulin sliding scale Accu-Chek before every meal and at bedtime CAD status post CABG Monitor closely under telemetry Patient denies any chest pain at this time Continue home medications and titrate as needed GI/DVT prophylaxis Advanced directive full code Discharge Plan: Home Plan to discharge in: 48 Hours - Advance Directives Does patient have a Living Will: No Does patient have a Durable POA for Healthcare: No - Code Status/Comfort Care Code Status: Full Code Time Spent Managing Pts Care (In Minutes): 48
[2024-04-26] MEDS: NA CHLORIDE 0.9% 1,000 ML IV SCH (23:45)
[2024-04-27 00:11] VITALS: BMI 23.7
[2024-04-27] MEDS ORDERED: GLUCAGON 1 MG/VIAL IM PRN (03:13)
[2024-04-27] MEDS: LEVOTHYROXINE SOD 0.125 MG TAB PO SCH (06:00)
[2024-04-27] MEDS: INSULIN REGULAR (HUMAN) 100 UNIT/ML SQ SCH (07:30)
[2024-04-27] MEDS: TAMSULOSIN 0.4 MG SR CAP PO SCH (09:00)
[2024-04-27] MEDS: ASPIRIN EC 81 MG TAB PO SCH (09:00)
[2024-04-27] MEDS: FOLIC ACID 1 MG TABLET PO SCH (09:00)
[2024-04-27] MEDS: PANTOPRAZOLE 40MG TABLET PO SCH (09:00)
[2024-04-27] MEDS: APIXABAN 5 MG TABLET PO ONE (09:00)
--- NOTE | 2024-04-27 09:13 | RAD REPORT ---
EXAMINATION: MRI BRAIN WITHOUT CONTRAST CLINICAL INDICATION: Male, 89 years old. CVA TECHNIQUE: Multiplanar multisequence MR images of the brain were obtained without intravenous contras t. Unless otherwise specified, incidental findings do not require dedicated imaging follow-up. COMPARISON: 10/22/[address] angiogram 04/26/2024 FINDINGS: INTRACRANIAL: Midline structures are unremarkable. Diffusion-weighted images show no acute or early subacute infarction. Stable focus of encephalomalaci a within the right hemipons compatible with sequelae of remote ischemia. There is mild brain atrophy with stable burden of up to moderateT2/FLAIR hyperintensities in the weston ventricular and deep white matter regions, nonspecific but likely representing chronic microvascular ischemic changes. There is no mass effect or midline shift. No abnormal extraaxial flui d collection. VASCULATURE: Normal signal voids in the larger intracranial arteries and dural venous sinuses. SINUSES: The paranasal sinuses and mastoid air cells are predominantly clear. BONE: The marrow signal pattern is within normal limits. IMPRESSION: No significant intracranial abnormalities. Stable chronic findings as above.
[2024-04-27] MEDS ORDERED: PANTOPRAZOLE 40MG TABLET PO ONE (09:15)
[2024-04-27] MEDS ORDERED: ASPIRIN EC 81 MG TAB PO ONE (09:16)
[2024-04-27] MEDS ORDERED: TAMSULOSIN 0.4 MG SR CAP ONE (09:16)
[2024-04-27] MEDS ORDERED: APIXABAN 5 MG TABLET ONE (09:16)
[2024-04-27] MEDS ORDERED: FOLIC ACID 1 MG TABLET ONE (09:16)
--- NOTE | 2024-04-27 13:43 | ECHO ---
HEIGHT: 6 ft 1 in WEIGHT: 180 lb 0.119 oz DATE OF STUDY: 04/27/[address]: Mihai Gonzalez DO 2-DIMENSIONAL: YES M.MODE: YES DOPPLER: YES COLOR FLOW: YES TDS: NO PORTABLE: YES DEFINITY: NO BUBBLE STUDY: NO DIAGNOSIS: STROKE CARDIAC HISTORY: CATHERIZATION: YES SURGERY: YES PROSTHETIC VALVE: NO PACEMAKER: NO MEASUREMENTS (cm) DIASTOLIC (NORMALS) SYSTOLIC (NORMALS) IVSd 1.3 (0.6-1.2) LA Diam 2.5 (1.9-4.0) LVEF 60-65% LVIDd 4.4 (3.5-5.7) LVIDs 3.5 (2.0-3.5) %FS 19% LVPWd 1.4 (0.6-1.2) Ao Diam 3.3 (2.0-3.7) 2 DIMENSIONAL ASSESSMENT: RIGHT ATRIUM: NORMAL LEFT ATRIUM: NORMAL RIGHT VENTRICLE: NORMAL LEFT VENTRICLE: NORMAL TRICUSPID VALVE: MILD TRICUSPID REGURGITATION MITRAL VALVE: MILD MITRAL REGURGITATION PULMONIC VALVE: NORMAL AORTIC VALVE: CALCIFIED PERICARDIAL EFFUSION: NONE AORTIC ROOT: NORMAL LEFT VENTRICULAR WALL MOTION: NORMAL. DOPPLER/COLOR FLOW: NORMAL. COMMENTS: NORMAL LEFT VENTRICULAR SYSTOLIC FUNCTION, EJECTION FRACTION 60-65%, NORMAL WALL MOTION. TECHNOLOGIST: GLO GUERRA
--- NOTE | 2024-04-27 15:14 | RAD REPORT ---
Modified barium swallow exam with speech pathology service HISTORY: hx throat cancer Fluoroscopy Time: 6.42 minutes IMPRESSION: Please see the speech pathology service report for details. Barium contrast of multiple consistencies was provided the patient orally by the speech pathology dep artment. Fluoroscopic observation was performed during swallowing. The radiologist was not present for the examination. Laryngeal penetration not cleared, aspiration no cough with thin liquid via spoo n, pharyngeal residue vallecular, pyriform, posterior wall not clearing completely with multiple swallows, reduced tongue base retraction, prolonged mastication & delayed AP transit of bolus, poolin g in valleculae & pyriform posing high lj for silent aspiration, delayed swallow reflux 5 secs
--- NOTE | 2024-04-27 16:37 | P.PN ---
Date of Service: 04/27/24 Subjective: Seen resting in bed. He failed his swallow study he states he has had issues swallowing since his throat cancer diagnosis. He does endorse left- sided weakness. He denies fevers and chills Review of Systems 10-point ROS is otherwise unremarkable except as noted in HPI Physical Examination - Vital Signs Temperature: 97.8 F Blood Pressure: 132/80 Pulse: 68 Respirations: 18 Pulse Ox (%): 94 - Physical Exam General: Alert, In no apparent distress, Oriented x3 HEENT: Atraumatic, Normocephalic Neck: Supple, No LAD Respiratory: Clear to auscultation bilaterally, Normal air movement Cardiovascular: Regular rate/rhythm, Normal S1 S2 Capillary refill: <2 Seconds Gastrointestinal: Soft and benign, W/out hepatosplenomegaly Musculoskeletal: No clubbing, No swelling Integumentary: No rashes Neurological: Other (Alert,Awake , Non focal ), CN II to XII within normal limits Lymphatics: Other (no generalized lymphadenopathy ) - Studies Laboratory Data (last 24 hrs) 04/26/24 04/26/24 04/26/24 19:49 19:49 19:49 WBC 6.30 Hgb 12.8 L Hct 37.6 L Plt Count 262 PT 11.9 INR 1.05 APTT 32.2 Sodium 137 Potassium 4.5 BUN 27 H Creatinine 2.04 H Glucose 117 H Magnesium 2.1 Total Bilirubin 0.6 AST 26 ALT 29 Alkaline Phosphatase 80 Assessment and Plan - Plan CVA/TIA No focal weakness Numbness of left-sided body Continue aspirin and statin CTA head and neck without any acute abnormalities CT brain without any acute abnormality MRI brain without any significant abnormality Monitor neuro vital signs Monitor under telemetry Appreciate neurology recommendation Atrial fibrillation Monitor closely on telemetry Continue home medications Continue Eliquis Hypertension Antihypertensives titrated Continue home medications and titrate as needed Hyperlipidemia Continue statin Acute kidney injury Monitor renal parameters Electrolytes monitor and replace accordingly Repeat labs in the a.m. Diabetes Insulin sliding scale Accu-Chek before every meal and at bedtime CAD status post CABG Monitor closely under telemetry Patient denies any chest pain at this time Continue home medications and titrate as needed Dysphagia Failed swallow study N.p.o. for now Consult dietitian Will likely need to start Clinimix Hypothyroidism Continue levothyroxine GI/DVT prophylaxis Advanced directive full code Discharge Plan: Home Plan to discharge in: 48 Hours - Advance Directives Does patient have a Living Will: No Does patient have a Durable POA for Healthcare: No
[2024-04-27] MEDS: DULOXETINE 30 MG CAP PO SCH (21:00)
[2024-04-27] MEDS: ATORVASTATIN 40 MG TAB PO SCH (21:00)
[2024-04-27] MEDS: Mupirocin NASAL 2 APPL/1 GM TUBE NAS SCH (21:00)
[2024-04-27] MEDS: APIXABAN 5 MG TABLET PO SCH (21:00)
[2024-04-27] MEDS: ENOXAPARIN 80 MG/0.8 ML SQ ONE (22:30)
[2024-04-28 06:06] LABS: Absolute Basophils 0.1 K/uL (0-0.5); Absolute Eosinophils 0.4 K/uL (0-0.5); Absolute Lymphocytes (CBC) 1.2 K/uL (0.7-4.9); Absolute Monocytes 0.4 K/uL (0.1-1.3); Absolute Neutrophil 3.3 K/uL (1.8-8.0); Basophils % 1.7 % (0-1.3); Eosinophils % 7.8 % (0-4.4); Hematocrit 37.2 % (39.6-49.0); Hemoglobin 12.7 g/dL (13.6-17.9); Lymphocytes % 21.9 % (15.3-44.8); MCH 34.6 pg (27.0-35.0); MCHC 34.1 g/dL (32.0-36.0); MCV 101.5 fL (80-100); MPV 7.4 fL (7.6-11.3); Monocytes % 6.7 % (3.3-12.3); Neutrophils % 61.9 % (41.7-73.7); Platelets 247 thou/uL (152-406); RBC Red Blood Cell Count 3.67 M/uL (4.33-5.43); Red Cell Distribution Width 16.3 % (12.1-15.2)
[2024-04-28 06:16] LABS: Anion Gap 13.1 mEq/L (5.0-15.0); Potassium 4.1 mEq/L (3.5-5.1)
[2024-04-28] MEDS: D10W 125 ML IV PRN (07:43)
[2024-04-28] MEDS: D5 0.9 NS 1,000 ML IV SCH (07:55)
[2024-04-28] MEDS: ENOXAPARIN 80 MG/0.8 ML SQ SCH (07:56)
[2024-04-28] MEDS: Mupirocin NASAL 2 APPL/1 GM TUBE NAS SCH (09:00)
--- NOTE | 2024-04-28 13:40 | P.PN ---
Subjective Date of Service: 04/28/24 Chief Complaint: Generalised weakness No change in patient's condition apparently he is very weak to ambulate he is at previous strokes recurrent falls failed barium swallow test denies any fever chills cough congestion Review of Systems Unremarkable General: Weakness Physical Examination - Vital Signs Temperature: 97.4 F Blood Pressure: 115/58 Pulse: 64 Respirations: 15 Pulse Ox (%): 97 - Physical Exam General: Alert, Oriented x3 Cardiovascular: No edema, Regular rate/rhythm, Normal S1 S2 Gastrointestinal: Normal bowel sounds, Soft and benign Musculoskeletal: No clubbing, No swelling Assessment And Plan - Current Problems (Diagnosis) (1) Weakness Current Visit: Yes Status: Acute Plan: Patient is 89 years of age with a history of prior stroke admitted with fall and weakness patient is renal function is abnormal mild macrocytic anemia continue to monitor n.p.o. he also became hypoglycemic we will continue to monitor check serum cortisol level in the morning including thyroid function test B12 levels so far vital signs are satisfactory oxygenation satisfactory patient has had problems swallowing since his diagnosis of tongue cancer He does have a history of metabolic syndrome including hypothyroidism A-fib coronary artery disease he of stroke with left-sided hemiparesis MRI of the brain is negative for acute stroke Patient is echocardiogram is also normal will have physical therapy work with him correct his hypoglycemia chest check a serum cortisol level in the morning history of A-fib will place patient on monitor
[2024-04-28 14:27] LABS: Thyroid Stimulating Hormone 0.38 uIU/mL (0.358-3.740)
--- NOTE | 2024-04-28 14:44 | EKG ---
Test Date: 2024-04-26 Test Time: 19:44:28 Regional Administrative Assistant: CHRISTIANO MEASUREMENT RESULTS: Intervals: Rate: 67 PA: 214 QRSD: 152 QT: 488 QTc: 515 [place]: P: 57 PA: 214 QRS: -72 T: 7 INTERPRETIVE STATEMENTS: Sinus rhythm with 1st degree AV block with premature atrial complexes with aberrant conduction Left axis deviation Right bundle branch block Septal infarct, age undetermined Inferior infarct, age undetermined Abnormal ECG Compared to ECG 01/09/2022 09:56:00 Atrial premature complex(es) now present First degree AV block now present Aberrant conduction of supraventricular beat(s) now present Electronically Signed On 04-28-24 14:41:23 CDT by Tye Verma
[2024-04-28] MEDS: THIAMINE 200 MG/2 ML INJ IVP SCH (15:08)
[2024-04-28] MEDS ORDERED: ENOXAPARIN 80 MG/0.8 ML SQ SCH (21:00)
[2024-04-29 06:11] LABS: Hematocrit 34.2 % (39.6-49.0); Hemoglobin 11.7 g/dL (13.6-17.9); MCH 34.8 pg (27.0-35.0); MCHC 34.4 g/dL (32.0-36.0); MCV 101.3 fL (80-100); MPV 7.6 fL (7.6-11.3); Platelets 233 thou/uL (152-406); RBC Red Blood Cell Count 3.38 M/uL (4.33-5.43); Red Cell Distribution Width 16.4 % (12.1-15.2)
[2024-04-29 07:20] LABS: Anion Gap 8.7 mEq/L (5.0-15.0); Potassium 3.7 mEq/L (3.5-5.1)
[2024-04-29 10:02] LABS: PT Prothrombin Time 12.8 SECONDS (10-13.0); Protime INR 1.13
--- NOTE | 2024-04-29 11:19 | P.PN ---
Subjective Date of Service: 04/29/24 Chief Complaint: Dysphagia No change in patient's condition he still feels very weak has difficulty swallowing progressively worse has had some radiation treatment for his oral cancer Review of Systems 10-point ROS is otherwise unremarkable General: Weakness Physical Examination - Vital Signs Temperature: 97.7 F Blood Pressure: 121/70 Pulse: 59 Respirations: 15 Pulse Ox (%): 94 - Physical Exam General: Alert, Oriented x3 Respiratory: Clear to auscultation bilaterally Cardiovascular: No edema, Regular rate/rhythm, Normal S1 S2 Assessment And Plan - Current Problems (Diagnosis) (1) Weakness Current Visit: Yes Status: Acute Plan: Patient has profound weakness eating and drinking (2) Dysphagia Current Visit: Yes Status: Acute Plan: Patient failed his barium swallow has difficulty swallowing prior treatment for his oral cancer and his strokes to insert a Dobbhoff tube consult Dr. Vuong for the PEG tube labs reviewed patient's Eliquis is on hold resume after his PEG tube which has been scheduled for Wednesday Qualifiers: Dysphagia type: oropharyngeal phase Qualified Code(s): R13.12 - Dysphagia, oropharyngeal phase
--- NOTE | 2024-04-30 06:36 | P.PN ---
Subjective Date of Service: 04/30/24 Chief Complaint: Dysphagia Review of Systems 10-point ROS is otherwise unremarkable Physical Examination - Vital Signs Temperature: 97.7 F Blood Pressure: 108/61 Pulse: 55 Respirations: 16 Pulse Ox (%): 96 - Physical Exam General: Alert, In no apparent distress HEENT: Atraumatic, Normocephalic Neck: Supple, No Thyromegaly Respiratory: Clear to auscultation bilaterally, Normal air movement Cardiovascular: Regular rate/rhythm, Normal S1 S2 Capillary refill: <2 Seconds Gastrointestinal: Soft and benign Musculoskeletal: No clubbing Integumentary: No rashes Neurological: Other (Alert, Awake , ) Lymphatics: No axilla or inguinal lymphadenopathy Assessment And Plan - Plan CVA/TIA No focal weakness Numbness of left-sided body Started on aspirin and statin CT CTA findings noted MRI brain ordered Monitor neuro vital signs Monitor under telemetry Neurology consult Atrial fibrillation Monitor closely on telemetry Continue home medications Hypertension Antihypertensives titrated Continue home medications and titrate as needed Hyperlipidemia Continue statin Acute kidney injury Monitor renal parameters Electrolytes monitor and replace accordingly Diabetes Insulin sliding scale Accu-Chek before every meal and at bedtime CAD status post CABG Monitor closely under telemetry Patient denies any chest pain at this time Continue home medications and titrate as needed GI/DVT prophylaxis Advanced directive full code 04/30/2024 Failed swallow evaluation Awaiting PEG tube placement Possible on Wednesday Appreciate help from Surgery Discharge Plan: Home Plan to discharge in: 48 Hours - Code Status/Comfort Care Code Status: Full Code Time Spent Managing PTS Care (In Minutes): 54
[2024-04-30] MEDS: LIDOCAINE 4% PATCH TOP SCH (12:02)
[2024-04-30] MEDS: DICLOFENAC SODIUM 1% GEL TOP PRN (14:57)
[2024-05-01 06:44] LABS: Absolute Basophils 0.1 K/uL (0-0.5); Absolute Eosinophils 0.5 K/uL (0-0.5); Absolute Monocytes 0.6 K/uL (0.1-1.3); Basophils % 1.3 % (0-1.3); Eosinophils % 9.9 % (0-4.4); Hematocrit 36.8 % (39.6-49.0); Hemoglobin 12.6 g/dL (13.6-17.9); Lymphocytes % 18.6 % (15.3-44.8); MCH 34.6 pg (27.0-35.0); MCHC 34.3 g/dL (32.0-36.0); MCV 100.9 fL (80-100); MPV 7.9 fL (7.6-11.3); Monocytes % 10.9 % (3.3-12.3); Neutrophils % 59.3 % (41.7-73.7); Nucleated Red Blood Cells % 0.1 % (0-0); Platelets 208 thou/uL (152-406); RBC Red Blood Cell Count 3.65 M/uL (4.33-5.43); Red Cell Distribution Width 16.7 % (12.1-15.2)
[2024-05-01 06:54] LABS: Anion Gap 8.6 mEq/L (5.0-15.0); Potassium 3.6 mEq/L (3.5-5.1)
[2024-05-01] MEDS: CYANOCOBALAMIN 1000MCG/ML INJ IM ONE (12:01)
[2024-05-01] MEDS: NA CHLORIDE 0.9% 1,000 ML ONE (13:00)
[2024-05-01] MEDS ORDERED: LIDOCAINE 1% MPF 5 ML VIAL ONE (13:09)
[2024-05-01] MEDS ORDERED: propofoL 200 MG/20 ML VIAL IV ONE (13:09)
[2024-05-01] MEDS: dexAMETHasone 10 MG/ML VIAL ONE (14:07)
[2024-05-01 14:36] VITALS: O2SAT 100
[2024-05-02] MEDS ORDERED: GLUCERNA 1.5 CAL 1,000 ML BOT RTH SCH (13:00)
--- NOTE | 2024-05-02 15:23 | CON ---
Date of Consultation: 04/29/2024 Brief Hpi: The patient is an 89-year-old male with a past medical history of hypertension, diabetes, hypothyroidism, hyperlipidemia, atrial fibrillation, coronary artery disease status post CABG, diver ticulitis, ischemic heart disease, CVA, history of cancer, who presented to the ER with weakness of l eft side of his body, progressively getting worse over the several days prior to his admission on . He had some slurring of speech, mild aphasia, left-sided facial droop. He had a swallowing exam , which ultimately showed high risk for aspiration and alternate method of nutritional supplementatio n was recommended other than oral route, as he was unable to protect his airway per speech pathologis t's recommendations. I am consulted for PEG tube placement. Allergies: NO KNOWN DRUG ALLERGIES. Home Medications: Included Cymbalta, Lyrica, Janumet, Flomax, Valtrex, Synthroid, Cordarone, Eliquis , aspirin, Lipitor, folic acid, Glucerna, Novolin, Dulera, Protonix. Past Medical History: Significant for diabetes, diverticulitis, hyperlipidemia, neuropathy, shingles , ischemic heart disease, cancer of the tongue, hypothyroidism. Past Surgical History: Includes a 3-vessel CABG, cholecystectomy, C6-C7 neck surgery, right inguinal hernia repair, left-sided inguinal hernia repair, nodule left side of the neck removed. Social History: He has a positive tobacco use history. Denies alcohol, recreational drug use. Review of Systems: Ten-point review of systems other than HPI denies. Physical Examination: General: At the time of my examination, he is awake, alert, and oriented. Psychiatric: Appropriate, conversive. HEENT: He is normocephalic. His sclerae are anicteric. His mucous membranes are moist. His oropha rynx is clear. Neck: Supple without JVD. Chest: Normal expansion and excursion. Cardiovascular: Regular rate and rhythm. Pulmonary: Clear to auscultation bilaterally. Abdomen: Soft. There is a previous PEG site evident on his epigastrium. Extremities: No clubbing, cyanosis, or edema. Skin: Warm and dry. Laboratory Data: He had a laboratory exam, which revealed a white blood cell count of 5.2, hemoglobi n is 11.7, hematocrit 34.2, platelet count was 233. PT 12.8, INR 1.13. Sodium 141, potassium 3.7, c hloride 111, carbon dioxide 25, BUN 16, creatinine was 1.1. Assessment And Plan: This is an 89-year-old male who has high risk for aspiration. Recommendations for alternative nutrition have been made from speech pathology based on barium swallow study, which s howed high risk for aspiration. 1. IV fluid hydration. 2. Antibiotic coverage. 3. I explained the risks, benefits, and alternatives of percutaneous endoscopic gastrostomy tube with esophagogastroduodenoscopy, possible biopsy, and PEG tube placement including but not limited to ble eding, infection, damage to surrounding tissues, need for further operative procedures, intestine per foration, other unforeseen complications in the perioperative period including aspiration and other c onditions such as heart attacks, blood clots, strokes. The patient displayed understanding of above- stated plan and agreed to proceed as indicated. Thank you for this interesting consult. LUKE/SARAH Voice ID: [id number] Report ID: [id number]
[2024-05-02] MEDS: APIXABAN 5 MG TABLET FT SCH (22:07)
[2024-05-02] MEDS: ATORVASTATIN 40 MG TAB FT SCH (22:07)
[2024-05-03] MEDS: LEVOTHYROXINE SOD 0.125 MG TAB FT SCH (05:44)
[2024-05-03] MEDS: ASPIRIN 81 MG CHEWABLE TABLET FT SCH (09:00)
[2024-05-03] MEDS: TAMSULOSIN 0.4 MG SR CAP FT SCH (09:00)
[2024-05-03] MEDS: CYANOCOBALAMIN 1000MCG/ML INJ IM ONE (10:15)
[2024-05-03] MEDS: FOLIC ACID 1 MG TABLET FT SCH (10:16)
[2024-05-03] MEDS: INSULIN REGULAR (HUMAN) 100 UNIT/ML SQ SCH (18:00)
[2024-05-03 21:24] VITALS: BP 119/64; TEMP 97.5
[2024-05-04] MEDS ORDERED: Pantoprazole (granules) 40 MG/BLIST PACKET FT SCH (09:00)
== END 2024-05-04 01:55 | DRG 948 ==
LOC: ER 19:36 → ERHOLD 23:20 → 2ND 04-27 12:44
PROVIDERS: ADMIT Family Medicine; ATTEND Hospitalist
PROC: 02HV33Z Insertion of Infusion Device into Superior Vena Cava, Percutaneous Approach (ICD-10-PCS; 2024-04-27)
PROC: 0DB78ZX Excision of Stomach, Pylorus, Via Natural or Artificial Opening Endoscopic, Diagnostic (ICD-10-PCS; 2024-05-01)
PROC: 0DH63UZ Insertion of Feeding Device into Stomach, Percutaneous Approach (ICD-10-PCS; 2024-05-01)
PROC: 0DB68ZX Excision of Stomach, Via Natural or Artificial Opening Endoscopic, Diagnostic (ICD-10-PCS; principal; 2024-05-01 15:00)
DX: R53.1 Weakness (principal); N17.9 Acute kidney failure, unspecified; R47.01 Aphasia; K29.30 Chronic superficial gastritis without bleeding; E03.9 Hypothyroidism, unspecified; I10 Essential (primary) hypertension; D53.9 Nutritional anemia, unspecified; I48.91 Unspecified atrial fibrillation; E78.5 Hyperlipidemia, unspecified; C14.0 Malignant neoplasm of pharynx, unspecified; E11.649 Type 2 diabetes mellitus with hypoglycemia without coma; E11.40 Type 2 diabetes mellitus with diabetic neuropathy, unspecified; S50.312A Abrasion of left elbow, initial encounter; I25.10 Atherosclerotic heart disease of native coronary artery without angina pectoris; R47.81 Slurred speech; R13.12 Dysphagia, oropharyngeal phase; R29.703 NIHSS score 3; R29.6 Repeated falls; Z60.2 Problems related to living alone; Z79.4 Long term (current) use of insulin; Z95.1 Presence of aortocoronary bypass graft; Z91.81 History of falling; Z79.01 Long term (current) use of anticoagulants; Z79.82 Long term (current) use of aspirin; Z86.73 Personal history of transient ischemic attack (TIA), and cerebral infarction without residual deficits; Z79.890 Hormone replacement therapy; Z79.899 Other long term (current) drug therapy; Z87.891 Personal history of nicotine dependence; W19.XXXA Unspecified fall, initial encounter; Y92.019 Unspecified place in single-family (private) house as the place of occurrence of the external cause; Y93.9 Activity, unspecified; Y99.9 Unspecified external cause status
CPT/HCPCS: 36415; 70450; 70496; 70498; 70551; 71045; 74230; 80048; 80076; 82533; 82565; 82607; 82947; 83735; 84443; 84484; 85025; 85027; 85610; 85730; 88305; 88312; 92523; 92526; 92611; 93005; 93306; 96360; 97116; 97161; 97530; 99285; J1100; J1815; J2003; J2704; J3411; J3420; J7030; J7042; Q9967

== ENCOUNTER 2024-05-03 18:00 | Inpatient (IN) | payer OTHER ==
--- OUTSIDE RECORDS SUMMARY | 2024-05-04 01:32 | XMS REPORT | Clinical Summary ---
Author Name Unknown Organization [facility] [place] Address [address] [place] [address] Care Team Providers Care Continuous Churn Buttermaker Name Role Phone Arjun Soto MD, Eduardo M Primary Care Provider [phone] Anton Dye MD Unavailable UnavailAnton Carey MD Unavailable UnavailEmma Simon MD Unavailable Romina Giordano MD Unavailable Pipo Dominguez MD Unavailable Sang Soto MD, Sang King Unavailable [email or web address] Tevin Randykeonanne DOPEMAN Unavailable Haley Cisneros Unavailable [phone] Arjun Soto MD, Eduardo M Unavailable [phone] Allergies No known active allergies Medications * [...] on file Legal Sex Male 4:16 PM RN DIGESTIVE Gender Identity Not on file Sexual Orientation Not on file Obstetrics History Plan of Treatment Health Maintenance Due Date Last Done Comments Pneumococcal Vaccine: 50+ Years (2 of 2 - PCV) 014 11/25/2012 COVID-19 Vaccine ( season) 2023 Influenza Vaccine (#1) 2023 03/03/2014 Insurance MEDICARE PART A AND B [employer] MEDICARE PART A AND B MEDICARE PART A AND B [employer] Care Teams Continuous Churn Buttermaker Relationship Specialty Start Date End Date Newton Díaz Jr., MD [address] [place] [id number] [email or web address] PCP - General 04/17/15 Anton Dye MD [address] [place] [id number] PCP - External Referring 08/17/12 Anton yDe MD [address] [place] [id number] PCP - External Follow Up A 08/17/12 Emma Norman MD [address] [place] [address] [email or web address] Physician 04/24/15 Romina Giordano MD [address] [place] [id number] [email or web address] Physician 04/24/15 Pipo Dominguez MD [address] [place] [id number] [email or web address] Physician 04/24/15 Sang Domínguez Jr., MD [email or web address] Physician 04/24/15 Hong Abarca APRN [address] [place] [id number] [email or web address] Nurse Practitioner 04/24/15 Haley Cisneros AuD [address] [facility] [address] [place] [address] Senior Mechanical Development Engineer 04/24/15 Newton Díaz Jr., MD [address] [place] [address] [email or web address] Physician 04/24/15
[2024-05-04 01:49] VITALS: BMI 23.1
[2024-05-04] MEDS ORDERED: GLUCERNA 1.5 CAL 1,000 ML BOT FT SCH (03:00)
[2024-05-04] MEDS: INSULIN REGULAR (HUMAN) 100 UNIT/ML SQ SCH ×2 (05:30→21:00)
[2024-05-04 05:58] LABS: Specific Gravity 1.015 (1.005-1.030); Sqamous Epithelial <5 /HPF (None Seen); Urine Bacteria None Seen /HPF (<20); Urine Bilirubin NEGATIVE (Negative); Urine Blood Negative (Negative); Urine Clarity Clear (Clear); Urine Color Yellow (Yellow); Urine Culture Reflex Order NOT NEEDED; Urine Glucose NEGATIVE (Negative); Urine Ketones NEGATIVE (Negative); Urine Micro Reflex YN NO BILL MICROSCOPIC; Urine Mucus Slight /HPF (None Seen); Urine Nitrite NEGATIVE (Negative); Urine Protein NEGATIVE (Negative); Urine RBC <5 /HPF (None Seen); Urine Urobilinogen 2+ (Normal); Urine WBC <5 /HPF (<5)
[2024-05-04] MEDS: Pantoprazole (granules) 40 MG/BLIST PACKET FT SCH (06:30)
[2024-05-04] MEDS ORDERED: LEVOTHYROXINE SOD 0.112 MG TAB FT SCH ×2 (06:30)
[2024-05-04 07:25] LABS: Absolute Eosinophils 0.1 K/uL (0-0.5); Absolute Lymphocytes (CBC) 0.8 K/uL (0.7-4.9); Absolute Monocytes 0.6 K/uL (0.1-1.3); Absolute Neutrophil 5.1 K/uL (1.8-8.0); Albumin 2.3 g/dL (3.4-5.0); Anion Gap 9.5 mEq/L (5.0-15.0); Basophils % 0.6 % (0-1.3); Hematocrit 35.7 % (39.6-49.0); Hemoglobin 12.3 g/dL (13.6-17.9); MCH 34.5 pg (27.0-35.0); MCHC 34.5 g/dL (32.0-36.0); MPV 8.6 fL (7.6-11.3); Magnesium 1.6 mg/dL (1.6-2.4); Monocytes % 8.8 % (3.3-12.3); Neutrophils % 76.6 % (41.7-73.7); Nucleated Red Blood Cells % 0.1 % (0-0); Platelets 181 thou/uL (152-406); Potassium 3.5 mEq/L (3.5-5.1); Prealbumin 13.3 mg/dL (20-40); RBC Red Blood Cell Count 3.57 M/uL (4.33-5.43); Red Cell Distribution Width 16.5 % (12.1-15.2)
[2024-05-04] MEDS: LEVOTHYROXINE SOD 0.125 MG TAB FT SCH (07:59)
[2024-05-04] MEDS: TAMSULOSIN 0.4 MG SR CAP FT SCH (08:00)
[2024-05-04] MEDS ORDERED: MECLIZINE HCL 12.5 MG TAB FT SCH (09:00)
[2024-05-04] MEDS: APIXABAN 5 MG TABLET FT SCH (10:04)
[2024-05-04] MEDS: AMIODARONE HCL 200 MG TAB FT SCH (10:04)
[2024-05-04] MEDS: ASPIRIN 81 MG CHEWABLE TABLET FT SCH (10:04)
[2024-05-04] MEDS: FAMOTIDINE 20 MG TAB FT SCH (10:04)
[2024-05-04] MEDS: METFORMIN HCL 500 MG TAB FT SCH (10:05)
[2024-05-04] MEDS: GABAPENTIN 300 MG CAP FT SCH (10:05)
[2024-05-04] MEDS: MECLIZINE HCL 12.5 MG TAB FT SCH (10:05)
[2024-05-04] MEDS: LIDOCAINE 4% PATCH TOP SCH (10:05)
[2024-05-04] MEDS: GLUCERNA 1.5 CAL 1,000 ML BOT FT SCH (17:00)
[2024-05-04] MEDS: VALACYCLOVIR 500 MG TAB FT SCH (20:28)
[2024-05-04] MEDS: ATORVASTATIN 40 MG TAB FT SCH (20:28)
[2024-05-04] MEDS: MELATONIN 5 MG TABLET PO SCH (20:29)
--- NOTE | 2024-05-05 02:11 | HP ---
Date of Admission: 05/04/2024 Time Of Service: 1:10 p.m. Chief Complaint: "I am weak and need to get stronger." History Of Present Illness: Mr. Peña is an 89-year-old patient with dyslipidemia; bmf-[id number]-yb pendent diabetes mellitus; diabetic neuropathy; diverticulitis; shingles; ischemic heart disease; ton wallace cancers, stage IV; hypothyroidism, who presented to the emergency room with left-sided weakness, slurred speech, mild aphasia. Workup showed no acute stroke; however, there was a prior right pontin e remote infarct and patient likely was having sequelae of his chronic stroke. In addition, he has a trial fibrillation, hypertension, dyslipidemia, acute renal insufficiency, chronic diabetes mellitus, coronary artery disease. He was treated with dual antiplatelet therapy, had telemetry monitoring an d current medications. Addressed his renal issues, sugar monitoring, and insulin sliding scale and was seen by the GI service and has physical and occupational therapy. The patient was consulted for a PEG tube as a result of his issues of swallowing. His hospital course was complicated by decreased mobility, dysphagia, and elevated blood pressure with low hemoglobin, hematocrit, and renal insuffic iency. Prior to the patient's recent worsening stroke, he recovered well to be independent with a ro lling walker, driving, taking care of his cooking, cleaning, all activities of daily living. Current ly, the patient requires minimal assistance for transfers, contact guard enrichment assistant to ambulate with a rolling walker, and is currently n.p.o. due to dysphagia. He is now referred to inpatient rehabilit ation unit to help him return to his prior level of functioning, to help him reducing his risk of asp iration and manage tube feedings. If he is sent in to detention home, he is likely to not thri ve and require more acute care before being ready for discharge. Therefore, rehabilitation admission is necessary to help him reduce the risk of more worsening of functioning, new stroke, or falling an d injury. Past Medical History: Noninsulin dependent diabetes mellitus; diverticulitis; dyslipidemia; peripher al neuropathy; diabetic neuropathy; shingles; ischemic coronary artery disease; tongue cancer, stage IV; hypothyroidism. Past Surgical History: Robotic cardiac bypass surgery, cholecystectomy, C6-C7 anterior diskectomy, r ight-sided hernia repair, and a nodule removed from the left side of the neck. Imaging: CT scan of the brain on 04/26/2024 shows no evidence of acute intracranial abnormality. A stable right pontine infarct seen. Chest x-ray on 04/26/2024, no acute intrathoracic abnormalities. Medications: Medications have been reviewed and they include DVT prophylaxis. He is managed for sle ep with melatonin and trazodone. Tylenol on board for pain. Reflux addressed with Protonix. Diabet es, he is on insulin sliding scale. His dyslipidemia is addressed as well and hypothyroidism medicat ions have been addressed as well. Family History: Noncontributory. Social History: No alcohol, tobacco, or IV drug use. The patient lives with family in a single [facility] home. Current Level Of Functioning: Currently, he is eating with setup assistance and he has careful evalu ation and management by Speech Therapy. Eating is at setup assistance; grooming, setup assistance; b athing, moderate assistance; upper and lower body dressing, supervision; lower body dressing, moderat e assistance; toileting, moderate assistance. Transfers to the toilet and to commode, moderate ella tance. Ambulation 250 feet with minimum assistance required. Physical Examination: Vital Signs: Blood pressure 129/97, respiratory rate 14, pulse 65, temperature 98.3. His height is 73 inches, weight 180 pounds, BMI 23.7. General: Mr. Peña is resting comfortably in bed. HEENT: He is normocephalic, atraumatic. Sclerae anicteric. Oropharynx pink and moist. Neck: Supple. Chest: Clear. Heart: Regular. No significant edema, cyanosis, or clubbing noted. Neuro: He has noted the left-sided weakness, slurred speech, and difficulty with expression, and aph agia. Laboratory Studies: White blood cell count , hemoglobin 12.6, hematocrit 36.8, platelets 2 08. Potassium 3.6, glucose 126, BUN 6, creatinine 1.04, calcium 8.3, sodium 142. Rehab And Medical Assessment And Plan: Mr. Peña is an 89-year-old patient in the rehabilitation unit with impairment category 01 stroke. His impairment group code is 01.4. No significant paresis. Etiologic diagnosis is sequelae of stroke. His comorbid conditions do include decreased mobility, decreased physical functioning, jsp-mkbjayy-fibfedyie diabetes mellitus, diverticulitis, dyslipidemia , diabetic peripheral neuropathy, shingles, ischemic cardiac disease, tongue cancer, hypothyroidism. Plan: He will have physical, occupational, and speech therapy 3.5 hours, 5 of 7 days to improve his ability to swallow safely, mobilize, transfer, and take care of all activities of daily living. His comorbid conditions will be addressed by continuing his list of medications. Adjustments will be mad e after blood pressures have been monitored for 2-3 days. Blood sugars addressed with a.c. and at be dtime and sliding scale will be appropriate. His dyslipidemia addressed with statin continuing. DVT prophylaxis on board with Eliquis 2.5 mg twice daily, and hypothyroidism addressed by continuing his thyroid medications. Comorbidities That Are Impacting Rehabilitation: The ability to communicate is slowed down by the ap hasia due to his stroke. Speech Therapy will work carefully with him. In addition, the risk of aspi ration is high and there is some upper airway congestion and coughing. The patient will have Tessalo n Perles and nebulizer treatment to help clear the upper airway congestion. He is at risk of deep ve in thrombosis. Again, he is on Eliquis. Also, at risk for myocardial infarction. Aspirin 81 mg jose ly as well. Rehab Specific Plan: Mr. Peña will have again physical, occupational, and speech therapy 3.5 sandra rs, 5 of 7 days to improve his ability to transfer from bed to chair, to toilet, to wheelchair; to mo bilize with a wheelchair and rolling walker; to be able to go up and down several steps; and to perfo rm activities of daily living safely. Mr. Peña has a good understanding of the process of admission to the inpatient rehabilitation [facility], how he will benefit from physical, occupational, and speech therapy. He will have 24 hours a day, 7 days a week skilled rehabilitation and nursing, daily physician evaluation and management, and [facility] ial services evaluation and management for discharge planning, home equipment, and continuing therapy and for physician followup. If need be, additional help from the hospitalist service will be sought . Barriers To Discharge: Currently with difficulty with expression and comprehension may make it diffi cult for the patient be able to survive well on his own without supervision. The goal will be to get to the point that he is able to communicate effectively and to be able to safely negotiate household distances and be safe and reduce his risk of falling. He may require an extended stay to achieve th at or may have to go to detention depending on how he is doing. Length Of Stay: About 14 days. Disposition: Back to home with family and continue therapy via Home Health. Prognosis: Good prognosis. Code Status: Full code. Rehab Specific Goals: 1. Become independent with upper and lower body dressing, donning and doffing footwear. 2. Independently transfer from bed to chair, to toilet, to shower. 3. Independently perform all activities of daily living. 4. Independent perform all cognitive functioning. 5. Independently perform eating, swallowing safely to reduce his risk of aspiration pneumonia. The above goals were reviewed with Mr. Peña and he is in agreement. By signing this document, I acknowledge, I personally performed a full physical examination on Mr. Star garibay. No later than 24 hours after his admission to the inpatient rehabilitation unit and determin ed that he is able to tolerate the above course of treatment at an intensive level for reasonable per iod of time. A detailed individualized plan of care for him will be completed by hospital day 4 base d on the preadmission screen, history and physical, and therapy evaluations. CÉSAR/SARAH Voice ID: [id number]
--- NOTE | 2024-05-05 14:01 | P.RH.PN ---
Estimated Length of Stay: 13 Expected Discharge Date: 05/13/24 Discharge Disposition Plan: Home Family Support: Yes Long-Term Goal: Mobility, Transfers, Self Care Vital Signs: Last Vital Signs Temp 98.3 F 05/05/24 07:26 Pulse 65 05/05/24 07:26 Resp 18 05/05/24 07:26 BP 139/63 05/05/24 07:26 Pulse Ox 94 05/05/24 07:26 Laboratory: Laboratory Last Values WBC 6.70 thou/uL (4.3-10.9) 05/04/24 06:31 RBC 3.57 M/uL (4.33-5.43) L 05/04/24 06:31 Hgb 12.3 g/dL (13.6-17.9) L 05/04/24 06:31 Hct 35.7 % (39.6-49.0) L 05/04/24 06:31 MCV 100.0 fL (80-100) 05/04/24 06:31 MCH 34.5 pg (27.0-35.0) 05/04/24 06:31 MCHC 34.5 g/dL (32.0-36.0) 05/04/24 06:31 RDW 16.5 % (12.1-15.2) H 05/04/24 06:31 Plt Count 181 thou/uL (152-406) 05/04/24 06:31 MPV 8.6 fL (7.6-11.3) 05/04/24 06:31 Neutrophils % 76.6 % (41.7-73.7) H 05/04/24 06:31 Lymphocytes % 12.0 % (15.3-44.8) L 05/04/24 06:31 Monocytes % 8.8 % (3.3-12.3) 05/04/24 06:31 Eosinophils % 2.0 % (0-4.4) 05/04/24 06:31 Basophils % 0.6 % (0-1.3) 05/04/24 06:31 Absolute Neutrophils 5.1 K/uL (1.8-8.0) 05/04/24 06:31 Absolute Lymphocytes 0.8 K/uL (0.7-4.9) 05/04/24 06:31 Absolute Monocytes 0.6 K/uL (0.1-1.3) 05/04/24 06:31 Absolute Eosinophils 0.1 K/uL (0-0.5) 05/04/24 06:31 Absolute Basophils 0.0 K/uL (0-0.5) 05/04/24 06:31 Sodium 138 mEq/L (136-145) 05/04/24 06:31 Potassium 3.5 mEq/L (3.5-5.1) 05/04/24 06:31 Chloride 106 mEq/L (98-107) 05/04/24 06:31 Carbon Dioxide 26 mEq/L (21-32) 05/04/24 06:31 Anion Gap 9.5 mEq/L (5.0-15.0) 05/04/24 06:31 BUN 15 mg/dL (7-18) 05/04/24 06:31 Creatinine 0.98 mg/dL (0.70-1.30) 05/04/24 06:31 Est GFR (CKD-EPI) 74 ml/min (=/>90) L 05/04/24 06:31 Glucose 136 mg/dL (74-106) H 05/04/24 06:31 POC Glucose 148 mg/dL (65-120) H 05/05/24 11:34 Calcium 7.9 mg/dL (8.5-10.1) L 05/04/24 06:31 Magnesium 1.6 mg/dL (1.6-2.4) 05/04/24 06:31 Albumin 2.3 g/dL (3.4-5.0) L 05/04/24 06:31 Prealbumin 13.3 mg/dL (20-40) L 05/04/24 06:31 Urine Color Yellow (Yellow) 05/04/24 04:40 Urine Clarity Clear (Clear) 05/04/24 04:40 Urine pH 6.0 (5.0-7.0) 05/04/24 04:40 Ur Specific [place] 1.015 (1.005-1.030) 05/04/24 04:40 Glucose (UA)(Auto) Negative (Negative) 05/04/24 04:40 Urine Ketones Negative (Negative) 05/04/24 04:40 Urine Blood Negative (Negative) 05/04/24 04:40 Urine Nitrite Negative (Negative) 05/04/24 04:40 Urine Bilirubin Negative (Negative) 05/04/24 04:40 Urine Urobilinogen 2+ (Normal) H 05/04/24 04:40 Ur Leukocyte Esterase Negative Mylene/uL (Negative) 05/04/24 04:40 Urine RBC <5 /HPF (None Seen) 05/04/24 04:40 Urine WBC <5 /HPF (<5) 05/04/24 04:40 Ur Squamous Epith Cells <5 /HPF (None Seen) 05/04/24 04:40 Urine Bacteria None seen /HPF (<20) 05/04/24 04:40 Urine Mucus Slight /HPF (None Seen) 05/04/24 04:40 Urine Culture Reflexed Not needed 05/04/24 04:40 Urine Total Protein Negative (Negative) 05/04/24 04:40 Weight: 175 lb Physician Update: He has a cough and with repeat a chest x-ray. Mildly low magnesium. Will add magnesium. He has mild left shoulder pain, a pain patch was placed. He is on tube feedings. 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 Bed mobility mod assist, RW 350' CGA and fatigued. Did oral hygiene with supervision, min assist toileting and most other ADLs are CGA. Summary: Patient's care plan and halfway goals have been reviewed and revised as necessary. Please see the Rehabilitation Signature page for all necessary sig natures.
--- NOTE | 2024-05-05 15:30 | RAD REPORT ---
EXAMINATION: ONE VIEW CHEST XR CLINICAL INDICATION: Rule out pneumonia TECHNIQUE: Frontal chest projection is submitted. Examination is limited by patient positioning and t echnique. COMPARISON: 04/26/2024 FINDINGS: Subtle opacity is present in the left lung base which may represent developing infiltrate/pneumonia. This may be related to aspiration. Heart is mildly prominent changes of a prior CABG. Cervical spine hardware plate. IMPRESSION: Mild left base lung opacity suggests developing pneumonia/aspiration.
[2024-05-06] MEDS: PIPER TAZO 3.375 GM in NA CHLORIDE 0.9% 100 ML IV ONE (16:45)
[2024-05-06] MEDS: PIPER TAZO 3.375 GM in NA CHLORIDE 0.9% 100 ML IV SCH (17:00)
--- NOTE | 2024-05-06 20:43 | PN ---
Date of Progress Note: 05/06/2024 Time Of Service: 4 p.m. Subjective: Mr. Peña is lying in bed, shallow breathing. Head of bed is up. He has had a chest x-ray showing possibility of pneumonia. The patient did make an attempt to use incentive spirometry , but is hardly able to move it perhaps around 100 to 200 cc. He is encouraged to continue using vincent t. There will be Zosyn starting 3.375 mg every 8 hours for likely pneumonia seen on chest x-ray. We will give Tessalon Perles and Mucinex to help loosen any upper airway congestion and minimize his ri sk of worsening pneumonia. Objective: He does report mild cough, but no fevers, chills. Mild myalgias, arthralgias. No rash. No headache. No psychiatric complaints. Physical Examination: Vital Signs: Blood pressure 132/62, pulse 64, respiratory rate 17, temperature 98.4, oxygen saturati on 93%. General: Mr. Peña is lying in bed. He appears in no acute distress, shallow breathing, decrease d breath sounds. Abdomen: Soft. Extremities: No significant edema, cyanosis, or clubbing. Neuro: He does not have focal neurologic deficits. He has diffuse weakness of upper and lower extre mities with significant debility. Laboratory Studies: White blood cell count 7.7, hemoglobin 12.3, platelets are 181. His blood sugar s ranged from 98 to 147, and his urinalysis shows 2+ urobilinogen, but is otherwise unremarkable and the chest x-ray as noted identified mild left lung base opacity suggestive of developing pneumonia ve rsus likely an aspiration pneumonia. Medications: He is on Cordarone 200 mg twice daily, Eliquis 5 mg twice daily, aspirin 81 mg daily, L ipitor 40 mg at bedtime, Glucerna 1.5 Nando which he is receiving per PEG tube. He has gabapentin 300 mg 3 times daily, Pepcid 20 mg daily, Tylenol 500 mg every 6 hours as needed, Synthroid 0.125 mg storm y, Aspercreme 4% patch which is the lidocaine patch apply topically daily, Antivert 25 mg twice daily , melatonin 5 mg at bedtime. He does have the antibiotics going and piperacillin and tazobactam and Valtrex as well. Progress Made With Physical And Occupational Therapy: Today with physical therapy, maximal assistanc e for hgupyj-ea-dub transfers twice and did attempt for aee-rq-[id number] with a rolling walker. Unable t o complete that requiring maximum assistance. Regarding additional therapy, supine to sit at edge of bed required moderate assistance. He was able to maintain sitting for about 3 minutes before he req uested to lay back down due to fatigue. The therapist did note he appeared to have somewhat of a wolfgang nge in his status and chest x-ray was ordered as noted above. With speech, he is noted of course to be n.p.o., is fed by PEG tube when the speech pathologist is working on oral exercises, and we will r epeat a swallow evaluation next week. Assessment: Mr. Peña is an 89-year-old patient in the rehabilitation unit with sequelae of strok e. He has dysarthria, dysphagia, and likely an aspiration pneumonia, decreased mobility, decreased p hysical functioning, he is fed by PEG tube. He has dyslipidemia, diverticulitis, jhj-kfsbnwi-iimoosk nt diabetes mellitus, diabetic peripheral neuropathy, shingles, ischemic cardiac disease, tongue canc er, hypothyroidism. The speech pathologist did indicate that he has had several rounds of radiation to the throat, making it very difficult for him to be able to protect his airway and likely the etiol ogy of the aspiration pneumonia. Plan: He will work hard on keeping the oral area clean to minimize the risk of additional aspiration , will be on IV antibiotics for now. Of course, tube feedings for nutrition and medications administ ered by tube as well. He will work hard on with physical and occupational therapy as well. Comorbidities That Are Impacting Rehabilitation: The big comorbid is likely aspiration pneumonia req uiring IV antibiotics which must be continued. He will have IV fluids given as well and will work ob viously on him feeding on his own, which he actually attempted yesterday and did fairly well, being able to do gravity feeding with syringe. LB/MODL Voice ID: [id number] Report ID: [id number]
[2024-05-07] MEDS: GUAIFENESIN 600 MG SA TAB PO SCH (09:04)
[2024-05-08] MEDS: NA CHLORIDE 0.9% 1,000 ML IV SCH (10:09)
[2024-05-08] MEDS: LOPERAMIDE HCL 2 MG CAPSULE FT PRN (10:15)
--- NOTE | 2024-05-08 10:16 | RAD REPORT ---
EXAM: CT brain without contrast HISTORY: Lethargy COMPARISON: April 27, 2024 TECHNIQUE: Multiple contiguous axial images were obtained and a CT of the brain without contrast.. Sagittal and coronal reconstruction performed. Automated exposure control, adjustment of the mA and/or kV according to patient size, and/or iterative reconstruction. Unless otherwise specified, incidental f indings do not require dedicated imaging follow-up FINDINGS: An intracranial bleed is not seen Ventricles are normal caliber No extra-axial fluid collection noted Low-density right deepak has the appearance of an old infarction. Prominent cerebral atrophy. No fluid within the visualized sinuses or mastoids noted. IMPRESSION: No acute intracranial abnormality noted.
[2024-05-08 11:01] LABS: Absolute Basophils 0.1 K/uL (0-0.5); Absolute Lymphocytes (CBC) 0.7 K/uL (0.7-4.9); Absolute Monocytes 0.9 K/uL (0.1-1.3); Absolute Neutrophil 9.1 K/uL (1.8-8.0); Basophils % 0.6 % (0-1.3); Eosinophils % 0.1 % (0-4.4); Hematocrit 38.1 % (39.6-49.0); Lymphocytes % 6.1 % (15.3-44.8); MCH 34.1 pg (27.0-35.0); MCHC 34.2 g/dL (32.0-36.0); MCV 99.6 fL (80-100); MPV 9.4 fL (7.6-11.3); Monocytes % 8.2 % (3.3-12.3); Platelets 186 thou/uL (152-406); RBC Red Blood Cell Count 3.83 M/uL (4.33-5.43); Red Cell Distribution Width 16.2 % (12.1-15.2)
--- NOTE | 2024-05-08 12:33 | CON ---
Reason For Consultation: This is an 89-year-old male I was consulted for pneumonia and urinary tract infection evaluation and treatment. History Of Present Illness: The patient is currently admitted to rehab hospital with significant pas t medical history of dyslipidemia; noninsulin-dependent diabetes mellitus; diabetic neuropathy; diver ticulitis; shingles, on suppressive treatment with Valtrex; ischemic heart disease; lung cancer stage IV; hypothyroidism with left-sided weakness, slurred speech, and mild aphasia. I was consulted to e valuate the patient for urinary tract infection and left lower lobe pneumonia seen on chest x-ray. T he patient denies any headache, nausea, vomiting, chest pain, abdominal pain, constipation, or diarrh ea. Has left-sided shoulder discomfort. Past Medical History: As per HPI. Past Surgical History: Robotic cardiac bypass surgery; cholecystectomy; C6-C7 anterior diskectomy, r ight-sided repair and nodule removed from the left side of the neck. Current Medications: Include Zosyn. See MARs for other medications. Allergies: NO KNOWN DRUG ALLERGIES. Review of Systems: Ten-point review was performed. Physical Examination: General: This is an 89-year-old male, lying in bed, not in any acute cardiopulmonary distress. Vital Signs: Temperature 97. T-max of 99.6. Pulse 73. Respirations 20. Blood pressure 134/61. HEENT: Unremarkable. Neck: Supple. Lungs: Basal crackles, left more than right. Heart: S1, S2. Regular. Abdomen: Soft, nontender. Bowel sounds present. Extremities: No edema. Laboratory Data: Shows WBC 10.7, hemoglobin 13, platelets are 186. Chemistry shows BUN of 15, creat inine 0.9. Albumin level is 2.3, prealbumin is 13.3. Micro Data: Urine cultures are growing E coli, sensitive to Zosyn and Rocephin. Imaging: Chest x-ray shows the patient has mild left base lung opacities suggestive of developing pn eumonitis and aspiration. Assessment And Plan: 89-year-old male with multiple medical problems including diabetes mellitus, ca ncer of tongue, diverticulitis, diabetic neuropathy, shingles, ischemic heart disease, hypothyroidism , dyslipidemia with low-grade fevers. Urine cultures are showing Escherichia coli. No blood culture s are available at this time. We will recommend to switch the patient to Rocephin to cover for left lower lobe pneumonia and urinary tract infection secondary to Escherichia coli, total treatment for 1 0 days. Anemia of chronic disease. Moderate protein-calorie malnourishment. Monitor signs of infec tion with WBC and fever trend. Thank you, Dr. Giang, for consult. NF/MODL Voice ID: [id number] Report ID: [id number]
--- NOTE | 2024-05-08 15:37 | RAD REPORT ---
EXAMINATION: ONE VIEW CHEST XR CLINICAL INDICATION: r/o pneumonia TECHNIQUE: Frontal chest projection is submitted. Examination is limited by patient positioning and t echnique. COMPARISON: 05/05/2024 FINDINGS: [id number] left lower lobe lung infiltrate compatible with pneumonia. The lungs are otherwise g rossly clear. The heart is upper limit of normal in size. No displaced fractures identified. Sternotomy wires. Cervical spine hardware plate. IMPRESSION: [id number] left lower lobe pneumonia.
[2024-05-08] MEDS: ALBUTEROL 2.5 MG/3 ML NEB SOL NEB SCH (19:00)
--- NOTE | 2024-05-08 23:03 | PN ---
Date of Progress Note: 05/08/2024 Time Of Service: 1:20 p.m. Subjective: Mr. Peña is resting comfortably. The patient is of course more on a PEG tube. He i s somewhat more sleepy today, less energy. Staff noted more slumping towards 1 side to his right christian e and had to be stimulated to maintain his level of interaction. A CT scan of the head was done, vincent t study identified no acute ischemic or hemorrhagic changes. It did show a low-density area in the r ight deepak which is an old infarct producing new of course clinically left-sided weakness. He had a c hest x-ray done and compared to one on the and this is , and study done today showed mild-to -moderate left lower lobe pneumonia. The patient was seen by Dr. Maldonado in the ID Service and he swi tched antibiotics to meropenem since the patient has history of ESBL E. coli. The patient also again will continue those as followed by Dr. Maldonado in ID Service is very helpful. Physical Examination: Vital Signs: Blood pressure 134/61, pulse 75, respiratory rate 20, temperature 97.4, oxygen saturati on 93%. General: Again, Mr. Peña is resting comfortably, somewhat sleepy, but arousable and has to be st imulated to maintain interaction. Chest: He has decreased breath sounds. Abdomen: Soft. Extremities: No edema, cyanosis, or clubbing noted. Laboratory Studies: White blood cell count 10.7, hemoglobin 13.0, platelets 186. There is a pending arterial blood gas that was done. He has procalcitonin today of 0.79, which is elevated. Lactate d ehydrogenase 205. His glucose ranged from 101 to 134. Medications: Tylenol Extra Strength 500 mg every 6 hours as needed, albuterol nebulizer 2.5 mg nebul izer every 6 hours, Cordarone 200 mg twice daily, Eliquis 5 mg twice daily, aspirin 81 mg daily, Lipi tor 40 mg at bedtime, Glucerna 1.5 Nando 300 mL per tube feeding 4 times daily, Pepcid 200 mg twice jose ly, gabapentin 300 mg twice daily, guaifenesin 600 mg twice daily, Synthroid 0.125 mg daily, lidocain e patch apply topically daily as needed, Imodium 4 mg fluid for diarrhea, Antivert 25 mg twice daily, melatonin 5 mg at bedtime, Glucophage 500 mg twice daily, piperacillin and tazobactam that is also m anaged by Dr. Maldonado, sodium chloride receiving 75 cc an hour, and Valtrex 500 mg at bedtime. Progress Made With Physical, Occupational, And Speech Therapy: With physical therapy today, he did s upine transfers with maximum assistance, multiple czo-zm-tkuol transfers also with maximum assistance . Did need increased assistance with all activities today as noted he has been somewhat more sleepy today. With occupational therapy, completed upper extremity exercises and worked on dexterity, coord ination, and addressing the PEG tube feeding. He was 80% and he was able to do pouring of the liquid food into the syringe prior to him maintaining the tube feeding. Regarding speech, did d iaphragmatic breathing 5 seconds he was maximum on the incentive spirometer of 500 cc, but then reduced quickly to 250. Work done swallowing exercises and pitch glide exercises wi th the speech pathologist. Assessment And Plan: Mr. Peña is an 89-year-old patient admitted with sequelae of stroke. He calderon s significant dysarthria, dysphagia, and is on PEG tube feeding. The patient has been somewhat more lethargic and has had chest x-ray showing pneumonia. He is on piperacillin and tazobactam, seen by Cyndy Maldonado on the ID Service, make adjustments appropriately adding meropenem. The patient also has V altrex for suppression of herpes outbreak. Sodium chloride for his dehydration is now at 75 cc an ho ur, Imodium for loose stools which have improved, Antivert for nausea and vertigo symptoms, gabapenti n for neuropathic pain, Pepcid for reflux, aspirin for stroke risk reduction, Eliquis for DVT risk re duction, Cordarone for hypertension and nebulizer treatment, albuterol 2.5 mg every 6 hours as needed , Tylenol also for pain control. In terms of plan, he will continue with physical, occupational, and speech therapy 3.5 hours, 5 of 7 days. Continue with his comorbid condition medications which have been noted and also help of Dr. Maldonado appreciated. LB/MODL Voice ID: [id number] Report ID: [id number]
--- NOTE | 2024-05-09 13:48 | P.PN ---
Subjective Date of Service: 05/09/24 Chief Complaint: no new complaint Subjective: Doing well Review of Systems 10-point ROS is otherwise unremarkable Physical Examination - Vital Signs Temperature: 98.4 F Blood Pressure: 115/55 Pulse: 75 Respirations: 20 Pulse Ox (%): 95 - Physical Exam General: Oriented x3 HEENT: Atraumatic, Normocephalic Neck: Supple, JVD not distended Respiratory: Clear to auscultation bilaterally Cardiovascular: No edema, Normal pulses Gastrointestinal: Normal bowel sounds Musculoskeletal: No clubbing, No swelling - Studies 05/09/24 11:02: POC Glucose 179 H 05/09/24 06:53: POC Glucose 173 H 05/08/24 19:51: POC Glucose 101 05/08/24 16:02: POC Glucose 105 Laboratory Results WBC 10.70 thou/uL (4.3-10.9) 05/08/24 10:36 RBC 3.83 M/uL (4.33-5.43) L 05/08/24 10:36 Hgb 13.0 g/dL (13.6-17.9) L 05/08/24 10:36 Hct 38.1 % (39.6-49.0) L 05/08/24 10:36 MCV 99.6 fL (80-100) 05/08/24 10:36 MCH 34.1 pg (27.0-35.0) 05/08/24 10:36 MCHC 34.2 g/dL (32.0-36.0) 05/08/24 10:36 RDW 16.2 % (12.1-15.2) H 05/08/24 10:36 Plt Count 186 thou/uL (152-406) 05/08/24 10:36 MPV 9.4 fL (7.6-11.3) 05/08/24 10:36 Neutrophils % 85.0 % (41.7-73.7) H 05/08/24 10:36 Lymphocytes % 6.1 % (15.3-44.8) L 05/08/24 10:36 Monocytes % 8.2 % (3.3-12.3) 05/08/24 10:36 Eosinophils % 0.1 % (0-4.4) 05/08/24 10:36 Basophils % 0.6 % (0-1.3) 05/08/24 10:36 Absolute Neutrophils 9.1 K/uL (1.8-8.0) H 05/08/24 10:36 Absolute Lymphocytes 0.7 K/uL (0.7-4.9) 05/08/24 10:36 Absolute Monocytes 0.9 K/uL (0.1-1.3) 05/08/24 10:36 Absolute Eosinophils 0.0 K/uL (0-0.5) 05/08/24 10:36 Absolute Basophils 0.1 K/uL (0-0.5) 05/08/24 10:36 Sodium 138 mEq/L (136-145) 05/04/24 06:31 Potassium 3.5 mEq/L (3.5-5.1) 05/04/24 06:31 Chloride 106 mEq/L (98-107) 05/04/24 06:31 Carbon Dioxide 26 mEq/L (21-32) 05/04/24 06:31 Anion Gap 9.5 mEq/L (5.0-15.0) 05/04/24 06:31 BUN 15 mg/dL (7-18) 05/04/24 06:31 Creatinine 0.98 mg/dL (0.70-1.30) 05/04/24 06:31 Est GFR (CKD-EPI) 74 ml/min (=/>90) L 05/04/24 06:31 Glucose 136 mg/dL (74-106) H 05/04/24 06:31 POC Glucose 179 mg/dL (65-120) H 05/09/24 11:02 Calcium 7.9 mg/dL (8.5-10.1) L 05/04/24 06:31 Magnesium 1.6 mg/dL (1.6-2.4) 05/04/24 06:31 Lactate Dehydrogenase 205 U/L (87-241) 05/08/24 10:36 Albumin 2.3 g/dL (3.4-5.0) L 05/04/24 06:31 Prealbumin 13.3 mg/dL (20-40) L 05/04/24 06:31 Procalcitonin 0.79 ng/mL (<0.50) H 05/08/24 10:36 Urine Color Yellow (Yellow) 05/04/24 04:40 Urine Clarity Clear (Clear) 05/04/24 04:40 Urine pH 6.0 (5.0-7.0) 05/04/24 04:40 Ur Specific [place] 1.015 (1.005-1.030) 05/04/24 04:40 Glucose (UA)(Auto) Negative (Negative) 05/04/24 04:40 Urine Ketones Negative (Negative) 05/04/24 04:40 Urine Blood Negative (Negative) 05/04/24 04:40 Urine Nitrite Negative (Negative) 05/04/24 04:40 Urine Bilirubin Negative (Negative) 05/04/24 04:40 Urine Urobilinogen 2+ (Normal) H 05/04/24 04:40 Ur Leukocyte Esterase Negative Mylene/uL (Negative) 05/04/24 04:40 Urine RBC <5 /HPF (None Seen) 05/04/24 04:40 Urine WBC <5 /HPF (<5) 05/04/24 04:40 Ur Squamous Epith Cells <5 /HPF (None Seen) 05/04/24 04:40 Urine Bacteria None seen /HPF (<20) 05/04/24 04:40 Urine Mucus Slight /HPF (None Seen) 05/04/24 04:40 Urine Culture Reflexed Not needed 05/04/24 04:40 Urine Total Protein Negative (Negative) 05/04/24 04:40 Microbiology Data (last 24 hrs): Urine cultures are growing E coli Imaging: Chest x-ray shows the patient has mild left base lung opacities suggestive of developing pneumonitis and aspiration Imagings Data: Active Medications Acetaminophen (Acetaminophen 500 Mg Tab) 500 mg PO Q6H PRN PRN Reason: Pain scale 5-7 (Moderate) Albuterol Sulfate (Albuterol 2.5 Mg/3 Ml Neb Yoselin) 2.5 mg NEB [id number] [facility] Last Admin: 05/09/24 08:10 Dose: 2.5 mg Amiodarone HCl (Amiodarone Hcl 200 Mg Tab) 200 mg FT BID [facility] Last Admin: 05/09/24 08:13 Dose: 200 mg Apixaban (Apixaban 5 Mg Tablet) 5 mg FT BID [facility] Last Admin: 05/09/24 08:13 Dose: 5 mg Aspirin (Aspirin 81 Mg Chewable Tablet) 81 mg FT DAILY [facility] Last Admin: 05/09/24 08:13 Dose: 81 mg Atorvastatin Calcium (Atorvastatin 40 Mg Tab) 40 mg FT BEDTIME [facility] Last Admin: 05/08/24 20:39 Dose: 40 mg Enteral Nutritional Formula (Glucerna 1.5 Nando 1,000 Ml Bot) 300 ml FT QID [facility] Last Admin: 05/09/24 08:14 Dose: 300 ml Famotidine (Famotidine 20 Mg Tab) 20 mg FT BID [facility] Last Admin: 05/09/24 08:13 Dose: 20 mg Gabapentin (Gabapentin 300 Mg Cap) 300 mg FT BID [facility] Last Admin: 05/09/24 08:13 Dose: 300 mg Guaifenesin (Guaifenesin 600 Mg Sa Tab) 600 mg PO BID [facility] Last Admin: 05/09/24 08:13 Dose: 600 mg Piperacillin Sod/Tazobactam (Sod 3.375 gm/ Sodium Chloride) 100 mls @ 25 mls/hr IV Q8HR [facility]; Protocol Last Admin: 05/09/24 08:13 Dose: 100 mls Sodium Chloride (Ns 1000 Ml Ivbag) 1,000 mls @ 75 mls/hr IV .[id number] [facility] Last Admin: 05/08/24 21:40 Dose: 1,000 mls Insulin Human Regular (Insulin Regular (Human) 100 Unit/Ml) 0 unit SQ ACHS [facility]; Protocol Last Admin: 05/09/24 11:30 Dose: Not Given Levothyroxine Sodium (Levothyroxine Sod 0.125 Mg Tab) 0.125 mg FT DAILYAC [facility] Last Admin: 05/09/24 07:09 Dose: 0.125 mg Lidocaine (Lidocaine 4% Patch) 1 patch TOP DAILY [facility] Last Admin: 05/09/24 08:14 Dose: 1 patch Loperamide HCl (Loperamide Hcl 2 Mg Capsule) 4 mg FT UD PRN PRN Reason: DIARRHEA Last Admin: 05/08/24 10:15 Dose: 4 mg Meclizine HCl (Meclizine Hcl 12.5 Mg Tab) 25 mg FT BID [facility] Last Admin: 05/09/24 08:13 Dose: 25 mg Melatonin (Melatonin 5 Mg Tablet) 5 mg PO BEDTIME [facility] Last Admin: 05/08/24 20:38 Dose: 5 mg Metformin HCl (Metformin Hcl 500 Mg Tab) 500 mg FT BIDWM [facility] Last Admin: 05/09/24 08:13 Dose: 500 mg Valacyclovir HCl (Valacyclovir 500 Mg Tab) 500 mg FT BEDTIME [facility] Last Admin: 05/08/24 20:38 Dose: 500 mg Medications List Reviewed: Yes Assessment And Plan - Plan 1. Urine cultures are showing Escherichia coli. No blood cultures are available at this time. We will recommend for patient to continue Zosyn to cover for left lower lobe pneumonia and urinary tract infection secondary to Escherichia coli, total treatment for 10 days. 2. Anemia of chronic disease. Moderate protein-calorie malnourishment. Monitor signs of infection with WBC and fever trend.
--- NOTE | 2024-05-10 17:46 | P.PN ---
Date of Service: 05/10/24 Subjective Date of Service: 05/10/24 Chief Complaint: no new complaint Review of Systems 10-point ROS is otherwise unremarkable Objective Temp Pulse Resp BP Pulse Ox 98.6 F 75 18 137/60 91 05/10/24 07:37 05/10/24 07:37 05/10/24 07:37 05/10/24 07:37 05/10/24 07:37 - Physical Exam General: Oriented x3, speech slow HEENT: Atraumatic, Normocephalic On NC 2L Neck: Supple, JVD not distended Respiratory: Clear to auscultation bilaterally Cardiovascular: No edema, Normal pulses Gastrointestinal: Normal bowel sounds Musculoskeletal: No clubbing, No swelling - Studies Microbiology 05/04/24 04:40 Clean Catch Urine [place] Count - Final >100,000 CFU/ML. 05/04/24 04:40 Clean Catch Urine - Final Escherichia Coli 05/10/24 16:50: POC Glucose 142 H 05/10/24 12:45: POC Glucose 131 H 05/10/24 07:23: POC Glucose 127 H 05/09/24 20:46: POC Glucose 139 H Laboratory Results WBC 10.70 thou/uL (4.3-10.9) 05/08/24 10:36 RBC 3.83 M/uL (4.33-5.43) L 05/08/24 10:36 Hgb 13.0 g/dL (13.6-17.9) L 05/08/24 10:36 Hct 38.1 % (39.6-49.0) L 05/08/24 10:36 MCV 99.6 fL (80-100) 05/08/24 10:36 MCH 34.1 pg (27.0-35.0) 05/08/24 10:36 MCHC 34.2 g/dL (32.0-36.0) 05/08/24 10:36 RDW 16.2 % (12.1-15.2) H 05/08/24 10:36 Plt Count 186 thou/uL (152-406) 05/08/24 10:36 MPV 9.4 fL (7.6-11.3) 05/08/24 10:36 Neutrophils % 85.0 % (41.7-73.7) H 05/08/24 10:36 Lymphocytes % 6.1 % (15.3-44.8) L 05/08/24 10:36 Monocytes % 8.2 % (3.3-12.3) 05/08/24 10:36 Eosinophils % 0.1 % (0-4.4) 05/08/24 10:36 Basophils % 0.6 % (0-1.3) 05/08/24 10:36 Absolute Neutrophils 9.1 K/uL (1.8-8.0) H 05/08/24 10:36 Absolute Lymphocytes 0.7 K/uL (0.7-4.9) 05/08/24 10:36 Absolute Monocytes 0.9 K/uL (0.1-1.3) 05/08/24 10:36 Absolute Eosinophils 0.0 K/uL (0-0.5) 05/08/24 10:36 Absolute Basophils 0.1 K/uL (0-0.5) 05/08/24 10:36 Sodium 138 mEq/L (136-145) 05/04/24 06:31 Potassium 3.5 mEq/L (3.5-5.1) 05/04/24 06:31 Chloride 106 mEq/L (98-107) 05/04/24 06:31 Carbon Dioxide 26 mEq/L (21-32) 05/04/24 06:31 Anion Gap 9.5 mEq/L (5.0-15.0) 05/04/24 06:31 BUN 15 mg/dL (7-18) 05/04/24 06:31 Creatinine 0.98 mg/dL (0.70-1.30) 05/04/24 06:31 Est GFR (CKD-EPI) 74 ml/min (=/>90) L 05/04/24 06:31 Glucose 136 mg/dL (74-106) H 05/04/24 06:31 POC Glucose 179 mg/dL (65-120) H 05/09/24 11:02 Calcium 7.9 mg/dL (8.5-10.1) L 05/04/24 06:31 Magnesium 1.6 mg/dL (1.6-2.4) 05/04/24 06:31 Lactate Dehydrogenase 205 U/L (87-241) 05/08/24 10:36 Albumin 2.3 g/dL (3.4-5.0) L 05/04/24 06:31 Prealbumin 13.3 mg/dL (20-40) L 05/04/24 06:31 Procalcitonin 0.79 ng/mL (<0.50) H 05/08/24 10:36 Urine Color Yellow (Yellow) 05/04/24 04:40 Urine Clarity Clear (Clear) 05/04/24 04:40 Urine pH 6.0 (5.0-7.0) 05/04/24 04:40 Ur Specific [place] 1.015 (1.005-1.030) 05/04/24 04:40 Glucose (UA)(Auto) Negative (Negative) 05/04/24 04:40 Urine Ketones Negative (Negative) 05/04/24 04:40 Urine Blood Negative (Negative) 05/04/24 04:40 Urine Nitrite Negative (Negative) 05/04/24 04:40 Urine Bilirubin Negative (Negative) 05/04/24 04:40 Urine Urobilinogen 2+ (Normal) H 05/04/24 04:40 Ur Leukocyte Esterase Negative Mylene/uL (Negative) 05/04/24 04:40 Urine RBC <5 /HPF (None Seen) 05/04/24 04:40 Urine WBC <5 /HPF (<5) 05/04/24 04:40 Ur Squamous Epith Cells <5 /HPF (None Seen) 05/04/24 04:40 Urine Bacteria None seen /HPF (<20) 05/04/24 04:40 Urine Mucus Slight /HPF (None Seen) 05/04/24 04:40 Urine Culture Reflexed Not needed 05/04/24 04:40 Urine Total Protein Negative (Negative) 05/04/24 04:40 Microbiology Data (last 24 hrs): Urine cultures are growing E coli on 05/04/24 Imaging: Chest x-ray shows the patient has mild left base lung opacities suggestive of developing pneumonitis and aspiration Active Medications Acetaminophen (Acetaminophen 500 Mg Tab) 500 mg PO Q6H PRN PRN Reason: Pain scale 5-7 (Moderate) Albuterol Sulfate (Albuterol 2.5 Mg/3 Ml Neb Yoselin) 2.5 mg NEB [id number] SHAJI Last Admin: 05/10/24 13:11 Dose: 2.5 mg Amiodarone HCl (Amiodarone Hcl 200 Mg Tab) 200 mg FT BID [facility] Last Admin: 05/10/24 07:47 Dose: 200 mg Apixaban (Apixaban 5 Mg Tablet) 5 mg FT BID [facility] Last Admin: 05/10/24 07:47 Dose: 5 mg Aspirin (Aspirin 81 Mg Chewable Tablet) 81 mg FT DAILY [facility] Last Admin: 05/10/24 07:47 Dose: 81 mg Atorvastatin Calcium (Atorvastatin 40 Mg Tab) 40 mg FT BEDTIME [facility] Last Admin: 05/09/24 21:07 Dose: 40 mg Enteral Nutritional Formula (Glucerna 1.5 Nando 1,000 Ml Bot) 300 ml FT QID [facility] Last Admin: 05/10/24 16:55 Dose: 300 ml Famotidine (Famotidine 20 Mg Tab) 20 mg FT BID [facility] Last Admin: 05/10/24 07:47 Dose: 20 mg Gabapentin (Gabapentin 300 Mg Cap) 300 mg FT BID [facility] Last Admin: 05/10/24 07:47 Dose: 300 mg Guaifenesin (Guaifenesin 600 Mg Sa Tab) 600 mg PO BID [facility] Last Admin: 05/10/24 07:47 Dose: 600 mg Piperacillin Sod/Tazobactam (Sod 3.375 gm/ Sodium Chloride) 100 mls @ 25 mls/hr IV Q8HR [facility]; Protocol Stop: 05/12/24 17:01 Last Admin: 05/10/24 16:55 Dose: 100 mls Sodium Chloride (Ns 1000 Ml Ivbag) 1,000 mls @ 75 mls/hr IV .[id number] [facility] Last Admin: 05/10/24 16:54 Dose: 1,000 mls Insulin Human Regular (Insulin Regular (Human) 100 Unit/Ml) 0 unit SQ ACHS [facility]; Protocol Last Admin: 05/10/24 16:30 Dose: Not Given Lactobacillus Acidoph/Bulgaricus (Lactobacillus/Acidophilus Tab) 1 tab PO DAILY SHAJI Levothyroxine Sodium (Levothyroxine Sod 0.125 Mg Tab) 0.125 mg FT DAILYAC [facility] Last Admin: 05/10/24 07:46 Dose: 0.125 mg Lidocaine (Lidocaine 4% Patch) 1 patch TOP DAILY [facility] Last Admin: 05/10/24 07:47 Dose: 1 patch Loperamide HCl (Loperamide Hcl 2 Mg Capsule) 4 mg FT UD PRN PRN Reason: DIARRHEA Last Admin: 05/08/24 10:15 Dose: 4 mg Meclizine HCl (Meclizine Hcl 12.5 Mg Tab) 25 mg FT BID SHAJI Last Admin: 05/10/24 07:47 Dose: 25 mg Melatonin (Melatonin 5 Mg Tablet) 5 mg PO BEDTIME SHAJI Last Admin: 05/09/24 21:07 Dose: 5 mg Metformin HCl (Metformin Hcl 500 Mg Tab) 500 mg FT BIDWM SHAJI Last Admin: 05/10/24 16:55 Dose: 500 mg Nystatin (Nystatin Pwdr [id number] Unit/Gm) 1 appl TOP BID SHAJI Valacyclovir HCl (Valacyclovir 500 Mg Tab) 500 mg FT BEDTIME SHAJI Last Admin: 05/09/24 21:07 Dose: 500 mg Assessment And Plan - Plan 1. Urine cultures are showing Escherichia coli. No blood cultures are available at this time. We will recommend for patient to continue Zosyn to cover for left lower lobe pneumonia and urinary tract infection secondary to Escherichia coli, total treatment for 10 days. Monitor signs of infection with WBC and fever trend 2. Anemia of chronic disease. Moderate protein-calorie malnourishment. Defer to primary Case discussed with DR. Maldonado during round in agreement
[2024-05-10] MEDS: NYSTATIN PWDR 100000 UNIT/GM TOP SCH (20:33)
[2024-05-10] MEDS: ACETAMINOPHEN 500 MG TAB PO PRN (21:14)
--- NOTE | 2024-05-10 23:04 | PN ---
Date of Progress Note: 05/10/2024 Time Of Service: 1:20 p.m. Subjective: Mr. Peña is more alert today, ambulating around the hallway. He was able to appropr iately answer questions, although his speed of processing is slow as he has a non-fluent expressive a phasia. He does have his PEG tube in place and is able to manage the issue of feeding. He did have 1 loose stool earlier today. Yesterday, there were 3 and the Imodium seems to be making a difference . The likely etiology of that is the patient is receiving IV antibiotics for pneumonia and he has calderon d 2 feedings, which are likely contributing. He does not have evidence of GI infection. No blood in the stool. No mucus. No pneumonia, he is receiving IV antibiotics. He is partly manage d by Dr. Maldonado with the ID Service and he did mention he wanted to switch to meropenem for possible ESBL E coli. However, the patient is still on Zosyn. He did mention that antibiotics should be cont inued IV, total of 10 days, and that should be just before the patient is ready for discharge. The p atient otherwise has no new complaints. Objective: No significant things such as myalgias, arthralgias. No fevers, chills. Again, slow to respond, but the patient is able to appropriately answer questions and is alert and interactive and m obilizing very slowly. Physical Examination: Vital Signs: Blood pressure 132/60, pulse 76, respiratory rate 20, temperature 97, oxygen saturation 94%, and his weight 175 pounds, height 6 feet 1 inch, BMI 23.1. General: Again, Mr. Peña is in between sessions resting comfortably. HEENT: He appears normocephalic, atraumatic. Sclerae anicteric. Oropharynx moist. Neck: Supple. Chest: Clear. Extremities: No significant clubbing, cyanosis, or edema noted. Neuro: He does have diffuse weakness and of course debility of upper and lower extremities. Laboratory Studies: Two days ago, white blood cell count 10.7, hemoglobin 13.0, platelets 186. An A BG was ordered on the , however, the study appears to still be pending. Perhaps there is an issu e with the ability to get the study done. His blood sugars range from 127 [address] Jacqueline carter PA today and as mentioned we will continue with antibiotics. X-ray/imaging: No new x-rays or imaging. Progress Made With Physical, Occupational, And Speech Therapy: Today, with his occupational therapy, Mr. Peña did work with upper extremities using 2-pound dowel rods, he did 3 sets of 10 exercises . The therapist noted he was somewhat lethargic, but then later on, they became more alert, interact felisha, and continue to improve with his strength and his endurance. Regarding his speech, he did voice that his speech pathologist did not feel well due to the pneumonia. He did more deep breathing tech niques. He was also encouraged to use incentive spirometry. She noted he coughed copious amount of phlegm and was able to clear after he did some more deep breathing. While there, he was on 1.5 L of oxygen via nasal cannula, oxygen saturation around 91%. She noted he was able to move the incentive spirometer about 750 cc. He did complete tongue retraction exercises and 5 gliding falsetto exercise s for improved laryngeal elevation. She noted to refuse ice chip trials in the session. Assessment: Mr. Peña is an 89-year-old patient in the rehabilitation unit with sequelae of strok e. He has of course aspiration pneumonia. He has significant dysarthria, dysphagia, decreased verba l fluency, and is being treated for aspiration pneumonia. 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 Plan: Continue physical, occupational, and speech therapy 3.5 hours, 5 of 7 days. We will continue with all his comorbid condition medications as noted. Plan is for him to complete IV antibiotics bef ore his discharge. Depending on his progress, he may require longer stay such as a retirement f acility if he is unable to go home and family is unable to manage the PEG tube if he has to go home a nd manage the care the patient needs, which is a very high level as he required moderate assistance w ith [id number] transfers, mobilization to a commode to be off and on, to get another shower, to address his body without falling. He will also need some help to make safe decisions in terms of saf ety awareness. CÉSAR/SARAH Voice ID: [id number] Report ID: [id number]
[2024-05-11 06:15] LABS: Absolute Basophils 0.1 K/uL (0-0.5); Absolute Eosinophils 0.2 K/uL (0-0.5); Absolute Lymphocytes (CBC) 0.6 K/uL (0.7-4.9); Absolute Monocytes 0.5 K/uL (0.1-1.3); Absolute Neutrophil 9.9 K/uL (1.8-8.0); Basophils % 0.6 % (0-1.3); Eosinophils % 1.4 % (0-4.4); Hematocrit 43.2 % (39.6-49.0); Hemoglobin 14.7 g/dL (13.6-17.9); Lymphocytes % 5.4 % (15.3-44.8); MCHC 33.9 g/dL (32.0-36.0); MCV 100.3 fL (80-100); Monocytes % 4.4 % (3.3-12.3); Neutrophils % 88.2 % (41.7-73.7); Nucleated Red Blood Cells % 0.1 % (0-0); Platelets 244 thou/uL (152-406); RBC Red Blood Cell Count 4.31 M/uL (4.33-5.43); Red Cell Distribution Width 16.6 % (12.1-15.2)
[2024-05-11 06:39] LABS: Anion Gap 9.3 mEq/L (5.0-15.0); Magnesium 2.3 mg/dL (1.6-2.4); Potassium 4.3 mEq/L (3.5-5.1); Prealbumin 10.8 mg/dL (20-40)
[2024-05-11 07:56] LABS: Blood Morphology Comment NOTED (NOT SEEN); Differential Total Cells Count 100; Lymphocytes 2 % (15-42); Monocytes 1 % (0-10); Platelet Estimate ADEQ; Segmented Neutrophils 89 % (40-80)
[2024-05-11] MEDS: LACTOBACILLUS/ACIDOPHILUS TAB PO SCH (08:00)
[2024-05-11 08:56] VITALS: O2SAT 91
--- NOTE | 2024-05-11 11:09 | RAD REPORT ---
EXAMINATION: ONE VIEW CHEST XR CLINICAL INDICATION: fever TECHNIQUE: Frontal chest projection is submitted. Examination is limited by patient positioning and t echnique. COMPARISON: 05/08/2024 FINDINGS: Bilateral pulmonary opacities, greater on the left particularly in the right lung base likely represe nting pneumonia. The heart is upper limit of normal in size. Sternotomy wires present. Cervical hardware plate.
[2024-05-11 11:56] VITALS: BP 105/58; TEMP 100.7
[2024-05-11] MEDS: Meropenem 1,000 MG in NA CHLORIDE 0.9% 100 ML IV SCH (12:00)
[2024-05-11] MEDS ORDERED: VANCOMYCIN 1 GM in NA CHLORIDE 0.9% 250 ML IVPB SCH (16:00)
[2024-05-11] MEDS: VANCOMYCIN 2 GM in NA CHLORIDE 0.9% 500 ML IVPB ONE (16:25)
--- NOTE | 2024-05-11 19:41 | PN ---
Subjective: The patient has decreased consciousness and on Ventimask as per staff. The patient was also running a fever up to 100.7. Concern regarding possible aspiration. Objective: Vital Signs: Reviewed. Lungs: Basal crackles. Heart: S1, S2. Regular. Abdomen: Soft, nontender. Bowel sounds present. Extremities: No edema. Laboratory Data: WBC 11.2, increased from before. Hemoglobin 14.7, platelets 244. Urine culture is showing E coli. Assessment And Plan: Urinary tract infection. We will also recommend to cover for pneumonitis with vancomycin and continue meropenem. Also order blood cultures. Leukocytosis. Altered mental status. We will follow the patient as needed. Consider transferring the patient to the medical floor. NF/MODL Voice ID: [id number] Report ID: [id number]
[2024-05-12] MEDS ORDERED: VANCOMYCIN 1.5 GM in NA CHLORIDE 0.9% 500 ML IVPB SCH (16:00)
== END 2024-05-11 16:27 | disposition short-term general hospital (02) | DRG 56 ==
LOC: 5TH 05-04 01:28
PROVIDERS: ADMIT Psychiatry & Neurology Neurology with Special Qualifications in Child Neurology; ATTEND Psychiatry & Neurology Neurology with Special Qualifications in Child Neurology
DX: I69.320 Aphasia following cerebral infarction (principal); J69.0 Pneumonitis due to inhalation of food and vomit; K57.92 Diverticulitis of intestine, part unspecified, without perforation or abscess without bleeding; N39.0 Urinary tract infection, site not specified; E44.0 Moderate protein-calorie malnutrition; I69.328 Other speech and language deficits following cerebral infarction; E11.40 Type 2 diabetes mellitus with diabetic neuropathy, unspecified; B96.20 Unspecified Escherichia coli [E. coli] as the cause of diseases classified elsewhere; E78.5 Hyperlipidemia, unspecified; B02.9 Zoster without complications; I25.9 Chronic ischemic heart disease, unspecified; C02.9 Malignant neoplasm of tongue, unspecified; E03.9 Hypothyroidism, unspecified; I48.91 Unspecified atrial fibrillation; N28.9 Disorder of kidney and ureter, unspecified; I10 Essential (primary) hypertension; I25.10 Atherosclerotic heart disease of native coronary artery without angina pectoris; E86.0 Dehydration; E11.42 Type 2 diabetes mellitus with diabetic polyneuropathy; D63.8 Anemia in other chronic diseases classified elsewhere; Z68.23 Body mass index [BMI] 23.0-23.9, adult; Z93.1 Gastrostomy status; Z95.1 Presence of aortocoronary bypass graft
CPT/HCPCS: 36415; 36600; 70450; 71045; 80048; 81001; 82040; 82947; 83605; 83615; 83735; 84134; 84145; 85025; 87040; 87077; 87086; 87088; 87186; 92523; 92526; 94640; 97110; 97116; 97129; 97161; 97165; 97530; 97542; J1815; J2003; J2185; J2543; J3370; J7030; J7040; J7613; J8597

== ENCOUNTER 2024-05-11 16:41 | Inpatient (IN) | payer OTHER ==
[2024-05-11] MEDS ORDERED: ONDANSETRON 4 MG/2 ML VIAL IV PRN (16:42)
--- OUTSIDE RECORDS SUMMARY | 2024-05-11 16:44 | XMS REPORT | Clinical Summary ---
Author Name Unknown Organization [facility] [place] Address [address] [place] [address] Care Team Providers Care Principal Planner Name Role Phone Arjun Soto MD, Eduardo M Primary Care Provider [phone] Anton Dye MD Unavailable UnavailAnton Carey MD Unavailable UnavailEmma Simon MD Unavailable Romina Giordano MD Unavailable Pipo Dominguez MD Unavailable Sang Soto MD, Sang King Unavailable [email or web address] Tevin Randykeonanne [employer] Unavailable Haley Cisneros Unavailable [phone] Arjun Soto MD, Eduardo M Unavailable [phone] Allergies No known active allergies Medications * [...] on file Legal Sex Male 4:16 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 [employer]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[employer] Gender Identity Not on file Sexual Orientation Not on file Obstetrics History Plan of Treatment Health Maintenance Due Date Last Done Comments Pneumococcal Vaccine: 50+ Years (2 of 2 - PCV) 014 11/25/2012 COVID-19 Vaccine ( season) 2023 Influenza Vaccine (#1) 2023 03/03/2014 Insurance MEDICARE PART A AND B [employer] MEDICARE PART A AND B MEDICARE PART A AND B [employer] Care Teams Principal Planner Relationship Specialty Start Date End Date Newton Díza Jr., MD [address] [place] [id number] [email or web address] PCP - General 04/17/15 Anton Dye MD [address] [place] [id number] PCP - External Referring 08/17/12 Anton Dye MD [address] [place] [id number] PCP - External Follow Up A 08/17/12 Emma Norman MD [address] [place] [address] [email or web address] Physician 04/24/15 Romina Giordano MD [address] [place] [id number] [email or web address] Physician 04/24/15 Pipo Dominguez MD [address] [place] [phone] [email or web address] Physician 04/24/15 Sang Domínguez Jr., MD [email or web address] Physician 04/24/15 Hong Abarca APRN [address] [place] [phone] [email or web address] Nurse Practitioner 04/24/15 Haley Cisneros AuD [address] [facility] [address] [place] [address] Beverage Server 04/24/15 Newton Díaz Jr., MD [address] [place] [address] [email or web address] Physician 04/24/15
[2024-05-11] MEDS: NA CHLORIDE 0.9% 1,000 ML IV SCH (17:00)
[2024-05-11] MEDS: Meropenem 500 MG in NA CHLORIDE 0.9% 100 ML IV SCH (17:00)
[2024-05-11] MEDS: GLUCERNA 1.5 CAL 1,000 ML BOT FT SCH (17:00)
--- NOTE | 2024-05-11 17:02 | P.HP ---
Certification for Inpatient Patient admitted to: Inpatient With expected LOS: >2 Midnights Patient will require the following post-hospital care: None Practitioner: I am a practitioner with admitting privileges, knowledge of patient current condition, hospital course, and medical plan of care. Services: Services provided to patient in accordance with Admission requirements found in Title 42 Section 412.3 of the Code of Federal Regulations Patient History Date of Service: 05/11/24 Reason for admission: Pneumonia History of Present Illness: 89-year-old male with history of atrial fibrillation on chronic anticoagulation, hyperlipidemia, diabetes mellitus type 2, CAD, throat cancer, hypothyroidism with history of right pontine remote stroke was recently in our hospital and admitted for dysphagia, left-sided weakness. He failed a swallow screen and was unable to tolerate anything by mouth without increased risk for aspiration so he had a PEG tube placed. After this patient was accepted to inpatient rehab where he has been since 05/04, is currently 05/11. Over the course of the last 2 days patient has become increasingly weak, lethargic, unable to work with PT. He also developed a low-grade fever to 100.7 today and his white blood cell count was mildly elevated at 11. He had a urine culture performed on 05/04 which showed E. coli, he has been on appropriate antibiotics since then for the urinary tract infection. Subsequent chest x-ray was performed earlier today which showed concern for possibl pneumonia. Given his clinical worsening and inability to participate with PT patient will be brought down to the acute care floor for further management of his suspected pneumonia. Allergies No Known Drug Allergies Allergy (Verified 10/15/21 21:33) Unknown No Known Allergies Allergy (Uncoded 06/18/17 11:31) Unknown Home Medications: Albuterol Neb [Proventil 0.083% Neb Soln] 2.5 mg NEB [id number] amp 05/11/24 Amiodarone HCl [Cordarone*] 200 mg FT BID tab 05/11/24 Apixaban [Eliquis] 5 mg FT BID 05/11/24 Aspirin Chewable [Aspirin Chewable*] 81 mg FT DAILY tab.chew 05/11/24 Atorvastatin Calcium [Lipitor] 40 mg FT BEDTIME tab 05/11/24 Famotidine [Pepcid*] 20 mg FT BID tab 05/11/24 Glucerna 1.5 Nando 300 ml FT QID bot 05/11/24 Insulin Regular, Human [Novolin R] See Protocol SQ ACHS ml 05/11/24 Levothyroxine [Synthroid*] 0.125 mg FT DAILYAC tab 05/11/24 Lidocaine 4% Patch [Lidoderm 5% Patch*] 1 patch TOP DAILY pat 05/11/24 Loperamide [Imodium*] 4 mg FT UD PRN cap 05/11/24 Meclizine HCl [Antivert*] 25 mg FT BID tab 05/11/24 Melatonin 5 mg PO BEDTIME 05/11/24 Metformin HCl [Glucophage*] 500 mg FT BIDWM tab 05/11/24 Nystatin Powder [Mycostatin (Powder)*] 1 appl TOP BID bottle 05/11/24 Pharmacy Consult 1 ea XX DAILYPRN PRN ea 05/11/24 Valacyclovir [Valtrex*] 500 mg FT BEDTIME tab 05/11/24 - Past Medical/Surgical History Diabetic: Yes -: NIDDM -: Diverticulitus -: Hyperlipidemia -: Neuropathy -: Shingles -: Ischemic Heart Disease -: tongue cancer stage four -: hypothyroidism -: History of stroke -: triple bypass -: cholecystectomy -: c6-c7 neck surgery -: r inguinal hernia -: l sided hernia -: nodule removal from left side of neck -: PEG tube Psychosocial/ Personal History: Patient is . He lives at home alone. - Social History Alcohol use: No CD- Drugs: No Caffeine use: No Review of Systems 10-point ROS is otherwise unremarkable General: Weakness, Malaise Physical Examination - Physical Exam General: In no apparent distress, Oriented x3, Other (drowsy) HEENT: Atraumatic, PERRLA, EOMI, Sclerae nonicteric Neck: Supple, 2+ carotid pulse no bruit, No LAD Respiratory: Diminished Cardiovascular: Regular rate/rhythm, Normal S1 S2 Gastrointestinal: Normal bowel sounds, No tenderness, Other (PEG tube in place) Musculoskeletal: No tenderness Integumentary: No rashes Neurological: Other (Speech slowed, slurred) Assessment and Plan - Plan Assessment: Healthcare associated pneumonia Recent UTI-E. coli Dysphagia, history of CVA with PEG tube in place Deconditioning Atrial fibrillation on chronic anticoagulation History of tongue/throat cancer History of CAD with previous CABG Hypertension Hyperlipidemia Hypothyroidism Diabetes mellitus type 2 Plan: Healthcare associated pneumonia Recent UTI-E. coli Blood cultures obtained today-will follow Lactate level ordered and pending Was previously on Zosyn, switched to Merrem at inpatient rehab Vancomycin added today by infectious disease Monitor CBC/fever trend Obtain viral swabs Dysphagia, history of CVA with PEG tube in place Continue PEG tube, tube feeds Aspiration precautions Deconditioning Continue PT Atrial fibrillation on chronic anticoagulation Amiodarone, Eliquis continued History of tongue/throat cancer History of CAD with previous CABG Hypertension Hyperlipidemia Hypothyroidism Continue medications Will check thyroid panel in the morning Diabetes mellitus type 2 Sliding scale insulin DVT PPX: Eliquis Code status: Full Discharge Plan: Jail Plan to discharge in: Greater than 2 days - Advance Directives Does patient have a Living Will: No Does patient have a Durable POA for Healthcare: No - Code Status/Comfort Care Code Status Assessed: Yes (Full code) Critical Care: No Time Spent Managing Pts Care (In Minutes): 70
[2024-05-11] MEDS: SODIUM CHL 0.9% 1000 ML BAG IV ONE (18:29)
[2024-05-11 20:15] VITALS: BMI 23.7
[2024-05-11] MEDS: INSULIN REGULAR (HUMAN) 100 UNIT/ML SQ SCH (21:00)
[2024-05-11] MEDS: ATORVASTATIN 40 MG TAB FT SCH (21:06)
[2024-05-11] MEDS: VALACYCLOVIR 500 MG TAB FT SCH (21:06)
[2024-05-11] MEDS: FAMOTIDINE 20 MG TAB PO SCH (21:06)
[2024-05-11] MEDS: AMIODARONE HCL 200 MG TAB FT SCH (21:06)
[2024-05-11] MEDS: APIXABAN 5 MG TABLET FT SCH (21:07)
[2024-05-11] MEDS: GABAPENTIN 300 MG CAP FT SCH (21:08)
[2024-05-12] MEDS: ASPIRIN 81 MG CHEWABLE TABLET FT SCH (10:35)
[2024-05-12 10:38] LABS: Absolute Basophils 0.1 K/uL (0-0.5); Absolute Eosinophils 0.1 K/uL (0-0.5); Absolute Lymphocytes (CBC) 0.6 K/uL (0.7-4.9); Absolute Monocytes 0.7 K/uL (0.1-1.3); Absolute Neutrophil 14.1 K/uL (1.8-8.0); Basophils % 0.4 % (0-1.3); Eosinophils % 0.5 % (0-4.4); Hematocrit 33.9 % (39.6-49.0); Hemoglobin 11.5 g/dL (13.6-17.9); Lymphocytes % 4.2 % (15.3-44.8); MCH 34.1 pg (27.0-35.0); MCHC 34.1 g/dL (32.0-36.0); MPV 9.3 fL (7.6-11.3); Monocytes % 4.2 % (3.3-12.3); Neutrophils % 90.7 % (41.7-73.7); Platelets 326 thou/uL (152-406); RBC Red Blood Cell Count 3.38 M/uL (4.33-5.43); Red Cell Distribution Width 16.7 % (12.1-15.2)
[2024-05-12 11:15] LABS: Albumin 1.7 g/dL (3.4-5.0); Albumin/Globulin Ratio 0.4 (1.1-1.8); Anion Gap 8.9 mEq/L (5.0-15.0); Bilirubin Total 0.7 mg/dL (0.2-1.0); Globulin 4.1 g/dL (2.3-3.5); Potassium 3.9 mEq/L (3.5-5.1); Protein, Total 5.8 g/dL (6.4-8.2); Thyroid Stimulating Hormone 1.1 uIU/mL (0.358-3.740)
[2024-05-12 13:01] LABS: Blood Morphology Comment NOT SEEN (NOT SEEN); Platelet Estimate ADEQ; White Blood Cell Scan OK (OK)
--- NOTE | 2024-05-12 15:12 | P.PN ---
Date of Service: 05/12/24 Subjective: Mentation has improved from yesterday Complains of cough, shortness of breath Lactate downtrending ROS: 10 point ROS as noted above, otherwise negative Physical exam GEN: Alert, oriented, NAD HEENT: Normal conjunctiva, sclera anicteric CV: Regular rate and rhythm, no edema Pulm: Nonlabored respirations on room air ABD: Soft, nontender, nondistended MSK: No joint tenderness Integumentary: No rashes Neuro: Normal speech, normal affect Vitals reviewed Assessment: Septic shock secondary to Healthcare associated pneumonia Recent UTI-E. 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 coli Lactate was greater than 4 Received 30 cc/kg IV fluid bolus overnight Lactate downtrending Was previously on Zosyn, switched to Merrem at inpatient rehab Vancomycin added today by infectious disease Monitor CBC/fever trend Obtain viral swabs Dysphagia, history of CVA with PEG tube in place Continue PEG tube, tube feeds Aspiration precautions Deconditioning Continue PT Atrial fibrillation on chronic anticoagulation Amiodarone, Eliquis continued History of tongue/throat cancer History of CAD with previous CABG Hypertension Hyperlipidemia Hypothyroidism Continue medications Will check thyroid panel in the morning Diabetes mellitus type 2 Sliding scale insulin DVT PPX: Eliquis Code status: Full Discharge Plan: Shelter Plan to discharge in: Greater than 2 days Time Spent Managing Pts Care (In Minutes): 35
[2024-05-12] MEDS ORDERED: HYDROCODONE/CHLORPHEN 5 ML/OSYR FT PRN (15:58)
[2024-05-12] MEDS: VANCOMYCIN 1.5 GM in NA CHLORIDE 0.9% 500 ML IVPB SCH (16:41)
[2024-05-12 20:12] LABS: Influenza A Ag Negative; Influenza B Ag Negative; SARS-CoV-2 Antigen Rapid Res Negative (Negative)
[2024-05-12] MEDS: ALBUTEROL 2.5 MG/3 ML NEB SOL NEB PRN (20:18)
[2024-05-12] MEDS: FUROSEMIDE 40 MG/4 ML VIAL IV ONE (20:34)
--- NOTE | 2024-05-12 21:07 | RAD REPORT ---
EXAM: Chest Single View HISTORY: 89 years Male sob COMPARISON: 05/11/2024 FINDINGS: LUNGS/PLEURA: Patchy multifocal interstitial and airspace disease which has progressed since 5 possible small pleural effusions. CARDIAC/MEDIASTINUM: Stable enlargement. UPPER ABDOMEN: No significant abnormality. BONES: Sternotomy. No acute abnormality. ACDF in the cervical spine. LINES/TUBES/OTHER: N/A IMPRESSION: Worsened aeration of the lungs bilaterally which could represent edema and/or multifocal pneumonia.
--- NOTE | 2024-05-12 21:20 | P.PN ---
Date of Service: 05/12/24 Subjective: Pt is seen in bed. Pt verbalized but slow speech. Staff report pt just got his first does of meropenum at 1am yday. Pt report no N/V/D. Objective: Vital Signs: Temp Pulse Resp BP Pulse Ox 97.9 F 84 16 129/71 90 L 05/12/24 16:00 05/12/24 16:00 05/12/24 16:00 05/12/24 16:00 05/12/24 16:00 PE General: tired appearance Neuro: aox3 slow speech Lungs: Basal crackles. Heart: S1, S2. Regular. Abdomen: Soft, nontender. Bowel sounds present. Extremities: No edema. Urine culture 05/04/24: E coli Chest xray 05/11/24: Bilateral pulmonary opacities, greater on the left particularly in the right lung base likely representing pneumonia. Blood culture 05/11/24: no growth Current abx: meropenum and vancomycin Laboratory Results WBC 15.50 thou/uL (4.3-10.9) H 05/12/24 10:21 RBC 3.38 M/uL (4.33-5.43) L 05/12/24 10:21 Hgb 11.5 g/dL (13.6-17.9) L 05/12/24 10:21 Hct 33.9 % (39.6-49.0) L 05/12/24 10:21 MCV 100.0 fL (80-100) 05/12/24 10:21 MCH 34.1 pg (27.0-35.0) 05/12/24 10:21 MCHC 34.1 g/dL (32.0-36.0) 05/12/24 10:21 RDW 16.7 % (12.1-15.2) H 05/12/24 10:21 Plt Count 326 thou/uL (152-406) 05/12/24 10:21 MPV 9.3 fL (7.6-11.3) 05/12/24 10:21 Neutrophils % 90.7 % (41.7-73.7) H 05/12/24 10:21 Lymphocytes % 4.2 % (15.3-44.8) L 05/12/24 10:21 Monocytes % 4.2 % (3.3-12.3) 05/12/24 10:21 Eosinophils % 0.5 % (0-4.4) 05/12/24 10:21 Basophils % 0.4 % (0-1.3) 05/12/24 10:21 Absolute Neutrophils 14.1 K/uL (1.8-8.0) H 05/12/24 10:21 Absolute Lymphocytes 0.6 K/uL (0.7-4.9) L 05/12/24 10:21 Absolute Monocytes 0.7 K/uL (0.1-1.3) 05/12/24 10:21 Absolute Eosinophils 0.1 K/uL (0-0.5) 05/12/24 10:21 Absolute Basophils 0.1 K/uL (0-0.5) 05/12/24 10:21 Platelet Estimate Adeq 05/12/24 10:21 Morphology Comment Not seen (NOT SEEN) 05/12/24 10:21 Sodium 142 mEq/L (136-145) 05/12/24 10:21 Potassium 3.9 mEq/L (3.5-5.1) 05/12/24 10:21 Chloride 111 mEq/L (98-107) H 05/12/24 10:21 Carbon Dioxide 26 mEq/L (21-32) 05/12/24 10:21 Anion Gap 8.9 mEq/L (5.0-15.0) 05/12/24 10:21 BUN 32 mg/dL (7-18) H 05/12/24 10:21 Creatinine 1.06 mg/dL (0.70-1.30) 05/12/24 10:21 Est GFR (CKD-EPI) 68 ml/min (=/>90) L 05/12/24 10:21 Glucose 150 mg/dL (74-106) H 05/12/24 10:21 Lactic Acid 1.2 mmol/L (0.4-2.0) 05/12/24 10:21 Lactic Acid F/U @ 2Hr Reorder 05/11/24 19:22 Calcium 7.8 mg/dL (8.5-10.1) L 05/12/24 10:21 Total Bilirubin 0.7 mg/dL (0.2-1.0) 05/12/24 10:21 AST 78 U/L (15-37) H 05/12/24 10:21 ALT 101 U/L (16-61) H 05/12/24 10:21 Alkaline Phosphatase 76 U/L (45-117) 05/12/24 10:21 Serum Total Protein 5.8 g/dL (6.4-8.2) L 05/12/24 10:21 Albumin 1.7 g/dL (3.4-5.0) L 05/12/24 10:21 Globulin 4.1 g/dL (2.3-3.5) H 05/12/24 10:21 Albumin/Globulin Ratio 0.4 (1.1-1.8) L 05/12/24 10:21 TSH 1.100 uIU/mL (0.358-3.740) 05/12/24 10:21 Free T4 1.80 ng/dL (0.76-1.46) H 05/12/24 10:21 Influenza Type A Ag Negative 05/12/24 19:47 Influenza Type B Ag Negative 05/12/24 19:47 SARS-CoV-2 Ag (Rapid) Negative (Negative) 05/12/24 19:47 SARS CoV-2 Rapid Comm See below 05/12/24 19:47 Smear Scan Ok (OK) 05/12/24 10:21 Assessment and Plan 1. UTI and pneumonia Leukocytosis. 15.5 Continue with meropenem q8h. Urine culture is showing E coli. We will also recommend to cover for pneumonitis with vancomycin and continue meropenem. blood cultures pending Case discussed with DR. Maldonado during round in agreement
[2024-05-12 22:38] LABS: Arterial Blood Carboxyhemoglob 1.1 % (0-1.5); Blood Gas Oxyhemoglobin 95.6 % (94-97); Blood Gas THB 13.8 g/dl (12-18); Blood O2 Saturation 97.5 % (92-98.5)
[2024-05-13 06:51] LABS: Absolute Basophils 0.1 K/uL (0-0.5); Absolute Lymphocytes (CBC) 0.8 K/uL (0.7-4.9); Absolute Monocytes 0.8 K/uL (0.1-1.3); Absolute Neutrophil 11.8 K/uL (1.8-8.0); Basophils % 0.9 % (0-1.3); Eosinophils % 0.2 % (0-4.4); Hematocrit 34.2 % (39.6-49.0); Hemoglobin 11.6 g/dL (13.6-17.9); Lymphocytes % 5.9 % (15.3-44.8); MCH 33.7 pg (27.0-35.0); MCHC 33.8 g/dL (32.0-36.0); MCV 99.8 fL (80-100); MPV 8.9 fL (7.6-11.3); Monocytes % 5.8 % (3.3-12.3); Neutrophils % 87.2 % (41.7-73.7); Platelets 385 thou/uL (152-406); RBC Red Blood Cell Count 3.43 M/uL (4.33-5.43); Red Cell Distribution Width 16.4 % (12.1-15.2)
[2024-05-13 06:58] LABS: Albumin 1.6 g/dL (3.4-5.0); Albumin/Globulin Ratio 0.4 (1.1-1.8); Anion Gap 5.6 mEq/L (5.0-15.0); Bilirubin Total 0.7 mg/dL (0.2-1.0); Globulin 3.9 g/dL (2.3-3.5); Potassium 3.6 mEq/L (3.5-5.1); Protein, Total 5.5 g/dL (6.4-8.2)
[2024-05-13] MEDS: ALBUMIN HUMAN 25% 100 ML IV ONE (08:13)
[2024-05-13] MEDS: FUROSEMIDE 40 MG/4 ML VIAL IV SCH (08:14)
[2024-05-13] MEDS: KCL 20 MEQ/100 mL IVPB 20 MEQ/100 ML BAG IV SCH (09:38)
--- NOTE | 2024-05-13 12:29 | P.PN ---
Date of Service: 05/13/24 Subjective: Increasing dyspnea overnight Required BiPAP Chest x-ray shows multifocal pneumonia versus pulmonary edema Weaned to nasal cannula this morning ROS: 10 point ROS as noted above, otherwise negative Physical exam GEN: Alert, oriented, NAD HEENT: Normal conjunctiva, sclera anicteric CV: Regular rate and rhythm, no edema Pulm: Nonlabored respirations on nasal cannula, bibasilar crackles ABD: Soft, nontender, nondistended MSK: No joint tenderness Integumentary: No rashes Neuro: Normal speech, normal affect Vitals reviewed Assessment: Septic shock secondary to Healthcare associated pneumonia Recent UTI-E. 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
[2024-05-14 05:54] LABS: Absolute Basophils 0.1 K/uL (0-0.5); Absolute Eosinophils 0.2 K/uL (0-0.5); Absolute Lymphocytes (CBC) 1.3 K/uL (0.7-4.9); Absolute Monocytes 0.8 K/uL (0.1-1.3); Absolute Neutrophil 10.3 K/uL (1.8-8.0); Basophils % 0.5 % (0-1.3); Eosinophils % 1.6 % (0-4.4); Hematocrit 32.3 % (39.6-49.0); Lymphocytes % 10.5 % (15.3-44.8); MCH 33.6 pg (27.0-35.0); MCHC 34.1 g/dL (32.0-36.0); MCV 98.6 fL (80-100); MPV 8.9 fL (7.6-11.3); Monocytes % 6.3 % (3.3-12.3); Neutrophils % 81.1 % (41.7-73.7); Platelets 405 thou/uL (152-406); RBC Red Blood Cell Count 3.27 M/uL (4.33-5.43); Red Cell Distribution Width 16.3 % (12.1-15.2)
[2024-05-14 06:13] LABS: Albumin 1.6 g/dL (3.4-5.0); Albumin/Globulin Ratio 0.4 (1.1-1.8); Anion Gap 5.6 mEq/L (5.0-15.0); Bilirubin Total 0.8 mg/dL (0.2-1.0); Globulin 3.8 g/dL (2.3-3.5); Potassium 3.6 mEq/L (3.5-5.1); Protein, Total 5.4 g/dL (6.4-8.2)
--- NOTE | 2024-05-14 07:43 | RAD REPORT ---
EXAM: Chest Single View HISTORY: 89 years Male dyspnea COMPARISON: 05/12/2024 FINDINGS: LUNGS/PLEURA: Bilateral airspace disease which is mostly similar though there may be some marginal im provement in aeration at the right upper lobe. Probable small pleural effusions. CARDIAC/MEDIASTINUM: The cardiac silhouette is within normal limits. UPPER ABDOMEN: No significant abnormality. BONES: Sternotomy. No acute abnormality. LINES/TUBES/OTHER: N/A IMPRESSION: Similar to marginally improved aeration of lungs compared with 05/04/2024. Findings remain consistent with edema and/or multifocal pneumonia.
[2024-05-14] MEDS: POTASSIUM 25 MEQ EFFERV TAB PO ONE (08:51)
[2024-05-14] MEDS: ALBUMIN HUMAN 25% 100 ML IV ONE (08:52)
--- NOTE | 2024-05-14 14:09 | P.PN ---
Date of Service: 05/14/24 Subjective: Dyspnea is improving No acute events overnight States feeling a little better ROS: 10 point ROS as noted above, otherwise negative Physical exam GEN: Alert, oriented, NAD HEENT: Normal conjunctiva, sclera anicteric CV: Regular rate and rhythm, no edema Pulm: Nonlabored respirations on nasal cannula, bibasilar crackles ABD: Soft, nontender, nondistended MSK: No joint tenderness Integumentary: No rashes Neuro: Normal speech, normal affect Vitals reviewed Assessment: Septic shock secondary to Healthcare associated pneumonia Recent UTI-E. 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
[2024-05-14] MEDS: ACETAMINOPHEN 325 MG TABLET FT PRN (20:07)
[2024-05-15 06:29] LABS: Absolute Basophils 0.1 K/uL (0-0.5); Absolute Eosinophils 0.3 K/uL (0-0.5); Absolute Lymphocytes (CBC) 1.2 K/uL (0.7-4.9); Absolute Monocytes 0.6 K/uL (0.1-1.3); Absolute Neutrophil 9.2 K/uL (1.8-8.0); Basophils % 0.8 % (0-1.3); Eosinophils % 2.6 % (0-4.4); Hematocrit 33.4 % (39.6-49.0); Hemoglobin 11.2 g/dL (13.6-17.9); Lymphocytes % 10.5 % (15.3-44.8); MCH 33.5 pg (27.0-35.0); MCHC 33.6 g/dL (32.0-36.0); MCV 99.7 fL (80-100); MPV 8.7 fL (7.6-11.3); Monocytes % 5.4 % (3.3-12.3); Neutrophils % 80.7 % (41.7-73.7); Platelets 494 thou/uL (152-406); RBC Red Blood Cell Count 3.35 M/uL (4.33-5.43); Red Cell Distribution Width 16.1 % (12.1-15.2)
[2024-05-15 06:44] LABS: Albumin 1.6 g/dL (3.4-5.0); Albumin/Globulin Ratio 0.4 (1.1-1.8); Anion Gap 5.6 mEq/L (5.0-15.0); Bilirubin Total 0.8 mg/dL (0.2-1.0); Globulin 3.8 g/dL (2.3-3.5); Potassium 3.6 mEq/L (3.5-5.1); Protein, Total 5.4 g/dL (6.4-8.2)
[2024-05-15] MEDS: POTASSIUM 25 MEQ EFFERV TAB PO ONE (09:26)
--- NOTE | 2024-05-15 13:43 | P.PN ---
Date of Service: 05/15/24 Subjective: Dyspnea is improving No acute events overnight overall with slow improvement ROS: 10 point ROS as noted above, otherwise negative Physical exam GEN: Alert, oriented, NAD HEENT: Normal conjunctiva, sclera anicteric CV: Regular rate and rhythm, no edema Pulm: Nonlabored respirations on nasal cannula, bibasilar crackles ABD: Soft, nontender, nondistended MSK: No joint tenderness Integumentary: No rashes Neuro: Normal speech, normal affect Vitals reviewed Assessment: Septic shock secondary to Healthcare associated pneumonia Recent UTI-E. 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
--- NOTE | 2024-05-15 14:02 | P.PN ---
Date of Service: 05/15/24 Subjective: Pt is seen in bed. Pt verbalized but slow speech. Pt report no fever, N/V. pt report diarrhea one time today. Objective: Vital Signs: Temp Pulse Resp BP Pulse Ox 97.8 F 67 15 101/50 L 93 05/15/24 12:00 05/15/24 12:00 05/15/24 12:00 05/15/24 12:00 05/15/24 12:00 PE General: tired appearance Neuro: aox3 slow speech Lungs: Basal crackles. Heart: S1, S2. Regular. Abdomen: Soft, nontender. Bowel sounds present. Extremities: No edema. Urine culture 05/04/24: E coli Chest xray 05/11/24: Bilateral pulmonary opacities, greater on the left particularly in the right lung base likely representing pneumonia. Blood culture 05/11/24: no growth Current abx: meropenum and vancomycin Laboratory Results WBC 11.40 thou/uL (4.3-10.9) H 05/15/24 06:04 RBC 3.35 M/uL (4.33-5.43) L 05/15/24 06:04 Hgb 11.2 g/dL (13.6-17.9) L 05/15/24 06:04 Hct 33.4 % (39.6-49.0) L 05/15/24 06:04 MCV 99.7 fL (80-100) 05/15/24 06:04 MCH 33.5 pg (27.0-35.0) 05/15/24 06:04 MCHC 33.6 g/dL (32.0-36.0) 05/15/24 06:04 RDW 16.1 % (12.1-15.2) H 05/15/24 06:04 Plt Count 494 thou/uL (152-406) H 05/15/24 06:04 MPV 8.7 fL (7.6-11.3) 05/15/24 06:04 Neutrophils % 80.7 % (41.7-73.7) H 05/15/24 06:04 Lymphocytes % 10.5 % (15.3-44.8) L 05/15/24 06:04 Monocytes % 5.4 % (3.3-12.3) 05/15/24 06:04 Eosinophils % 2.6 % (0-4.4) 05/15/24 06:04 Basophils % 0.8 % (0-1.3) 05/15/24 06:04 Absolute Neutrophils 9.2 K/uL (1.8-8.0) H 05/15/24 06:04 Absolute Lymphocytes 1.2 K/uL (0.7-4.9) 05/15/24 06:04 Absolute Monocytes 0.6 K/uL (0.1-1.3) 05/15/24 06:04 Absolute Eosinophils 0.3 K/uL (0-0.5) 05/15/24 06:04 Absolute Basophils 0.1 K/uL (0-0.5) 05/15/24 06:04 Platelet Estimate Adeq 05/12/24 10:21 Morphology Comment Not seen (NOT SEEN) 05/12/24 10:21 pH 7.43 (7.35-7.45) 05/12/24 20:21 pCO2 35.3 mmHG (35-45) 05/12/24 20:21 pO2 88.6 mmHG (75-100) 05/12/24 20:21 HCO3 23.0 mmol/L (22-28) 05/12/24 20:21 Base Excess -0.7 mmol/L 05/12/24 20:21 Oxyhemoglobin 95.6 % (94-97) 05/12/24 20:21 ABG O2 Sat (Measured) 97.5 % (92-98.5) 05/12/24 20:21 ABG Carboxyhemoglobin 1.1 % (0-1.5) 05/12/24 20:21 ABG Methemoglobin 0.8 % (0-1.5) 05/12/24 20:21 Other Total Hgb 13.8 g/dl (12-18) 05/12/24 20:21 Inspired O2 100.0 % 05/12/24 20:21 Sodium 140 mEq/L (136-145) 05/15/24 06:04 Potassium 3.6 mEq/L (3.5-5.1) 05/15/24 06:04 Chloride 105 mEq/L (98-107) 05/15/24 06:04 Carbon Dioxide 33 mEq/L (21-32) H 05/15/24 06:04 Anion Gap 5.6 mEq/L (5.0-15.0) 05/15/24 06:04 BUN 45 mg/dL (7-18) H 05/15/24 06:04 Creatinine 1.19 mg/dL (0.70-1.30) 05/15/24 06:04 Est GFR (CKD-EPI) 59 ml/min (=/>90) L 05/15/24 06:04 Glucose 147 mg/dL (74-106) H 05/15/24 06:04 POC Glucose 235 mg/dL (65-120) H 05/14/24 19:36 Lactic Acid 1.2 mmol/L (0.4-2.0) 05/12/24 10:21 Lactic Acid F/U @ 2Hr Reorder 05/11/24 19:22 Calcium 8.1 mg/dL (8.5-10.1) L 05/15/24 06:04 Total Bilirubin 0.8 mg/dL (0.2-1.0) 05/15/24 06:04 AST 92 U/L (15-37) H 05/15/24 06:04 ALT 87 U/L (16-61) H 05/15/24 06:04 Alkaline Phosphatase 95 U/L (45-117) 05/15/24 06:04 NT-Pro-B Natriuret Pep 31601 pg/mL (<450) H 05/12/24 21:36 Serum Total Protein 5.4 g/dL (6.4-8.2) L 05/15/24 06:04 Albumin 1.6 g/dL (3.4-5.0) L 05/15/24 06:04 Globulin 3.8 g/dL (2.3-3.5) H 05/15/24 06:04 Albumin/Globulin Ratio 0.4 (1.1-1.8) L 05/15/24 06:04 Procalcitonin 1.07 ng/mL (<0.50) H 05/12/24 21:36 TSH 1.100 uIU/mL (0.358-3.740) 05/12/24 10:21 Free T4 1.80 ng/dL (0.76-1.46) H 05/12/24 10:21 Vancomycin Trough 20.1 mcg/mL (5.0-20.0) H 05/14/24 15:08 Influenza Type A Ag Negative 05/12/24 19:47 Influenza Type B Ag Negative 05/12/24 19:47 SARS-CoV-2 Ag (Rapid) Negative (Negative) 05/12/24 19:47 SARS CoV-2 Rapid Comm See below 05/12/24 19:47 Smear Scan Ok (OK) 05/12/24 10:21 Assessment and Plan 1. UTI and pneumonia Leukocytosis improving. wbc 11.4 Continue with meropenem q8h. Urine culture is showing E coli. We will also recommend to cover for pneumonitis with vancomycin and continue meropenem. blood cultures no growth Order probiotic due to diarrhea concern. Case discussed with DR. Maldonado during round in agreement
[2024-05-15] MEDS: VANCOMYCIN 1.5 GM in NA CHLORIDE 0.9% 500 ML IVPB SCH (16:32)
[2024-05-16 07:03] LABS: Absolute Basophils 0.1 K/uL (0-0.5); Absolute Eosinophils 0.2 K/uL (0-0.5); Absolute Lymphocytes (CBC) 1.2 K/uL (0.7-4.9); Absolute Monocytes 0.6 K/uL (0.1-1.3); Absolute Neutrophil 10.4 K/uL (1.8-8.0); Basophils % 0.5 % (0-1.3); Eosinophils % 1.9 % (0-4.4); Hemoglobin 12.1 g/dL (13.6-17.9); Lymphocytes % 9.3 % (15.3-44.8); MCH 33.6 pg (27.0-35.0); MCHC 33.7 g/dL (32.0-36.0); MCV 99.8 fL (80-100); MPV 8.7 fL (7.6-11.3); Monocytes % 5.2 % (3.3-12.3); Neutrophils % 83.1 % (41.7-73.7); Platelets 572 thou/uL (152-406); RBC Red Blood Cell Count 3.61 M/uL (4.33-5.43); Red Cell Distribution Width 16.4 % (12.1-15.2)
[2024-05-16 07:39] LABS: Albumin 1.6 g/dL (3.4-5.0); Albumin/Globulin Ratio 0.4 (1.1-1.8); Anion Gap 9.7 mEq/L (5.0-15.0); Bilirubin Total 0.7 mg/dL (0.2-1.0); Globulin 4.2 g/dL (2.3-3.5); Potassium 3.7 mEq/L (3.5-5.1); Protein, Total 5.8 g/dL (6.4-8.2)
[2024-05-16] MEDS: LACTOBACILLUS/ACIDOPHILUS TAB PO SCH (09:01)
[2024-05-16] MEDS: POTASSIUM CL SA 10 MEQ TAB PO ONE (09:01)
[2024-05-16] MEDS: FUROSEMIDE 40 MG TABLET PO SCH (09:05)
[2024-05-16 14:45] LABS: Specific Gravity 1.021 (1.005-1.030); Sqamous Epithelial <5 /HPF (None Seen); Urine Bacteria <20 /HPF (<20); Urine Bilirubin NEGATIVE (Negative); Urine Blood 2+ (Negative); Urine Clarity Extremely Turbid (Clear); Urine Color Yellow (Yellow); Urine Crystals Unidentified Few /HPF (None Seen); Urine Culture Reflex Order REFLEXED; Urine Glucose NEGATIVE (Negative); Urine Ketones NEGATIVE (Negative); Urine Microscopic Reflex YN ORDER UMIC; Urine Mucus Slight /HPF (None Seen); Urine Nitrite NEGATIVE (Negative); Urine Protein 1+ (Negative); Urine RBC >50 /HPF (None Seen); Urine Urobilinogen 2+ (Normal); Urine WBC 20-50 /HPF (<5); Urine WBC Clump Rare /HPF (None Seen); Urine Yeast (Budding) Moderate /HPF (None Seen); Urine pH 6.5 (5.0-7.0)
--- NOTE | 2024-05-16 15:18 | PN ---
Subjective: The patient lying in bed. No new acute event. Chart reviewed. Vital signs reviewed. Continued to have some complaints of cough. Objective: Vital Signs: Temperature 97, pulse 56, respirations 14, blood pressure 100/60. Lungs: Basal crackles. Heart: S1, S2. Regular. Abdomen: Soft, nontender. Bowel sounds present. Extremities: No edema. Laboratory Data: Shows WBC 12.5, hemoglobin 12, platelets 572. Chemistry shows BUN of 48, creatinine 1.1. Assessment And Plan: Leukocytosis secondary to pneumonitis. Consider repeating urinalysis as patient was recently treated for urinary tract infection. Leukocytosis. Anemia of chronic disease. Monitor signs of infection with WBC and fever trends. NF/MODL Voice ID: [id number] Report ID: [id number] MTDD
--- NOTE | 2024-05-16 18:17 | P.PN ---
Date of Service: 05/16/24 Subjective: Awake but feeling fatigued still on 4 LNC no new complaints ROS: 10 point ROS as noted above, otherwise negative Physical exam GEN: Alert and oriented x2, NAD CV: Regular rate and rhythm, no edema Pulm: Nonlabored respirations, bibasilar crackles, 4 LNC ABD: Soft and nontender on palpation, active bowel sounds : elliott catheter in place MSK: No joint tenderness Integumentary: No rashes Neuro: Normal speech, normal affect Vitals reviewed Assessment: Septic shock secondary to Healthcare associated pneumonia Recent UTI-E. 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
[2024-05-17 04:19] LABS: Anion Gap 8.9 mEq/L (5.0-15.0); Potassium 3.9 mEq/L (3.5-5.1)
[2024-05-17 05:55] LABS: Magnesium 2.4 mg/dL (1.6-2.4)
[2024-05-17] MEDS: POTASSIUM 25 MEQ EFFERV TAB PO ONE (08:57)
[2024-05-17] MEDS: GLUCERNA 1.5 CAL 1,000 ML BOT FT SCH (12:37)
[2024-05-17] MEDS: FLUCONAZOLE 200mg IVPB 200 MG/100 ML BAG IV SCH (16:08)
--- NOTE | 2024-05-17 18:38 | P.PN ---
Date of Service: 05/17/24 Subjective: Pt is seen in bed. Pt verbalized but slow speech. Pt report no fever, N/V. pt report diarrhea one time today. Objective: Vital Signs: Temp Pulse Resp BP Pulse Ox 98.2 F 65 18 115/63 100 05/17/24 16:00 05/17/24 16:00 05/17/24 16:00 05/17/24 16:00 05/17/24 16:00 PE General: not in distress, seen in bed Neuro: aox3 slow speech Lungs: Basal crackles. Heart: S1, S2. Regular. Abdomen: Soft, nontender. Bowel sounds present. Extremities: No edema. urine culture 05/16/24: yeast Urine culture 05/04/24: E coli Chest xray 05/11/24: Bilateral pulmonary opacities, greater on the left particularly in the right lung base likely representing pneumonia. Blood culture 05/11/24: no growth Current abx: meropenum Laboratory Results WBC 12.50 thou/uL (4.3-10.9) H 05/16/24 06:46 RBC 3.61 M/uL (4.33-5.43) L 05/16/24 06:46 Hgb 12.1 g/dL (13.6-17.9) L D 05/16/24 06:46 Hct 36.0 % (39.6-49.0) L 05/16/24 06:46 MCV 99.8 fL (80-100) 05/16/24 06:46 MCH 33.6 pg (27.0-35.0) 05/16/24 06:46 MCHC 33.7 g/dL (32.0-36.0) 05/16/24 06:46 RDW 16.4 % (12.1-15.2) H 05/16/24 06:46 Plt Count 572 thou/uL (152-406) H 05/16/24 06:46 MPV 8.7 fL (7.6-11.3) 05/16/24 06:46 Neutrophils % 83.1 % (41.7-73.7) H 05/16/24 06:46 Lymphocytes % 9.3 % (15.3-44.8) L 05/16/24 06:46 Monocytes % 5.2 % (3.3-12.3) 05/16/24 06:46 Eosinophils % 1.9 % (0-4.4) 05/16/24 06:46 Basophils % 0.5 % (0-1.3) 05/16/24 06:46 Absolute Neutrophils 10.4 K/uL (1.8-8.0) H 05/16/24 06:46 Absolute Lymphocytes 1.2 K/uL (0.7-4.9) 05/16/24 06:46 Absolute Monocytes 0.6 K/uL (0.1-1.3) 05/16/24 06:46 Absolute Eosinophils 0.2 K/uL (0-0.5) 05/16/24 06:46 Absolute Basophils 0.1 K/uL (0-0.5) 05/16/24 06:46 Platelet Estimate Adeq 05/12/24 10:21 Morphology Comment Not seen (NOT SEEN) 05/12/24 10:21 pH 7.43 (7.35-7.45) 05/12/24 20:21 pCO2 35.3 mmHG (35-45) 05/12/24 20:21 pO2 88.6 mmHG (75-100) 05/12/24 20:21 HCO3 23.0 mmol/L (22-28) 05/12/24 20:21 Base Excess -0.7 mmol/L 05/12/24 20:21 Oxyhemoglobin 95.6 % (94-97) 05/12/24 20:21 ABG O2 Sat (Measured) 97.5 % (92-98.5) 05/12/24 20:21 ABG Carboxyhemoglobin 1.1 % (0-1.5) 05/12/24 20:21 ABG Methemoglobin 0.8 % (0-1.5) 05/12/24 20:21 Other Total Hgb 13.8 g/dl (12-18) 05/12/24 20:21 Inspired O2 100.0 % 05/12/24 20:21 Sodium Cancelled 05/17/24 04:00 Potassium Cancelled 05/17/24 04:00 Chloride Cancelled 05/17/24 04:00 Carbon Dioxide Cancelled 05/17/24 04:00 Anion Gap Cancelled 05/17/24 04:00 BUN Cancelled 05/17/24 04:00 Creatinine Cancelled 04/02/25 04:00 Est GFR (CKD-EPI) Cancelled 05/17/24 04:00 Glucose Cancelled 05/17/24 04:00 POC Glucose 180 mg/dL (65-120) H 05/17/24 16:02 Lactic Acid 1.2 mmol/L (0.4-2.0) 05/12/24 10:21 Lactic Acid F/U @ 2Hr Reorder 05/11/24 19:22 Calcium Cancelled 05/17/24 04:00 Magnesium 2.4 mg/dL (1.6-2.4) 05/17/24 03:05 Total Bilirubin 0.7 mg/dL (0.2-1.0) 05/16/24 06:46 AST 83 U/L (15-37) H 05/16/24 06:46 ALT 84 U/L (16-61) H 05/16/24 06:46 Alkaline Phosphatase 113 U/L (45-117) 05/16/24 06:46 NT-Pro-B Natriuret Pep 13076 pg/mL (<450) H 05/12/24 21:36 Serum Total Protein 5.8 g/dL (6.4-8.2) L 05/16/24 06:46 Albumin 1.6 g/dL (3.4-5.0) L 05/16/24 06:46 Globulin 4.2 g/dL (2.3-3.5) H 05/16/24 06:46 Albumin/Globulin Ratio 0.4 (1.1-1.8) L 05/16/24 06:46 Procalcitonin 1.07 ng/mL (<0.50) H 05/12/24 21:36 TSH 1.100 uIU/mL (0.358-3.740) 05/12/24 10:21 Free T4 1.80 ng/dL (0.76-1.46) H 05/12/24 10:21 Urine Color Yellow (Yellow) 05/16/24 12:45 Urine Clarity Extremely turbid (Clear) H 05/16/24 12:45 Urine pH 6.5 (5.0-7.0) 05/16/24 12:45 Ur Specific [place] 1.021 (1.005-1.030) 05/16/24 12:45 Glucose (UA)(Auto) Negative (Negative) 05/16/24 12:45 Urine Ketones Negative (Negative) 05/16/24 12:45 Urine Blood 2+ (Negative) H 05/16/24 12:45 Urine Nitrite Negative (Negative) 05/16/24 12:45 Urine Bilirubin Negative (Negative) 05/16/24 12:45 Urine Urobilinogen 2+ (Normal) H 05/16/24 12:45 Ur Leukocyte Esterase 75 Mylene/uL (Negative) H 05/16/24 12:45 Urine RBC >50 /HPF (None Seen) H 05/16/24 12:45 Urine WBC 20-50 /HPF (<5) H 05/16/24 12:45 Urine WBC Clumps Rare /HPF (None Seen) 05/16/24 12:45 Ur Squamous Epith Cells <5 /HPF (None Seen) 05/16/24 12:45 U Non-Squamous Epi Cells <5 /HPF (None Seen) 05/16/24 12:45 Unidentified Crystals Few /HPF (None Seen) 05/16/24 12:45 Urine Bacteria <20 /HPF (<20) 05/16/24 12:45 Urine Mucus Slight /HPF (None Seen) 05/16/24 12:45 Urine Yeast (Budding) Moderate /HPF (None Seen) H 05/16/24 12:45 Urine Culture Reflexed Reflexed 05/16/24 12:45 Urine Total Protein 1+ (Negative) H 05/16/24 12:45 Vancomycin Trough 16.6 mcg/mL (5.0-20.0) 05/17/24 03:05 Influenza Type A Ag Negative 05/12/24 19:47 Influenza Type B Ag Negative 05/12/24 19:47 SARS-CoV-2 Ag (Rapid) Negative (Negative) 05/12/24 19:47 SARS CoV-2 Rapid Comm See below 05/12/24 19:47 Smear Scan Ok (OK) 05/12/24 10:21 Assessment and Plan 1. Leukococytosis secondary to pneumonitis wbc 12.5 Continue with meropenem q8h. Urine culture is now showing yeast. pt is on fluconazole blood cultures no growth continue probiotic Monitor signs of infection with WBC and fever trends. 2. Anemia of chronic disease Case discussed with DR. Maldonado during round in agreement
--- NOTE | 2024-05-17 20:14 | P.PN ---
Date of Service: 05/17/24 Subjective: Awake, weak cough, attempted to wean Oxygen but he desaturates to the 70s Will continue with supportive care no new complaints ROS: 10 point ROS as noted above, otherwise negative Physical exam GEN: AAO x2, NAD CV: Regular rate and rhythm, s1 s2 present, no edema Pulm: symmetrical chest wall movement, bilateral crackles, 4 LNC ABD: Soft and nontender on palpation, active bowel sounds : elliott catheter in place MSK: No joint tenderness Integumentary: No rashes Neuro: Normal speech, normal affect Vitals reviewed Assessment: Septic shock secondary to Healthcare associated pneumonia Recent UTI-E. 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 Continue PEG tube, tube feeds Aspiration precautions Deconditioning Continue PT Atrial fibrillation on chronic anticoagulation Amiodarone, Eliquis continued History of tongue/throat cancer History of CAD with previous CABG Hypertension Hyperlipidemia Hypothyroidism Continue medications Will check thyroid panel in the morning Diabetes mellitus type 2 Sliding scale insulin Hospital interval course 05/17/24 -Continues with 4 LNC, will attempt to wean daily -incentive spirometry -Blood pressure has been soft, Nurse is checking BP manually -tube feeding re-evaluated and dropped to 237ml 5x daily -continue Merrem DVT PPX: Eliquis Code status: Full Discharge Plan: Skilled Nursing Plan to discharge in: Greater than 2 days
--- NOTE | 2024-05-18 16:22 | P.PN ---
Date of Service: 05/18/24 Subjective: Sleeping, tolerating Oxygen weaned down to 2 LNC no new complaints ROS: 10 point ROS as noted above, otherwise negative Physical exam GEN: Sleeping, NAD CV: Regular rate and rhythm, s1 s2 present Pulm: symmetrical chest wall movement, 2 LNC ABD: active bowel sounds, ND/NT : elliott catheter in place Integumentary: No rashes Neuro: Normal speech, normal affect Vitals reviewed Assessment: Septic shock secondary to Healthcare associated pneumonia Recent UTI-E. 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 Continue PEG tube, tube feeds Aspiration precautions Deconditioning Continue PT Atrial fibrillation on chronic anticoagulation Amiodarone, Eliquis continued History of tongue/throat cancer History of CAD with previous CABG Hypertension Hyperlipidemia Hypothyroidism Continue medications Will check thyroid panel in the morning Diabetes mellitus type 2 Sliding scale insulin Hospital interval course 05/17/24 -Continues with 4 LNC, will attempt to wean daily -incentive spirometry -Blood pressure has been soft, Nurse is checking BP manually -tube feeding re-evaluated and dropped to 237ml 5x daily -continue Merrem 05/18/24 -Now on 2 LNC, improving -SNF pending -holding lasix for soft blood pressure -Working with PT -Continuing antibiotic course DVT PPX: Eliquis Code status: Full Discharge Plan: Long Term Plan to discharge in: Greater than 2 days <Samantha Stinson - Last Filed: 05/18/24 16:02> Patient seen and examined. Plan of care discussed with Ms. Stinson. Patient respiratory condition is gradually improving. Oxygen has been weaned down to 2 L. Lasix on hold Aspiration pneumonia suspected. Dietitian was contacted to evaluate patient and change feeding tube smaller frequent diet as possible. Monitor gastric residuals. Continue IV meropenem and fluconazole Infectious diseases following and assisting with management. Continue PT. Patient is being evaluated for SNF <jailene florez - Last Filed: 05/19/24 17:17>
[2024-05-19 06:13] LABS: Absolute Basophils 0.1 K/uL (0-0.5); Absolute Eosinophils 0.3 K/uL (0-0.5); Absolute Lymphocytes (CBC) 1.4 K/uL (0.7-4.9); Absolute Monocytes 0.6 K/uL (0.1-1.3); Absolute Neutrophil 8.5 K/uL (1.8-8.0); Basophils % 0.6 % (0-1.3); Eosinophils % 3.1 % (0-4.4); Hematocrit 33.8 % (39.6-49.0); Hemoglobin 11.6 g/dL (13.6-17.9); Lymphocytes % 12.7 % (15.3-44.8); MCHC 34.4 g/dL (32.0-36.0); MCV 98.8 fL (80-100); MPV 8.8 fL (7.6-11.3); Monocytes % 5.5 % (3.3-12.3); Neutrophils % 78.1 % (41.7-73.7); Platelets 578 thou/uL (152-406); RBC Red Blood Cell Count 3.42 M/uL (4.33-5.43); Red Cell Distribution Width 15.9 % (12.1-15.2)
[2024-05-19 06:28] LABS: Anion Gap 8.3 mEq/L (5.0-15.0); Magnesium 2.3 mg/dL (1.6-2.4); Phosphorus 2.8 mg/dL (2.5-4.9); Potassium 4.3 mEq/L (3.5-5.1)
[2024-05-19 08:10] LABS: Blood Morphology Comment NOTED (NOT SEEN); Platelet Estimate INCR; Platelets Clumped NOTED; White Blood Cell Scan OK (OK)
--- NOTE | 2024-05-19 16:42 | P.PN ---
Date of Service: 05/19/24 Subjective: Pt is seen in bed. Pt verbalized but slow speech. Pt report no fever, N/V. pt report diarrhea one time yday. Objective: Vital Signs: Temp Pulse Resp BP Pulse Ox 97.8 F 69 18 104/60 96 05/19/24 12:00 05/19/24 12:00 05/19/24 12:00 05/19/24 12:00 05/19/24 12:00 PE General: not in distress, seen in bed Neuro: aox3 slow speech Lungs: Basal crackles. Heart: S1, S2. Regular. Abdomen: Soft, nontender. Bowel sounds present. Extremities: No edema. urine culture 05/16/24: yeast Urine culture 05/04/24: E coli Chest xray 05/11/24: Bilateral pulmonary opacities, greater on the left particularly in the right lung base likely representing pneumonia. Blood culture 05/11/24: no growth Current abx: meropenum Laboratory Results WBC 10.80 thou/uL (4.3-10.9) 05/19/24 05:51 RBC 3.42 M/uL (4.33-5.43) L 05/19/24 05:51 Hgb 11.6 g/dL (13.6-17.9) L 05/19/24 05:51 Hct 33.8 % (39.6-49.0) L 05/19/24 05:51 MCV 98.8 fL (80-100) 05/19/24 05:51 MCH 34.0 pg (27.0-35.0) 05/19/24 05:51 MCHC 34.4 g/dL (32.0-36.0) 05/19/24 05:51 RDW 15.9 % (12.1-15.2) H 05/19/24 05:51 Plt Count 578 thou/uL (152-406) H 05/19/24 05:51 MPV 8.8 fL (7.6-11.3) 05/19/24 05:51 Neutrophils % 78.1 % (41.7-73.7) H 05/19/24 05:51 Lymphocytes % 12.7 % (15.3-44.8) L 05/19/24 05:51 Monocytes % 5.5 % (3.3-12.3) 05/19/24 05:51 Eosinophils % 3.1 % (0-4.4) 05/19/24 05:51 Basophils % 0.6 % (0-1.3) 05/19/24 05:51 Absolute Neutrophils 8.5 K/uL (1.8-8.0) H 05/19/24 05:51 Absolute Lymphocytes 1.4 K/uL (0.7-4.9) 05/19/24 05:51 Absolute Monocytes 0.6 K/uL (0.1-1.3) 05/19/24 05:51 Absolute Eosinophils 0.3 K/uL (0-0.5) 05/19/24 05:51 Absolute Basophils 0.1 K/uL (0-0.5) 05/19/24 05:51 Platelet Estimate Incr 05/19/24 05:51 Clumped Platelets Noted 05/19/24 05:51 Schistocytes 1+ 05/19/24 05:51 Morphology Comment Noted (NOT SEEN) 05/19/24 05:51 pH 7.43 (7.35-7.45) 05/12/24 20:21 pCO2 35.3 mmHG (35-45) 05/12/24 20:21 pO2 88.6 mmHG (75-100) 05/12/24 20:21 HCO3 23.0 mmol/L (22-28) 05/12/24 20:21 Base Excess -0.7 mmol/L 05/12/24 20:21 Oxyhemoglobin 95.6 % (94-97) 05/12/24 20:21 ABG O2 Sat (Measured) 97.5 % (92-98.5) 05/12/24 20:21 ABG Carboxyhemoglobin 1.1 % (0-1.5) 05/12/24 20:21 ABG Methemoglobin 0.8 % (0-1.5) 05/12/24 20:21 Other Total Hgb 13.8 g/dl (12-18) 05/12/24 20:21 Inspired O2 100.0 % 05/12/24 20:21 Sodium 140 mEq/L (136-145) 05/19/24 05:51 Potassium 4.3 mEq/L (3.5-5.1) 05/19/24 05:51 Chloride 108 mEq/L (98-107) H 05/19/24 05:51 Carbon Dioxide 28 mEq/L (21-32) 05/19/24 05:51 Anion Gap 8.3 mEq/L (5.0-15.0) 05/19/24 05:51 BUN 39 mg/dL (7-18) H 05/19/24 05:51 Creatinine 0.98 mg/dL (0.70-1.30) 05/19/24 05:51 Est GFR (CKD-EPI) 74 ml/min (=/>90) L 05/19/24 05:51 Glucose 115 mg/dL (74-106) H 05/19/24 05:51 POC Glucose 144 mg/dL (65-120) H 05/19/24 11:50 Lactic Acid 1.2 mmol/L (0.4-2.0) 05/12/24 10:21 Lactic Acid F/U @ 2Hr Reorder 05/11/24 19:22 Calcium 7.7 mg/dL (8.5-10.1) L 05/19/24 05:51 Phosphorus 2.8 mg/dL (2.5-4.9) 05/19/24 05:51 Magnesium 2.3 mg/dL (1.6-2.4) 05/19/24 05:51 Total Bilirubin 0.7 mg/dL (0.2-1.0) 05/16/24 06:46 AST 83 U/L (15-37) H 05/16/24 06:46 ALT 84 U/L (16-61) H 05/16/24 06:46 Alkaline Phosphatase 113 U/L (45-117) 05/16/24 06:46 NT-Pro-B Natriuret Pep 58508 pg/mL (<450) H 05/12/24 21:36 Serum Total Protein 5.8 g/dL (6.4-8.2) L 05/16/24 06:46 Albumin 1.6 g/dL (3.4-5.0) L 05/16/24 06:46 Globulin 4.2 g/dL (2.3-3.5) H 05/16/24 06:46 Albumin/Globulin Ratio 0.4 (1.1-1.8) L 05/16/24 06:46 Procalcitonin 1.07 ng/mL (<0.50) H 05/12/24 21:36 TSH 1.100 uIU/mL (0.358-3.740) 05/12/24 10:21 Free T4 1.80 ng/dL (0.76-1.46) H 05/12/24 10:21 Urine Color Yellow (Yellow) 05/16/24 12:45 Urine Clarity Extremely turbid (Clear) H 05/16/24 12:45 Urine pH 6.5 (5.0-7.0) 05/16/24 12:45 Ur Specific [place] 1.021 (1.005-1.030) 05/16/24 12:45 Glucose (UA)(Auto) Negative (Negative) 05/16/24 12:45 Urine Ketones Negative (Negative) 05/16/24 12:45 Urine Blood 2+ (Negative) H 05/16/24 12:45 Urine Nitrite Negative (Negative) 05/16/24 12:45 Urine Bilirubin Negative (Negative) 05/16/24 12:45 Urine Urobilinogen 2+ (Normal) H 05/16/24 12:45 Ur Leukocyte Esterase 75 Mylene/uL (Negative) H 05/16/24 12:45 Urine RBC >50 /HPF (None Seen) H 05/16/24 12:45 Urine WBC 20-50 /HPF (<5) H 05/16/24 12:45 Urine WBC Clumps Rare /HPF (None Seen) 05/16/24 12:45 Ur Squamous Epith Cells <5 /HPF (None Seen) 05/16/24 12:45 U Non-Squamous Epi Cells <5 /HPF (None Seen) 05/16/24 12:45 Unidentified Crystals Few /HPF (None Seen) 05/16/24 12:45 Urine Bacteria <20 /HPF (<20) 05/16/24 12:45 Urine Mucus Slight /HPF (None Seen) 05/16/24 12:45 Urine Yeast (Budding) Moderate /HPF (None Seen) H 05/16/24 12:45 Urine Culture Reflexed Reflexed 05/16/24 12:45 Urine Total Protein 1+ (Negative) H 05/16/24 12:45 Vancomycin Trough 16.6 mcg/mL (5.0-20.0) 05/17/24 03:05 Influenza Type A Ag Negative 05/12/24 19:47 Influenza Type B Ag Negative 05/12/24 19:47 SARS-CoV-2 Ag (Rapid) Negative (Negative) 05/12/24 19:47 SARS CoV-2 Rapid Comm See below 05/12/24 19:47 Smear Scan Ok (OK) 05/19/24 05:51 Assessment and Plan 1. Leukococytosis(improving) secondary to pneumonitis Continue with meropenem q8h. Urine culture is now showing yeast. pt is on fluconazole blood cultures no growth continue probiotic Monitor signs of infection with WBC and fever trends. 2. Anemia of chronic disease 3. diarrhea c diff pending continue probiotic Case discussed with DR. Maldonado during round in agreement
--- NOTE | 2024-05-19 17:32 | P.PN ---
Date of Service: 05/19/24 Subjective: Awake and tolerating room air Desaturates when working with PT, will continue 2 LNC and continue to wean no new complaints ROS: 10 point ROS as noted above, otherwise negative Physical exam GEN: Awake and alert, NAD CV: Regular rate and rhythm, s1 s2 present Pulm: Nonlabored breathing, 2 LNC ABD: active bowel sounds, ND/NT : elliott catheter in place Integumentary: No rashes Neuro: Normal speech, normal affect Vitals reviewed Assessment: Septic shock secondary to Healthcare associated pneumonia Recent UTI-E. 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 Continue PEG tube, tube feeds Aspiration precautions Deconditioning Continue PT Atrial fibrillation on chronic anticoagulation Amiodarone, Eliquis continued History of tongue/throat cancer History of CAD with previous CABG Hypertension Hyperlipidemia Hypothyroidism Continue medications Will check thyroid panel in the morning Diabetes mellitus type 2 Sliding scale insulin Hospital interval course 05/17/24 -Continues with 4 LNC, will attempt to wean daily -incentive spirometry -Blood pressure has been soft, Nurse is checking BP manually -tube feeding re-evaluated and dropped to 237ml 5x daily -continue Merrem 05/18/24 -Now on 2 LNC, improving -SNF pending -holding lasix for soft blood pressure -Working with PT -Continuing antibiotic course 05/19/24 -Tolerating Room air but desaturates when working with PT but returns to the 90% -Tolerating change to bolus tube feeding -Continue antibiotic course, afebrile -Soft blood pressures throughout the day, chronic since admission DVT PPX: Eliquis Code status: Full Discharge Plan: Care Home Plan to discharge in: Greater than 2 days
[2024-05-19] MEDS: MELATONIN 5 MG TABLET PO PRN (21:20)
[2024-05-20 06:09] LABS: Absolute Basophils 0.1 K/uL (0-0.5); Absolute Eosinophils 0.3 K/uL (0-0.5); Absolute Lymphocytes (CBC) 1.3 K/uL (0.7-4.9); Absolute Monocytes 0.4 K/uL (0.1-1.3); Absolute Neutrophil 7.8 K/uL (1.8-8.0); Eosinophils % 3.4 % (0-4.4); Hematocrit 35.6 % (39.6-49.0); Hemoglobin 11.9 g/dL (13.6-17.9); Lymphocytes % 13.3 % (15.3-44.8); MCHC 33.4 g/dL (32.0-36.0); MCV 98.8 fL (80-100); MPV 8.5 fL (7.6-11.3); Monocytes % 4.3 % (3.3-12.3); Platelets 625 thou/uL (152-406); RBC Red Blood Cell Count 3.61 M/uL (4.33-5.43)
[2024-05-20 06:26] LABS: Anion Gap 6.6 mEq/L (5.0-15.0); Magnesium 2.4 mg/dL (1.6-2.4); Potassium 4.6 mEq/L (3.5-5.1)
[2024-05-20 08:36] LABS: Blood Morphology Comment NOTED (NOT SEEN); Platelet Estimate ADEQ; White Blood Cell Scan OK (OK)
[2024-05-20 08:37] LABS: Anisocytosis SLIGHT; Macrocytosis SLIGHT
--- NOTE | 2024-05-20 15:22 | P.DS ---
Admission Date: 05/11/24 Discharge Date: 05/20/24 Disposition: TRANSFER TO SNF - REHAB Reason for Admission: Pneumonia Hospital Course: Diagnosis Septic shock secondary to Healthcare associated pneumonia Recent UTI-E. 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 He failed a swallow screen and was unable to tolerate anything by mouth without increased risk for aspiration so he had a PEG tube placed. After this patient was accepted to inpatient rehab however over the course of his stay he becoame increasingly weak, lethargic, unable to work with PT. He also developed a low-grade fever to 100.7. His urine culture taking on 05/04 showed E. coli, he has been on appropriate antibiotics since then for the urinary tract infection. Chest x-ray done showed pneumonia. Given his clinical worsening and inability to participate with PT patient was admitted to the medical floor for treatment. Patient developed septic shock associated with a pneumonia and was treated aggressively with IV hydration, treated with IV meropenem and vancomycin as recommended by infectious disease. His respiratory status worsened to the point patient required BiPAP. Patient was weaned off BiPAP to oxygen by nasal cannula as he responded to the antibiotics. Eventually oxygen was weaned down to 2 L by nasal cannula. Overall patient has clinically improved and participating in physical therapy. It was determined the patient would benefit more from skilled rehab. Of note patient had a recent E. coli UTI. He has been adequately treated with antibiotics for the UTI. Repeat urine culture grew yeast so patient was treated with fluconazole. Patient discharged with 4 more days of fluconazole to complete 7 days of treatment. He is discharged with Augmentin to complete treatment for aspiration pneumonia. 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 Atrial fibrillation on chronic anticoagulation He is on amiodarone, Eliquis. History of tongue/throat cancer History of CAD with previous CABG Hypertension Hyperlipidemia Hypothyroidism Continued home medications Diabetes mellitus type 2 Managed with insulin sliding scale as inpatient. Vital Signs/Physical Exam: Temp Pulse Resp BP Pulse Ox 97 F 50 15 104/58 L 96 05/20/24 12:00 05/20/24 12:00 05/20/24 12:00 05/20/24 12:00 05/20/24 12:00 Laboratory Data at Discharge: WBC 10.10 thou/uL (4.3-10.9) 05/20/24 06:01 Hgb 11.9 g/dL (13.6-17.9) L 05/20/24 06:01 Hct 35.6 % (39.6-49.0) L 05/20/24 06:01 Plt Count 625 thou/uL (152-406) H 05/20/24 06:01 Sodium 136 mEq/L (136-145) 05/20/24 06:01 Potassium 4.6 mEq/L (3.5-5.1) 05/20/24 06:01 BUN 38 mg/dL (7-18) H 05/20/24 06:01 Creatinine 1.10 mg/dL (0.70-1.30) 05/20/24 06:01 Glucose 138 mg/dL (74-106) H 05/20/24 06:01 Phosphorus 3.0 mg/dL (2.5-4.9) 05/20/24 06:01 Magnesium 2.4 mg/dL (1.6-2.4) 05/20/24 06:01 Total Bilirubin 0.7 mg/dL (0.2-1.0) 05/16/24 06:46 AST 83 U/L (15-37) H 05/16/24 06:46 ALT 84 U/L (16-61) H 05/16/24 06:46 Alkaline Phosphatase 113 U/L (45-117) 05/16/24 06:46 Home Medications: Albuterol Neb [Proventil 0.083% Neb Soln] 2.5 mg NEB [id number] amp 05/11/24 Amiodarone HCl [Cordarone*] 200 mg FT BID tab 05/11/24 Apixaban [Eliquis] 5 mg FT BID 05/11/24 Aspirin Chewable [Aspirin Chewable*] 81 mg FT DAILY tab.chew 05/11/24 Atorvastatin Calcium [Lipitor] 40 mg FT BEDTIME tab 05/11/24 Famotidine [Pepcid*] 20 mg FT BID tab 05/11/24 Glucerna 1.5 Nando 300 ml FT QID bot 05/11/24 Insulin Regular, Human [Novolin R] See Protocol SQ ACHS ml 05/11/24 Levothyroxine [Synthroid*] 0.125 mg FT DAILYAC tab 05/11/24 Lidocaine 4% Patch [Lidoderm 5% Patch*] 1 patch TOP DAILY pat 05/11/24 Meclizine HCl [Antivert*] 25 mg FT BID tab 05/11/24 Melatonin 5 mg PO BEDTIME 05/11/24 Metformin HCl [Glucophage*] 500 mg FT BIDWM tab 05/11/24 Nystatin Powder [Mycostatin (Powder)*] 1 appl TOP BID bottle 05/11/24 Valacyclovir [Valtrex*] 500 mg FT BEDTIME tab 05/11/24 Amiodarone HCl [Cordarone*] 200 mg FT BID tab 05/20/24 Amox/Clavulanate [Augmentin 875-125 Tab] 875 mg PO BID 7 Days #14 tab 05/20/24 Apixaban [Eliquis] 5 mg FT BID 05/20/24 Aspirin Chewable [Aspirin Chewable*] 81 mg FT DAILY tab.chew 05/20/24 Atorvastatin Calcium [Lipitor] 40 mg FT BEDTIME tab 05/20/24 Famotidine [Pepcid*] 20 mg PO BID tab 05/20/24 Fluconazole 200 mg PO DAILY 4 Days #4 tab 05/20/24 Furosemide [Lasix*] 40 mg PO DAILY tab 05/20/24 Glucerna 1.5 Nando 237 ml FT 5XD bot 05/20/24 Hydrocodone/Chlorphen Polis [Tussionex Oral Susp*] 5 ml FT BID PRN osyr 05/20/24 New Medications: Amox/Clavulanate [Augmentin 875-125 Tab] 875 mg PO BID 7 Days #14 tab Fluconazole 200 mg PO DAILY 4 Days #4 tab Physician Discharge Instructions: Diagnosis Septic shock secondary to Healthcare associated pneumonia Recent UTI-E. 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 He failed a swallow screen and was unable to tolerate anything by mouth without increased risk for aspiration so he had a PEG tube placed. After this patient was accepted to inpatient rehab however over the course of his stay he becoame increasingly weak, lethargic, unable to work with PT. He also developed a low-grade fever to 100.7. His urine culture taking on 05/04 showed E. coli, he has been on appropriate antibiotics since then for the urinary tract infection. Chest x-ray done showed pneumonia. Given his clinical worsening and inability to participate with PT patient was admitted to the medical floor for treatment. Patient developed septic shock associated with a pneumonia and was treated aggressively with IV hydration, treated with IV meropenem and vancomycin as recommended by infectious disease. His respiratory status worsened to the point patient required BiPAP. Patient was weaned off BiPAP to oxygen by nasal cannula as he responded to the antibiotics. Eventually oxygen was weaned down to 2 L by nasal cannula. Overall patient has clinically improved and participating in physical therapy. It was determined the patient would benefit more from skilled rehab. Of note patient had a recent E. coli UTI. He has been adequately treated with antibiotics for the UTI. Repeat urine culture grew yeast so patient was treated with fluconazole. Patient discharged with 4 more days of fluconazole to complete 7 days of treatment. He is discharged with Augmentin to complete treatment for aspiration pneumonia. 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 Atrial fibrillation on chronic anticoagulation He is on amiodarone, Eliquis. History of tongue/throat cancer History of CAD with previous CABG Hypertension Hyperlipidemia Hypothyroidism Continued home medications Diabetes mellitus type 2 Managed with insulin sliding scale as inpatient. 1. Please call and schedule a follow-up appointment with your PCP in 3-5 days - Please follow-up with your PCP for medication refills/adjustments 2. Please call and schedule a follow-up appointment with [text] in 3-5 days 3. Continue bolus tube feeds , n.p.o. 4. activity restrictions fall precautions, work with therapy 5. Return to the ED if symptoms worsen New medications Augmentin 875 mg twice daily x 7 days Fluconazole 200 mg daily x 4 days Followup: LEORA BURK MD [Primary Care Provider] - Time spent managing pt's care (in minutes): 40
[2024-05-21 05:09] LABS: Absolute Basophils 0.1 K/uL (0-0.5); Absolute Eosinophils 0.2 K/uL (0-0.5); Absolute Lymphocytes (CBC) 1.4 K/uL (0.7-4.9); Absolute Monocytes 0.4 K/uL (0.1-1.3); Absolute Neutrophil 6.9 K/uL (1.8-8.0); Basophils % 1.2 % (0-1.3); Eosinophils % 2.7 % (0-4.4); Hematocrit 37.4 % (39.6-49.0); Hemoglobin 12.7 g/dL (13.6-17.9); Lymphocytes % 15.2 % (15.3-44.8); MCH 33.7 pg (27.0-35.0); MCV 99.2 fL (80-100); MPV 8.8 fL (7.6-11.3); Monocytes % 4.7 % (3.3-12.3); Neutrophils % 76.2 % (41.7-73.7); Platelets 650 thou/uL (152-406); RBC Red Blood Cell Count 3.77 M/uL (4.33-5.43); Red Cell Distribution Width 15.7 % (12.1-15.2)
[2024-05-21 05:29] LABS: Magnesium 2.3 mg/dL (1.6-2.4); Phosphorus 3.1 mg/dL (2.5-4.9)
--- NOTE | 2024-05-21 14:25 | P.PN ---
Date of Service: 05/20/24 Subjective: Sleeping but easily awakens Improving, tolerating room air Dejesus catheter removed, urinating without difficulty no new complaints ROS: 10 point ROS as noted above, otherwise negative Physical exam GEN: Awake and alert, NAD CV: RRR, s1 s2 present, no murmur noted Pulm: Symmetrical chest wall movement, 2 LNC ABD: active bowel sounds, ND/NT Integumentary: No rashes Neuro: Normal speech, normal affect Vitals reviewed Assessment: Septic shock secondary to Healthcare associated pneumonia Recent UTI-E. 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 Continue PEG tube, tube feeds Aspiration precautions Deconditioning Continue PT Atrial fibrillation on chronic anticoagulation Amiodarone, Eliquis continued History of tongue/throat cancer History of CAD with previous CABG Hypertension Hyperlipidemia Hypothyroidism Continue medications Will check thyroid panel in the morning Diabetes mellitus type 2 Sliding scale insulin Hospital interval course 05/17/24 -Continues with 4 LNC, will attempt to wean daily -incentive spirometry -Blood pressure has been soft, Nurse is checking BP manually -tube feeding re-evaluated and dropped to 237ml 5x daily -continue Merrem 05/18/24 -Now on 2 LNC, improving -SNF pending -holding lasix for soft blood pressure -Working with PT -Continuing antibiotic course 05/19/24 -Tolerating Room air but desaturates when working with PT but returns to the 90% -Tolerating change to bolus tube feeding -Continue antibiotic course, afebrile -Soft blood pressures throughout the day, chronic since admission 05/20/24 - Discontinued Dejesus catheter and urinating without difficulty -Tolerating room air -Continue IV antibiotics while awaiting discharge - Ready for discharge DVT PPX: Eliquis Code status: Full Discharge Plan: Halfway Plan to discharge in: Greater than 2 days
--- NOTE | 2024-05-21 14:34 | P.PN ---
Date of Service: 05/21/24 Subjective: Required 2 L nasal cannula overnight Back on room air this morning no new complaints ROS: 10 point ROS as noted above, otherwise negative Physical exam GEN: alert and oriented x2, NAD CV: RRR, no murmur noted Pulm: Normal air movement, 2 LNC ABD: active bowel sounds, ND/NT Integumentary: No rashes Neuro: Normal speech, normal affect Vitals reviewed Assessment: Septic shock secondary to Healthcare associated pneumonia Recent UTI-E. 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 Continue PEG tube, tube feeds Aspiration precautions Deconditioning Continue PT Atrial fibrillation on chronic anticoagulation Amiodarone, Eliquis continued History of tongue/throat cancer History of CAD with previous CABG Hypertension Hyperlipidemia Hypothyroidism Continue medications Will check thyroid panel in the morning Diabetes mellitus type 2 Sliding scale insulin Hospital interval course 05/17/24 -Continues with 4 LNC, will attempt to wean daily -incentive spirometry -Blood pressure has been soft, Nurse is checking BP manually -tube feeding re-evaluated and dropped to 237ml 5x daily -continue Merrem 05/18/24 -Now on 2 LNC, improving -SNF pending -holding lasix for soft blood pressure -Working with PT -Continuing antibiotic course 05/19/24 -Tolerating Room air but desaturates when working with PT but returns to the 90% -Tolerating change to bolus tube feeding -Continue antibiotic course, afebrile -Soft blood pressures throughout the day, chronic since admission 05/20/24 - Discontinued Dejesus catheter and urinating without difficulty -Tolerating room air -Continue IV antibiotics while awaiting discharge - Ready for discharge 05/21/24 -Family requesting SNF at [facility] -Ready for discharge -Continue plan of care DVT PPX: Eliquis Code status: Full Discharge Plan: Care Home Plan to discharge in: Greater than 2 days
[2024-05-22 06:05] LABS: Absolute Basophils 0.2 K/uL (0-0.5); Absolute Eosinophils 0.2 K/uL (0-0.5); Absolute Lymphocytes (CBC) 1.4 K/uL (0.7-4.9); Absolute Monocytes 0.4 K/uL (0.1-1.3); Basophils % 2.1 % (0-1.3); Eosinophils % 2.8 % (0-4.4); Hematocrit 34.4 % (39.6-49.0); Hemoglobin 11.8 g/dL (13.6-17.9); MCH 33.8 pg (27.0-35.0); MCHC 34.2 g/dL (32.0-36.0); MPV 8.1 fL (7.6-11.3); Monocytes % 5.3 % (3.3-12.3); Neutrophils % 72.8 % (41.7-73.7); Nucleated Red Blood Cells % 0.1 % (0-0); Platelets 665 thou/uL (152-406); RBC Red Blood Cell Count 3.48 M/uL (4.33-5.43); Red Cell Distribution Width 16.2 % (12.1-15.2)
[2024-05-22 06:19] LABS: Anion Gap 8.1 mEq/L (5.0-15.0); Magnesium 2.4 mg/dL (1.6-2.4); Phosphorus 3.1 mg/dL (2.5-4.9); Potassium 4.1 mEq/L (3.5-5.1)
[2024-05-22] MEDS ORDERED: ALBUTEROL 2.5 MG/3 ML NEB SOL NEB PRN ×2 (07:07→16:02)
[2024-05-22 12:41] VITALS: BP 108/55; TEMP 97.5
[2024-05-22 12:57] VITALS: O2SAT 96
--- NOTE | 2024-05-22 12:57 | P.PN ---
Date of Service: 05/22/24 Subjective: Doing well Pending SNF No acute events overnight ROS: 10 point ROS as noted above, otherwise negative Physical exam GEN: alert and oriented x2, NAD CV: RRR, no murmur noted Pulm: Normal air movement, 2 LNC ABD: active bowel sounds, ND/NT Integumentary: No rashes Neuro: Normal speech, normal affect Vitals reviewed Assessment: Septic shock secondary to Healthcare associated pneumonia Recent UTI-E. 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 Continue PEG tube, tube feeds Aspiration precautions Deconditioning Continue PT Atrial fibrillation on chronic anticoagulation Amiodarone, Eliquis continued History of tongue/throat cancer History of CAD with previous CABG Hypertension Hyperlipidemia Hypothyroidism Continue medications Will check thyroid panel in the morning Diabetes mellitus type 2 Sliding scale insulin Hospital interval course 05/17/24 -Continues with 4 LNC, will attempt to wean daily -incentive spirometry -Blood pressure has been soft, Nurse is checking BP manually -tube feeding re-evaluated and dropped to 237ml 5x daily -continue Merrem 05/18/24 -Now on 2 LNC, improving -SNF pending -holding lasix for soft blood pressure -Working with PT -Continuing antibiotic course 05/19/24 -Tolerating Room air but desaturates when working with PT but returns to the 90% -Tolerating change to bolus tube feeding -Continue antibiotic course, afebrile -Soft blood pressures throughout the day, chronic since admission 05/20/24 - Discontinued Dejesus catheter and urinating without difficulty -Tolerating room air -Continue IV antibiotics while awaiting discharge - Ready for discharge 05/21/24 -Family requesting SNF at [facility] -Ready for discharge -Continue plan of care 05/22/24 Awaiting SNF no new changes DVT PPX: Eliquis Code status: Full Discharge Plan: Long-Term Plan to discharge in: Greater than 2 days <Alex Isbell - Last Filed: 05/22/24 12:55> Patient seen and examined. Plan of care discussed with Alex Isbell. Patient overall clinically improved and tolerating room air. Stable vitals. Patient is tolerating tube feeding. Tube feeding changed to smaller more frequent volumes. Patient slated for SNF at [facility] pending insurance approval. <jailene florez - Last Filed: 05/22/24 15:24>
[2024-05-22 13:54] LABS: Influenza A Ag Negative; Influenza B Ag Negative; SARS-CoV-2 Antigen Rapid Res Negative (Negative)
--- NOTE | 2024-05-22 15:22 | P.PN ---
Date of Service: 05/22/24 Subjective: Pt is seen in bed. Pt verbalized but slow speech. Pt report no fever, N/V. pt report diarrhea one time yday. Objective: Vital Signs: Temp Pulse Resp BP Pulse Ox 97.5 F 64 15 108/55 L 96 05/22/24 12:00 05/22/24 12:00 05/22/24 12:00 05/22/24 12:00 05/22/24 12:00 PE General: not in distress, seen in bed Neuro: aox3 slow speech Lungs: CTA Heart: S1, S2. Regular. Abdomen: Soft, nontender. Bowel sounds present. Extremities: No edema. urine culture 05/16/24: yeast Urine culture 05/04/24: E coli Chest xray 05/11/24: Bilateral pulmonary opacities, greater on the left particularly in the right lung base likely representing pneumonia. Blood culture 05/11/24: no growth Current abx: meropenum Laboratory Results Laboratory Results WBC 8.30 thou/uL (4.3-10.9) 05/22/24 05:43 RBC 3.48 M/uL (4.33-5.43) L 05/22/24 05:43 Hgb 11.8 g/dL (13.6-17.9) L 05/22/24 05:43 Hct 34.4 % (39.6-49.0) L 05/22/24 05:43 MCV 99.0 fL (80-100) 05/22/24 05:43 MCH 33.8 pg (27.0-35.0) 05/22/24 05:43 MCHC 34.2 g/dL (32.0-36.0) 05/22/24 05:43 RDW 16.2 % (12.1-15.2) H 05/22/24 05:43 Plt Count 665 thou/uL (152-406) H 05/22/24 05:43 MPV 8.1 fL (7.6-11.3) 05/22/24 05:43 Neutrophils % 72.8 % (41.7-73.7) 05/22/24 05:43 Lymphocytes % 17.0 % (15.3-44.8) 05/22/24 05:43 Monocytes % 5.3 % (3.3-12.3) 05/22/24 05:43 Eosinophils % 2.8 % (0-4.4) 05/22/24 05:43 Basophils % 2.1 % (0-1.3) H 05/22/24 05:43 Absolute Neutrophils 6.0 K/uL (1.8-8.0) 05/22/24 05:43 Absolute Lymphocytes 1.4 K/uL (0.7-4.9) 05/22/24 05:43 Absolute Monocytes 0.4 K/uL (0.1-1.3) 05/22/24 05:43 Absolute Eosinophils 0.2 K/uL (0-0.5) 05/22/24 05:43 Absolute Basophils 0.2 K/uL (0-0.5) 05/22/24 05:43 Platelet Estimate Adeq 05/20/24 06:01 Clumped Platelets Noted 05/19/24 05:51 Anisocytosis Slight 05/20/24 06:01 Macrocytosis Slight 05/20/24 06:01 Schistocytes 1+ 05/19/24 05:51 Morphology Comment Noted (NOT SEEN) 05/20/24 06:01 pH 7.43 (7.35-7.45) 05/12/24 20:21 pCO2 35.3 mmHG (35-45) 05/12/24 20:21 pO2 88.6 mmHG (75-100) 05/12/24 20:21 HCO3 23.0 mmol/L (22-28) 05/12/24 20:21 Base Excess -0.7 mmol/L 05/12/24 20:21 Oxyhemoglobin 95.6 % (94-97) 05/12/24 20:21 ABG O2 Sat (Measured) 97.5 % (92-98.5) 05/12/24 20:21 ABG Carboxyhemoglobin 1.1 % (0-1.5) 05/12/24 20:21 ABG Methemoglobin 0.8 % (0-1.5) 05/12/24 20:21 Other Total Hgb 13.8 g/dl (12-18) 05/12/24 20:21 Inspired O2 100.0 % 05/12/24 20:21 Sodium 135 mEq/L (136-145) L 05/22/24 05:43 Potassium 4.1 mEq/L (3.5-5.1) 05/22/24 05:43 Chloride 103 mEq/L (98-107) 05/22/24 05:43 Carbon Dioxide 28 mEq/L (21-32) 05/22/24 05:43 Anion Gap 8.1 mEq/L (5.0-15.0) 05/22/24 05:43 BUN 31 mg/dL (7-18) H 05/22/24 05:43 Creatinine 1.05 mg/dL (0.70-1.30) 05/22/24 05:43 Est GFR (CKD-EPI) 68 ml/min (=/>90) L 05/22/24 05:43 Glucose 117 mg/dL (74-106) H 05/22/24 05:43 POC Glucose 116 mg/dL (65-120) 05/21/24 19:59 Lactic Acid 1.2 mmol/L (0.4-2.0) 05/12/24 10:21 Lactic Acid F/U @ 2Hr Reorder 05/11/24 19:22 Calcium 8.3 mg/dL (8.5-10.1) L 05/22/24 05:43 Phosphorus 3.1 mg/dL (2.5-4.9) 05/22/24 05:43 Magnesium 2.4 mg/dL (1.6-2.4) 05/22/24 05:43 Total Bilirubin 0.7 mg/dL (0.2-1.0) 05/16/24 06:46 AST 83 U/L (15-37) H 05/16/24 06:46 ALT 84 U/L (16-61) H 05/16/24 06:46 Alkaline Phosphatase 113 U/L (45-117) 05/16/24 06:46 NT-Pro-B Natriuret Pep 00065 pg/mL (<450) H 05/12/24 21:36 Serum Total Protein 5.8 g/dL (6.4-8.2) L 05/16/24 06:46 Albumin 1.6 g/dL (3.4-5.0) L 05/16/24 06:46 Globulin 4.2 g/dL (2.3-3.5) H 05/16/24 06:46 Albumin/Globulin Ratio 0.4 (1.1-1.8) L 05/16/24 06:46 Procalcitonin 1.07 ng/mL (<0.50) H 05/12/24 21:36 TSH 1.100 uIU/mL (0.358-3.740) 05/12/24 10:21 Free T4 1.80 ng/dL (0.76-1.46) H 05/12/24 10:21 Urine Color Yellow (Yellow) 05/16/24 12:45 Urine Clarity Extremely turbid (Clear) H 05/16/24 12:45 Urine pH 6.5 (5.0-7.0) 05/16/24 12:45 Ur Specific [place] 1.021 (1.005-1.030) 05/16/24 12:45 Glucose (UA)(Auto) Negative (Negative) 05/16/24 12:45 Urine Ketones Negative (Negative) 05/16/24 12:45 Urine Blood 2+ (Negative) H 05/16/24 12:45 Urine Nitrite Negative (Negative) 05/16/24 12:45 Urine Bilirubin Negative (Negative) 05/16/24 12:45 Urine Urobilinogen 2+ (Normal) H 05/16/24 12:45 Ur Leukocyte Esterase 75 Mylene/uL (Negative) H 05/16/24 12:45 Urine RBC >50 /HPF (None Seen) H 05/16/24 12:45 Urine WBC 20-50 /HPF (<5) H 05/16/24 12:45 Urine WBC Clumps Rare /HPF (None Seen) 05/16/24 12:45 Ur Squamous Epith Cells <5 /HPF (None Seen) 05/16/24 12:45 U Non-Squamous Epi Cells <5 /HPF (None Seen) 05/16/24 12:45 Unidentified Crystals Few /HPF (None Seen) 05/16/24 12:45 Urine Bacteria <20 /HPF (<20) 05/16/24 12:45 Urine Mucus Slight /HPF (None Seen) 05/16/24 12:45 Urine Yeast (Budding) Moderate /HPF (None Seen) H 05/16/24 12:45 Urine Culture Reflexed Reflexed 05/16/24 12:45 Urine Total Protein 1+ (Negative) H 05/16/24 12:45 Vancomycin Trough 16.6 mcg/mL (5.0-20.0) 05/17/24 03:05 Influenza Type A Ag Negative 05/22/24 13:04 Influenza Type B Ag Negative 05/22/24 13:04 SARS-CoV-2 Ag (Rapid) Negative (Negative) 05/22/24 13:04 SARS CoV-2 Rapid Comm See below 05/22/24 13:04 Smear Scan Ok (OK) 05/20/24 06:01 Assessment and Plan 1. Leukococytosis(improving) secondary to pneumonitis Continue with meropenem q8h. Urine culture is now showing yeast. pt is on fluconazole blood cultures no growth continue probiotic Monitor signs of infection with WBC and fever trends. Pt is discharge today to [facility] rehab 2. Anemia of chronic disease Case discussed with DR. Maldonado during round in agreement
--- NOTE | 2024-05-23 13:11 | P.DS ---
Admission Date: 05/11/24 Discharge Date: 05/22/24 Disposition: TRANSFER TO SNF - REHAB Reason for Admission: Pneumonia Brief History of Present Illness: 89-year-old male with history of atrial fibrillation on chronic anticoagulation, hyperlipidemia, diabetes mellitus type 2, CAD, throat cancer, hypothyroidism with history of right pontine remote stroke was recently in our hospital and admitted for dysphagia, left-sided weakness. He failed a swallow screen and was unable to tolerate anything by mouth without increased risk for aspiration so he had a PEG tube placed. After this patient was accepted to inpatient rehab where he has been since 05/04, is currently 05/11. Over the course of the last 2 days patient has become increasingly weak, lethargic, unable to work with PT. He also developed a low-grade fever to 100.7 today and his white blood cell count was mildly elevated at 11. He had a urine culture performed on 05/04 which showed E. coli, he has been on appropriate antibiotics since then for the urinary tract infection. Subsequent chest x-ray was performed earlier today which showed concern for possibl pneumonia. Given his clinical worsening and inability to participate with PT patient will be brought down to the acute care floor for further management of his suspected pneumonia. Hospital Course: Assessment: Septic shock secondary to Healthcare associated pneumonia Recent UTI-E. coli Dysphagia, history of CVA with PEG tube in place Deconditioning Atrial fibrillation on chronic anticoagulation History of tongue/throat cancer History of CAD with previous CABG Hypertension Hyperlipidemia Hypothyroidism Diabetes mellitus type 2 Diagnosis Septic shock secondary to Healthcare associated pneumonia Recent UTI-E. 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 He failed a swallow screen and was unable to tolerate anything by mouth without increased risk for aspiration so he had a PEG tube placed. After this patient was accepted to inpatient rehab however over the course of his stay he becoame increasingly weak, lethargic, unable to work with PT. He also developed a low-grade fever to 100.7. His urine culture taking on 05/04 showed E. coli, he has been on appropriate antibiotics since then for the urinary tract infection. Chest x-ray done showed pneumonia. Given his clinical worsening and inability to participate with PT patient was admitted to the medical floor for treatment. Patient developed septic shock associated with a pneumonia and was treated aggressively with IV hydration, treated with IV meropenem and vancomycin as recommended by infectious disease. His respiratory status worsened to the point patient required BiPAP. Patient was weaned off BiPAP to oxygen by nasal cannula as he responded to the antibiotics. Eventually oxygen was weaned down to 2 L by nasal cannula. Overall patient has clinically improved and participating in physical therapy. It was determined the patient would benefit more from skilled rehab. Of note patient had a recent E. coli UTI. He has been adequately treated with antibiotics for the UTI. Repeat urine culture grew yeast so patient was treated with fluconazole. Patient discharged with 4 more days of fluconazole to complete 7 days of treatment. He is discharged with Augmentin to complete treatment for aspiration pneumonia. 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 Atrial fibrillation on chronic anticoagulation He is on amiodarone, Eliquis. History of tongue/throat cancer History of CAD with previous CABG Hypertension Hyperlipidemia Hypothyroidism Continued home medications Diabetes mellitus type 2 Managed with insulin sliding scale as inpatient. 1. Please call and schedule a follow-up appointment with your PCP in 3-5 days - Please follow-up with your PCP for medication refills/adjustments 2. Please call and schedule a follow-up appointment with [text] in 3-5 days 3. Continue bolus tube feeds , n.p.o. 4. activity restrictions fall precautions, work with therapy 5. Return to the ED if symptoms worsen New medications Augmentin 875 mg twice daily x 7 days Fluconazole 200 mg daily x 4 days Vital Signs/Physical Exam: Temp Pulse Resp BP Pulse Ox 97.5 F 64 15 108/55 L 96 05/22/24 16:00 05/22/24 16:00 05/22/24 16:00 05/22/24 16:05/22/24 16:00 General: Alert, In no apparent distress, Oriented x3 HEENT: Atraumatic, PERRLA, EOMI Neck: Supple, JVD not distended Respiratory: Clear to auscultation bilaterally, Normal air movement Cardiovascular: Regular rate/rhythm, Normal S1 S2 Gastrointestinal: Normal bowel sounds, Other (PEG in place) Musculoskeletal: No tenderness Integumentary: No rashes Neurological: Normal speech, Normal affect Laboratory Data at Discharge: WBC 8.30 thou/uL (4.3-10.9) 05/22/24 05:43 Hgb 11.8 g/dL (13.6-17.9) L 05/22/24 05:43 Hct 34.4 % (39.6-49.0) L 05/22/24 05:43 Plt Count 665 thou/uL (152-406) H 05/22/24 05:43 Sodium 135 mEq/L (136-145) L 05/22/24 05:43 Potassium 4.1 mEq/L (3.5-5.1) 05/22/24 05:43 BUN 31 mg/dL (7-18) H 05/22/24 05:43 Creatinine 1.05 mg/dL (0.70-1.30) 05/22/24 05:43 Glucose 117 mg/dL (74-106) H 05/22/24 05:43 Phosphorus 3.1 mg/dL (2.5-4.9) 05/22/24 05:43 Magnesium 2.4 mg/dL (1.6-2.4) 05/22/24 05:43 Total Bilirubin 0.7 mg/dL (0.2-1.0) 05/16/24 06:46 AST 83 U/L (15-37) H 05/16/24 06:46 ALT 84 U/L (16-61) H 05/16/24 06:46 Alkaline Phosphatase 113 U/L (45-117) 05/16/24 06:46 Home Medications: Albuterol Neb [Proventil 0.083% Neb Soln] 2.5 mg NEB [id number] amp 05/11/24 Amiodarone HCl [Cordarone*] 200 mg FT BID tab 05/11/24 Apixaban [Eliquis] 5 mg FT BID 05/11/24 Aspirin Chewable [Aspirin Chewable*] 81 mg FT DAILY tab.chew 05/11/24 Atorvastatin Calcium [Lipitor] 40 mg FT BEDTIME tab 05/11/24 Famotidine [Pepcid*] 20 mg FT BID tab 05/11/24 Glucerna 1.5 Nando 300 ml FT QID bot 05/11/24 Insulin Regular, Human [Novolin R] See Protocol SQ ACHS ml 05/11/24 Levothyroxine [Synthroid*] 0.125 mg FT DAILYAC tab 05/11/24 Lidocaine 4% Patch [Lidoderm 5% Patch*] 1 patch TOP DAILY pat 05/11/24 Meclizine HCl [Antivert*] 25 mg FT BID tab 05/11/24 Melatonin 5 mg PO BEDTIME 05/11/24 Metformin HCl [Glucophage*] 500 mg FT BIDWM tab 05/11/24 Nystatin Powder [Mycostatin (Powder)*] 1 appl TOP BID bottle 05/11/24 Valacyclovir [Valtrex*] 500 mg FT BEDTIME tab 05/11/24 Amiodarone HCl [Cordarone*] 200 mg FT BID tab 05/20/24 Amox/Clavulanate [Augmentin 875-125 Tab] 875 mg PO BID 7 Days #14 tab 05/20/24 Apixaban [Eliquis] 5 mg FT BID 05/20/24 Aspirin Chewable [Aspirin Chewable*] 81 mg FT DAILY tab.chew 05/20/24 Atorvastatin Calcium [Lipitor] 40 mg FT BEDTIME tab 05/20/24 Famotidine [Pepcid*] 20 mg PO BID tab 05/20/24 Fluconazole 200 mg PO DAILY 4 Days #4 tab 05/20/24 Furosemide [Lasix*] 40 mg PO DAILY tab 05/20/24 Glucerna 1.5 Nando 237 ml FT 5XD bot 05/20/24 Hydrocodone/Chlorphen Polis [Tussionex Oral Susp*] 5 ml FT BID PRN osyr 05/20/24 New Medications: Amox/Clavulanate [Augmentin 875-125 Tab] 875 mg PO BID 7 Days #14 tab Fluconazole 200 mg PO DAILY 4 Days #4 tab Physician Discharge Instructions: Diagnosis Septic shock secondary to Healthcare associated pneumonia Recent UTI-E. 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 He failed a swallow screen and was unable to tolerate anything by mouth without increased risk for aspiration so he had a PEG tube placed. After this patient was accepted to inpatient rehab however over the course of his stay he becoame increasingly weak, lethargic, unable to work with PT. He also developed a low-grade fever to 100.7. His urine culture taking on 05/04 showed E. coli, he has been on appropriate antibiotics since then for the urinary tract infection. Chest x-ray done showed pneumonia. Given his clinical worsening and inability to participate with PT patient was admitted to the medical floor for treatment. Patient developed septic shock associated with a pneumonia and was treated aggressively with IV hydration, treated with IV meropenem and vancomycin as recommended by infectious disease. His respiratory status worsened to the point patient required BiPAP. Patient was weaned off BiPAP to oxygen by nasal cannula as he responded to the antibiotics. Eventually oxygen was weaned down to 2 L by nasal cannula. Overall patient has clinically improved and participating in physical therapy. It was determined the patient would benefit more from skilled rehab. Of note patient had a recent E. coli UTI. He has been adequately treated with antibiotics for the UTI. Repeat urine culture grew yeast so patient was treated with fluconazole. Patient discharged with 4 more days of fluconazole to complete 7 days of treatment. He is discharged with Augmentin to complete treatment for aspiration pneumonia. 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 Atrial fibrillation on chronic anticoagulation He is on amiodarone, Eliquis. History of tongue/throat cancer History of CAD with previous CABG Hypertension Hyperlipidemia Hypothyroidism Continued home medications Diabetes mellitus type 2 Managed with insulin sliding scale as inpatient. 1. Please call and schedule a follow-up appointment with your PCP in 3-5 days - Please follow-up with your PCP for medication refills/adjustments 2. Please call and schedule a follow-up appointment with [text] in 3-5 days 3. Continue bolus tube feeds , n.p.o. 4. activity restrictions fall precautions, work with therapy 5. Return to the ED if symptoms worsen New medications Augmentin 875 mg twice daily x 7 days Fluconazole 200 mg daily x 4 days Followup: LEORA BURK MD [Primary Care Provider] - Time spent managing pt's care (in minutes): 44
== END 2024-05-22 15:40 | DRG 871 ==
LOC: 4TH 16:41
PROVIDERS: ADMIT Hospitalist; ATTEND Internal Medicine
PROC: 5A09557 Assistance with Respiratory Ventilation, Greater than 96 Consecutive Hours, Continuous Positive Airway Pressure (ICD-10-PCS; principal; 2024-05-11)
PROC: 0T9B70Z Drainage of Bladder with Drainage Device, Via Natural or Artificial Opening (ICD-10-PCS; 2024-05-12)
DX: A41.9 Sepsis, unspecified organism (principal); J69.0 Pneumonitis due to inhalation of food and vomit; R65.21 Severe sepsis with septic shock; N39.0 Urinary tract infection, site not specified; I48.91 Unspecified atrial fibrillation; E78.00 Pure hypercholesterolemia, unspecified; E03.9 Hypothyroidism, unspecified; E11.40 Type 2 diabetes mellitus with diabetic neuropathy, unspecified; I25.10 Atherosclerotic heart disease of native coronary artery without angina pectoris; B96.20 Unspecified Escherichia coli [E. coli] as the cause of diseases classified elsewhere; I69.391 Dysphagia following cerebral infarction; R13.10 Dysphagia, unspecified; Z60.2 Problems related to living alone; Z79.4 Long term (current) use of insulin; Z79.82 Long term (current) use of aspirin; Z79.01 Long term (current) use of anticoagulants; Z79.899 Other long term (current) drug therapy; Y95 Nosocomial condition
CPT/HCPCS: 36415; 71045; 80048; 80053; 80202; 81001; 82805; 82947; 83605; 83735; 83880; 84100; 84145; 84439; 84443; 85025; 87086; 87088; 87428; 92610; 94010; 94660; 94760; 97110; 97161; 97530; J1450; J1815; J1940; J3370; J3480; J7030; J7040; J7613; P9047